=== PATIENT | male | born 1975 | race Caucasian/White ===

== ENCOUNTER 2017-05-16 19:27 | Emergency (ER) | payer MEDICARE, MEDICAID, SELFPAY ==
[2017-05-16 19:27] VITALS: BP 142/65; PULSE 72; RESP 17; TEMP 36.2; O2SAT 98; BMI 22.1
--- NOTE | 2017-05-16 19:32 | ED.RN ---
CALLED FOR EKG.
[2017-05-16 19:45] VITALS: BP 130/77; PULSE 67; RESP 16; O2SAT 99
--- NOTE | 2017-05-16 19:54 | EKG12_ITS ---
Test Reason : CP Blood Pressure : / mmHG Vent. Rate : 068 BPM Atrial Rate : 068 BPM P-R Int : 168 ms QRS Dur : 088 ms QT Int : 390 ms P-R-T Axes : 053 -27 042 degrees QTc Int : 414 ms Normal sinus rhythm Normal ECG Confirmed by DAWIT MCCOLLUM, LAURITA ([id number]), managing editor LILIAN JAY ([id number]) on 05/19/2017 3:35:11 PM Referred By: BLAKE Confirmed By:LAURITA PASTOR MD
--- NOTE | 2017-05-16 19:54 | CT_ITS ---
STUDY: CTA CHEST REASON FOR EXAM: Male, 41 years old. Chest pain and dyspnea. History of aortic dissection. RADIATION DOSAGE (If Supplied By Facility): CTDIvol = ( ) mGy, DLP = ( ) mGycm TECHNIQUE: The examination was performed with the intravenous administration of 75 ml of Isovue 370 contrast material. Post-processing of the angiographic images was performed, with multiplanar reformation and 3D reconstruction. Individualized dose optimization techniques were used for this CT. COMPARISON: Prior chest CTA of March 20, 2017 FINDINGS: Normal enhancement of the main pulmonary artery and right and left pulmonary arteries. Normal enhancement of the bilateral peripheral pulmonary arteries. There is no demonstrated pulmonary embolism. Normal thoracic aorta and visualized great vessels. Stable chronic type a aortic dissection extending into the left subclavian artery, innominate artery, and left common carotid artery. Stable dilatation of the proximal thoracic aorta above the prosthetic aortic valve and stable general dilatation of the thoracic aorta. Left ventricular hypertrophy. Negative for coronary calcifications. Negative for substantial pericardial effusion. Normal mediastinum. Normal hilar regions. Normal visualized trachea and bronchi. Minimal posterior bibasilar atelectatic changes. Negative for major consolidation, new infiltrates or pleural effusion. Normal chest wall structures. Status post prior midline sternotomy. No acute bone findings or changes. CT/CTA Chest W/WO Contrast IMPRESSION: Stable chronic type a aortic dissection extending into the innominate artery, left common carotid artery left subclavian artery without evidence of further extension. The dissection extends in the included upper abdomen to the level of the superior mesenteric artery and celiac artery without dissection extending into those arteries. Stable dilatation of the thoracic aorta. Negative for pulmonary embolus. Left ventricular hypertrophy. Minimal posterior bibasilar atelectatic changes without other acute pulmonary findings. Negative for pleural effusion. Electronically Signed: Asha Clarke MD at 21:05 EST , Service support ,
[2017-05-16 19:57] VITALS: O2SAT 99
--- NOTE | 2017-05-16 19:58 | ED.VISSUMM ---
- ER Visit Summary Date of Service: 05/16/17 Chief Complaint: [] Chest pain History of Present Illness: The patient is a 41 M [] complaining of pleuritic chest pain with deep inspiration. He localizes the pain to his left lbhqsa-leuzdq-tusboyc chest wall. He denies any PE risk factors. He does have a significant history of thoracic ascending aortic dissection that was repaired surgically. Physical Examination: [] Afebrile, vital signs stable. Cardiovascular exam is regular rate and rhythm. Lungs are clear to auscultation. Abdomen is soft and nontender. Test Results: [] CTA of the chest: Negative for acute pathology. Labs: CBC, BMP within normal limits. Troponin negative. EKG: Normal sinus rhythm, rate of 68 without ischemic changes. Emergency Department Course and Treatment: [] Patient evaluated for possibility of pulmonary embolus and this was found to be negative. Labs and diagnostic studies all normal. Patient was encouraged to follow-up with his primary care physician. Treatment Plan: [] Discharge and follow-up with PCP. Disposition: [] Discharge, stable. Impression: [] Chest wall pain, unknown etiology This note was generated with [employer] dictation software. It may contain incorrect words, spelling, and punctuation that were not noted in review of the chart prior to signing ED Disposition - Plan for ED Patient: Chief Complaint: Chest Pain Referrals: Nguyễn Stark Chi, MD [Primary Care Provider] -
[2017-05-16] MEDS: Aspirin 81 MG TAB.CHEW 324 MG PO (20:00)
--- NOTE | 2017-05-16 20:01 | ED.DCSUM_ITS ---
- ER Visit Summary Date of Service: 05/16/17 Chief Complaint: [] Chest pain History of Present Illness: The patient is a 41 M [] complaining of pleuritic chest pain with deep inspiration. He localizes the pain to his left infero- mary lou-lateral chest wall. He denies any PE risk factors. He does have a significant history of thoracic ascending aortic dissection that was repaired surgically. Physical Examination: [] Afebrile, vital signs stable. Cardiovascular exam is regular rate and rhythm. Lungs are clear to auscultation. Abdomen is soft and nontender. Test Results: [] CTA of the chest: Negative for acute pathology. Labs: CBC, BMP within normal limits. Troponin negative. EKG: Normal sinus rhythm, rate of 68 without ischemic changes. Emergency Department Course and Treatment: [] Patient evaluated for possibility of pulmonary embolus and this was found to be negative. Labs and diagnostic studies all normal. Patient was encouraged to follow-up with his primary care physician. Treatment Plan: [] Discharge and follow-up with PCP. Disposition: [] Discharge, stable. Impression: [] Chest wall pain, unknown etiology This note was generated with [employer] dictation software. It may contain incorrect words, spelling, and punctuation that were not noted in review of the chart prior to signing ED Disposition - Plan for ED Patient: Chief Complaint: Chest Pain Referrals: Nguyễn Stark Chi, MD [Primary Care Provider] -
[2017-05-16 20:28] LABS: Absolute Lymphocyte Count 1.74 X10^3/ul (0.83-4.51); Absolute Neutrophil Count 4.3 X10^3/uL (2.0-7.7); Basophil# 0.01 X10^3/uL; Basophil% 0.2 % (0-1); Eosinophil# 0.05 X10^3/uL; Eosinophils% 0.8 % (0-5); Hematocrit 43.8 % (40-54); Hemoglobin 14.8 g/dl (13.0-16.5); Lymphocyte # 1.74 X10^3/ul (4.0); Lymphocyte % 26.2 % (19-41); Mean Corp Hgb Conc 33.8 g/gl (32-36); Mean Corpuscular Hgb 29.5 pg (27.0-32.0); Mean Corpuscular Volume 87.4 fL (80-94); Mean Platelet Vol. 10.4 fl (6.2-12.0); Monocyte# 0.54 X10^3/uL; Monocyte% 8.1 % (0-10); Neutrophil # 4.28 X10^3/uL (2.7-7.7); Neutrophil % 64.4 % (47-70); Platelet Count 205 K/mm3 (150-450); RBC Distribution Width CV 12.8 % (11.6-14.6); RBC Distribution Width SD 40.9 fl (35.1-43.9); Red Blood Count 5.01 M/mm3 (4.6-6.2); White Blood Count 6.6 K/mm3 (4.4-11.0)
[2017-05-16 20:29] LABS: POSITIVE COUNT NO; POSITIVE DIFFERENTIAL NO; POSITIVE MORPHOLOGY NO
[2017-05-16 20:51] LABS: Anion Gap 7 (5-15); BUN 20 mg/dL (7-18); BUN/Creat Ratio 17.7 RATIO (10-20); Calcium,Total 8.8 mg/dL (8.5-10.1); Chloride 107 mmol/L (98-107); Creatinine, Serum 1.13 mg/dL (0.70-1.30); EST Glomerular Filtration Rate 75 mL/min (>60); Est Glom Filt Rate - Afr Amer 91 mL/min (>60); Estimated Creatinine Clearance 82.15 ml/min; Glucose 94 mg/dL (74-106); Potassium 4.1 mmol/L (3.5-5.1); Sodium Level 140 mmol/L (136-145)
--- NOTE | 2017-05-16 21:09 | ED.DEP ---
ED Disposition - Plan for ED Patient: Disposition: Home or Assisted Living Chief Complaint: Chest Pain Instructions: ED Chest Wall Pain Jane Harris Referrals: Nguyễn Stark Chi, MD [Primary Care Provider] -
[2017-05-16 21:10] VITALS: BP 114/79; PULSE 68; RESP 16; O2SAT 98
[2017-05-16 21:13] VITALS: BP 114/79; PULSE 67; RESP 16; O2SAT 96
== END 2017-05-16 21:20 | disposition home or self-care (01) ==
PROVIDERS: Emergency Provider Emergency Medicine; Family Provider Family Medicine Geriatric Medicine; PCP Family Medicine Geriatric Medicine
DX: R07.89 Other chest pain (principal); I71.2 Thoracic aortic aneurysm, without rupture; Z79.82 Long term (current) use of aspirin; Z79.01 Long term (current) use of anticoagulants; Z79.899 Other long term (current) drug therapy
CPT/HCPCS: 71275; 80048; 84484; 85025; 93005; 99285; Q9967; A4216

== ENCOUNTER → 2017-07-17 10:22 | Outpatient (CLI) | payer MEDICARE, MEDICAID, SELFPAY ==
--- NOTE | 2017-07-17 10:23 | CDU_ITS ---
Reason For Study: dissection of carotid artery Rt. Velocities/BP Lt. Velocities/BP Prox CCA 115/15.8 cm/sec. Prox CCA 114/17.0 cm/sec. Mid CCA 116/19.9 cm/sec. Mid CCA 128/21.1 cm/sec. Dist CCA 111/20.5 cm/sec. Dist CCA 84.4/15.8 cm/sec. Prox ICA 88.5/16.4 cm/sec. Prox ICA 67.4/18.2 cm/sec. Mid ICA 82.1/24.0 cm/sec. Mid ICA 68.6/21.7 cm/sec. Dist ICA 78.0/25.2 cm/sec. Dist ICA 73.9/24.6 cm/sec. Rt. ICA/CCA = .8. Lt. ICA/CCA = .6. Prox ECA 121/19.3 cm/sec. Prox ECA 101/17.6 cm/sec. Rt. Vert. 66.3/13.5 cm/sec. Lt. Vert. 52.8/15.8 cm/sec. Right Extracranial There is intimal thickening but no significant atherosclerotic plaque noted in the right common carotid artery. There is intimal thickening but no significant atherosclerotic plaque noted in the right internal carotid artery. There is intimal thickening but no significant atherosclerotic plaque noted in the right external carotid artery. Antegrade flow is noted in the right vertebral artery. Left Extracranial There is intimal thickening but no significant atherosclerotic plaque noted in the left common carotid artery. There is intimal thickening but no significant atherosclerotic plaque noted in the left internal carotid artery. There is intimal thickening but no significant atherosclerotic plaque noted in the left external carotid artery. Antegrade flow is noted in the left vertebral artery. Procedure Carotid Duplex [id number]. The exam was diagnostic. Exam performed in department. Interpretation Summary No significant atherosclerotic plaque or stenosis noted in the internal carotid arteries bilaterally. Flow within the vertebral arteries is antegrade bilaterally. Ordering Physician: Kwesi Coy Referring Physician: Nguyễn Stark Chi Performed By: Claude Griffin, RVT
== END ==
PROVIDERS: Family Provider Family Medicine Geriatric Medicine; PCP Family Medicine Geriatric Medicine; Visit Provider Psychiatry & Neurology Neurology
DX: I77.71 Dissection of carotid artery (principal)
CPT/HCPCS: 93880

== ENCOUNTER 2017-07-30 17:07 | Emergency (ER) | payer MEDICARE, MEDICAID, SELFPAY ==
[2017-07-30 17:08] VITALS: BP 142/78; PULSE 75; RESP 16; TEMP 36.8; O2SAT 99; BMI 25.1
--- NOTE | 2017-07-30 17:12 | EKG12_ITS ---
Test Reason : CP Blood Pressure : / mmHG Vent. Rate : 066 BPM Atrial Rate : 066 BPM P-R Int : 178 ms QRS Dur : 084 ms QT Int : 398 ms P-R-T Axes : 050 -38 038 degrees QTc Int : 417 ms Normal sinus rhythm Left axis deviation Inferior infarct , age undetermined , cannot be excluded Abnormal ECG Confirmed by ENZO MCCOLLUM, HAILEY ([id number]), managing editor LILIAN JAY ([id number]) on 08/05/2017 3:09:24 PM Referred By: YANIQUE Confirmed By:HAILEY GIRALDO MD
--- NOTE | 2017-07-30 17:20 | RAD_ITS ---
STUDY: X-RAY CHEST REASON FOR EXAM: Male, 41 years old. Chest pain. History of aortic dissection. TECHNIQUE: Single AP portable view of the chest. COMPARISON: April 04, 2017. FINDINGS: The lungs are clear and expanded. There is no demonstrated pleural abnormality. Sternal cerclage wires are present from a prior sternotomy. Normal mediastinum and antony. Normal visualized pulmonary arteries. Normal visualized aortic arch and descending thoracic aorta. Normal visualized thoracic spine. Normal visualized ribs, clavicles, and shoulders. There is no demonstrated abnormality of the visualized soft tissue structures of the upper abdomen. RAD/Chest 1 View (Portable) IMPRESSION: Degenerative changes, as described above. No demonstrated acute cardiopulmonary process. Stable appearance. Electronically Signed: Tu Wilkerson MD at 18:02 EDT , Service support ,
--- NOTE | 2017-07-30 17:27 | CT_ITS ---
STUDY: CTA NECK WITH CONTRAST REASON FOR EXAM: Male, 41 years old. Pain. History of dissection. RADIATION DOSAGE (If Supplied By Facility): CTDIvol = ( 13.64 ) mGy, DLP = ( 974.30 ) mGycm TECHNIQUE: CT angiography with multi-detector data acquisition was performed from the aortic arch to the skull base following intravenous administration of 100 ml of Isovue 370 contrast. MIP images were reconstructed from the axial data set. Post-processing of the angiographic images was performed, with multiplanar reformation and 3D reconstruction. Individualized dose optimization techniques were used for this CT. COMPARISON: CTA chest dated 06/05/2017. CTA neck dated 03/31/2014. FINDINGS: AORTIC ARCH: There is a stable type a aortic dissection which originates in the descending aorta. Normal origins of the brachiocephalic, left common carotid, and left subclavian arteries. RIGHT CAROTID ARTERIES: Normal right common carotid artery (CCA). Normal right common carotid bulb. Normal origin of the right internal carotid (ICA) artery without a hemodynamically significant stenosis. Normal visualized cervical portion of the right internal carotid artery. Normal origin of the right external carotid artery (ECA). LEFT CAROTID ARTERIES: Stable dissection extending into the left common carotid artery. The dissection ends just prior to the bifurcation of the left internal and external carotid arteries. Normal origin of the left internal carotid (ICA) artery without a hemodynamically significant stenosis. Normal visualized cervical portion of the left internal carotid artery. Normal origin of the left external carotid artery (ECA). VERTEBRAL ARTERIES: A normal right vertebral artery. There is a stable dissection of the left subclavian artery which extends into the proximal left vertebral artery. CT/CTA Neck W/WO Contrast IMPRESSION: Normal right internal carotid artery. Stable dissection in the left common carotid artery which terminates just prior to the bifurcation of the left internal and external carotid arteries. Stable dissection in the proximal left vertebral artery. Please see the CTA Chest for additional details. Electronically Signed: Haile Hurley, at 18:53 EDT Tel , Service support ,
--- NOTE | 2017-07-30 17:27 | CT_ITS ---
STUDY: CTA CHEST REASON FOR EXAM: Male, 41 years old. Chest pain. History of dissection. RADIATION DOSAGE (If Supplied By Facility): CTDIvol = ( 13.64 ) mGy, DLP = ( 974.30 ) mGycm TECHNIQUE: The examination was performed with the intravenous administration of 100 ml of Isovue 370 contrast material. Post-processing of the angiographic images was performed, with multiplanar reformation and 3D reconstruction. Individualized dose optimization techniques were used for this CT. COMPARISON: 05/16/2017. FINDINGS: There is a stable type a aortic dissection which originates in the distal ascending aorta and extends through the aortic arch and descending thoracic aorta and into the visualized upper abdominal aorta. The dissection extends into the proximal brachiocephalic artery, but does not extend into the right subclavian artery or common carotid artery. The dissection extends into the the left common carotid artery and left subclavian artery. The dissection extends from the left subclavian artery into the proximal portion of the left vertebral artery. These findings are stable when compared with the prior exam. There are no filling defects within the pulmonary arteries to suggest pulmonary embolus. The heart and pericardium are within normal limits. The patient is status post sternotomy with stable postsurgical changes in the aortic root with stable dilatation of the aortic root. The heart and pericardium are within normal limits. There is no thoracic lymphadenopathy. There are no pulmonary infiltrates or pleural effusions. There is no pneumothorax. The visualized osseous structures are intact. CT/CTA Chest W/WO Contrast IMPRESSION: Stable type A aortic dissection as described above. The dissection is again noted to extend into the visualized upper abdominal aorta. However the dissection continues below the [id number] of this study. Therefore, the abdominal extent of the dissection is not evaluated on this exam. (The dissection continued through the entire abdominal aorta on the CT dated 04/18/2017). No evidence of pulmonary embolus. Clear lungs. Status post sternotomy with stable postsurgical changes in the aortic root with stable dilatation of the aortic root. Electronically Signed: Haile Hurley, at 19:01 EDT Tel , Service support ,
--- NOTE | 2017-07-30 17:37 | ED.DCSUM_ITS ---
- ER Visit Summary Date of Service: 07/30/17 Chief Complaint: Chest pain, neck pain History of Present Illness: The patient is a 41 M with history of aortic dissection that was surgically repaired in 2013 presents to the emergency department chest pain into his neck. Patient states that at that time, he had dissected into both carotid arteries. He states that he had been recovering without issue. Today, he began to have some substernal heaviness in his mid chest that went into his right neck. He describes some pain in his right neck worse when he moves. He denies any fevers or chills. He denies any trauma. He denies any recent coughing or sneezing. He denies any other systemic symptoms. He states that the pain is different than when he and his prior dissection. He did recently have carotid Dopplers this month which were unremarkable. He states he has been compliant with all his medications. Physical Examination: Vital signs reviewed General: Well-nourished, well-developed Head: Normocephalic, atraumatic Eyes: Pupils equal and reactive, extraocular muscles intact Neck, supple, no lymphadenopathy Heart: Regular rate and rhythm Respiratory: No distress, clear bilaterally Abdomen: Soft, nontender, nondistended, no peritoneal signs Back: Nontender Extremities: Nontender, no edema, no cords Skin: Normal color no rash Neuro: Alert and oriented, no focal or lateralizing deficits Test Results: [] Emergency Department Course and Treatment: The patient was having pain up into his neck. He does have a history of known dissection. He has a normal neurologic examination. He has had no trauma. However, given his history I did repeat CTA of the chest and neck. The CT is unchanged. He does show stable dissection. Cardiac enzymes are unremarkable. The patient has remained pain-free. He was mostly just concerned that his dissection may be worsening. At this time, I do not feel that any further workup is necessary. The patient will be discharged. Treatment Plan: [] Disposition: Discharge Impression: Chest pain This note was generated with [employer] dictation software. It may contain incorrect words, spelling, and punctuation that were not noted in review of the chart prior to signing ED Disposition - Plan for ED Patient: Chief Complaint: Chest Pain Instructions: ED Chest Pain NonCardiac Referrals: Nguyễn Stark Chi, MD [Primary Care Provider] -
[2017-07-30 17:40] VITALS: O2SAT 96
[2017-07-30 17:54] LABS: Absolute Lymphocyte Count 1.26 X10^3/ul (0.83-4.51); Absolute Neutrophil Count 4.2 X10^3/uL (2.0-7.7); Basophil# 0.02 X10^3/uL; Basophil% 0.3 % (0-1); Eosinophil# 0.05 X10^3/uL; Eosinophils% 0.9 % (0-5); Hematocrit 44.7 % (40-54); Lymphocyte # 1.26 X10^3/ul (4.0); Lymphocyte % 21.7 % (19-41); Mean Corp Hgb Conc 33.6 g/gl (32-36); Mean Corpuscular Hgb 29.5 pg (27.0-32.0); Mean Corpuscular Volume 87.8 fL (80-94); Mean Platelet Vol. 10.4 fl (6.2-12.0); Monocyte# 0.31 X10^3/uL; Monocyte% 5.3 % (0-10); Neutrophil # 4.15 X10^3/uL (2.7-7.7); Neutrophil % 71.6 % (47-70); Platelet Count 201 K/mm3 (150-450); RBC Distribution Width CV 12.3 % (11.6-14.6); RBC Distribution Width SD 39.7 fl (35.1-43.9); Red Blood Count 5.09 M/mm3 (4.6-6.2); White Blood Count 5.8 K/mm3 (4.4-11.0)
[2017-07-30 17:57] LABS: POSITIVE COUNT NO; POSITIVE DIFFERENTIAL NO; POSITIVE MORPHOLOGY NO
[2017-07-30 18:05] LABS: Anion Gap 7 (5-15); BUN 15 mg/dL (7-18); BUN/Creat Ratio 13.9 RATIO (10-20); Calcium,Total 8.6 mg/dL (8.5-10.1); Chloride 108 mmol/L (98-107); Creatinine, Serum 1.08 mg/dL (0.70-1.30); EST Glomerular Filtration Rate 79 mL/min (>60); Est Glom Filt Rate - Afr Amer 96 mL/min (>60); Glucose 113 mg/dL (74-106); Sodium Level 141 mmol/L (136-145)
[2017-07-30 18:53] VITALS: BP 124/73; PULSE 64; RESP 16; O2SAT 98
[2017-07-30 19:35] VITALS: BP 129/77; PULSE 67; RESP 16; O2SAT 97
== END 2017-07-30 19:36 | disposition home or self-care (01) ==
LOC: ED 18:28
PROVIDERS: Emergency Provider Emergency Medicine; Family Provider Family Medicine Geriatric Medicine; PCP Family Medicine Geriatric Medicine
DX: R07.9 Chest pain, unspecified (principal); I10 Essential (primary) hypertension; E78.00 Pure hypercholesterolemia, unspecified; Z79.82 Long term (current) use of aspirin; Z79.01 Long term (current) use of anticoagulants; Z79.899 Other long term (current) drug therapy; Z86.73 Personal history of transient ischemic attack (TIA), and cerebral infarction without residual deficits
CPT/HCPCS: 70498; 71045; 71275; 80048; 84484; 85025; 93005; 99285; Q9967; A4216

== ENCOUNTER → 2017-09-08 10:25 | Outpatient (CLI) | payer MEDICARE, MEDICAID, SELFPAY ==
--- NOTE | 2017-09-08 10:39 | RAD_ITS ---
STUDY: X-RAY - CERVICAL SPINE REASON FOR EXAM: Male, 41 years old. Neck pain and headache TECHNIQUE: 8 view(s) of the cervical spine were obtained. COMPARISON: None FINDINGS: Normal anterior atlantoaxial articulation. Normal odontoid process. Normal cervical lordosis. Normal vertebral bodies and endplates. Normal disc space heights. Normal visualized intervertebral neuroforamina. No evidence of instability on the flexion or extension views The soft tissue structures are unremarkable. There is no demonstrated fracture of the cervical spine. RAD/Cerv Spine Obl/Flex/Ext Comp IMPRESSION: Normal x-ray examination of the visualized cervical spine. Electronically Signed: Cornelio Thorpe MD at 11:38 EDT , Service support ,
--- NOTE | 2017-09-08 10:40 | RAD_ITS ---
STUDY: X-RAY - THORACIC SPINE REASON FOR EXAM: Male, 41 years old. Mid back pain TECHNIQUE: 4 view(s) of the thoracic spine were obtained. COMPARISON: None. FINDINGS: Normal kyphosis of the thoracic spine. There is no substantial scoliosis. Normal thoracic vertebrae and endplates. Normal disc space heights. The soft tissue structures are unremarkable. RAD/Thoracic Spine 3 Views IMPRESSION: Normal x-ray examination of the thoracic spine. Electronically Signed: Cornelio Thorpe MD at 11:39 EDT , Service support ,
== END ==
PROVIDERS: Family Provider Family Medicine Geriatric Medicine; PCP Family Medicine Geriatric Medicine; Visit Provider Psychiatry & Neurology Neurology
DX: M54.2 Cervicalgia (principal); M54.6 Pain in thoracic spine
CPT/HCPCS: 72052; 72072

== ENCOUNTER → 2017-11-06 13:09 | Outpatient (CLI) | payer MEDICARE, MEDICAID, SELFPAY ==
[2017-11-06 17:30] LABS: Absolute Lymphocyte Count 1.45 X10^3/ul (0.83-4.51); Absolute Neutrophil Count 2.8 X10^3/uL (2.0-7.7); Basophil# 0.01 X10^3/uL; Basophil% 0.2 % (0-1); Eosinophil# 0.07 X10^3/uL; Eosinophils% 1.4 % (0-5); Hematocrit 45.4 % (40-54); Hemoglobin 15.8 g/dl (13.0-16.5); Lymphocyte # 1.45 X10^3/ul (4.0); Lymphocyte % 29.7 % (19-41); Mean Corp Hgb Conc 34.8 g/gl (32-36); Mean Corpuscular Hgb 29.8 pg (27.0-32.0); Mean Corpuscular Volume 85.7 fL (80-94); Mean Platelet Vol. 11.2 fl (6.2-12.0); Monocyte# 0.53 X10^3/uL; Monocyte% 10.9 % (0-10); Neutrophil % 57.4 % (47-70); Platelet Count 224 K/mm3 (150-450); RBC Distribution Width CV 12.5 % (11.6-14.6); RBC Distribution Width SD 38.9 fl (35.1-43.9); White Blood Count 4.9 K/mm3 (4.4-11.0)
[2017-11-06 17:33] LABS: POSITIVE COUNT NO; POSITIVE DIFFERENTIAL NO; POSITIVE MORPHOLOGY NO
[2017-11-06 17:57] LABS: ALB/GLOB Ratio 1.2 RATIO (0.9-2.4); AST(SGOT) 23 U/L (15-37); Alanine Aminotransfer ALT/SGPT 33 U/L (16-61); Albumin, Serum 3.9 g/dL (3.2-5.0); Alkaline Phosphatase 76 U/L (45-117); Anion Gap 6 (5-15); BUN 16 mg/dL (7-18); BUN/Creat Ratio 13.4 RATIO (10-20); Calcium,Total 8.8 mg/dL (8.5-10.1); Chloride 108 mmol/L (98-107); Creatinine, Serum 1.19 mg/dL (0.70-1.30); EST Glomerular Filtration Rate 71 mL/min (>60); Est Glom Filt Rate - Afr Amer 86 mL/min (>60); Globulin 3.3 g/dL (2.2-4.2); Glucose 77 mg/dL (74-106); Potassium 4.7 mmol/L (3.5-5.1); Protein, Total 7.2 g/dL (6.4-8.2); Sodium Level 141 mmol/L (136-145); Thyroid Stim Hormone (TSH) 1.64 uIU/mL (0.358-3.74)
== END ==
PROVIDERS: Family Provider Family Medicine Geriatric Medicine; PCP Family Medicine Geriatric Medicine; Visit Provider Family Medicine Geriatric Medicine
DX: R53.83 Other fatigue (principal); F52.8 Other sexual dysfunction not due to a substance or known physiological condition
CPT/HCPCS: 36415; 80053; 84403; 84443; 85025

== ENCOUNTER 2018-01-02 09:16 | Emergency (ER) | payer MEDICARE, MEDICAID, SELFPAY ==
[2018-01-02 09:17] VITALS: BP 171/81; PULSE 69; RESP 16; O2SAT 99; BMI 26.6
[2018-01-02 09:21] VITALS: TEMP 36.8
--- NOTE | 2018-01-02 09:29 | EKG12_ITS ---
Test Reason : CP Blood Pressure : / mmHG Vent. Rate : 070 BPM Atrial Rate : 070 BPM P-R Int : 190 ms QRS Dur : 088 ms QT Int : 390 ms P-R-T Axes : 024 -34 011 degrees QTc Int : 421 ms Normal sinus rhythm Left axis deviation Abnormal ECG Confirmed by DAWIT MCCOLLUM, LAURITA ([id number]), online content editor LILIAN JAY ([id number]) on 01/07/2018 8:39:16 AM Referred By: Nguyễn Stark Confirmed By:LAURITA PASTOR MD
--- NOTE | 2018-01-02 09:30 | CT_ITS ---
STUDY: CTA NECK WITH CONTRAST REASON FOR EXAM: Male, 42 years old. Neck pain and chest pain. History of prior aortic dissection and repair. RADIATION DOSAGE (If Supplied By Facility): CTDIvol = ( 11.25 ) mGy, DLP = ( 806.44 ) mGycm TECHNIQUE: CT angiography with multi-detector data acquisition was performed from the aortic arch to the skull base following intravenous administration of 100 ml of Isovue 370 contrast. MIP images were reconstructed from the axial data set. Post-processing of the angiographic images was performed, with multiplanar reformation and 3D reconstruction. Individualized dose optimization techniques were used for this CT. COMPARISON: Comparison is made with prior study dated July 30, 2017. 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 Both the true and false lumina are opacified. There is evidence of postoperative changes at the level of the aortic root. The superior mesenteric artery and celiac artery arise from the anterior lateral aspect of the true lumen. The dissection extends into the proximal portion of the left subclavian artery as well as the proximal portion of the left common carotid artery. RIGHT CAROTID ARTERIES: Normal right common carotid artery (CCA). Normal right common carotid bulb. Normal origin of the right internal carotid (ICA) artery without a hemodynamically significant stenosis. Normal visualized cervical portion of the right internal carotid artery. Normal origin of the right external carotid artery (ECA). LEFT CAROTID ARTERIES: Normal left common carotid artery (CCA). Normal left common carotid bulb. Normal origin of the left internal carotid (ICA) artery without a hemodynamically significant stenosis. Normal visualized cervical portion of the left internal carotid artery. Normal origin of the left external carotid artery (ECA). VERTEBRAL ARTERIES: Normal bilateral vertebral arteries. 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 The dissection extends into the origin of the left subclavian artery and left common carotid artery. Both the true and false lumina are patent. Electronically Signed: Simon Loera MD at 11:22 EDT Tel [phone], Service support , STUDY: CTA CHEST REASON FOR EXAM: Male, 42 years old. History of the type a Balwinder type A aortic dissection and prior repair. Chest pain. RADIATION DOSAGE (If Supplied By Facility): CTDIvol = ( 11.25 ) mGy, DLP = ( 806.44 ) mGycm TECHNIQUE: The examination was performed with the intravenous administration of 100 ml of Isovue 370 contrast material. Post-processing of the angiographic images was performed, with multiplanar reformation and 3D reconstruction. Individualized dose optimization techniques were used for this CT. COMPARISON: Comparison is made with prior examination dated July 30, 2017. FINDINGS: Normal enhancement of the main pulmonary artery and right and left pulmonary arteries. Normal enhancement of the bilateral peripheral pulmonary arteries. There is no demonstrated pulmonary embolism. There is evidence of aortic dissection involving the descending aorta, aortic arch and descending thoracic aorta. Both lumina are patent. There is evidence of prior surgical repair involving the descending thoracic aorta. Once again, the dissection extends into the proximal portion of the right brachiocephalic artery as well as the left subclavian and left common carotid arteries. Normal heart and pericardium. Normal mediastinum. Normal hilar regions. Normal visualized trachea and bronchi. The lungs are well expanded. Normal pulmonary parenchyma. Normal pleura. Normal chest wall structures. Normal osseous structures. Is evidence of a dissection. Both true and false lumens are patent. The visceral vessels arise from the anterior aspect. The right renal artery arises from the false lumen and the left renal artery from the true lumen. CT/CTA Chest W/WO Contrast IMPRESSION: Stable examination. Electronically Signed: Simon Loera MD at 11:29 EDT Tel [phone], Service support ,
--- NOTE | 2018-01-02 09:34 | RAD_ITS ---
STUDY: X-RAY CHEST REASON FOR EXAM: Male, 42 years old. Chest pain. TECHNIQUE: Single AP portable view of the chest. COMPARISON: Comparison is made with prior examination dated July 30, 2017. FINDINGS: EKG electrodes are seen. The lungs are clear and expanded. There is no demonstrated pleural abnormality. Sternal cerclage wires are present from a prior sternotomy. Normal mediastinum and antony. Normal visualized pulmonary arteries. Normal visualized aortic arch and descending thoracic aorta. Normal visualized thoracic spine. Normal visualized ribs, clavicles, and shoulders. There is no demonstrated abnormality of the visualized soft tissue structures of the upper abdomen. RAD/Chest 1 View (Portable) IMPRESSION: No acute abnormality is seen. Electronically Signed: Simon Loera MD at 11:18 EDT Tel [phone], Service support ,
--- NOTE | 2018-01-02 09:36 | ED.DCSUM_ITS ---
- ER Visit Summary Date of Service: 01/02/18 Chief Complaint: Neck and chest pain History of Present Illness: The patient is a 42 M history of 4 years ago having aortic dissection. He also had a stroke at that time that left him with left hand weakness. They did an aortic sleeve repair and an aortic valve repair. He also has known bilateral carotid dissections. He states the last several days he has had gradual onset of neck pain and then developing chest pain. No nausea. No diaphoresis. No significant shortness of breath. He had a prior evaluation for this July of this year which was negative. No new findings at that time. He denies any history of coronary disease. He denies any recent exertional tones. Physical Examination: Middle-aged male. No acute distress. Initial blood pressure is elevated 171/81. Pulse ox 9 9% on room air no signs of hypoxia. He is in no distress. H EENT exam unremarkable. Neck nontender. Lungs clear to auscultation bilaterally. Heart regular rhythm rate about 70. He does have a 3/6 systolic ejection murmur. Consistent with his prosthetic aortic valve. Abdomen soft and nontender. No peritoneal signs. He is moving all 4 extremities. He does have significant weakness and loss of dexterity with his left hand secondary to his prior stroke. Neurologically is awake and alert. Test Results: CBC normal. BMP normal. Troponin normal. EKG sinus rhythm rate of 70 with no acute abnormality. Plain chest x-ray portable one view showed no acute abnormality. Prior sternotomy. CTA of the neck showed no acute abnormality and no change in his prior dissections. CTA of the chest again showed no acute abnormality. These radiographic studies were all read both by myself and the radiologist. Emergency Department Course and Treatment: Patient will undergo a cardiac workup with both a CTA of his neck and chest. Treated with IV fluids due to the contrast load. Treatment Plan: Repeat exam doing well at 1130. I went over all test results with the patient. He is comfortable being discharged home. Follow-up with his primary care physician. Disposition: Discharge Impression: Neck and chest pain of uncertain etiology History of prior aortic dissection with now a aortic sleeve and prosthetic aortic valve History of bilateral carotid dissections This note was generated with [employer] software. It may contain incorrect words, spelling, and punctuation that were not noted in review of the chart prior to signing ED Disposition - Plan for ED Patient: Chief Complaint: Chest Pain Referrals: Nguyễn Stark Chi, MD [Primary Care Provider] -
[2018-01-02 09:39] LABS: Absolute Lymphocyte Count 1.24 X10^3/ul (0.83-4.51); Absolute Neutrophil Count 3.5 X10^3/uL (2.0-7.7); Basophil# 0.02 X10^3/uL; Basophil% 0.4 % (0-1); Eosinophil# 0.05 X10^3/uL; Eosinophils% 0.9 % (0-5); Hematocrit 45.9 % (40-54); Hemoglobin 15.8 g/dl (13.0-16.5); Lymphocyte # 1.24 X10^3/ul (4.0); Lymphocyte % 23.4 % (19-41); Mean Corp Hgb Conc 34.4 g/gl (32-36); Mean Corpuscular Hgb 29.4 pg (27.0-32.0); Mean Corpuscular Volume 85.5 fL (80-94); Mean Platelet Vol. 10.1 fl (6.2-12.0); Monocyte# 0.44 X10^3/uL; Monocyte% 8.3 % (0-10); Neutrophil # 3.53 X10^3/uL (2.7-7.7); Neutrophil % 66.6 % (47-70); Platelet Count 208 K/mm3 (150-450); RBC Distribution Width CV 12.5 % (11.6-14.6); RBC Distribution Width SD 38.8 fl (35.1-43.9); Red Blood Count 5.37 M/mm3 (4.6-6.2); White Blood Count 5.3 K/mm3 (4.4-11.0)
[2018-01-02 09:40] LABS: POSITIVE COUNT NO; POSITIVE DIFFERENTIAL NO; POSITIVE MORPHOLOGY NO
[2018-01-02 09:51] VITALS: O2SAT 97
[2018-01-02 10:01] LABS: Anion Gap 9 (5-15); BUN 14 mg/dL (7-18); BUN/Creat Ratio 11.4 RATIO (10-20); Chloride 105 mmol/L (98-107); Creatinine, Serum 1.23 mg/dL (0.70-1.30); EST Glomerular Filtration Rate 68 mL/min (>60); Est Glom Filt Rate - Afr Amer 83 mL/min (>60); Estimated Creatinine Clearance 74.92 ml/min; Glucose 91 mg/dL (74-106); Potassium 4.1 mmol/L (3.5-5.1); Sodium Level 141 mmol/L (136-145)
[2018-01-02 10:20] VITALS: BP 120/72; PULSE 65; RESP 16; O2SAT 98
--- NOTE | 2018-01-02 11:42 | ED.DEP ---
ED Disposition - Plan for ED Patient: Disposition: Home or Assisted Living Chief Complaint: Chest Pain Instructions: ED Chest Pain Atypical Unkn Cause Referrals: Nguyễn Stark Chi, MD [Primary Care Provider] - 3-5 Days if not improving
[2018-01-02 11:55] VITALS: BP 126/82; PULSE 75; RESP 12; O2SAT 98
== END 2018-01-02 12:00 | disposition home or self-care (01) ==
PROVIDERS: Emergency Provider Emergency Medicine; Family Provider Family Medicine Geriatric Medicine; PCP Family Medicine Geriatric Medicine
DX: M54.2 Cervicalgia (principal); R07.9 Chest pain, unspecified; I69.334 Monoplegia of upper limb following cerebral infarction affecting left non-dominant side; I77.71 Dissection of carotid artery; Z95.2 Presence of prosthetic heart valve; Z79.01 Long term (current) use of anticoagulants; Z79.82 Long term (current) use of aspirin; Z79.899 Other long term (current) drug therapy
CPT/HCPCS: 70498; 71045; 71275; 80048; 84484; 85025; 93005; 99285; Q9967; A4216

== ENCOUNTER → 2018-04-09 15:53 | Outpatient (CLI) | payer MEDICARE, MEDICAID, SELFPAY ==
[2018-04-09 15:53] VITALS: BMI 22.1
== END ==
PROVIDERS: Family Provider Family Medicine Geriatric Medicine; PCP Family Medicine Geriatric Medicine; Referring Provider Family Medicine Geriatric Medicine; Visit Provider Family Medicine Geriatric Medicine
DX: R09.89 Other specified symptoms and signs involving the circulatory and respiratory systems (principal)
CPT/HCPCS: 87633

== ENCOUNTER 2018-04-24 10:30 | Outpatient (RCR) | payer MEDICARE, MEDICAID, SELFPAY ==
--- NOTE | 2017-12-09 13:21 | HP.OTEVAL_ITS ---
Patient's Visit Information BECK WANG Jr. is a 42 year old M, referred to Occupational Therapy by Nguyễn Stark, with a diagnosis of left hemiparesis. Date of Evaluation: 12/09/17 Occupational Therapist: Emperatriz Marie, ARIEL/Tila, CHT - Subjective Subjective: Pt returns for OT following a CVA with left UE weakness and decrease in functional ROM - pt states his left UE feels tight most to the time. This limits the ability to use her left UE for BADLS and IADLS. PT would like to decrease the tight feeling and increase use of his left hand with ADLS and IADLS.Pt has complex medical hx with dx of Anorgasmia, Bicuspid aortic valve, Proximal aortic dissection, seizure disorder, somnolence, along with GERD. - Pain left UE/hand 3 Pain Intensity Range: 3, 5 - ROM Shoulder: Right WNL left WFL Elbow: Right left WNL Forearm: right WNL left limited to N Wrist: right WNL left minimal ROM Comments: pt demo with limited functional ROM of left digits/wrist and foream. - Strength Line Helper: right 100# left 25# - Sensation Sensation Comments: tingling throughout left UE/hand - Movement Muscle Tone: left UE mod tone forearm/wrist hand Movement Comments: with movement pts left digits flex once fingers get tight pt has to stop and use is right hand to straighten his left digits/wrist out. - In-Hand Manipulation Finger to Palm Translation: Normal - Right, Severe - Left, Unable - Left Palm to Finger Translation: Normal - Right, Unable - Left Shift: Normal - Right, Unable - Left Rotation: Normal - Right, Unable - Left - DASH-Disabilities of Arm, Shoulder& Hand DASH Sum: 101 - Goals Goal:: pt will demo the ability to use left hand to grasp/release different size objects to use left UE as assisstive hand with BADLs and IADLS by D/C Goal:: pt will demo the ability to manipulate fasteners to increase pts ind. with BADLs and IADLs. Goal:: pt will demo the ability to use left UE for meal prep tasks, cleaning and laundry tasks at a ANTOLIN level by D/C Goal:: Pt will demo the ability to use left UE as assistive hand with functional task for greater than 30 min without needing to stop task and stretch left UE due to increase tone. - Rehabilitation General Assessment: pt demo with increase tone of left UE limiting pts ind. with BADLS and IADLs. Pt would benefit from skilled OT services to increase pts functional use of left UE/hand for BADLs and IADLS. Therapy will see pt 1x week for 12 weeks to challenged the above deficits. Pt agreeable to POC. Rehabilitation Potential: Good - Anticipated Interventions Anticipated Interventions: A/AAROM/PROM, Strengthening, Triggerpoint Release, Modalities, Orthoses, Fine Motor Coord/Bishnu, Neuro Reeducation, ADL Training, Education re assistive Equipment - Visit Plan Frequency: 1x/Week Duration: 3 Months TEXT: Thank you for the opportunity to evaluate your patient. For Medicare and Medicare HMO plans, please review the plan of care and approve it. It will need to be FAXED BACK to us at [phone] for Medicare purposes. Please let me know if there are questions or concerns regarding this plan of care. Physician Signature: Date:
== END 2018-04-24 17:00 | disposition home or self-care (01) ==
LOC: OT 10:30
PROVIDERS: Family Provider Family Medicine Geriatric Medicine; PCP Family Medicine Geriatric Medicine; Visit Provider Family Medicine Geriatric Medicine
DX: G81.94 Hemiplegia, unspecified affecting left nondominant side (principal)
CPT/HCPCS: 97110; 97112; 97140; 97166; 97530

== ENCOUNTER → 2018-05-11 14:06 | Outpatient (CLI) | payer MEDICARE, MEDICAID, SELFPAY ==
[2018-04-09 15:53] VITALS: BMI 22.1
[2018-05-11 16:41] LABS: Absolute Lymphocyte Count 1.33 X10^3/ul (0.83-4.51); Basophil# 0.01 X10^3/uL; Basophil% 0.1 % (0-1); Eosinophil# 0.06 X10^3/uL; Eosinophils% 0.8 % (0-5); Hematocrit 47.1 % (40-54); Hemoglobin 15.4 g/dl (13.0-16.5); Lymphocyte # 1.33 X10^3/ul (4.0); Lymphocyte % 18.8 % (19-41); Mean Corp Hgb Conc 32.7 g/gl (32-36); Mean Corpuscular Hgb 28.8 pg (27.0-32.0); Mean Corpuscular Volume 88.2 fL (80-94); Mean Platelet Vol. 10.8 fl (6.2-12.0); Monocyte# 0.66 X10^3/uL; Monocyte% 9.3 % (0-10); Neutrophil # 4.96 X10^3/uL (2.7-7.7); Neutrophil % 70.3 % (47-70); Platelet Count 223 K/mm3 (150-450); RBC Distribution Width SD 41.3 fl (35.1-43.9); Red Blood Count 5.34 M/mm3 (4.6-6.2); White Blood Count 7.1 K/mm3 (4.4-11.0)
[2018-05-11 16:51] LABS: POSITIVE COUNT NO; POSITIVE DIFFERENTIAL NO; POSITIVE MORPHOLOGY NO
[2018-05-11 17:02] LABS: ALB/GLOB Ratio 1.1 RATIO (0.9-2.4); AST(SGOT) 17 U/L (15-37); Alanine Aminotransfer ALT/SGPT 34 U/L (16-61); Albumin, Serum 3.7 g/dL (3.2-5.0); Alkaline Phosphatase 96 U/L (45-117); Anion Gap 10 (5-15); BUN 16 mg/dL (7-18); BUN/Creat Ratio 13.8 RATIO (10-20); Chloride 108 mmol/L (98-107); Creatinine, Serum 1.16 mg/dL (0.70-1.30); EST Glomerular Filtration Rate 73 mL/min (>60); Est Glom Filt Rate - Afr Amer 88 mL/min (>60); Globulin 3.5 g/dL (2.2-4.2); Glucose 78 mg/dL (74-106); Potassium 4.1 mmol/L (3.5-5.1); Protein, Total 7.2 g/dL (6.4-8.2); Sodium Level 145 mmol/L (136-145); Thyroid Stim Hormone (TSH) 2.09 uIU/mL (0.358-3.74)
== END ==
PROVIDERS: Family Provider Family Medicine Geriatric Medicine; PCP Family Medicine Geriatric Medicine; Visit Provider Family Medicine Geriatric Medicine
DX: F52.8 Other sexual dysfunction not due to a substance or known physiological condition (principal); R53.83 Other fatigue
CPT/HCPCS: 36415; 80053; 84403; 84443; 85025

== ENCOUNTER → 2018-06-25 13:54 | Outpatient (CLI) | payer MEDICARE, SELFPAY ==
[2018-04-09 15:53] VITALS: BMI 22.1
[2018-06-25 17:18] LABS: Absolute Lymphocyte Count 1.01 X10^3/ul (0.83-4.51); Absolute Neutrophil Count 6.9 X10^3/uL (2.0-7.7); Basophil# 0.02 X10^3/uL; Basophil% 0.2 % (0-1); Eosinophil# 0.12 X10^3/uL; Eosinophils% 1.3 % (0-5); Hemoglobin 11.5 g/dl (13.0-16.5); Lymphocyte # 1.01 X10^3/ul (4.0); Mean Corp Hgb Conc 31.1 g/gl (32-36); Mean Corpuscular Hgb 27.4 pg (27.0-32.0); Mean Corpuscular Volume 88.3 fL (80-94); Mean Platelet Vol. 9.3 fl (6.2-12.0); Monocyte# 1.06 X10^3/uL; Monocyte% 11.6 % (0-10); Neutrophil # 6.88 X10^3/uL (2.7-7.7); Neutrophil % 75.2 % (47-70); Platelet Count 427 K/mm3 (150-450); RBC Distribution Width CV 13.6 % (11.6-14.6); RBC Distribution Width SD 43.6 fl (35.1-43.9); Red Blood Count 4.19 M/mm3 (4.6-6.2); White Blood Count 9.2 K/mm3 (4.4-11.0)
[2018-06-25 17:19] LABS: POSITIVE COUNT NO; POSITIVE DIFFERENTIAL NO; POSITIVE MORPHOLOGY NO
[2018-06-25 17:24] LABS: ALB/GLOB Ratio 0.6 RATIO (0.9-2.4); AST(SGOT) 30 U/L (15-37); Alanine Aminotransfer ALT/SGPT 51 U/L (16-61); Albumin, Serum 2.9 g/dL (3.2-5.0); Alkaline Phosphatase 121 U/L (45-117); Anion Gap 8 (5-15); BUN 16 mg/dL (7-18); BUN/Creat Ratio 14.5 RATIO (10-20); Calcium,Total 9.1 mg/dL (8.5-10.1); Chloride 105 mmol/L (98-107); EST Glomerular Filtration Rate 77 mL/min (>60); Est Glom Filt Rate - Afr Amer 94 mL/min (>60); Globulin 4.8 g/dL (2.2-4.2); Glucose 74 mg/dL (74-106); Protein, Total 7.7 g/dL (6.4-8.2); Sodium Level 139 mmol/L (136-145)
== END ==
PROVIDERS: Family Provider Family Medicine Geriatric Medicine; PCP Family Medicine Geriatric Medicine; Visit Provider Family Medicine Geriatric Medicine
DX: D64.9 Anemia, unspecified (principal); E87.6 Hypokalemia
CPT/HCPCS: 36415; 80053; 85025

== ENCOUNTER → 2018-11-09 09:44 | Outpatient (CLI) | payer MEDICARE, SELFPAY ==
[2018-10-14 12:12] VITALS: BMI 27.6
== END ==
LOC: POLAB3 09:44 → LAB.FUTURE 10:50
PROVIDERS: Family Provider Family Medicine Geriatric Medicine; PCP Family Medicine Geriatric Medicine; Visit Provider Family Medicine Geriatric Medicine
DX: F52.8 Other sexual dysfunction not due to a substance or known physiological condition (principal); R53.83 Other fatigue

== ENCOUNTER → 2018-12-15 09:20 | Outpatient (CLI) | payer MEDICARE, SELFPAY ==
[2018-10-14 12:12] VITALS: BMI 27.6
[2018-12-25 12:18] LABS: Absolute Lymphocyte Count 0.98 X10^3/uL (0.83-4.51); Absolute Neutrophil Count 3.2 X10^3/uL (2.0-7.7); Basophil# 0.03 X10^3/uL; Basophil% 0.6 % (0-1); Eosinophil# 0.07 X10^3/uL; Eosinophils% 1.5 % (0-5); Hematocrit 42.5 % (40-54); Hemoglobin 13.1 g/dL (13.0-16.5); Lymphocyte # 0.98 X10^3/ul (4.0); Lymphocyte % 20.8 % (19-41); Mean Corp Hgb Conc 30.8 g/dL (32-36); Mean Corpuscular Hgb 25.7 pg (27.0-32.0); Mean Corpuscular Volume 83.5 fL (80-94); Mean Platelet Vol. 11.1 fl (6.2-12.0); Monocyte# 0.37 X10^3/uL; Monocyte% 7.8 % (0-10); NRBC Flagged by Analyzer 0 % (0-5); Neutrophil # 3.23 X10^3/uL (2.7-7.7); Neutrophil % 68.5 % (47-70); Platelet Count 225 K/mm3 (150-450); RBC Distribution Width CV 14.9 % (11.6-14.6); RBC Distribution Width SD 45.2 fl (35.1-43.9); Red Blood Count 5.09 M/mm3 (4.6-6.2); White Blood Count 4.7 K/mm3 (4.4-11.0)
[2018-12-25 14:59] LABS: AST(SGOT) 22 U/L (15-37); Alanine Aminotransfer ALT/SGPT 29 U/L (16-61); Albumin, Serum 3.5 g/dL (3.2-5.0); Alkaline Phosphatase 101 U/L (45-117); Anion Gap 8 (5-15); BUN 15 mg/dL (7-18); BUN/Creat Ratio 13.4 RATIO (10-20); Calcium,Total 8.6 mg/dL (8.5-10.1); Chloride 112 mmol/L (98-107); Creatinine, Serum 1.12 mg/dL (0.70-1.30); EST Glomerular Filtration Rate 76 mL/min (>60); Est Glom Filt Rate - Afr Amer 92 mL/min (>60); Globulin 3.4 g/dL (2.2-4.2); Glucose 94 mg/dL (74-106); Protein, Total 6.9 g/dL (6.4-8.2); Sodium Level 144 mmol/L (136-145); Thyroid Stim Hormone (TSH) 1.78 uIU/mL (0.358-3.74)
== END ==
LOC: POLAB3 09:21 → LAB.FUTURE 16:43 → POLAB3 16:44 → LAB.FUTURE 16:46 → POLAB3 12-25 10:51
PROVIDERS: Family Provider Family Medicine Geriatric Medicine; PCP Family Medicine Geriatric Medicine; Visit Provider Family Medicine Geriatric Medicine
DX: F52.8 Other sexual dysfunction not due to a substance or known physiological condition (principal); R53.83 Other fatigue
CPT/HCPCS: 36415; 80053; 84403; 84443; 85025

== ENCOUNTER 2019-01-04 12:00 | Outpatient (RCR) | payer MEDICARE, SELFPAY ==
[2018-07-09 11:35] VITALS: BMI 26.4
--- NOTE | 2019-03-19 12:18 | HP.OT.NRP ---
HP - Discharge Summary - Patient Information BECK WANG JrDavid was seen in my office for initial evaluation on . The following Plan of Care was established for this patient: Plan: cont with UE PRE as able- and FES to work on LF digit ext- This patient was last seen in our office 01/04/19. Pertinent comments regarding their Occupational therapy will appear below: pt has not scheduled further apts. due to time lapse in care pt D/C from OT At this point I will be discontinuing this patient from occupational therapy. I would be happy to see this patient again in the future if found appropriate by the physician. Thank you! Emperatriz Marie, OTR/L, CHT
== END 2019-01-04 19:00 | disposition home or self-care (01) ==
LOC: OT 12:00
PROVIDERS: Family Provider Family Medicine Geriatric Medicine; PCP Family Medicine Geriatric Medicine; Referring Provider Family Medicine Geriatric Medicine; Visit Provider Family Medicine Geriatric Medicine
DX: G81.94 Hemiplegia, unspecified affecting left nondominant side (principal)
CPT/HCPCS: 97110; 97112; 97140; 97530

== ENCOUNTER → 2019-05-12 10:09 | Outpatient (CLI) | payer MEDICARE, SELFPAY ==
[2018-10-14 12:12] VITALS: BMI 27.6
[2019-05-12 12:31] LABS: Absolute Neutrophil Count 4.1 X10^3/uL (2.0-7.7); Basophil# 0.02 X10^3/uL; Basophil% 0.3 % (0-1); Eosinophil# 0.14 X10^3/uL; Eosinophils% 2.1 % (0-5); Hematocrit 45.1 % (40-54); Hemoglobin 14.4 g/dL (13.0-16.5); Mean Corp Hgb Conc 31.9 g/dL (32-36); Mean Corpuscular Volume 84.5 fL (80-94); Mean Platelet Vol. 11.2 fl (6.2-12.0); Monocyte# 0.52 X10^3/uL; Monocyte% 7.9 % (0-10); NRBC Flagged by Analyzer 0 % (0-5); Neutrophil # 4.14 X10^3/uL (2.7-7.7); Neutrophil % 63.2 % (47-70); Platelet Count 247 K/mm3 (150-450); RBC Distribution Width CV 14.5 % (11.6-14.6); RBC Distribution Width SD 44.4 fl (35.1-43.9); Red Blood Count 5.34 M/mm3 (4.6-6.2); White Blood Count 6.6 K/mm3 (4.4-11.0)
[2019-05-12 12:44] LABS: ALB/GLOB Ratio 1.1 RATIO (0.9-2.4); AST(SGOT) 17 U/L (15-37); Alanine Aminotransfer ALT/SGPT 24 U/L (16-61); Albumin, Serum 3.5 g/dL (3.2-5.0); Alkaline Phosphatase 85 U/L (45-117); Anion Gap 2 (5-15); BUN 10 mg/dL (7-18); BUN/Creat Ratio 9.1 RATIO (10-20); Calcium,Total 8.7 mg/dL (8.5-10.1); Chloride 112 mmol/L (98-107); EST Glomerular Filtration Rate 77 mL/min (>60); Est Glom Filt Rate - Afr Amer 93 mL/min (>60); Globulin 3.1 g/dL (2.2-4.2); Glucose 92 mg/dL (74-106); Potassium 4.3 mmol/L (3.5-5.1); Protein, Total 6.6 g/dL (6.4-8.2); Sodium Level 143 mmol/L (136-145); Thyroid Stim Hormone (TSH) 1.29 uIU/mL (0.358-3.74)
== END ==
PROVIDERS: PCP Family Medicine Geriatric Medicine; Visit Provider Family Medicine Geriatric Medicine
DX: F52.8 Other sexual dysfunction not due to a substance or known physiological condition (principal); R53.83 Other fatigue
CPT/HCPCS: 36415; 80053; 84403; 84443; 85025

== ENCOUNTER → 2019-11-10 12:47 | Outpatient (CLI) | payer MEDICARE, SELFPAY ==
[2018-10-14 12:12] VITALS: BMI 27.6
[2019-11-10 13:38] LABS: Absolute Lymphocyte Count 1.22 X10^3/uL (0.83-4.51); Absolute Neutrophil Count 4.3 X10^3/uL (2.0-7.7); Basophil# 0.02 X10^3/uL; Basophil% 0.3 % (0-1); Eosinophil# 0.12 X10^3/uL; Eosinophils% 1.9 % (0-5); Hematocrit 45.4 % (40-54); Lymphocyte # 1.22 X10^3/ul (4.0); Lymphocyte % 19.5 % (19-41); Mean Corpuscular Hgb 29.1 pg (27.0-32.0); Mean Corpuscular Volume 88.2 fL (80-94); Mean Platelet Vol. 11.5 fl (6.2-12.0); Monocyte# 0.56 X10^3/uL; Monocyte% 8.9 % (0-10); NRBC Flagged by Analyzer 0 % (0-5); Neutrophil # 4.31 X10^3/uL (2.7-7.7); Neutrophil % 68.9 % (47-70); Platelet Count 246 K/mm3 (150-450); RBC Distribution Width CV 12.7 % (11.6-14.6); RBC Distribution Width SD 41.1 fl (35.1-43.9); Red Blood Count 5.15 M/mm3 (4.6-6.2); White Blood Count 6.3 K/mm3 (4.4-11.0)
[2019-11-10 13:44] LABS: ALB/GLOB Ratio 1.2 RATIO (0.9-2.4); AST(SGOT) 20 U/L (15-37); Alanine Aminotransfer ALT/SGPT 23 U/L (16-61); Albumin, Serum 3.8 g/dL (3.2-5.0); Alkaline Phosphatase 74 U/L (45-117); Anion Gap 2 (5-15); BUN 13 mg/dL (7-18); BUN/Creat Ratio 12.1 RATIO (10-20); Calcium,Total 8.9 mg/dL (8.5-10.1); Chloride 108 mmol/L (98-107); Creatinine, Serum 1.07 mg/dL (0.70-1.30); EST Glomerular Filtration Rate 79 mL/min (>60); Est Glom Filt Rate - Afr Amer 96 mL/min (>60); Globulin 3.1 g/dL (2.2-4.2); Glucose 81 mg/dL (74-106); Potassium 4.7 mmol/L (3.5-5.1); Protein, Total 6.9 g/dL (6.4-8.2); Sodium Level 138 mmol/L (136-145)
== END ==
PROVIDERS: PCP Family Medicine Geriatric Medicine; Visit Provider Family Medicine Geriatric Medicine
DX: F52.8 Other sexual dysfunction not due to a substance or known physiological condition (principal); R53.83 Other fatigue
CPT/HCPCS: 36415; 80053; 84403; 84443; 85025

== ENCOUNTER → 2020-02-03 17:22 | Outpatient (CLI) | payer MEDICARE, MEDICAID, SELFPAY ==
[2018-10-14 12:12] VITALS: BMI 27.6
== END ==
PROVIDERS: PCP Family Medicine Geriatric Medicine; Referring Provider Family Medicine Geriatric Medicine; Visit Provider Family Medicine Geriatric Medicine
DX: R06.89 Other abnormalities of breathing (principal)
CPT/HCPCS: 87633; 87635; C9803; U0003

== ENCOUNTER 2020-02-05 20:24 | Emergency (ER) | payer MEDICARE, MEDICAID, SELFPAY ==
[2018-10-14 12:12] VITALS: BMI 27.6
[2020-02-05 20:25] VITALS: BP 159/79; PULSE 60; RESP 12; TEMP 36.3; O2SAT 100; BMI 25.4
--- NOTE | 2020-02-05 20:36 | EKG12_ITS ---
Test Reason : SOB Blood Pressure : / mmHG Vent. Rate : 050 BPM Atrial Rate : 050 BPM P-R Int : 162 ms QRS Dur : 096 ms QT Int : 430 ms P-R-T Axes : 025 -40 035 degrees QTc Int : 392 ms Sinus bradycardia Left axis deviation Abnormal ECG Confirmed by DAWIT MCCOLLUM, LAURITA ([id number]), editorial cartoonist NABEEL STALEY ([id number]) on 02/08/2020 10:25:48 AM Referred By: KRISTA Confirmed By:LAURITA PASTOR MD
--- NOTE | 2020-02-05 20:39 | ED.VISSUMM ---
- ER Visit Summary Date of Service: 02/05/20 Chief Complaint: Palpitations History of Present Illness: The patient is a 44 M presenting with palpitations and not feeling right. Patient states his symptoms started a few days ago. He has had chills, subjective fever. He states he has intermittent palpitations. He checked his heart rate and it has not been fast but his blood pressure has been running high with a systolic in the 160s. He denies shortness of breath. He has had a mild cough. He has nausea and diarrhea. He complains of mild headache. He was tested for Covid 2 days ago and the results are pending. Denies dizziness or syncope. Physical Examination: Vitals are stable. Patient is afebrile. Alert no acute distress. HEENT exam is unremarkable. Neck is supple. Lungs are clear and equal bilaterally. Heart is regular rate and rhythm, systolic murmur Abdomen is soft nontender nondistended. Extremities are unremarkable. Skin is warm and dry. No focal neurologic deficit. Remainder of exam is unremarkable. Emergency Department Course and Treatment: EKG is sinus bradycardia rate of 50 with no acute ischemic changes. CBC, chemistries unremarkable. Troponin is negative. CTA chest shows new endovascular stent in the aortic arch and descending thoracic aorta. Stable dissecting thoracic aneurysm. On reevaluation, patient is resting comfortably. His Covid test did come back negative. His main concern was heart racing that occurred earlier today. His heart rate has been in the 50s and 60s in the ED. He states they want his heart rate in the 50s or lower due to his medical history. He has had no elevated heart rate while in the emergency department. Will obtain delta troponin. If this is negative patient will be discharged to follow-up with his primary care physician. He is in agreement with this plan. Disposition: Pending Impression: Palpitations This note was generated with [facility] dictation software. It may contain incorrect words, spelling, and punctuation that were not noted in review of the chart prior to signing ED Disposition - Plan for ED Patient: Referrals: Nguyễn Stark Chi, MD [Primary Care Provider] -
[2020-02-05 20:50] VITALS: BP 159/79; PULSE 60; RESP 12; TEMP 36.3; O2SAT 100
[2020-02-05] MEDS: Ondansetron 4 MG/2 ML Vial IV (20:50)
[2020-02-05 21:05] LABS: Absolute Lymphocyte Count 1.15 X10^3/uL (0.83-4.51); Absolute Neutrophil Count 4.2 X10^3/uL (2.0-7.7); Basophil# 0.03 X10^3/uL; Basophil% 0.5 % (0-1); Eosinophil# 0.07 X10^3/uL; Eosinophils% 1.2 % (0-5); Hematocrit 42.7 % (40-54); Hemoglobin 14.2 g/dL (13.0-16.5); Lymphocyte # 1.15 X10^3/ul (4.0); Mean Corp Hgb Conc 33.3 g/dL (32-36); Mean Corpuscular Hgb 29.1 pg (27.0-32.0); Mean Corpuscular Volume 87.5 fL (80-94); Mean Platelet Vol. 10.7 fl (6.2-12.0); Monocyte# 0.35 X10^3/uL; Monocyte% 6.1 % (0-10); NRBC Flagged by Analyzer 0 % (0-5); Neutrophil # 4.15 X10^3/uL (2.7-7.7); Platelet Count 228 K/mm3 (150-450); RBC Distribution Width CV 12.6 % (11.6-14.6); RBC Distribution Width SD 40.2 fl (35.1-43.9); Red Blood Count 4.88 M/mm3 (4.6-6.2); White Blood Count 5.8 K/mm3 (4.4-11.0)
[2020-02-05 21:33] LABS: Anion Gap 5 (5-15); BUN 13 mg/dL (7-18); Calcium,Total 8.7 mg/dL (8.5-10.1); Chloride 113 mmol/L (98-107); EST Glomerular Filtration Rate 86 mL/min (>60); Est Glom Filt Rate - Afr Amer 104 mL/min (>60); Estimated Creatinine Clearance 84.18 ml/min; Glucose 115 mg/dL (74-106); Potassium 3.9 mmol/L (3.5-5.1); Sodium Level 143 mmol/L (136-145)
--- NOTE | 2020-02-05 21:46 | CT_ITS ---
STUDY: CTA CHEST REASON FOR EXAM: Male, 44 years old. SOB/HEART RACING. Hx of thoracoabdominal aortic dissection repair and carotid stent placement 2013. RADIATION DOSAGE (If Supplied By Facility): CTDIvol = ( 9.26 ) mGy, DLP = ( 342.24 ) mGycm TECHNIQUE: The examination was performed with the intravenous administration of IV 75mL Isovue-370. Post-processing of the angiographic images was performed, with multiplanar reformation and 3D reconstruction. Individualized dose optimization techniques were used for this CT. COMPARISON: CTA chest 01/02/2018 FINDINGS: Prosthetic aortic heart valve. Sternotomy wires. Normal enhancement of the main pulmonary artery and right and left pulmonary arteries. Normal enhancement of the bilateral peripheral pulmonary arteries. There is no demonstrated pulmonary embolism. Normal thoracic aorta and visualized great vessels. New Endovascular stent extends from the aortic arch into the descending thoracic aorta true lumen. There is a dissecting thoracic aneurysm extending from the arch to the abdominal aorta and into the left common and left subclavian arteries. Stents are noted within the left carotid and subclavian arteries and appear patent. The thoracic aneurysm measures up to 38 x 42 mm. Normal heart and pericardium. No pericardial effusion or mediastinal hematoma. Normal mediastinum. Normal hilar regions. Normal visualized trachea and bronchi. The lungs are well expanded. Normal pulmonary parenchyma. Normal pleura. Sternotomy wires noted. Normal osseous structures. Normal visualized upper abdomen. CT/CTA Chest W/WO Contrast IMPRESSION: New endovascular stent in the aortic arch and descending thoracic aorta. Stable dissecting thoracic aneurysm as above. Electronically Signed: Kevin Way MD at 22:53 EDT , Service support ,
[2020-02-05 22:33] VITALS: BP 131/65; PULSE 49; RESP 16; TEMP 36.6; O2SAT 97
--- NOTE | 2020-02-06 00:19 | ED.DEP ---
ED Disposition - Plan for ED Patient: Instructions: ED Palpitations Referrals: Nguyễn Stark Chi, MD [Primary Care Provider] -
[2020-02-06 00:51] VITALS: BP 133/62; PULSE 50; RESP 19; O2SAT 97
== END 2020-02-06 00:52 | disposition home or self-care (01) ==
LOC: ED 21:01
PROVIDERS: Emergency Provider Emergency Medicine; PCP Family Medicine Geriatric Medicine
DX: R00.2 Palpitations (principal); K21.9 Gastro-esophageal reflux disease without esophagitis; E78.00 Pure hypercholesterolemia, unspecified; Z79.82 Long term (current) use of aspirin
CPT/HCPCS: 71275; 80048; 84484; 85025; 93005; 96374; 99282; Q9967; A4216; J2405

== ENCOUNTER → 2020-02-08 16:49 | Outpatient (CLI) | payer MEDICARE, MEDICAID, SELFPAY ==
[2020-02-05 20:25] VITALS: BMI 25.4
--- NOTE | 2020-02-08 17:00 | RAD_ITS ---
HISTORY: DIARRHEA X 1 WEEK ADDITIONAL HISTORY: None. COMPARISON: None EXAMINATION/TECHNIQUE: XR Abdomen W/ Decub and/or Erect Views Number of images including paperwork: 3 FINDINGS: FREE AIR: None detected. BOWEL GAS PATTERN: Nonobstructive. Small to moderate amount of colonic stool. CALCIFICATIONS: No definite urinary tract calculi. ORGANS: No evidence of organomegaly. SOFT TISSUES: Unremarkable. BONES: No acute skeletal findings. LOWER CHEST: Unremarkable visible portions. DEVICES: Sternal wires, valvular prosthesis and aortic stent grafts partially visible RAD/Abd Inc Decub and/or Erect IMPRESSION: No acute abdominal abnormality is radiographically apparent. at 2332 Reported and signed by: Rita Wade MD Electronically Signed: Rita Wade MD at 23:32 EDT Tel , Service support ,
== END ==
PROVIDERS: PCP Family Medicine Geriatric Medicine; Referring Provider Family Medicine Geriatric Medicine; Visit Provider Family Medicine Geriatric Medicine
DX: R19.7 Diarrhea, unspecified (principal)
CPT/HCPCS: 74019; 82274; 83630; 87177; 87209; 87493; 87506

== ENCOUNTER → 2020-05-16 13:08 | Outpatient (CLI) | payer MEDICARE, MEDICAID, SELFPAY ==
[2020-05-16 15:19] LABS: Absolute Lymphocyte Count 1.24 X10^3/uL (0.83-4.51); Absolute Neutrophil Count 3.8 X10^3/uL (2.0-7.7); Basophil# 0.02 X10^3/uL; Basophil% 0.4 % (0-1); Eosinophil# 0.05 X10^3/uL; Eosinophils% 0.9 % (0-5); Hematocrit 46.6 % (40-54); Hemoglobin 15.7 g/dL (13.0-16.5); Lymphocyte # 1.24 X10^3/ul (4.0); Lymphocyte % 22.4 % (19-41); Mean Corp Hgb Conc 33.7 g/dL (32-36); Mean Corpuscular Hgb 29.5 pg (27.0-32.0); Mean Corpuscular Volume 87.6 fL (80-94); Mean Platelet Vol. 11.2 fl (6.2-12.0); Monocyte% 7.2 % (0-10); NRBC Flagged by Analyzer 0 % (0-5); Neutrophil # 3.81 X10^3/uL (2.7-7.7); Neutrophil % 68.7 % (47-70); Platelet Count 239 K/mm3 (150-450); RBC Distribution Width CV 12.1 % (11.6-14.6); RBC Distribution Width SD 38.8 fl (35.1-43.9); Red Blood Count 5.32 M/mm3 (4.6-6.2); White Blood Count 5.5 K/mm3 (4.4-11.0)
[2020-05-16 15:42] LABS: ALB/GLOB Ratio 1.3 RATIO (0.9-2.4); AST(SGOT) 13 U/L (15-37); Alanine Aminotransfer ALT/SGPT 18 U/L (16-61); Albumin, Serum 3.9 g/dL (3.2-5.0); Alkaline Phosphatase 81 U/L (45-117); Anion Gap 7 (5-15); BUN 12 mg/dL (7-18); BUN/Creat Ratio 11.3 RATIO (10-20); Chloride 107 mmol/L (98-107); Creatinine, Serum 1.06 mg/dL (0.70-1.30); EST Glomerular Filtration Rate 80 mL/min (>60); Est Glom Filt Rate - Afr Amer 97 mL/min (>60); Glucose 97 mg/dL (74-106); Potassium 4.3 mmol/L (3.5-5.1); Protein, Total 6.9 g/dL (6.4-8.2); Sodium Level 141 mmol/L (136-145)
== END ==
PROVIDERS: PCP Family Medicine Geriatric Medicine; Visit Provider Family Medicine Geriatric Medicine
DX: F52.8 Other sexual dysfunction not due to a substance or known physiological condition (principal); I10 Essential (primary) hypertension
CPT/HCPCS: 36415; 80053; 84403; 84443; 85025

== ENCOUNTER → 2020-05-24 16:08 | Outpatient (CLI) | payer MEDICARE, MEDICAID, SELFPAY | PROVIDERS: PCP Family Medicine Geriatric Medicine; Referring Provider Family Medicine Geriatric Medicine; Visit Provider Family Medicine Geriatric Medicine | DX: R68.83 Chills (without fever) (principal) | CPT/HCPCS: 87635; C9803; U0005; U0003 ==

== ENCOUNTER → 2020-05-29 13:52 | Outpatient (CLI) | payer MEDICARE, MEDICAID, SELFPAY ==
--- NOTE | 2020-05-29 13:56 | CT_ITS ---
STUDY: CT ABDOMEN AND PELVIS WITH CONTRAST REASON FOR EXAM: Male, 44 years old. ABD PAIN, HX AAA RADIATION DOSAGE (If Supplied By Facility): CTDIvol = ( 7.5 ) mGy, DLP = ( 433.87 ) mGycm TECHNIQUE: Transaxial images were obtained from the dome of the diaphragm to the symphysis pubis with oral contrast. IV 100mL Isovue-370 was administered. Sagittal and coronal images were reconstructed. Individualized dose optimization techniques were used for this CT. COMPARISON: 05/16/2017 FINDINGS: The visualized lung bases are unremarkable. Previous CABG There is fatty infiltration of the liver with scattered stable simple hepatic cysts. No suspicious enhancing lesion. Normal gallbladder and extrahepatic biliary system. Normal spleen. Normal pancreas. Normal bilateral adrenal glands. Normal right kidney. Normal left kidney. Normal visualized stomach. Normal small intestine. Retained stool noted in the colon with scattered colonic diverticulosis. There is submucosal thickening in the sigmoid colon without significant pericolonic inflammatory stranding this can be seen with diverticulitis but also underlying mass lesion needs to be excluded. No perforation or abscess. There is non-visualization of the appendix. Stable aortic dissection noted in the lower thoracic aorta. The dissection extends through the entirety of the abdominal aorta and into the right common iliac artery Normal inferior vena cava. Normal retroperitoneum. Normal urinary bladder. Normal abdominal wall. Normal osseous structures. CT/Abdomen/Pelvis WITH Contrast IMPRESSION: Retained stool noted in the majority of the colon with scattered colonic diverticulosis also noted. There is some mucosal thickening in the mid sigmoid colon. There is no significant pericolonic inflammatory stranding, evidence of perforation or abscess but this thickening is suggestive of acute diverticulitis. An underlying mass lesion should be excluded as there is some caliber change in the lumen of the sigmoid. No aneurysmal dilatation of the aorta but there is dissection extending from the visualized thoracic aorta through the abdominal aorta and into the right common iliac artery. There is no evidence of leak Fatty liver with stable scattered simple cysts, no specific follow-up needed No free peritoneal fluid, air, or suspicious adenopathy Electronically Signed: Cornelio Thorpe MD at 17:04 EST , Service support ,
[2020-05-29 17:17] LABS: Absolute Lymphocyte Count 1.37 X10^3/uL (0.83-4.51); Absolute Neutrophil Count 4.6 X10^3/uL (2.0-7.7); Basophil# 0.02 X10^3/uL; Basophil% 0.3 % (0-1); Eosinophil# 0.02 X10^3/uL; Eosinophils% 0.3 % (0-5); Hematocrit 44.2 % (40-54); Hemoglobin 15.1 g/dL (13.0-16.5); Lymphocyte # 1.37 X10^3/ul (4.0); Lymphocyte % 21.2 % (19-41); Mean Corp Hgb Conc 34.2 g/dL (32-36); Mean Corpuscular Hgb 29.5 pg (27.0-32.0); Mean Corpuscular Volume 86.3 fL (80-94); Monocyte% 6.2 % (0-10); NRBC Flagged by Analyzer 0 % (0-5); Neutrophil # 4.64 X10^3/uL (2.7-7.7); Neutrophil % 71.7 % (47-70); Platelet Count 220 K/mm3 (150-450); RBC Distribution Width CV 11.7 % (11.6-14.6); RBC Distribution Width SD 37.1 fl (35.1-43.9); Red Blood Count 5.12 M/mm3 (4.6-6.2); White Blood Count 6.5 K/mm3 (4.4-11.0)
[2020-05-29 17:54] LABS: ALB/GLOB Ratio 1.3 RATIO (0.9-2.4); AST(SGOT) 13 U/L (15-37); Alanine Aminotransfer ALT/SGPT 15 U/L (16-61); Albumin, Serum 3.8 g/dL (3.2-5.0); Alkaline Phosphatase 75 U/L (45-117); Anion Gap 6 (5-15); BUN 10 mg/dL (7-18); BUN/Creat Ratio 10.7 RATIO (10-20); Calcium,Total 8.4 mg/dL (8.5-10.1); Chloride 106 mmol/L (98-107); Creatinine, Serum 0.94 mg/dL (0.70-1.30); EST Glomerular Filtration Rate 93 mL/min (>60); Est Glom Filt Rate - Afr Amer 112 mL/min (>60); Globulin 2.9 g/dL (2.2-4.2); Glucose 76 mg/dL (74-106); Potassium 3.5 mmol/L (3.5-5.1); Protein, Total 6.7 g/dL (6.4-8.2); Sodium Level 138 mmol/L (136-145)
== END ==
PROVIDERS: PCP Family Medicine Geriatric Medicine; Visit Provider Family Medicine Geriatric Medicine
DX: R19.7 Diarrhea, unspecified (principal); R10.9 Unspecified abdominal pain
CPT/HCPCS: 36415; 74177; 80053; 82274; 83630; 85025; 87177; 87209; 87506; Q9967

== ENCOUNTER → 2020-06-07 08:50 | Outpatient (CLI) | payer MEDICARE, MEDICAID, SELFPAY ==
[2020-06-02 14:24] VITALS: BMI 22.6
--- NOTE | 2020-06-07 08:55 | US_ITS ---
STUDY: ABDOMINAL ULTRASOUND - RIGHT UPPER QUADRANT REASON FOR VISIT: Male, 44 years old STEATOSIS OF LIVER TECHNIQUE: Ultrasound evaluation of the right upper quadrant was performed with real-time and static lou-scale imaging. TECHNICAL QUALITY: Adequate. COMPARISON: Comparison is made with prior CT scan of the abdomen dated 05/29/2020. FINDINGS: Liver: The liver measures 13.1 cm. There is mild increased echogenicity consistent with mild degree of fatty infiltration. The bile ducts are within normal limits. There is hepatic color flow. The direction of portal flow is hepatopetal. There is no demonstrated mass lesion. Gallbladder: Normal distended gallbladder. The gallbladder wall measures 4.0 mm. There is a negative sonographic Pelayo''s sign. There is no pericholecystic fluid. There are no gallstones. Common Bile Duct (C.B.D.): The common bile duct measures 2.0 mm. Pancreas: Normal size of the head, body and tail of the pancreas. There is normal echogenicity of the pancreas. There is no demonstrated pancreatic mass or cyst. Right Kidney: Normal size of the right kidney. The right kidney measures 9.4 cm x 4.8 cm x 4.5 cm. Normal renal cortex. The right cortex measures 1.5 cm. There is no demonstrated renal mass or cyst. There is no right hydronephrosis. IMPRESSION: Mild degree of fatty infiltration of the liver. Electronically Signed: Simon Loera MD at 11:00 EST , Service support , STUDY: ABDOMINAL ULTRASOUND - ELASTOGRAPHY REASON FOR VISIT: Male, 44 years old. Fatty infiltration of the liver. TECHNIQUE: Liver stiffness measurements were obtained on a [employer] 85 ultrasound machine using a CA 1-7 probe following the SRU guidelines. 3 measurements were obtained using a 2-D-SWE method. The IQR/M was 11% suggesting a quality data set. TECHNICAL QUALITY: Adequate. COMPARISON: Comparison is made with prior ultrasound of the abdomen done earlier today. FINDINGS: Liver: Is evidence of fatty infiltration of the liver. Median liver stiffness measured 5.4 kPa. US/Abdomen Limited IMPRESSION: Liver stiffness measures 5.4 kPa compatible with F1 Metavir score. Electronically Signed: Simon Loera MD at 12:13 EST , Service support ,
--- NOTE | 2020-06-07 08:55 | US_ITS ---
STUDY: ABDOMINAL ULTRASOUND - RIGHT UPPER QUADRANT REASON FOR VISIT: Male, 44 years old STEATOSIS OF LIVER TECHNIQUE: Ultrasound evaluation of the right upper quadrant was performed with real-time and static lou-scale imaging. TECHNICAL QUALITY: Adequate. COMPARISON: Comparison is made with prior CT scan of the abdomen dated 05/29/2020. FINDINGS: Liver: The liver measures 13.1 cm. There is mild increased echogenicity consistent with mild degree of fatty infiltration. The bile ducts are within normal limits. There is hepatic color flow. The direction of portal flow is hepatopetal. There is no demonstrated mass lesion. Gallbladder: Normal distended gallbladder. The gallbladder wall measures 4.0 mm. There is a negative sonographic Pelayo''s sign. There is no pericholecystic fluid. There are no gallstones. Common Bile Duct (C.B.D.): The common bile duct measures 2.0 mm. Pancreas: Normal size of the head, body and tail of the pancreas. There is normal echogenicity of the pancreas. There is no demonstrated pancreatic mass or cyst. Right Kidney: Normal size of the right kidney. The right kidney measures 9.4 cm x 4.8 cm x 4.5 cm. Normal renal cortex. The right cortex measures 1.5 cm. There is no demonstrated renal mass or cyst. There is no right hydronephrosis. IMPRESSION: Mild degree of fatty infiltration of the liver. Electronically Signed: Simon Loera MD at 11:00 EST , Service support , STUDY: ABDOMINAL ULTRASOUND - ELASTOGRAPHY REASON FOR VISIT: Male, 44 years old. Fatty infiltration of the liver. TECHNIQUE: Liver stiffness measurements were obtained on a [employer] 85 ultrasound machine using a CA 1-7 probe following the SRU guidelines. 3 measurements were obtained using a 2-D-SWE method. The IQR/M was 11% suggesting a quality data set. TECHNICAL QUALITY: Adequate. COMPARISON: Comparison is made with prior ultrasound of the abdomen done earlier today. FINDINGS: Liver: Is evidence of fatty infiltration of the liver. Median liver stiffness measured 5.4 kPa. US/Elastography Parenchyma/Organ IMPRESSION: Liver stiffness measures 5.4 kPa compatible with F1 Metavir score. Electronically Signed: Simon Loera MD at 12:13 EST , Service support ,
== END ==
PROVIDERS: PCP Family Medicine Geriatric Medicine; Referring Provider Family Medicine Geriatric Medicine; Visit Provider Family Medicine Geriatric Medicine
DX: K76.0 Fatty (change of) liver, not elsewhere classified (principal)
CPT/HCPCS: 76705; 76981

== ENCOUNTER 2020-06-07 15:16 | Emergency (ER) | payer MEDICARE, MEDICAID, SELFPAY ==
[2020-06-02 14:24] VITALS: BMI 22.6
[2020-06-07 15:16] VITALS: BP 143/73; PULSE 63; RESP 18; TEMP 36.4; O2SAT 98; BMI 22.6
--- NOTE | 2020-06-07 15:35 | EKG12_ITS ---
Test Reason : CP Blood Pressure : / mmHG Vent. Rate : 058 BPM Atrial Rate : 058 BPM P-R Int : 146 ms QRS Dur : 084 ms QT Int : 394 ms P-R-T Axes : 037 096 003 degrees QTc Int : 386 ms Sinus bradycardia Rightward axis Borderline ECG Confirmed by DANNI MCCOLLUM, GRETA ([id number]), industrial editor NABEEL STALEY ([id number]) on 06/12/2020 9:38:16 AM Referred By: CAMILLE Confirmed By:MERVAT RAZO MD
--- NOTE | 2020-06-07 15:40 | RAD_ITS ---
STUDY: X-RAY CHEST REASON FOR EXAM: Male, 44 years old. Chest pain TECHNIQUE: Single AP portable view of the chest. COMPARISON: Comparison is made with prior study dated 01/02/2018. FINDINGS: Surgical clips are seen in the right axillary region. The lungs are clear and expanded. There is no demonstrated pleural abnormality. Sternal cerclage wires are present from a prior sternotomy. The patient is status post aortic valve replacement. Aortic stenting is seen in the region of the aortic arch. Normal mediastinum and antony. Normal visualized pulmonary arteries. Normal visualized aortic arch and descending thoracic aorta. Normal visualized thoracic spine. Normal visualized ribs, clavicles, and shoulders. There is no demonstrated abnormality of the visualized soft tissue structures of the upper abdomen. RAD/Chest 1 View (Portable) IMPRESSION: No acute abnormality is seen. Electronically Signed: iSmon Loera MD at 15:55 EST , Service support ,
--- NOTE | 2020-06-07 16:19 | ED.DCSUM_ITS ---
History of Present Illness Chief Complaint: Chest Pain Informant: Patient Narrative: 44-year-old male presenting with with a sensation of itching in the left side of his chest. Patient states that he had aortic dissection in 2014 which originally was repaired however he had to have a revision in 2018 at [facility] and he also had a bovine ordered valve repair. Patient states that his dissection was due to an abnormal valve. Patient states that after his surgical repair he did have a stroke as well as a seizure disorder which has resolved. He is not on any seizure medications anymore. Patient also states that he had atrial fibrillation for short time after his surgical repair however this is resolved and he is not on any oral anticoagulation except for aspirin and Plavix chronically. Patient states today he felt lightheaded while on a ladder. Patient does not have history of GA. Past Medical History - Allergies and Home Meds Allergies/Adverse Reactions: Allergies oxycodone [From Percocet] Allergy (Verified 06/07/20 15:18) Shortness of breath atorvastatin Adverse Reaction (Severe, Verified 06/07/20 15:18) Dizziness citalopram [From Celexa] Adverse Reaction (Verified 06/07/20 15:18) erectile dysfunction Primary Care Physician: Nguyễn Stark Chi, MD [Primary Care Provider] - Prior records reviewed: Yes Past Medical History: - - Hypertension, hyperlipidemia, seizures resolved, aortic dissection Surgical History: - - Aortic dissection repair, aortic dissection revision with bovine valve replacement Smoking Status: Former smoker Alcohol: None Drugs: None Review of Systems General: Denies: Chills, Fever, Sweats Eyes: Denies: Visual changes - bilaterally, Diplopia ENT: Denies: Rhinorrhea, Sore throat Cardiovascular: Reports: Chest pain, Heart racing Respiratory: Denies: Dyspnea, Cough Gastrointestinal: Denies: Abdominal pain, Nausea, Vomiting Genitourinary: Denies: Dysuria, Hematuria Musculoskeletal: Denies: Myalgias, Arthralgias Skin: Denies: Rash, Abscess Neurological: Reports: - - Lightheadedness. Denies: Headache, Parasthesia Psych: Denies: Depression, Anxiety Endocrine: Denies: Polyuria, Polydipsia Physical Exam Vital Signs/Narrative: Vital Signs Temp Pulse Resp BP Pulse Ox 06/07/20 15:16 97.5 F L 63 18 143/73 H 98 Inital Vital Signs reviewed: Yes General: Well nourished, No Acute Distress Head: Normocephalic, Atraumatic Eyes: Perrl, EOMI ENT: Moist mucous membranes, No rhinorrhea Cardiovascular: Regular rate, Regular rhythm Respiratory: No distress, CTA bilaterally Abdomen: Soft, Nontender Extremities: Nontender, No edema Skin: Normal color, No rash. Negative for: Cyanosis, Diaphoresis Neurological: Alert, Oriented x3, Cranial nerves II-XII grossly intact Psychological: Normal affect, Normal Mood Diagnostic/Tx/Re-eval Clinical Impression(s) from Imaging Studies Chest X-Ray 06/07/20 15:40 IMPRESSION: No acute abnormality is seen. Electronically Signed: Simon Loera MD at 15:55 EST , Service support , Abdomen CTA 06/07/20 16:28 IMPRESSION: 1. Stable abdominal aortic dissection which appears unchanged from the earlier study of 05/29/2020. 2. Question sigmoid diverticulitis. 3. No other interval change. Electronically Signed: Zeeshan Oneal DO at 17:49 EST Tel [phone], Service support , Chest CTA 06/07/20 16:28 IMPRESSION: 1. Stable abdominal aortic dissection which appears unchanged from the earlier study of 05/29/2020. 2. Question sigmoid diverticulitis. 3. No other interval change. Electronically Signed: Zeeshan Oneal DO at 17:49 EST Tel [phone], Service support , Laboratory Data 06/07/20 06/07/20 16:00 16:00 WBC 7.2 RBC 5.43 Hgb 15.9 Hct 47.5 MCV 87.5 MCH 29.3 MCHC 33.5 RDW Std Deviation 38.5 RDW Coeff of Cheri 12.0 Plt Count 267 MPV 10.8 Immature Gran % (Auto) 0.300 Neut % (Auto) 75.9 H Lymph % (Auto) 16.9 L Mccurtain % (Auto) 5.9 Eos % (Auto) 0.6 Baso % (Auto) 0.4 Absolute Neuts (auto) 5.5 Absolute Lymphs (auto) 1.21 Nucleated RBC % 0 Sodium 141 Potassium 4.0 Chloride 108 H Carbon Dioxide 28.0 Anion Gap 5 BUN 14 Creatinine 0.99 Estim Creat Clear Calc 84.64 Est GFR (MDRD) Af Amer 105 Est GFR (MDRD) Non-Af 86 BUN/Creatinine Ratio 14.1 Glucose 97 Calcium 9.1 Troponin I < 0.015 - EKG Initial EKG Interpretation: No Acute Injury Pattern, Sinus Bradycardia - Medical Decision Making 44-year-old male presenting for discomfort in his chest which he describes as itching. Patient had EKG which showed a sinus bradycardia at 58 bpm without sig ns of ischemic changes. Patient was concerned about his aortic graft so I did perform CTA chest abdomen pelvis which was negative for acute findings. Patient lab work is normal. Negative troponin. Given that his chest pain does not sound cardiac as he describes it as itching and he has a negative CTA I believe he is safe to be discharged home without further testing. Impression: 1. Atypical chest ED Disposition - Plan for ED Patient: Disposition: Home or Assisted Living Instructions: ED Chest Pain, Uncertain Cause Referrals: Nguyễn Stark Chi, MD [Primary Care Provider] -
[2020-06-07 16:27] LABS: Absolute Lymphocyte Count 1.21 X10^3/uL (0.83-4.51); Absolute Neutrophil Count 5.5 X10^3/uL (2.0-7.7); Basophil# 0.03 X10^3/uL; Basophil% 0.4 % (0-1); Eosinophil# 0.04 X10^3/uL; Eosinophils% 0.6 % (0-5); Hematocrit 47.5 % (40-54); Hemoglobin 15.9 g/dL (13.0-16.5); Lymphocyte # 1.21 X10^3/ul (4.0); Lymphocyte % 16.9 % (19-41); Mean Corp Hgb Conc 33.5 g/dL (32-36); Mean Corpuscular Hgb 29.3 pg (27.0-32.0); Mean Corpuscular Volume 87.5 fL (80-94); Mean Platelet Vol. 10.8 fl (6.2-12.0); Monocyte# 0.42 X10^3/uL; Monocyte% 5.9 % (0-10); NRBC Flagged by Analyzer 0 % (0-5); Neutrophil # 5.45 X10^3/uL (2.7-7.7); Neutrophil % 75.9 % (47-70); Platelet Count 267 K/mm3 (150-450); RBC Distribution Width SD 38.5 fl (35.1-43.9); Red Blood Count 5.43 M/mm3 (4.6-6.2); White Blood Count 7.2 K/mm3 (4.4-11.0)
--- NOTE | 2020-06-07 16:28 | CT_ITS ---
STUDY: CTA CHEST REASON FOR EXAM: Male, 44 years old. Chest pain. History of dissection. RADIATION DOSAGE (If Supplied By Facility): CTDIvol = ( 8.98 ) mGy, DLP = ( 405.20 ) mGycm TECHNIQUE: The examination was performed with the intravenous administration of IV 100mL Isovue-370. Post-processing of the angiographic images was performed, with multiplanar reformation and 3D reconstruction. Individualized dose optimization techniques were used for this CT. COMPARISON: CTA of the chest, 02/05/2020. FINDINGS: Normal enhancement of the main pulmonary artery and right and left pulmonary arteries. Normal enhancement of the bilateral peripheral pulmonary arteries. There is no demonstrated pulmonary embolism. There is a stent within the thoracic aortic arch unchanged from previous study. Posteriorly this extends into the true lumen. There is evidence of stents at the origins of the left common carotid head and left subclavian arteries. These lie within the true lumen. The false lumen appears to extend upward into the visualized portions of the common carotid artery and outward into the proximal left subclavian artery. This appears unchanged. The smaller true lumen lies anterior to the left of center. There is partial thrombosis of the false lumen unchanged from the previous examination. Again seen is mild distention of the descending thoracic aorta which measures 3.7 cm in diameter. This appears essentially unchanged from prior exam. Normal heart and pericardium. There is aortic valve replacement. Normal mediastinum. Question small calcification in the region of the azygos vein. Normal hilar regions. Normal visualized trachea and bronchi. The lungs are well expanded. Normal pulmonary parenchyma. Normal pleura. Normal chest wall structures. There is evidence of median sternotomy. Normal osseous structures. The aortic dissection extends into the abdominal aorta. Mild fatty infiltration of liver. IMPRESSION: Stable findings when compared to a CTA of the chest dated 02/05/2020. Electronically Signed: Zeeshan Oneal DO at 17:44 EST Tel [phone], Service support , STUDY: CTA OF THE ABDOMINAL AORTA REASON FOR EXAM: Male, 44 years old. History of aortic dissection. Chest pain. TECHNIQUE: Axial CT angiography multi-detector data acquisition was obtained from the diaphragm to the ischial tuberosities following intravenous administration of . Axial images and MIP images were reconstructed from the axial data set. Post-processing of the angiographic images was performed, with multiplanar reformation and 3D reconstruction. Individualized dose optimization techniques were used for this CT. TECHNICAL QUALITY: Good COMPARISON: CTA of the chest, 06/07/2020. CT of the abdomen and pelvis, 05/29/2020. Descriptors of Narrowing: None (0%) Mild (< 50%) Moderate (50-70%) Severe (70-90%) Subtotal/Total Occlusion (90-100%) Non-Evaluable (technically non-diagnostic FINDINGS: Abdominal aorta: There is an abdominal aortic dissection extending downward from the thoracic aorta. The true lumen lies anteriorly and to the left of center. Avulsed larger false lumen lies to the right and posterior. In the inferior aorta true lumen lies to the left of center with the false lumen to the right. Celiac and superior mesenteric arteries: No demonstrated narrowing. Both arise from the true lumen. Inferior mesenteric artery: No demonstrated narrowing. Arises from the true lumen. Right renal artery(arteries): No demonstrated narrowing. Arises from the false lumen. Left renal artery(arteries): No demonstrated narrowing. Arises from the true lumen. Right common iliac artery: Dissection extends into the mid right common iliac artery. Distal artery is supplied by the true lumen. Right external iliac artery: No demonstrated narrowing. Right internal iliac artery: No demonstrated narrowing. Left common iliac artery: No demonstrated narrowing. Left external iliac artery: No demonstrated narrowing. Left internal iliac artery: No demonstrated narrowing. There is is mild wall thickening and diverticular changes of the distal descending and sigmoid colon. Question mild diverticulitis. There is no other major anatomic change in findings when compared to the 05/29/[address]/CTA Abdomen W/WO Contrast IMPRESSION: 1. Stable abdominal aortic dissection which appears unchanged from the earlier study of 05/29/2020. 2. Question sigmoid diverticulitis. 3. No other interval change. Electronically Signed: Zeeshan Oneal DO at 17:49 EST Tel [phone], Service support ,
[2020-06-07 16:39] LABS: Anion Gap 5 (5-15); BUN 14 mg/dL (7-18); BUN/Creat Ratio 14.1 RATIO (10-20); Calcium,Total 9.1 mg/dL (8.5-10.1); Chloride 108 mmol/L (98-107); Creatinine, Serum 0.99 mg/dL (0.70-1.30); EST Glomerular Filtration Rate 86 mL/min (>60); Est Glom Filt Rate - Afr Amer 105 mL/min (>60); Estimated Creatinine Clearance 84.64 ml/min; Glucose 97 mg/dL (74-106); Sodium Level 141 mmol/L (136-145)
[2020-06-07 17:29] VITALS: BP 135/69; PULSE 54; RESP 17; O2SAT 100
[2020-06-07 19:29] VITALS: BP 126/68; PULSE 53; RESP 19; O2SAT 99
[2020-06-07 20:31] VITALS: BP 121/78; PULSE 59; RESP 16; O2SAT 98
== END 2020-06-07 20:31 | disposition home or self-care (01) ==
PROVIDERS: Emergency Provider Student in an Organized Health Care Education/Training Program; PCP Family Medicine Geriatric Medicine
DX: R07.9 Chest pain, unspecified (principal); K76.0 Fatty (change of) liver, not elsewhere classified; Z95.2 Presence of prosthetic heart valve; Z87.891 Personal history of nicotine dependence; Z86.73 Personal history of transient ischemic attack (TIA), and cerebral infarction without residual deficits; Z79.02 Long term (current) use of antithrombotics/antiplatelets
CPT/HCPCS: 71045; 71275; 74175; 76705; 76981; 80048; 84484; 85025; 93005; 99284; Q9967; A4216

== ENCOUNTER 2020-06-21 08:22 | Day surgery (SDC) | payer MEDICARE, MEDICAID, SELFPAY ==
[2020-06-02 14:24] VITALS: BMI 22.6
[2020-06-21 08:43] VITALS: BP 155/83; PULSE 60; RESP 16; TEMP 36.6; O2SAT 100; BMI 24.1
[2020-06-21] MEDS: Lactated Ringers 1,000 ML 100 ML IV (08:48)
--- NOTE | 2020-06-21 08:58 | HP.PCM_ITS ---
History and Physical Date of Admission: 06/21/20 Date of Service: 06/02/20 MR#: [id number] Acct: [id number] Name: BECK WANG Rep #: [id number] : 1975 Provider: Dr. Jeanine Randle MD Age/Sex: 44/M Location: [facility] Status: Signed Intake Vital Signs 06/02/20 Height 5 ft 6 in 06/02/20 Weight: 140 lb 06/02/20 BMI 22.6 06/02/20 BP 157/80 H 06/02/20 Blood Pressure Location Rt brachial 06/02/20 Position Sitting 06/02/20 Respiration 16 06/02/20 Pulse 54 L 06/02/20 Pulse Source Monitor 06/02/20 Temp 97.7 F L 06/02/20 Temp Source Temporal 06/02/20 Pulse Oximetry (%) 100 06/02/20 Oxygen Delivery Method room air Intake Visit Reasons: CSCOPE Chief Complaint: follow-up visit Is patient in pain?: No Allergies oxycodone [From Percocet] Allergy (Verified 06/02/20 14:25) Shortness of breath atorvastatin Adverse Reaction (Severe, Verified 06/02/20 14:25) Dizziness citalopram [From Celexa] Adverse Reaction (Verified 06/02/20 14:25) erectile dysfunction Medications Aspirin [Aspirin, Baby] 81 mg PO DAILY 12/30/15 [History Confirmed 06/02/20] Clopidogrel Bisulfate [Plavix] 75 mg PO DAILY 10/26/16 [History Confirmed 06/02/20] Multivitamin with Iron [Multivitamins with Iron] 1 ea PO DAILY 01/02/18 [History Confirmed 06/02/20] simvastatin 20 mg tablet 20 mg PO QPM #30 tab 05/22/18 [Rx Confirmed 06/02/20] Metoprolol Succinate [Toprol Xl] 12.5 mg PO BID 02/05/20 [History Confirmed 06/02/20] Omeprazole 20 mg PO DAILY 02/05/20 [History Confirmed 06/02/20] [facility] Medical History (Updated 06/02/20 @ 14:21 by Li Jones) Constipation (Acute) Diarrhea (Acute) Nausea & vomiting (Acute) Abdominal pain (Acute) Heart murmur (Acute) Afib (Acute) Thoracoabdominal aortic dissection (Resolved) History of carotid artery dissection (Resolved) Bicuspid aortic valve (Chronic) CVA (cerebral vascular accident) (Chronic) Hyperlipidemia (Chronic) Surgical History (Updated 06/02/20 @ 14:21 by Li Jones) History of bilateral carotid endarterectomy (Acute) History of vasectomy (Resolved) History of appendectomy (Resolved) Hx of myringotomy (Resolved) History of aortic valve replacement (Resolved 06/04/18) History of thoracic aortic aneurysm repair (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 Dinorah Randle MD) Smoking Status: Former smoker alcohol intake: never substance use type: does not use caffeine: No what type of physical activity do you participate in: walking frequency: daily duration: < 15 minutes/day seatbelt use: always do you feel safe at home: Yes HPI HPI HPI: BECK WANG, is a 44 M who presents to the office today for HPI HPI Surgical H&P: Yes HPI: BECK WANG, is a 44 M who presents to the office today for abnormal CT scan of the abdomen as well as abdominal pain/diarrhea. Patient states a [facility] PCP Dr. Stark on 05/[address] abdomen pelvis as well as stool studies. Patient states he was having lower abdominal pain for about a week and a half and also had diarrhea for the last 5 to 10 days. Patient states he had a CT abdomen pelvis done which did question if there could be some mid sigmoid mucosal thickening however no signs of inflammation were seen. And patient did also take magnesium citrate when he got home. Patient states his abdominal pain was improved as well as his diarrhea after the magnesium citrate was completed. Patient states he is currently having bowel movements daily and was also prior to that. Currently they are softer not diarrhea and no blood. Patient states that his maternal grandfather did have colon polyps unsure if there is any cancer he at age 86. Patient denies ever having a colonoscopy. Patient does have significant vascular past medical history with an ascending aortic dissection repair in 2014 and then get in 2018?2018 patient had an aortic valve and aortic root repair. Patient also had stents placed in his carotids due to the dissection. ROS General General: No weight change or fatigue Gastro Gastrointestinal: Yes abdominal pain, Yes nausea or vomiting, Yes diarrhea, Yes constipation, No blood in stool, No acid reflux, No hemorrhoids, No ulcers, No gallbladder problem, No black,tarry stools Exam Const General: cooperative, comfortable, no acute distress Resp Effort & Inspection: normal respiratory effort Cardio Rate: regular rate GI Inspection: non-distended Palpation: soft, no guarding, nontender Neuro Cranial Nerves: CN's II-XI intact bilaterally Extrem General: no clubbing, cyanosis or edema Psych Affect: normal affect Assessment & Plan Problems 1. Abnormal CT of the abdomen R93.5 2. Bilateral lower abdominal pain R10.31; R10.[address] abdomen pelvis with the patient along with the report question some possible mid sigmoid mucosal thickening however no obvious signs of inflammation were seen. Discussed with patient that it is difficult to tell up to mucosa well when it is decompressed. We will have a better look during the colonoscopy. Due to patient's significant vascular history we will keep patient on aspirin and Plavix. I have discussed the above with the patient. I have offered the patient colonoscopy for evaluation. I have explained the risks/benefits of the procedure and described the procedure. I have discussed the risks with the patient, including but not limited to: infection, bleeding, perforation of the GI tract requiring emergency surgery, inability to complete the procedure, injury to any internal organs, complications of anesthesia, etc. - the patient understands and agrees to proceed. I have answered all the patient's questions to the patient's satisfaction and the patient has no further questions. The patient has been given instructions for the colon cleansing preparation. 1 day of clears, MiraLAX Dulcolax split prep. Dinorah Randle M.D. Pager: [phone] [facility] [address] [place] [address], [address] [place] [address] Office: [phone] Orders Orders: Colonoscopy Today Plan Detail Follow Up We will schedule colonoscopy Coding Level of Care Code Off vis,new,level [address] of the abdomen R93.5 Bilateral lower abdominal pain R10.31; R10.32 COVID (Procedure Consent) Procedure Criteria Procedure Criteria: Yes Elective The surgeon/proceduralist and patient have discussed in detail the risk of exposure to and/or potential harm posed by the COVID-19 virus with having a surgery/procedure at this time versus the risk of? delaying the surgery/procedure. It is not possible to know either the risk of delaying the surgery or procedure or chance of getting an infection with perfect accuracy, but a joint decision was made between the patient and the surgeon/proceduralist ?to proceed at this time with the scheduled surgery/procedure as indicated on the consent form. 06/02/20 2700 <Electronically signed by Dinorah Torres am, MD> Date _ Dinorah Randle MD
[2020-06-21 09:35] VITALS: BP 113/57; BP 155/83; PULSE 64; RESP 16; TEMP 36.4; O2SAT 100
--- NOTE | 2020-06-21 09:35 | OP.COLON_ITS ---
Patient Name: Chad Fraga Procedure Date: 06/21/2020 8:57 AM Date of : 1975 Age: 44 Procedure: Colonoscopy Indications: Abnormal CT of the GI tract Providers: Dinorah Randle MD Referring MD: Nguyễn Stark MD Medicines: Monitored Anesthesia Care Patient Profile: This is a 44 year old male. Last Colonoscopy: none. The patient's first colonoscopy is today. Complications: No immediate complications. Procedure: Pre-Anesthesia Assessment: - Prior to the procedure, a History and Physical was performed, and patient medications and allergies were reviewed. The patient's tolerance of previous anesthesia was also reviewed. The risks and benefits of the procedure and the sedation options and risks were discussed with the patient. All questions were answered, and informed consent was obtained. Anticoagulants: The patient has taken aspirin. It was decided not to withhold this medication prior to the procedure. ASA Grade Assessment: Per anesthesia. After reviewing the risks and benefits, the patient was deemed in satisfactory condition to undergo the procedure. - Prior to the procedure, a History and Physical was performed, and patient medications and allergies were reviewed. The patient's tolerance of previous anesthesia was also reviewed. The risks and benefits of the procedure and the sedation options and risks were discussed with the patient. All questions were answered, and informed consent was obtained. Prior Anticoagulants: The patient has taken Plavix (clopidogrel), last dose was 1 day prior to procedure. ASA Grade Assessment: Per anesthesia. After reviewing the risks and benefits, the patient was deemed in satisfactory condition to undergo the procedure. After I obtained informed consent, the scope was passed under direct vision. Throughout the procedure, the patient's blood pressure, pulse, and oxygen saturations were monitored continuously. The pediatric colonoscope was introduced through the anus and advanced to the cecum, identified by the appendiceal orifice, ileocecal valve and palpation. The colonoscopy was performed without difficulty. The patient tolerated the procedure well. The quality of the bowel preparation was good. Scope In: 9:13:31 AM Scope Withdrawal Time 0 hours 10 minutes 26 seconds Scope Out: 9:29:39 AM Total Procedure Duration Time 0 hours 16 minutes 8 seconds Findings: Hemorrhoids were found on perianal exam. Multiple small-mouthed diverticula were found in the sigmoid colon and descending colon. Non-bleeding internal hemorrhoids were found. The hemorrhoids were Grade I (internal hemorrhoids that do not prolapse). Impression: - Hemorrhoids found on perianal exam. - Diverticulosis in the sigmoid colon and in the descending colon. - Non-bleeding internal hemorrhoids. - No specimens collected. Recommendation: - Repeat colonoscopy in 10 years for screening purposes. - Continue present medications. - Continue aspirin and Plavix (clopidogrel) at prior doses. Procedure Code(s): --- Professional --- 35012, Colonoscopy, flexible; diagnostic, including collection of specimen(s) by brushing or washing, when performed (separate procedure) Diagnosis Code(s): --- Professional --- K64.0, First degree hemorrhoids K57.30, Diverticulosis of large intestine without perforation or abscess without bleeding R93.3, Abnormal findings on diagnostic imaging of other parts of digestive tract CPT copyright 2017 [employer]. All rights reserved. The codes documented in this report are preliminary and upon health and safety specialist review may be revised to meet current compliance requirements. MD Dinorah Hahn MD 06/21/2020 9:35:07 AM This report has been signed electronically. Number of Addenda: 0 Note Initiated On: 06/21/2020 8:57 AM
--- NOTE | 2020-06-21 09:35 | OP.CCLET_ITS ---
06/21/2020 Nguyễn Stark MD [address] [place] [address] Re : Colonoscopy procedure for Chad Fraga Dear Dr. Stark This procedure was performed on Sunday, June 21, 2020. My impressions and recommendations are as follows: Impressions : - Hemorrhoids found on perianal exam. - Diverticulosis in the sigmoid colon and in the descending colon. - Non-bleeding internal hemorrhoids. - No specimens collected. Recommendations : - Repeat colonoscopy in 10 years for screening purposes. - Continue present medications. - Continue aspirin and Plavix (clopidogrel) at prior doses. My findings are described in the full procedure note, which is enclosed. If I can be of further assistance, please feel free to contact me at Doctor phone number(s): , Work: . Sincerely, MD Dinorah Hahn MD 06/21/2020 9:35:07 AM This report has been signed electronically.
[2020-06-21 09:40] VITALS: BP 155/83; BP 93/54; PULSE 62; RESP 18; O2SAT 99
[2020-06-21 09:45] VITALS: BP 104/58; BP 155/83; PULSE 61; RESP 18; TEMP 36.5; O2SAT 99
[2020-06-21 10:09] VITALS: BP 155/83
== END 2020-06-21 10:24 | disposition home or self-care (01) ==
LOC: EN 08:23 → AC 08:23
PROVIDERS: PCP Family Medicine Geriatric Medicine; Referring Provider Family Medicine Geriatric Medicine; Visit Provider Surgery
PROC: 0DJD8ZZ Inspection of Lower Intestinal Tract, Via Natural or Artificial Opening Endoscopic (ICD-10-PCS; CPT 45378; principal; 2020-06-21 09:25)
DX: R94.8 Abnormal results of function studies of other organs and systems (principal); Z20.828 Contact with and (suspected) exposure to other viral communicable diseases; K64.0 First degree hemorrhoids; K57.30 Diverticulosis of large intestine without perforation or abscess without bleeding; R93.3 Abnormal findings on diagnostic imaging of other parts of digestive tract; K21.9 Gastro-esophageal reflux disease without esophagitis; Z79.02 Long term (current) use of antithrombotics/antiplatelets; Z79.82 Long term (current) use of aspirin; Z79.899 Other long term (current) drug therapy; I48.91 Unspecified atrial fibrillation; E78.5 Hyperlipidemia, unspecified; Z86.73 Personal history of transient ischemic attack (TIA), and cerebral infarction without residual deficits; Z87.891 Personal history of nicotine dependence
CPT/HCPCS: 45378; 87426; C9803; J7120; J2405

== ENCOUNTER 2020-06-26 20:16 | Emergency (ER) | payer MEDICARE, MEDICAID, SELFPAY ==
[2020-06-26 20:17] VITALS: BP 159/83; PULSE 57; RESP 18; TEMP 36.1; O2SAT 99; BMI 23.3
--- NOTE | 2020-06-26 20:23 | EKG12_ITS ---
Test Reason : DYSRHYTHMIA Blood Pressure : / mmHG Vent. Rate : 050 BPM Atrial Rate : 050 BPM P-R Int : 166 ms QRS Dur : 094 ms QT Int : 424 ms P-R-T Axes : 032 -34 038 degrees QTc Int : 386 ms Sinus bradycardia Left axis deviation Abnormal ECG Confirmed by DAWIT MCCOLLUM, LAURITA ([id number]), slot editor NABEEL STALEY ([id number]) on 06/28/2020 10:16:10 AM Referred By: KRYSTAL Confirmed By:LAURITA PASTOR MD
--- NOTE | 2020-06-26 20:23 | CT_ITS ---
STUDY: CT BRAIN WITHOUT CONTRAST REASON FOR EXAM: Male, 44 years old. Confusion RADIATION DOSAGE (If Supplied By Facility): CTDIvol = ( 44.99 ) mGy, DLP = ( 779.24 ) mGycm TECHNIQUE: Transaxial CT imaging of the brain was performed without administration of intravenous contrast material. Individualized dose optimization techniques were used for this CT. COMPARISON: 03/31/2014 and MRI of the head dated 04/04/2017 FINDINGS: Normal soft tissue structures. Normal calvarium. There is stable asymmetry of the left anterior horn of the left lateral ventricle , with the left appearing larger than the right, with left to right midline shift of 5.4 that appears more pronounced. Normal white matter tracts of the cerebral hemispheres. There is a low-attenuation focus within the right basal ganglia consistent with an old inferior infarct. Normal brainstem. Normal cerebellum. There is no intracranial hemorrhage. There are no findings of an acute ischemic infarction. Normal visualized paranasal sinuses. CT/Brain/Head without Contrast IMPRESSION: Stable asymmetric anterior horn of the left lateral ventricle associated with a more pronounced left to right midline shift of of uncertain etiology; consider an MRI with contrast for further evaluation. Old right basal ganglia lacunar infarct. N.B. : The above information has been verbally conveyed by Lizzie Shearer MD to Dr. Min Bingham MD, on 06/26/2020 21:50:41 (ET). Electronically Signed: Lizzie Shearer MD at 21:53 EDT Tel , Service support ,
--- NOTE | 2020-06-26 20:25 | ED.VIS.GEN ---
History of Present Illness Chief Complaint: Alt LOC Informant: Patient Onset: Today Context: Gradual Onset Timing: Intermittent Current Severity: Moderate Maximum Severity: Moderate Narrative: The patient is a 44-year-old male with medical history significant for prior aortic dissection with repair, resultant stroke from the dissection with mild left hand weakness residual, who presents to the emergency department with dissociative symptoms. The patient states that for the past 24 hours, he had symptoms where he is just felt confused. He states he feels like he is shaky and almost panicked. He states that he is not had chest pain. He denies visual change. He denies any increasing weakness. He states that he talked to his radiation / chemistry technician who said that he might be having hypoglycemic events. The patient has no history of diabetes. He denies shortness of breath. He recently had a CTA about 3 weeks ago of his chest that showed no significant change of his repair dissection. He states he was just concerned given his history and wanted to be evaluated. Prior similar symptoms: No Recent Illness/Hospitalization: No Past Medical History - Allergies and Home Meds Allergies/Adverse Reactions: Allergies oxycodone [From Percocet] Allergy (Verified 06/26/20 20:18) Shortness of breath atorvastatin Adverse Reaction (Severe, Verified 06/26/20 20:18) Dizziness citalopram [From Celexa] Adverse Reaction (Verified 06/26/20 20:18) erectile dysfunction Primary Care Physician: Nguyễn Stark Chi, MD [Primary Care Provider] - Prior records reviewed: Yes Past Medical History: - - Hypertension, aortic dissection Surgical History: - - Aortic dissection repair, aortic dissection revision with bovine valve replacement Smoking Status: Former smoker Review of Systems General: Denies: Chills, Fever, Sweats Eyes: Denies: Visual changes - bilaterally, Diplopia ENT: Denies: Rhinorrhea, Sore throat Cardiovascular: Denies: Chest pain, Palpitations Respiratory: Denies: Dyspnea, Cough, Dyspnea on exertion Gastrointestinal: Denies: Abdominal pain, Nausea, Vomiting, Diarrhea, Melena, Hematochezia Genitourinary: Denies: Dysuria, Hematuria, Frequency Musculoskeletal: Denies: Back pain, Extremity Pain Skin: Denies: Rash, Wounds Neurological: Denies: Headache, Weakness, Numbness Physical Exam Vital Signs/Narrative: Vital Signs Temp Pulse Resp BP Pulse Ox 06/26/20 20:17 97 F L 57 L 18 159/83 H 99 Inital Vital Signs reviewed: Yes General: Well nourished, Well developed, No Acute Distress Head: Normocephalic, Atraumatic Eyes: Perrl, EOMI ENT: Moist mucous membranes, No rhinorrhea Neck: Supple, Nontender Cardiovascular: Regular rate, Regular rhythm, No murmurs Respiratory: No distress, CTA bilaterally, Chest nontender Abdomen: Soft, Nontender, Nondistended, Normal bowel sounds Back: Nontender, Normal Inspection Extremities: Nontender, No edema Skin: Normal color, No rash Neurological: Alert, Oriented x3, Cranial nerves II-XII grossly intact, Normal Sensation, - - Contracture of the left hand chronic, otherwise no focal deficit noted. Psychological: Normal affect, Normal Mood Diagnostic/Tx/Re-eval Abnormal Lab Results 06/26/20 06/26/20 06/26/20 20:27 20:31 20:31 WBC 6.8 RBC 5.06 Hgb 14.8 Hct 44.4 MCV 87.7 MCH 29.2 MCHC 33.3 RDW Std Deviation 38.5 RDW Coeff of Cheri 11.9 Plt Count 218 MPV 10.7 Immature Gran % (Auto) 0.300 Neut % (Auto) 69.6 Lymph % (Auto) 21.6 [place]berry % (Auto) 6.9 Eos % (Auto) 1.2 Baso % (Auto) 0.4 Absolute Neuts (auto) 4.8 Absolute Lymphs (auto) 1.47 Nucleated RBC % 0 Sodium 141 Potassium 3.7 Chloride 109 H Carbon Dioxide 27.0 Anion Gap 5 BUN 19 H Creatinine 1.06 Estim Creat Clear Calc 79.42 Est GFR (MDRD) Af Amer 97 Est GFR (MDRD) Non-Af 80 BUN/Creatinine Ratio 17.9 Glucose 99 Calcium 8.7 Total Bilirubin 0.50 AST 18 ALT 22 Alkaline Phosphatase 86 Total Protein 6.8 Albumin 3.9 Globulin 2.9 Albumin/Globulin Ratio 1.3 POC Glucose 99 - Rhythm Strip Rhythm Strip: Sinus Rhythm Rate: 80 Ectopy: None - EKG Initial EKG Interpretation: Sinus Rhythm, No Acute Injury Pattern Prior: Unchanged - Medical Decision Making The patient presents with intermittent lightheadedness and transient confusion. He does have some contracture of the left hand which is chronic. There is no new focal deficit. He ambulates with a steady gait. He has no nystagmus or abnormalities of vision. Metabolic work-up was pursued. EKG was obtained. Was sinus rhythm without acute ischemia. Screening labs obtained were unremarkable. Patient underwent noncontrast CT of the head. I did have a long conversation with this result with the radiologist. There is asymmetry of the lateral horn of the left ventricle and questionable shift. There is no evidence of hydrocephalus. The radiologist was able to review an MRI from 2017. This looks very similar. She did question a slow-growing mass, but given the stability over the past 4 years, my suspicion for a dangerous process is very low. Again, the patient's neurologic exam is reassuring. I do feel that he can safely follow-up for an outpatient MRI especially given the stability over the past 4 years. The patient is comfortable with this plan of care and will be discharged home. Impression 1. Transient confusion-resolved ED Disposition - Plan for ED Patient: Instructions: ED Confusion Referrals: Nguyễn Stark Chi, MD [Primary Care Provider] - Additional Instructions: As we spoke, I do think that the next best test would be an MRI of your brain, thyroid studies, and likely Holter monitor.
[2020-06-26 20:36] LABS: Bedside Glucose 99 mg/dL (70-110)
[2020-06-26 20:39] LABS: Absolute Lymphocyte Count 1.47 X10^3/uL (0.83-4.51); Absolute Neutrophil Count 4.8 X10^3/uL (2.0-7.7); Basophil# 0.03 X10^3/uL; Basophil% 0.4 % (0-1); Eosinophil# 0.08 X10^3/uL; Eosinophils% 1.2 % (0-5); Hematocrit 44.4 % (40-54); Hemoglobin 14.8 g/dL (13.0-16.5); Lymphocyte # 1.47 X10^3/ul (4.0); Lymphocyte % 21.6 % (19-41); Mean Corp Hgb Conc 33.3 g/dL (32-36); Mean Corpuscular Hgb 29.2 pg (27.0-32.0); Mean Corpuscular Volume 87.7 fL (80-94); Mean Platelet Vol. 10.7 fl (6.2-12.0); Monocyte# 0.47 X10^3/uL; Monocyte% 6.9 % (0-10); NRBC Flagged by Analyzer 0 % (0-5); Neutrophil # 4.75 X10^3/uL (2.7-7.7); Neutrophil % 69.6 % (47-70); Platelet Count 218 K/mm3 (150-450); RBC Distribution Width CV 11.9 % (11.6-14.6); RBC Distribution Width SD 38.5 fl (35.1-43.9); Red Blood Count 5.06 M/mm3 (4.6-6.2); White Blood Count 6.8 K/mm3 (4.4-11.0)
[2020-06-26 20:57] LABS: ALB/GLOB Ratio 1.3 RATIO (0.9-2.4); AST(SGOT) 18 U/L (15-37); Alanine Aminotransfer ALT/SGPT 22 U/L (16-61); Albumin, Serum 3.9 g/dL (3.2-5.0); Alkaline Phosphatase 86 U/L (45-117); Anion Gap 5 (5-15); BUN 19 mg/dL (7-18); BUN/Creat Ratio 17.9 RATIO (10-20); Calcium,Total 8.7 mg/dL (8.5-10.1); Chloride 109 mmol/L (98-107); Creatinine, Serum 1.06 mg/dL (0.70-1.30); EST Glomerular Filtration Rate 80 mL/min (>60); Est Glom Filt Rate - Afr Amer 97 mL/min (>60); Estimated Creatinine Clearance 79.42 ml/min; Globulin 2.9 g/dL (2.2-4.2); Glucose 99 mg/dL (74-106); Potassium 3.7 mmol/L (3.5-5.1); Protein, Total 6.8 g/dL (6.4-8.2); Sodium Level 141 mmol/L (136-145)
[2020-06-26 22:05] VITALS: BP 139/75; PULSE 68; RESP 15; O2SAT 98
== END 2020-06-26 22:06 | disposition home or self-care (01) ==
LOC: ED 21:16
PROVIDERS: Emergency Provider Emergency Medicine; PCP Family Medicine Geriatric Medicine
DX: R41.0 Disorientation, unspecified (principal); I10 Essential (primary) hypertension; Z95.2 Presence of prosthetic heart valve; Z86.73 Personal history of transient ischemic attack (TIA), and cerebral infarction without residual deficits; Z87.891 Personal history of nicotine dependence; Z79.899 Other long term (current) drug therapy; Z79.82 Long term (current) use of aspirin
CPT/HCPCS: 70450; 80053; 82962; 85025; 93005; 99285; J7030; J7040; A4216

== ENCOUNTER → 2020-06-27 15:32 | Outpatient (CLI) | payer MEDICARE, MEDICAID, SELFPAY ==
[2020-06-26 20:17] VITALS: BMI 23.3
[2020-06-27 17:27] LABS: T3 Uptake 36 % (33-40); T4 Free Direct 0.96 ng/dL (0.76-1.46); Thyroid Stim Hormone (TSH) 3.01 uIU/mL (0.358-3.74)
[2020-06-27 17:46] LABS: T7 / Free Thyroxin Index 0.3 (1.4-4.5)
== END ==
PROVIDERS: PCP Family Medicine Geriatric Medicine; Visit Provider Family Medicine Geriatric Medicine
DX: F41.0 Panic disorder [episodic paroxysmal anxiety] (principal)
CPT/HCPCS: 36415; 84439; 84443; 84479

== ENCOUNTER → 2020-06-28 12:21 | Outpatient (CLI) | payer MEDICARE, MEDICAID, SELFPAY ==
[2020-06-26 20:17] VITALS: BMI 23.3
--- NOTE | 2020-06-28 | MRI_ITS ---
STUDY: MRI BRAIN WITHOUT CONTRAST REASON FOR EXAM: Male, 44 years old. ENCEPHALOPATHY TECHNIQUE: Standardized multiplanar fat and water weighted pulse sequences were obtained. COMPARISON: CT 06/26/2020, MRI 04/02/2017 FINDINGS: Normal size of the ventricles and extra-axial spaces for the patient''s age. Normal white matter tracts of the supratentorial brain. There is no evidence for recent intracranial ischemia or other cause of cytotoxic edema on diffusion weighted imaging (DWI). Normal T2* images of the brain without demonstrated susceptibility artifact. There is no demonstrated hemosiderin stain. No change in the chronic lacunar infarct of the right basal ganglia. Normal thalami. There is no extra-axial fluid accumulation. Normal flow voids within the major intracranial circulation suggesting patency by spin echo criteria. Normal sella turcica, pituitary gland, infundibular stalk, optic chiasm and hypothalamus. Normal tectal plate and pineal gland. Normal midbrain, brea and medulla. Normal cerebellum. Normal basal cisterns. Normal bilateral temporal bones. Normal bilateral internal auditory canals. No demonstrated orbital abnormality, within the constraints of a routine brain study. Normal visualized paranasal sinuses. Normal calvarium and skull base. Normal visualized soft tissue structures. Normal visualized upper cervical spine. MRI/Brain without Contrast IMPRESSION: No change from 04/02/2017 Electronically Signed: Marco Antonio Quiros MD at 16:01 EDT Tel , Service support ,
== END ==
PROVIDERS: PCP Family Medicine Geriatric Medicine; Referring Provider Family Medicine Geriatric Medicine; Visit Provider Family Medicine Geriatric Medicine
DX: G93.40 Encephalopathy, unspecified (principal)
CPT/HCPCS: 70551

== ENCOUNTER → 2020-07-06 16:35 | Outpatient (CLI) | payer MEDICARE, MEDICAID, SELFPAY ==
[2020-06-26 20:17] VITALS: BMI 23.3
--- NOTE | 2020-07-06 16:40 | RAD_ITS ---
INDICATION: NECK PAIN EXAMINATION/TECHNIQUE: X-RAY - XR Spine Cervical 2 or 3 Views COMPARISON: None. FINDINGS: VERTEBRAE: Preserved vertebral body height. No fracture. No spondylolisthesis. Preservation of the normal cervical lordosis. No significant facet arthropathy. DISCS: Disc spaces are maintained. NECK SOFT TISSUES: No prevertebral soft tissue widening. LUNG APICES: Clear. Partially visualized aortic stent. RAD/Cerv Spine 2 or 3 Views IMPRESSION: Normal cervical spine. Electronically Signed: Bert Daly MD at 17:36 EDT Tel , Service support ,
== END ==
PROVIDERS: PCP Family Medicine Geriatric Medicine; Referring Provider Family Medicine Geriatric Medicine; Visit Provider Family Medicine Geriatric Medicine
DX: M54.2 Cervicalgia (principal)
CPT/HCPCS: 72040

== ENCOUNTER → 2020-11-14 09:13 | Outpatient (CLI) | payer MEDICARE, MEDICAID, SELFPAY ==
[2020-11-14 14:32] LABS: Absolute Lymphocyte Count 1.33 X10^3/uL (0.83-4.51); Absolute Neutrophil Count 3.7 X10^3/uL (2.0-7.7); Basophil# 0.03 X10^3/uL; Basophil% 0.5 % (0-1); Eosinophil# 0.08 X10^3/uL; Eosinophils% 1.4 % (0-5); Hematocrit 46.1 % (40-54); Hemoglobin 15.4 g/dL (13.0-16.5); Lymphocyte # 1.33 X10^3/ul (0.83-4.51); Lymphocyte % 23.5 % (19-41); Mean Corp Hgb Conc 33.4 g/dL (32-36); Mean Corpuscular Hgb 28.8 pg (27.0-32.0); Mean Corpuscular Volume 86.3 fL (80-94); Mean Platelet Vol. 10.8 fl (6.2-12.0); Monocyte# 0.49 X10^3/uL; Monocyte% 8.7 % (0-10); NRBC Flagged by Analyzer 0 % (0-5); Neutrophil # 3.69 X10^3/uL (2.7-7.7); Neutrophil % 65.2 % (47-70); Platelet Count 240 K/mm3 (150-450); RBC Distribution Width CV 11.9 % (11.6-14.6); RBC Distribution Width SD 37.3 fl (35.1-43.9); Red Blood Count 5.34 M/mm3 (4.6-6.2); White Blood Count 5.7 K/mm3 (4.4-11.0)
[2020-11-14 14:58] LABS: ALB/GLOB Ratio 1.2 RATIO (0.9-2.4); AST(SGOT) 25 U/L (15-37); Alanine Aminotransfer ALT/SGPT 42 U/L (16-61); Albumin, Serum 3.7 g/dL (3.2-5.0); Alkaline Phosphatase 100 U/L (45-117); Anion Gap 5 (5-15); BUN 12 mg/dL (7-18); BUN/Creat Ratio 11.3 RATIO (10-20); Calcium,Total 8.9 mg/dL (8.5-10.1); Chloride 107 mmol/L (98-107); Creatinine, Serum 1.06 mg/dL (0.70-1.30); EST Glomerular Filtration Rate 80 mL/min (>60); Est Glom Filt Rate - Afr Amer 97 mL/min (>60); Globulin 3.2 g/dL (2.2-4.2); Glucose 87 mg/dL (74-106); Potassium 4.4 mmol/L (3.5-5.1); Protein, Total 6.9 g/dL (6.4-8.2); Sodium Level 140 mmol/L (136-145); Thyroid Stim Hormone (TSH) 2.46 uIU/mL (0.358-3.74)
== END ==
PROVIDERS: PCP Family Medicine Geriatric Medicine; Visit Provider Family Medicine Geriatric Medicine
DX: F52.8 Other sexual dysfunction not due to a substance or known physiological condition (principal); I10 Essential (primary) hypertension
CPT/HCPCS: 36415; 80053; 84403; 84443; 85025

== ENCOUNTER 2021-05-24 11:18 | Outpatient (CLI) | payer MEDICARE, MEDICAID, SELFPAY ==
[2021-05-24 12:24] LABS: Absolute Lymphocyte Count 1.51 X10^3/uL (0.83-4.51); Absolute Neutrophil Count 3.3 X10^3/uL (2.0-7.7); Basophil# 0.03 X10^3/uL; Basophil% 0.6 % (0-1); Eosinophil# 0.06 X10^3/uL; Eosinophils% 1.1 % (0-5); Hematocrit 46.1 % (40-54); Lymphocyte # 1.51 X10^3/ul (0.83-4.51); Lymphocyte % 28.1 % (19-41); Mean Corp Hgb Conc 34.7 g/dL (32-36); Mean Corpuscular Hgb 29.3 pg (27.0-32.0); Mean Corpuscular Volume 84.3 fL (80-94); Monocyte# 0.45 X10^3/uL; Monocyte% 8.4 % (0-10); NRBC Flagged by Analyzer 0 % (0-5); Neutrophil # 3.31 X10^3/uL (2.7-7.7); Neutrophil % 61.4 % (47-70); Platelet Count 247 K/mm3 (150-450); RBC Distribution Width CV 12.4 % (11.6-14.6); RBC Distribution Width SD 37.9 fl (35.1-43.9); Red Blood Count 5.47 M/mm3 (4.6-6.2); White Blood Count 5.4 K/mm3 (4.4-11.0)
[2021-05-24 13:02] LABS: ALB/GLOB Ratio 1.2 RATIO (0.9-2.4); AST(SGOT) 21 U/L (15-37); Alanine Aminotransfer ALT/SGPT 27 U/L (16-61); Alkaline Phosphatase 79 U/L (45-117); Anion Gap 3 (5-15); BUN 12 mg/dL (7-18); BUN/Creat Ratio 11.1 RATIO (10-20); Calcium,Total 8.9 mg/dL (8.5-10.1); Chloride 110 mmol/L (98-107); Creatinine, Serum 1.08 mg/dL (0.70-1.30); EST Glomerular Filtration Rate 78 mL/min (>60); Est Glom Filt Rate - Afr Amer 94 mL/min (>60); Globulin 3.3 g/dL (2.2-4.2); Glucose 91 mg/dL (74-106); Potassium 4.2 mmol/L (3.5-5.1); Protein, Total 7.3 g/dL (6.4-8.2); Sodium Level 141 mmol/L (136-145); Thyroid Stim Hormone (TSH) 1.57 uIU/mL (0.358-3.74)
== END 2021-05-24 23:59 | disposition home or self-care (01) ==
LOC: POLAB3 11:20
PROVIDERS: PCP Family Medicine Geriatric Medicine; Visit Provider Family Medicine Geriatric Medicine
DX: F52.8 Other sexual dysfunction not due to a substance or known physiological condition (principal); I10 Essential (primary) hypertension
CPT/HCPCS: 36415; 80053; 84403; 84443; 85025

== ENCOUNTER → 2021-11-29 | Outpatient (CLI) | payer MEDICARE, MEDICAID, SELFPAY ==
[2021-11-29 12:38] LABS: Absolute Lymphocyte Count 1.39 X10^3/uL (0.83-4.51); Absolute Neutrophil Count 3.5 X10^3/uL (2.0-7.7); Basophil# 0.03 X10^3/uL; Basophil% 0.5 % (0-1); Eosinophils% 1.8 % (0-5); Hematocrit 45.4 % (40-54); Hemoglobin 15.4 g/dL (13.0-16.5); Lymphocyte # 1.39 X10^3/ul (0.83-4.51); Lymphocyte % 25.4 % (19-41); Mean Corp Hgb Conc 33.9 g/dL (32-36); Mean Corpuscular Hgb 29.1 pg (27.0-32.0); Mean Corpuscular Volume 85.7 fL (80-94); Monocyte# 0.44 X10^3/uL; NRBC Flagged by Analyzer 0 % (0-5); Neutrophil % 63.9 % (47-70); Platelet Count 234 K/mm3 (150-450); RBC Distribution Width CV 11.9 % (11.6-14.6); RBC Distribution Width SD 37.5 fl (35.1-43.9); White Blood Count 5.5 K/mm3 (4.4-11.0)
[2021-11-29 13:06] LABS: Albumin, Serum 3.7 g/dL (3.2-5.0); BUN 18 mg/dL (7-18); BUN/Creat Ratio 16.2 RATIO (10-20); Creatinine, Serum 1.11 mg/dL (0.70-1.30); EST Glomerular Filtration Rate 75 mL/min (>60); Est Glom Filt Rate - Afr Amer 91 mL/min (>60); Glucose 104 mg/dL (74-106); Protein, Total 6.9 g/dL (6.4-8.2)
[2021-11-29 13:07] LABS: ALB/GLOB Ratio 1.2 RATIO (0.9-2.4); AST(SGOT) 20 U/L (15-37); Alanine Aminotransfer ALT/SGPT 27 U/L (16-61); Alkaline Phosphatase 101 U/L (45-117); Anion Gap 4 (5-15); Calcium,Total 9.1 mg/dL (8.5-10.1); Chloride 110 mmol/L (98-107); Globulin 3.2 g/dL (2.2-4.2); Potassium 4.5 mmol/L (3.5-5.1); Sodium Level 142 mmol/L (136-145); Thyroid Stim Hormone (TSH) 2.17 uIU/mL (0.358-3.74)
== END | disposition home or self-care (01) ==
LOC: POLAB3 10:15
PROVIDERS: PCP Family Medicine Geriatric Medicine; Visit Provider Family Medicine Geriatric Medicine
DX: I10 Essential (primary) hypertension (principal)
CPT/HCPCS: 36415; 80053; 84443; 85025

== ENCOUNTER 2021-12-05 10:00 | Outpatient (RCR) | payer MEDICARE, MEDICAID, SELFPAY ==
--- NOTE | 2021-06-05 10:41 | HP.OTEVAL_ITS ---
Patient's Visit Information BECK WANG is a 45 year old M, referred to Occupational Therapy by Dr. Nguyễn Stark MD, with a diagnosis of CVA/ left UE weakness/dystonia tightness after stroke. Date of Evaluation: 06/04/21 Occupational Therapist: Emperatriz Marie, ARIEL/Tila, CHT - Subjective This 45 year old male was seen for OT eval with dx of CVA with left UE weakness and left wrist/forearm tightness- pt has PMH of proximal aortic dissection, s/p removal aortic root, s/p removal porcine valve- s/p bovine aortic valve replacement. pt also had bicuspid aortic valve, bovine aortic valve replacement s/p elephant trunk . pt has atrial fibrillation. results from having heart sx pt suffered left hemiplegia following stroke. pt also recent dx of dysautonomia. pt reports frustration due to limited left wrist/hand function and weakness- pt states any daily tasks that uses bilateral hand he is extremely limited or can not due- pt also has concerns of overusing right UE with daily tasks and would like to gain as much function of his left UE to use it to perform such activities as folding laundry, meal prep or manipulate soap and wash cloth for bating- pt motivated - ADLs Dressing: Overhead shirt, Button shirt, Pants, Shoes Fasteners: Tie shoes, Buttons, Zippers, Belt Comments: uable Eating: Cut food, Butter bread Bathing: Handle washcloth & soap, Squeeze shampoo bottle Toileting: Manage clothing Grooming: Shave, Trim shi, Trim nails, Squeeze toothpaste on, Kemp teeth Kitchen: Chop with knife, Peel fruits & vegetables, Open jars, Open bottle caps, Ziplock bags, Take dish out of oven, Load/unload parachute supervisor, Place dish in microwave Household: Sweep/mop, Laundry Yard: [place], Use shovel, Use pruners, Use trowel Miscellaneous: Open medication bottle, Handle money (change), Hold change, Carry shopping bag, Shuffle cards, Use power tools, Use computer keyboard, Function in drive through window - ROM Shoulder: right shoulder WNL left shoulder flexion slow but gest 145* flexion Elbow: right WNL left -10/120 Forearm: right WNL left N ( very limited with movement of supination /pronation Wrist: right WNL left 35/40 ROM Comments: pt demo with dystonia of finger/wrist of left hand limiting pts fluid digit flexion/ext along with limited wrist ROM and forearm supination/ pronation - Strength Teletypewriter Operator: right 100# left 15# this is decrease since last seen in 2019 Lateral Pinch: right 18# left Unable Tripod Pinch: right 18# left unable - Sensation Sensation Comments: states tingling sensation forearm down left. right WNL - DASH-Disabilities of Arm, Shoulder& Hand DASH Sum: 118 - Goals Goal:: pt will demo a increase in left jackhammer operator strength by 30# to increase pts ind. with performing ADLs by dc. pt will demo the ability to pinch lateral and tripod at 8# to increase pts ind. with ADls and IADLs. by d/c Goal:: pt will demo left forearm supination/pronation to 65* or greater to receive and distribute change IND. by d.c Goal:: pt will report pain in left UE no greater than 2/10 by d/.c Goal:: pt will demo the ability to grasp and release medium, small and large objects to simulate meal prep tasks at IND level by d.c. pt will demo grasp release of box to simulate lift of laundry basket with 10# IND by dc. pt will demo increase in FMS indicated by use of computer keyboard typing 2 sentences with no more than 3 mistakes by d.c Goal:: pt will demo the understanding of using modalities to decrease dystonia movement patterns with functional use of left UE with bilateral ADLs by d.c - Rehabilitation General Assessment: Pt is well know to this therapist as he has been treated by me in the past- today he is demo with increase tone of FCR of wrist and FDS/FDP of digits FPL all demo mod-max tone- its noted that at rest fingers just curl up on their own and become painful- pt weakness and limited control over tone/dystonia pt is limited with any bilateral hand tasks for ADLS, IE brushing teeth, meal prep, gardening - dressing and bathing- pt demo need for skilled OT services for 24 visits to increase pts ind with ADLs and IADLS. Rehabilitation Potential: Good - Anticipated Interventions A/AAROM/PROM, Strengthening, Triggerpoint Release, Joint Protection/Energy Conservation, Ergonomic Education, Fine Motor Coord/Bishnu, Neuro Reeducation, Caregiver Training, Home Program - Visit Plan Frequency: Monthly Duration: 12 Months TEXT: Thank you for the opportunity to evaluate your patient. For Medicare and Medicare HMO plans, please review the plan of care and approve it. It will need to be FAXED BACK to us at [phone] for Medicare purposes. Please let me know if there are questions or concerns regarding this plan of care. Physician Signature: Date:
--- NOTE | 2021-08-15 12:47 | OTREVAL_ITS ---
Dr. Nguyễn Stark MD, It has been my pleasure to treat BECK WANG over the last 7 visits for CVA/ left UE weakness/dystonia tightness after stroke. Please see the progress note below for an update on the occupational therapy plan of care! Subjective: Pt arrives to OT with report of a decrease in muscle tightness- pt reports his night brace and finger braces are working great Objective/Function: pt has made gins with his FMS and decrease in muscle tone- Pt feels he continues to struggle with weakness and limited speed with is left finger grasp/release for typing or manipulating fasteners-. pt demo with whole body compensation with attempts to supinate left forearm to receive and object. pt is making progress and would benefit from continued OT services 1x a month for 6 months Plan Frequency: Monthly Duration: 6 Months Plan: work on FMS- for 30 min and trigger point release with end range stretching -strengthening extensors Goals - Goals Patient Goals: Improve Fine Motor Skills, Use Hand/Wrist/Arm Normally Again, Be More Independent in ADLS, Resume Former Household Responsibilities (Cooking,Cleaning,Yard, etc.) Goal:: pt will demo a increase in left steam brush operator strength by 30# to increase pts ind. with performing ADLs by dc progressing . pt will demo the ability to pinch lateral and tripod at 8# to increase pts ind. with ADls and IADLs. by d/c Goal:: pt will demo left forearm supination/pronation to 65* or greater to receive and distribute change IND. by d.c Goal:: pt will report pain in left UE no greater than 2/10 by d/.c Goal:: pt will demo the ability to grasp and release medium, small and large objects to simulate meal prep tasks at IND level by d.c. pt will demo grasp release of box to simulate lift of laundry basket with 10# IND by dc. pt will demo increase in FMS indicated by use of computer keyboard typing 2 sentences with no more than 3 mistakes by d.c Goal:: pt will demo the understanding of using modalities to decrease dystonia movement patterns with functional use of left UE with bilateral ADLs by d.c Anticipated Interventions Anticipated Interventions: A/AAROM/PROM, Strengthening, Triggerpoint Release, Joint Protection/Energy Conservation, Ergonomic Education, Fine Motor Coord/Bishnu, Neuro Reeducation, Caregiver Training, Home Program Please do not hesitate to contact me at [phone] by phone or if you have questions or concerns regarding this new plan of care! Sincerely, Emperatriz Marie OTR/L, CHT
--- NOTE | 2021-12-05 11:02 | HP.OTREVAL ---
Dr. Nguyễn Stark MD, It has been my pleasure to treat BECK WANG over the last 8 visits for CVA/ left UE weakness/dystonia tightness after stroke. Please see the progress note below for an update on the occupational therapy plan of care! Subjective: pt arrives continues to report tightness of left forearm- noted increase wrist ext- and finger tenositis- pt states he continues to use mostly right hand due to left healthcare interpreter and pinch weakness- Objective/Function: pt was seen 12 visits due to clinic available scheduling-. pt demo with a decrease in tone of left pronator indicated by in crease supination-. pt demo with wrist ext but limited digit ext or thumb opposition- noted lumbrical wasting limiting pts ability to widen hand for grasp on larger objects- pt demo good grasp with adaptive thumb posturing with med. and small objects- pt is demo wit flexor tone and limited left thumb opposition- pt is making gains in OT and would benefit from continued OT services 1x week for next 8 weeks to continue to progress pts functional grasp and finger motion for typing- tying shoes with both hands and decrease tone to limit flexor contractor. Plan Frequency: Every Other Week Duration: 6 Months Visits [place] P[place]: [place] [id number],[place] [id number],[place] [id number], [place] [id number] Plan: continue per POC Goals - Goals Patient Goals: Improve Fine Motor Skills, Use Hand/Wrist/Arm Normally Again, Be More Independent in ADLS, Resume Former Household Responsibilities (Cooking,Cleaning,Yard, etc.) Goal:: pt will demo a increase in left healthcare interpreter strength by 30# to increase pts ind. with performing ADLs by dc progressing pt at 20# healthcare interpreter strength . pt will demo the ability to pinch lateral and tripod at 8# to increase pts ind. with ADls and IADLs. by d/c progressing Goal:: pt will demo left forearm supination/pronation to 65* or greater to receive and distribute change IND. by d.c pt demo left forearm supination at 25* Goal:: pt will report pain in left UE no greater than 2/10 by d/.c Goal:: pt will demo the ability to grasp and release medium, small and large objects to simulate meal prep tasks at IND level by d.c. pt will demo grasp release of box to simulate lift of laundry basket with 10# IND by dc. pt will demo increase in FMS indicated by use of computer keyboard typing 2 sentences with no more than 3 mistakes by bishnuc Goal:: pt will demo the understanding of using modalities to decrease dystonia movement patterns with functional use of left UE with bilateral ADLs by skip Anticipated Interventions Anticipated Interventions: A/AAROM/PROM, Strengthening, Triggerpoint Release, Joint Protection/Energy Conservation, Ergonomic Education, Fine Motor Coord/Bishnu, Neuro Reeducation, Caregiver Training, Home Program Please do not hesitate to contact me at [phone] by phone or if you have questions or concerns regarding this new plan of care! Sincerely, Emperatriz Marie OTR/L, CHT
== END 2021-12-05 19:00 | disposition home or self-care (01) ==
LOC: OT 10:00
PROVIDERS: PCP Family Medicine Geriatric Medicine; Referring Provider Family Medicine Geriatric Medicine; Visit Provider Family Medicine Geriatric Medicine
DX: Z86.73 Personal history of transient ischemic attack (TIA), and cerebral infarction without residual deficits (principal)
CPT/HCPCS: 97110; 97140; 97166; 97530; 97760

== ENCOUNTER 2021-12-15 21:23 | Emergency (ER) | payer MEDICARE, MEDICAID, SELFPAY ==
[2021-12-15 21:23] VITALS: BP 147/67; PULSE 56; PULSE 57; RESP 14; RESP 20; TEMP 36.8; O2SAT 98; BMI 30.2
--- NOTE | 2021-12-15 21:55 | EKG12_ITS ---
Test Reason : CP Blood Pressure : / mmHG Vent. Rate : 056 BPM Atrial Rate : 056 BPM P-R Int : 178 ms QRS Dur : 096 ms QT Int : 408 ms P-R-T Axes : 024 -39 056 degrees QTc Int : 393 ms Sinus bradycardia Left axis deviation Abnormal ECG Confirmed by DANNI MCCOLLUM, GRETA ([id number]), business editor NABEEL STALEY ([id number]) on 12/18/2021 9:09:45 AM Referred By: YANETH Confirmed By:MERVAT RAZO MD
--- NOTE | 2021-12-15 21:58 | EDS_ITS ---
HPI History of Present Illness Chief Complaint: Chest Pain Informant: patient Onset/Context/Timing Onset: Today Timing: Intermittent Current Severity: Mild Maximum Severity: Mild Narrative Narrative: Patient presents secondary to left-sided chest pain. He has a history of aortic dissection with repair and a redo in 2018. Patient states that since that time he will get occasional pain horizontally across his left lower breast. Usually it lasts about 10 minutes and resolves. Patient has now had pain for the last 6 hours that intermittently throbs in this area. He states the pain is never lasted this long. He has mild shortness of breath. He states the last 2 days he is just not felt well and had a stomach bug. He took a home COVID test yesterday that was negative. [facility] Medical History Abdominal pain Afib Back problem Bicuspid aortic valve Constipation CVA (cerebral vascular accident) Diarrhea Dysautonomia-like disorder GERD (gastroesophageal reflux disease) Hearing problem Heart murmur History of carotid artery dissection Hyperlipidemia Nausea & vomiting Pneumonia Seizure Thoracoabdominal aortic dissection Home Medications aspirin 81 mg chewable tablet 81 mg PO DAILY 12/30/15 [History Last Taken Unknown] clopidogrel 75 mg tablet 75 mg PO DAILY 10/26/16 [History Last Taken Unknown] multivitamin with iron 1 ea PO DAILY 01/02/18 [History Last Taken Unknown] simvastatin 20 mg tablet 20 mg PO QPM #30 tabs 05/22/18 [Rx Last Taken Unknown] metoprolol succinate 25 mg tablet,extended release 24 hr 12.5 mg PO BID 02/05/20 [History Last Taken Unknown] omeprazole 20 mg capsule,delayed release 20 mg PO DAILY 02/05/20 [History Last Taken Unknown] Allergy/AdvReac Type Severity Reaction Status Date / Time oxycodone [From Percocet] Allergy Shortness Verified 12/15/21 21:23 of breath atorvastatin AdvReac Severe Dizziness Verified 12/15/21 21:23 citalopram [From Celexa] AdvReac erectile Verified 12/15/21 21:23 dysfunction Family History Father CVA (cerebral vascular accident) Heart disease Hypertension Myocardial infarction Grandfather CAD (coronary artery disease) Mother CVA (cerebral vascular accident) Hypertension Heart disease IPF (idiopathic pulmonary fibrosis) Other Cervical cancer Colon cancer Diabetes Ovarian cancer Surgical History History of aortic valve replacement (06/04/18) History of appendectomy History of bilateral carotid endarterectomy History of thoracic aortic aneurysm repair (05/2018) History of vasectomy Hx of myringotomy Social History Smoking Status: Former smoker alcohol intake: never substance use type: does not use caffeine: No what type of physical activity do you participate in: walking frequency: daily duration: < 15 minutes/day seatbelt use: always do you feel safe at home: Yes ROS ROS ED Constitutional Constitutional ED: Denies chills or fever(s) Eyes Eyes: Denies change in vision or discharge from eye(s) ENT ENT ED: Denies discharge from eye(s), rhinorrhea or sore throat Cardiovascular Cardiovascular: Reports chest pain; Denies palpitations Respiratory/Chest Respiratory/Chest: Reports dyspnea; Denies cough Gastrointestinal Gastrointestinal: Reports nausea; Denies abdominal pain, diarrhea or vomiting Genitourinary Genitourinary ED: Denies difficulty urinating or dysuria Musculoskeletal Musculoskeletal: Reports back pain; Denies extremity pain Integumentary Denies Abrasions or rash Neurologic Neurologic: Denies headache(s) or weakness Allergic/Immunologic Allergic/Immunologic ED: Denies lip swelling or urticaria EXAM Physical Exam Const Vital Signs: 12/15/21 21:23 12/15/21 21:23 12/15/21 21:28 Temperature 98.3 F Temperature Source Temporal Pulse Rate 56 L 57 L Respiratory Rate 14 20 H Respiratory Effort Normal Blood Pressure 147/67 H 147/67 H Blood Pressure Mean 93 93 Pulse Ox 98 98 Oxygen Delivery Method Room Air Room Air 12/15/21 22:23 Temperature Temperature Source Pulse Rate 52 L Respiratory Rate 20 H Respiratory Effort Blood Pressure 154/71 H Blood Pressure Mean 98 Pulse Ox 98 Oxygen Delivery Method Room Air Positive well nourished and well developed General Appearance ED: well developed HEENT Reports normocephalic and head/scalp atraumatic Eyes PERRL and EOMs intact bilaterally Neck supple Chest Wall inspection of chest normal and palpation of chest normal Resp normal respiratory effort and clear to auscultation bilaterally Cardio regular rate and regular rhythm GI normal to inspection, nondistended, normoactive bowel sounds Palpation: soft Back/Spine no CVA tenderness Extremity normal to inspection Neuro oriented x3 Neuro Narrative: Mild left-sided weakness from prior stroke. Sensorium / Orientation: alert Psych mental status grossly normal Skin no rashes or lesions noted MDM MDM MDM Narrative Medical decision making narrative: Patient placed on monitoring and evaluation advisor. EKG and lab work obtained. Patient sent for CTA of the chest, abdomen, pelvis given his history of dissection with repair. Lab Data Attestation: I reviewed the patient's lab results. Labs: Laboratory Results - last 24 hr 12/15/21 12/15/21 22:03 22:03 WBC 7.4 RBC 4.85 Hgb 14.7 Hct 41.2 MCV 84.9 MCH 30.3 MCHC 35.7 RDW Std Deviation 36.7 RDW Coeff of Cheri 11.9 Plt Count 225 MPV 10.3 Immature Gran % (Auto) 0.300 Neut % (Auto) 72.2 H Lymph % (Auto) 19.6 [place] % (Auto) 6.4 Eos % (Auto) 1.1 Baso % (Auto) 0.4 Absolute Neuts (auto) 5.3 Absolute Lymphs (auto) 1.45 Nucleated RBC % 0 Sodium 142 Potassium 4.1 Chloride 111 H Carbon Dioxide 26.0 Anion Gap 5 BUN 19 H Creatinine 1.11 Estim Creat Clear Calc 74.24 Est GFR (MDRD) Af Amer 91 Est GFR (MDRD) Non-Af 75 BUN/Creatinine Ratio 17.1 Glucose 93 Calcium 8.9 Troponin I High Sens 6 Radiography Diagnostic Testing: Clinical Impression(s) from Imaging Studies Chest/Abdomen/Pelvis CTA 12/15/21 22:50 IMPRESSION: As compared to the exam from 05/22/2020, no significant interval change. Stable descending thoracic and abdominal aortic dissection with stable appearance of thoracic aortic stent graft as well as patent stent within the left common carotid artery and left subclavian artery. Lungs are clear. No evidence of pulmonary embolism. No acute findings in the abdomen or pelvis. Electronically Signed: Fawad Espinoza DO at 23:28 EDT Reading Location ID and State: [facility] / MD Tel , Service support , EKG Initial EKG: Attestation: I personally reviewed and interpreted this EKG as follows: Interpretation: Sinus Bradycardia (Sinus bradycardia 56 bpm. No acute ischemia.) Treatment and Re-Evaluation Narrative: On repeat evaluation patient resting comfortably. COVID test is negative. Lab work is unremarkable including a normal troponin. This was drawn with 6 hours of pain. CTA of the chest, abdomen, pelvis reveals no acute findings. Aortic dissection repair site appears stable. No evidence of PE. Patient is comfortable with this reassurance. He does state that he was working in the yard yesterday and may have just pulled a muscle. He will continue to monitor his symptoms. Return instructions provided. Discharge Plan Triage Chief Complaint: Chest Pain ED Provider: Nella Nolan Dx/Rx/DC Orders Clinical Impression: Chest pain Instructions: ED Chest Pain, Noncardiac Prescriptions: No Action aspirin 81 MG tablet,chewable 81 mg PO DAILY clopidogrel 75 MG tablet 75 mg PO DAILY multivitamin with iron 1 EACH tablet 1 ea PO DAILY omeprazole 20 MG capsule,delayed release(DR/EC) 20 mg PO DAILY metoprolol succinate 25 MG tablet extended release 24 hr 12.5 mg PO BID Rx Instructions: 25 mg PO 0.5 tablet at bedtime simvastatin 20 mg tablet 20 mg PO QPM Qty: 30 11RF Primary Care Provider: Nguyễn Stark Chi Referrals: Nguyễn Stark Chi, MD [Primary Care Provider] - 1-2 Weeks Disposition Disposition: Home, Self Care
[2021-12-15 22:09] LABS: Absolute Lymphocyte Count 1.45 X10^3/uL (0.83-4.51); Absolute Neutrophil Count 5.3 X10^3/uL (2.0-7.7); Basophil# 0.03 X10^3/uL; Basophil% 0.4 % (0-1); Eosinophil# 0.08 X10^3/uL; Eosinophils% 1.1 % (0-5); Hematocrit 41.2 % (40-54); Hemoglobin 14.7 g/dL (13.0-16.5); Lymphocyte # 1.45 X10^3/ul (0.83-4.51); Lymphocyte % 19.6 % (19-41); Mean Corp Hgb Conc 35.7 g/dL (32-36); Mean Corpuscular Hgb 30.3 pg (27.0-32.0); Mean Corpuscular Volume 84.9 fL (80-94); Mean Platelet Vol. 10.3 fl (6.2-12.0); Monocyte# 0.47 X10^3/uL; Monocyte% 6.4 % (0-10); NRBC Flagged by Analyzer 0 % (0-5); Neutrophil # 5.33 X10^3/uL (2.7-7.7); Neutrophil % 72.2 % (47-70); Platelet Count 225 K/mm3 (150-450); RBC Distribution Width CV 11.9 % (11.6-14.6); RBC Distribution Width SD 36.7 fl (35.1-43.9); Red Blood Count 4.85 M/mm3 (4.6-6.2); White Blood Count 7.4 K/mm3 (4.4-11.0)
[2021-12-15 22:23] VITALS: BP 154/71; PULSE 52; RESP 20; O2SAT 98
[2021-12-15 22:25] LABS: Anion Gap 5 (5-15); BUN 19 mg/dL (7-18); BUN/Creat Ratio 17.1 RATIO (10-20); Calcium,Total 8.9 mg/dL (8.5-10.1); Chloride 111 mmol/L (98-107); Creatinine, Serum 1.11 mg/dL (0.70-1.30); EST Glomerular Filtration Rate 75 mL/min (>60); Est Glom Filt Rate - Afr Amer 91 mL/min (>60); Estimated Creatinine Clearance 74.24 ml/min; Glucose 93 mg/dL (74-106); Potassium 4.1 mmol/L (3.5-5.1); Sodium Level 142 mmol/L (136-145); Troponin-I HS (w/2H Reflex) 6 pg/mL (3.0-78.0)
--- NOTE | 2021-12-15 22:50 | CT_ITS ---
INDICATION: chest/back pain -- H/O aneurysm repair EXAMINATION: CTA CHEST, ABDOMEN AND PELVIS WITH CONTRAST - TECHNIQUE: A CTA of the chest, abdomen, and pelvis is obtained with sagittal and coronal reconstructed MIP views. Three-dimensional surface rendered sequence of the thoracic and abdominal aorta was obtained. A radiation dose optimization technique was used for this scan. 100 mL of Isovue-370. Oral contrast: None. COMPARISON: 06/07/2020 FINDINGS: CT CHEST: THORACIC AORTA: Stable appearance of thoracic aortic dissection beginning in the aortic arch with dissection flap extending into the left common carotid artery and left subclavian artery with intact and patent stent graft. Stable thoracic aortic stent graft. ABDOMINAL AORTA: Stable dissection extending into the abdominal aorta and right common iliac artery. Overall, no significant change from prior. Major vessel takeoffs from the abdominal aorta are patent. LUNGS: The lungs are well-expanded without acute or chronic changes. No effusions or pneumothorax. MEDIASTINUM: The thyroid gland is normal. No mediastinal or hilar adenopathy. No evidence of pulmonary embolism. HEART: Heart is normal size. No pericardial effusion. Stable artificial aortic valve CT ABDOMEN AND PELVIS: LIVER: Stable small liver cyst, otherwise unremarkable liver. GALLBLADDER: The CBD is normal. Normal gallbladder. SPLEEN: Normal. PANCREAS: No masses or inflammation. ADRENAL GLANDS: Normal. KIDNEYS AND URETERS: The kidneys both enhance appropriately. There are normal size and shape. No hydronephrosis or nephrolithiasis. No renal masses or cysts. STOMACH: Normal. SMALL BOWEL: No abnormal distention of the small bowel. MESENTERY: No mesenteric inflammation. No ascites. COLON: Severe diverticulosis without acute diverticulitis. The colon otherwise is normal. There is a large fatty ileocecal valve. APPENDIX: Nonvisualized IVC: Normal. RETROPERITONEUM: No retroperitoneal lymphadenopathy. PELVIC STRUCTURES: Normal bladder. SOFT TISSUES ABDOMEN: The anterior abdominal wall is normal. SOFT TISSUE CHEST: The extrathoracic soft tissues are normal. BONES: No fractures or significant degenerative disease. CT/CTA Chst, Abd, Pel W and/or WO IMPRESSION: As compared to the exam from 05/22/2020, no significant interval change. Stable descending thoracic and abdominal aortic dissection with stable appearance of thoracic aortic stent graft as well as patent stent within the left common carotid artery and left subclavian artery. Lungs are clear. No evidence of pulmonary embolism. No acute findings in the abdomen or pelvis. Electronically Signed: Fawad Espinoza DO at 23:28 EDT ,
[2021-12-15] MEDS: 0.9% Normal Saline 1,000 ML 150 ML IV (23:00)
[2021-12-15 23:43] VITALS: BP 154/71; PULSE 56; RESP 20; O2SAT 97
[2021-12-16 00:06] LABS: Reflex Troponin-HS? (from REC) Y
== END 2021-12-15 23:44 | disposition home or self-care (01) ==
PROVIDERS: Emergency Provider Emergency Medicine; PCP Family Medicine Geriatric Medicine; Visit Provider Emergency Medicine
DX: R07.9 Chest pain, unspecified (principal); Z86.73 Personal history of transient ischemic attack (TIA), and cerebral infarction without residual deficits; Z87.891 Personal history of nicotine dependence
CPT/HCPCS: 71275; 74174; 80048; 84484; 85025; 87811; 93005; 99283; J7030; Q9967; A4216

== ENCOUNTER 2022-02-17 19:40 | Emergency (ER) | payer MEDICARE, MEDICAID, SELFPAY ==
[2022-02-17 19:41] VITALS: PULSE 55; RESP 16; TEMP 36.4; O2SAT 97; BMI 29.7
[2022-02-17 19:48] VITALS: BP 185/64; PULSE 53; RESP 14; O2SAT 100
--- NOTE | 2022-02-17 19:48 | EKG12_ITS ---
Test Reason : CP Blood Pressure : / mmHG Vent. Rate : 055 BPM Atrial Rate : 055 BPM P-R Int : 156 ms QRS Dur : 090 ms QT Int : 410 ms P-R-T Axes : 029 -45 044 degrees QTc Int : 392 ms Sinus bradycardia Left axis deviation Abnormal ECG Confirmed by DAWIT MCCOLLUM, LAURITA ([id number]), scientific publications editor NABEEL STALEY ([id number]) on 02/20/2022 11:34:28 AM Referred By: TED Confirmed By:LAURITA PASTOR MD
[2022-02-17 19:54] LABS: Absolute Lymphocyte Count 1.85 X10^3/uL (0.83-4.51); Absolute Neutrophil Count 4.9 X10^3/uL (2.0-7.7); Basophil# 0.02 X10^3/uL; Basophil% 0.3 % (0-1); Eosinophil# 0.08 X10^3/uL; Eosinophils% 1.1 % (0-5); Hematocrit 43.4 % (40-54); Lymphocyte # 1.85 X10^3/ul (0.83-4.51); Lymphocyte % 25.2 % (19-41); Mean Corp Hgb Conc 34.6 g/dL (32-36); Mean Corpuscular Hgb 29.4 pg (27.0-32.0); Mean Corpuscular Volume 84.9 fL (80-94); Mean Platelet Vol. 10.1 fl (6.2-12.0); Monocyte# 0.43 X10^3/uL; Monocyte% 5.9 % (0-10); NRBC Flagged by Analyzer 0 % (0-5); Neutrophil # 4.94 X10^3/uL (2.7-7.7); Neutrophil % 67.1 % (47-70); Platelet Count 265 K/mm3 (150-450); RBC Distribution Width CV 11.9 % (11.6-14.6); RBC Distribution Width SD 36.8 fl (35.1-43.9); Red Blood Count 5.11 M/mm3 (4.6-6.2); White Blood Count 7.4 K/mm3 (4.4-11.0)
--- NOTE | 2022-02-17 20:01 | EDS_ITS ---
HPI History of Present Illness Chief Complaint: Chest Pain Detail of Chief Complaint: )Left anterior sharp chest pain lasting for 1.75 hours. Informant: patient Onset/Context/Timing Onset: Hours Activity at onset: sudden and rest Timing: Continuous Quality: Positive for Sharp Location: Left Chest Current Severity: Mild Maximum Severity: Severe Worsened By: Nothing Relieved By: Nothing Associated Symptoms: Negative for Nausea, Vomiting, Diaphoresis, Dyspnea, Cough, Fever, Lightheadedness, Acid Reflux or Palpitations Narrative Narrative: Patient is a 46-year-old male with history of Balwinder type a aortic dissection. He states when he experienced pain from his aortic dissection was a ripping tearing pain and radiated to his back. He states has had the similar pain with numerous CAT scans with no determine etiology. Patient does have history of hypertension. He does have history of aortic valve replacement. There is no complaint of fever, chills night sweats. There is no complaint of upper respiratory symptoms. There is no GI symptoms he denies leg pain, swelling or discoloration. Prior Similar Symptoms: Yes (No determine etiology) Recent Illness/Hospitalization: No CVD Risk Factors: Positive for Hypertension and Hypercholesterolemia; Negative for Diabetes or Family History 1' </=55 PE Risk Factors: Negative for Recent Travel/Surgery, Recent Immobilization, Prior DVT or PE, Cancer or OCP + Smoking + >/=35 TAD Risk Factors: Negative for Marfan's Syndrome, Hypertension or Family History [facility] Medical History (Updated 02/17/22 @ 21:[address] Vinnie Tapia MD) Abdominal aortic aneurysm dissection Abdominal pain Afib Back problem Bicuspid aortic valve Constipation CVA (cerebral vascular accident) Diarrhea Dysautonomia-like disorder GERD (gastroesophageal reflux disease) Hearing problem Heart murmur History of carotid artery dissection Hyperlipidemia Nausea & vomiting Pneumonia Seizure Thoracoabdominal aortic dissection Home Medications aspirin 81 mg chewable tablet 81 mg PO DAILY 12/30/15 [History Last Taken Unknown] clopidogrel 75 mg tablet 75 mg PO DAILY 10/26/16 [History Last Taken Unknown] multivitamin with iron 1 ea PO DAILY 01/02/18 [History Last Taken Unknown] simvastatin 20 mg tablet 20 mg PO QPM #30 tabs 05/22/18 [Rx Last Taken Unknown] metoprolol succinate 25 mg tablet,extended release 24 hr 12.5 mg PO BID 02/05/20 [History Last Taken Unknown] omeprazole 20 mg capsule,delayed release 20 mg PO DAILY 02/05/20 [History Last Taken Unknown] Allergy/AdvReac Type Severity Reaction Status Date / Time oxycodone [From Percocet] Allergy Shortness Verified 02/17/22 19:41 of breath atorvastatin AdvReac Severe Dizziness Verified 02/17/22 19:41 citalopram [From Celexa] AdvReac erectile Verified 02/17/22 19:41 dysfunction Family History Father CVA (cerebral vascular accident) Heart disease Hypertension Myocardial infarction Grandfather CAD (coronary artery disease) Mother CVA (cerebral vascular accident) Hypertension Heart disease IPF (idiopathic pulmonary fibrosis) Other Cervical cancer Colon cancer Diabetes Ovarian cancer Surgical History History of aortic valve replacement (06/04/18) History of appendectomy History of bilateral carotid endarterectomy History of thoracic aortic aneurysm repair (05/2018) History of vasectomy Hx of myringotomy Social History Smoking Status: Former smoker alcohol intake: never substance use type: does not use caffeine: No what type of physical activity do you participate in: walking frequency: daily duration: < 15 minutes/day seatbelt use: always do you feel safe at home: Yes ROS ROS ED Constitutional Constitutional ED: Denies chills, fever(s), subjective, sweats or weight loss Eyes Eyes: Reports none ENT ENT ED: Denies ear pain, rhinorrhea or sore throat Cardiovascular Cardiovascular: Reports as per HPI Respiratory/Chest Respiratory/Chest: Denies cough, dyspnea or dyspnea on exertion Gastrointestinal Gastrointestinal: Denies abdominal pain, constipation, diarrhea, melena, nausea or vomiting Genitourinary Genitourinary ED: Denies dysuria, hematuria or urinary frequency Musculoskeletal Musculoskeletal: Denies arthralgias, back pain, myalgias or neck pain Integumentary Denies abscess, Abrasions or rash Neurologic Neurologic: Denies headache(s), paresthesias or weakness Endocrine Endocrinology: Denies cold intolerance or heat intolerance Hematologic/Lymphatic Hematologic/Lymphatic: Denies easy bleeding or easy bruising EXAM Physical Exam Const Vital Signs: 02/17/22 19:41 02/17/22 19:45 02/17/22 19:48 Temperature 97.6 F L Temperature Source Temporal Pulse Rate 55 L 53 L Respiratory Rate 16 14 Respiratory Effort Short of Breath Blood Pressure 185/64 H Blood Pressure Mean 104 Pulse Ox 97 100 Oxygen Delivery Method Room Air Room Air 02/17/22 20:45 Temperature Temperature Source Pulse Rate 54 L Respiratory Rate 15 Respiratory Effort Blood Pressure 146/82 H Blood Pressure Mean 103 Pulse Ox 97 Oxygen Delivery Method Room Air Positive well nourished; Negative for obese, cachectic, contractures or unkempt General Appearance ED: NAD; Negative for unkempt, cachectic, contractures or pallor Nutritional Appearance: Negative for cachectic or obese HEENT Reports TM's clear and moist mucous membranes normocephalic and atraumatic Tympanic Membrane ED: Yes TM's clear Eyes PERRL and EOMs intact bilaterally General Eye ED: Negative for pale conjunctiva or scleral icterus Neck no lymphadenopathy, supple and no JVD Chest Wall inspection of chest normal and palpation of chest normal Resp normal respiratory effort and clear to auscultation bilaterally Cardio regular rhythm, S1 normal heart sound, S2 normal heart sound and no murmurs Rate: bradycardia GI normal to inspection, nondistended, normoactive bowel sounds, soft to palpation, non-tender, non-distended and no masses; Negative for hepatosplenomegaly Back/Spine no CVA tenderness and no thoracic nor lumbar tenderness Extremity normal to inspection General Extremety ED: Negative for edema or pulses abnormal General Extremity: Negative for edema or pulses abnormal Neuro oriented x3, CN's II-XII intact bilaterally, no sensory deficits noted and gait normal Sensorium / Orientation: awake and alert Psych mental status grossly normal Appearance: Negative for unkempt Skin no rashes or lesions noted and no wounds General Skin Exam: Negative for jaundice or pallor MDM MDM MDM Narrative Medical decision making narrative: With atypical left-sided chest pain. History and physical not suggestive of cardiac, pulmonary or aortic dissection. Since patient does have risk factors for coronary disease will obtain EKG troponin and appropriate blood work. Lab Data Attestation: I reviewed the patient's lab results. Lab results narrative: CBC is unremarkable. Basic metabolic panels marked for slight elevation of creatinine 1.35. Troponin is 4 which is less than 7. Patient be discharged to home. Labs: Laboratory Results - last 24 hr 02/17/22 02/17/22 19:45 19:45 WBC 7.4 RBC 5.11 Hgb 15.0 Hct 43.4 MCV 84.9 MCH 29.4 MCHC 34.6 RDW Std Deviation 36.8 RDW Coeff of Cheri 11.9 Plt Count 265 MPV 10.1 Immature Gran % (Auto) 0.400 Neut % (Auto) 67.1 Lymph % (Auto) 25.2 [place] % (Auto) 5.9 Eos % (Auto) 1.1 Baso % (Auto) 0.3 Absolute Neuts (auto) 4.9 Absolute Lymphs (auto) 1.85 Nucleated RBC % 0 Sodium 142 Potassium 3.8 Chloride 106 Carbon Dioxide 27.0 Anion Gap 9 BUN 18 Creatinine 1.35 H Estim Creat Clear Calc 61.04 Est GFR (MDRD) Af Amer 73 Est GFR (MDRD) Non-Af 60 BUN/Creatinine Ratio 13.3 Glucose 100 Calcium 9.0 Troponin I High Sens 4 EKG Initial EKG: Attestation: I personally reviewed and interpreted this EKG as follows: Interpretation: Sinus Bradycardia (Ventricular rate is 55. There is a left axis. MA interval is 156 ms. Cures duration 90 ms. QT duration 410 ms. The morphology of the QRS complex is unchanged from prior dated December 15, 2021.) and Atrial Fibrillation Discharge Plan Triage Chief Complaint: Chest Pain ED Provider: Vinnie Tapia Dx/Rx/DC Orders Clinical Impression: Acute left-sided thoracic back pain, Hyperlipidemia, History of dissection of thoracic aorta, History of cerebrovascular accident Instructions: ED Chest Pain, Noncardiac Prescriptions: No Action aspirin 81 MG tablet,chewable 81 mg PO DAILY clopidogrel 75 MG tablet 75 mg PO DAILY multivitamin with iron 1 EACH tablet 1 ea PO DAILY omeprazole 20 MG capsule,delayed release(DR/EC) 20 mg PO DAILY metoprolol succinate 25 MG tablet extended release 24 hr 12.5 mg PO BID Rx Instructions: 25 mg PO 0.5 tablet at bedtime simvastatin 20 mg tablet 20 mg PO QPM Qty: 30 11RF Primary Care Provider: Nguyễn Stark Chi Referrals: Nguyễn Stark Chi, MD [Primary Care Provider] - As Needed Disposition Disposition: Home, Self Care
[2022-02-17 20:12] LABS: Anion Gap 9 (5-15); BUN 18 mg/dL (7-18); BUN/Creat Ratio 13.3 RATIO (10-20); Chloride 106 mmol/L (98-107); Creatinine, Serum 1.35 mg/dL (0.70-1.30); EST Glomerular Filtration Rate 60 mL/min (>60); Est Glom Filt Rate - Afr Amer 73 mL/min (>60); Estimated Creatinine Clearance 61.04 ml/min; Glucose 100 mg/dL (74-106); Potassium 3.8 mmol/L (3.5-5.1); Sodium Level 142 mmol/L (136-145); Troponin-I HS 4 pg/mL (3.0-78.0)
[2022-02-17 20:45] VITALS: BP 146/82; PULSE 54; RESP 15; O2SAT 97
[2022-02-17 21:41] VITALS: BP 147/74; PULSE 56; RESP 15; O2SAT 96; O2SAT 98
== END 2022-02-17 21:42 | disposition home or self-care (01) ==
PROVIDERS: Emergency Provider Emergency Medicine; PCP Family Medicine Geriatric Medicine; Visit Provider Emergency Medicine
DX: M54.6 Pain in thoracic spine (principal); I48.91 Unspecified atrial fibrillation; E78.5 Hyperlipidemia, unspecified; I10 Essential (primary) hypertension; K21.9 Gastro-esophageal reflux disease without esophagitis; Z87.891 Personal history of nicotine dependence; Z86.73 Personal history of transient ischemic attack (TIA), and cerebral infarction without residual deficits; Z79.82 Long term (current) use of aspirin; Z79.899 Other long term (current) drug therapy
CPT/HCPCS: 80048; 84484; 85025; 93005; 99283; A4216

== ENCOUNTER → 2022-02-19 | Outpatient (CLI) | payer MEDICARE, MEDICAID, SELFPAY ==
[2022-02-19 18:09] LABS: Absolute Lymphocyte Count 1.47 X10^3/uL (0.83-4.51); Absolute Neutrophil Count 5.6 X10^3/uL (2.0-7.7); Basophil# 0.03 X10^3/uL; Basophil% 0.4 % (0-1); Eosinophil# 0.05 X10^3/uL; Eosinophils% 0.7 % (0-5); Hematocrit 45.2 % (40-54); Hemoglobin 15.6 g/dL (13.0-16.5); Lymphocyte # 1.47 X10^3/ul (0.83-4.51); Lymphocyte % 19.1 % (19-41); Mean Corp Hgb Conc 34.5 g/dL (32-36); Mean Platelet Vol. 10.2 fl (6.2-12.0); Monocyte# 0.45 X10^3/uL; Monocyte% 5.9 % (0-10); NRBC Flagged by Analyzer 0 % (0-5); Neutrophil # 5.64 X10^3/uL (2.7-7.7); Neutrophil % 73.2 % (47-70); Platelet Count 266 K/mm3 (150-450); RBC Distribution Width CV 12.2 % (11.6-14.6); Red Blood Count 5.38 M/mm3 (4.6-6.2); White Blood Count 7.7 K/mm3 (4.4-11.0)
[2022-02-19 18:45] LABS: ALB/GLOB Ratio 1.3 RATIO (0.9-2.4); AST(SGOT) 16 U/L (15-37); Alanine Aminotransfer ALT/SGPT 26 U/L (16-61); Albumin, Serum 3.9 g/dL (3.2-5.0); Alkaline Phosphatase 100 U/L (45-117); Amylase 71 U/L (25-115); Anion Gap 7 (5-15); BUN 16 mg/dL (7-18); Calcium,Total 9.1 mg/dL (8.5-10.1); Chloride 108 mmol/L (98-107); Creatinine, Serum 1.07 mg/dL (0.70-1.30); EST Glomerular Filtration Rate 79 mL/min (>60); Est Glom Filt Rate - Afr Amer 95 mL/min (>60); Globulin 3.1 g/dL (2.2-4.2); Glucose 83 mg/dL (74-106); Lipase 96 U/L (73-393); Potassium 3.7 mmol/L (3.5-5.1); Sodium Level 141 mmol/L (136-145)
== END | disposition home or self-care (01) ==
LOC: LAB 17:52
PROVIDERS: PCP Family Medicine Geriatric Medicine; Referring Provider Family Medicine Geriatric Medicine; Visit Provider Family Medicine Geriatric Medicine
DX: R10.9 Unspecified abdominal pain (principal)
CPT/HCPCS: 36415; 80053; 82150; 83690; 85025

== ENCOUNTER → 2022-02-20 | Outpatient (CLI) | payer MEDICARE, MEDICAID, SELFPAY ==
--- NOTE | 2022-02-20 10:28 | CT_ITS ---
STUDY: CT ABDOMEN AND PELVIS WITH CONTRAST REASON FOR EXAM: Male, 46 years old. ABD PAIN. History of a thoracic aortic aneurysm and carotid dissection. RADIATION DOSAGE (If Supplied By Facility): CTDIvol = ( 14.95 ) mGy, DLP = ( 851.13 ) mGycm TECHNIQUE: Transaxial images were obtained from the dome of the diaphragm to the symphysis pubis with oral contrast. Oral and amp; IV Gastrografin and amp; 100mL Isovue-300 was administered. Sagittal and coronal images were reconstructed. Individualized dose optimization techniques were used for this CT. COMPARISON: Comparison is made with prior study dated 05/29/2020. FINDINGS: The visualized lung bases are unremarkable. The visualized portions of the heart are within normal limits. There is decreased attenuation of the liver consistent with steatosis. Scattered small hepatic cysts. These are unchanged. Normal gallbladder and extrahepatic biliary system. Normal spleen. Normal pancreas. Normal bilateral adrenal glands. Normal right kidney. Normal left kidney. Normal visualized stomach. Normal small intestine. There is evidence of a thickening of the sigmoid bowel with evidence of a diverticulosis. No radiographic evidence of diverticulitis is present at this time. The patient is status post appendectomy. There is evidence of intimal dissection of the visualized distal portion of the thoracic aorta extending into the abdominal aorta and into the right common iliac artery. Normal inferior vena cava. Normal retroperitoneum. Normal urinary bladder. The prostate measures 4.9 cm x 3.9 cm. Small left inguinal hernia containing fat. Normal osseous structures. CT/Abdomen/Pelvis WITH Contrast IMPRESSION: Stable appearance of the abdominal aortic dissection extending from the visualized portion of the distal thoracic aorta down to right common iliac artery. Fatty infiltration of the liver. Stable hepatic cysts. Stable thickening of the sigmoid colon although no inflammatory changes are seen within the sigmoid colon at this time. This has improved as compared with prior study. Small left Containing fat. Electronically Signed: Simon Loera MD at 13:26 EST ,
== END | disposition home or self-care (01) ==
LOC: CT 10:26
PROVIDERS: PCP Family Medicine Geriatric Medicine; Referring Provider Family Medicine Geriatric Medicine; Visit Provider Family Medicine Geriatric Medicine
DX: R68.83 Chills (without fever) (principal); R10.9 Unspecified abdominal pain
CPT/HCPCS: 74177; 87635; 87804; 87807; C9803; Q9967; U0003; U0005

== ENCOUNTER 2022-02-26 14:30 | Emergency (ER) | payer MEDICARE, MEDICAID, SELFPAY ==
[2022-02-26] VITALS (7 sets, daily range): BP systolic 120–145; BP diastolic 68–89; PULSE 48–74; RESP 15–20; TEMP 36.4; O2SAT 96–100; BMI 28.2
--- NOTE | 2022-02-26 15:43 | EKG12_ITS ---
Test Reason : CP Blood Pressure : / mmHG Vent. Rate : 063 BPM Atrial Rate : 063 BPM P-R Int : 146 ms QRS Dur : 086 ms QT Int : 394 ms P-R-T Axes : 026 -28 034 degrees QTc Int : 403 ms Normal sinus rhythm Normal ECG Confirmed by DAWIT MCCOLLUM, LAURITA ([id number]), industrial editor AMNADA ROBLES ([id number]) on 02/27/2022 2:41:14 PM Referred By: GOPI/OLIVA Confirmed By:LAURITA PASTOR MD
--- NOTE | 2022-02-26 15:44 | EDS_ITS ---
HPI History of Present Illness Chief Complaint: Chest Pain [facility] Medical History Abdominal aortic aneurysm dissection Abdominal pain Afib Back problem Bicuspid aortic valve Constipation CVA (cerebral vascular accident) Diarrhea Dysautonomia-like disorder GERD (gastroesophageal reflux disease) Hearing problem Heart murmur History of carotid artery dissection Hyperlipidemia Nausea & vomiting Pneumonia Seizure Thoracoabdominal aortic dissection Home Medications aspirin 81 mg chewable tablet 81 mg PO DAILY 12/30/15 [History Last Taken Unknown] clopidogrel 75 mg tablet 75 mg PO DAILY 10/26/16 [History Last Taken Unknown] multivitamin with iron 1 ea PO DAILY 01/02/18 [History Last Taken Unknown] simvastatin 20 mg tablet 20 mg PO QPM #30 tabs 05/22/18 [Rx Last Taken Unknown] metoprolol succinate 25 mg tablet,extended release 24 hr 12.5 mg PO BID 02/05/20 [History Last Taken Unknown] omeprazole 20 mg capsule,delayed release 20 mg PO DAILY 02/05/20 [History Last Taken Unknown] Allergy/AdvReac Type Severity Reaction Status Date / Time oxycodone [From Percocet] Allergy Shortness Verified 02/26/22 14:32 of breath atorvastatin AdvReac Severe Dizziness Verified 02/26/22 14:32 citalopram [From Celexa] AdvReac erectile Verified 02/26/22 14:32 dysfunction Family History Father CVA (cerebral vascular accident) Heart disease Hypertension Myocardial infarction Grandfather CAD (coronary artery disease) Mother CVA (cerebral vascular accident) Hypertension Heart disease IPF (idiopathic pulmonary fibrosis) Other Cervical cancer Colon cancer Diabetes Ovarian cancer Surgical History History of aortic valve replacement (06/04/18) History of appendectomy History of bilateral carotid endarterectomy History of thoracic aortic aneurysm repair (05/2018) History of vasectomy Hx of myringotomy Social History Smoking Status: Former smoker alcohol intake: never substance use type: does not use caffeine: No what type of physical activity do you participate in: walking frequency: daily duration: < 15 minutes/day seatbelt use: always do you feel safe at home: Yes ROS ROS ED ROS Narrative Constitutional: No fever, no chills. HEENT: No sore throat. No neck pain. No loss of vision. No rhinorrhea. Cardiovascular: Positive midsternal chest pain. No palpitations. No pedal edema. Respiratory: No cough, no shortness of breath. Abdominal: No abdominal pain. No nausea. No vomiting. Genitourinary: No dysuria. No hematuria. Musculoskeletal: No myalgias. No arthralgias. Neurologic: No headaches. No dizziness. No lightheadedness. Skin: No rash. No change in color. Psychiatric: No depression. No anxiety. EXAM Physical Exam Narrative Exam Narrative: Afebrile. Vital signs noted. HEENT: Normocephalic. Atraumatic. PERRL, EOMI. Neck soft and supple. No point tenderness or step off. Cardiovascular: Regular rate and rhythm. Positive aortic valve sound, rubs, or gallops appreciated. Respiratory: No tachypnea. Lungs clear to auscultation bilaterally. Gastrointestinal: Abdomen soft, nontender, with normoactive bowel sounds. No rebound or guarding. Neurological: Awake. Alert. Nonfocal, nonlateralizing. Skin: No rash. Normal color. No pallor. Musculoskeletal: No pedal edema. Full range of motion extremities. Const Vital Signs: 02/26/22 14:32 02/26/22 15:41 02/26/22 15:41 Temperature 97.5 F L Temperature Source Temporal Pulse Rate 61 51 L Respiratory Rate 15 15 Respiratory Effort Normal Non-Labored Blood Pressure 145/75 H Blood Pressure Mean 98 Pulse Ox 100 98 Oxygen Delivery Method Room Air Room Air 02/26/22 15:43 02/26/22 16:06 02/26/22 17:20 Temperature Temperature Source Pulse Rate 48 L Respiratory Rate 16 20 H Respiratory Effort Blood Pressure 145/89 H 120/73 Blood Pressure Mean 107 88 Pulse Ox 98 96 Oxygen Delivery Method Room Air Room Air 02/26/22 18:16 Temperature Temperature Source Pulse Rate 51 L Respiratory Rate 17 Respiratory Effort Blood Pressure 142/73 H Blood Pressure Mean 96 Pulse Ox 99 Oxygen Delivery Method Room Air MDM MDM MDM Narrative Medical decision making narrative: Comprehensive work-up was pursued. EKG demonstrates normal sinus rhythm at 63 bpm without ectopy or acute ST changes. No STEMI. Hattori work is grossly unremarkable with a normal CBC, BMP shows chloride of 108 otherwise unremarkable. Initial high-sensitivity troponin normal at 7, repeat is normal at 6. Lipase slightly elevated at 330 but still within normal limits. Chest x- ray reviewed by myself shows no acute process, no widened mediastinum. At this point in time I am and low concern for aortic dissection. I feel he can be discharged safely home with continued work-up by his primary care provider. Return instructions were reviewed. Disposition is discharged home in stable condition. Lab Data Attestation: I reviewed the patient's lab results. Labs: Laboratory Results - last 24 hr 02/26/22 02/26/22 02/26/22 15:50 15:50 18:08 WBC 6.2 RBC 5.35 Hgb 15.4 Hct 45.4 MCV 84.9 MCH 28.8 MCHC 33.9 RDW Std Deviation 37.1 RDW Coeff of Cheri 12.0 Plt Count 238 MPV 10.7 Immature Gran % (Auto) 0.600 Neut % (Auto) 75.0 H Lymph % (Auto) 16.6 L [place] % (Auto) 6.7 Eos % (Auto) 0.5 Baso % (Auto) 0.6 Absolute Neuts (auto) 4.6 Absolute Lymphs (auto) 1.02 Nucleated RBC % 0 Sodium 142 Potassium 4.2 Chloride 108 H Carbon Dioxide 28.0 Anion Gap 6 BUN 13 Creatinine 0.97 Estim Creat Clear Calc 84.96 Est GFR (MDRD) Af Amer 107 Est GFR (MDRD) Non-Af 88 BUN/Creatinine Ratio 13.4 Glucose 88 Calcium 9.2 Troponin I High Sens 7 6 Lipase 330 Radiography Diagnostic Testing: Clinical Impression(s) from Imaging Studies Chest X-Ray 02/26/22 15:50 IMPRESSION: No acute disease Electronically Signed: Kevin Way MD at 16:11 EST Reading Location ID and State: [facility] / [place] , Service support , Treatment and Re-Evaluation Narrative: 46-year-old male past medical history of previous aortic dissection that was replaced twice presents with chest pain that he had today in the middle. Is been constant. Of note, he was seen in the emergency department a week ago Friday where he had a full work-up of his aortic dissection. Additionally, he states has been following up with Dr. Stark regarding the pain and he had a CAT scan of his abdomen done on Friday. While he always has pain with his history of aortic dissection, he states that the pain in the middle of his chest was new. He denies any nausea or vomiting. No diaphoresis, no exacerbating or alleviating factors. Discharge Plan Triage Chief Complaint: Chest Pain ED Provider: Kevin Telles Dx/Rx/DC Orders Clinical Impression: Chest pain, History of aortic dissection Instructions: ED Chest Pain, Uncertain Cause Prescriptions: No Action aspirin 81 MG tablet,chewable 81 mg PO DAILY clopidogrel 75 MG tablet 75 mg PO DAILY multivitamin with iron 1 EACH tablet 1 ea PO DAILY omeprazole 20 MG capsule,delayed release(DR/EC) 20 mg PO DAILY metoprolol succinate 25 MG tablet extended release 24 hr 12.5 mg PO BID Rx Instructions: 25 mg PO 0.5 tablet at bedtime simvastatin 20 mg tablet 20 mg PO QPM Qty: 30 11RF Primary Care Provider: Nguyễn Stark Chi Referrals: Nguyễn Stark Chi, MD [Primary Care Provider] - 1-2 Days if not improving Disposition Disposition: Home, Self Care
--- NOTE | 2022-02-26 15:50 | RAD_ITS ---
STUDY: X-RAY CHEST REASON FOR EXAM: Male, 46 years old. chest pain TECHNIQUE: Single frontal view of the chest. COMPARISON: CTA chest December 15, 2021 and chest x-ray June 07, 2020 FINDINGS: Sternotomy wires and prosthetic heart valve again noted. Endovascular stent noted in the aortic arch. Surgical clips right axilla. The lungs are clear and expanded. There is no demonstrated pleural abnormality. Normal size heart. Normal mediastinum and antony. Normal visualized pulmonary arteries. Normal visualized aortic arch and descending thoracic aorta. Normal visualized thoracic spine. Normal visualized ribs, clavicles, and shoulders. There is no demonstrated abnormality of the visualized soft tissue structures of the upper abdomen. RAD/Chest 1 View (Portable) IMPRESSION: No acute disease Electronically Signed: Kevin Way MD at 16:11 EST ,
[2022-02-26 16:12] LABS: Absolute Lymphocyte Count 1.02 X10^3/uL (0.83-4.51); Absolute Neutrophil Count 4.6 X10^3/uL (2.0-7.7); Basophil# 0.04 X10^3/uL; Basophil% 0.6 % (0-1); Eosinophil# 0.03 X10^3/uL; Eosinophils% 0.5 % (0-5); Hematocrit 45.4 % (40-54); Hemoglobin 15.4 g/dL (13.0-16.5); Lymphocyte # 1.02 X10^3/ul (0.83-4.51); Lymphocyte % 16.6 % (19-41); Mean Corp Hgb Conc 33.9 g/dL (32-36); Mean Corpuscular Hgb 28.8 pg (27.0-32.0); Mean Corpuscular Volume 84.9 fL (80-94); Mean Platelet Vol. 10.7 fl (6.2-12.0); Monocyte# 0.41 X10^3/uL; Monocyte% 6.7 % (0-10); NRBC Flagged by Analyzer 0 % (0-5); Neutrophil # 4.62 X10^3/uL (2.7-7.7); Platelet Count 238 K/mm3 (150-450); RBC Distribution Width SD 37.1 fl (35.1-43.9); Red Blood Count 5.35 M/mm3 (4.6-6.2); White Blood Count 6.2 K/mm3 (4.4-11.0)
[2022-02-26 16:33] LABS: Anion Gap 6 (5-15); BUN 13 mg/dL (7-18); BUN/Creat Ratio 13.4 RATIO (10-20); Calcium,Total 9.2 mg/dL (8.5-10.1); Chloride 108 mmol/L (98-107); Creatinine, Serum 0.97 mg/dL (0.70-1.30); EST Glomerular Filtration Rate 88 mL/min (>60); Est Glom Filt Rate - Afr Amer 107 mL/min (>60); Estimated Creatinine Clearance 84.96 ml/min; Glucose 88 mg/dL (74-106); Lipase 330 U/L (73-393); Potassium 4.2 mmol/L (3.5-5.1); Sodium Level 142 mmol/L (136-145); Troponin-I HS (w/2H Reflex) 7 pg/mL (3.0-78.0)
[2022-02-26 18:04] LABS: Reflex Troponin-HS? (from REC) Y
[2022-02-26 18:39] LABS: Troponin-I HS 6 pg/mL (3.0-78.0)
== END 2022-02-26 18:52 | disposition home or self-care (01) ==
PROVIDERS: Emergency Provider Emergency Medicine; PCP Family Medicine Geriatric Medicine; Visit Provider Emergency Medicine
DX: R07.9 Chest pain, unspecified (principal); E78.5 Hyperlipidemia, unspecified; K21.9 Gastro-esophageal reflux disease without esophagitis; Z86.73 Personal history of transient ischemic attack (TIA), and cerebral infarction without residual deficits; Z79.82 Long term (current) use of aspirin; Z79.899 Other long term (current) drug therapy; Z87.891 Personal history of nicotine dependence
CPT/HCPCS: 36415; 71045; 80048; 83690; 84484; 85025; 93005; 99284; A4216

== ENCOUNTER 2022-03-24 19:56 | Emergency (ER) | payer MEDICARE, MEDICAID, SELFPAY ==
[2022-03-24 19:57] VITALS: BP 164/77; PULSE 59; RESP 16; TEMP 36.8; O2SAT 100; BMI 29.0
[2022-03-24 20:12] VITALS: BMI 29.0
--- NOTE | 2022-03-24 20:12 | CT_ITS ---
STUDY: CT BRAIN WITHOUT CONTRAST REASON FOR EXAM: Male, 46 years old. Bilateral facial numbness RADIATION DOSAGE (If Supplied By Facility): CTDIvol = ( 44.99 ) mGy, DLP = ( 796.11 ) mGycm TECHNIQUE: Transaxial CT imaging of the brain was performed without administration of intravenous contrast material. Individualized dose optimization techniques were used for this CT. COMPARISON: 06/26/2020 FINDINGS: Normal soft tissue structures. Normal calvarium. Normal size ventricles and extra-axial spaces for the patient''s age. Normal white matter tracts of the cerebral hemispheres. Small chronic lacunar infarct of the right basal ganglia. Normal brainstem. Normal cerebellum. There is no intracranial hemorrhage. There are no findings of an acute ischemic infarction. Normal visualized paranasal sinuses. CT/Brain/Head without Contrast IMPRESSION: No change from 06/26/2020. Electronically Signed: Marco Antonio Quiros MD at 20:52 EST ,
[2022-03-24 20:34] LABS: Anion Gap 5 (5-15); BUN 15 mg/dL (7-18); BUN/Creat Ratio 14.3 RATIO (10-20); Calcium,Total 9.1 mg/dL (8.5-10.1); Chloride 109 mmol/L (98-107); Creatinine, Serum 1.05 mg/dL (0.70-1.30); EST Glomerular Filtration Rate 80 mL/min (>60); Est Glom Filt Rate - Afr Amer 97 mL/min (>60); Estimated Creatinine Clearance 78.48 ml/min; Glucose 109 mg/dL (74-106); Potassium 4.2 mmol/L (3.5-5.1); Sodium Level 142 mmol/L (136-145)
[2022-03-24 22:33] VITALS: PULSE 52; RESP 19
--- NOTE | 2022-03-24 22:33 | EX.ED.DYSGE1 ---
HPI History of Present Illness Chief Complaint: Neuro S/Sx Detail of Chief Complaint: Numbness buccal surface upper and lower lips and division between the secon Informant: patient Onset/Context/Timing Onset: Today and Hours (Since early this morning) Context: Sudden Onset Timing: Continuous Quality: Numbness Location: Buccal side of upper and lower lip and face bilaterally at the division of Current Severity: Mild Maximum Severity: Mild Worsened by: Nothing Relieved by: Nothing Associated Symptoms Associated Symptoms: No other symptoms Narrative Narrative: Is a 46-year-old male with a significant past medical history which includes stroke, aortic dissection, right and left carotid artery surgery, who presents with upper and lower lip numbness on the buccal surface and where the second and third division of the trigeminal nerve demarcate he complains of numbness. This has been constant. Nothing makes it better or worse. He has no trouble speech or swallowing. He denies any new neurologic symptoms. He has residual deficit of the left upper extremity with contractures. Yesterday he complained of neck pain and felt his head was going to pop off and had severe headache. He reports mild photophobia. He denies double vision, blurred vision loss of vision. [place] decreased hearing in his ears. He denies chest pain, shortness of breath. He denies nausea or vomiting. He denies problems with coordination or balance. He denies problems with speech or swallowing. There is no family history of subarachnoid hemorrhage. Prior similar symptoms: No Recent Illness/Hospitalization: No [facility] Medical History Abdominal aortic aneurysm dissection Abdominal pain Afib Back problem Bicuspid aortic valve Constipation CVA (cerebral vascular accident) Diarrhea Dysautonomia-like disorder GERD (gastroesophageal reflux disease) Hearing problem Heart murmur History of carotid artery dissection Hyperlipidemia Nausea & vomiting Pneumonia Seizure Thoracoabdominal aortic dissection Home Medications aspirin 81 mg chewable tablet 81 mg PO DAILY 12/30/15 [History Last Taken Unknown] clopidogrel 75 mg tablet 75 mg PO DAILY 10/26/16 [History Last Taken Unknown] simvastatin 20 mg tablet 20 mg PO QPM #30 tabs 05/22/18 [Rx Last Taken Unknown] metoprolol succinate 25 mg tablet,extended release 24 hr 12.5 mg PO BID 02/05/20 [History Last Taken Unknown] omeprazole 20 mg capsule,delayed release 20 mg PO DAILY 02/05/20 [History Last Taken Unknown] Allergy/AdvReac Type Severity Reaction Status Date / Time oxycodone [From Percocet] Allergy Shortness Verified 03/24/22 19:59 of breath atorvastatin AdvReac Severe Dizziness Verified 03/24/22 19:59 citalopram [From Celexa] AdvReac erectile Verified 03/24/22 19:59 dysfunction Family History Father CVA (cerebral vascular accident) Heart disease Hypertension Myocardial infarction Grandfather CAD (coronary artery disease) Mother CVA (cerebral vascular accident) Hypertension Heart disease IPF (idiopathic pulmonary fibrosis) Other Cervical cancer Colon cancer Diabetes Ovarian cancer Surgical History History of aortic valve replacement (06/04/18) History of appendectomy History of bilateral carotid endarterectomy History of thoracic aortic aneurysm repair (05/2018) History of vasectomy Hx of myringotomy Social History (Updated 03/24/22 @ 22:[address] Vinnie Tapia MD) household members: none Smoking Status: Former smoker alcohol intake: never substance use type: does not use caffeine: No what type of physical activity do you participate in: walking frequency: daily duration: < 15 minutes/day seatbelt use: always do you feel safe at home: Yes ROS ROS ED Constitutional Constitutional ED: Denies chills, fever(s), subjective, sweats or weight loss Eyes Eyes: Denies blurry vision, change in vision or diplopia ENT ENT ED: Denies ear pain, rhinorrhea or sore throat Cardiovascular Cardiovascular: Denies chest pain, orthopnea, palpitations, paroxysmal nocturnal dyspnea or racing heartbeat Respiratory/Chest Respiratory/Chest: Denies cough, dyspnea, dyspnea on exertion, orthopnea, paroxysmal nocturnal dyspnea or sputum Gastrointestinal Gastrointestinal: Denies abdominal pain, nausea or vomiting Genitourinary Genitourinary ED: Denies dysuria, hematuria or urinary frequency Musculoskeletal Musculoskeletal: Reports neck pain; Denies arthralgias, back pain or myalgias Integumentary Denies Abrasions or rash Neurologic Neurologic: Reports headache(s) and paresthesias; Denies weakness Psychiatric Psychiatric: Denies anxiety or depression Hematologic/Lymphatic Hematologic/Lymphatic: Reports systems reviewed and no addt'l complaints, except as documented Allergic/Immunologic Allergic/Immunologic ED: Denies mouth swelling or tongue swelling EXAM Physical Exam Const Vital Signs: 03/24/22 19:57 03/24/22 22:33 Temperature 98.3 F Temperature Source Temporal Pulse Rate 59 L 52 L Respiratory Rate 16 19 H Blood Pressure 164/77 H Blood Pressure Mean 106 Pulse Ox 100 Oxygen Delivery Method Room Air Positive well nourished and well developed General Appearance ED: well developed and NAD; Negative for pallor HEENT Reports moist mucous membranes HEENT Narrative: There is no evidence of angioedema. Uvula midline. No deviation tongue or protrusion. No erythema or exudate the posterior pharynx. No evidence of dental pathology. Ears appear normal. TMs are normal. Nares patent. Negative's [place] sign. Eyes PERRL and EOMs intact bilaterally Eyes Narrative: There is no nystagmus. There is no APD. There is no visual field cut. General Eye ED: Negative for pale conjunctiva or scleral icterus Neck no lymphadenopathy, supple and no JVD Neck Narrative: There is no tenderness of the right or left carotid artery. There is no bruits noted Chest Wall inspection of chest normal and palpation of chest normal Resp normal respiratory effort and clear to auscultation bilaterally Cardio regular rate, regular rhythm, S1 normal heart sound, S2 normal heart sound and no murmurs GI normal to inspection, nondistended, normoactive bowel sounds, non-tender, non-distended and no masses; Negative for hepatosplenomegaly Extremity Extremity Narrative: Contracture and motor deficit and sensory deficit left upper extremity due to prior stroke. Neuro oriented x3, CN's II-XII intact bilaterally and No no sensory deficits noted Sensorium / Orientation: alert Motor Exam: Negative for strength 5/5 throughout Psych mental status grossly normal Skin no rashes or lesions noted, no wounds and skin turgor normal General Skin Exam: Negative for jaundice or pallor MDM MDM MDM Narrative Medical decision making narrative: Patient with unusual presentation. CT of the head was obtained in light of his significant past medical history and concern for subarachnoid hemorrhage since he complained of significant headache. Basic metabolic panel was obtained to assess for hyponatremia or hypokalemia which may explain his unusual paresthesia. Lab Data Attestation: I reviewed the patient's lab results. Lab results narrative: On room workable Labs: Laboratory Results - last 24 hr 03/24/22 20:16 Sodium 142 Potassium 4.2 Chloride 109 H Carbon Dioxide 28.0 Anion Gap 5 BUN 15 Creatinine 1.05 Estim Creat Clear Calc 78.48 Est GFR (MDRD) Af Amer 97 Est GFR (MDRD) Non-Af 80 BUN/Creatinine Ratio 14.3 Glucose 109 H Calcium 9.1 Radiography Diagnostic Testing: Clinical Impression(s) from Imaging Studies Brain CT 03/24/22 20:12 IMPRESSION: No change from 06/26/2020. Electronically Signed: Marco Antonio Quiros MD at 20:52 EST , The CT the CT of the head was reviewed by me and interpreted by radiologist as negative. Discharge Plan Triage Chief Complaint: Neuro S/Sx ED Provider: Vinnie Tapia Dx/Rx/DC Orders Clinical Impression: Facial paresthesia Instructions: ED Paraesthesias Prescriptions: No Action aspirin 81 MG tablet,chewable 81 mg PO DAILY clopidogrel 75 MG tablet 75 mg PO DAILY omeprazole 20 MG capsule,delayed release(DR/EC) 20 mg PO DAILY metoprolol succinate 25 MG tablet extended release 24 hr 12.5 mg PO BID Rx Instructions: 25 mg PO 0.5 tablet at bedtime simvastatin 20 mg tablet 20 mg PO QPM Qty: 30 11RF Primary Care Provider: Nguyễn Stark Chi Referrals: Nguyễn Stark Chi, MD [Primary Care Provider] - 1-2 Days if not improving Disposition Disposition: Home, Self Care Discharge Date/Time: 03/24/22 22:48
== END 2022-03-24 22:48 | disposition home or self-care (01) ==
PROVIDERS: Emergency Provider Emergency Medicine; PCP Family Medicine Geriatric Medicine; Visit Provider Emergency Medicine
DX: R20.2 Paresthesia of skin (principal); E78.5 Hyperlipidemia, unspecified; Z87.891 Personal history of nicotine dependence; H91.90 Unspecified hearing loss, unspecified ear; R51.9 Headache, unspecified; Z86.73 Personal history of transient ischemic attack (TIA), and cerebral infarction without residual deficits
CPT/HCPCS: 70450; 80048; 99282; A4216

== ENCOUNTER → 2022-04-03 | Outpatient (CLI) | payer MEDICARE, MEDICAID, SELFPAY ==
--- NOTE | 2022-04-03 12:58 | CDU_ITS ---
Reason For Study: Facial numbness Rt. Velocities/BP Lt. Velocities/BP Prox CCA 135.7/11.5 cm/sec. Prox CCA 187.4/13.7 cm/sec. Mid CCA 115.6/15.2 cm/sec. Mid CCA 161.5/18.9 cm/sec. Dist CCA 99.8/15.1 cm/sec. Dist CCA 112.2/13.7 cm/sec. Prox ICA 75.3/11.4 cm/sec. Prox ICA 53.4/13.8 cm/sec. Mid ICA 92.5/20 cm/sec. Mid ICA 73.2/22.6 cm/sec. Dist ICA 81.4/18.8 cm/sec. Dist ICA 42.4/14.9 cm/sec. Rt. ICA/CCA = 0.80. Lt. ICA/CCA = 0.45. Prox ECA 137.5/7.9 cm/sec. Prox ECA 81.5/6.6 cm/sec. Rt. Vert. 77.7/12.6 cm/sec. Lt. Vert. 52.9/13.6 cm/sec. Right Extracranial There is intimal thickening but no significant atherosclerotic plaque noted in the right common carotid artery. There is intimal thickening but no significant atherosclerotic plaque noted in the right internal carotid artery. There is intimal thickening but no significant atherosclerotic plaque noted in the right external carotid artery. Antegrade flow is noted in the right vertebral artery. Left Extracranial There is intimal thickening but no significant atherosclerotic plaque noted in the left common carotid artery. Chronic dissection noted in the left CCA with bidirectional flow. There is intimal thickening but no significant atherosclerotic plaque noted in the left internal carotid artery. There is intimal thickening but no significant atherosclerotic plaque noted in the left external carotid artery. Abnormal waveform morphology noted in the left vertebral artery. Procedure Carotid Duplex 66052. This is a Carotid Duplex examination using B-mode, color flow and specral Doppler. Exam performed in department. VL/Carotid Duplex Ultrasound Interpretation Summary Intimal thickening of the proximal right internal carotid artery with less than 50% stenosis Less than 50% stenosis right external carotid artery Dissection is noted in the left common carotid artery with bidirectional flow. The carotid dissection does not appear to enter the left internal carotid arter y with intimal thickening and less than 50% stenosis Less than 50% stenosis left external carotid artery Patent and antegrade vertebral arteries bilaterally The dissection findings are new from a previous carotid duplex examination of A pril 2017 Ordering Physician: Nguyễn Stark Chi Referring Physician: Nguyễn Stark Chi Performed By: Tena Haas RVT
== END | disposition home or self-care (01) ==
LOC: CVS 12:56
PROVIDERS: PCP Family Medicine Geriatric Medicine; Visit Provider Family Medicine Geriatric Medicine
DX: I65.29 Occlusion and stenosis of unspecified carotid artery (principal); R20.0 Anesthesia of skin
CPT/HCPCS: 93880

== ENCOUNTER → 2022-04-22 | Outpatient (CLI) | payer MEDICARE, MEDICAID, SELFPAY ==
--- NOTE | 2022-04-22 13:14 | MRI_ITS ---
EXAM: MR HEAD WITHOUT INTRAVENOUS CONTRAST CLINICAL INDICATION: Facial numbness. TECHNIQUE: Multiplanar and multisequence MR images of the brain were obtained without intravenous contrast. This report was created using Intrinsity report generation technology. COMPARISON: CT head without contrast 03/24/2022. MRI brain without contrast 06/28/2020. FINDINGS: BRAIN AND EXTRA-AXIAL SPACES: No diffusion restriction to suspect acute or subacute ischemic infarct. Dilatation of the right anterior lateral ventricle is unchanged. No intrinsic focal signal abnormalities throughout the brain parenchyma. Prominent perivascular spaces in the putamen, right more than left are unchanged. Normal ventricles and cisterns. No intra- or extra-axial hemorrhage. No intracranial mass or mass effect. Posterior fossa structures are unremarkable. SELLA: Unremarkable. Normal sella turcica, pituitary gland, infundibular stalk, optic chiasm and hypothalamus. AUDITORY SYSTEM: Unremarkable. The internal auditory canals are patent. BONES/JOINTS: Unremarkable. No discrete lytic or blastic abnormalities. SINUSES: Unremarkable as visualized. Clear. MASTOID AIR CELLS: Unremarkable as visualized. Clear. ORBITS: Unremarkable as visualized. Both globes, extraocular muscles, optic nerves and retrobulbar fat appear unremarkable. VASCULATURE: Unremarkable as visualized. Normal flow voids in the major intracranial circulation. MRI/Brain without Contrast IMPRESSION: 1. No acute findings in the head/brain. 2. Disproportionate dilatation in the right anterior lateral ventricle when compared to the left. This may be developmental or from remote injury. 3. No significant change or new findings when compared to 06/28/2020. Electronically Signed: Kevin Tovar MD at 15:57 EST ,
== END | disposition home or self-care (01) ==
LOC: MRI 13:11
PROVIDERS: PCP Family Medicine Geriatric Medicine; Referring Provider Family Medicine Geriatric Medicine; Visit Provider Family Medicine Geriatric Medicine
DX: R20.0 Anesthesia of skin (principal)
CPT/HCPCS: 70551

== ENCOUNTER → 2022-05-30 | Outpatient (CLI) | payer MEDICARE, MEDICAID, SELFPAY ==
[2022-05-30 12:31] LABS: Absolute Lymphocyte Count 1.26 X10^3/uL (0.83-4.51); Absolute Neutrophil Count 3.6 X10^3/uL (2.0-7.7); Basophil# 0.03 X10^3/uL; Basophil% 0.6 % (0-1); Eosinophils% 1.9 % (0-5); Hemoglobin 15.5 g/dL (13.0-16.5); Lymphocyte # 1.26 X10^3/ul (0.83-4.51); Lymphocyte % 23.7 % (19-41); Mean Corp Hgb Conc 34.4 g/dL (32-36); Mean Corpuscular Hgb 29.8 pg (27.0-32.0); Mean Corpuscular Volume 86.4 fL (80-94); Mean Platelet Vol. 11.1 fl (6.2-12.0); Monocyte# 0.31 X10^3/uL; Monocyte% 5.8 % (0-10); NRBC Flagged by Analyzer 0 % (0-5); Neutrophil # 3.59 X10^3/uL (2.7-7.7); Neutrophil % 67.6 % (47-70); Platelet Count 216 K/mm3 (150-450); RBC Distribution Width CV 12.2 % (11.6-14.6); RBC Distribution Width SD 38.5 fl (35.1-43.9); Red Blood Count 5.21 M/mm3 (4.6-6.2); White Blood Count 5.3 K/mm3 (4.4-11.0)
[2022-05-30 13:00] LABS: ALB/GLOB Ratio 1.1 RATIO (0.9-2.4); AST(SGOT) 24 U/L (15-37); Alanine Aminotransfer ALT/SGPT 46 U/L (16-61); Albumin, Serum 3.5 g/dL (3.2-5.0); Alkaline Phosphatase 120 U/L (45-117); Anion Gap 7 (5-15); BUN 16 mg/dL (7-18); BUN/Creat Ratio 14.5 RATIO (10-20); Calcium,Total 8.6 mg/dL (8.5-10.1); Chloride 107 mmol/L (98-107); EST Glomerular Filtration Rate 76 mL/min (>60); Est Glom Filt Rate - Afr Amer 92 mL/min (>60); Globulin 3.2 g/dL (2.2-4.2); Glucose 131 mg/dL (74-106); Potassium 3.8 mmol/L (3.5-5.1); Protein, Total 6.7 g/dL (6.4-8.2); Sodium Level 141 mmol/L (136-145); Thyroid Stim Hormone (TSH) 2.53 uIU/mL (0.358-3.74)
== END | disposition home or self-care (01) ==
LOC: POLAB3 10:15
PROVIDERS: PCP Family Medicine Geriatric Medicine; Visit Provider Family Medicine Geriatric Medicine
DX: F52.8 Other sexual dysfunction not due to a substance or known physiological condition (principal); I10 Essential (primary) hypertension
CPT/HCPCS: 36415; 80053; 84403; 84443; 85025

== ENCOUNTER → 2022-05-31 | Outpatient (CLI) | payer MEDICARE, MEDICAID, SELFPAY ==
[2022-05-31] MEDS: Zolpidem Tartrate 5 MG Tablet PO (22:15)
== END | disposition home or self-care (01) ==
LOC: SL 20:18
PROVIDERS: PCP Family Medicine Geriatric Medicine; Visit Provider Nurse Practitioner Acute Care
DX: G47.10 Hypersomnia, unspecified (principal)
CPT/HCPCS: 95810

== ENCOUNTER 2022-06-17 12:30 | Outpatient (RCR) | payer MEDICARE, MEDICAID, SELFPAY ==
--- NOTE | 2022-05-08 15:37 | HP.OTEVAL_ITS ---
Patient's Visit Information BECK WANG is a 46 year old M, referred to Occupational Therapy by Dr. Nguyễn Stark MD, with a diagnosis of CVA, Hemiplegia left UE. Date of Evaluation: 05/08/22 Occupational Therapist: Emperatriz Marie, OTR/L, CHT - Subjective This 46 year old male was seen for OT eval with dx of CVA and left UE hem iplegia- pt states he has had multiple medical complications over the past fall and winter months. pt has constant headache and neck pain - a number of test have been ran but inconclusive will see his insurance administrator [id number]. Pt well Know to this OTR/Tila,CHT he arrives with increase concerns of left UE muscle tightness that has affected his ability to dress/meal prep or perform daily tasks as he was able to do prior to 5 weeks ago. Pt wants to decrease tone /muscle tightness to return using his left UE with ADLs. - ADLs Dressing: Button shirt, Pants Fasteners: Tie shoes, Buttons, Zippers Eating: Cut food Bathing: Handle washcloth & soap, Squeeze shampoo bottle Grooming: Trim shi, Trim nails, [place] teeth Kitchen: Chop with knife, Peel fruits & vegetables, Open jars, Open bottle caps, Take dish out of oven, Place dish in microwave Household: Sweep/mop, Laundry Yard: [place], Use shovel, Use pruners Miscellaneous: Open medication bottle, Handle money (change), Hold change, Take things out of wallet, Use computer keyboard, Function in drive through window - ROM Elbow: right WFL left -10/135 Forearm: right WFL left supination unable Wrist: right WFL left is positioned in flexor tone of 35* ROM Comments: pt demo with min digit ext due to increase tone of flexors - Sensation Sensation Comments: forearm down diminished light touch - Movement Muscle Tone: left UE elbow Min Tone left forearm and wrist max tone - Quick DASH-Disab of Arm,Shoulder& Hand Quick DASH Score: [phone] - Goals Goal:: pt will demo increase in left forearm fluid supination/pronation to perform ADLs at a ANTOLIN level by d/c. pt will demo increase in left wrist fluid motion of flexion/extension to perform grasp/release of med. and small objects by d/c. pt will demo the ability to open close digits to grab knife and cut simulated objects ANTOLIN by d/c Goal:: pt will demo a decrease in flexor mechanisms tone to min tone to increase functional motion to initiate bilateral hand tasks by d/c - Rehabilitation General Assessment: The 46 year old male was seen for initial eval increased concerns of left UE tightness/tone. Due this change in his functional left UE movement pt has had increased help with ADLs. pt states tightness in his left forearm feels like a constant muscle cramp. Now pt is struggling for open close grasp for objects. pt would benefit from skilled OT services 1-2x week for 12 weeks to assist in returning flexion/extension fluid movement to use left UE with ADLs and IADLs. Pt demo understanding and agrees to POC. Rehabilitation Potential: Good - Anticipated Interventions A/AAROM/PROM, Triggerpoint Release, Modalities, Neuro Reeducation, Education re assistive Equipment, Education re Diagnosis, Home Program - Visit Plan Frequency: 1-2x /Week Duration: 3 Months TEXT: Thank you for the opportunity to evaluate your patient. For Medicare and Medicare HMO plans, please review the plan of care and approve it. It will need to be FAXED BACK to us at [phone] for Medicare purposes. Please let me know if there are questions or concerns regarding this plan of care. Physician Signature: Date:
--- NOTE | 2022-10-29 07:59 | HP.OT.NRP ---
Patient Information Patient Information: CHAD WANG was seen in my office for initial evaluation on 05/08/22. The following Plan of Care was established for this patient: POC Established Initial Frequency: 1-2x /Week Initial Duration: 3 Months Anticipated Interventions Anticipated Interventions: A/AAROM/PROM, Triggerpoint Release, Modalities, Neuro Reeducation, Education re assistive Equipment, Education re Diagnosis and Home Program Last Seen Last Seen: This patient was last seen in our office 06/17/22. Pertinent comments regarding their Occupational therapy will appear below: Chad was seen in OT with dx of left hemiparesis. Pt was undergoing open heart sx again and at this time has been unable to schedule further apts. Pt is d/c at this time due to medical procedure. At this point I will be discontinuing this patient from occupational therapy. I would be happy to see this patient again in the future if found appropriate by the physician. Thank you! Emperatriz Marie, OTR/L, CHT
== END 2022-06-17 19:00 | disposition home or self-care (01) ==
LOC: OT 12:30
PROVIDERS: PCP Family Medicine Geriatric Medicine; Referring Provider Family Medicine Geriatric Medicine; Visit Provider Family Medicine Geriatric Medicine
DX: G81.94 Hemiplegia, unspecified affecting left nondominant side (principal)
CPT/HCPCS: 97110; 97140; 97166

== ENCOUNTER → 2022-11-27 | Outpatient (CLI) | payer MEDICARE, MEDICAID, SELFPAY ==
[2022-11-27 14:33] LABS: Absolute Lymphocyte Count 1.06 X10^3/uL (0.83-4.51); Absolute Neutrophil Count 3.6 X10^3/uL (2.0-7.7); Basophil# 0.02 X10^3/uL; Basophil% 0.4 % (0-1); Eosinophil# 0.05 X10^3/uL; Hematocrit 45.8 % (40-54); Hemoglobin 14.9 g/dL (13.0-16.5); Lymphocyte # 1.06 X10^3/ul (0.83-4.51); Lymphocyte % 20.9 % (19-41); Mean Corp Hgb Conc 32.5 g/dL (32-36); Mean Corpuscular Hgb 27.1 pg (27.0-32.0); Mean Corpuscular Volume 83.4 fL (80-94); Mean Platelet Vol. 10.9 fl (6.2-12.0); Monocyte# 0.35 X10^3/uL; Monocyte% 6.9 % (0-10); NRBC Flagged by Analyzer 0 % (0-5); Neutrophil # 3.57 X10^3/uL (2.7-7.7); Neutrophil % 70.4 % (47-70); Platelet Count 224 K/mm3 (150-450); RBC Distribution Width SD 38.9 fl (35.1-43.9); Red Blood Count 5.49 M/mm3 (4.6-6.2); White Blood Count 5.1 K/mm3 (4.4-11.0)
[2022-11-27 15:06] LABS: ALB/GLOB Ratio 1.1 RATIO (0.9-2.4); AST(SGOT) 19 U/L (15-37); Alanine Aminotransfer ALT/SGPT 26 U/L (16-61); Albumin, Serum 3.5 g/dL (3.2-5.0); Alkaline Phosphatase 103 U/L (45-117); Anion Gap 5 (5-15); BUN 11 mg/dL (7-18); BUN/Creat Ratio 10.4 RATIO (10-20); Calcium,Total 8.5 mg/dL (8.5-10.1); Chloride 110 mmol/L (98-107); Cholesterol 119 mg/dL (200); Creatinine, Serum 1.06 mg/dL (0.70-1.30); EST Glomerular Filtration Rate 79 mL/min (>60); Est Glom Filt Rate - Afr Amer 96 mL/min (>60); Globulin 3.2 g/dL (2.2-4.2); Glucose 89 mg/dL (74-106); High Density Lipoprotein 39 mg/dL; Protein, Total 6.7 g/dL (6.4-8.2); Sodium Level 142 mmol/L (136-145); Thyroid Stim Hormone (TSH) 1.31 uIU/mL (0.358-3.74); Triglycerides 99 mg/dL; Very Low Density Lipoprotein 20 mg/dL (5-40)
== END | disposition home or self-care (01) ==
LOC: POLAB3 10:44
PROVIDERS: PCP Family Medicine Geriatric Medicine; Visit Provider Family Medicine Geriatric Medicine
DX: I10 Essential (primary) hypertension (principal)
CPT/HCPCS: 36415; 80053; 80061; 84443; 85025

== ENCOUNTER → 2023-04-23 | Outpatient (CLI) | payer MEDICARE, MEDICAID, SELFPAY | END | disposition home or self-care (01) | LOC: POLAB3 09:50 | PROVIDERS: PCP Family Medicine Geriatric Medicine; Visit Provider Family Medicine Geriatric Medicine | DX: R53.81 Other malaise (principal) | CPT/HCPCS: 36415; 87040 ==

== ENCOUNTER → 2023-04-25 | Outpatient (CLI) | payer MEDICARE, MEDICAID, SELFPAY | END | disposition home or self-care (01) | PROVIDERS: PCP Family Medicine Geriatric Medicine; Referring Provider Family Medicine Geriatric Medicine; Visit Provider Family Medicine Geriatric Medicine | DX: R68.83 Chills (without fever) (principal) | CPT/HCPCS: 87631 ==

== ENCOUNTER → 2023-06-03 | Outpatient (CLI) | payer MEDICARE, MEDICAID, SELFPAY ==
[2023-06-03 14:17] LABS: Absolute Lymphocyte Count 1.18 X10^3/uL (0.83-4.51); Absolute Neutrophil Count 4.2 X10^3/uL (2.0-7.7); Basophil# 0.03 X10^3/uL; Basophil% 0.5 % (0-1); Eosinophil# 0.04 X10^3/uL; Eosinophils% 0.7 % (0-5); Hematocrit 45.2 % (40-54); Hemoglobin 15.2 g/dL (13.0-16.5); Lymphocyte # 1.18 X10^3/ul (0.83-4.51); Lymphocyte % 19.9 % (19-41); Mean Corp Hgb Conc 33.6 g/dL (32-36); Mean Corpuscular Hgb 28.2 pg (27.0-32.0); Mean Corpuscular Volume 83.9 fL (80-94); Mean Platelet Vol. 10.7 fl (6.2-12.0); Monocyte# 0.48 X10^3/uL; Monocyte% 8.1 % (0-10); NRBC Flagged by Analyzer 0 % (0-5); Neutrophil # 4.18 X10^3/uL (2.7-7.7); Neutrophil % 70.5 % (47-70); Platelet Count 226 K/mm3 (150-450); RBC Distribution Width CV 12.5 % (11.6-14.6); Red Blood Count 5.39 M/mm3 (4.6-6.2); White Blood Count 5.9 K/mm3 (4.4-11.0)
[2023-06-03 15:44] LABS: ALB/GLOB Ratio 1.3 RATIO (0.9-2.4); AST(SGOT) 21 U/L (15-37); Alanine Aminotransfer ALT/SGPT 39 U/L (16-61); Albumin, Serum 3.8 g/dL (3.2-5.0); Alkaline Phosphatase 101 U/L (45-117); Anion Gap 4 (5-15); BUN 17 mg/dL (7-18); Calcium,Total 8.7 mg/dL (8.5-10.1); Chloride 110 mmol/L (98-107); Cholesterol 122 mg/dL (200); Creatinine, Serum 1.06 mg/dL (0.70-1.30); EST Glomerular Filtration Rate 79 mL/min (>60); Est Glom Filt Rate - Afr Amer 96 mL/min (>60); Globulin 2.9 g/dL (2.2-4.2); Glucose 93 mg/dL (74-106); High Density Lipoprotein 37 mg/dL; Potassium 4.1 mmol/L (3.5-5.1); Protein, Total 6.7 g/dL (6.4-8.2); Sodium Level 141 mmol/L (136-145); Thyroid Stim Hormone (TSH) 2.73 uIU/mL (0.358-3.74); Triglycerides 168 mg/dL; Very Low Density Lipoprotein 34 mg/dL (5-40)
== END | disposition home or self-care (01) ==
LOC: POLAB3 13:28
PROVIDERS: PCP Family Medicine Geriatric Medicine; Visit Provider Family Medicine Geriatric Medicine
DX: I10 Essential (primary) hypertension (principal); E78.5 Hyperlipidemia, unspecified
CPT/HCPCS: 36415; 80053; 80061; 84443; 85025

== ENCOUNTER → 2023-12-04 | Outpatient (CLI) | payer MEDICARE, MEDICAID, SELFPAY ==
[2023-12-04 09:51] LABS: Basophil# 0.04 X10^3/uL; Basophil% 0.7 % (0-1); Eosinophil# 0.07 X10^3/uL; Eosinophils% 1.2 % (0-5); Hemoglobin 15.2 g/dL (13.0-16.5); Lymphocyte % 20.8 % (19-41); Mean Corpuscular Hgb 28.3 pg (27.0-32.0); Mean Corpuscular Volume 85.5 fL (80-94); Mean Platelet Vol. 10.8 fl (6.2-12.0); Monocyte# 0.44 X10^3/uL; Monocyte% 7.6 % (0-10); NRBC Flagged by Analyzer 0 % (0-5); Neutrophil # 4.01 X10^3/uL (2.7-7.7); Neutrophil % 69.5 % (47-70); Platelet Count 211 K/mm3 (150-450); RBC Distribution Width CV 12.5 % (11.6-14.6); RBC Distribution Width SD 38.5 fl (35.1-43.9); Red Blood Count 5.38 M/mm3 (4.6-6.2); White Blood Count 5.8 K/mm3 (4.4-11.0)
--- NOTE | 2023-12-04 10:40 | RAD_ITS ---
STUDY: X-RAY - LEFT KNEE REASON FOR EXAM: Male, 48 years old. PAIN TECHNIQUE: 2 views of the left knee. COMPARISON: None. FINDINGS: Normal visualized distal femur. Normal visualized proximal tibia and fibula. Normal proximal tibiofibular articulation. There is no demonstrated fracture. Normal medial femorotibial compartment. Normal lateral femorotibial compartment. Normal patellofemoral articulation. There is a tiny joint effusion. The soft tissue structures are unremarkable. RAD/Knee 1 or 2 Views IMPRESSION: Tiny left knee joint effusion. No demonstrated fracture. Electronically Signed: Yonas Fraga MD at 11:27 EDT ,
[2023-12-04 11:37] LABS: ALB/GLOB Ratio 1.2 RATIO (0.9-2.4); AST(SGOT) 22 U/L (15-37); Alanine Aminotransfer ALT/SGPT 24 U/L (16-61); Albumin, Serum 3.8 g/dL (3.2-5.0); Alkaline Phosphatase 108 U/L (45-117); Anion Gap 6 (5-15); BUN 12 mg/dL (7-18); BUN/Creat Ratio 11.3 RATIO (10-20); Calcium,Total 9.2 mg/dL (8.5-10.1); Chloride 110 mmol/L (98-107); Cholesterol 121 mg/dL (200); Creatinine, Serum 1.06 mg/dL (0.70-1.30); EST Glomerular Filtration Rate 79 mL/min (>60); Est Glom Filt Rate - Afr Amer 95 mL/min (>60); Globulin 3.1 g/dL (2.2-4.2); Glucose 88 mg/dL (74-106); High Density Lipoprotein 40 mg/dL; Potassium 4.4 mmol/L (3.5-5.1); Protein, Total 6.9 g/dL (6.4-8.2); Sodium Level 141 mmol/L (136-145); Triglycerides 90 mg/dL; Very Low Density Lipoprotein 18 mg/dL (5-40)
== END | disposition home or self-care (01) ==
PROVIDERS: PCP Family Medicine Geriatric Medicine; Referring Provider Family Medicine Geriatric Medicine; Visit Provider Family Medicine Geriatric Medicine
DX: I10 Essential (primary) hypertension (principal); E78.5 Hyperlipidemia, unspecified; M25.562 Pain in left knee
CPT/HCPCS: 36415; 73560; 80053; 80061; 84443; 85025

== ENCOUNTER 2024-03-06 22:51 | Emergency (ER) | payer MEDICARE, MEDICAID, SELFPAY ==
[2024-03-06 22:52] VITALS: BP 191/75; PULSE 65; RESP 18; TEMP 37; O2SAT 98; BMI 28.1
[2024-03-06 23:02] VITALS: O2SAT 100
[2024-03-06 23:15] VITALS: BP 156/64; PULSE 59; RESP 19; O2SAT 98
--- NOTE | 2024-03-06 23:16 | EKG12_ITS ---
Test Reason : CP Blood Pressure : */* mmHG Vent. Rate : 56 BPM Atrial Rate : 56 BPM P-R Int : 174 ms QRS Dur : 100 ms QT Int : 416 ms P-R-T Axes : 29 -42 57 degrees QTcB Int : 401 ms Sinus bradycardia Left axis deviation Abnormal ECG Confirmed by Min Fournier ([id number]), editor in chief newspaper NABEEL STALEY ([id number]) on 03/09/2024 10:27:00 AM Referred By: DR JEAN Confirmed By: Min Fournier
--- NOTE | 2024-03-06 23:22 | RAD_ITS ---
EXAM: XR CHEST, 2 VIEWS CLINICAL INDICATION: Dyspnea and pleuritic pain TECHNIQUE: Frontal and lateral views of the chest. COMPARISON: 02/26/2022. FINDINGS: LUNGS AND PLEURAL SPACES: Unremarkable. No consolidation or edema. No pneumothorax. No effusion. HEART: See below. MEDIASTINUM: Central airways and mediastinal contour are unremarkable. BONES/JOINTS: Sternal wires. No acute fracture. SOFT TISSUES: Unremarkable. VASCULATURE: Compared with the previous examination there has been extension of the stent graft that now involves the entire descending thoracic aorta and visualized upper abdominal aorta. Status post aortic valvuloplasty. RAD/Chest PA and Lateral IMPRESSION: 1. Compared with the previous examination there has been extension of the stent graft that now involves the entire descending thoracic aorta and visualized upper abdominal aorta. 2. Status post aortic valvuloplasty. 3. No acute cardiopulmonary abnormality. Electronically Signed: Min Segundo MD at 0:11 EST ,
[2024-03-06 23:26] LABS: Absolute Lymphocyte Count 1.76 X10^3/uL (0.83-4.51); Absolute Neutrophil Count 5.2 X10^3/uL (2.0-7.7); Basophil# 0.03 X10^3/uL; Basophil% 0.4 % (0-1); Eosinophil# 0.07 X10^3/uL; Eosinophils% 0.9 % (0-5); Hematocrit 47.1 % (40-54); Hemoglobin 15.9 g/dL (13.0-16.5); Lymphocyte # 1.76 X10^3/ul (0.83-4.51); Lymphocyte % 23.1 % (19-41); Mean Corp Hgb Conc 33.8 g/dL (32-36); Mean Corpuscular Volume 85.9 fL (80-94); Mean Platelet Vol. 10.8 fl (6.2-12.0); Monocyte# 0.54 X10^3/uL; Monocyte% 7.1 % (0-10); NRBC Flagged by Analyzer 0 % (0-5); Neutrophil % 68.2 % (47-70); Platelet Count 238 K/mm3 (150-450); RBC Distribution Width CV 12.2 % (11.6-14.6); RBC Distribution Width SD 38.3 fl (35.1-43.9); Red Blood Count 5.48 M/mm3 (4.6-6.2); White Blood Count 7.6 K/mm3 (4.4-11.0)
[2024-03-06 23:30] VITALS: BP 133/60; PULSE 57; RESP 19; O2SAT 97
--- NOTE | 2024-03-06 23:38 | EX.ED.DYSGE1 ---
HPI History of Present Illness Chief Complaint: Chest Pain Detail of Chief Complaint: Patient does not have chest pain. He has pain lateral aspect of his abdome Informant: patient Onset/Context/Timing Onset: Today (Hours prior to presentation.) Context: Sudden Onset Timing: Intermittent (Hurts when he breathes) Quality: Pain lateral upper abdomen on the right described as pain as if someone ki Location: Right lateral abdomen Current Severity: 0/10 Maximum Severity: Moderate Worsened by: Breathing Relieved by: Not applicable Associated Symptoms Associated Symptoms: No other symptoms Narrative Narrative: Patient is a 48-year-old male. He presents with upper lateral right-sided abdominal pain that hurts worse when he breathes. He denies history of VTE. He denies leg pain, swelling discoloration. He is on aspirin as well as Plavix. 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 He did have a stroke as well. He is not on an anticoagulant. He presents because of pain right side. He denies food intolerance. He denies nausea, vomiting or diarrhea. He does have a slight cough. He has not smoked since 2013. His cough is nonproductive. He denies back or flank pain. He denies history of renal or ureterolithiasis. He denies dysuria, frequency, urgency or hematuria. There is no history of direct or indirect trauma. 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 Seizure GERD (gastroesophageal reflux disease) Pneumonia Hearing problem Back problem Constipation Diarrhea Nausea & vomiting Abdominal pain Heart murmur Afib History of carotid artery dissection CVA (cerebral vascular accident) Thoracoabdominal aortic dissection Hyperlipidemia Bicuspid aortic valve Home Medications ?Medication ?Instructions ?Recorded ?Last Taken ?Type aspirin 81 mg chewable tablet 81 mg PO DAILY 12/30/15 Unknown History clopidogrel 75 mg tablet 75 mg PO DAILY 10/26/16 Unknown History simvastatin 20 mg tablet 20 mg PO QPM #30 tabs 05/22/18 Unknown Rx metoprolol succinate 25 mg 12.5 mg PO BID 02/05/20 Unknown History tablet,extended release 24 hr omeprazole 20 mg capsule,delayed 20 mg PO DAILY 02/05/20 Unknown History release citalopram 10 mg tablet (Celexa) 10 mg PO DAILY 05/10/22 Unknown History Allergy/AdvReac Type Severity Reaction Status Date / Time oxycodone (From Percocet) Allergy Shortness Verified 03/06/24 22:52 of breath atorvastatin AdvReac Severe Dizziness Verified 03/06/24 22:52 citalopram (From Celexa) AdvReac erectile Verified 03/06/24 22:52 dysfunction Family History Father CVA (cerebral vascular accident) Heart disease Hypertension Myocardial infarction Grandfather CAD (coronary artery disease) Mother CVA (cerebral vascular accident) Hypertension Heart disease IPF (idiopathic pulmonary fibrosis) Other Cervical cancer Colon cancer Diabetes Ovarian cancer Surgical History History of bilateral carotid endarterectomy History of thoracic aortic aneurysm repair (05/2018) Hx of myringotomy History of appendectomy History of vasectomy History of aortic valve replacement (06/04/18) Social History household members: none Smoking Status: Former smoker alcohol intake: never substance use type: does not use caffeine: No what type of physical activity do you participate in: walking frequency: daily duration: < 15 minutes/day seatbelt use: always do you feel safe at home: Yes ROS ROS ED Constitutional Constitutional ED: Denies chills, fever(s), subjective or sweats Eyes Eyes: Denies blurry vision or change in vision ENT ENT ED: Denies ear pain, rhinorrhea or sore throat Cardiovascular Cardiovascular: Denies chest pain, orthopnea, palpitations, paroxysmal nocturnal dyspnea or racing heartbeat Respiratory/Chest Respiratory/Chest: Reports cough, dyspnea and other Details: Patient states his dyspnea started 2 days ago and was intermittent. An episode yesterday that lasted a couple hours. He stated when the pain started he had some shortness of breath. ; Denies dyspnea on exertion, orthopnea, paroxysmal nocturnal dyspnea or sputum Gastrointestinal Gastrointestinal: Reports abdominal pain; Denies constipation, diarrhea, melena, nausea or vomiting Genitourinary Genitourinary ED: Reports other Details: And detailed HPI narrative ; Denies dysuria, hematuria or urinary frequency Musculoskeletal Musculoskeletal: Denies arthralgias, back pain or myalgias Integumentary Denies rash Hematologic/Lymphatic Hematologic/Lymphatic: Reports as per HPI EXAM Physical Exam Const Vital Signs: 03/06/24 22:52 03/06/24 23:02 03/06/24 23:15 Temperature 98.6 F Temperature Source Oral Pulse Rate 65 Respiratory Rate 18 Blood Pressure 191/75 H 156/64 H Blood Pressure Mean 113 91 Pulse Ox 98 100 Oxygen Delivery Method Room Air 03/06/24 23:15 03/06/24 23:30 03/06/24 23:45 Temperature Temperature Source Pulse Rate 59 L 57 L 54 L Respiratory Rate 19 H 19 H 16 Blood Pressure 156/64 H 133/60 H 112/83 H Blood Pressure Mean 91 79 94 Pulse Ox 98 97 98 Oxygen Delivery Method 03/07/24 00:00 03/07/24 00:15 Temperature Temperature Source Pulse Rate 55 L 52 L Respiratory Rate 18 24 H Blood Pressure 122/60 H 126/65 H Blood Pressure Mean 81 83 Pulse Ox 99 99 Oxygen Delivery Method Room Air Positive well nourished and well developed General Appearance ED: well developed; Negative for pallor HEENT Reports moist mucous membranes HEENT Narrative: Head is atraumatic and normocephalic. Ears normal. Nares patent. Eyes PERRL and EOMs intact bilaterally General Eye ED: Negative for pale conjunctiva or scleral icterus Neck no lymphadenopathy, supple and no JVD Neck Narrative: Trachea is midline. There is no stridor. There is no carotid bruits noted Chest Wall inspection of chest normal and palpation of chest normal Resp normal respiratory effort and clear to auscultation bilaterally Cardio regular rate, regular rhythm, S1 normal heart sound, S2 normal heart sound and no murmurs GI normal to inspection, nondistended, normoactive bowel sounds, non-distended and no masses; Negative for hepatosplenomegaly Palpation: soft and tender other (Anterior to posterior axillary line right upper lateral abdomen. There are no dermatologic lesions noted.) Back/Spine no CVA tenderness Extremity normal to inspection Extremity Narrative: There is no asymmetry, swelling, discoloration, leg vein distention, palpable cords or tenderness along the distribution of the deep venous system. Neuro oriented x3 and CN's II-XII intact bilaterally Sensorium / Orientation: alert Psych mental status grossly normal Skin no rashes or lesions noted, no wounds and skin turgor normal General Skin Exam: Negative for jaundice or pallor MDM MDM MDM Narrative Medical decision making narrative: Patient does not have chest pain. His pain is upper lateral right abdomen. Patient's blood pressure is elevated 191/75. Will monitor. Patient does not have intolerance to be spicy foods and has a negative [place]o sign. Because he has a cough and the pain is pleuritic will obtain chest x-ray looking for pneumothorax and pneumonia. CBC was obtained assess white count differential and H&H. Electrolyte panel in the event that he may need advanced imaging with contrast. Patient is PERC negative. Patient is Wells score is less than 3. Lab Data Attestation: I reviewed the patient's lab results. Lab results narrative: CBC is normal. Basic metabolic panel is unremarkable. Labs: Laboratory Results - last 24 hr 03/06/24 22:59 WBC 7.6 RBC 5.48 Hgb 15.9 Hct 47.1 MCV 85.9 MCH 29.0 MCHC 33.8 RDW Std Deviation 38.3 RDW Coeff of Cheri 12.2 Plt Count 238 MPV 10.8 Immature Gran % (Auto) 0.300 Neut % (Auto) 68.2 Lymph % (Auto) 23.1 Early % (Auto) 7.1 Eos % (Auto) 0.9 Baso % (Auto) 0.4 Absolute Neuts (auto) 5.2 Absolute Lymphs (auto) 1.76 Nucleated RBC % 0 Sodium 142 Potassium 4.0 Chloride 110 H Carbon Dioxide 27.0 Anion Gap 5 BUN 14 Creatinine 1.08 Estim Creat Clear Calc 81.96 Est GFR (MDRD) Af Amer 93 Est GFR (MDRD) Non-Af 77 BUN/Creatinine Ratio 13.0 Glucose 98 Calcium 9.1 Radiography Chest X-Ray - ED: 2 View, Read by ED Physician, Unchanged, Heart, Lungs, Mediastinum, Bony Structures, No Acute Disease and Chronic Changes (Patient is noted to have stent in his aorta and his left carotid artery. He has history of aortic dissection and carotid dissection. Also has evidence of presumed surgery aortic valve.) Diagnostic Testing: Clinical Impression(s) from Imaging Studies Chest X-Ray 03/06/24 23:22 IMPRESSION: 1. Compared with the previous examination there has been extension of the stent graft that now involves the entire descending thoracic aorta and visualized upper abdominal aorta. 2. Status post aortic valvuloplasty. 3. No acute cardiopulmonary abnormality. Electronically Signed: Min Segundo MD at 0:11 EST , EKG Initial EKG: Attestation: I personally reviewed and interpreted this EKG as follows: Interpretation: Sinus Bradycardia (Sinus bradycardia with a rate of 56. [place] to the left. [place] interval is 174 ms. Cures duration 100 ms. QT duration 416 ms. There are no ischemic changes noted.) Treatment and Re-Evaluation :: Patient was informed of his results. Patient was informed the cause of his pain is uncertain. Since he is on aspirin and Plavix NSAIDs are relative contraindication. Patient was informed that the cause of his pain is unknown. Discharge Plan Triage Chief Complaint: Chest Pain ED Provider: Vinnie Tapia Dx/Rx/DC Orders Clinical Impression: Acute upper abdominal pain, CVA (cerebral vascular accident), Pleuritic pain, Hx of repair of dissecting thoracic aortic aneurysm, Balwinder type A, History of dissection of internal carotid artery, Sinus bradycardia seen on personnel monitor Instructions: ED Pain, Acute, Uncertain Cause Prescriptions: No Action citalopram [Celexa] 10 mg tablet 10 mg PO DAILY aspirin 81 MG tablet,chewable 81 mg PO DAILY clopidogrel 75 MG tablet 75 mg PO DAILY omeprazole 20 MG capsule,delayed release(DR/EC) 20 mg PO DAILY metoprolol succinate 25 MG tablet extended release 24 hr 12.5 mg PO BID Rx Instructions: 25 mg PO 0.5 tablet at bedtime simvastatin 20 mg tablet 20 mg PO QPM Qty: 30 11RF Primary Care Provider: Nguyễn Stark Chi Referrals: Nguyễn Stark Chi, MD [Primary Care Provider] - 3-5 Days if not improving Print Language: [place] Disposition Disposition: Home, Self Care
[2024-03-06 23:45] VITALS: BP 112/83; PULSE 54; RESP 16; O2SAT 98
[2024-03-06 23:45] LABS: Anion Gap 5 (5-15); BUN 14 mg/dL (7-18); Calcium,Total 9.1 mg/dL (8.5-10.1); Chloride 110 mmol/L (98-107); Creatinine, Serum 1.08 mg/dL (0.70-1.30); EST Glomerular Filtration Rate 77 mL/min (>60); Est Glom Filt Rate - Afr Amer 93 mL/min (>60); Estimated Creatinine Clearance 81.96 ml/min; Glucose 98 mg/dL (74-106); Sodium Level 142 mmol/L (136-145)
[2024-03-07] VITALS: BP 122/60; PULSE 55; RESP 18; O2SAT 99
[2024-03-07 00:15] VITALS: BP 126/65; PULSE 52; RESP 24; O2SAT 99
[2024-03-07 00:38] VITALS: BP 125/77; PULSE 55; RESP 16; TEMP 36.6; O2SAT 99
== END 2024-03-07 00:40 | disposition home or self-care (01) ==
PROVIDERS: Emergency Provider Emergency Medicine; PCP Family Medicine Geriatric Medicine; Visit Provider Emergency Medicine
DX: R10.10 Upper abdominal pain, unspecified (principal); I63.9 Cerebral infarction, unspecified; Z79.82 Long term (current) use of aspirin; Z87.891 Personal history of nicotine dependence; Z79.899 Other long term (current) drug therapy
CPT/HCPCS: 71046; 80048; 85025; 93005; 99284; A4216

== ENCOUNTER → 2024-03-08 | Outpatient (CLI) | payer MEDICARE, MEDICAID, SELFPAY ==
--- NOTE | 2024-03-08 16:42 | CT_ITS ---
STUDY: CT ABDOMEN AND PELVIS WITH CONTRAST REASON FOR EXAM: Male, 48 years old. ABDOMINAL PAIN RADIATION DOSAGE (If Supplied By Facility): CTDIvol = ( 12.52 ) mGy, DLP = ( 793.81 ) mGycm TECHNIQUE: Transaxial images were obtained from the dome of the diaphragm to the symphysis pubis without oral contrast. Oral and amp; IV Gastrografin and amp; 100mL Isovue-370 was administered. Sagittal and coronal images were reconstructed. Individualized dose optimization techniques were used for this CT. COMPARISON: February 20, 2022 FINDINGS: The visualized lung bases are unremarkable. The visualized portions of the heart are within normal limits. Descending aortic graft is noted. Nonspecific fatty infiltrated liver. There are scattered tiny hypoattenuated densities which are too small to characterize but most likely cysts. Bile ducts are not dilated. Normal gallbladder and extrahepatic biliary system. Normal spleen. Normal pancreas. Normal bilateral adrenal glands. Normal right kidney. Normal left kidney. Normal visualized stomach. Normal small intestine. Diverticular disease of the distal descending and sigmoid colon without evidence for acute diverticulitis. No evidence for acute appendicitis Known chronic aortic dissection is noted extending to the level of the right common iliac status post grafting. Normal inferior vena cava. Normal retroperitoneum. Normal urinary bladder. Small bilateral fat-containing inguinal hernias are observed Normal osseous structures. CT/Abdomen/Pelvis WITH Contrast IMPRESSION: Diverticular changes of the distal descending and proximal sigmoid colon without evidence for acute diverticulitis No evidence for small bowel obstruction or other acute abnormality. Known aortic dissection extending to the right common iliac status post grafting However no prior studies are available for comparison at this time. Recommend correlation with prior studies to assess for interval changes of the status of the dissection Electronically Signed: Davion Paulson MD at 20:27 EST ,
[2024-03-08 17:11] LABS: Color, Urine Yellow (Yellow); Glucose, Dipstick Normal (Normal); Ketone-Dipstick Negative (Negative); Leukocyte Esterase-Dipstick Negative /ul (Negative); Nitrite-Dipstick Negative (Negative); Occult Blood-Urine Negative /ul (Negative); Protein-Dipstick 15 mg/dl (Negative); Urine Bilirubin Dipstick Negative (Negative); Urine Clarity Clear (Clear); Urine Urobilinogen Normal (Normal)
== END | disposition home or self-care (01) ==
PROVIDERS: PCP Family Medicine Geriatric Medicine; Referring Provider Family Medicine Geriatric Medicine; Visit Provider Family Medicine Geriatric Medicine
DX: R10.9 Unspecified abdominal pain (principal)
CPT/HCPCS: 74177; 81002; Q9967

== ENCOUNTER → 2024-06-07 | Outpatient (CLI) | payer MEDICARE, MEDICAID, SELFPAY ==
[2024-06-07 13:23] LABS: Absolute Lymphocyte Count 1.92 X10^3/uL (0.83-4.51); Absolute Neutrophil Count 4.7 X10^3/uL (2.0-7.7); Basophil# 0.04 X10^3/uL; Basophil% 0.5 % (0-1); Eosinophil# 0.11 X10^3/uL; Eosinophils% 1.5 % (0-5); Hematocrit 46.8 % (40-54); Hemoglobin 15.5 g/dL (13.0-16.5); Lymphocyte # 1.92 X10^3/ul (0.83-4.51); Lymphocyte % 25.7 % (19-41); Mean Corp Hgb Conc 33.1 g/dL (32-36); Mean Corpuscular Hgb 28.4 pg (27.0-32.0); Mean Corpuscular Volume 85.9 fL (80-94); Mean Platelet Vol. 10.8 fl (6.2-12.0); Monocyte# 0.64 X10^3/uL; Monocyte% 8.6 % (0-10); NRBC Flagged by Analyzer 0 % (0-5); Neutrophil # 4.72 X10^3/uL (2.7-7.7); Platelet Count 209 K/mm3 (150-450); RBC Distribution Width CV 12.9 % (11.6-14.6); RBC Distribution Width SD 39.6 fl (35.1-43.9); Red Blood Count 5.45 M/mm3 (4.6-6.2); White Blood Count 7.5 K/mm3 (4.4-11.0)
[2024-06-07 20:21] LABS: ALB/GLOB Ratio 1.3 RATIO (0.9-2.4); AST(SGOT) 26 U/L (15-37); Alanine Aminotransfer ALT/SGPT 40 U/L (16-61); Albumin, Serum 3.9 g/dL (3.2-5.0); Alkaline Phosphatase 108 U/L (45-117); Anion Gap 6 (5-15); BUN 14 mg/dL (7-18); BUN/Creat Ratio 12.7 RATIO (10-20); Calcium,Total 8.9 mg/dL (8.5-10.1); Chloride 109 mmol/L (98-107); Cholesterol 123 mg/dL (200); EST Glomerular Filtration Rate 75 mL/min (>60); Est Glom Filt Rate - Afr Amer 91 mL/min (>60); Globulin 3.1 g/dL (2.2-4.2); Glucose 76 mg/dL (74-106); High Density Lipoprotein 41 mg/dL; Potassium 4.1 mmol/L (3.5-5.1); Sodium Level 140 mmol/L (136-145); Triglycerides 170 mg/dL; Very Low Density Lipoprotein 34 mg/dL (5-40)
== END | disposition home or self-care (01) ==
LOC: POLAB3 13:00
PROVIDERS: PCP Family Medicine Geriatric Medicine; Visit Provider Family Medicine Geriatric Medicine
DX: I10 Essential (primary) hypertension (principal); E78.5 Hyperlipidemia, unspecified
CPT/HCPCS: 36415; 80053; 80061; 84443; 85025

== ENCOUNTER 2024-08-30 05:33 | Day surgery (SDC) | payer MEDICARE, MEDICAID, SELFPAY ==
--- NOTE | 2024-08-26 11:14 | PAT.ANESEVAL ---
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 When Was Last Pacemaker Check QUESTION #4 FULL TEXT: You/Your Family Experience fever (hyperthermia) with Anesthesia Last Oral Intake Last Oral intake: Last Oral Intake NPO since Meds taken in AM with sips of water? 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 - radio reporter: PONV - radio reporter Female No 08/26/24 08:47 HX of Motion Sickness No 08/26/24 08:47 HX of N/V After Surgery No 08/26/24 08:47 Non-Smoker Yes 08/26/24 08:47 Duration of Surgery greater No 08/26/24 08:47 than 60 minutes Number of Risk Factors 1 08/26/24 08:47 PONV Score Low Risk 08/26/24 08:47 Height & Weight Height & Weight: Anesthesia: Height & Weight Height 5 ft 6.14 in 03/06/24 22:52 Respiratory Assessment Respiratory Assessment - radio reporter: Respiratory Tract Infection Hx - radio reporter Hx Respiratory Tract Infection No 08/26/24 08:47 STOP Sleep Apnea STOP Sleep Apnea - radio reporter: STOP Sleep Apnea - radio reporter Hx Hypertension Yes 08/26/24 08:47 Hx Sleep Apnea No 08/26/24 08:47 CPAP BIPAP Do you snore loudly (louder No 08/26/24 08:47 than talking or can be heard Do you often feel tired/ No 08/26/24 08:47 fatigued/ sleepy during daytime? Has anyone observed you stop No 08/26/24 08:47 breathing during sleep? STOP Results Negative 08/26/24 08:47 QUESTION #5 FULL TEXT : Do you snore loudly (louder than talking or can be heard through closed doors)? 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 Specify any problems Hx of Preganancy in last 3 N/A 08/26/24 08:47 Months Nurse Filling Out Transfusion [facility] 08/26/24 08:47 & Questions: Date: 08/26/24 08/26/24 08:47 Time: 08:59 08/26/24 08:47 Patient unable to answer at this time (ie. confused, unrespo /Reproduction History /Reproductive History - radio reporter: /Reproductive Hx- radio reporter Hx Now Gestational Age (in weeks): EDC: Hx Hx Para Hx Section SAB PFSH Medical History Wears glasses Depression Marijuana use Fatty liver Cirrhosis High cholesterol Migraine headache Diverticulosis Heartburn Gastric reflux Former smoker History of echocardiogram Cardiology follow-up encounter Abdominal aortic aneurysm dissection Dysautonomia-like disorder Seizure GERD (gastroesophageal reflux disease) Pneumonia Hearing problem Back problem Constipation Diarrhea Nausea & vomiting Abdominal pain Heart murmur Afib History of carotid artery dissection CVA (cerebral vascular accident) Thoracoabdominal aortic dissection Hyperlipidemia Bicuspid aortic valve Home Medications ?Medication ?Instructions ?Recorded ?Last Taken ?Type aspirin 81 mg chewable tablet 81 mg PO DAILY 12/30/15 Unknown History clopidogrel 75 mg tablet 75 mg PO DAILY 10/26/16 Unknown History metoprolol succinate 25 mg 12.5 mg PO BID 02/05/20 Unknown History tablet,extended release 24 hr atorvastatin 40 mg tablet 40 mg PO QDAY 07/30/24 Unknown History famotidine 40 mg tablet 40 mg PO QHS #30 tabs 08/03/24 Unknown Rx pantoprazole 40 mg tablet,delayed 40 mg PO BID #60 tabs 08/03/24 Unknown Rx release Allergy/AdvReac Type Severity Reaction Status Date / Time oxycodone (From Percocet) Allergy Shortness Verified 08/26/24 08:40 of breath citalopram (From Celexa) AdvReac erectile Verified 08/26/24 08:40 dysfunction Family History Father CVA (cerebral vascular accident) Heart disease Hypertension Myocardial infarction Grandfather CAD (coronary artery disease) Mother CVA (cerebral vascular accident) Hypertension Heart disease IPF (idiopathic pulmonary fibrosis) Other Cervical cancer Colon cancer Diabetes Ovarian cancer Surgical History History of bilateral carotid endarterectomy History of thoracic aortic aneurysm repair (05/2018) Hx of myringotomy History of appendectomy History of vasectomy History of aortic valve replacement (06/04/18) Social History household members: none Smoking Status: Former smoker alcohol intake: never substance use type: does not use caffeine: No what type of physical activity do you participate in: walking frequency: daily duration: < 15 minutes/day seatbelt use: always do you feel safe at home: Yes Prior Cardiac Testing/Procedures Prior Cardiac Testing/Procedures: Echocardiogram (Reviewed from 2018 ) Addt'l Information Additional Findings: EKG NSR. Patient with >4 Mets Recommendation Anesthesia Recommendation Anesthesia recommendation: OPTIMIZED for anesthesia
[2024-08-30] VITALS (8 sets, daily range): BP systolic 98–148; BP diastolic 60–104; PULSE 44–60; RESP 16–28; TEMP 36.2–36.4; O2SAT 93–98; BMI 29.4
[2024-08-30] MEDS: Lactated Ringers 1,000 ML 15 ML IV (06:16)
--- NOTE | 2024-08-30 06:30 | EGD_PTH ---
PATIENT: BECK WANG LOC: EN U#:[id number] AGE/SX: 48/M ROOM: RE08/30/[address]: Dr. Jose Luis Dao DO : 1975 BED: DIS: 08/30/2024 SPEC #: [id number] RECD: 08/30/24 11:21 STATUS: LC SOFI #: [id number] JOSÉ LUIS: 08/30/24 06:[address]: Jose Luis Dao DEPT: SURGICAL PATHOLOGY RECD BY: Jorge L Watson ENTERED: 08/30/24 13:55 SP TYPE: EGD BIOPSY TERENCE DR: Dr. Nguyễn Stark MD Tissues: A - Esophagus, NOS B - Esophagus, NOS Procedures: Surgery Specimen Level IV HEADER OPERATION: EGD - PH probe PRE-OP DIAGNOSIS: Dysphagia TISSUE SUBMITTED: A- Distal esophagus biopsy, B- Random esophagus biopsy MICROSCOPIC DIAGNOSIS A. Esophagus, distal, biopsy: Squamous mucosa with reactive changes. Columnar mucosa negative for goblet cell metaplasia. Negative for dysplasia. B. Esophagus, random, biopsy: Squamous mucosa negative for eosinophils. MICROSCOPIC DESCRIPTION Slides are reviewed. GROSS DESCRIPTION A. Received in formalin in a container labeled with the patient's name, date of , and distal esophagus biopsy are 2 yin-pink fragments of mucosal tissue each measuring 0.5 x 0.3 x 0.2 cm. Submitted in toto in A1. B. Received in formalin in a container labeled with the patient's name, date of , and random esophagus biopsy are 2 yin-pink, wispy fragments of mucosal tissue measuring 0.5 x 0.4 x 0.1 cm and 0.7 x 0.4 x 0.1 cm. Submitted in toto in B1. [facility] 08-30-2024 CPT:52601h3
--- NOTE | 2024-08-30 07:02 | PCM.HP.STD ---
HPI - General General Date of Admission: 08/30/24 Date of Service: 08/30/24 Chief Complaint: dysphagia HPI Narrative BECK WANG, is a 48 M who presents regarding globus sensation behind his cricoid cartilage and epigastric heartburn. He states eating food, especially drinking milk, helps the epigastric pain briefly and then 10 to 15 minutes later it's very painful again. He reports that manual external manipulation of his upper throat will some times alleviate the globus sensation, but not always. He has a significant vascular history of multiple aortic dissections and a stroke being managed by [facility]. His PCP has stopped his omeprazole, given him 30 days trial of vonoprazan of which he's been on for a week now but has not noticed a change in symptoms, improvement or worsening. He has been given simethicone which he states has made the most difference in his abdominal pain. has already ordered and MBSS, esophagram, and a consult to ENT. He notes that BBQ and tomatoes worsen epigastric pain. He reports a familial history of diverticula and colon cancer. [facility] Medical History Wears glasses Depression Marijuana use Fatty liver Cirrhosis High cholesterol Migraine headache Diverticulosis Heartburn Gastric reflux Former smoker History of echocardiogram Cardiology follow-up encounter Abdominal aortic aneurysm dissection Dysautonomia-like disorder Seizure GERD (gastroesophageal reflux disease) Pneumonia Hearing problem Back problem Constipation Diarrhea Nausea & vomiting Abdominal pain Heart murmur Afib History of carotid artery dissection CVA (cerebral vascular accident) Thoracoabdominal aortic dissection Hyperlipidemia Bicuspid aortic valve Home Medications ?Medication ?Instructions ?Recorded ?Last Taken ?Type aspirin 81 mg chewable tablet 81 mg PO DAILY 12/30/15 08/27/24 History clopidogrel 75 mg tablet 75 mg PO DAILY 10/26/16 08/27/24 History metoprolol succinate 25 mg 12.5 mg PO BID 02/05/20 08/30/24 History tablet,extended release 24 hr atorvastatin 40 mg tablet 40 mg PO QDAY 07/30/24 08/29/24 History famotidine 40 mg tablet 40 mg PO QHS #30 tabs 08/03/24 08/27/24 Rx pantoprazole 40 mg tablet,delayed 40 mg PO BID #60 tabs 08/03/24 08/27/24 Rx release Allergy/AdvReac Type Severity Reaction Status Date / Time oxycodone (From Percocet) Allergy Shortness Verified 08/26/24 08:40 of breath citalopram (From Celexa) AdvReac erectile Verified 08/26/24 08:40 dysfunction Family History Father CVA (cerebral vascular accident) Heart disease Hypertension Myocardial infarction Grandfather CAD (coronary artery disease) Mother CVA (cerebral vascular accident) Hypertension Heart disease IPF (idiopathic pulmonary fibrosis) Other Cervical cancer Colon cancer Diabetes Ovarian cancer Surgical History History of bilateral carotid endarterectomy History of thoracic aortic aneurysm repair (05/2018) Hx of myringotomy History of appendectomy History of vasectomy History of aortic valve replacement (06/04/18) Social History household members: none Smoking Status: Former smoker alcohol intake: never substance use type: does not use caffeine: No what type of physical activity do you participate in: walking frequency: daily duration: < 15 minutes/day seatbelt use: always do you feel safe at home: Yes ROS Constitutional Constitutional: Denies fatigue, fever(s), poor appetite, weight gain or weight loss Gastrointestinal Gastrointestinal: Denies belching, bloating, change in bowel habits, change in stool character, chewing difficulty, coffee ground emesis, constipation, cramping, diarrhea, dyspepsia, dysphagia, early satiety, excessive flatus, fecal incontinence, heartburn, hematemesis, hematochezia, hemorrhoids, loose stools, melena, nausea, odynophagia, rectal bleeding, tenesmus, vomiting or weight changes Vital Signs Vital Signs Vital Signs: 08/30/24 06:06 08/30/24 06:06 Temperature 97.6 F L Temperature Source Temporal Pulse Rate 44 L Respiratory Rate 18 Respiratory Pattern Normal Blood Pressure 148/63 H Blood Pressure Mean 91 Blood Pressure Source Monitor Blood Pressure Position Semi-Fowlers Blood Pressure Location Left Arm Pulse Ox 98 Oxygen Delivery Method Room Air Weight Weight: 182 lb 15.739 oz Body Mass Index (BMI) 29.4 Physical Exam Const alert, oriented x3, no apparent distress and healthy appearing General Appearance: cooperative GI normal to inspection, nondistended, normoactive bowel sounds, soft to palpation, non-tender and non-distended Percussion: normal to percussion Rectal Exam: deferred Assessment & Plan Assessment/Plan (1) Nausea & vomiting: (2) Dysphagia: PLAN: Assessment and Plan Assessment and Plan (1) Dysphagia: Medications: New pantoprazole 30min before breakfast and dinner 40 mg PO BID 60 tabs 2RF famotidine 40 mg PO QHS 30 tabs 2RF Discontinued omeprazole Discontinued Reason: Order Changed 20 mg PO DAILY Plan BECK WANG, is a 48 M who presents to the office today for establishment with [facility] regarding globus sensation behind his cricoid cartilage and epigastric heartburn. Discussed care plan with him. await for results of MBSS and esophagram consider esophageal manometry schedule EGD pantoprazole 40mg PO twice daily 30min before breakfast and dinner famotidine 40mg PO QHS office FU for results
--- NOTE | 2024-08-30 07:11 | PCM.PRE.AN2 ---
ASA Classification* ASA Classification ASA Classification: 2 Assessment & Plan Anesthesia* Anesthesia Assessment Anesthesia Assessment: Discussed sedation and/or anesthesia options, risks, benefits, and alternatives with patient/parents/legal guardian/POA. Questions invited. The patient/parents/legal guardian/POA seems to understand and agrees to proceed with anesthesia plan. Reviewed the physical assessment, medical history, allergy history and patient home medications list prior to surgery/procedure/anesthetic and documented any changes. Performed airway and anesthesia risk assessments. Anesthesia Type Anesthesia Type: MAC Anesthesia Focused Assessment* Temperature: 97.6 F Pulse Rate: 44 Blood Pressure: 148/63 Respiratory Rate: 18 Pulse Ox: 98 Airway Assessment Mouth opens: >3 cm Mallampati Score: II Focused Labs Anesthesia Preop lab: CBC WBC 7.5 K/mm3 (4.4-11.0) 06/07/24 13:00 06/07/24 RBC 5.45 M/mm3 (4.6-6.2) 06/07/24 13:00 06/07/24 Hgb 15.5 g/dL (13.0-16.5) 06/07/24 13:00 06/07/24 Hct 46.8 % (40-54) 06/07/24 13:00 06/07/24 Plt Count 209 K/mm3 (150-450) 06/07/24 13:00 06/07/24 CHEMISTRY Potassium 4.1 mmol/L (3.5-5.1) 06/07/24 13:00 06/07/24 Sodium 140 mmol/L (136-145) 06/07/24 13:06/07/24 BUN 14 mg/dL (7-18) 06/07/24 13:00 06/07/24 Creatinine 1.10 mg/dL (0.70-1.30) 06/07/24 13:00 06/07/24 Glucose 76 mg/dL (74-106) 06/07/24 13:00 06/07/24 POC Glucose 99 mg/dL (70-110) 06/26/20 20:27 06/26/20 TSH 3.710 uIU/mL (0.358-3.740) 06/07/24 13:00 06/07/24 COAG PT 13.9 SECONDS (11.7-14.9) 03/31/14 23:10 03/31/14 Pre-Assessment Diagnosis/Proposed Procedure Planned Operative Procedure(s): EGD WITH PH PROBE Anesthesia History 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 When Was Last Pacemaker Check QUESTION #4 FULL TEXT: You/Your Family Experience fever (hyperthermia) with Anesthesia Last Oral Intake Last Oral intake: Last Oral Intake NPO since 00:00 08/30/24 06:06 Meds taken in AM with sips of water? 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 manager Female No 08/26/24 08:47 HX of Motion Sickness No 08/26/24 08:47 HX of N/V After Surgery No 08/26/24 08:47 Non-Smoker Yes 08/26/24 08:47 Duration of Surgery greater No 08/26/24 08:47 than 60 minutes Number of Risk Factors 1 08/26/24 08:47 PONV Score Low Risk 08/26/24 08:47 Height & Weight Height & Weight: Anesthesia: Height & Weight Height 5 ft 6.14 in 08/30/24 06:06 Weight: 83 kg 08/30/24 06:06 Body Mass Index (BMI) 29.4 08/30/24 06:06 Respiratory Assessment Respiratory Assessment - real estate portfolio manager: Respiratory Tract Infection Hx - real estate portfolio manager Hx Respiratory Tract Infection No 08/26/24 08:47 STOP Sleep Apnea STOP Sleep Apnea - real estate portfolio manager: STOP Sleep Apnea - real estate portfolio manager Hx Hypertension Yes 08/26/24 08:47 Hx Sleep Apnea No 08/26/24 08:47 CPAP BIPAP Do you snore loudly (louder No 08/26/24 08:47 than talking or can be heard Do you often feel tired/ No 08/26/24 08:47 fatigued/ sleepy during daytime? Has anyone observed you stop No 08/26/24 08:47 breathing during sleep? STOP Results Negative 08/26/24 08:47 QUESTION #5 FULL TEXT : Do you snore loudly (louder than talking or can be heard through closed doors)? 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 Specify any problems Hx of Preganancy in last 3 N/A 08/26/24 08:47 Months Nurse Filling Out Transfusion [facility] 08/26/24 08:47 & Questions: Date: 08/26/24 08/26/24 08:47 Time: 08:59 08/26/24 08:47 Patient unable to answer at this time (ie. 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: /Reproductive Hx- real estate portfolio manager Hx Now Gestational Age (in weeks): EDC: Hx Hx Para Hx Section SAB Active Medications Active Medications: Current Medications Generic Name Dose Route Start Last Admin Trade Name Freq PRN Reason Stop Dose Admin Lactated Ringer's 1,000 mls @ 15 mls/hr 08/30/24 06:15 08/30/24 06:16 IV 15 mls/hr .Q48H [place] Administration PFSH Medical History Wears glasses Depression Marijuana use Fatty liver Cirrhosis High cholesterol Migraine headache Diverticulosis Heartburn Gastric reflux Former smoker History of echocardiogram Cardiology follow-up encounter Abdominal aortic aneurysm dissection Dysautonomia-like disorder Seizure GERD (gastroesophageal reflux disease) Pneumonia Hearing problem Back problem Constipation Diarrhea Nausea & vomiting Abdominal pain Heart murmur Afib History of carotid artery dissection CVA (cerebral vascular accident) Thoracoabdominal aortic dissection Hyperlipidemia Bicuspid aortic valve Home Medications ?Medication ?Instructions ?Recorded ?Last Taken ?Type aspirin 81 mg chewable tablet 81 mg PO DAILY 12/30/15 08/27/24 History clopidogrel 75 mg tablet 75 mg PO DAILY 10/26/16 08/27/24 History metoprolol succinate 25 mg 12.5 mg PO BID 02/05/20 08/30/24 History tablet,extended release 24 hr atorvastatin 40 mg tablet 40 mg PO QDAY 07/30/24 08/29/24 History famotidine 40 mg tablet 40 mg PO QHS #30 tabs 08/03/24 08/27/24 Rx pantoprazole 40 mg tablet,delayed 40 mg PO BID #60 tabs 08/03/24 08/27/24 Rx release Allergy/AdvReac Type Severity Reaction Status Date / Time oxycodone (From Percocet) Allergy Shortness Verified 08/26/24 08:40 of breath citalopram (From Celexa) AdvReac erectile Verified 08/26/24 08:40 dysfunction Family History Father CVA (cerebral vascular accident) Heart disease Hypertension Myocardial infarction Grandfather CAD (coronary artery disease) Mother CVA (cerebral vascular accident) Hypertension Heart disease IPF (idiopathic pulmonary fibrosis) Other Cervical cancer Colon cancer Diabetes Ovarian cancer Surgical History History of bilateral carotid endarterectomy History of thoracic aortic aneurysm repair (05/2018) Hx of myringotomy History of appendectomy History of vasectomy History of aortic valve replacement (06/04/18) Social History household members: none Smoking Status: Former smoker alcohol intake: never substance use type: does not use caffeine: No what type of physical activity do you participate in: walking frequency: daily duration: < 15 minutes/day seatbelt use: always do you feel safe at home: Yes Review of Systems (Anesthesia) ROS Narrative System reviewed and no additional complaints, except as documented.
--- NOTE | 2024-08-30 07:35 | OP.EGD_ITS ---
Patient Name: Chad Fraga Procedure Date: 08/30/2024 6:22 AM Date of : 1975 Age: 48 Procedure: Upper GI endoscopy Indications: Epigastric abdominal pain, Functional Dyspepsia, Indigestion, Suspected esophageal reflux Providers: Jose Luis Dao DO Referring MD: Nguyễn Stark MD Medicines: Monitored Anesthesia Care Patient Profile: This is a 48 year old male. Refer to note in patient chart for documentation of history and physical. Patient has symptoms of chronic cough, chronic dysphagia, dysphagia with both liquids and solids, chronic nausea and chronic vomiting. Complications: No immediate complications. Procedure: Pre-Anesthesia Assessment: - Prior to the procedure, a History and Physical was performed, and patient medications and allergies were reviewed. The patient is competent. The risks and benefits of the procedure and the sedation options and risks were discussed with the patient. All questions were answered and informed consent was obtained. Patient identification and proposed procedure were verified by the physician in the pre-procedure area. Mental Status Examination: alert and oriented. Airway Examination: normal oropharyngeal airway and neck mobility. Respiratory Examination: clear to auscultation. CV Examination: normal. Prophylactic Antibiotics: The patient does not require prophylactic antibiotics. Prior Anticoagulants: The patient has taken no anticoagulant or antiplatelet agents except for NSAID medication. ASA Grade Assessment: II - A patient with mild systemic disease. After reviewing the risks and benefits, the patient was deemed in satisfactory condition to undergo the procedure. The anesthesia plan was to use monitored anesthesia care (MAC). Immediately prior to administration of medications, the patient was re-assessed for adequacy to receive sedatives. The heart rate, respiratory rate, oxygen saturations, blood pressure, adequacy of pulmonary ventilation, and response to care were monitored throughout the procedure. The physical status of the patient was re-assessed after the procedure. After obtaining informed consent, the endoscope was passed under direct vision. Throughout the procedure, the patient's blood pressure, pulse, and oxygen saturations were monitored continuously. The Endoscope was introduced through the mouth, and advanced to the second part of duodenum. The upper GI endoscopy was accomplished without difficulty. The patient tolerated the procedure well. Scope In: 7:19:17 AM Scope Out: 7:28:18 AM Total Procedure Duration Time 0 hours 9 minutes 1 second Findings: No gross lesions were noted in the entire esophagus. Biopsies were obtained from the proximal and distal esophagus with cold forceps for histology of suspected eosinophilic esophagitis. The Z-line was irregular and was found 36 cm from the incisors. Biopsies were taken with a cold forceps for histology. Verification of patient identification for the specimen was done. Estimated blood loss was minimal. The SEBASTIAN capsule with delivery system was introduced through the mouth and advanced into the esophagus, such that the SEBASTIAN pH capsule was positioned 36 cm from the incisors, which was 6 cm proximal to the GE junction. Suction was applied to the well of the SEBASTIAN pH capsule to suck in the adjacent mucosa of the esophagus using the external vacuum pump set at a minimum vacuum pressure of 550 mmHg for 30 seconds. The SEBASTIAN pH capsule was then deployed by depressing the plunger on top of the handle to advance the locking pin into the mucosa, thereby attaching the capsule to the esophagus. The plunger was then rotated a quarter turn clockwise to release the capsule from the delivery system. The delivery system was then withdrawn. Endoscopy was utilized for probe placement and diagnostic evaluation. No gross lesions were noted in the entire examined stomach. The cardia and gastric fundus were normal on retroflexion. No gross lesions were noted in the entire examined duodenum. Impression: - No gross lesions in the entire esophagus. - Z-line irregular, 36 cm from the incisors. Biopsied. - No gross lesions in the entire stomach. - No gross lesions in the entire examined duodenum. - Biopsies were taken with a cold forceps for evaluation of eosinophilic esophagitis. - The SEBASTIAN pH capsule was positioned 36 cm from the incisors, which was 6 cm proximal to the GE junction. Recommendation: - Discharge patient to home. - Resume previous diet. - Continue present medications. - Await pathology results. Procedure Code(s): --- Professional --- 35400, Esophagogastroduodenoscopy, flexible, transoral; with biopsy, single or multiple CPT copyright 2021 [employer]. All rights reserved. The codes documented in this report are preliminary and upon surveying crew rodman review may be revised to meet current compliance requirements. Jose Luis Dao DO 08/30/2024 7:33:53 AM This report has been signed electronically. Number of Addenda: 0 Note Initiated On: 08/30/2024 6:22 AM
--- NOTE | 2024-08-30 07:35 | OP.CCLET_ITS ---
08/30/2024 Nguyễn Stark MD [address] [place] [address] Re : Upper GI endoscopy procedure for Chad Flakito Dear Dr. Stark This procedure was performed on Friday, August 30, 2024. My impressions and recommendations are as follows: Impressions : - No gross lesions in the entire esophagus. - Z-line irregular, 36 cm from the incisors. Biopsied. - No gross lesions in the entire stomach. - No gross lesions in the entire examined duodenum. - Biopsies were taken with a cold forceps for evaluation of eosinophilic esophagitis. - The SEBASTIAN pH capsule was positioned 36 cm from the incisors, which was 6 cm proximal to the GE junction. Recommendations : - Discharge patient to home. - Resume previous diet. - Continue present medications. - Await pathology results. My findings are described in the full procedure note, which is enclosed. If I can be of further assistance, please feel free to contact me at . Sincerely, Jose Luis Dao, 08/30/2024 7:33:53 AM This report has been signed electronically.
--- NOTE | 2024-08-30 07:42 | PCM.POST.ANE ---
Anesthesia: Postop Eval I Current Vital Signs Temperature: 97.1 F Pulse Rate: 58 Blood Pressure: 120/104 Respiratory Rate: 16 Pulse Ox: 93 Oxygen Delivery Method: Nasal Cannula Oxygen Flow Rate (L/min): 3 Assessment Airway patent: Yes Spontaneous unlabored respirations: Yes Mental status: Awake nausea: No Vomiting: No Anesthesia Complication: No Fluid Hydration Crystalloid volume administer (ml): 300 Total IV fluid infused: 300 Progress Note Anesthesia document: Postop Eval 1 completed: Yes
--- NOTE | 2024-08-30 08:04 | POSTOPAN2_ITS ---
Anesthesia Postop Eval I Sum Postop Eval Completion status Anesthesia document: Postop Eval 1 completed: Yes Anesthesia Postop Eval I Summary Anesthesia Postop Eval I Summary: Anesthesia Postop Eval I: Assessment Summary Airway patent Yes 08/30/24 07:43 GLASS BLOWING INSTRUCTOR.[email or web address] Spontaneous unlabored Yes 08/30/24 07:43 GLASS BLOWING INSTRUCTOR.SOBR respirations Mental status Awake 08/30/24 07:43 GLASS BLOWING INSTRUCTOR.SOBR nausea No 08/30/24 07:43 GLASS BLOWING INSTRUCTOR.SOBR Vomiting No 08/30/24 07:43 GLASS BLOWING INSTRUCTOR.SOBR Anesthesia Postop Eval I: Fluid Summary Crystalloid volume administer 300 08/30/24 07:43 GLASS BLOWING INSTRUCTOR.SOBR (ml) Colloids volume administered ( ml) Blood Product volume administered (ml) Total IV fluid infused 300 08/30/24 07:43 GLASS BLOWING INSTRUCTOR.SOBR Anesthesia Postop Eval I: Summary Notes Anesthesia Complication No 08/30/24 07:43 GLASS BLOWING INSTRUCTOR.SOBR Anesthesia Complication Comment: Post-operative progress note Anesthesia: Postop Eval II Evaluation Mental status: Awake Pain Level: 0 nausea: No Vomiting: No
--- NOTE | 2024-08-30 08:04 | PCM.POSTANE2 ---
Anesthesia Postop Eval I Sum Postop Eval Completion status Anesthesia document: Postop Eval 1 completed: Yes Anesthesia Postop Eval I Summary Anesthesia Postop Eval I Summary: Anesthesia Postop Eval I: Assessment Summary Airway patent Yes 08/30/24 07:43 ELEMENTARY INSTRUCTIONAL COACH.SOBR Spontaneous unlabored Yes 08/30/24 07:43 ELEMENTARY INSTRUCTIONAL COACH.SOBR respirations Mental status Awake 08/30/24 07:43 ELEMENTARY INSTRUCTIONAL COACH.SOBR nausea No 08/30/24 07:43 ELEMENTARY INSTRUCTIONAL COACH.SOBR Vomiting No 08/30/24 07:43 ELEMENTARY INSTRUCTIONAL COACH.SOBR Anesthesia Postop Eval I: Fluid Summary Crystalloid volume administer 300 08/30/24 07:43 ELEMENTARY INSTRUCTIONAL COACH.SOBR (ml) Colloids volume administered ( ml) Blood Product volume administered (ml) Total IV fluid infused 300 08/30/24 07:43 ELEMENTARY INSTRUCTIONAL COACH.SOBR Anesthesia Postop Eval I: Summary Notes Anesthesia Complication No 08/30/24 07:43 ELEMENTARY INSTRUCTIONAL COACH.SOBR Anesthesia Complication Comment: Post-operative progress note Anesthesia: Postop Eval II Evaluation Mental status: Awake Pain Level: 0 nausea: No Vomiting: No
== END 2024-08-30 08:27 | disposition home or self-care (01) ==
LOC: EN 05:33 → AC 05:34
PROVIDERS: PCP Family Medicine Geriatric Medicine; Referring Provider Family Medicine Geriatric Medicine; Visit Provider Internal Medicine Gastroenterology
PROC: (CPT 43235; principal; 2024-08-30 06:25)
DX: R13.10 Dysphagia, unspecified (principal); K21.9 Gastro-esophageal reflux disease without esophagitis; E78.00 Pure hypercholesterolemia, unspecified; Z79.02 Long term (current) use of antithrombotics/antiplatelets; Z79.899 Other long term (current) drug therapy; Z79.82 Long term (current) use of aspirin; Z87.891 Personal history of nicotine dependence
CPT/HCPCS: 43239; 88305

== ENCOUNTER → 2024-09-07 | Outpatient (CLI) | payer MEDICARE, MEDICAID, SELFPAY ==
--- NOTE | 2024-09-07 14:20 | SP.MBSS_ITS ---
Modified Barium Swallow Patient Information Study Date: 09/07/24 Study Time: 13:00 Direct Billable Minutes: 77 Total Minutes procedure & reportin Diagnosis: Dysphagia R13.10 Referring Physician: Nguyễn Stark Chi Reason for Referral: Assess swallow function, assess risk for aspiration, and determine recommendations for least restrictive diet textures and compensatory strategies to improve safety of swallow. Medical History: PMH: Abdominal aortic aneurysm dissection, Dysautonomia-like disorder, Seizure, GERD, PNA,?Hearing problem, Constipation, Diarrhea, Nausea & vomiting, Abdominal pain, Heart murmur, Afib, History of carotid artery dissection, CVA, Thoracoabdominal aortic dissection, HLD, Bicuspid aortic valve. Surgical Hx: History of bilateral carotid endarterectomy, History of thoracic aortic aneurysm repair (05/2018), Hx of myringotomy, History of appendectomy, History of aortic valve replacement (06/04/18). The patient has been following w/ GI for management of globus sensation behind his cricoid cartilage and epigastric heartburn. His PCP referred MBSS, esophagram, and ENT consult. Per patient report, ENT work up negative for any abnormal findings. He denies difficulty swallowing food/drink, but reports very bad indigestion after eating/drinking and globus sensation at all times. He has some pain swallowing after EGD, but patient was told this should go away in ~2 weeks. Hx of PNA, but this occurred 20 years ago. Hx of CVA ~10 years ago, but pt denied speech or swallowing difficulty after his CVA. EGD 08/30/2024: ?Impression: - No gross lesions in the entire esophagus. - Z-line irregular, 36cm from the incisors. Biopsied. - No gross lesions in the entire stomach. - No gross lesions in the entire examined duodenum. - Biopsies were taken with a cold forceps for evaluation of eosinophilic esophagitis. - The SEBASTIAN pH capsule was positioned 36 cm from the incisors, which was 6 cm proximal to the GE junction.? Current Diet Ordered: Regular textures / Thin liquids Dentition: Natural Teeth and Missing Teeth Mental Status: WNL Respiratory Status: Oxygenating on Room Air Penetration-Aspiration Scale Penetration-Aspiration Scale: OBJECTIVE ASSESSMENT OF SWALLOW FUNCTION (QUANTITATIVE ? PER TRIAL): PENETRATION / ASPIRATION SCALE (WHITE): 1 = does not enter airway 2 = enters airway/above vocal folds/ejected 3 = enters airway/above vocal folds/not ejected 4 = enters airway/contacts vocal folds/ejected 5 = enters airway/contacts vocal folds/not ejected 6 = enters airway/below vocal folds/ejected 7 = enters airway/below vocal folds/not ejected despite effort 8 = enters airway/below vocal folds/no effort VIDEOFLOROSCOPIC SCALE SCORE (WHITE): Grade I = aspiration of material that has penetrated into the laryngeal vestibule, intact cough reflex Grade II = aspiration < 10 % of the bolus, intact cough reflex Grade III = aspiration of < 10 % of the bolus, reduced cough reflex or aspiration of > 10 % of the bolus, intact cough reflex Grade IV = aspiration of > 10 % of the bolus, reduced cough reflex Penetration-Aspiration Scale Score Thin Liquid via teaspoon: Result: 1= does not enter airway Thin Liquid via teaspoon Trial 2: Result: 1= does not enter airway Thin Liquid via large single sip: cup: Result: 1= does not enter airway Thin Liquid via sequential sips: cup: Result: 2= enter airway/above vocal folds/ejected [place] Thick Liquid via large single sip: cup: Result: 1= does not enter airway Pudding via teaspoon: Result: 1= does not enter airway Comment: Esophageal screen - Retention throughout the middle and lower esophagus. Thin Liquid via single sip: straw: Result: 1= does not enter airway Comment: Esophageal screen - Liquid wash somewhat cleared retention of barium pudding in the esophagus; however, continued retention in the middle esophagus. 1/2 Cookie: Result: 1= does not enter airway Comment: Esophageal screen - Retention in the middle esophagus. Oral Phase Labial Seal: No Labial Escape Tongue Control During Bolus Hold: Cohesive bolus between tongue to palatal seal Bolus Preparation/Mastication: Timely and efficient chewing and mashing Bolus Transport/Lingual Motion: Brisk tongue motion Oral Residue: Trace residue lining oral structures Pharyngeal Phase Initiation of Pharyngeal Swallow: Bolus head in valleculae Soft Palate Elevation: Trace column of contrast/air between soft palate and pharyngeal wall Laryngeal Elevation: Comp. Superior move thyroid cart w/comp. apprx arytenoid cart-epig pet Anterior Hyoid Excursion: Partial anterior movement Epiglottic Movement: Complete inversion Laryngeal Vestibule Closure at Height of Swallow: Incomplete; narrow column of air/contrast in laryngeal vestibule (trace laryngeal penetration of sequential thin w/ complete ejection) Pharyngeal Stripping Wave: Present - complete Pharyngoesophageal Segment Opening: Parital distension and partial duration; parital obstruction of flow Tongue Base Retraction: Trace column of contrast between tongue base & post. pharyngeal wall Pharyngeal Residue: Trace residue within or on pharyngeal structures Esophageal Phase Esophageal Clearance: Esophageal retention w/ retrograde flow through pharyngoesophageal seg Diagnosis/Impression Diagnosis: Esophageal dysphagia R13.14; Oropharyngeal swallow function grossly WNL Impression: Oropharyngeal swallow function is grossly WNL. The esophageal phase is marked by... -Trace retention of sequential sips of thin liquids in the UES w/ minimal retrograde flow to the pyriform sinuses. -Retention of pudding in the middle and lower esophagus, which somewhat cleared w/ liquid wash. -Retention of cookie in the middle esophagus. Other findings: Carotid stent, aortic stent, aortic valve replacement, wired sternum, and Sebastian pH capsule from recent EGD all observed during the study. Findings consistent w/ cardiac and esophageal hx in PMH above. Recommendations Diet: Regular Textures and Thin Liquids Compensatory Strategies: Small Bites, Small Sips, Slow Rate, Alternate bites/solids and sips/liquids and Sitting upright (During and 30-60min after meals) Recommend Repeat Modified Barium Swallow: No Need for Skilled Speech Therapy Services: No Recommended Referrals: GI Consult (Follow w/ GI to manage esophageal dysphagia. Pt is ok for participation in barium esophagram.) Education Completed: 1. Described result of evaluation. and 2. Pt understands evaluation & agrees with goals and treatment plan. Status Active ST Patient: Active Contact Information [facility] Speech Therapy:: Karina Dodd M.A. CCC-GRINDING MACHINE OPERATOR? Speech-Language Pathologist?? [facility] [address] [place] [address]? [email or web address]?? [phone]
== END | disposition home or self-care (01) ==
LOC: RAD 12:53
PROVIDERS: PCP Family Medicine Geriatric Medicine; Referring Provider Family Medicine Geriatric Medicine; Visit Provider Family Medicine Geriatric Medicine
DX: R13.10 Dysphagia, unspecified (principal)
CPT/HCPCS: 74230; 92611

== ENCOUNTER → 2024-09-23 | Outpatient (CLI) | payer MEDICARE, MEDICAID, SELFPAY ==
--- NOTE | 2024-09-23 10:15 | RAD_ITS ---
PROCEDURE: ESOPHAGUS DUAL CONTRAST 09/23/2024 REASON FOR EXAM: DYSPHAGIA TECHNIQUE: The patient ingested barium. Multiple images were obtained. Fluoroscopy: 33 seconds. 4.5 mGy. COMPARISON: None FINDINGS: The esophagus is unremarkable. No evidence of obstruction. No evidence of gastroesophageal reflux. The patient ingested a 12 mm tablet the barium without any difficulty. There is evidence of prior aortic stenting. RAD/Esophagus Dual Contrast IMPRESSION: Unremarkable dual contrast esophagram. Reading Location: [facility]--1
== END | disposition home or self-care (01) ==
PROVIDERS: PCP Family Medicine Geriatric Medicine; Referring Provider Family Medicine Geriatric Medicine; Visit Provider Family Medicine Geriatric Medicine
DX: R13.10 Dysphagia, unspecified (principal)
CPT/HCPCS: 74221

== ENCOUNTER → 2024-12-01 | Outpatient (CLI) | payer MEDICARE, MEDICAID, SELFPAY ==
[2024-12-01 13:44] LABS: Hematocrit 45.0 % (40-54); Hemoglobin 15.5 g/dL (13.0-16.5); Immature Granulocytes Count 0.020 X10^3/uL (0.0-0.0); Mean Corp Hgb Conc 34.4 g/dL (32-36); Mean Corpuscular Volume 84.6 fL (80-94); Mean Platelet Vol. 10.6 fl (6.2-12.0); NRBC Flagged by Analyzer 0 % (0-5); Platelet Count 222 K/mm3 (150-450); RBC Distribution Width CV 12.3 % (11.6-14.6); RBC Distribution Width SD 37.1 fl (35.1-43.9); Red Blood Count 5.32 M/mm3 (4.6-6.2); White Blood Count 6.3 K/mm3 (4.4-11.0)
[2024-12-01 14:32] LABS: AST(SGOT) 29 U/L (<=37); Alanine Aminotransfer ALT/SGPT 28 U/L (<=46); Albumin, Serum 4.3 g/dL (3.5-5.0); Alkaline Phosphatase 108 U/L (40-129); Anion Gap 11 (5-15); BUN 13 mg/dL (4-19); BUN/Creat Ratio 11.0 RATIO (10-20); Calcium,Total 9.4 mg/dL (7.6-11.0); Carbon Dioxide 25.1 mmol/L (21.0-32.0); Chloride 106 mmol/L (98-108); Cholesterol 117 mg/dL (<=200); Globulin 2.4 g/dL (2.2-4.2); Glucose 92 mg/dL (70-99); Low Density Lipoprotein Calc. 55 mg/dL; Potassium 4.4 mmol/L (3.3-5.1); Triglycerides 115 mg/dL; Very Low Density Lipoprotein 23 mg/dL (5-40); cholesterol:hdl ratio screen 2.98
--- OUTSIDE RECORDS SUMMARY | 2024-12-01 19:40 | XMS RPT_ITS | CCD ---
Author Organization [facility] Care Team Providers Care Arboriculturist Name Role Phone PROVIDER, UNKNOWN Unavailable Unavailable Bishop Wilkins Unavailable Unavailable BULMARO RIOS Unavailable Unavailable TORRI DOWNS Unavailable Unavailabl e COURSON, TORRI HART Unavailable Unavailabl e TOYAONTORRI Unavailable Unavailabl e BAVISJAZMIN Unavailable Unavailable LAHORRADHEERAJ Unavailable Unavailable TORRI DOWNS Unavailable Unavailabl e BAVJAZMIN ACE Referring Unavailable LINCOLN, NGUYỄN-CHI Primary Care Unavailable DAVION DOWNS Admitting Unavailable DAVION DOWNS Attending Unavailable LINCOLN, NGUYỄN-CHI Primary Care Unavailable LAHORRADHEERAJ Attending Unavailable DAVION DOWNS Referring Unavailable LINCOLN, NGUYỄN-CHI Primary Care Unavailable DAVION DOWNS Attending Unavailable JAZMIN ORTIZ Referring Unavailable LINCOLN, NGUYỄN-CHI Primary Care Unavailable Lincoln, Nguyễn Chi Primary Care Provider [phone] Thierno Dominik S Unavailable Jazmin Ortiz MD Unavailable Braden PLATFORM ENGINEER, Magaly Unavailable Unavailable Dr. Nguyễn Stark Chi Primary Care Provider Dr. Ernesto Mendoza Attending Provider Nguyễn Stark Chi Primary Care Provider Thierno, [place] S Unavailable Jazmin Ortiz MD Unavailable Braden PLATFORM ENGINEER, Magaly Unavailable Unavailable Harjit Thorpe MD Unavailable Dr. Nguyễn Stark Chi Referring Provider María RENEWALS REPRESENTATIVE, RENEWALS REPRESENTATIVE-C Karoline Attending Provider Ovidio Pa MDril S Unavailable Braden PLATFORM ENGINEER, Magaly Unavailable Unavailable Maurilio MCCOLLUM, Harjit E Unavailable [phone] LINCOLN, NGUYỄN CHI Primary Care Unavailable SHARON PEARL Attending Unavailable Lincoln, Nguyễn Chi Primary Care Provider Anneliese MCCOLLUM, Jazmin Hernandez Unavailable Sharon PLATFORM ENGINEER, Magaly N Unavailable Unavaila ble Jazmin Ortiz MD Unavailable LINCOLN, NGUYỄN CHI Primary Care Unavailable ROSELLI, HARJIT E Referring Unavailable LINCOLN, NGUYỄN CHI Primary Care Unavailable ROSELLI, HARJIT E Referring Unavailable KEELY EUBANKS Attending Unavailable Lincoln MCCOLLUM, Dr. Nguyễn Gutierres Primary Care Provider [phone] Lincoln MCCOLLUM, Dr. Nguyễn Gutierres Attending Provider Lincoln MCCOLLUM, Dr. Nguyễn Gutierres Referring Provider Chris DIA-CBrittney Attending Provider Dr. Jose Luis Dao DO Attending Provider Dr. Jose Luis Dao DO Other Provider Lincoln, Nguyễn Chi Referring Unavailable Jose Luis Dao Attending Unavailable Jose Luis Dao Consulting Unavailable Lincoln, Nguyễn Chi Primary Care Unavailable Lincoln, Nguyễn Chi Primary Care Unavailable Jean Vinnie Attending Unavailable Lincoln, Nguyễn Chi Primary Care Unavailable Lincoln, Nguyễn Chi Referring Unavailable Lincoln, Nguyễn Chi Attending Unavailable Lincoln, Nguyễn Chi Referring Unavailable Lincoln, Nguyễn Chi Attending Unavailable Lincoln, Nguyễn Chi Primary Care Unavailable Lincoln, Nguyễn Chi Referring Unavailable Lincoln, Nguyễn Chi Attending Unavailable Lincoln, Nguyễn Chi Primary Care Unavailable Lincoln, Nguyễn Chi Referring Unavailable Lincoln, Nguyễn Chi Attending Unavailable Lincoln, Nguyễn Chi Primary Care Unavailable Lincoln, Nguyễn Chi Referring Unavailable Jose Luis Dao Attending Unavailable Lincoln, Nguyễn Chi Primary Care Unavailable Lincoln, Nguyễn Chi Attending Unavailable Lincoln, Nguyễn Chi Primary Care Unavailable Lincoln, Nguyễn Chi Primary Care Unavailable Brittney Perez Attending Unavailable Lincoln, Nguyễn Chi Referring Unavailable Lincoln, Nguyễn Chi Referring Unavailable Lincoln, Nguyễn Chi Primary Care Unavailable Brittney Perez Attending Unavailable Allergies Allergy Classification Reported Allergen(s) Allergy Type Date of Onset Reaction(s) Facility (20 sources) acetaminophen / oxyCODONE; Translations: [OXYCODONE-ACETAM INOPHEN] Drug Allergy 7 Shortness of Breath [facility] Other [place] [facility] (20 sources) atorvastatin Drug Allergy 8 Other: See Comments [facility] (20 sources) Citalopram; Translations: [CITALOPRAM] Drug Allergy 7 Other: See Comments [facility] (20 sources) oxyCODONE Drug Allergy 7 Shortness of Breath [facility] (20 sources) Acetaminophen Drug Allergy 7 Shortness of Breath [facility] (1 source) atorvastatin Drug Allergy 5 [facility] (1 source) Citalopram Drug Allergy 5 [facility] (1 source) oxyCODONE Drug Allergy 5 [facility] Medications Current Medications Medication Drug Class(es) Dates Sig (Normalized) Sig (Original) amoxicillin 500 mg oral tablet (20 sources) Penicillin-class Antibacterial Start: 06-16-2015 Amoxicillin 500 mg tablet Take 500 mg by mouth as needed. Before dental procedures 06/16/2015 Active Comment on above: Take 500 mg by mouth as needed. Before dental procedures aspirin 81 mg chewable tablet (20 sources) Platelet Aggregation Inhibitor, Nonsteroidal Anti-inflammatory Drug Start: 12-30-2015 take 1 tablet by mouth once daily Aspirin 81 MG tablet,chewable Active 81 mg PO DAILY December 30, 2015 12:00am Comment on above: Take 81 mg by mouth once daily. atorvastatin 40 mg oral tablet (20 sources) HMG-CoA Reductase Inhibitor Start: 03-08-2022 take 1 tablet by mouth once daily Atorvastatin 40 mg tablet Active 40 mg PO daily July 30, 2024 12:00am Start: 10-26-2016 End: 05-07-2017 take 1 tablet by mouth once daily Atorvastatin 10 MG tablet Discontinued 10 mg PO DAILY October 26, 2016 12:00am May 07, 2017 1:05pm Comment on above: Take 40 mg by mouth once daily. chlorhexidine gluconate 1.2 mg/ml mouthwash (2 sources) Start: 06-28-19 End: 07-06-19 Chlorhexidine Gluconate (PERIDEX) 0.12 % solution Use 15 mL as instructed twice daily. Rinse mouth with three (3) teaspoonsful (15mL) for 30 seconds. 473 mL 2 06/27/2022 07/05/2022 Discontinued Comment on above: Use 15 mL as instruc kiah twice daily. Rinse mouth with three (3) teaspoonsful (15mL) for 30 seconds. clopidogrel 75 mg oral tablet (20 sources) P2Y12 Platelet Inhibitor Start: 10-27-19 take 1 tablet by mouth once daily Clopidogrel 75 MG tablet Active 75 mg PO DAILY October 26, 2016 12:00am Comment on above: Take 75 mg by mouth once daily. docusate sodium 50 mg / sennosides, retirement 8.6 mg oral tablet (1 source) Start: 07-06-19 End: 07-20-19 take 1 tablet by mouth twice daily senna-docusate (SENNA-S) 8.6-50 mg per tablet Take 1 tablet by mouth twice daily for 14 days. 28 tablet 0 07/05/2022 07/19/2022 Active Comment on above: Take 1 tablet by [facility] twice daily for 14 days. famotidine 40 mg oral tablet (20 sources) Histamine-2 Receptor Antagonist Start: 08-04-19 End: 10-05-19 take 1 tablet by mouth at bedtime Famotidine 40 mg tablet Active 40 mg PO AT BEDTIME 90 October 04, 2024 2:13pm Start: 10-26-2016 End: 07-15-2017 take 1 tablet by mouth once daily Famotidine 40 MG tablet Discontinued 40 mg PO DAILY October 26, 2016 12:00am July 15, 2017 3:31pm metoprolol tartrate 25 mg oral tablet (20 sources) beta-Adrenergic Angela Start: 05-27-2022 End: 05-14-2024 metoprolol tartrate, short acting, (LOPRESSOR) 25 mg tablet TAKE ONE-HALF (ONE-HALF) OF A TABLET BY MOUTH TWICE DAILY 90 tablet 3 05/14/2024 Active Start: 05-17-2021 take 0.5 tablet by m outh twice daily metoprolol tartrate, short acting, (LOPRESSOR) 25 mg tablet Take 0.5 tablets by mouth twice daily. 60 tablet 5 05/17/2021 Active Start: 02-05-2020 take 0.5 tablet by m outh twice daily at bedtime Metoprolol Succinate 25 MG tablet extended release 24 hr Active 12.5 mg PO TWICE A DAY February 05, 2020 8:56pm 25 mg PO 0.5 tablet at bedtime Start: 05-19-2017 End: 02-05-2020 take 0.5 tablet by mouth every twenty-four hours at bedtime Metoprolol Succinate 25 mg tablet extended release 24 hr Discontinued 25 mg PO .COMPLEX 45 March 03, 2018 2:09pm February 05, 2020 8:56pm 25 mg PO 0.5 tablet at bedtime Start: 10-26-2016 End: 05-19-2017 take 1 tablet by mouth once daily Metoprolol Succinate 25 MG tablet extended release 24 hr Discontinued 25 mg PO DAILY October 26, 2016 12:00am May 19, 2017 2:15pm Comment on above: Take 0.5 tablets by mouth twice daily. TAKE 1/2 (ONE-HALF) OF A TABLET TWICE DAILY TAKE ONE-HALF (ONE-H NURSING HOME) OF A TABLET BY MOUTH TWICE DAILY Multivitamin capsule (20 sources) take 1 capsule by mouth once daily Multivitamin capsule Take 1 capsule by mouth once daily. Active take 1 capsule by mouth once yunior ly Multivitamin capsule Take 1 capsule by mouth once daily. 0 Suspended take 1 capsule by mouth once yunior ly Multivitamin capsule Take 1 capsule by mouth once daily. 0 Active Comment on above: Take 1 capsule by [facility] once daily. Multivitamin With Iron (5 sources) Start: 01-02-2018 Multivitamin With Iron Active 1 EACH PO DAILY January 01, 2018 11:00pm Start: 01-02-2018 Multivitamin W ith Iron Active 1 EACH PO DAILY January 02, 2018 12:00am mupirocin 0.02 mg/mg topical ointment (4 sources) RNA Synthetase Inhibitor Antibacterial Start: 06-26-2022 End: 07-05-2022 mupirocin (BACTROBAN) 2 % ointment Apply a small amount in each nostril using a cotton swab twice the day before surgery and once the morning of surgery. 22 g 0 06/26/2022 07/05/2022 Discontinued Comment on above: Apply a small amount in each nostril using a cotton swab twice the day before surgery and once the morning of surgery. pantoprazole 40 mg delayed release oral tablet (5 sources) Proton Pump Inhibitor Start: 10-04-2024 take 1 tablet by mouth once daily in the morning Pantoprazole 40 mg tablet,delayed release (DR/EC) Active 40 mg PO EVERY MORNING 90 October 04, 2024 2:11pm 30min before breakfast and dinner Start: 08-03-2024 End: 10-04-2024 take 1 tablet by mouth twice daily 30 minutes before breakfast Pantoprazole 40 mg tablet,delayed release (DR/EC) Discontinued 40 mg PO TWICE A DAY 60 August 03, 2024 12:00am October 04, 2024 2:13pm 30min before breakfast and dinner perflutren lipid microsphere s 1.3 mL in NaCl (PF) 0.9% 10 mL injection (DEFINITY) (20 sources) Start: 07-05-2022 End: 10-04-2023 perflutren lipid microsphere s 1.3 mL in NaCl (PF) 0.9% 10 mL injection (DEFINITY) Start: 02-07-2022 End: 06-30-2022 perflutren lipid microsphere s 1.3 mL in NaCl (PF) 0.9% 10 mL injection (DEFINITY) Start: 02-07-2022 End: 05-09-2023 perflutren lipid microsphere s 1.3 mL in NaCl (PF) 0.9% 10 mL injection (DEFINITY) Start: 02-08-2021 End: 05-10-2022 perflutren lipid microsphere s 1.3 mL in NaCl (PF) 0.9% 10 mL injection (DEFINITY) simethicone 80 mg chewable tablet (1 source) Start: 07-28-2024 take 1 tablet by mouth every six hours as needed simethicone, chewable (MYLICON) 80 mg chewable tablet Take 80 mg by mouth every 6 hours as needed. 07/28/2024 Active 125 ml sodium chloride 9 mg/ml prefilled syringe (20 sources) Start: 02-08-2021 End: 10-04-2023 sodium chloride 0.9 % (flush) 10 mL (BD POSIFLUSH) vonoprazan (VOQUEZNA) 20 mg tablet (1 source) take 1 tablet by mouth once daily vonoprazan (VOQUEZNA) 20 mg tablet Take 20 mg by mouth once daily. Active Completed/Discontinued Medications Medication Drug Class(es) Dates Sig (Normalized) Sig (Original) ALPRAZolam 0.25 mg oral tablet (20 sources) Benzodiazepine Start: 02-19-2018 End: 07-09-2018 take 1 tablet by mouth twice daily Alprazolam (Xanax) 0.25 mg tablet Discontinued 0.25 mg PO TWICE A DAY February 19, 2018 1:00am July 09, 2018 11:32am Start: 03-20-2017 End: 07-15-2017 take 1 tablet by mouth once daily as needed for anxiety Alprazolam 0.25 MG tablet Discontinued 0.25 mg PO DAILY NEEDED as needed for Anxiety March 20, 2017 1:00am July 15, 2017 3:31pm citalopram 10 mg oral tablet (20 sources) Serotonin Reuptake Inhibitor Start: 05-10-2022 End: 07-30-2024 take 1 tablet by mouth once daily Citalopram (Celexa) 10 mg tablet Discontinued 10 mg PO DAILY May 10, 2022 1:00am July 30, 2024 2:06pm Comment on above: Take 10 mg by mouth once daily. fluticasone propionate 0.05 mg/actuat metered dose nasal spray (17 sources) Corticosteroid Start: 02-19-2018 End: 07-09-2018 Fluticasone Propionate (Flonase Allergy Relief) 50 mcg/actuation spray,suspension Discontinued 1 NMA INTRANASAL DAILY February 19, 2018 1:00am July 09, 2018 11:32am Start: 02-19-2018 End: 07-09-2018 Fluticasone Propionate (Flon ase Allergy Relief) 50 mcg/actuation spray,suspension Discontinued 1 SPRAY INTRANASAL DAILY February 19, 2018 12:00am July 09, 2018 10:32am iv contrast (will be provided with radiology test) (10 sources) Start: 08-19-2024 inject 1 dose intravenously once iv contrast (will be provided with radiology test) Indications: Dissection of thoracoabdominal aorta (HCC) , S/P AVR (aortic valve replacement) , S/P ascending aortic replacement , H/O aortic root repair , H/O aortic arch replacement , S/P insertion of endovascular thoracic aortic stent graft , Encounter for other preprocedural examination CTA CHEST (NONGATED) ABD/PEL WO/W IVCON - No IV access, insert saline lock prior to the sedation, infusion, injection for imaging exam. Discontinue saline lock post exam. If Pt. has a central line or IVAD, may access for administration according to line specific nursing protocol. Once exam is complete flush line and de-access according to line specific nursing protocol in the CT contrast administration guidelines link. 1 each 08/19/2024 Active Start: 07-04-2022 End: 07-05-2022 inject 1 dose intravenously once iv contrast (will be provided with radiology test) CTA CHEST (NONGATED) ABD/PEL WO/W IVCON - No IV access, insert saline lock prior to the sedation, infusion, injection for imaging exam. Discontinue saline lock post exam. If Pt. has a central line or IVAD, may access for administration according to line specific nursing protocol. Once exam is complete flush line and de-access according to line specific nursing protocol in the CT contrast administration guidelines link. 1 Each 0 07/04/2022 07/05/2022 Active Start: 06-25-2022 End: 06-26-2022 inject 1 dose intravenously once iv contrast (will be provided with radiology test) CTA Head/Neck WO/W No IV access, insert saline lock prior to the sedation, infusion, injection for imaging exam. Discontinue saline lock post exam. If Pt. has a central line or IVAD, may access for administration according to line specific nursing protocol. Once exam is complete flush line and de-access according to line specific nursing protocol in the CT contrast administration guidelines link. 1 Each 0 06/25/2022 06/26/2022 Start: 06-25-2022 End: 06-26-2022 inject 1 dose intravenously once iv contrast (will be provided with radiology test) CTA Head/Neck WO/W No IV access, insert saline lock prior to the sedation, infusion, injection for imaging exam. Discontinue saline lock post exam. If Pt. has a central line or IVAD, may access for administration according to line specific nursing protocol. Once exam is complete flush line and de-access according to line specific nursing protocol in the CT contrast administration guidelines link. 1 Each 0 06/25/2022 06/26/2022 Active Start: 02-07-2022 End: 02-08-2022 inject 1 dose intravenously once iv contrast (will be provided with radiology test) CTA Chest. No IV access, insert saline lock prior to the sedation, infusion, injection for imaging exam. Discontinue saline lock post exam. If Pt. has a central line or IVAD, may access for administration according to line specific nursing protocol. Once exam is complete flush line and de-access according to line specific nursing protocol in the CT contrast administration guidelines link. 1 Each 0 02/07/2022 02/08/2022 Active Comment on above: CTA Chest. No IV acc ess, insert saline lock prior to the sedation, infusion, injection for imaging exam. Discontinue saline lock post exam. If Pt. has a central line or IVAD, may access for administration according to line specific nursing protocol. Once exam is complete flush line and de-access according to line specific nursing protocol in the CT contrast administration guidelines link. CTA Head/Neck WO/W N o IV access, insert saline lock prior to the sedation, infusion, injection for imaging exam. Discontinue saline lock post exam. If Pt. has a central line or IVAD, may access for administration according to line specific nursing protocol. Once exam is complete flush line and de-access according to line specific nursing protocol in the CT contrast administration guidelines link. CTA CHEST (NONGATED) ABD/PEL WO/W IVCON - No IV access, insert saline lock prior to the sedation, infusion, injection for imaging exam. Discontinue saline lock post exam. If Pt. has a central line or IVAD, may access for administration according to line specific nursing protocol. Once exam is complete flush line and de-access according to line specific nursing protocol in the CT contrast administration guidelines link. levETIRAcetam 500 mg oral tablet (17 sources) Start: 10-26-2016 End: 05-07-2017 Levetiracetam 500 MG tablet Discontinued 250 mg PO DAILY October 26, 2016 12:00am May 07, 2017 1:07pm Start: 10-26-2016 End: 05-07-2017 take 250 mg by mouth once daily Levetiracetam Discontinued 250 MG PO DAILY October 25, 2016 11:00pm May 07, 2017 12:07pm omeprazole 20 mg delayed release oral capsule (20 sources) Proton Pump Inhibitor Start: 02-05-2020 End: 08-03-2024 take 1 capsule by mouth once daily Omeprazole 20 MG capsule,delayed release(DR/EC) Discontinued 20 mg PO DAILY February 05, 2020 12:00am August 03, 2024 4:01pm Comment on above: Take 1 capsule by [facility] once daily. rosuvastatin calcium 5 mg oral tablet (17 sources) HMG-CoA Reductase Inhibitor Start: 05-07-2017 End: 06-03-2017 take 1 tablet by mouth once daily Rosuvastatin (Crestor) 5 mg tablet Discontinued 5 mg PO daily May 07, 2017 1:00am June 03, 2017 3:03pm simvastatin 20 mg oral tablet (20 sources) HMG-CoA Reductase Inhibitor Start: 06-03-2017 End: 08-26-2024 take 1 tablet by mouth once daily in the evening Simvastatin 20 mg tablet Discontinued 20 mg PO EVERY EVENING May 22, 2018 4:40pm August 26, 2024 8:42am Comment on above: Take 20 mg by mouth daily at bedtime. 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, unspecified site] Onset: 03-21-2017 06-11-2018 Chronic Comment on above: redo median sternoto my with aortic root replacement with reimplantation of the coronary arteries and aortic valve replacement with a 27 mm bioprosthetic valve and a 30 mm Valsalva graft a sending and total arch replacement with a 28 mm Dacron graft and direct placement of a 28 mm x 10 cm related thoracic stent graft with unstable fenestration and stent grafting of the left subclavian artery with a 13 mm x 2.5 cm covered stent, stent graft in the left common carotid artery with a 10 mm x 2.5 cm covered stent, dissection of the left common carotid artery and dissection of the left subclavian artery. There was also repair of the dissected left subclavian and left common carotid arteries. Cardiac and circulatory congenital anomalies (17 sources) Bicuspid aortic valve; Translations: [Congenital insufficiency of aortic valve] 05-07-2017 Chronic Cardiac dysrhythmias (19 sources) Bradycardia, unspecified; Translations: [Atrial fibrillation] Onset: 03-21-2017 06-07-2020 Chronic Cardiac dysrhythmias (6 sources) Palpitations; Translations: [ECG: sinus bradycardia] Onset: 03-21-2017 03-15-2024 Episodic Conditions associated with dizziness or vertigo (1 source) Dizziness and giddiness; Translations: [Dizziness and giddiness] Onset: 12-18-2017 Episodic Coronary atherosclerosis and other heart disease (2 sources) Ischemic chest pain; Translations: [Chronic ischemic heart disease, unspecified] Chronic Disorders of lipid metabolism (19 sources) Hyperlipidemia, unspecified; Translations: [Hyperlipidemia] Onset: 03-21-2017 02-17-2022 Chronic Disorders of teeth and jaw (1 source) Dental caries on pit and fissure surface penetrating into dentin; Translations: [Dental caries on pit and fissure surface penetrating into dentin] Episodic Essential hypertension (3 sources) Essential (primary) hypertension; Translations: [Essential (primary) hypertension] Onset: 03-21-2017 Chronic Heart valve disorders (20 sources) Nonrheumatic mitral (valve) insufficiency; Translations: [Nonrheumatic pulmonary valve insufficiency] Onset: 03-21-2017 10-13-2018 Chronic Comment on above: AVR with 29mm Medtro richard tissue valve and replacement of ascending aorta with 26 mm tube graft 03/12/2014; redo median sternotomy with aortic root replacement with reimplantation of the coronary arteries and aortic valve replacement with a 27 mm bioprosthetic 06/04/2018 Heart valve disorders (17 sources) Heart murmur; Translations: [Cardiac murmur, unspecified] 06-07-2020 Episodic Nausea and vomiting (20 sources) Nausea and vomiting; Translations: [Nausea with vomiting, unspecified] Onset: 09-08-2024 06-07-2020 Episodic Other circulatory disease (5 sources) Disorder of artery; Translations: [Disorder of arteries and arterioles, unspecified] Chronic Other circulatory disease (1 source) History of replacement of ascending aorta; Translations: [Presence of other vascular implants and grafts] 08-18-2024 Chronic Other circulatory disease (1 source) History of aortic arch replacement; Translations: [Presence of other vascular implants and grafts] 08-18-2024 Chronic Other circulatory disease (1 source) History of great vessel repair; Translations: [Presence of other vascular implants and grafts] 08-18-2024 Chronic Other circulatory disease (3 sources) Presence of other vascular implants and grafts; Translations: [S/P ascending aortic replacement] Onset: 08-18-2024 Chronic Other circulatory disease (1 source) Personal history of other diseases of the circulatory system; Translations: [Personal history of other diseases of the circulatory system] Onset: 12-18-2017 Episodic Other circulatory disease (17 sources) History of dissection of carotid artery; Translations: [Personal history of other diseases of the circulatory system] 10-13-2018 Episodic Other circulatory disease (20 sources) History of cerebrovascular accident; Translations: [Personal history of transient ischemic attack (TIA), and cerebral infarction without residual deficits] Onset: 06-10-2018 06-11-2018 Episodic Other circulatory disease (20 sources) H/O: cardiovascular disease; Translations: [Personal history of other diseases of the circulatory system] 03-06-2022 Episodic Other circulatory disease (1 source) Low blood pressure; Translations: [Hypotension, unspecified] Onset: 07-02-2022 07-02-2022 Episodic Other circulatory disease (4 sources) History of dissection of internal carotid artery; Translations: [Personal history of other diseases of the circulatory system] 03-15-2024 Episodic Other gastrointestinal disorders (17 sources) Diarrhea; Translations: [Diarrhea, unspecified] 06-07-2020 Episodic Other gastrointestinal disorders (17 sources) Constipation; Translations: [Constipation, unspecified] 06-07-2020 Episodic Other gastrointestinal disorders (12 sources) Dysphagia; Translations: [Dysphagia, unspecified] 08-30-2024 Episodic Other gastrointestinal disorders (2 sources) Dysphagia, unspecified; Translations: [Dysphagia, unspecified] Onset: 09-08-2024 Episodic Other lower respiratory disease (4 sources) Pleuritic pain; Translations: [Pleurodynia] 03-15-2024 Episodic Other nervous system disorders (17 sources) Inherited autonomic nervous system disorder; Translations: [Other disorders of autonomic nervous system] 05-11-2021 Chronic Other nervous system disorders (12 sources) Facial paresthesia; Translations: [Paresthesia of skin] 04-01-2022 Episodic Other nutritional; endocrine; and metabolic disorders (20 sources) Obese class I; Translations: [Obesity, unspecified] Onset: 04-23-2021 04-23-2021 Chronic Residual codes; unclassified (2 sources) Daytime hypersomnia; Translations: [Hypersomnia, unspecified] 05-10-2022 Chronic Residual codes; unclassified (2 sources) Hypersomnia, unspecified; Translations: [Hypersomnia, unspecified] 05-10-2022 Chronic Residual codes; unclassified (20 sources) History of repair of thoracic aortic aneurysm; Translations: [Other specified postprocedural states] Onset: 05-15-2018 10-13-2018 Episodic Comment on above: redo median sternoto my with aortic root replacement with reimplantation of the coronary arteries and aortic valve replacement with a 27 mm bioprosthetic valve and a 30 mm Valsalva graft a sending and total arch replacement with a 28 mm Dacron graft and direct placement of a 28 mm x 10 cm related thoracic stent graft with unstable fenestration and stent grafting of the left subclavian artery with a 13 mm x 2.5 cm covered stent, stent graft in the left common carotid artery with a 10 mm x 2.5 cm covered stent, dissection of the left common carotid artery and dissection of the left subclavian artery. There was also repair of the dissected left subclavian and left common carotid arteries. Residual codes; unclassified (1 source) History of repair of aortic root; Translations: [Other specified postprocedural states] 08-18-2024 Episodic Residual codes; unclassified (1 source) Other specified postprocedural states; Translations: [H/O aortic root repair] Onset: 08-18-2024 Episodic Spondylosis; intervertebral disc disorders; other back problems (15 sources) Acute thoracic back pain; Translations: [Pain in thoracic spine] 02-25-2022 Episodic Sprains and strains (1 source) Strain of muscle and tendon of unspecified wall of thorax, initial encounter; Translations: [Thoracic myofascial strain, initial encounter] Onset: 04-20-2023 Episodic Syncope (20 sources) Syncope and collapse; Translations: [Syncope and collapse] Onset: 07-22-2017 12-18-2017 Episodic Unclassified (20 sources) Transition of care; Translations: [Transition of care performed with sharing of clinical summary] Onset: 06-10-2018 04-10-2021 Unclassified (1 source) Abdominal aortic aneurysm (AAA), unspecified part, unspecified whether ruptured; Translations: [Abdominal aortic aneurysm (AAA), unspecified part, unspecified whether ruptured] Onset: 08-18-2024 Past or Other Problems Problem Classification Problem Date Documented Date Episodic/Chronic Abdominal pain (20 sources) Abdominal pain; Translations: [Unspecified abdominal pain] Onset: 04-04-2024 06-07-2020 Episodic Administrative/social admission (20 sources) Discharge status; Translations: [Encounter for administrative examinations, unspecified] Onset: 06-02-2018 06-11-2018 Episodic Allergic reactions (2 sources) Allergy status to other drugs, medicaments and biological substances status; Translations: [Allergy status to oth drug/meds/biol subst status] Onset: 03-21-2017 Episodic Complications of surgical procedures or medical care (20 sources) Postoperative hypertension; Translations: [Postprocedural hypertension] Onset: 06-04-2018 Resolved: 06-08-2018 06-11-2018 Episodic Contraceptive and procreative management (20 sources) Patient encounter status; Translations: [Encounter for sterilization] Onset: 01-16-2009 01-16-2009 Episodic Diabetes mellitus without complication (6 sources) Metabolic stress hyperglycemia; Translations: [Hyperglycemia, unspecified] Onset: 06-04-2018 Resolved: 06-10-2018 06-10-2018 Episodic Epilepsy; convulsions (2 sources) Unspecified convulsions; Translations: [Unspecified convulsions] Onset: 03-21-2017 Episodic Fluid and electrolyte disorders (20 sources) Hypervolemia; Translations: [Fluid overload, unspecified] Onset: 06-07-2018 Resolved: 07-04-2022 06-11-2018 Episodic Nonspecific chest pain (20 sources) Chest pain, unspecified; Translations: [Chest pain] Onset: 03-21-2017 12-23-2021 Episodic Other circulatory disease (2 sources) Personal history of transient ischemic attack (TIA), and cerebral infarction without residual deficits; Translations: [Prsnl hx of TIA (TIA), and cereb infrc w/o resid deficits] Onset: 03-21-2017 Episodic Other lower respiratory disease (6 sources) Hypoxia; Translations: [Hypoxemia] Onset: 06-04-2018 Resolved: 06-10-2018 06-10-2018 Episodic Other nervous system disorders (15 sources) Postoperative pain ; Translations: [Other acute postprocedural pain] Onset: 06-04-2018 06-11-2018 Episodic Other nervous system disorders (16 sources) Acute postoperative pain; Translations: [Other acute postprocedural pain] Onset: 06-04-2018 07-02-2022 Episodic Pleurisy; pneumothorax; pulmonary collapse (15 sources) Atelectasis; Translations: [Atelectasis] Onset: 07-03-2022 07-04-2022 Episodic Residual codes; unclassified (20 sources) History of repair of dissecting thoracic aortic aneurysm; Translations: [Other specified postprocedural states] Onset: 01-01-2018 01-01-2018 Episodic Residual codes; unclassified (3 sources) Transition of care; Translations: [Other specified health status] Onset: 06-10-2018 04-10-2021 Episodic Screening or history of mental health and substance abuse (2 sources) Personal history of nicotine dependence; Translations: [Personal history of nicotine dependence] Onset: 03-21-2017 Episodic Systemic lupus erythematosus and connective tissue disorders (6 sources) Takayasu's disease; 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]] Onset: 06-03-2018 Resolved: 06-04-2018 06-04-2018 Chronic Unclassified (2 sources) Acquired absence of other organs; Translations: [Acquired absence of other organs] Onset: 03-21-2017 Episodic Unclassified (3 sources) History of replacement of ascending aorta 08-19-2024 Unclassified (3 sources) History of repair of aortic root 08-19-2024 Unclassified (3 sources) History of aortic arch replacement 08-19-2024 Unclassified (3 sources) History of great vessel repair 08-19-2024 Unclassified (3 sources) Patient encounter status 08-19-2024 Results Test Name Value Interpretation Reference Range Facility Gastroenterology Visit Repor ton 10-04-2024 Gastroenterology Visit Report [facility] Gastroenterology [address] [place] [address] OFFICE VISIT Date of Service: 10/04/24 MR#: [id number] Acct: [id number] Name: BECK FRAGA Rep #: [id number] : 1975 Provider: HOWARD dinh Age/Sex: 49/M [place] [facility] [place]: S[place] Intake Vital Signs 03/06/24 22:52 08/30/24 06:06 Height 5 ft 6.14 in 5 ft 6.14 in Intake Visit Reasons: 2 M FU Chief Complaint: Dysphagia Allergies oxycodone (From Percocet) Allergy (Verified 10/04/24 13:51) Shortness of breath citalopram (From Celexa) Adverse Reaction (Verified 10/04/24 13:51) erectile dysfunction Medications ???Medication ???Instructions ???Recorded ???Confirmed ???Type aspirin 81 mg chewable tablet 81 mg PO DAILY 12/30/15 10/04/24 H istory clopidogrel 75 mg tablet 75 mg PO DAILY 10/26/16 10/04/24 H istory metoprolol succinate 25 mg 12.5 mg PO BID 02/05/20 10/04/24 H istory tablet,extended release 24 hr atorvastatin 40 mg tablet 40 mg PO QDAY 07/30/24 10/04/24 Hi story famotidine 40 mg tablet 40 mg PO QHS #90 tabs 10/04/24 Rx pantoprazole 40 mg tablet,delayed 40 mg PO QAM #90 tabs 10/04/24 Rx release PFSH Medical History (Updated 10/04/24 @ 18:14 by HOWARD Palafox) Wears glasses Depression Marijuana use Fatty liver Cirrhosis High cholesterol Migraine headache Diverticulosis Heartburn Gastric reflux Former smoker History of echocardiogram Cardiology follow-up encounter Abdominal aortic aneurysm dissection Dysautonomia-like disorder Seizure GERD (gastroesophageal reflux disease) Pneumonia Hearing problem Back problem Constipation Diarrhea Nausea vomiting Abdominal pain Heart murmur Afib History of carotid artery dissection CVA (cerebral vascular accident) Thoracoabdominal aortic dissection Hyperlipidemia Bicuspid aortic valve Surgical History History of bilateral carotid endarterectomy History of thoracic aortic aneurysm repair (05/2018) Hx of myringotomy History of appendectomy History of vasectomy History of aortic valve replacement (06/04/18) Family History Father CVA (cerebral vascular accident) Heart disease Hypertension Myocardial infarction Grandfather CAD (coronary artery disease) Mother CVA (cerebral vascular accident) Hypertension Heart disease IPF (idiopathic pulmonary fibrosis) Other Cervical cancer Colon cancer Diabetes Ovarian cancer Social History household members: none Smoking Status: Former smoker alcohol intake: never substance use type: does not use caffeine: No what type of physical activity do you participate in: walking frequency: daily duration: < 15 minutes/day seatbelt use: always do you feel safe at home: Yes HPI HPI Chief Complaint: Dysphagia Details: BECK FRAGA, is a 49 M who presents to the office today for FU. 08.04.24 OV established with [facility] regarding globus sensation behind his cricoid cartilage and epigastric heartburn. 08.30.24 EGD/SEBASTIAN - No gross lesions in the entire esophagus. - Z-line irregular, 36 cm from the incisors. Biopsied. sophagus, distal, biopsy:Squamous mucosa with reactive changes. Columnar mucosa negative for goblet cell metaplasia. Negative for dysplasia. Negative for eosinophils. - No gross lesions in the entire stomach. - No gross lesions in the entire examined duodenum. - Biopsies were taken with a cold forceps for evaluation of eosinophilic esophagitis. - The SEBASTIAN pH capsule was positioned 36 cm from the incisors, which was 6 cm proximal to the GE junction. Reflux Monitoring Summary: Demeester score 7.1 09.07.24 MBSS Diet: Regular Textures and Thin Liquids Compensatory Strategies: Small Bites, Small Sips, Slow Rate, Alternate bites/solids and sips/liquids and Sitting upright (During and 30- 60min after meals) Recommend Repeat Modified Barium Swallow: No Need for Skilled Speech Therapy Services: No Recommended Referrals: GI Consult (Follow w/ GI to manage esophageal dysphagia. Pt is ok for participation in barium esophagram.) 09.23.24 Barium swallow - Unremarkable dual contrast esophagram. 10.04.24 OV He reports that his meds are working great! He denies globus sensation and all difficulties with swallowing have stopped. He denies any additional concerns after results from all testing was reviewed with him. He reports that since his stroke, he has a difficult time remembering. He admits to frequently forgetting the second dose of pantoprazole. ROS Const Constitutional: No fatigue, fever(s) or weight change ENT ENT: No difficulty swallowing Gastro GI: Positive for abdominal pain, diarrhea an (more content not included)... Normal [facility] Esophagus Dual Contraston Esophagus Dual Contrast [facility] Imaging Services [address] [place], [place] [address] Esophagus Dual Contrast MR#: [id number] Acct: [id number] Name: BECK FRAGA Rep #: [id number] : 1975 M 49 From: Simon murphy MD PCP: Dr. Nguyễn Stark MD Status: REG CLI Study: Esophagus Dual Contrast Date of Exam: 09/23/24 Exam# [id number] Ordering Dr: Nguyễn Stark MD PROCEDURE: ESOPHAGUS DUAL CONTRAST 09/23/2024 REASON FOR EXAM: DYSPHAGIA TECHNIQUE: The patient ingested barium. Multiple images were obtained. Fluoroscopy: 33 seconds. 4.5 mGy. COMPARISON: None FINDINGS: The esophagus is unremarkable. No evidence of obstruction. No evidence of gastroesophageal reflux. The patient ingested a 12 mm tablet the barium without any difficulty. There is evidence of prior aortic stenting. RAD/Esophagus Dual Contrast IMPRESSION: Unremarkable dual contrast esophagram. Reading Location: [place] [address] CC: Dr. Nguyễn Stark MD Conduit Reamer Operator: Signed Normal [facility] Modified Barium Swallow Stud n 09-07-2024 Modified Barium Swallow Study [facility] Speech Pathology [address] [place] [address] Modified Barium Swallow Study MR#: [id number] Acct: [id number] Name: BECK FRAGA Rep #: [id number] : 1975 48 From: Kraina Dodd M.A. [facility] Modified Barium Swallow Patient Information Study Date: 09/07/24 Study Time: 13:00 Direct Billable Minutes: 77 Total Minutes procedure reportin Diagnosis: Dysphagia R13.10 Referring Physician: Nguyễn Stark Chi Reason for Referral: Assess swallow function, assess risk for aspiration, and determine recommendations for least restrictive diet textures and compensatory strategies to improve safety of swallow. Medical History: PMH: Abdominal aortic aneurysm dissection, Dysautonomia-like disorder, Seizure, GERD, PNA,???Hearing problem, Constipation, Diarrhea, Nausea vomiting, Abdominal pain, Heart murmur, Afib, History of carotid artery dissection, CVA, Thoracoabdominal aortic dissection, HLD, Bicuspid aortic valve. Surgical Hx: History of bilateral carotid endarterectomy, History of thoracic aortic aneurysm repair (05/2018), Hx of myringotomy, History of appendectomy, History of aortic valve replacement (06/04/18). The patient has been following w/ GI for management of globus sensation behind his cricoid cartilage and epigastric heartburn. His PCP referred MBSS, esophagram, and ENT consult. Per patient report, ENT work up negative for any abnormal findings. He denies difficulty swallowing food/drink, but reports very bad indigestion after eating/drinking and globus sensation at all times. He has some pain swallowing after EGD, but patient was told this should go away in 2 weeks. Hx of PNA, but this occurred 20 years ago. Hx of CVA 10 years ago, but pt denied speech or swallowing difficulty after his CVA. EGD 08/30/2024: ???Impression: - No gross lesions in the entire esophagus. - Z-line irregular, 36cm from the incisors. Biopsied. - No gross lesions in the entire stomach. - No gross lesions in the entire examined duodenum. - Biopsies were taken with a cold forceps for evaluation of eosinophilic esophagitis. - The SEBASTIAN pH capsule was positioned 36 cm from the incisors, which was 6 cm proximal to the GE junction.??? Current Diet Ordered: Regular textures / Thin liquids Dentition: Natural Teeth and Missing Teeth Mental Status: WNL Respiratory Status: Oxygenating on Room Air Penetration-Aspiration Scale Penetration-Aspiration Scale: OBJECTIVE ASSESSMENT OF SWALLOW FUNCTION (QUANTITATIVE ??? PER TRIAL): PENETRATION / ASPIRATION SCALE (WHITE): 1 = does not enter airway 2 = enters airway/above vocal folds/ejected 3 = enters airway/above vocal folds/not ejected 4 = enters airway/contacts vocal folds/ejected 5 = enters airway/contacts vocal folds/not ejected 6 = enters airway/below vocal folds/ejected 7 = enters airway/below vocal folds/not ejected despite effort 8 = enters airway/below vocal folds/no effort VIDEOFLOROSCOPIC SCALE SCORE (WHITE): Grade I = aspiration of material that has penetrated into the laryngeal vestibule, intact cough reflex Grade II = aspiration < 10 % of the bolus, intact cough reflex Grade III = aspiration of < 10 % of the bolus, reduced cough reflex or aspiration of > 10 % of the bolus, intact cough reflex Grade IV = aspiration of > 10 % of the bolus, reduced cough reflex Penetration-Aspiration Scale Score Thin Liquid via teaspoon: Result: 1= does not enter airway Thin Liquid via teaspoon Trial 2: Result: 1= does not enter airway Thin Liquid via large single sip: cup: Result: 1= does not enter airway Thin Liquid via sequential sips: cup: Result: 2= enter airway/above vocal folds/ejected [place] Thick Liquid via large single sip: cup: Result: 1= does not enter airway Pudding via teaspoon: Result: 1= does not enter airway Comment: Esophageal screen - Retention throughout the middle and lower esophagus. Thin Liquid via single sip: straw: Result: 1= does not enter airway Comment: Esophageal screen - Liquid wash somewhat cleared retention of barium pudding in the esophagus; however, continued retention in the middle esophagus. 1/2 Cookie: Result: 1= does not enter airway Comment: Esophageal screen - Retention in the middle esophagus. Oral Phase Labial Seal: No Labial Escape Tongue Control During Bolus Hold: Cohesive bolus between tongue to palatal seal Bolus Preparation/Mastication: Timely and efficient chewing and mashing Bolus Transport/Lingual Motion: Brisk tongue motion Oral Residue: Trace residue lining oral structures Pharyngeal Phase Initiation of Pharyngeal Swallow: Bolus head in valleculae Soft Palate Elevation: Trace column of contrast/air between soft palate and pharyngeal wall Laryngeal Elevation: Comp. Superior move thyroid cart w/comp. apprx arytenoid cart-epig pet Anterior Hyoid Excursion: Partial anterior movement Epiglottic Movement: Complete inversion (more content not included)... Normal [facility] EGD Reporton 08-30-2024 EGD Report [facility] Medical Records Department [address] [place] [address] EGD Report MR#: [id number] Acct: [id number] Name: BECK FRAGA Rep #: [id number] : 1975 48 From: Jose Luis Friend PCP: Dr. Nguyễn Stark MD Status:[facility] Patient Name: Beck Fraga Procedure Date: 08/30/2024 6:22 AM Date of : 1975 Age: 48 Procedure: Upper GI endoscopy Indications: Epigastric abdominal pain, Functional Dyspepsia, Indigestion, Suspected esophageal reflux Providers: Jose Luis Dao DO Referring MD: Nguyễn Stark MD Medicines: Monitored Anesthesia Care Patient Profile: This is a 48 year old male. Refer to note in patient chart for documentation of history and physical. Patient has symptoms of chronic cough, chronic dysphagia, dysphagia with both liquids and solids, chronic nausea and chronic vomiting. Complications: No immediate complications. Procedure: Pre-Anesthesia Assessment: - Prior to the procedure, a History and Physical was performed, and patient medications and allergies were reviewed. The patient is competent. The risks and benefits of the procedure and the sedation options and risks were discussed with the patient. All questions were answered and informed consent was obtained. Patient identification and proposed procedure were verified by the physician in the pre-procedure area. Mental Status Examination: alert and oriented. Airway Examination: normal oropharyngeal airway and neck mobility. Respiratory Examination: clear to auscultation. CV Examination: normal. Prophylactic Antibiotics: The patient does not require prophylactic antibiotics. Prior Anticoagulants: The patient has taken no anticoagulant or antiplatelet agents except for NSAID medication. ASA Grade Assessment: II - A patient with mild systemic disease. After reviewing the risks and benefits, the patient was deemed in satisfactory condition to undergo the procedure. The anesthesia plan was to use monitored anesthesia care (MAC). Immediately prior to administration of medications, the patient was re-assessed for adequacy to receive sedatives. The heart rate, respiratory rate, oxygen saturations, blood pressure, adequacy of pulmonary ventilation, and response to care were monitored throughout the procedure. The physical status of the patient was re-assessed after the procedure. After obtaining informed consent, the endoscope was passed under direct vision. Throughout the procedure, the patient's blood pressure, pulse, and oxygen saturations were monitored continuously. The Endoscope was introduced through the mouth, and advanced to the second part of duodenum. The upper GI endoscopy was accomplished without difficulty. The patient tolerated the procedure well. Scope In: 7:19:17 AM Scope Out: 7:28:18 AM Total Procedure Duration Time 0 hours 9 minutes 1 second Findings: No gross lesions were noted in the entire esophagus. Biopsies were obtained from the proximal and distal esophagus with cold forceps for histology of suspected eosinophilic esophagitis. The Z-line was irregular and was found 36 cm from the incisors. Biopsies were taken with a cold forceps for histology. Verification of patient identification for the specimen was done. Estimated blood loss was minimal. The [employer] capsule with delivery system was introduced through the mouth and advanced into the esophagus, such that the SEBASTIAN pH capsule was positioned 36 cm from the incisors, which was 6 cm proximal to the GE junction. Suction was applied to the well of the SEBASTIAN pH capsule to suck in the adjacent mucosa of the esophagus using the external vacuum pump set at a minimum vacuum pressure of 550 mmHg for 30 seconds. The SEBASTIAN pH capsule was then deployed by depressing the plunger on top of the handle to advance the locking pin into the mucosa, thereby attaching the capsule to the esophagus. The plunger was then rotated a quarter turn clockwise to release the capsule from the delivery system. The delivery system was then withdrawn. Endoscopy was utilized for probe placement and diagnostic evaluation. No gross lesions were noted in the entire examined stomach. The cardia and gastric fundus were normal on retroflexion. No gross lesions were noted in the entire examined duodenum. Impression: - No gross lesions in the entire esophagus. - Z-line irregular, 36 cm from the incisors. Biopsied. - No gross lesions in the entire stomach. - No gross lesions in the entire examined duodenum. - Biopsies were taken with a cold forceps for evaluation of eosinophilic esophagitis. - The SEBASTIAN pH capsule was positioned 36 cm from the incisors, which was 6 cm proximal to the GE junction. Recommendation: - Discharge patient to home. - Resume previous diet. - Continue present medications. - Await pathology result (more content not included)... Normal [facility] MR/POSTOP.[facility] 08-30-2024 MR/POSTOP.[facility] Medical Records Department [address] [place] [address] Anesthesia Postop Eval I 08/30/24 0742 MR#: [id number] Acct: [id number] Name: BECK FRAGA Rep #: [id number] : 1975 48 From: Kaiden Hall CRNA PCP: Dr. Nguyễn Stark MD Status:REG SDC Y Race: C Location: [place] [address] Anesthesia: Postop Eval I Current Vital Signs Temperature: 97.1 F Pulse Rate: 58 Blood Pressure: 120/104 Respiratory Rate: 16 Pulse Ox: 93 Oxygen Delivery Method: Nasal Cannula Oxygen Flow Rate (L/min): 3 Assessment Airway patent: Yes Spontaneous unlabored respirations: Yes Mental status: Awake nausea: No Vomiting: No Anesthesia Complication: No Fluid Hydration Crystalloid volume administer (ml): 300 Total IV fluid infused: 300 Progress Note Anesthesia document: Postop Eval 1 completed: Yes 08/30/24742 Date Kaiden Hall DIRECTOR OF FRONT OFFICE Cosigner Signature: Date CC: Signed Normal [facility] MR/[id number] 08-30-2024 MR/POSTOPAN2 [facility] Medical Records Department [address] [place] [address] Anesthesia Postop Eval II 08/30/24 0804 MR#: [id number] Acct: [id number] Name: BECK FRAGA Rep #: [id number] : 1975 48 From: Brando Hilario MD PCP: Dr. Nguyễn Stark MD Status:REG [facility] Y Race: C Location: [place] [address] Anesthesia Postop Eval I Sum Postop Eval Completion status Anesthesia document: Postop Eval 1 completed: Yes Anesthesia Postop Eval I Summary Anesthesia Postop Eval I Summary: Anesthesia Postop Eval I: Assessment Summary Airway patent Yes 08/30/24 07:43 DIRECTOR OF FRONT OFFICE.SOBR Spontaneous unlabored Yes 08/30/24 07:43 DIRECTOR OF FRONT OFFICE.SOBR respirations Mental status Awake 08/30/24 07:43 DIRECTOR OF FRONT OFFICE.SOBR nausea No 08/30/24 07:43 DIRECTOR OF FRONT OFFICE.SOBR Vomiting No 08/30/24 07:43 DIRECTOR OF FRONT OFFICE.SOBR Anesthesia Postop Eval I: Fluid Summary Crystalloid volume administer 300 08/30/24 07:43 DIRECTOR OF FRONT OFFICE.SOBR (ml) Colloids volume administered ( ml) Blood Product volume administered (ml) Total IV fluid infused 300 08/30/24 07:43 DIRECTOR OF FRONT OFFICE.SOBR Anesthesia Postop Eval I: Summary Notes Anesthesia Complication No 08/30/24 07:43 DIRECTOR OF FRONT OFFICE.SOBR Anesthesia Complication Comment: Post-operative progress note Anesthesia: Postop Eval II Evaluation Mental status: Awake Pain Level: 0 nausea: No Vomiting: No 08/30/24 0804 Date Brando Damon Signature: Date CC: Signed Normal [facility] Surgery Specimen Level [place] 08-30-2024 Surgery Specimen Level IV Patient Age/Sex Location Account Attending Physician BECK FRAGA/M EN [id number] Jose Luis Dao DO Specimen: [id number] Received: 08/30/24 Status: LC Cochran Num: [id number] Spec Type: EGD BIOPSY Subm Dr: DO FRANKIE Childs OPERATION: EGD - PH probe PRE-OP DIAGNOSIS: Dysphagia TISSUE SUBMITTED: A- Distal esophagus biopsy, B- Random esophagus biopsy MICROSCOPIC DIAGNOSIS A. Esophagus, distal, biopsy: Squamous mucosa with reactive changes. Columnar mucosa negative for goblet cell metaplasia. Negative for dysplasia. B. Esophagus, random, biopsy: Squamous mucosa negative for eosinophils. MICROSCOPIC DESCRIPTION Slides are reviewed. GROSS DESCRIPTION A. Received in formalin in a container labeled with the patient's name, date of , and distal esophagus biopsy are 2 yin-pink fragments of mucosal tissue each measuring 0.5 x 0.3 x 0.2 cm. Submitted in toto in A1. B. Received in formalin in a container labeled with the patient's name, date of , and random esophagus biopsy are 2 yin-pink, wispy fragments of mucosal tissue measuring 0.5 x 0.4 x 0.1 cm and 0.7 x 0.4 x 0.1 cm. Submitted in toto in B1. [facility] 08-30-2024 CPT:37630n1 Patient Age/Sex Location Account Attending Physician BECK FRAGA 48/M EN [id number] Jose Luis Dao DO Signed (signature on file) Dr. Shaniqua Weston MD 09/07/24 1706 Normal [facility] Comment on above: Performed By: #### P SUIV ####[facility] [id number] [place], [address] MR/PATTejal 08-26-2024 MR/PAT.[facility] Medical Records Department [address] [place] [address] PAT - Anesthesia 08/26/24 1114 MR#: [id number] Acct: [id number] Name: BECK FRAGA Rep #: [id number] : 1975 48 From: Rodney Jackson MD PCP: Dr. 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 When Was Last Pacemaker Check QUESTION #4 FULL TEXT: You/Your Family Experience fever (hyperthermia) with Anesthesia Last Oral Intake Last Oral intake: Last Oral Intake NPO since Meds taken in AM with sips of water? 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 - marketing operations specialist: PONV - marketing operations specialist Female No 08/26/24 08:47 HX of Motion Sickness No 08/26/24 08:47 HX of N/V After Surgery No 08/26/24 08:47 Non-Smoker Yes 08/26/24 08:47 Duration of Surgery greater No 08/26/24 08:47 than 60 minutes Number of Risk Factors 1 08/26/24 08:47 PONV Score Low Risk 08/26/24 08:47 Height Weight Height Weight: Anesthesia: Height Weight Height 5 ft 6.14 in 03/06/24 22:52 Respiratory Assessment Respiratory Assessment - marketing operations specialist: Respiratory Tract Infection Hx - marketing operations specialist Hx Respiratory Tract Infection No 08/26/24 08:47 STOP Sleep Apnea STOP Sleep Apnea - marketing operations specialist: STOP Sleep Apnea - marketing operations specialist Hx Hypertension Yes 08/26/24 08:47 Hx Sleep Apnea No 08/26/24 08:47 CPAP BIPAP Do you snore loudly (louder No 08/26/24 08:47 than talking or can be heard Do you often feel tired/ No 08/26/24 08:47 fatigued/ sleepy during daytime? Has anyone observed you stop No 08/26/24 08:47 breathing during sleep? STOP Results Negative 08/26/24 08:47 QUESTION #5 FULL TEXT : Do you snore loudly (louder than talking or can be heard through closed doors)? 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 Specify any problems Hx of Preganancy in last 3 N/A 08/26/24 08:47 Months Nurse Filling Out Transfusion [facility] 08/26/24 08:47 Questions: Date: 08/26/24 08/26/24 08:47 Time: 08:59 08/26/24 08:47 Patient unable to answer at this time (ie. confused, unrespo /Reproduction History /Reproductive History - marketing operations specialist: /Reproductive Hx- marketing operations specialist Hx Now Gestational Age (in weeks): EDC: Hx Hx Para Hx Section SAB PFSH Medical History Wears glasses Depression Marijuana use Fatty liver Cirrhosis High cholesterol Migraine headache Diverticulosis Heartburn Gastric reflux Former smoker History of echocardiogram Cardiology follow-up encounter Abdominal aortic aneurysm dissection Dysautonomia-like disorder Seizure GERD (gastroesophageal reflux disease) Pneumonia Hearing problem Back problem Constipation Diarrhea Nausea vomiting Abdominal pain Heart murmur Afib History of carotid artery dissection CVA (cerebral vascular accident) Thoracoabdominal aortic dissection Hyperlipidemia Bicuspid aortic valve Home Medications ???Medication ???Instructions ???Recorded ???Last Taken ???Type aspirin 81 mg chewable tablet 81 mg PO DAILY 12/30/15 Unknown Hi story clopidogrel 75 mg tablet 75 mg PO DAILY 10/26/16 Unknown Hi story metoprolol succinate (more content not included)... [facility] (TOMN ) BECK FRAGA ([id number]) 1975 M Date Time Provider Department 08/18/24 1:30 PM KEELY EUBANKS [facility] During your visit today, we recorded the following information about you: Temperature Pulse Respiration Blood pressure 97.3 degrees 51/minute 14/minute 146/51 Weight Height 82.1 kg 1.676 m Keely Eubanks APRN.[facility] 08/19/2024 4:24 PM Signed FOLLOW-UP Aortic Aneurysm, Aortic Dissection, and Aortic Repair Patient Type: Established REFERRED BY: Harjit Thorpe M.D. PCP: Nguyễn Stark MD [address] [address] Other Physician: Harjit Thorpe [address] [facility] [address] Patient Mr. Fraga returns, now 12 months following the last assessment of his thoracoabdominal Aortic Dissection and Aortic Repair. The patient is asymptomatic. Pertinent Surgical History: 07/01/2022 -- Dr Thorpe TEVAR from zone 3 to 5 (32mm x 209mm RELAY PRO) + Cook Zenith NIRAV from zone 5 to 9 (36mm x 180mm) + LSCA stent (VBX 11x39) + LCCA stents (ABSOLUTE 4x40 + VBX 8x59) + Balloon fracture fenestration + False lumen embolization and endoleak repair with 2 aortic Amplatzer plugs at zone 1 ( 12 and 20 mm). 06/04/2018 -- Dr Thorpe Redo median sternotomy, right axillary artery cannulation with a 10 mm Dacron graft, aortic root replacement with reimplantation of the coronary arteries and aortic valve with a 27-mm Inspiris bioprosthetic valve and 30 mm Valsalva graft, ascending and total arch replacement with a 28 mm Dacron graft and direct placement of a 28 mm x 10 cm Relay thoracic stent graft with on-table fenestration and stent grafting of the left subclavian artery with a 13 mm x 2.5 cm Viabahn covered stent, stent graft in the left common carotid artery with a 10 mm x 2.5 cm covered stent, dissection of the left common carotid artery and dissection of the left subclavian artery, repair of dissected left subclavian and left common carotid arteries, hypothermic circulatory arrest with selective antegrade brain perfusion. 2013 -- OSH Aortic valve replacement (bioprosthetic) AND ascending aortic dissection repair (supracoronary graft). Done at [facility] in [place]. Genetic Consult, 09/20/22 - Beck Fraga declined to proceed with a new panel now; would like to reconsider again in the future. The CT scan was reviewed and reveals a maximum aortic diameter of 36 mm in the area just distal to TEVAR with false lumen perfusion. Dissection terminates in right common iliac. Overall, stable findings when compares to CTA in August 2023. The Echocardiogram from 09/20/22 reveals normal ventricular function and well functioning valves, including AVR (30/12). Last ECHO Result Conclusion ECHO Collected: 09/20/2022 10:36 AM (Final result) Impression: CONCLUSIONS: - Exam indication: AVR - The left ventricle is normal in size. Left ventricular systolic function is normal. EF = 66 ? 5% (2D 4-ch.) - The right ventricle is normal in size. Right ventricular systolic function is normal. - Inspiris prosthetic aortic valve (size #27). There is trace (trace - 1+) aortic valve regurgitation. The peak gradient is 18 mmHg, the mean gradient is 9 mmHg and the dimensionless valve index is 0.43. Prior peak/mean gradients 19/9mmHg. - Mild MR and HI. - Exam was compared with the prior echocardiographic exam performed on 05/13/2022, similar findings. * * * Final * * * Last CT Result Conclusion CTA CHEST (NONGATED) WO/W IVCON Exam End: 08/18/2024 12:56 PM (Final result) Impression: IMPRESSION: Stable exam since 08/20/2023. 1. Type A aortic dissection status post extensive repair with aortic valve replacement, ascending aortic graft, frozen elephant trunk and endovascular stenting of the thoracoabdominal aorta to the aortic bifurcation. No evidence of endoleak. -Patent stents in the left carotid and left without arteries. Conduit Reamer Operator: CHARLIE Transcribe Date/Time: Aug 18 2024 1:28P Dictated by : NAYAN DUGAN MD This examination was interpreted and the report reviewed and electronically signed by: NAYAN DUGAN MD on Aug 18 2024 2:02PM EST Impression: The patient is doing well, after the last visit. (I71.03) Dissection of thoracoabdominal aorta (HCC) (primary encounter diagnosis) Comment: (Z95.2) S/P AVR (aortic valve replacement) (Z95.828) S/P ascending aortic replacement (Z98.890) H/O aortic root repair (Z95.828) H/O aortic arch replacement (Z95.828) S/P insertion of endovascular thoracic aortic stent graft Plan: Follow Up CTA and echo Plan: He will return to see me in 12 months, coordinate with cardiology if not done in the interim. The following studies will be necessary: - CT C/A/P with and without contrast, post stent - Echocardiogram Keely Narayanan (more content not included)... Normal [facility] CTA ABD/PELV WO/W IVCONon CTA ABD/PELV WO/W IVCON * * *Final Repor t* * * DATE OF EXAM: Aug 18 2024 12:56PM JQC 0467 - CTA ABD/PELV WO/W IVCON / PROCEDURE REASON: Abdominal aortic aneurysm (AAA), unspecified part, unspecified whether ruptured * * * * Physician Interpretation * * * * CTA Aorta chest , abdomen, and pelvis Direct Image Comparison: HISTORY: 48 years old Male with h/o repaired type-A dissection --?2014, S/P?aortic valve?replacement?(bioprost hetic) and?ascending aortic dissection repair (supracoronary graft). ? --?progressively enlarging aortic root aneurysm followed by:? - 06/04/2018: Redo median sternotomy, aortic root replacement with reimplantation of the coronary ?arteries and aortic valve with a 27-mm Inspiris bioprosthetic valve and 30 mm ?Valsalva graft, ascending and total arch replacement with a 28 mm Dacron graft and ?direct placement of a 28 mm x 10 cm Relay thoracic stent graft, on-table ?fenestration and stent grafting of the left subclavian artery with a 13 mm x 2.5 cm ?Viabahn covered stent, stent graft in the left common carotid artery with a 10 mm x ?2.5 cm covered stent, dissection of the left common carotid artery and dissection of ?the left subclavian artery, repair of dissected left subclavian and left common ?carotid arteries. - 07/01/2022: TEVAR from zone 3 to 5 (32mm x 209mm RELAY PRO) + Cook Zenith NIRAV from zone 5 to 9 (36mm x 180mm) + LSCA stent (VBX 11x39) + LCCA stents (ABSOLUTE 4x40 + VBX ?8x59) + False lumen embolization and endoleak repair with 2 aortic Amplatzer plugs ?at zone 3 ( 12 and 20 mm). -Evaluation for interval change. There is request to define thoracic and aortic anatomy TECHNIQUE: SCANNER: Multi-detector scanner PROTOCOL: 3-phase, non-gated spiral imaging with thin slice reconstruction was performed prior and following (arterial and venous phase) intravenous administration of contrast material Scan Range: thoracic inlet through the ischial tuberosities CT Dose-Length Product (DLP): 479 mGy*cm CT Dose Reduction Employed: Automated exposure control(AEC) and iterative recon CONTRAST: IV administration of 80 ml Omnipaque 350 Scan acquisition: uncomplicated Macro Version: [id number]_3 For optimization of anatomic evaluation, advanced 3-D off-line postprocessing was performed on a dedicated workstation by the interpreting physician. STUDY LIMITATIONS: None. RESULT: LINES, TUBES AND DEVICES: None CHEST: Chest wall anatomy: The patient is status post median sternotomy. Lungs: Few tiny pulmonary nodules are nonspecific. For example, there is a 2 mm left upper lobe nodule at image 87. No consolidation. No pleural effusion. No pleural thickening. Mediastinum: The imaged thyroid gland is normal. Few subcentimeter to borderline enlarged mediastinal and hilar lymph nodes are likely reactive. Esophagus is nondistended. Pericardium: Unremarkable. Central pulmonary artery: Normal dimensions, assessment is limited due to lack of contrast enhancement CARDIAC CHAMBERS: assessment is limited in the systolic phase reconstructions Left ventricle: normal size. Right ventricle: normal size Left atrium: normal size. KALIE: normal Right atrium: normal size Central and pulmonary venous return: normal. Coronary Sinus: normal size MITRAL and TRICUSPID VALVE: Assessment is limited in the current study Mitral valve leaflets are mildly thickened, No annular calcification PULMONIC VALVE: Assessment is limited in the current study. No leaflet calcification CORONARY ANATOMY: Normal origin of the coronary arteries No definitive evidence of calcified atherosclerotic changes of the coronary arteries. However, the current study is not optimized for coronary assessment. AORTIC VALVE: AVR with bioprosthetic valve. No leaflet calcification. AORTA: Size: Normal size thoracic and abdominal aorta. 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 Intervention: Extensive hybrid (surgical and endovascular) repair. Status post plug devices in the aortic arch. Complications: No residual endoleak. Extent: right common iliac artery STJ: surgical anastomosis. Wall Changes: Arch Branch Vessels: - Innominate Artery: no dissection. - Right Subclavian Artery: no dissection. - proximal Right Carotid Artery: no dissection. - proximal Left Carotid Artery: Patent stent - Left Subclavian Artery: dissection extending into the proximal segment. Patent stent - proximal Vertebral Arteries: dissection involving the ostium of the left. Visceral Branch Vessels: - Celiac Artery: no dissection. - SMA: no dissection. - Right Renal Artery: no dissection. Originates from false lumen. - Left Renal Artery: no dissection. - ANNE: no dissection. Iliac Arteries: dissection involving the ostium of the right KAILEE. AORTIC DIMENSIONS: AORTIC ROOT: 3.7 cm measured cfppa-[id number]-lhwik mid DESCENDING THORACIC AORTA: 4.2 cm stable JUXTARENAL ABDOMINAL AORTA (level of SMA): 2.6 cm mid I (more content not included)... Normal [facility] CTA Abdominal vessels and Pe lvis vessels WO and W contrast Gisele 08-18-2024 * * *Final Report* * * DATE OF EXAM: Aug 18 2024 12:56PM JQC 0467 - CTA ABD/PELV WO/W IVCON / PROCEDURE REASON: Abdominal aortic aneurysm (AAA), unspecified part, unspecified whether ruptured * * * * Physician Interpretation * * * * CTA Aorta chest , abdomen, and pelvis Direct Image Comparison: HISTORY: 48 years old Male with h/o repaired type-A dissection --?2014, S/P?aortic valve?replacement?(bioprost hetic) &?ascending aortic dissection repair (supracoronary graft). ? --?progressively enlarging aortic root aneurysm followed by:? - 06/04/2018: Redo median sternotomy, aortic root replacement with reimplantation of the coronary ?arteries and aortic valve with a 27-mm Inspiris bioprosthetic valve and 30 mm ?Valsalva graft, ascending and total arch replacement with a 28 mm Dacron graft and ?direct placement of a 28 mm x 10 cm Relay thoracic stent graft, on-table ?fenestration and stent grafting of the left subclavian artery with a 13 mm x 2.5 cm ?Viabahn covered stent, stent graft in the left common carotid artery with a 10 mm x ?2.5 cm covered stent, dissection of the left common carotid artery and dissection of ?the left subclavian artery, repair of dissected left subclavian and left common ?carotid arteries. - 07/01/2022: TEVAR from zone 3 to 5 (32mm x 209mm RELAY PRO) + Cook Zenith NIRAV from zone 5 to 9 (36mm x 180mm) + LSCA stent (VBX 11x39) + LCCA stents (ABSOLUTE 4x40 + VBX ?8x59) + False lumen embolization and endoleak repair with 2 aortic Amplatzer plugs ?at zone 3 ( 12 and 20 mm). -Evaluation for interval change. There is request to define thoracic and aortic anatomy TECHNIQUE: SCANNER: Multi-detector scanner PROTOCOL: 3-phase, non-gated spiral imaging with thin slice reconstruction was performed prior and following (arterial and venous phase) intravenous administration of contrast material Scan Range: thoracic inlet through the ischial tuberosities CT Dose-Length Product (DLP): 479 mGy*cm CT Dose Reduction Employed: Automated exposure control(AEC) and iterative recon CONTRAST: IV administration of 80 ml Omnipaque 350 Scan acquisition: uncomplicated Macro Version: [id number] For optimization of anatomic evaluation, advanced 3-D off-line postprocessing was performed on a dedicated workstation by the interpreting physician. STUDY LIMITATIONS: None. RESULT: LINES, TUBES AND DEVICES: None CHEST: Chest wall anatomy: The patient is status post median sternotomy. Lungs: Few tiny pulmonary nodules are nonspecific. For example, there is a 2 mm left upper lobe nodule at image 87. No consolidation. No pleural effusion. No pleural thickening. Mediastinum: The imaged thyroid gland is normal. Few subcentimeter to borderline enlarged mediastinal and hilar lymph nodes are likely reactive. Esophagus is nondistended. Pericardium: Unremarkable. Central pulmonary artery: Normal dimensions, assessment is limited due to lack of contrast enhancement CARDIAC CHAMBERS: assessment is limited in the systolic phase reconstructions Left ventricle: normal size. Right ventricle: normal size Left atrium: normal size. KALIE: normal Right atrium: normal size Central and pulmonary venous return: normal. Coronary Sinus: normal size MITRAL and TRICUSPID VALVE: Assessment is limited in the current study Mitral valve leaflets are mildly thickened, No annular calcification PULMONIC VALVE: Assessment is limited in the current study. No leaflet calcification CORONARY ANATOMY: Normal origin of the coronary arteries No definitive evidence of calcified atherosclerotic changes of the coronary arteries. However, the current study is not optimized for coronary assessment. AORTIC VALVE: AVR with bioprosthetic valve. No leaflet calcification. AORTA: Size: Normal size thoracic and abdominal aorta. 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 Intervention: Extensive hybrid (surgical and endovascular) repair. Status post plug devices in the aortic arch. Complications: No residual endoleak. Extent: right common iliac artery STJ: surgical anastomosis. Wall Changes: Arch Branch Vessels: - Innominate Artery: no dissection. - Right Subclavian Artery: no dissection. - proximal Right Carotid Artery: no dissection. - proximal Left Carotid Artery: Patent stent - Left Subclavian Artery: dissection extending into the proximal segment. Patent stent - proximal Vertebral Arteries: dissection involving the ostium of the left. Visceral Branch Vessels: - Celiac Artery: no dissection. - SMA: no dissection. - Right Renal Artery: no dissection. Originates from false lumen. - Left Renal Artery: no dissection. - ANNE: no dissection. Iliac Arteries: dissection involving the ostium of the right KAILEE. AORTIC DIMENSIONS: AORTIC ROOT: 3.7 cm measured [id number]-[id number] mid DESCENDING THORACIC AORTA: 4.2 cm stable JUXTARENAL ABDOM (more content not included)... DIVISION OF RADIOLOGY Provider, [facility] - 08/18/2024 * * *Final Report* * * DATE OF EXAM: Aug 18 2024 12:56PM JQC 0467 - CTA ABD/PELV WO/W IVCON / PROCEDURE REASON: Abdominal aortic aneurysm (AAA), unspecified part, unspecified whether ruptured * * * * Physician Interpretation * * * * CTA Aorta chest , abdomen, and pelvis Direct Image Comparison: HISTORY: 48 years old Male with h/o repaired type-A dissection --?2013, S/P?aortic valve?replacement?(bioprost hetic) &?ascending aortic dissection repair (supracoronary graft). ? --?progressively enlarging aortic root aneurysm followed by:? - 06/04/2018: Redo median sternotomy, aortic root replacement with reimplantation of the coronary ?arteries and aortic valve with a 27-mm Inspiris bioprosthetic valve and 30 mm ?Valsalva graft, ascending and total arch replacement with a 28 mm Dacron graft and ?direct placement of a 28 mm x 10 cm Relay thoracic stent graft, on-table ?fenestration and stent grafting of the left subclavian artery with a 13 mm x 2.5 cm ?Viabahn covered stent, stent graft in the left common carotid artery with a 10 mm x ?2.5 cm covered stent, dissection of the left common carotid artery and dissection of ?the left subclavian artery, repair of dissected left subclavian and left common ?carotid arteries. - 07/01/2022: TEVAR from zone 3 to 5 (32mm x 209mm RELAY PRO) + Cook Zenith NIRAV from zone 5 to 9 (36mm x 180mm) + LSCA stent (VBX 11x39) + LCCA stents (ABSOLUTE 4x40 + VBX ?8x59) + False lumen embolization and endoleak repair with 2 aortic Amplatzer plugs ?at zone 3 ( 12 and 20 mm). -Evaluation for interval change. There is request to define thoracic and aortic anatomy TECHNIQUE: SCANNER: Multi-detector scanner PROTOCOL: 3-phase, non-gated spiral imaging with thin slice reconstruction was performed prior and following (arterial and venous phase) intravenous administration of contrast material Scan Range: thoracic inlet through the ischial tuberosities CT Dose-Length Product (DLP): 479 mGy*cm CT Dose Reduction Employed: Automated exposure control(AEC) and iterative recon CONTRAST: IV administration of 80 ml Omnipaque 350 Scan acquisition: uncomplicated Macro Version: [id number]_[id number] For optimization of anatomic evaluation, advanced 3-D off-line postprocessing was performed on a dedicated workstation by the interpreting physician. STUDY LIMITATIONS: None. RESULT: LINES, TUBES AND DEVICES: None CHEST: Chest wall anatomy: The patient is status post median sternotomy. Lungs: Few tiny pulmonary nodules are nonspecific. For example, there is a 2 mm left upper lobe nodule at image 87. No consolidation. No pleural effusion. No pleural thickening. Mediastinum: The imaged thyroid gland is normal. Few subcentimeter to borderline enlarged mediastinal and hilar lymph nodes are likely reactive. Esophagus is nondistended. Pericardium: Unremarkable. Central pulmonary artery: Normal dimensions, assessment is limited due to lack of contrast enhancement CARDIAC CHAMBERS: assessment is limited in the systolic phase reconstructions Left ventricle: normal size. Right ventricle: normal size Left atrium: normal size. KALIE: normal Right atrium: normal size Central and pulmonary venous return: normal. Coronary Sinus: normal size MITRAL and TRICUSPID VALVE: Assessment is limited in the current study Mitral valve leaflets are mildly thickened, No annular calcification PULMONIC VALVE: Assessment is limited in the current study. No leaflet calcification CORONARY ANATOMY: Normal origin of the coronary arteries No definitive evidence of calcified atherosclerotic changes of the coronary arteries. However, the current study is not optimized for coronary assessment. AORTIC VALVE: AVR with bioprosthetic valve. No leaflet calcification. AORTA: Size: Normal size thoracic and abdominal aorta. 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 Intervention: Extensive hybrid (surgical and endovascular) repair. Status post plug devices in the aortic arch. Complications: No residual endoleak. Extent: right common iliac artery STJ: surgical anastomosis. Wall Changes: Arch Branch Vessels: - Innominate Artery: no dissection. - Right Subclavian Artery: no dissection. - proximal Right Carotid Artery: no dissection. - proximal Left Carotid Artery: Patent stent - Left Subclavian Artery: dissection extending into the proximal segment. Patent stent - proximal Vertebral Arteries: dissection involving the ostium of the left. Visceral Branch Vessels: - Celiac Artery: no dissection. - SMA: no dissection. - Right Renal Artery: no dissection. Originates from false lumen. - Left Renal Artery: no dissection. - ANNE: no dissection. Iliac Arteries: dissection involving the ostium of the right KAILEE. AORTIC DIMENSIONS: AORTIC ROOT: 3.7 cm measured si (more content not included)... 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 ? --?progressively enlarging aortic root aneurysm followed by:? - 06/04/2018: Redo median sternotomy, aortic root replacement with reimplantation of the coronary ?arteries and aortic valve with a 27-mm Inspiris bioprosthetic valve and 30 mm ?Valsalva graft, ascending and total arch replacement with a 28 mm Dacron graft and ?direct placement of a 28 mm x 10 cm Relay thoracic stent graft, on-table ?fenestration and stent grafting of the left subclavian artery with a 13 mm x 2.5 cm ?Viabahn covered stent, stent graft in the left common carotid artery with a 10 mm x ?2.5 cm covered stent, dissection of the left common carotid artery and dissection of ?the left subclavian artery, repair of dissected left subclavian and left common ?carotid arteries. - 07/01/2022: TEVAR from zone 3 to 5 (32mm x 209mm RELAY PRO) + Cook Zenith NIRAV from zone 5 to 9 (36mm x 180mm) + LSCA stent (VBX 11x39) + LCCA stents (ABSOLUTE 4x40 + VBX ?8x59) + False lumen embolization and endoleak repair with 2 aortic Amplatzer plugs ?at zone 3 ( 12 and 20 mm). -Evaluation for interval change. There is request to define thoracic and aortic anatomy TECHNIQUE: SCANNER: Multi-detector scanner PROTOCOL: 3-phase, non-gated spiral imaging with thin slice reconstruction was performed prior and following (arterial and venous phase) intravenous administration of contrast material Scan Range: thoracic inlet through the ischial tuberosities CT Dose-Length Product (DLP): 479 mGy*cm CT Dose Reduction Employed: Automated exposure control(AEC) and iterative recon CONTRAST: IV administration of 80 ml Omnipaque 350 Scan acquisition: uncomplicated Macro Version: [id number] For optimization of anatomic evaluation, advanced 3-D off-line postprocessing was performed on a dedicated workstation by the interpreting physician. STUDY LIMITATIONS: None. RESULT: LINES, TUBES AND DEVICES: None CHEST: Chest wall anatomy: The patient is status post median sternotomy. Lungs: Few tiny pulmonary nodules are nonspecific. For example, there is a 2 mm left upper lobe nodule at image 87. No consolidation. No pleural effusion. No pleural thickening. Mediastinum: The imaged thyroid gland is normal. Few subcentimeter to borderline enlarged mediastinal and hilar lymph nodes are likely reactive. Esophagus is nondistended. Pericardium: Unremarkable. Central pulmonary artery: Normal dimensions, assessment is limited due to lack of contrast enhancement CARDIAC CHAMBERS: assessment is limited in the systolic phase reconstructions Left ventricle: normal size. Right ventricle: normal size Left atrium: normal size. KALIE: normal Right atrium: normal size Central and pulmonary venous return: normal. Coronary Sinus: normal size MITRAL and TRICUSPID VALVE: Assessment is limited in the current study Mitral valve leaflets are mildly thickened, No annular calcification PULMONIC VALVE: Assessment is limited in the current study. No leaflet calcification CORONARY ANATOMY: Normal origin of the coronary arteries No definitive evidence of calcified atherosclerotic changes of the coronary arteries. However, the current study is not optimized for coronary assessment. AORTIC VALVE: AVR with bioprosthetic valve. No leaflet calcification. AORTA: Size: Normal size thoracic and abdominal aorta. 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 Intervention: Extensive hybrid (surgical and endovascular) repair. Status post plug devices in the aortic arch. Complications: No residual endoleak. Extent: right common iliac artery STJ: surgical anastomosis. Wall Changes: Arch Branch Vessels: - Innominate Artery: no dissection. - Right Subclavian Artery: no dissection. - proximal Right Carotid Artery: no dissection. - proximal Left Carotid Artery: Patent stent - Left Subclavian Artery: dissection extending into the proximal segment. Patent stent - proximal Vertebral Arteries: dissection involving the ostium of the left. Visceral Branch Vessels: - Celiac Artery: no dissection. - SMA: no dissection. - Right Renal Artery: no dissection. Originates from false lumen. - Left Renal Artery: no dissection. - ANNE: no dissection. Iliac Arteries: dissection involving the ostium of the right KAILEE. AORTIC DIMENSIONS: AORTIC ROOT: 3.7 cm measured [id number] mid DESCENDING THORACIC AORTA: 4.2 cm stable JUXTARENAL ABDOMINAL AORTA (level of SMA): 2.6 cm (more content not included)... 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 ? --?progressively enlarging aortic root aneurysm followed by:? - 06/04/2018: Redo median sternotomy, aortic root replacement with reimplantation of the coronary ?arteries and aortic valve with a 27-mm Inspiris bioprosthetic valve and 30 mm ?Valsalva graft, ascending and total arch replacement with a 28 mm Dacron graft and ?direct placement of a 28 mm x 10 cm Relay thoracic stent graft, on-table ?fenestration and stent grafting of the left subclavian artery with a 13 mm x 2.5 cm ?Viabahn covered stent, stent graft in the left common carotid artery with a 10 mm x ?2.5 cm covered stent, dissection of the left common carotid artery and dissection of ?the left subclavian artery, repair of dissected left subclavian and left common ?carotid arteries. - 07/01/2022: TEVAR from zone 3 to 5 (32mm x 209mm RELAY PRO) + Cook Zenith NIRAV from zone 5 to 9 (36mm x 180mm) + LSCA stent (VBX 11x39) + LCCA stents (ABSOLUTE 4x40 + VBX ?8x59) + False lumen embolization and endoleak repair with 2 aortic Amplatzer plugs ?at zone 3 ( 12 and 20 mm). -Evaluation for interval change. There is request to define thoracic and aortic anatomy TECHNIQUE: SCANNER: Multi-detector scanner PROTOCOL: 3-phase, non-gated spiral imaging with thin slice reconstruction was performed prior and following (arterial and venous phase) intravenous administration of contrast material Scan Range: thoracic inlet through the ischial tuberosities CT Dose-Length Product (DLP): 479 mGy*cm CT Dose Reduction Employed: Automated exposure control(AEC) and iterative recon CONTRAST: IV administration of 80 ml Omnipaque 350 Scan acquisition: uncomplicated Macro Version: [id number]_[id number] For optimization of anatomic evaluation, advanced 3-D off-line postprocessing was performed on a dedicated workstation by the interpreting physician. STUDY LIMITATIONS: None. RESULT: LINES, TUBES AND DEVICES: None CHEST: Chest wall anatomy: The patient is status post median sternotomy. Lungs: Few tiny pulmonary nodules are nonspecific. For example, there is a 2 mm left upper lobe nodule at image 87. No consolidation. No pleural effusion. No pleural thickening. Mediastinum: The imaged thyroid gland is normal. Few subcentimeter to borderline enlarged mediastinal and hilar lymph nodes are likely reactive. Esophagus is nondistended. Pericardium: Unremarkable. Central pulmonary artery: Normal dimensions, assessment is limited due to lack of contrast enhancement CARDIAC CHAMBERS: assessment is limited in the systolic phase reconstructions Left ventricle: normal size. Right ventricle: normal size Left atrium: normal size. KALIE: normal Right atrium: normal size Central and pulmonary venous return: normal. Coronary Sinus: normal size MITRAL and TRICUSPID VALVE: Assessment is limited in the current study Mitral valve leaflets are mildly thickened, No annular calcification PULMONIC VALVE: Assessment is limited in the current study. No leaflet calcification CORONARY ANATOMY: Normal origin of the coronary arteries No definitive evidence of calcified atherosclerotic changes of the coronary arteries. However, the current study is not optimized for coronary assessment. AORTIC VALVE: AVR with bioprosthetic valve. No leaflet calcification. AORTA: Size: Normal size thoracic and abdominal aorta. 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 Intervention: Extensive hybrid (surgical and endovascular) repair. Status post plug devices in the aortic arch. Complications: No residual endoleak. Extent: right common iliac artery STJ: surgical anastomosis. Wall Changes: Arch Branch Vessels: - Innominate Artery: no dissection. - Right Subclavian Artery: no dissection. - proximal Right Carotid Artery: no dissection. - proximal Left Carotid Artery: Patent stent - Left Subclavian Artery: dissection extending into the proximal segment. Patent stent - proximal Vertebral Arteries: dissection involving the ostium of the left. Visceral Branch Vessels: - Celiac Artery: no dissection. - SMA: no dissection. - Right Renal Artery: no dissection. Originates from false lumen. - Left Renal Artery: no dissection. - ANNE: no dissection. Iliac Arteries: dissection involving the ostium of the right KAILEE. AORTIC DIMENSIONS: AORTIC ROOT: 3.7 cm measured [id number] mid DESCENDING THORACIC AORTA: 4.2 cm stable JUXTAREN (more content not included)... 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 ? --?progressively enlarging aortic root aneurysm followed by:? - 06/04/2018: Redo median sternotomy, aortic root replacement with reimplantation of the coronary ?arteries and aortic valve with a 27-mm Inspiris bioprosthetic valve and 30 mm ?Valsalva graft, ascending and total arch replacement with a 28 mm Dacron graft and ?direct placement of a 28 mm x 10 cm Relay thoracic stent graft, on-table ?fenestration and stent grafting of the left subclavian artery with a 13 mm x 2.5 cm ?Viabahn covered stent, stent graft in the left common carotid artery with a 10 mm x ?2.5 cm covered stent, dissection of the left common carotid artery and dissection of ?the left subclavian artery, repair of dissected left subclavian and left common ?carotid arteries. - 07/01/2022: TEVAR from zone 3 to 5 (32mm x 209mm RELAY PRO) + Cook Zenith NIRAV from zone 5 to 9 (36mm x 180mm) + LSCA stent (VBX 11x39) + LCCA stents (ABSOLUTE 4x40 + VBX ?8x59) + False lumen embolization and endoleak repair with 2 aortic Amplatzer plugs ?at zone 3 ( 12 and 20 mm). -Evaluation for interval change. There is request to define thoracic and aortic anatomy TECHNIQUE: SCANNER: Multi-detector scanner PROTOCOL: 3-phase, non-gated spiral imaging with thin slice reconstruction was performed prior and following (arterial and venous phase) intravenous administration of contrast material Scan Range: thoracic inlet through the ischial tuberosities CT Dose-Length Product (DLP): 479 mGy*cm CT Dose Reduction Employed: Automated exposure control(AEC) and iterative recon CONTRAST: IV administration of 80 ml Omnipaque 350 Scan acquisition: uncomplicated Macro Version: [id number]_[id number] For optimization of anatomic evaluation, advanced 3-D off-line postprocessing was performed on a dedicated workstation by the interpreting physician. STUDY LIMITATIONS: None. RESULT: LINES, TUBES AND DEVICES: None CHEST: Chest wall anatomy: The patient is status post median sternotomy. Lungs: Few tiny pulmonary nodules are nonspecific. For example, there is a 2 mm left upper lobe nodule at image 87. No consolidation. No pleural effusion. No pleural thickening. Mediastinum: The imaged thyroid gland is normal. Few subcentimeter to borderline enlarged mediastinal and hilar lymph nodes are likely reactive. Esophagus is nondistended. Pericardium: Unremarkable. Central pulmonary artery: Normal dimensions, assessment is limited due to lack of contrast enhancement CARDIAC CHAMBERS: assessment is limited in the systolic phase reconstructions Left ventricle: normal size. Right ventricle: normal size Left atrium: normal size. KALIE: normal Right atrium: normal size Central and pulmonary venous return: normal. Coronary Sinus: normal size MITRAL and TRICUSPID VALVE: Assessment is limited in the current study Mitral valve leaflets are mildly thickened, No annular calcification PULMONIC VALVE: Assessment is limited in the current study. No leaflet calcification CORONARY ANATOMY: Normal origin of the coronary arteries No definitive evidence of calcified atherosclerotic changes of the coronary arteries. However, the current study is not optimized for coronary assessment. AORTIC VALVE: AVR with bioprosthetic valve. No leaflet calcification. AORTA: Size: Normal size thoracic and abdominal aorta. 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 Intervention: Extensive hybrid (surgical and endovascular) repair. Status post plug devices in the aortic arch. Complications: No residual endoleak. Extent: right common iliac artery STJ: surgical anastomosis. Wall Changes: Arch Branch Vessels: - Innominate Artery: no dissection. - Right Subclavian Artery: no dissection. - proximal Right Carotid Artery: no dissection. - proximal Left Carotid Artery: Patent stent - Left Subclavian Artery: dissection extending into the proximal segment. Patent stent - proximal Vertebral Arteries: dissection involving the ostium of the left. Visceral Branch Vessels: - Celiac Artery: no dissection. - SMA: no dissection. - Right Renal Artery: no dissection. Originates from false lumen. - Left Renal Artery: no dissection. - ANNE: no dissection. Iliac Arteries: dissection involving the ostium of the right KAILEE. AORTIC DIMENSIONS: AORTIC ROOT: 3.7 cm davion (more content not included)... [facility] No Panel Informationon 08-18 IMPRESSION: Stable e xam since 08/20/2023. 1. Type A aortic dissection status post extensive repair with aortic valve replacement, ascending aortic graft, frozen elephant trunk and endovascular stenting of the thoracoabdominal aorta to the aortic bifurcation. No evidence of endoleak. -Patent stents in the left carotid and left without arteries. Conduit Reamer Operator: CHARLIE Transcribe Date/Time: Aug 18 2024 1:28P Dictated by : NAYAN DUGAN MD This examination was interpreted and the report reviewed and electronically signed by: NAYAN DUGAN MD on Aug 18 2024 2:02PM [facility] DIVISION OF RADIOLOGY Radiology Study observation (narrative) [facility] No Panel InformationOrdered By: [facility] Provider on 08-18-2024 [facility] Gastroenterology Visit Repor ton 08-03-2024 Gastroenterology Visit Report [facility] Gastroenterology [address] [place] [address] OFFICE VISIT Date of Service: 08/03/24 MR#: [id number] Acct: [id number] Name: BECK FRAGA Jessica Rep #: [id number] : 1975 Provider: HOWARD dinh Age/Sex: 48/M Location: [facility] Status: Signed Intake Vital Signs 03/06/24 22:52 Height 5 ft 6.14 in Intake Visit Reasons: Dysphagia Chief Complaint: Dysphagia Accompanied by: Self Allergies oxycodone (From Percocet) Allergy (Verified 08/03/24 15:07) Shortness of breath atorvastatin Adverse Reaction (Severe, Verified 08/03/24 15:07) Dizziness citalopram (From Celexa) Adverse Reaction (Verified 08/03/24 15:07) erectile dysfunction Medications ???Medication ???Instructions ???Recorded ???Confirmed ???Type aspirin 81 mg chewable tablet 81 mg PO DAILY 12/30/15 07/30/24 H istory clopidogrel 75 mg tablet 75 mg PO DAILY 10/26/16 07/30/24 H istory simvastatin 20 mg tablet 20 mg PO QPM #30 tabs 05/22/18 Rx metoprolol succinate 25 mg 12.5 mg PO BID 02/05/20 07/30/24 H istory tablet,extended release 24 hr atorvastatin 40 mg tablet 40 mg PO QDAY 07/30/24 07/30/24 Hi story famotidine 40 mg tablet 40 mg PO QHS #30 tabs 08/03/24 Rx pantoprazole 40 mg tablet,delayed 40 mg PO BID #60 tabs 08/03/24 Rx release PFSH Medical History Abdominal aortic aneurysm dissection Dysautonomia-like disorder Seizure GERD (gastroesophageal reflux disease) Pneumonia Hearing problem Back problem Constipation Diarrhea Nausea vomiting Abdominal pain Heart murmur Afib History of carotid artery dissection CVA (cerebral vascular accident) Thoracoabdominal aortic dissection Hyperlipidemia Bicuspid aortic valve Surgical History History of bilateral carotid endarterectomy History of thoracic aortic aneurysm repair (05/2018) Hx of myringotomy History of appendectomy History of vasectomy History of aortic valve replacement (06/04/18) Family History Father CVA (cerebral vascular accident) Heart disease Hypertension Myocardial infarction Grandfather CAD (coronary artery disease) Mother CVA (cerebral vascular accident) Hypertension Heart disease IPF (idiopathic pulmonary fibrosis) Other Cervical cancer Colon cancer Diabetes Ovarian cancer Social History household members: none Smoking Status: Former smoker alcohol intake: never substance use type: does not use caffeine: No what type of physical activity do you participate in: walking frequency: daily duration: < 15 minutes/day seatbelt use: always do you feel safe at home: Yes HPI HPI Chief Complaint: Dysphagia Details: BECK FRAGA, is a 48 M who presents to the office today for establishment with I regarding globus sensation behind his cricoid cartilage and epigastric heartburn. He states eating food, especially drinking milk, helps the epigastric pain briefly and then 10 to 15 minutes later it's very painful again. He reports that manual external manipulation of his upper throat will some times alleviate the globus sensation, but not always. He has a significant vascular history of multiple aortic dissections and a stroke being managed by [facility]. His PCP has stopped his omeprazole, given him 30 days trial of vonoprazan of which he's been on for a week now but has not noticed a change in symptoms, improvement or worsening. He has been given simethicone which he states has made the most difference in his abdominal pain. has already ordered and MBSS, esophagram, and a consult to ENT. He notes that BBQ and tomatoes worsen epigastric pain. He reports a familial history of diverticula and colon cancer. ROS Const Constitutional: No chills, fatigue, fever(s), decreased energy or weight change Eyes Eyes: No blurry vision or change in vision ENT ENT: Positive for difficulty swallowing; No abnormal hearing Resp Respiratory: No cough Cardio Cardiology: No chest pain at rest, chest pain with exertion or leg pain with exertion Gastro GI: Positive for abdominal pain, bloating, heartburn and difficulty swallowing; No belching, change in bowel habits, change in stool character, coffee ground emesis, constipation, cramping, diarrhea, feeling full early, excessive flatus, incontinent of stools, Vomiting blood/hematemesis, Blood in stool, loose stools, Black,tarry stools, nausea/dyspepsia, pain with swallowing, vomiting or other Genitourinary Male: No difficulty urinating Musc Musculoskeletal: No leg pain with exertion Skin Skin: No yellowing of the eye or itchy eyes Zhou (more content not included)... Normal [facility] Absolute lymphocyte countOrd ered By: Nguyễn Stark on 06-07-2024 Lymphocytes Auto (Unsp spec) [#/Vol] 1.92 10*3/uL 0.83-4.51 [facility] Absolute neutrophil countOrd ered By: Nguyễn Stark on 06-07-2024 Neutrophils (Bld) [#/Vol] 4.7 10*3/uL 2.0-7.7 [facility] Albumin to globulin ratioOrd ered By: Nguyễn Stark on 06-07-2024 Albumin/Globulin [Mass ratio] 1.3 {ratio} Normal 0.9-2.4 [facility] Comment on above: Performed By: #### L 500.4050, L501.9520, L500.4100, L100.0100 ####[facility] [address] [place], [address] Automated blood erythrocyte countOrdered By: Nguyễn Lincoln on 06-07-2024 RBC (Bld) [#/Vol] 5.45 10*6/uL Normal 4.6-6.2 [facility] Comment on above: Performed By: #### L 500.4050, L501.9520, L500.4100, L100.0100 ####[facility] [address] [place], [address] Automated blood hematocrit ( percentage)Ordered By: Nguyễn Lincoln on 06-07-2024 Hematocrit (Bld) [Volume fraction] 46.8 % Normal 40-54 [facility] Comment on above: Performed By: #### L 500.4050, L501.9520, L500.4100, L100.0100 ####[facility] [address] [place], [address] Automated lymphocyte count a s percentage of total leukocytesOrdered By: Nguyễn Lincoln on 06-07-2024 Lymphocytes/100 WBC Auto (Unsp spec) 25.7 % 19-41 [facility] Basophil percentageOrdered B y: Nguyễn Stark on 06-07-2024 Basophils/100 WBC (Bld) 0.5 % Normal 0-1 [facility] Comment on above: Performed By: #### L 500.4050, L501.9520, L500.4100, L100.0100 ####[facility] [address] [place], [address] Bilirubin, totalOrdered By: Nguyễn Stark on 06-07-2024 Bilirubin [Mass/Vol] 0.70 mg/dL Normal 0.20-1.00 [facility] Comment on above: For patients on eltr ombopag therapy, use of Dimension [place] TBIL is not recommended. Result Comment: For patients on eltrombopag therapy, use of Dimension [place] TBIL is not recommended. Performed By: #### L 500.4050, L501.9520, L500.4100, L100.0100 ####[facility] [address] [place], [address] Blood urea nitrogen (BUN)/cr eatinine ratioOrdered By: Nguyễn Stark on 06-07-2024 Urea nitrogen/Creatinine [Mass ratio] 12.7 mg/mg - [facility] CBC W/Diff, Automatedon 05-16 Absolute Lymph 1.92 X10 3/uL Normal 0.83-4.51 [facility] Comment on above: Performed By: #### L 500.4050, L501.9520, L500.4100, L100.0100 ####[facility] [address] [place], [address] Absolute Neut 4.7 X10 3/uL Normal 2.0-7.7 [facility] Comment on above: Performed By: #### L 500.4050, L501.9520, L500.4100, L100.0100 ####[facility] [address] [place], [address] IG% 0.700 Normal 0.0-0.9 [facility] Comment on above: Result Comment: IG% - Immature Granulocytes (promyelocytes, myelocytes and metamyelocytes) > 1% indicates that a LEFT SHIFT is Present. Performed By: #### L 500.4050, L501.9520, L500.4100, L100.0100 ####[facility] [address] [place], [address] Lymphocytes/100 WBC (Bld) 25.7 % Normal 19-41 [facility] Comment on above: Performed By: #### L 500.4050, L501.9520, L500.4100, L100.0100 ####[facility] [address] [place], [address] Nucleated RBC (Bld) [#/Vol] 0 10*3/uL Normal 0-5 [facility] Comment on above: Performed By: #### L 500.4050, L501.9520, L500.4100, L100.0100 ####[facility] [address] [place], [address] RDW SD 39.6 fl Normal 35.1-43.9 [facility] Comment on above: Performed By: #### L 500.4050, L501.9520, L500.4100, L100.0100 ####[facility] [address] [place], [address] Carbon dioxide measurementOr dered By: Nguyễn Stark on 06-07-2024 CO2 [Moles/Vol] 26.0 mmol/L Normal 21.0-32.0 [facility] Comment on above: Performed By: #### L 500.4050, L501.9520, L500.4100, L100.0100 ####[facility] [address] [place], [address] Chloride measurementOrdered By: Nguyễn Stark on 06-07-2024 Chloride [Moles/Vol] 109 mmol/L High 98-107 [facility] Comment on above: Performed By: #### L 500.4050, L501.9520, L500.4100, L100.0100 ####[facility] [address] [place], [address] Comprehensive Metabolic Prof ilon 06-07-2024 ALK P 108 U/L Normal 45-117 [facility] Comment on above: Performed By: #### L 500.4050, L501.9520, L500.4100, L100.0100 ####[facility] [address] [place], [address] BUN/CRE 12.7 RATIO Normal 10-20 [facility] Comment on above: Performed By: #### L 500.4050, L501.9520, L500.4100, L100.0100 ####[facility] [address] [place], [address] CA,Total 8.9 mg/dL Normal 8.5-10.1 [facility] Comment on above: Performed By: #### L 500.4050, L501.9520, L500.4100, L100.0100 ####[facility] [address] [place], [address] EST GFR - AA 91 mL/min Normal >60 [facility] Comment on above: Result Comment: Afri can Montserratian GFR Calc Performed By: #### L 500.4050, L501.9520, L500.4100, L100.0100 ####[facility] [address] [place], [address] GAP 6 Normal 5-15 [facility] Comment on above: Performed By: #### L 500.4050, L501.9520, L500.4100, L100.0100 ####[facility] [address] [place], [address] T PROT 7.0 g/dL Normal 6.4-8.2 [facility] Comment on above: Performed By: #### L 500.4050, L501.9520, L500.4100, L100.0100 ####[facility] [address] [place], [address] Comprehensive Metabolic Prof ilOrdered By: Nguyễn Stark on 06-07-2024 AST [Catalytic activity/Vol] 26 U/L Normal 15-37 [facility] Comment on above: Performed By: #### L 500.4050, L501.9520, L500.4100, L100.0100 ####[facility] [address] [place], [address] Eosinophil percentageOrdered By: Nguyễn Stark on 06-07-2024 Eosinophils/100 WBC (Bld) 1.5 % Normal 0-5 [facility] Comment on above: Performed By: #### L 500.4050, L501.9520, L500.4100, L100.0100 ####[facility] [address] [place], [address] Erythrocyte distribution wid th ratioOrdered By: Nguyễn Stark on 06-07-2024 Erythrocyte distribution width (RBC) [Ratio] 12.9 % Normal 11.6-14.6 [facility] Comment on above: Performed By: #### L 500.4050, L501.9520, L500.4100, L100.0100 ####[facility] [address] [place], [address] Erythrocyte distribution wid th standard deviationOrdered By: Nguyễn Stark on 06-07-2024 Erythrocyte distribution width (RBC) [Ratio] 39.6 fl 35.1-43.9 [facility] Glomerular filtration rate ( GFR) estimationOrdered By: Nguyễn Stark on 06-07-2024 GFR/1.73 sq M.predicted among non-blacks MDRD (S/P/Bld) [Vol rate/Area] 75 mL/min/{1.73_m2} Normal >60 [facility] Comment on above: Non- GFR Calc Result Comment: Non- GFR Calc Performed By: #### L 500.4050, L501.9520, L500.4100, L100.0100 ####[facility] [address] [place], [address] Glucose measurementOrdered B y: Nguyễn Stark on 06-07-2024 Glucose [Mass/Vol] 76 mg/dL Normal 74-106 [facility] Comment on above: Performed By: #### L 500.4050, L501.9520, L500.4100, L100.0100 ####[facility] [address] [place], [address] Hemoglobin measurementOrdere d By: Nguyễn Stark on 06-07-2024 Hemoglobin (Bld) [Mass/Vol] 15.5 g/dL Normal 13.0-16.5 [facility] Comment on above: Performed By: #### L 500.4050, L501.9520, L500.4100, L100.0100 ####[facility] [address] [place], [address] High density lipoprotein (HD L) measurementOrdered By: Nguyễn Stark on 06-07-2024 Cholesterol in HDL [Mass/Vol] 41 mg/dL Normal [facility] Comment on above: The drugs N-Acetylcy steine and Metamizole may falsely depress this assay. Reference Range HDL <40 mg/dL Low HDL Cholesterol HDL >or= 60 mg/dL High HDL Cholesterol Result Comment: The drugs N-Acetylcysteine and Metamizole may falsely depress this assay. Reference Range HDL <40 mg/dL Low HDL Cholesterol HDL >or= 60 mg/dL High HDL Cholesterol Performed By: #### L 500.4050, L501.9520, L500.4100, L100.0100 ####[facility] [address] [place], [address] Immature granulocytes/100 WB C Auto (Bld)Ordered By: Nguyễn Stark on 06-07-2024 Immature granulocytes/100 WBC (Bld) 0.700 % 0.0-0.9 [facility] Comment on above: IG% - Immature Granu locytes (promyelocytes, myelocytes and metamyelocytes) > 1% indicates that a LEFT SHIFT is Present. Lipid Profileon 06-07-2024 Cholesterol in VLDL [Mass/Vol] 34 mg/dL Normal 5-40 [facility] Comment on above: Performed By: #### L 500.4050, L501.9520, L500.4100, L100.0100 ####[facility] [address] [place], [address] Low density lipoprotein (LDL ) cholesterol measurementOrdered By: Nguyễn Stark on 06-07-2024 Cholesterol in LDL [Mass/Vol] 48 mg/dL Normal 0-130 [facility] Comment on above: Performed By: #### L 500.4050, L501.9520, L500.4100, L100.0100 ####[facility] [address] [place], [address] MCV (mean corpuscular volume ) determinationOrdered By: Nguyễn Stark on 06-07-2024 MCV (RBC) [Entitic vol] 85.9 fL Normal 80-94 [facility] Comment on above: Performed By: #### L 500.4050, L501.9520, L500.4100, L100.0100 ####[facility] [address] [place], [address] Mean corpuscular hemoglobin (MCH) determinationOrdered By: Nguyễn Stark on 06-07-2024 MCH (RBC) [Entitic mass] 28.4 pg Normal 27.0-32.0 [facility] Comment on above: Performed By: #### L 500.4050, L501.9520, L500.4100, L100.0100 ####[facility] [address] [place], [address] Mean corpuscular hemoglobin concentration (MCHC) determinationOrdered By: Nguyễn Stark on 06-07-2024 MCHC (RBC) [Mass/Vol] 33.1 g/dL Normal 32-36 [facility] Comment on above: Performed By: #### L 500.4050, L501.9520, L500.4100, L100.0100 ####[facility] [address] [place], [address] Mean platelet volume determi nationOrdered By: Nguyễn Stark on 06-07-2024 Platelet mean volume (Bld) [Entitic vol] 10.8 fL Normal 6.2-12.0 [facility] Comment on above: Performed By: #### L 500.4050, L501.9520, L500.4100, L100.0100 ####[facility] [address] [place], [address] Monocyte percentageOrdered B y: Nguyễn Stark on 06-07-2024 Monocytes/100 WBC (Bld) 8.6 % Normal 0-10 [facility] Comment on above: Performed By: #### L 500.4050, L501.9520, L500.4100, L100.0100 ####[facility] [address] [place], [address] Neutrophil percentageOrdered By: Nguyễn Stark on 06-07-2024 Neutrophils/100 WBC (Bld) 63.0 % Normal 47-70 [facility] Comment on above: Performed By: #### L 500.4050, L501.9520, L500.4100, L100.0100 ####[facility] [address] [place], [address] Nucleated red blood cell per centageOrdered By: Nguyễn Stark on 06-07-2024 Nucleated RBC/100 WBC (Bld) [Ratio] 0 % 0-5 [facility] Platelet countOrdered By: Marcio Stark on 06-07-2024 Platelets (Bld) [#/Vol] 209 10*3/uL Normal 150-450 [facility] Comment on above: Performed By: #### L 500.4050, L501.9520, L500.4100, L100.0100 ####[facility] [address] [place], [address] Potassium measurementOrdered By: Nguyễn Stark on 06-07-2024 Potassium [Moles/Vol] 4.1 mmol/L Normal 3.5-5.1 [facility] Comment on above: Performed By: #### L 500.4050, L501.9520, L500.4100, L100.0100 ####[facility] [address] [place], [address] Serum anion gap measurementO rdered By: Nguyễn Stark on 06-07-2024 Anion gap [Moles/Vol] 6 mmol/L 5-15 [facility] Serum globulin measurementOr dered By: Nguyễn Stark on 06-07-2024 Globulin (S) [Mass/Vol] 3.1 g/dL Normal 2.2-4.2 [facility] Comment on above: Performed By: #### L 500.4050, L501.9520, L500.4100, L100.0100 ####[facility] [address] [place], [address] Serum or plasma alanine jung otransferase (ALT) measurementOrdered By: Nguyễn Stark on 06-07-2024 ALT [Catalytic activity/Vol] 40 U/L Normal 16-61 [facility] Comment on above: Performed By: #### L 500.4050, L501.9520, L500.4100, L100.0100 ####[facility] [address] [place], [address] Serum or plasma albumin sathish urement (mass/volume)Ordered By: Nguyễn Stark on 06-07-2024 Albumin [Mass/Vol] 3.9 g/dL Normal 3.2-5.0 [facility] Comment on above: Performed By: #### L 500.4050, L501.9520, L500.4100, L100.0100 ####[facility] [address] [place], [address] Serum or plasma alkaline kaden sphatase measurementOrdered By: Nguyễn Stark on 06-07-2024 ALP [Catalytic activity/Vol] 108 U/L 45-117 [facility] Serum or plasma calcium sathish urement (mass/volume)Ordered By: Nguyễn Stark on 06-07-2024 Calcium [Mass/Vol] 8.9 mg/dL 8.5-10.1 [facility] Serum or plasma cholesterol measurement (mass/volume)Ordered By: Nguyễn Stark on 06-07-2024 Cholesterol [Mass/Vol] 123 mg/dL Normal 200 [facility] Comment on above: <200 mg/dL Desirable 200-240 mg/dL Borderline >240 mg/dL High Risk Result Comment: <200 mg/dL Desirable 200-240 mg/dL Borderline >240 mg/dL High Risk Performed By: #### L 500.4050, L501.9520, L500.4100, L100.0100 ####[facility] [address] [place], [address] Serum or plasma creatinine m easurement (mass/volume)Ordered By: Nguyễn Stark on 06-07-2024 Creatinine [Mass/Vol] 1.10 mg/dL Normal 0.70-1.30 [facility] Comment on above: The validity of the calculated GFR & GFRAA in patients over 70 years has not been determined. Clinical correlation is essential. Result Comment: The validity of the calculated GFR GFRAA in patients over 70 years has not been determined. Clinical correlation is essential. Performed By: #### L 500.4050, L501.9520, L500.4100, L100.0100 ####[facility] [address] [place], [address] Serum or plasma thyroid stim ulating hormone (TSH) measurement (units/volume)Ordered By: Nguyễn Stark on 06-07-2024 TSH Qn 3.710 uIU/mL 0.358-3.74 0 [facility] Serum or plasma urea nitroge n measurement (mass/volume)Ordered By: Nguyễn Stark on 06-07-2024 Urea nitrogen [Mass/Vol] 14 mg/dL Normal 7-18 [facility] Comment on above: Performed By: #### L 500.4050, L501.9520, L500.4100, L100.0100 ####[facility] [address] [place], [address] Sodium levelOrdered By: Nguyễn Stark on 06-07-2024 Sodium [Moles/Vol] 140 mmol/L Normal 136-145 [facility] Comment on above: Performed By: #### L 500.4050, L501.9520, L500.4100, L100.0100 ####[facility] [address] [place], [place], [address] Thyroid Stim Hormone (TSH)on 06-07-2024 TSH 3.710 uIU/mL Normal 0.358-3.74 0 [facility] Comment on above: Performed By: #### L 500.4050, L501.9520, L500.4100, L100.0100 ####[facility] [address] [place], [place], [address] Total proteinOrdered By: Nguyễn Stark on 06-07-2024 Protein [Mass/Vol] 7.0 g/dL 6.4-8.2 [facility] Triglycerides measurementOrd ered By: Nguyễn Stark on 06-07-2024 Triglyceride [Mass/Vol] 170 mg/dL Normal [facility] Comment on above: The drugs N-Acetylcy steine and Metamizole may falsely depress this assay.Serum Triglycerides Reference Interval Normal <150 mg/dL Borderline high 150 - 199 mg/dL High 200 - 499 mg/dL Very High > or = 500 mg/dL Result Comment: The drugs N-Acetylcysteine and Metamizole may falsely depress this assay. Serum Triglycerides Reference Interval Normal <150 mg/dL Borderline high 150 - 199 mg/dL High 200 - 499 mg/dL Very High > or = 500 mg/dL Performed By: #### L 500.4050, L501.9520, L500.4100, L100.0100 ####[facility] [address] [place], [address] Very low density lipoprotein (VLDL) cholesterol measurementOrdered By: Nguyễn Stark on 06-07-2024 Very low density lipoprotein (VLDL) cholesterol measurement 34 mg/dL 5-40 [facility] White blood cell (WBC) count Ordered By: Nguyễn Stark on 06-07-2024 WBC (Bld) [#/Vol] 7.5 10*3/uL Normal 4.4-11.0 [facility] Comment on above: Performed By: #### L 500.4050, L501.9520, L500.4100, L100.0100 ####[facility] [address] [place], [address] Abdomen/Pelvis WITH Contrast on 03-08-2024 Abdomen/Pelvis WITH Contrast [facility] Imaging Services [address] [place] [address] Abdomen/Pelvis WITH Contrast MR#: [id number] Acct: [id number] Name: BECK FRAGA Rep #: [id number] : 1975 M 48 From: Davion Paulson MD PCP: Dr. Nguyễn Stark MD Status: REG CLI Study: Abdomen/Pelvis WITH Contrast Date of Exam: Exam# [id number] Ordering Dr: Nguyễn Stark MD 0:[id number] STUDY: CT ABDOMEN AND PELVIS WITH CONTRAST REASON FOR EXAM: Male, 48 years old. ABDOMINAL PAIN RADIATION DOSAGE (If Supplied By Facility): CTDIvol = ( 12.52 ) mGy, DLP = ( 793.81 ) mGycm TECHNIQUE: Transaxial images were obtained from the dome of the diaphragm to the symphysis pubis without oral contrast. Oral and amp; IV Gastrografin and amp; 100mL Isovue-370 was administered. Sagittal and coronal images were reconstructed. Individualized dose optimization techniques were used for this CT. COMPARISON: February 20, 2022 FINDINGS: The visualized lung bases are unremarkable. The visualized portions of the heart are within normal limits. Descending aortic graft is noted. Nonspecific fatty infiltrated liver. There are scattered tiny hypoattenuated densities which are too small to characterize but most likely cysts. Bile ducts are not dilated. Normal gallbladder and extrahepatic biliary system. Normal spleen. Normal pancreas. Normal bilateral adrenal glands. Normal right kidney. Normal left kidney. Normal visualized stomach. Normal small intestine. Diverticular disease of the distal descending and sigmoid colon without evidence for acute diverticulitis. No evidence for acute appendicitis Known chronic aortic dissection is noted extending to the level of the right common iliac status post grafting. Normal inferior vena cava. Normal retroperitoneum. Normal urinary bladder. Small bilateral fat-containing inguinal hernias are observed Normal osseous structures. CT/Abdomen/Pelvis WITH Contrast IMPRESSION: Diverticular changes of the distal descending and proximal sigmoid colon without evidence for acute diverticulitis No evidence for small bowel obstruction or other acute abnormality. Known aortic dissection extending to the right common iliac status post grafting However no prior studies are available for comparison at this time. Recommend correlation with prior studies to assess for interval changes of the status of the dissection Electronically Signed: Davion Paulson MD at 20:27 EST Reading Location ID and State: [address] [place] [address] Tel , Service support , CC: Dr. Nguyễn Stark MD Conduit Reamer Operator: Signed Normal [facility] Urinalysis, Routine (Dipstic k)on 03-08-2024 BILIRUBIN URINE Negative Normal Negative [facility] Comment on above: Order Comment: NON A UTO MICRSCPYCLEAN CATCH Performed By: #### L 400.2010 ####[facility] [address] [place], [place], [id number] Clarity (U) Clear Normal Clear [facility] Comment on above: Order Comment: NON A UTO MICRSCPYCLEAN CATCH Performed By: #### L 400.2010 ####[facility] [address] [place], [place], [id number] Color (U) Yellow Normal Yellow [facility] Comment on above: Order Comment: NON A UTO MICRSCPYCLEAN CATCH Performed By: #### L 400.2010 ####[facility] [address] [place], [address] GLUCOSE, UR Normal Normal Normal [facility] Comment on above: Order Comment: NON A UTO MICRSCPYCLEAN CATCH Performed By: #### L 400.2010 ####[facility] [address] [place], [address] KETONE UR Negative Normal Negative [facility] Comment on above: Order Comment: NON A UTO MICRSCPYCLEAN CATCH Performed By: #### L 400.2010 ####[facility] [address] [place], [address] LEUK ESTERASE Negative Normal Negative [facility] Comment on above: Order Comment: NON A UTO MICRSCPYCLEAN CATCH Performed By: #### L 400.2010 ####[facility] [address] [place], [address] Nitrite Ql (U) Negative Normal Negative [facility] Comment on above: Order Comment: NON A UTO MICRSCPYCLEAN CATCH Performed By: #### L 400.2010 ####[facility] [address] [place], [address] OCCULT BLOOD-UR Negative Normal Negative [facility] Comment on above: Order Comment: NON A UTO MICRSCPYCLEAN CATCH Performed By: #### L 400.2010 ####[facility] [address] [place], [address] pH UR 6.0 Normal 5.0 - 8.0 [facility] Comment on above: Order Comment: NON A UTO MICRSCPYCLEAN CATCH Performed By: #### L 400.2010 ####[facility] [address] [place], [address] PROT DIPSTX 15 mg/dl Abnormal Negative [facility] Comment on above: Order Comment: NON A UTO MICRSCPYCLEAN CATCH Performed By: #### L 400.2010 ####[facility] [address] [place], [place], [address] SP.GR. DIPSTX 1.020 Normal 1.002-1.03 0 [facility] Comment on above: Order Comment: NON A UTO MICRSCPYCLEAN CATCH Performed By: #### L 400.2010 ####[facility] [address] [place], [place], [id number] UROBILI Normal Normal Normal [facility] Comment on above: Order Comment: NON A UTO MICRSCPYCLEAN CATCH Performed By: #### L 400.2010 ####[facility] [address] [place], [place], [id number] 12 Lead EKGon 03-06-2024 12 Lead EKG [facility] Cardiovascular Services [address] [place] [address] 12 Lead EKG 03/06/24 2259 MR#: [id number] Acct: [id number] Name: BECK FRAGA Rep #: [id number] : 1975 48 From: Min Fournier MD Attending Dr: Status: DEP ER Ordering Dr: Vinnie Jean MD Date: 03/06/24 Location: ED Sex: M C Admitted: Test Reason : CP Blood Pressure : */* mmHG Vent. Rate : 56 BPM Atrial Rate : 56 BPM P-R Int : 174 ms QRS Dur : 100 ms QT Int : 416 ms P-R-T Axes : 29 -42 57 degrees QTcB Int : 401 ms Sinus bradycardia Left axis deviation Abnormal ECG Confirmed by Min Fournier ([id number]), design editor NABEEL STALEY ([id number]) on 03/09/2024 10:27:00 AM Referred By: DR JEAN Confirmed By: Min Fournier 03/09/24 1027 Date Min Fournier MD CC: Dr. Nguyễn Stark MD; Dr. Vinnie Jean MD Signed Normal [facility] Basic Metabolic Profile (BMP )on 03-06-2024 BUN/CRE 13.0 RATIO Normal - [facility] Comment on above: Performed By: #### L 100.0100, L500.2500 ####[facility] [address] [place], [address] CA,Total 9.1 mg/dL Normal 8.5-10.1 [facility] Comment on above: Performed By: #### L 100.0100, L500.2500 ####[facility] [address] [place], [address] Chloride [Moles/Vol] 110 mmol/L High 98-107 [facility] Comment on above: Performed By: #### L 100.0100, L500.2500 ####[facility] [address] [place], [address] CO2 [Moles/Vol] 27.0 mmol/L Normal 21.0-32.0 [facility] Comment on above: Performed By: #### L 100.0100, L500.2500 ####[facility] [address] [place], [address] Creatinine [Mass/Vol] 1.08 mg/dL Normal 0.70-1.30 [facility] Comment on above: Result Comment: The validity of the calculated GFR GFRAA in patients over 70 years has not been determined. Clinical correlation is essential. Performed By: #### L 100.0100, L500.2500 ####[facility] [address] [place], [address] ECRCL 81.96 ml/min Normal [facility] Comment on above: Performed By: #### L 100.0100, L500.2500 ####[facility] [address] [place], [address] EST GFR - AA 93 mL/min Normal >60 [facility] Comment on above: Result Comment: Afri can Montserratian GFR Calc Performed By: #### L 100.0100, L500.2500 ####[facility] [address] [place], [address] GAP 5 Normal 5-15 [facility] Comment on above: Performed By: #### L 100.0100, L500.2500 ####[facility] [address] [place], [address] GFR/1.73 sq M.predicted among non-blacks MDRD (S/P/Bld) [Vol rate/Area] 77 mL/min/{1.73_m2} Normal >60 [facility] Comment on above: Result Comment: Non- GFR Calc Performed By: #### L 100.0100, L500.2500 ####[facility] [address] [place], [address] Glucose [Mass/Vol] 98 mg/dL Normal 74-106 [facility] Comment on above: Performed By: #### L 100.0100, L500.2500 ####[facility] [address] [place], [address] Potassium [Moles/Vol] 4.0 mmol/L Normal 3.5-5.1 [facility] Comment on above: Performed By: #### L 100.0100, L500.2500 ####[facility] [address] [place], [address] Sodium [Moles/Vol] 142 mmol/L Normal 136-145 [facility] Comment on above: Performed By: #### L 100.0100, L500.2500 ####[facility] [address] [place], [address] Urea nitrogen [Mass/Vol] 14 mg/dL Normal 7-18 [facility] Comment on above: Performed By: #### L 100.0100, L500.2500 ####[facility] [address] [place], [address] CBC W/Diff, Automatedon 11-2 Absolute Lymph 1.76 X10 3/uL Normal 0.83-4.51 [facility] Comment on above: Performed By: #### L 100.0100, L500.2500 ####[facility] [address] [place], [address] Absolute Neut 5.2 X10 3/uL Normal 2.0-7.7 [facility] Comment on above: Performed By: #### L 100.0100, L500.2500 ####[facility] [address] [place], [address] Basophils/100 WBC (Bld) 0.4 % Normal 0-1 [facility] Comment on above: Performed By: #### L 100.0100, L500.2500 ####[facility] [address] [place], [address] Eosinophils/100 WBC (Bld) 0.9 % Normal 0-5 [facility] Comment on above: Performed By: #### L 100.0100, L500.2500 ####[facility] [address] [place], [address] Erythrocyte distribution width (RBC) [Ratio] 12.2 % Normal 11.6-14.6 [facility] Comment on above: Performed By: #### L 100.0100, L500.2500 ####[facility] [address] [place], [address] Hematocrit (Bld) [Volume fraction] 47.1 % Normal 40-54 [facility] Comment on above: Performed By: #### L 100.0100, L500.2500 ####[facility] [address] [place], [address] Hemoglobin (Bld) [Mass/Vol] 15.9 g/dL Normal 13.0-16.5 [facility] Comment on above: Performed By: #### L 100.0100, L500.2500 ####[facility] [address] [place], [address] IG% 0.300 Normal 0.0-0.9 [facility] Comment on above: Result Comment: IG% - Immature Granulocytes (promyelocytes, myelocytes and metamyelocytes) > 1% indicates that a LEFT SHIFT is Present. Performed By: #### L 100.0100, L500.2500 ####[facility] [address] [place], [address] Lymphocytes/100 WBC (Bld) 23.1 % Normal 19-41 [facility] Comment on above: Performed By: #### L 100.0100, L500.2500 ####[facility] [address] [place], [address] MCH (RBC) [Entitic mass] 29.0 pg Normal 27.0-32.0 [facility] Comment on above: Performed By: #### L 100.0100, L500.2500 ####[facility] [address] [place], [address] MCHC (RBC) [Mass/Vol] 33.8 g/dL Normal 32-36 [facility] Comment on above: Performed By: #### L 100.0100, L500.2500 ####[facility] [address] [place], [address] MCV (RBC) [Entitic vol] 85.9 fL Normal 80-94 [facility] Comment on above: Performed By: #### L 100.0100, L500.2500 ####[facility] [address] [place], [address] Monocytes/100 WBC (Bld) 7.1 % Normal 0-10 [facility] Comment on above: Performed By: #### L 100.0100, L500.2500 ####[facility] [address] [place], [address] Neutrophils/100 WBC (Bld) 68.2 % Normal 47-70 [facility] Comment on above: Performed By: #### L 100.0100, L500.2500 ####[facility] [address] [place], [address] Nucleated RBC (Bld) [#/Vol] 0 10*3/uL Normal 0-5 [facility] Comment on above: Performed By: #### L 100.0100, L500.2500 ####[facility] [address] [place], [address] Platelet mean volume (Bld) [Entitic vol] 10.8 fL Normal 6.2-12.0 [facility] Comment on above: Performed By: #### L 100.0100, L500.2500 ####[facility] [address] [place], [address] Platelets (Bld) [#/Vol] 238 10*3/uL Normal 150-450 [facility] Comment on above: Performed By: #### L 100.0100, L500.2500 ####[facility] [address] [place], [address] RBC (Bld) [#/Vol] 5.48 10*6/uL Normal 4.6-6.2 [facility] Comment on above: Performed By: #### L 100.0100, L500.2500 ####[facility] [address] [place], [address] RDW SD 38.3 fl Normal 35.1-43.9 [facility] Comment on above: Performed By: #### L 100.0100, L500.2500 ####[facility] [address] [place], [address] WBC (Bld) [#/Vol] 7.6 10*3/uL Normal 4.4-11.0 [facility] Comment on above: Performed By: #### L 100.0100, L500.2500 ####[facility] [address] [place], [address] Chest PA and Lateralon 03-06 Chest PA and Lateral [facility] Imaging Services [address] [place] [address] Chest PA and Lateral MR#: [id number] Acct: [id number] Name: BECK FRAGA Rep #: [id number] : 1975 M 48 From: Min Quiros PCP: Dr. Nguyễn Stark MD Status: REG ER Study: Chest PA and Lateral Date of Exam: 03/06/24 Exam# [id number] Ordering Dr: Vinnie Jean MD [id number] EXAM: XR CHEST, 2 VIEWS CLINICAL INDICATION: Dyspnea and pleuritic pain TECHNIQUE: Frontal and lateral views of the chest. COMPARISON: 02/26/2022. FINDINGS: LUNGS AND PLEURAL SPACES: Unremarkable. No consolidation or edema. No pneumothorax. No effusion. HEART: See below. MEDIASTINUM: Central airways and mediastinal contour are unremarkable. BONES/JOINTS: Sternal wires. No acute fracture. SOFT TISSUES: Unremarkable. VASCULATURE: Compared with the previous examination there has been extension of the stent graft that now involves the entire descending thoracic aorta and visualized upper abdominal aorta. Status post aortic valvuloplasty. RAD/Chest PA and Lateral IMPRESSION: 1. Compared with the previous examination there has been extension of the stent graft that now involves the entire descending thoracic aorta and visualized upper abdominal aorta. 2. Status post aortic valvuloplasty. 3. No acute cardiopulmonary abnormality. Electronically Signed: Min Segundo MD at 0:11 EST , CC: Dr. Nguyễn Stark MD; Dr. Vinnie Jean MD Conduit Reamer Operator: Signed Normal [facility] Emergency Department Summary on 03-06-2024 Emergency Department Summary [facility] Medical Records Department [address] [place] [address] Emergency Department Summary 03/06/24 MR#: [id number] Acct: [id number] Name: BECK FRAGA Rep #: [id number] : 1975 48 From: Vinnie Jean MD PCP: Dr. Nguyễn Stark MD Status:REG ER Location: ED HPI History of Present Illness Chief Complaint: Chest Pain Detail of Chief Complaint: Patient does not have chest pain. He has pain lateral aspect of his abdome Informant: patient Onset/Context/Timing Onset: Today (Hours prior to presentation.) Context: Sudden Onset Timing: Intermittent (Hurts when he breathes) Quality: Pain lateral upper abdomen on the right described as pain as if someone kic Location: Right lateral abdomen Current Severity: 0/10 Maximum Severity: Moderate Worsened by: Breathing Relieved by: Not applicable Associated Symptoms Associated Symptoms: No other symptoms Narrative Narrative: Patient is a 48-year-old male. He presents with upper lateral right-sided abdominal pain that hurts worse when he breathes. He denies history of VTE. He denies leg pain, swelling discoloration. He is on aspirin as well as Plavix. 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 He did have a stroke as well. He is not on an anticoagulant. He presents because of pain right side. He denies food intolerance. He denies nausea, vomiting or diarrhea. He does have a slight cough. He has not smoked since 2013. His cough is nonproductive. He denies back or flank pain. He denies history of renal or ureterolithiasis. He denies dysuria, frequency, urgency or hematuria. There is no history of direct or indirect trauma. 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 Seizure GERD (gastroesophageal reflux disease) Pneumonia Hearing problem Back problem Constipation Diarrhea Nausea vomiting Abdominal pain Heart murmur Afib History of carotid artery dissection CVA (cerebral vascular accident) Thoracoabdominal aortic dissection Hyperlipidemia Bicuspid aortic valve Home Medications ???Medication ???Instructions ???Recorded ???Last Taken ???Type aspirin 81 mg chewable tablet 81 mg PO DAILY 12/30/15 Unknown History clopidogrel 75 mg tablet 75 mg PO DAILY 10/26/16 Unknown History simvastatin 20 mg tablet 20 mg PO QPM #30 tabs 05/22/18 Unknown Rx metoprolol succinate 25 mg 12.5 mg PO BID 02/05/20 Unknown History tablet,extended release 24 hr omeprazole 20 mg capsule,delayed 20 mg PO DAILY 02/05/20 Unknown History release citalopram 10 mg tablet (Celexa) 10 mg PO DAILY 05/10/22 Unknown History Allergy/AdvReac Type Severity Reaction Status Date / Time oxycodone (From Percocet) Allergy Shortness Verified 03/06/24 22:52 of breath atorvastatin AdvReac Severe Dizziness Verified 03/06/24 22:52 citalopram (From Celexa) AdvReac erectile Verified 03/06/24 22:52 dysfunction Family History Father CVA (cerebral vascular accident) Heart disease Hypertension Myocardial infarction Grandfather CAD (coronary artery disease) Mother CVA (cerebral vascular accident) Hypertension Heart disease IPF (idiopathic pulmonary fibrosis) Other Cervical cancer Colon cancer Diabetes Ovarian cancer Surgical History History of bilateral carotid endarterectomy History of thoracic aortic aneurysm repair (05/2018) Hx of myringotomy History of appendectomy History of vasectomy History of aortic valve replacement (06/04/18) Social History household members: none Smoking Status: Former smoker alcohol intake: never substance use type: does not use caffeine: No what type of physical activity do you participate in: walking frequency: daily duration: < 15 minutes/day seatbelt use: always do you feel safe at home: Yes ROS ROS ED Constitutional Constitutional ED: Denies chills, fever(s), subjective or sweats Eyes Eyes: Denies blurry vision or change in vision ENT ENT ED: Denies ear pain, rhinorrhea or sore throat Cardiovascular Cardiovascular: Denies chest pain, orthopnea, palpitations, paroxysmal nocturnal dyspnea or racing heartbeat Respiratory/Chest Respiratory/Chest: Reports cough, dyspnea and other Details: Patient states his dyspnea started 2 days ago and was intermittent. An episode yesterday that lasted a couple hours. He stated when the pain started he had some shortness of breath. ; Denies dyspnea on exertion, orthopnea, paroxysmal nocturnal dyspnea or sputum Gastrointestinal Gastrointestinal: Reports abdominal pa (more content not included)... Normal [facility] CBC W/Diff, Automatedon 11-13 Absolute Lymph 1.20 X10 3/uL Normal 0.83-4.51 [facility] Comment on above: Performed By: #### L 100.0100, L500.4100, L500.4050, L501.9520 #### [facility] [address] [place], [address] Absolute Neut 4.0 X10 3/uL Normal 2.0-7.7 [facility] Comment on above: Performed By: #### L 100.0100, L500.4100, L500.4050, L501.9520 #### [facility] [address] [place], [address] Basophils/100 WBC (Bld) 0.7 % Normal 0-1 [facility] Comment on above: Performed By: #### L 100.0100, L500.4100, L500.4050, L501.9520 #### [facility] [address] [place], [address] Eosinophils/100 WBC (Bld) 1.2 % Normal 0-5 [facility] Comment on above: Performed By: #### L 100.0100, L500.4100, L500.4050, L501.9520 #### [facility] [address] [place], [address] Erythrocyte distribution width (RBC) [Ratio] 12.5 % Normal 11.6-14.6 [facility] Comment on above: Performed By: #### L 100.0100, L500.4100, L500.4050, L501.9520 #### [facility] [address] [place], [address] Hematocrit (Bld) [Volume fraction] 46.0 % Normal 40-54 [facility] Comment on above: Performed By: #### L 100.0100, L500.4100, L500.4050, L501.9520 #### [facility] [address] [place], [address] Hemoglobin (Bld) [Mass/Vol] 15.2 g/dL Normal 13.0-16.5 [facility] Comment on above: Performed By: #### L 100.0100, L500.4100, L500.4050, L501.9520 #### [facility] [address] [place], [address] IG% 0.200 Normal 0.0-0.9 [facility] Comment on above: Result Comment: IG% - Immature Granulocytes (promyelocytes, myelocytes and metamyelocytes) > 1% indicates that a LEFT SHIFT is Present. Performed By: #### L 100.0100, L500.4100, L500.4050, L501.9520 #### [facility] [address] [place], [address] Lymphocytes/100 WBC (Bld) 20.8 % Normal 19-41 [facility] Comment on above: Performed By: #### L 100.0100, L500.4100, L500.4050, L501.9520 #### [facility] [address] [place], [address] MCH (RBC) [Entitic mass] 28.3 pg Normal 27.0-32.0 [facility] Comment on above: Performed By: #### L 100.0100, L500.4100, L500.4050, L501.9520 #### [facility] [address] [place], [address] MCHC (RBC) [Mass/Vol] 33.0 g/dL Normal 32-36 [facility] Comment on above: Performed By: #### L 100.0100, L500.4100, L500.4050, L501.9520 #### [facility] [address] [place], [address] MCV (RBC) [Entitic vol] 85.5 fL Normal 80-94 [facility] Comment on above: Performed By: #### L 100.0100, L500.4100, L500.4050, L501.9520 #### [facility] [address] [place], [address] Monocytes/100 WBC (Bld) 7.6 % Normal 0-10 [facility] Comment on above: Performed By: #### L 100.0100, L500.4100, L500.4050, L501.9520 #### [facility] [address] [place], [address] Neutrophils/100 WBC (Bld) 69.5 % Normal 47-70 [facility] Comment on above: Performed By: #### L 100.0100, L500.4100, L500.4050, L501.9520 #### [facility] [address] [place], [address] Nucleated RBC (Bld) [#/Vol] 0 10*3/uL Normal 0-5 [facility] Comment on above: Performed By: #### L 100.0100, L500.4100, L500.4050, L501.9520 #### [facility] [address] [place], [address] Platelet mean volume (Bld) [Entitic vol] 10.8 fL Normal 6.2-12.0 [facility] Comment on above: Performed By: #### L 100.0100, L500.4100, L500.4050, L501.9520 #### [facility] [address] [place], [address] Platelets (Bld) [#/Vol] 211 10*3/uL Normal 150-450 [facility] Comment on above: Performed By: #### L 100.0100, L500.4100, L500.4050, L501.9520 #### [facility] [address] [place], [address] RBC (Bld) [#/Vol] 5.38 10*6/uL Normal 4.6-6.2 [facility] Comment on above: Performed By: #### L 100.0100, L500.4100, L500.4050, L501.9520 #### [facility] [address] [place], [address] RDW SD 38.5 fl Normal 35.1-43.9 [facility] Comment on above: Performed By: #### L 100.0100, L500.4100, L500.4050, L501.9520 #### [facility] [address] [place], [address] WBC (Bld) [#/Vol] 5.8 10*3/uL Normal 4.4-11.0 [facility] Comment on above: Performed By: #### L 100.0100, L500.4100, L500.4050, L501.9520 #### [facility] [address] [place], [address] Comprehensive Metabolic [facility] 12-04-2023 Albumin [Mass/Vol] 3.8 g/dL Normal 3.2-5.0 [facility] Comment on above: Performed By: #### L 100.0100, L500.4100, L500.4050, L501.9520 #### [facility] [address] [place], [address] Albumin/Globulin [Mass ratio] 1.2 {ratio} Normal 0.9-2.4 [facility] Comment on above: Performed By: #### L 100.0100, L500.4100, L500.4050, L501.9520 #### [facility] [address] [place], [address] ALK P 108 U/L Normal 45-117 [facility] Comment on above: Performed By: #### L 100.0100, L500.4100, L500.4050, L501.9520 #### [facility] [address] [place], [address] ALT [Catalytic activity/Vol] 24 U/L Normal 16-61 [facility] Comment on above: Performed By: #### L 100.0100, L500.4100, L500.4050, L501.9520 #### [facility] [address] [place], [address] AST [Catalytic activity/Vol] 22 U/L Normal 15-37 [facility] Comment on above: Performed By: #### L 100.0100, L500.4100, L500.4050, L501.9520 #### [facility] [address] [place], [address] Bilirubin [Mass/Vol] 0.90 mg/dL Normal 0.20-1.00 [facility] Comment on above: Result Comment: For patients on eltrombopag therapy, use of Dimension [place] TBIL is not recommended. Performed By: #### L 100.0100, L500.4100, L500.4050, L501.9520 #### [facility] [address] [place], [address] BUN/CRE 11.3 RATIO Normal 10-20 [facility] Comment on above: Performed By: #### L 100.0100, L500.4100, L500.4050, L501.9520 #### [facility] [address] [place], [address] CA,Total 9.2 mg/dL Normal 8.5-10.1 [facility] Comment on above: Performed By: #### L 100.0100, L500.4100, L500.4050, L501.9520 #### [facility] [address] [place], [address] Chloride [Moles/Vol] 110 mmol/L High 98-107 [facility] Comment on above: Performed By: #### L 100.0100, L500.4100, L500.4050, L501.9520 #### [facility] [address] [place], [address] CO2 [Moles/Vol] 25.0 mmol/L Normal 21.0-32.0 [facility] Comment on above: Performed By: #### L 100.0100, L500.4100, L500.4050, L501.9520 #### [facility] [address] [place], [address] Creatinine [Mass/Vol] 1.06 mg/dL Normal 0.70-1.30 [facility] Comment on above: Result Comment: The validity of the calculated GFR GFRAA in patients over 70 years has not been determined. Clinical correlation is essential. Performed By: #### L 100.0100, L500.4100, L500.4050, L501.9520 #### [facility] [address] [place], [address] EST GFR - AA 95 mL/min Normal >60 [facility] Comment on above: Result Comment: Afri can Mont[place]ian GFR Calc Performed By: #### L 100.0100, L500.4100, L500.4050, L501.9520 #### [facility] [address] [place], [address] GAP 6 Normal 5-15 [facility] Comment on above: Performed By: #### L 100.0100, L500.4100, L500.4050, L501.9520 #### [facility] [address] [place], [address] GFR/1.73 sq M.predicted among non-blacks MDRD (S/P/Bld) [Vol rate/Area] 79 mL/min/{1.73_m2} Normal >60 [facility] Comment on above: Result Comment: Non- GFR Calc Performed By: #### L 100.0100, L500.4100, L500.4050, L501.9520 #### [facility] [address] [place], [address] Globulin (S) [Mass/Vol] 3.1 g/dL Normal 2.2-4.2 [facility] Comment on above: Performed By: #### L 100.0100, L500.4100, L500.4050, L501.9520 #### [facility] [address] [place], [address] Glucose [Mass/Vol] 88 mg/dL Normal 74-106 [facility] Comment on above: Performed By: #### L 100.0100, L500.4100, L500.4050, L501.9520 #### [facility] [address] [place], [address] Potassium [Moles/Vol] 4.4 mmol/L Normal 3.5-5.1 [facility] Comment on above: Performed By: #### L 100.0100, L500.4100, L500.4050, L501.9520 #### [facility] [address] [place], [address] Sodium [Moles/Vol] 141 mmol/L Normal 136-145 [facility] Comment on above: Performed By: #### L 100.0100, L500.4100, L500.4050, L501.9520 #### [facility] [address] [place], [address] T PROT 6.9 g/dL Normal 6.4-8.2 [facility] Comment on above: Performed By: #### L 100.0100, L500.4100, L500.4050, L501.9520 #### [facility] [address] [place], [address] Urea nitrogen [Mass/Vol] 12 mg/dL Normal 7-18 [facility] Comment on above: Performed By: #### L 100.0100, L500.4100, L500.4050, L501.9520 #### [facility] [address] [place], [address] Knee 1 or 2 Viewson 12-04-19 Knee 1 or 2 Views [facility] Imaging Services [address] [place] [address] Knee 1 or 2 Views MR#: [id number] Acct: [id number] Name: BECK FRAGA Rep #: [id number] : 1975 M 48 From: Linda Fraga MD PCP: Dr. Nguyễn Stark MD Status: REG CLI Study: Knee 1 or 2 Views Date of Exam: 12/04/23 Exam# [id number] Ordering Dr: Nguyễn Stark MD [id number] STUDY: X-RAY - LEFT KNEE REASON FOR EXAM: Male, 48 years old. PAIN TECHNIQUE: 2 views of the left knee. COMPARISON: None. FINDINGS: Normal visualized distal femur. Normal visualized proximal tibia and fibula. Normal proximal tibiofibular articulation. There is no demonstrated fracture. Normal medial femorotibial compartment. Normal lateral femorotibial compartment. Normal patellofemoral articulation. There is a tiny joint effusion. The soft tissue structures are unremarkable. RAD/Knee 1 or 2 Views IMPRESSION: Tiny left knee joint effusion. No demonstrated fracture. Electronically Signed: Linda Fraga MD at 11:27 EDT , CC: Dr. Nguyễn Stark MD Conduit Reamer Operator: Signed Normal [facility] Lipid Profileon 12-04-2023 Cholesterol [Mass/Vol] 121 mg/dL Normal 200 [facility] Comment on above: Result Comment: <200 mg/dL Desirable 200-240 mg/dL Borderline >240 mg/dL High Risk Performed By: #### L 100.0100, L500.4100, L500.4050, L501.9520 #### [facility] [address] [place], [address] Cholesterol in HDL [Mass/Vol] 40 mg/dL Normal [facility] Comment on above: Result Comment: The drugs N-Acetylcysteine and Metamizole may falsely depress this assay. Reference Range HDL <40 mg/dL Low HDL Cholesterol HDL >or= 60 mg/dL High HDL Cholesterol Performed By: #### L 100.0100, L500.4100, L500.4050, L501.9520 #### [facility] [address] [place], [address] Cholesterol in LDL [Mass/Vol] 63 mg/dL Normal 0-130 [facility] Comment on above: Performed By: #### L 100.0100, L500.4100, L500.4050, L501.9520 #### [facility] [address] [place], [address] Cholesterol in VLDL [Mass/Vol] 18 mg/dL Normal 5-40 [facility] Comment on above: Performed By: #### L 100.0100, L500.4100, L500.4050, L501.9520 #### [facility] [address] [place], [address] Triglyceride [Mass/Vol] 90 mg/dL Normal [facility] Comment on above: Result Comment: The drugs N-Acetylcysteine and Metamizole may falsely depress this assay. Serum Triglycerides Reference Interval Normal <150 mg/dL Borderline high 150 - 199 mg/dL High 200 - 499 mg/dL Very High > or = 500 mg/dL Performed By: #### L 100.0100, L500.4100, L500.4050, L501.9520 #### [facility] [address] [place], [place], [id number] Thyroid Stim Hormone (TSH)on 12-04-2023 TSH 2.880 uIU/mL Normal 0.358-3.74 0 [facility] Comment on above: Performed By: #### L 100.0100, L500.4100, L500.4050, L501.9520 ####[facility] [id number] [place], [place], [address] [facility] Telephone ([facility]) BECK FRAGA ([id number]) 1975 M Date Time Provider Department 09/25/23 HARJIT THORPE [facility] During your visit today, we recorded the following information about you: Miguel Dela Cruz RN 09/25/2023 9:[address] Thorpe met with Beck Fraga 08/20/2023 and is recommending follow up visit in a year with Keely Eubanks APRN, ACNS and CTA (chest abdomen and pelvis. Orders placed and verified recall letter created. Miguel Dela Cruz RN Allergies As of Date: 09/25/2023 Noted Allergy Reaction CITALOPRAM 04/23/2016 14 - Other: See Comments PERCOCET (OXYCODONE-ACETAMINOPHEN) 12 - Shortness of Breath Date Reviewed: 08/20/2023 Reviewed by: Loretta Collins MA - Fully Assessed Reason for Visit: Follow Up [171] Primary Visit Diagnosis:Dissection of thoracoabdominal aorta (HCC) [I71.03] Other Visit Diagnoses:Disorder of artery or arteriole (HCC) [I77.9] Abdominal aortic aneurysm (AAA), unspecified part, unspecified whether ruptured (HCC) [I71.40] Order(s):CTA CHEST (NONGATED) WO/W IVCON [[id number]] Order #: [id number] FUTURE CTA ABD/PEL WO/W IVCON [[id number]] Order #: [id number] FUTURE Prescriptions as of 09/25/2023 - omeprazole (PRILOSEC) 20 mg capsule take 1 capsule by mouth once daily. - metoprolol tartrate, short acting, (LOPRESSOR) 25 mg tablet TAKE ONE-HALF (ONE-HALF) OF A TABLET BY MOUTH TWICE DAILY - atorvastatin (LIPITOR) 40 mg tablet Take 40 mg by mouth once daily. - citalopram hydrobromide (CELEXA) 10 mg tablet Take 10 mg by mouth once daily. - Amoxicillin 500 mg tablet Take 500 mg by mouth as needed. Before dental procedures - Multivitamin capsule Take 1 capsule by mouth once daily. - clopidogrel (PLAVIX) 75 mg tablet Take 75 mg by mouth once daily. - aspirin 81 mg chewable tablet Take 81 mg by mouth once daily. 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 06/04/2018 Chronic thoracic aortic dissection (HCC) [I71.0*06/04/2018 Hypoxia [R09.02] 06/04/2018 06/10/2018 Postoperative hypertension [I97.3] 06/04/2018 06/05/2018 Stress hyperglycemia [R73.9] 06/04/2018 06/10/2018 Pain, postoperative, acute [G89.18] 06/04/2018 Postoperative hypovolemia [E89.89, E86.1] 06/04/2018 06/05/2018 Postoperative hypotension [I95.81] 06/05/2018 06/08/2018 Fluid overload [E87.70] 06/07/2018 Postoperative hypertension [I97.3] 06/08/2018 Postoperative atrial fibrillation (HCC) [I97.89*06/09/2018 Transition of care performed with sharing of cl*06/10/2018 History of CVA (cerebrovascular accident) [Z86.*06/10/2018 Obesity, Class I, BMI 30-34.9 [E66.9] 04/23/2021 Aortic dissection (HCC) [I71.00] 07/02/2022 Hypovolemia [E86.1] 07/02/2022 07/04/2022 Spinal headache [G97.1] 07/02/2022 Atelectasis [J98.11] 07/03/2022 Encounter for support and coordination of trans*07/04/2022 Encounter Status:Closed by MIGUEL DELA CRUZ on 09/25/23 Normal [facility] CTA Abdominal vessels and Pe lvis vessels WO and W contrast Gisele 08-20-2023 * * *Final Report* * * DATE OF EXAM: Aug 20 2023 1:01PM JQC 0467 - CTA ABD/PELV WO/W IVCON / PROCEDURE REASON: multiple diagnoses * * * * Physician Interpretation * * * * CTA Aorta chest, abdomen and pelvis Direct Image Comparison: 09/20/2022 HISTORY: 47 years old Male with h/o repaired type-A dissection --?2014, S/P?aortic valve?replacement?(bioprost hetic) &?ascending aortic dissection repair (supracoronary graft). ? --?progressively enlarging aortic root aneurysm followed by:? - 06/04/2018: Redo median sternotomy, aortic root replacement with reimplantation of the coronary ?arteries and aortic valve with a 27-mm Inspiris bioprosthetic valve and 30 mm ?Valsalva graft, ascending and total arch replacement with a 28 mm Dacron graft and ?direct placement of a 28 mm x 10 cm Relay thoracic stent graft, on-table ?fenestration and stent grafting of the left subclavian artery with a 13 mm x 2.5 cm ?Viabahn covered stent, stent graft in the left common carotid artery with a 10 mm x ?2.5 cm covered stent, dissection of the left common carotid artery and dissection of ?the left subclavian artery, repair of dissected left subclavian and left common ?carotid arteries. - 07/01/2022: TEVAR from zone 3 to 5 (32mm x 209mm RELAY PRO) + Cook Zenith NIRAV from zone 5 to 9 (36mm x 180mm) + LSCA stent (VBX 11x39) + LCCA stents (ABSOLUTE 4x40 + VBX ?8x59) + False lumen embolization and endoleak repair with 2 aortic Amplatzer plugs ?at zone 3 ( 12 and 20 mm). Evaluation for interval change. There is request to define thoracic and aortic anatomy TECHNIQUE: SCANNER: Multi-detector scanner PROTOCOL: 3-phase, non-gated spiral imaging with thin slice reconstruction was performed prior and following (arterial and venous phase) intravenous administration of contrast material Scan Range: thoracic inlet through the ischial tuberosities CT Dose-Length Product (DLP): 572 mGy*cm CT Dose Reduction Employed: Automated exposure control(AEC) and iterative recon CONTRAST: IV administration of 80 ml Omnipaque 350 Scan acquisition: uncomplicated Macro Version: [id number]:CCTW_3 For optimization of anatomic evaluation, advanced 3-D off-line postprocessing was performed on a dedicated workstation by the interpreting physician. STUDY LIMITATIONS: None. RESULT: LINES, TUBES and DEVICES: None CHEST: Chest wall anatomy: evidence of median sternotomy with sternal wires in place. LUNGS: unremarkable. MEDIASTINUM: unremarkable. PERICARDIUM: unremarkable CENTRAL PULMONARY ARTERY: normal dimensions. Assessment is limited due to limited contrast enhancement. CARDIAC CHAMBERS: LEFT VENTRICLE: normal size. RIGHT VENTRICLE: normal size Left atrium: normal size. KALIE: normal Right atrium: normal size CENTRAL VENOUS and PULMONARY VENOUS RETURN: normal. Coronary Sinus: normal size MITRAL and TRICUSPID VALVE: assessment is limited in the current study - no leaflet calcification. No annular calcification PULMONIC VALVE: assessment is limited in the current study. No leaflet calcification CORONARY ANATOMY: normal origin of the coronary arteries. No definitive evidence of calcified atherosclerotic changes of the coronary arteries. However, the current study is not optimized for coronary assessment. AORTIC VALVE: AVR with bioprosthetic valve. No leaflet calcification. AORTA: Size: Normal size thoracic and abdominal aorta. 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 Intervention: Extensive hybrid (surgical and endovascular) repair. Status post plug devices in the aortic arch. Complications: No residual endoleak. Extent: right common iliac artery STJ: surgical anastomosis. Wall Changes: Arch Branch Vessels: - Innominate Artery: no dissection. - Right Subclavian Artery: no dissection. - proximal Right Carotid Artery: no dissection. - proximal Left Carotid Artery: Patent stent - Left Subclavian Artery: dissection extending into the proximal segment. Patent stent - proximal Vertebral Arteries: dissection involving the ostium of the left. Visceral Branch Vessels: - Celiac Artery: no dissection. - SMA: no dissection. - Right Renal Artery: no dissection. Originates from false lumen. - Left Renal Artery: no dissection. - ANNE: no dissection. Iliac Arteries: dissection involving the ostium of the right KAILEE. AORTIC DIMENSIONS: AORTIC ROOT: 3.7 cm measured [id number] mid DESCENDING THORACIC AORTA: 4.2 cm JUXTARENAL ABDOMINAL AORTA (level of SMA): 2.6 cm mid INFRARENAL ABDOMINAL AORTA: 2.8 cm ABDOMEN Gallbladder: unremarkable Liver: small cystic lesions, unchanged Spleen: unremarkable Adrenal glands: unremarkable Pancreas: unremarkable Kidneys: unremarkable Bowel: colonic diverticuli PELVIS: scattered phleboliths Bladder: unremarkable. BONES: Unremarkable Gyroscopic Engineering Technician (topogram) images: No additional findings. DIVISION OF RADIOLOGY Provider, [facility] - 08/20/2023 * * *Final Report* * * DATE OF EXAM: Aug 20 2023 1:01PM JQC 0467 - CTA ABD/PELV WO/W IVCON / PROCEDURE REASON: multiple diagnoses * * * * Physician Interpretation * * * * CTA Aorta chest, abdomen and pelvis Direct Image Comparison: 09/20/2022 HISTORY: 47 years old Male with h/o repaired type-A dissection --?2014, S/P?aortic valve?replacement?(bioprost hetic) &?ascending aortic dissection repair (supracoronary graft). ? --?progressively enlarging aortic root aneurysm followed by:? - 06/04/2018: Redo median sternotomy, aortic root replacement with reimplantation of the coronary ?arteries and aortic valve with a 27-mm Inspiris bioprosthetic valve and 30 mm ?Valsalva graft, ascending and total arch replacement with a 28 mm Dacron graft and ?direct placement of a 28 mm x 10 cm Relay thoracic stent graft, on-table ?fenestration and stent grafting of the left subclavian artery with a 13 mm x 2.5 cm ?Viabahn covered stent, stent graft in the left common carotid artery with a 10 mm x ?2.5 cm covered stent, dissection of the left common carotid artery and dissection of ?the left subclavian artery, repair of dissected left subclavian and left common ?carotid arteries. - 07/01/2022: TEVAR from zone 3 to 5 (32mm x 209mm RELAY PRO) + Cook Zenith NIRAV from zone 5 to 9 (36mm x 180mm) + LSCA stent (VBX 11x39) + LCCA stents (ABSOLUTE 4x40 + VBX ?8x59) + False lumen embolization and endoleak repair with 2 aortic Amplatzer plugs ?at zone 3 ( 12 and 20 mm). Evaluation for interval change. There is request to define thoracic and aortic anatomy TECHNIQUE: SCANNER: Multi-detector scanner PROTOCOL: 3-phase, non-gated spiral imaging with thin slice reconstruction was performed prior and following (arterial and venous phase) intravenous administration of contrast material Scan Range: thoracic inlet through the ischial tuberosities CT Dose-Length Product (DLP): 572 mGy*cm CT Dose Reduction Employed: Automated exposure control(AEC) and iterative recon CONTRAST: IV administration of 80 ml Omnipaque 350 Scan acquisition: uncomplicated Macro Version: [id number]:CCTW_[id number] For optimization of anatomic evaluation, advanced 3-D off-line postprocessing was performed on a dedicated workstation by the interpreting physician. STUDY LIMITATIONS: None. RESULT: LINES, TUBES and DEVICES: None CHEST: Chest wall anatomy: evidence of median sternotomy with sternal wires in place. LUNGS: unremarkable. MEDIASTINUM: unremarkable. PERICARDIUM: unremarkable CENTRAL PULMONARY ARTERY: normal dimensions. Assessment is limited due to limited contrast enhancement. CARDIAC CHAMBERS: LEFT VENTRICLE: normal size. RIGHT VENTRICLE: normal size Left atrium: normal size. KALIE: normal Right atrium: normal size CENTRAL VENOUS and PULMONARY VENOUS RETURN: normal. Coronary Sinus: normal size MITRAL and TRICUSPID VALVE: assessment is limited in the current study - no leaflet calcification. No annular calcification PULMONIC VALVE: assessment is limited in the current study. No leaflet calcification CORONARY ANATOMY: normal origin of the coronary arteries. No definitive evidence of calcified atherosclerotic changes of the coronary arteries. However, the current study is not optimized for coronary assessment. AORTIC VALVE: AVR with bioprosthetic valve. No leaflet calcification. AORTA: Size: Normal size thoracic and abdominal aorta. 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 Intervention: Extensive hybrid (surgical and endovascular) repair. Status post plug devices in the aortic arch. Complications: No residual endoleak. Extent: right common iliac artery STJ: surgical anastomosis. Wall Changes: Arch Branch Vessels: - Innominate Artery: no dissection. - Right Subclavian Artery: no dissection. - proximal Right Carotid Artery: no dissection. - proximal Left Carotid Artery: Patent stent - Left Subclavian Artery: dissection extending into the proximal segment. Patent stent - proximal Vertebral Arteries: dissection involving the ostium of the left. Visceral Branch Vessels: - Celiac Artery: no dissection. - SMA: no dissection. - Right Renal Artery: no dissection. Originates from false lumen. - Left Renal Artery: no dissection. - ANNE: no dissection. Iliac Arteries: dissection involving the ostium of the right KAILEE. AORTIC DIMENSIONS: AORTIC ROOT: 3.7 cm measured tyjni-zb-yehyb mid DESCENDING THORACIC AORTA: 4.2 cm JUXTARENAL ABDOMINAL AORTA (level of SMA): 2.6 cm mid INFRARENAL ABDOMINAL AORTA: 2.8 cm ABDOMEN Gallbladder: unremarkable Liver: small cystic lesions, unchanged Spleen: unremarkable Adrenal glands: unremarkable Pancreas: unremarkable Kidneys: unremarkable Bowel: colonic diverticuli PELVIS: scattered phleboliths Bladder: unremarkable. BONE (more content not included)... 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 ? --?progressively enlarging aortic root aneurysm followed by:? - 06/04/2018: Redo median sternotomy, aortic root replacement with reimplantation of the coronary ?arteries and aortic valve with a 27-mm Inspiris bioprosthetic valve and 30 mm ?Valsalva graft, ascending and total arch replacement with a 28 mm Dacron graft and ?direct placement of a 28 mm x 10 cm Relay thoracic stent graft, on-table ?fenestration and stent grafting of the left subclavian artery with a 13 mm x 2.5 cm ?Viabahn covered stent, stent graft in the left common carotid artery with a 10 mm x ?2.5 cm covered stent, dissection of the left common carotid artery and dissection of ?the left subclavian artery, repair of dissected left subclavian and left common ?carotid arteries. - 07/01/2022: TEVAR from zone 3 to 5 (32mm x 209mm RELAY PRO) + Cook Zenith NIRAV from zone 5 to 9 (36mm x 180mm) + LSCA stent (VBX 11x39) + LCCA stents (ABSOLUTE 4x40 + VBX ?8x59) + False lumen embolization and endoleak repair with 2 aortic Amplatzer plugs ?at zone 3 ( 12 and 20 mm). Evaluation for interval change. There is request to define thoracic and aortic anatomy TECHNIQUE: SCANNER: Multi-detector scanner PROTOCOL: 3-phase, non-gated spiral imaging with thin slice reconstruction was performed prior and following (arterial and venous phase) intravenous administration of contrast material Scan Range: thoracic inlet through the ischial tuberosities CT Dose-Length Product (DLP): 572 mGy*cm CT Dose Reduction Employed: Automated exposure control(AEC) and iterative recon CONTRAST: IV administration of 80 ml Omnipaque 350 Scan acquisition: uncomplicated Macro Version: [id number]:CCTW_[id number] For optimization of anatomic evaluation, advanced 3-D off-line postprocessing was performed on a dedicated workstation by the interpreting physician. STUDY LIMITATIONS: None. RESULT: LINES, TUBES and DEVICES: None CHEST: Chest wall anatomy: evidence of median sternotomy with sternal wires in place. LUNGS: unremarkable. MEDIASTINUM: unremarkable. PERICARDIUM: unremarkable CENTRAL PULMONARY ARTERY: normal dimensions. Assessment is limited due to limited contrast enhancement. CARDIAC CHAMBERS: LEFT VENTRICLE: normal size. RIGHT VENTRICLE: normal size Left atrium: normal size. KALIE: normal Right atrium: normal size CENTRAL VENOUS and PULMONARY VENOUS RETURN: normal. Coronary Sinus: normal size MITRAL and TRICUSPID VALVE: assessment is limited in the current study - no leaflet calcification. No annular calcification PULMONIC VALVE: assessment is limited in the current study. No leaflet calcification CORONARY ANATOMY: normal origin of the coronary arteries. No definitive evidence of calcified atherosclerotic changes of the coronary arteries. However, the current study is not optimized for coronary assessment. AORTIC VALVE: AVR with bioprosthetic valve. No leaflet calcification. AORTA: Size: Normal size thoracic and abdominal aorta. 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 Intervention: Extensive hybrid (surgical and endovascular) repair. Status post plug devices in the aortic arch. Complications: No residual endoleak. Extent: right common iliac artery STJ: surgical anastomosis. Wall Changes: Arch Branch Vessels: - Innominate Artery: no dissection. - Right Subclavian Artery: no dissection. - proximal Right Carotid Artery: no dissection. - proximal Left Carotid Artery: Patent stent - Left Subclavian Artery: dissection extending into the proximal segment. Patent stent - proximal Vertebral Arteries: dissection involving the ostium of the left. Visceral Branch Vessels: - Celiac Artery: no dissection. - SMA: no dissection. - Right Renal Artery: no dissection. Originates from false lumen. - Left Renal Artery: no dissection. - ANNE: no dissection. Iliac Arteries: dissection involving the ostium of the right KAILEE. AORTIC DIMENSIONS: AORTIC ROOT: 3.7 cm measured [id number]-lc-jibjw mid DESCENDING THORACIC AORTA: 4.2 cm JUXTARENAL ABDOMINAL AORTA (level of SMA): 2.6 cm mid INFRARENAL ABDOMINAL AORTA: 2.8 cm ABDOMEN Gallbladder: unremarkable Liver: small cystic lesions, unchanged Spleen: unremarkable Adrenal glands: unremarkable Pancreas: unremarkable Kidneys: unremarkable Bowel: colonic diverticuli PELVIS: scattered phleboliths Bladder: unremarkable. BONES: Unremarkable Gyroscopic Engineering Technician (topogram) images: No add (more content not included)... 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 ? --?progressively enlarging aortic root aneurysm followed by:? - 06/04/2018: Redo median sternotomy, aortic root replacement with reimplantation of the coronary ?arteries and aortic valve with a 27-mm Inspiris bioprosthetic valve and 30 mm ?Valsalva graft, ascending and total arch replacement with a 28 mm Dacron graft and ?direct placement of a 28 mm x 10 cm Relay thoracic stent graft, on-table ?fenestration and stent grafting of the left subclavian artery with a 13 mm x 2.5 cm ?Viabahn covered stent, stent graft in the left common carotid artery with a 10 mm x ?2.5 cm covered stent, dissection of the left common carotid artery and dissection of ?the left subclavian artery, repair of dissected left subclavian and left common ?carotid arteries. - 07/01/2022: TEVAR from zone 3 to 5 (32mm x 209mm RELAY PRO) + Cook Zenith NIRAV from zone 5 to 9 (36mm x 180mm) + LSCA stent (VBX 11x39) + LCCA stents (ABSOLUTE 4x40 + VBX ?8x59) + False lumen embolization and endoleak repair with 2 aortic Amplatzer plugs ?at zone 3 ( 12 and 20 mm). Evaluation for interval change. There is request to define thoracic and aortic anatomy TECHNIQUE: SCANNER: Multi-detector scanner PROTOCOL: 3-phase, non-gated spiral imaging with thin slice reconstruction was performed prior and following (arterial and venous phase) intravenous administration of contrast material Scan Range: thoracic inlet through the ischial tuberosities CT Dose-Length Product (DLP): 572 mGy*cm CT Dose Reduction Employed: Automated exposure control(AEC) and iterative recon CONTRAST: IV administration of 80 ml Omnipaque 350 Scan acquisition: uncomplicated Macro Version: [id number]:CCTW_[id number] For optimization of anatomic evaluation, advanced 3-D off-line postprocessing was performed on a dedicated workstation by the interpreting physician. STUDY LIMITATIONS: None. RESULT: LINES, TUBES and DEVICES: None CHEST: Chest wall anatomy: evidence of median sternotomy with sternal wires in place. LUNGS: unremarkable. MEDIASTINUM: unremarkable. PERICARDIUM: unremarkable CENTRAL PULMONARY ARTERY: normal dimensions. Assessment is limited due to limited contrast enhancement. CARDIAC CHAMBERS: LEFT VENTRICLE: normal size. RIGHT VENTRICLE: normal size Left atrium: normal size. KALIE: normal Right atrium: normal size CENTRAL VENOUS and PULMONARY VENOUS RETURN: normal. Coronary Sinus: normal size MITRAL and TRICUSPID VALVE: assessment is limited in the current study - no leaflet calcification. No annular calcification PULMONIC VALVE: assessment is limited in the current study. No leaflet calcification CORONARY ANATOMY: normal origin of the coronary arteries. No definitive evidence of calcified atherosclerotic changes of the coronary arteries. However, the current study is not optimized for coronary assessment. AORTIC VALVE: AVR with bioprosthetic valve. No leaflet calcification. AORTA: Size: Normal size thoracic and abdominal aorta. 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 Intervention: Extensive hybrid (surgical and endovascular) repair. Status post plug devices in the aortic arch. Complications: No residual endoleak. Extent: right common iliac artery STJ: surgical anastomosis. Wall Changes: Arch Branch Vessels: - Innominate Artery: no dissection. - Right Subclavian Artery: no dissection. - proximal Right Carotid Artery: no dissection. - proximal Left Carotid Artery: Patent stent - Left Subclavian Artery: dissection extending into the proximal segment. Patent stent - proximal Vertebral Arteries: dissection involving the ostium of the left. Visceral Branch Vessels: - Celiac Artery: no dissection. - SMA: no dissection. - Right Renal Artery: no dissection. Originates from false lumen. - Left Renal Artery: no dissection. - ANNE: no dissection. Iliac Arteries: dissection involving the ostium of the right KAILEE. AORTIC DIMENSIONS: AORTIC ROOT: 3.7 cm measured qiesm-pn-oumvw mid DESCENDING THORACIC AORTA: 4.2 cm JUXTARENAL ABDOMINAL AORTA (level of SMA): 2.6 cm mid INFRARENAL ABDOMINAL AORTA: 2.8 cm ABDOMEN Gallbladder: unremarkable Liver: small cystic lesions, unchanged Spleen: unremarkable Adrenal glands: unremarkable Pancreas: unremarkable Kidneys: unremarkable Bowel: colonic diverticuli PELVIS: scattered phleboliths Blad (more content not included)... [facility] No Panel Informationon 08-19 IMPRESSION: Type A aortic dissection status post extensive repair with aortic valve replacement, ascending aortic graft, frozen elephant trunk and endovascular stenting of the thoracoabdominal aorta to the aortic bifurcation. Patent stents in the left carotid and left without arteries. Status post plug closure of arch endoleak without residual flow. Residual dissection in the thoracoabdominal aorta ending in the right common iliac artery. Conduit Reamer Operator: PSCB Transcribe Date/Time: Aug 20 2023 1:10P Dictated by : NILS ENGLE MD This examination was interpreted and the report reviewed and electronically signed by: NILS ENGLE MD on Aug 20 2023 2:15PM [facility] DIVISION OF RADIOLOGY Radiology Study observation (narrative) [facility] No Panel InformationOrdered By: [facility] Provider on 08-20-2023 [facility] Absolute lymphocyte countOrd ered By: Nguyễn Stark on 06-03-2023 Lymphocytes Auto (Unsp spec) [#/Vol] 1.18 10*3/uL 0.83-4.51 [facility] Automated lymphocyte count a s percentage of total leukocytesOrdered By: Nguyễn Stark on 06-03-2023 Lymphocytes/100 WBC Auto (Unsp spec) 19.9 % 19-41 [facility] Basophil percentageOrdered B y: Nguyễn Stark on 06-03-2023 Basophils/100 WBC (Bld) 0.5 % 0-1 [facility] Bilirubin [Mass/Vol] 0.70 mg/dL 0.20-1.00 [facility] Comment on above: For patients on eltr ombopag therapy, use of Dimension [place] TBIL is not recommended. Chloride [Moles/Vol] 110 mmol/L 98-107 [facility] Cholesterol [Mass/Vol] 122 mg/dL <200 [facility] Comment on above: <200 mg/dL Desirable 200-240 mg/dL Borderline >240 mg/dL High Risk Eosinophils/100 WBC (Bld) 0.7 % 0-5 [facility] Glucose [Mass/Vol] 93 mg/dL 74-106 [facility] Hemoglobin (Bld) [Mass/Vol] 15.2 g/dL 13.0-16.5 [facility] Monocytes/100 WBC (Bld) 8.1 % 0-10 [facility] Neutrophils (Bld) [#/Vol] 4.2 10*3/uL 2.0-7.7 [facility] Neutrophils/100 WBC (Bld) 70.5 % 47-70 [facility] Potassium [Moles/Vol] 4.1 mmol/L 3.5-5.1 [facility] Protein [Mass/Vol] 6.7 g/dL 6.4-8.2 [facility] Sodium [Moles/Vol] 141 mmol/L 136-145 [facility] Triglyceride [Mass/Vol] 168 mg/dL <199 [facility] Comment on above: The drugs N-Acetylcy steine and Metamizole may falsely depress this assay.Serum Triglycerides Reference Interval Normal <150 mg/dL Borderline high 150 - 199 mg/dL High 200 - 499 mg/dL Very High > or = 500 mg/dL WBC (Bld) [#/Vol] 5.9 10*3/uL 4.4-11.0 [facility] Determination of erythrocyte mean corpuscular volume (MCV)Ordered By: Nguyễn Stark on 06-03-2023 MCV (RBC) [Entitic vol] 83.9 fL 80-94 [facility] Erythrocyte distribution wid th ratioOrdered By: Nguyễn Stark on 06-03-2023 Erythrocyte distribution width (RBC) [Ratio] 12.5 % 11.6-14.6 [facility] Erythrocyte distribution wid th standard deviationOrdered By: Nguyễn Stark on 06-03-2023 Erythrocyte distribution width (RBC) [Entitic vol] 38.0 fL 35.1-43.9 [facility] Hematocrit Auto (Bld) [Volum e fraction]Ordered By: Nguyễn Stark on 06-03-2023 Hematocrit (Bld) [Volume fraction] 45.2 % 40-54 [facility] Immature granulocytes/100 WB C Auto (Bld)Ordered By: Nguyễn Stark on 02-20-2024 Immature granulocytes/100 WBC (Bld) 0.300 % 0.0-0.9 [facility] Comment on above: IG% - Immature Granu locytes (promyelocytes, myelocytes and metamyelocytes) > 1% indicates that a LEFT SHIFT is Present. Laboratory - Chemistry and C hemistry - challengeOrdered By: Nguyễn Stark on 06-03-2023 Albumin/Globulin [Mass ratio] 1.3 {ratio} 0.9-2.4 [facility] ALP [Catalytic activity/Vol] 101 U/L 45-117 [facility] ALT [Catalytic activity/Vol] 39 U/L 16-61 [facility] Cholesterol in HDL [Mass/Vol] 37 mg/dL >40 [facility] Comment on above: The drugs N-Acetylcy steine and Metamizole may falsely depress this assay. Reference Range HDL <40 mg/dL Low HDL Cholesterol HDL >or= 60 mg/dL High HDL Cholesterol Cholesterol in LDL [Mass/Vol] 51 mg/dL 0-130 [facility] CO2 [Moles/Vol] 27.0 mmol/L 21.0-32.0 [facility] Globulin (S) [Mass/Vol] 2.9 g/dL 2.2-4.2 [facility] Urea nitrogen/Creatinine [Mass ratio] 16.0 mg/mg 10-20 [facility] Laboratory - Hematology and Cell countsOrdered By: Nguyễn Stark on 06-03-2023 MCH (RBC) [Entitic mass] 28.2 pg 27.0-32.0 [facility] MCHC (RBC) [Mass/Vol] 33.6 g/dL 32-36 [facility] Nucleated RBC/100 WBC (Bld) [Ratio] 0 % 0-5 [facility] Platelet mean volume (Bld) [Entitic vol] 10.7 fL 6.2-12.0 [facility] Platelets (Bld) [#/Vol] 226 10*3/uL 150-450 [facility] No Panel InformationOrdered By: Nguyễn Stark on 06-03-2023 Estimated GFR (MDRD) Amer 96 mL/min >60 [facility] Comment on above: GFR Calc Estimated GFR (MDRD) Non-Af Amer 79 mL/min >60 [facility] Comment on above: Non- GFR Calc VLDL Cholesterol 34 mg/dL 5-40 [facility] RBC Auto (Bld) [#/Vol]Ordere d By: Nguyễn Stark on 06-03-2023 RBC (Bld) [#/Vol] 5.39 10*6/uL 4.6-6.2 [facility] Serum or plasma calcium sathish urement (mass/volume)Ordered By: Nguyễn Stark on 06-03-2023 Calcium [Mass/Vol] 8.7 mg/dL 8.5-10.1 [facility] Serum or plasma creatinine m easurement (mass/volume)Ordered By: Nguyễn Stark on 06-03-2023 Creatinine [Mass/Vol] 1.06 mg/dL 0.70-1.30 [facility] Comment on above: The validity of the calculated GFR & GFRAA in patients over 70 years has not been determined. Clinical correlation is essential. Serum or plasma thyroid stim ulating hormone (TSH) measurement (units/volume)Ordered By: Nguyễn Stark on 06-03-2023 TSH Qn 2.73 uIU/mL 0.358-3.74 [facility] Serum or plasma urea nitroge n measurement (mass/volume)Ordered By: Nguyễn Stark on 06-03-2023 Urea nitrogen [Mass/Vol] 17 mg/dL 7-18 [facility] Thin prep Papanicolaou smear with manual screeningOrdered By: Nguyễn Stark on 06-03-2023 Thin prep Papanicolaou smear with manual screening 3.8 g/dL 3.2-5.0 [facility] Thin prep Papanicolaou smear with manual screening 21 U/L 15-37 [facility] Thin prep Papanicolaou smear with manual screening 4 5-15 [facility] Laboratory - Microbiology an d Antimicrobial susceptibilityOrdered By: Nguyễn Stark on 04-25-2023 SARS-CoV-2 (COVID-19) RNA ENRRIQUE+probe Ql (Unsp spec) [facility] Laboratory - Microbiology an d Antimicrobial susceptibilityOrdered By: Nguyễn Stark on 04-23-2023 Bacteria identified Cx Nom (Bld) No growth in 5 days. [facility] Basic metabolic 2000 panelon 04-20-2023 Anion gap [Moles/Vol] 6 mmol/L Normal 5-[address] [facility] Comment on above: Order Comment: Speci men Type: BLOOD SPECIMEN Ordering Facility: [facility] Address: [address] [place] [address] Performed By: #### 2 4321-2 #### [facility] CLIA [id number] [address] [place] [address] [place] Calcium [Mass/Vol] 10.0 mg/dL Normal 8.5-10.5 [facility] Comment on above: Order Comment: Speci men Type: BLOOD SPECIMEN Ordering Facility: [facility] Address: [address] [place] [address] Performed By: #### 2 4321-2 #### [facility] CLIA [id number] [address] [place] [address] [place] Chloride [Moles/Vol] 107 mmol/L Normal 98-107 [facility] Comment on above: Order Comment: Speci men Type: BLOOD SPECIMEN Ordering Facility: [facility] Address: [address] [place] [address] Performed By: #### 2 4321-2 #### [facility] CLIA [id number] [address] [place] [address] [place] CO2 [Moles/Vol] 28 mmol/L Normal 21-32 [facility] Comment on above: Order Comment: Speci men Type: BLOOD SPECIMEN Ordering Facility: [facility] Address: [address] [place] [address] Performed By: #### 2 4321-2 #### [facility] CLIA [id number] [address] [place] [address] [place] Creatinine [Mass/Vol] 1.15 mg/dL Normal 0.50-1.[address] [facility] Comment on above: Order Comment: Speci men Type: BLOOD SPECIMEN Ordering Facility: [facility] Address: [address] [place] [address] Result Comment: Kassie ents receiving either N-Acetylcysteine (NAC) or Metamizole prior to venipuncture, may have falsely depressed results. Performed By: #### 2 4321-2 #### [facility] CLIA [id number] [address] [place] [address] [place] Creatinine and Glomerular filtration rate.predicted panel (S/P/Bld) 79 mL/min/1.73m??? Normal >=60 [facility] Comment on above: Order Comment: Arnav perez Type: BLOOD SPECIMEN Ordering Facility: [facility] Address: [address] [place] [address] Result Comment: Tonia mated Glomerular Filtration Rate (eGFR) is calculated using the 2020 CKD-EPI creatinine equation. This equation utilizes serum creatinine, sex, and age as parameters. The creatinine assay has traceable calibration to isotope dilution-mass spectrometry. Refer to KDIGO guidelines for clinical interpretation. In patients with unstable renal function, e.g. those with acute kidney injury, the eGFR may not accurately reflect actual GFR. Performed By: #### 2 4321-2 #### [facility] CLIA [id number] [address] [place] [address] [place] Glucose [Mass/Vol] 97 mg/dL Normal 70-100 [facility] Comment on above: Order Comment: Arnav perez Type: BLOOD SPECIMEN Ordering Facility: [facility] Address: [address] [place] [address] Result Comment: The [place] [employer] (ADA) provides guidance for cutoff values for fasting glucose and random glucose. The ADA defines fasting as no caloric intake for at least 8 hours. Fasting plasma glucose results between 100 to 125 mg/dL indicate increased risk for diabetes (prediabetes). Fasting plasma glucose results greater than or equal to 126 mg/dL meet the criteria for diagnosis of diabetes. In the absence of unequivocal hyperglycemia, results should be confirmed by repeat testing. In a patient with classic symptoms of hyperglycemia or hyperglycemic crisis, random plasma glucose results greater than or equal to 200 mg/dL meet the criteria for diagnosis of diabetes. Reference: Standards of Medical Care in Diabetes 2016, [place] [employer]. Diabetes Care. 2016.39(Suppl 1). Results may be falsely elevated after the administration of Sulfapyridine. Results may be falsely depressed after the administration of Sulfasalazine. Performed By: #### 2 4321-2 #### [facility] CLIA [id number] [address] [place] [address] [place] Potassium [Moles/Vol] 4.7 mmol/L Normal 3.5-5.[address] [facility] Comment on above: Order Comment: Speci men Type: BLOOD SPECIMEN Ordering Facility: [facility] Address: [address] [place] [address] Performed By: #### 2 4321-2 #### [facility] CLIA [id number] [address] [place] [address] [place] Sodium [Moles/Vol] 141 mmol/L Normal 136-145 [facility] Comment on above: Order Comment: Speci men Type: BLOOD SPECIMEN Ordering Facility: [facility] Address: [address] [place] [address] Performed By: #### 2 4321-2 #### [facility] CLIA [id number] [address] [place] [address] [place] Urea nitrogen [Mass/Vol] 18 mg/dL Normal 7-26 [facility] Comment on above: Order Comment: Speci men Type: BLOOD SPECIMEN Ordering Facility: [facility] Address: [address] [place] [address] Performed By: #### 2 4321-2 #### [facility] CLIA [id number] [address] [place] [address] [place] CBC W Auto Differential pane l (Bld)on 04-20-2023 Basophils (Bld) [#/Vol] 0.03 10*3/uL Normal <0.11 [facility] Comment on above: Order Comment: Speci men Type: BLOOD SPECIMEN Ordering Facility: [facility] Address: [address] [place] [address] Performed By: #### 5 7021-8 #### [facility] CLIA [id number] [address] [place] [address] [place] Basophils/100 WBC (Bld) 0.4 % Normal [facility] Comment on above: Order Comment: Speci men Type: BLOOD SPECIMEN Ordering Facility: [facility] Address: [address] [place] [address] Performed By: #### 5 7021-8 #### [facility] CLIA [id number] [address] [place] [address] [place] Differential cell count method Nom (Bld) Auto Normal [facility] Comment on above: Order Comment: Speci men Type: BLOOD SPECIMEN Ordering Facility: [facility] Address: [address] [place] [address] Performed By: #### 5 7021-8 #### [facility] CLIA [id number] [address] [place] [address] [place] Eosinophils (Bld) [#/Vol] 0.05 10*3/uL Normal <0.46 [facility] Comment on above: Order Comment: Speci men Type: BLOOD SPECIMEN Ordering Facility: [facility] Address: [address] [place] [address] Performed By: #### 5 7021-8 #### [facility] CLIA [id number] [address] [place] [address] [place] Eosinophils/100 WBC (Bld) 0.7 % Normal [facility] Comment on above: Order Comment: Speci men Type: BLOOD SPECIMEN Ordering Facility: [facility] Address: [address] [place] [address] Performed By: #### 5 7021-8 #### [facility] CLIA [id number] [address] [place] [address] [place] Erythrocyte distribution width (RBC) [Ratio] 12.2 % Normal 11.5-15.0 [facility] Comment on above: Order Comment: Speci men Type: BLOOD SPECIMEN Ordering Facility: [facility] Address: [address] [place] [address] Performed By: #### 5 7021-8 #### [facility] CLIA [id number] [address] [place] [address] [place] Hematocrit (Bld) [Volume fraction] 47.7 % Normal 39.0-51.0 [facility] Comment on above: Order Comment: Speci men Type: BLOOD SPECIMEN Ordering Facility: [facility] Address: [address] [place] [address] Performed By: #### 5 7021-8 #### [facility] CLIA [id number] [address] [place] [address] [place] Hemoglobin (Bld) [Mass/Vol] 16.5 g/dL Normal 13.0-17.0 [facility] Comment on above: Order Comment: Speci men Type: BLOOD SPECIMEN Ordering Facility: [facility] Address: [address] [facility] [place] [address] Performed By: #### 5 7021-8 #### [facility] CLIA [id number] [address] [place] [address] [place] Immature granulocytes (Bld) [#/Vol] 10*3/uL Normal <0.10 [facility] Comment on above: Order Comment: Speci men Type: BLOOD SPECIMEN Ordering Facility: [facility] Address: [address] [facility] [address] Performed By: #### 5 7021-8 #### [facility] CLIA [id number] [address] [place] [address] [place] Immature granulocytes/100 WBC (Bld) 0.1 % Normal [facility] Comment on above: Order Comment: Speci men Type: BLOOD SPECIMEN Ordering Facility: [facility] Address: [address] [place] [address] Performed By: #### 5 7021-8 #### [facility] CLIA [id number] [address] [place] [address] [place] Lymphocytes (Bld) [#/Vol] 1.40 10*3/uL Normal 1.00-4.00 [facility] Comment on above: Order Comment: Speci men Type: BLOOD SPECIMEN Ordering Facility: [facility] Address: [address] [facility] [address] Performed By: #### 5 7021-8 #### [facility] CLIA [id number] [address] [place], [place] [id number] [place] Lymphocytes/100 WBC (Bld) 20.3 % Normal [facility] Comment on above: Order Comment: Speci men Type: BLOOD SPECIMEN Ordering Facility: [facility] Address: [address] [place] [address] Performed By: #### 5 7021-8 #### [facility] CLIA [id number] [address] [place] [address] [place] MCH (RBC) [Entitic mass] 28.7 pg Normal 26.0-34.0 [facility] Comment on above: Order Comment: Speci men Type: BLOOD SPECIMEN Ordering Facility: [facility] Address: [address] [place] [address] Performed By: #### 5 7021-8 #### [facility] CLIA [id number] [address] [place] [address] [place] MCHC (RBC) [Mass/Vol] 34.6 g/dL Normal 30.5-36.[address] [facility] Comment on above: Order Comment: Speci men Type: BLOOD SPECIMEN Ordering Facility: [facility] Address: [address] [place] [address] Performed By: #### 5 7021-8 #### [facility] CLIA [id number] [address] [place] [address] [place] MCV (RBC) [Entitic vol] 83.0 fL Normal 80.0-100.0 [facility] Comment on above: Order Comment: Speci men Type: BLOOD SPECIMEN Ordering Facility: [facility] Address: [address] [place] [address] Performed By: #### 5 7021-8 #### [facility] CLIA [id number] [address] [place] [address] [place] Monocytes (Bld) [#/Vol] 0.48 10*3/uL Normal <0.87 [facility] Comment on above: Order Comment: Speci men Type: BLOOD SPECIMEN Ordering Facility: [facility] Address: [address] [place] [address] Performed By: #### 5 7021-8 #### [facility] CLIA [id number] [address] [place] [address] [place] Monocytes/100 WBC (Bld) 6.9 % Normal [facility] Comment on above: Order Comment: Speci men Type: BLOOD SPECIMEN Ordering Facility: [facility] Address: [address] [place] [address] Performed By: #### 5 7021-8 #### [facility] CLIA [id number] [address] [place] [address] [place] Neutrophils (Bld) [#/Vol] 4.94 10*3/uL Normal 1.45-7.50 [facility] Comment on above: Order Comment: Speci men Type: BLOOD SPECIMEN Ordering Facility: [facility] Address: [address] [place] [address] Performed By: #### 5 7021-8 #### [facility] CLIA [id number] [address] [place] [address] [place] Neutrophils/100 WBC (Bld) 71.6 % Normal [facility] Comment on above: Order Comment: Speci men Type: BLOOD SPECIMEN Ordering Facility: [facility] Address: [address] [place] [address] Performed By: #### 5 7021-8 #### [facility] CLIA [id number] [address] [place] [address] [place] Nucleated RBC (Bld) [#/Vol] 10*3/uL Normal <0.01 [facility] Comment on above: Order Comment: Speci men Type: BLOOD SPECIMEN Ordering Facility: [facility] Address: [address] [place] [address] Performed By: #### 5 7021-8 #### [facility] CLIA [id number] [address] [place] [address] [place] Nucleated RBC/100 WBC (Bld) [Ratio] 0.0 /[address] [facility] Comment on above: Order Comment: Speci men Type: BLOOD SPECIMEN Ordering Facility: [facility] Address: [address] [place] [address] Performed By: #### 5 7021-8 #### [facility] CLIA [id number] [address] [place], [place] [id number] [place] Platelet mean volume (Bld) [Entitic vol] 10.7 fL Normal 9.0-12.7 [facility] Comment on above: Order Comment: Speci men Type: BLOOD SPECIMEN Ordering Facility: [facility] Address: [address] [place] [address] Performed By: #### 5 7021-8 #### [facility] CLIA [id number] [address] [place] [address] [place] Platelets (Bld) [#/Vol] 283 10*3/uL Normal 150-400 [facility] Comment on above: Order Comment: Speci men Type: BLOOD SPECIMEN Ordering Facility: [facility] Address: [address] [place] [address] Performed By: #### 5 7021-8 #### [facility] CLIA [id number] [address] [place] [address] [place] RBC (Bld) [#/Vol] 5.75 10*6/uL Normal 4.20-6.00 [facility] Comment on above: Order Comment: Speci men Type: BLOOD SPECIMEN Ordering Facility: [facility] Address: [address] [place] [address] Performed By: #### 5 7021-8 #### [facility] CLIA [id number] [address] [place], [place] [id number] [place] WBC (Bld) [#/Vol] 6.91 10*3/uL Normal 3.70-11.00 [facility] Comment on above: Order Comment: Speci men Type: BLOOD SPECIMEN Ordering Facility: [facility] Address: [address] [place] [address] Performed By: #### 5 7021-8 #### [facility] CLIA [id number] [address] [place], [place] [id number] [place] CTA ABD/PEL W IVCONon 2023 CTA ABD/PEL W IVCON * * *Final Report* * * DATE OF EXAM: Apr 20 2023 5:22PM [facility] 0311 - CTA ABD/PEL W IVCON / PROCEDURE REASON: Aortic dissection suspected * * * * Physician Interpretation * * * * EXAMINATION: CTA CHEST WITHOUT AND WITH CONTRAST, WITH 3-D RECONSTRUCTIONS CTA ABDOMEN AND PELVIS WITH CONTRAST, WITH 3-D RECONSTRUCTIONS HISTORY: HX OF DISSECTION X3 REPAIRS, UPPER BACK PAIN INCREASING IN INTENSITY HX OF DISSECTION X3 REPAIRS, UPPER BACK PAIN INCREASING IN INTENSITY TECHNIQUE: Spiral CT acquisition of the chest prior to, then through the chest, abdomen and pelvis following bolus infusion of IV iodinated contrast. 3D image post-processing was performed at the request of the referring physician, on the CT scanner workstation under physician supervision. Contrast: IV: 100 mL of Omnipaque 350 CT Radiation dose: Integrated Dose-length product (DLP) for this visit = 1202.49 mGy*cm. CT Dose Reduction Employed: Automated exposure control(AEC) and iterative recon COMPARISON: 09/20/2022. RESULT: Vasculature: Aortic valve replacement. A patent within the left innominate artery is present. 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 A stent within the left common carotid artery is present and unremarkable. A stent graft within the distal ascending thoracic aorta is seen extending to the distal descending thoracic aorta. A second stent is seen extending down to the aortic bifurcation. This has not significantly changed since previous exam. A dissection extends into the proximal to mid right common iliac artery, unchanged. The celiac artery, superior mesenteric artery, renal arteries, and inferior mesenteric artery are patent. The left common iliac artery is normal. The external iliac arteries and common femoral arteries are within normal limits. There is no evidence of an endoleak. Chest: Lines, Tubes, and Devices: N/A Lungs and Pleura: Central airways are patent. No suspicious pulmonary nodules. No consolidations. No pleural effusions. No pneumothorax. Cardiomediastinal structures: Within normal limits. Neck base: Within normal limits. Thoracic lymph nodes: No lymphadenopathy. Bones and Soft tissues: No acute fracture or destructive osseous lesion. Abdomen and pelvis: Liver: No mass. Normal morphology. Biliary: No bile duct dilation. Spleen: No mass. No splenomegaly. Pancreas: No mass or duct dilation. Adrenals: No mass. Kidneys: Normal appearance. Bladder is unremarkable. GI tract: No dilation or wall thickening. Diverticular disease without diverticulitis. Lymph nodes: No abdominal or pelvic lymphadenopathy. Mesentery/Peritoneum: No free air or fluid collection. Retroperitoneum: No mass or hematoma. Pelvis: No masses identified. Bones/Soft Tissues: No acute fracture or destructive osseous lesion. IMPRESSION: Chest: STABLE STENT THROUGHOUT MOST OF THE THORACIC AORTA WITHOUT EVIDENCE OF ACUTE INTRATHORACIC PATHOLOGY. Abdomen and pelvis: STABLE STENT WITHIN THE ABDOMINAL AORTA WITHOUT EVIDENCE OF ACUTE INTRA-ABDOMINAL OR INTRAPELVIC PATHOLOGY. Conduit Reamer Operator: PSCB Transcribe Date/Time: Apr 20 2023 6:38P Dictated by : GERSON DURAN MD This examination was interpreted and the report reviewed and electronically signed by: GERSON DURAN MD on Apr 20 2023 6:56PM EST [id number] [facility] CTA CHEST (GATED) WO/W IVCON on 04-20-2023 CTA CHEST (GATED) WO/W IVCON * * *Final Report* * * DATE OF EXAM: Apr 20 2023 5:22PM [facility] 0126 - CTA CHEST (GATED) WO/W IVCON / PROCEDURE REASON: Aortic dissection suspected * * * * Physician Interpretation * * * * EXAMINATION: CTA CHEST WITHOUT AND WITH CONTRAST, WITH 3-D RECONSTRUCTIONS CTA ABDOMEN AND PELVIS WITH CONTRAST, WITH 3-D RECONSTRUCTIONS HISTORY: HX OF DISSECTION X3 REPAIRS, UPPER BACK PAIN INCREASING IN INTENSITY HX OF DISSECTION X3 REPAIRS, UPPER BACK PAIN INCREASING IN INTENSITY TECHNIQUE: Spiral CT acquisition of the chest prior to, then through the chest, abdomen and pelvis following bolus infusion of IV iodinated contrast. 3D image post-processing was performed at the request of the referring physician, on the CT scanner workstation under physician supervision. Contrast: IV: 100 mL of Omnipaque 350 CT Radiation dose: Integrated Dose-length product (DLP) for this visit = 1202.49 mGy*cm. CT Dose Reduction Employed: Automated exposure control(AEC) and iterative recon COMPARISON: 09/20/2022. RESULT: Vasculature: Aortic valve replacement. A patent within the left innominate artery is present. 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 A stent within the left common carotid artery is present and unremarkable. A stent graft within the distal ascending thoracic aorta is seen extending to the distal descending thoracic aorta. A second stent is seen extending down to the aortic bifurcation. This has not significantly changed since previous exam. A dissection extends into the proximal to mid right common iliac artery, unchanged. The celiac artery, superior mesenteric artery, renal arteries, and inferior mesenteric artery are patent. The left common iliac artery is normal. The external iliac arteries and common femoral arteries are within normal limits. There is no evidence of an endoleak. Chest: Lines, Tubes, and Devices: N/A Lungs and Pleura: Central airways are patent. No suspicious pulmonary nodules. No consolidations. No pleural effusions. No pneumothorax. Cardiomediastinal structures: Within normal limits. Neck base: Within normal limits. Thoracic lymph nodes: No lymphadenopathy. Bones and Soft tissues: No acute fracture or destructive osseous lesion. Abdomen and pelvis: Liver: No mass. Normal morphology. Biliary: No bile duct dilation. Spleen: No mass. No splenomegaly. Pancreas: No mass or duct dilation. Adrenals: No mass. Kidneys: Normal appearance. Bladder is unremarkable. GI tract: No dilation or wall thickening. Diverticular disease without diverticulitis. Lymph nodes: No abdominal or pelvic lymphadenopathy. Mesentery/Peritoneum: No free air or fluid collection. Retroperitoneum: No mass or hematoma. Pelvis: No masses identified. Bones/Soft Tissues: No acute fracture or destructive osseous lesion. IMPRESSION: Chest: STABLE STENT THROUGHOUT MOST OF THE THORACIC AORTA WITHOUT EVIDENCE OF ACUTE INTRATHORACIC PATHOLOGY. Abdomen and pelvis: STABLE STENT WITHIN THE ABDOMINAL AORTA WITHOUT EVIDENCE OF ACUTE INTRA-ABDOMINAL OR INTRAPELVIC PATHOLOGY. Conduit Reamer Operator: CHARLIE Transcribe Date/Time: Apr 20 2023 6:38P Dictated by : GERSON DURAN MD This examination was interpreted and the report reviewed and electronically signed by: GERSON DURAN MD on Apr 20 2023 6:56PM EST [id number] [facility] ED NOTEon 04-20-2023 ED NOTE HNO ID: [id number] Author: KARTHIK LOPEZ RN Service: ? Author Type: Registered Nurse Type: ED Notes Filed: 04/20/2023 15:47 Note Text: Pt sitting in bed alert and oriented with ABCs intact. Pt reports upper back pain since yesterday and pressure in neck. Respirations unlabored and skin warm and dry., [facility] ED NOTE HNO ID: [id number] Author: LISA ORTEGA RN Service: ? Author Type: Registered Nurse Type: ED Notes Filed: 04/20/2023 15:34 Note Text: Bed: 12-ED Expected date: Expected time: Means of arrival: Comments: [facility] ED NOTE HNO ID: [id number] Author: KATARZYNA CHASE RN Service: ? Author Type: Registered Nurse Type: ED Notes Filed: 04/20/2023 15:30 Note Text: Patient has a hx of multiple aortic dissections w/ emergent surgical repairs. Last surgery was june of last year. Patient states his current back pain feels similar to previous dissections. No thinners, BP checked on both arms w/ minimal difference between. [facility] ED PROV NOTEon 04-20-2023 ED PROV NOTE HNO ID: [id number] Author: SHARON PEARL MD Service: ? Author Type: Physician Type: ED Provider Notes Filed: 04/20/2023 19:07 Note Text: ED Provider Note Patient Name: Beck Fraga : 1975 SERVICE DATE: 04/20/23 History Patient presents with: Back Pain: Upper back pain started when pt woke up today. Progressively worsening. PM Hx aortic dissection w/ surgical repairs, states this feel similar. This is a 39-year-old male who comes in for evaluation of some discomfort in the upper back area. Just a little bit to the left of the spine. He states he started to notice it today essentially getting out of bed. No injury. He does have a history of aortic dissection that was repaired in 2013 and then a second surgery last year. He states some of the's are similar to that. He states he has a little bit of achiness in the posterior aspect of the left shoulder and left upper arm. He has not really noticed any specific exacerbating or alleviating factors. Although it was quite tender to palpation when I palpated on the area today. He states that he is felt like his carotid arteries or throbbing for the last couple of days intermittently. He denies any weakness or incoordination of his arms or legs. Denies fevers chills or cough. PAST MEDICAL HISTORY Diagnosis Date Aortic dissection (HCC) 2013 s/p 2013 AVR / ascending aortic dissection repair. 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 Aortic dissection (HCC) 2013 s/p 2013 AVR / ascending aortic dissection repair. 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 Bicuspid aortic valve 2013 s/p 2013 AVR / ascending aortic dissection repair. 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 CAD (coronary artery disease) 2013 Carotid artery dissection (HCC) 2013 Dizziness Former tobacco use quit smoking AND chewing GERD (gastroesophageal reflux disease) History of spinal cord injury Migraine Pleuritis Postoperative atrial fibrillation (HCC) 05/2018 postop 05/2018 atrial fibrillation (tx amio). Seizures ([facility]) 2013 Stroke ([facility]) 2013 9 days post op 2013 after aorta surgery. residual left hand weakness. Vasovagal syncope PAST SURGICAL HISTORY Procedure Laterality Date APPENDECTOMY age 11 HEART SURGERY HX 06/04/2018 REDO Aortic valve replace (27mm Inspiris bioprosthetic valve), aortic root replacement (30mm Valsalva graft), ascending / total arch replacement (28 mm Dacron graft) and stent grafting of left subclavian artery / left common carotid artery, dissection of left common carotid artery / left subclavian artery, and repair of dissected left subclavian and left common carotid arteries [facility], Dr Thorpe HEART SURGERY HX 2013 Aortic valve replacement (bioprosthetic) AND ascending aortic dissection repair (supracoronary graft). Done at [facility] in [place]. MYRINGOTOMY ASPIRAND/EUSTACHIAN TUBE NFLTJ ANES age 4 Myringotomy/tubes TILT TABLE TEST 07/22/2017 VASECTOMY UNI/BI SPX W/POSTOP SEMEN EXAMS 02/10/09 FAMILY HISTORY Problem Relation Age of Onset Stroke Mother Hyperlipidemia Mother Stroke Father Heart disease Father Hypertension Father Hyperlipidemia Father Social History Tobacco Use Smoking status: Former Packs/day: 1.00 Years: 20.00 Additional pack years: 0.00 Total pack years: 20.00 Types: Cigarettes Quit date: 03/11/2014 Years since quittin.1 Smokeless tobacco: Former Types: Chew Substance and Sexual Activity Alcohol use: No Drug use: No Sexual activity: Not on file ALLERGIES Allergen Reactions Citalopram Other: See Comments Percocet [Oxycodone* Shortness of Breath Review of Systems Physical Exam Vitals [04/20/23 1522] BP Pulse Temp Temp src Resp SpO2 Weight Height 159/76 (!) 54 36.4 ?C (97.6 ?F) Oral 16 98 % 90.7 kg (200 lb) 1.702 m (5' 7) Physical Exam Vitals reviewed. Constitutional: Comments: Alert, no distress, vitals appear stable without significant hypertension. Eyes: Pupils: Pupils are equal, round, and reactive to light. Cardiovascular: Rate and Rhythm: Normal rate. Pulmonary: Effort: Pulmonary effort is normal. Abdominal: Palpations: Abdomen is soft. Tenderness: There is no abdominal tenderness. Comments: No pulsatile abdominal mass Musculoskeletal: Cervical back: Normal range of motion. Comments: He does have some discomfort to palpation just to the left of the upper thoracic spine. There is no visible abnormalities noted. That is tender to palpation though. Mid thoracic and lumbar spine were nontender. No calf or thigh tenderness no ankle edema. No clinical feat (more content not included)... Normal [facility] EKGon 04-20-2023 Electrocardiogram Ventricular Rate : 5 2 BPM Atrial Rate : 52 BPM P-R Interval : 180 ms QRS Duration : 104 ms Q-T Interval : 428 ms QTC Calculation(Bazett) : 398 ms Calculated P [place] : 54 degrees Calculated R [place] : -42 degrees Calculated T [place] : 63 degrees Sinus bradycardia Left axis deviation Abnormal ECG No previous ECGs available Confirmed by BLAKE SCOTT MD ([id number]) on 04/21/2023 8:26:12 AM NAME : BECK FRAGA PID : [id number] : 1975 Gender : Male Race : ORD : Procedure Date : Apr 20 2023 15:34:27 Edit Date : Apr 21 2023 08:26:17 Diagnosis: Sinus bradycardia Left axis deviation Abnormal ECG No previous ECGs available Confirmed by BLAKE SCOTT MD ([id number]) on 04/21/2023 8:26:12 AM Test Reason : STAT Location : 0 : ED 12 Overread By : BLAKE SCOTT MD Edited By : BLAKE SCOTT MD Referred By : , Acquired by : Hussein GRIMES [facility] HIGH SENSITIVITY TROPONIN Io n 04-20-2023 Tropinin I.cardiac panel High sensitivity method 3.6 pg/mL Normal 0.0-54.0 [facility] Comment on above: Order Comment: Arnav perez Type: BLOOD SPECIMEN Ordering Facility: [facility] Address: [place] [address] Result Comment: This assay uses different antibodies than our current assay, and assays, even by the same morgue technician may recognize different regions of the antibody and cannot be used interchangeably. Expect results of this assay to run higher than the previous assay. Performed By: #### H STROP #### [facility] CLIA [id number] [address] [place] [address] OF [facility] PT panel Coag (PPP)on 2023 INR Coag (PPP) [Relative time] 1.0 {INR} Normal 0.9-1.3 [facility] Comment on above: Order Comment: Arnav perez Type: BLOOD SPECIMEN Ordering Facility: [facility] Address: [address] [place] [address] Result Comment: Manasa min K Antagonist (VKA) Therapeutic Range: INR 2 to 3 (Target INR of 2.5) Note: For patients treated with VKA drugs, such as warfarin, the [employer] 2012 Guideline recommends a therapeutic INR range of 2 to 3 (target INR of 2.5). This recommendation includes high-risk patients with antiphospholipid syndrome with previous arterial or venous thromboembolism, current-generation mechanical or bioprosthetic aortic heart valve replacement. Note: Patients with mechanical aortic valve replacement and additional risk factors for thromboembolic events (atrial fibrillation, previous thromboembolism, LV dysfunction, hypercoagulable conditions) or an older generation mechanical AVR (i.e., ball in-Cage) or any mechanical MVR should have a INR therapeutic range of 2.5 to 3.5 (target INR of 3). Pete GH, et al. Chest 2012, 141:7S-47S Erika RA, et al. [facility] 2017, 70: 252-289 Performed By: #### 3 4528-0, 26262-3 #### [facility] CLIA [id number] [address] [place] [address] STATES OF [facility] PT Coag (PPP) [Time] 10.9 s Normal 9.7-13.0 [facility] Comment on above: Order Comment: Speci men Type: BLOOD SPECIMEN Ordering Facility: [facility] Address: [address] [place] [address] Performed By: #### 3 4528-0, 28532-8 #### [facility] CLIA [id number] [address] [place] [address] STATES [facility] aPTT PPPon 04-20-2023 aPTT Coag (PPP) [Time] 28.7 s Normal 23.0-32.4 [facility] Comment on above: Order Comment: Speci men Type: BLOOD SPECIMEN Ordering Facility: [facility] Address: [address] [place] [address] Performed By: #### 3 4528-0, 07151-6 #### [facility] CLIA [id number] [address] [place] [address] STATES [facility] Absolute lymphocyte countOrd ered By: Nguyễn Stark on 11-27-2022 Lymphocytes Auto (Unsp spec) [#/Vol] 1.06 10*3/uL 0.83-4.51 [facility] Basophil percentageOrdered B y: Nguyễn Stark on 11-27-2022 Basophils/100 WBC (Bld) 0.4 % 0-1 [facility] Bilirubin [Mass/Vol] 0.50 mg/dL 0.20-1.00 [facility] Comment on above: For patients on eltr ombopag therapy, use of Dimension [place] TBIL is not recommended. Chloride [Moles/Vol] 110 mmol/L 98-107 [facility] Cholesterol [Mass/Vol] 119 mg/dL <200 [facility] Comment on above: <200 mg/dL Desirable 200-240 mg/dL Borderline >240 mg/dL High Risk Eosinophils/100 WBC (Bld) 1.0 % 0-5 [facility] Glucose [Mass/Vol] 89 mg/dL 74-106 [facility] Neutrophils (Bld) [#/Vol] 3.6 10*3/uL 2.0-7.7 [facility] Neutrophils/100 WBC (Bld) 70.4 % 47-70 [facility] Potassium [Moles/Vol] 4.0 mmol/L 3.5-5.1 [facility] Protein [Mass/Vol] 6.7 g/dL 6.4-8.2 [facility] Sodium [Moles/Vol] 142 mmol/L 136-145 [facility] Triglyceride [Mass/Vol] 99 mg/dL <199 [facility] Comment on above: The drugs N-Acetylcy steine and Metamizole may falsely depress this assay.Serum Triglycerides Reference Interval Normal <150 mg/dL Borderline high 150 - 199 mg/dL High 200 - 499 mg/dL Very High > or = 500 mg/dL WBC (Bld) [#/Vol] 5.1 10*3/uL 4.4-11.0 [facility] Blood erythrocytes count (nu mber/volume)Ordered By: Nguyễn Stark on 11-27-2022 RBC (Bld) [#/Vol] 5.49 10*6/uL 4.6-6.2 [facility] Blood hemoglobin measurement (mass/volume)Ordered By: Nguyễn Stark on 11-27-2022 Hemoglobin (Bld) [Mass/Vol] 14.9 g/dL 13.0-16.5 [facility] Blood lymphocytes/100 leukoc ytesOrdered By: Nguyễn Stark on 11-27-2022 Lymphocytes/100 WBC (Bld) 20.9 % 19-41 [facility] Blood monocytes/100 leukocyt esOrdered By: Nguyễn Stark on 11-27-2022 Monocytes/100 WBC (Bld) 6.9 % 0-10 [facility] Blood platelet mean volumeOr dered By: Nguyễn Stark on 11-27-2022 Platelet mean volume (Bld) [Entitic vol] 10.9 fL 6.2-12.0 [facility] Determination of erythrocyte mean corpuscular volume (MCV)Ordered By: Nguyễn Stark on 11-27-2022 MCV (RBC) [Entitic vol] 83.4 fL 80-94 [facility] Hematocrit Auto (Bld) [Volum e fraction]Ordered By: Nguyễn Stark on 11-27-2022 Hematocrit (Bld) [Volume fraction] 45.8 % 40-54 [facility] Laboratory - Chemistry and C hemistry - challengeOrdered By: Nguyễn Stark on 11-27-2022 ALP [Catalytic activity/Vol] 103 U/L 45-117 [facility] ALT [Catalytic activity/Vol] 26 U/L 16-61 [facility] CO2 [Moles/Vol] 27.0 mmol/L 21.0-32.0 [facility] Globulin (S) [Mass/Vol] 3.2 g/dL 2.2-4.2 [facility] Urea nitrogen/Creatinine [Mass ratio] 10.4 mg/mg 10-20 [facility] Laboratory - Hematology and Cell countsOrdered By: Nguyễn Stark on 11-27-2022 Erythrocyte distribution width (RBC) [Entitic vol] 38.9 fL 35.1-43.9 [facility] Erythrocyte distribution width (RBC) [Ratio] 13.0 % 11.6-14.6 [facility] Immature granulocytes/100 WBC (Bld) 0.400 % 0.0-0.9 [facility] Comment on above: IG% - Immature Granu locytes (promyelocytes, myelocytes and metamyelocytes) > 1% indicates that a LEFT SHIFT is Present. MCH (RBC) [Entitic mass] 27.1 pg 27.0-32.0 [facility] Nucleated RBC/100 WBC (Bld) [Ratio] 0 % 0-5 [facility] MCHC Auto (RBC) [Mass/Vol]Or dered By: Nguyễn Stark on 11-27-2022 MCHC (RBC) [Mass/Vol] 32.5 g/dL 32-36 [facility] No Panel InformationOrdered By: Nguyễn Stark on 11-27-2022 Estimated GFR (MDRD) Amer 96 mL/min >60 [facility] Comment on above: GFR Calc Estimated GFR (MDRD) Non-Af Amer 79 mL/min >60 [facility] Comment on above: Non- GFR Calc Thyroid Stimulating Hormone (TSH) 1.31 uIU/mL 0.358-3.74 [facility] Platelets bldOrdered By: Nguyễn Stark on 11-27-2022 Platelets (Bld) [#/Vol] 224 10*3/uL 150-450 [facility] Serum or plasma albumin sathish urement (mass/volume)Ordered By: Nguyễn Stark on 11-27-2022 Albumin [Mass/Vol] 3.5 g/dL 3.2-5.0 [facility] Serum or plasma albumin/glob ulin mass ratioOrdered By: Nguyễn Stark 11-27-2022 Albumin/Globulin [Mass ratio] 1.1 {ratio} 0.9-2.4 [facility] Serum or plasma calcium sathish urement (mass/volume)Ordered By: Nguyễn Stark 11-27-2022 Calcium [Mass/Vol] 8.5 mg/dL 8.5-10.1 [facility] Serum or plasma cholesterol in HDL measurement (mass/volume)Ordered By: Nguyễn Stark 11-27-2022 Cholesterol in HDL [Mass/Vol] 39 mg/dL >40 [facility] Comment on above: The drugs N-Acetylcy steine and Metamizole may falsely depress this assay. Reference Range HDL <40 mg/dL Low HDL Cholesterol HDL >or= 60 mg/dL High HDL Cholesterol Serum or plasma cholesterol in VLDL measurement (mass/volume)Ordered By: Nguyễn Stark 11-27-2022 Cholesterol in VLDL [Mass/Vol] 20 mg/dL 5-40 [facility] Serum or plasma creatinine m easurement (mass/volume)Ordered By: Nguyễn Stark 11-27-2022 Creatinine [Mass/Vol] 1.06 mg/dL 0.70-1.30 [facility] Comment on above: The validity of the calculated GFR & GFRAA in patients over 70 years has not been determined. Clinical correlation is essential. Serum or plasma low density lipoprotein (LDL) cholesterol measurement (mass/volume)Ordered By: Nguyễn Stark 11-27-2022 Cholesterol in LDL [Mass/Vol] 60 mg/dL 0-130 [facility] Serum or plasma urea nitroge n measurement (mass/volume)Ordered By: Nguyễn Stark 11-27-2022 Urea nitrogen [Mass/Vol] 11 mg/dL 7-18 [facility] Thin prep Papanicolaou smear with manual screeningOrdered By: Nguyễn Stark on 11-27-2022 Thin prep Papanicolaou smear with manual screening 19 U/L 15-37 [facility] Thin prep Papanicolaou smear with manual screening 5 5-15 [facility] No Panel Informationon 09-20 [facility] - Microbiology an d Antimicrobial susceptibilityon 06-26-2022 S. aureus and MRSA panel ENRRIQUE+probe (Nose) Negative Negative [facility] No Panel Informationon 06-26 [facility] NM CARDIAC PERF STRESS/PHARM on 06-25-2022 [facility] Absolute lymphocyte countOrd ered By: Dr. Stark on 05-30-2022 Lymphocytes Auto (Unsp spec) [#/Vol] 1.26 10*3/uL 0.83-4.51 [facility] Basophil percentageOrdered B y: Dr. Stark on 05-30-2022 Basophils/100 WBC (Bld) 0.6 % 0-1 [facility] Bilirubin [Mass/Vol] 0.40 mg/dL 0.20-1.00 [facility] Comment on above: For patients on eltr ombopag therapy, use of Dimension [place] TBIL is not recommended. Chloride [Moles/Vol] 107 mmol/L 98-107 [facility] Eosinophils/100 WBC (Bld) 1.9 % 0-5 [facility] Glucose [Mass/Vol] 131 mg/dL 74-106 [facility] Comment on above: Fasting Glucose resu lt greater than or equal to 126 mg/dL suggests DIABETES MELLITUS per A.D.A. criteria. Neutrophils (Bld) [#/Vol] 3.6 10*3/uL 2.0-7.7 [facility] Neutrophils/100 WBC (Bld) 67.6 % 47-70 [facility] Potassium [Moles/Vol] 3.8 mmol/L 3.5-5.1 [facility] Protein [Mass/Vol] 6.7 g/dL 6.4-8.2 [facility] Sodium [Moles/Vol] 141 mmol/L 136-145 [facility] Testosterone [Mass/Vol] 328.38 ng/dL [facility] Comment on above: CENTRAL 90% REFERENC E RANGES MALE AGE <50 197.44 - 669.58 ng/dL MALE AGE > or = 50 187.72 - 684.19 ng/dL FEMALE AGE <50 8.38 - 35.01 ng/dL FEMALE AGE > or = 50 <7.00 - 35.92 ng/dL Effective as of 11/07/20 WBC (Bld) [#/Vol] 5.3 10*3/uL 4.4-11.0 [facility] Blood erythrocytes count (nu mber/volume)Ordered By: Dr. Stark on 05-30-2022 RBC (Bld) [#/Vol] 5.21 10*6/uL 4.6-6.2 [facility] Blood hemoglobin measurement (mass/volume)Ordered By: Dr. Stark on 05-30-2022 Hemoglobin (Bld) [Mass/Vol] 15.5 g/dL 13.0-16.5 [facility] Blood lymphocytes/100 leukoc ytesOrdered By: Dr. Stark on 05-30-2022 Lymphocytes/100 WBC (Bld) 23.7 % 19-41 [facility] Blood monocytes/100 leukocyt esOrdered By: Dr. Stark on 05-30-2022 Monocytes/100 WBC (Bld) 5.8 % 0-10 [facility] Blood platelet mean volumeOr dered By: Dr. Stark on 05-30-2022 Platelet mean volume (Bld) [Entitic vol] 11.1 fL 6.2-12.0 [facility] Determination of erythrocyte mean corpuscular volume (MCV)Ordered By: Dr. Stark on 05-30-2022 MCV (RBC) [Entitic vol] 86.4 fL 80-94 [facility] Hematocrit Auto (Bld) [Volum e fraction]Ordered By: Dr. Stark on 05-30-2022 Hematocrit (Bld) [Volume fraction] 45.0 % 40-54 [facility] Laboratory - Chemistry and C hemistry - challengeOrdered By: Dr. Stark on 05-30-2022 ALP [Catalytic activity/Vol] 120 U/L 45-117 [facility] ALT [Catalytic activity/Vol] 46 U/L 16-61 [facility] CO2 [Moles/Vol] 27.0 mmol/L 21.0-32.0 [facility] Globulin (S) [Mass/Vol] 3.2 g/dL 2.2-4.2 [facility] Urea nitrogen/Creatinine [Mass ratio] 14.5 mg/mg 10-20 [facility] Laboratory - Hematology and Cell countsOrdered By: Dr. Stark on 05-30-2022 Erythrocyte distribution width (RBC) [Entitic vol] 38.5 fL 35.1-43.9 [facility] Erythrocyte distribution width (RBC) [Ratio] 12.2 % 11.6-14.6 [facility] Immature granulocytes/100 WBC (Bld) 0.400 % 0.0-0.9 [facility] Comment on above: IG% - Immature Granu locytes (promyelocytes, myelocytes and metamyelocytes) > 1% indicates that a LEFT SHIFT is Present. MCH (RBC) [Entitic mass] 29.8 pg 27.0-32.0 [facility] Nucleated RBC/100 WBC (Bld) [Ratio] 0 % 0-5 [facility] MCHC Auto (RBC) [Mass/Vol]Or dered By: Dr. Stark on 05-30-2022 MCHC (RBC) [Mass/Vol] 34.4 g/dL 32-36 [facility] No Panel InformationOrdered By: Dr. Stark on 05-30-2022 Estimated GFR (MDRD) Amer 92 mL/min >60 [facility] Comment on above: GFR Calc Estimated GFR (MDRD) Non-Af Amer 76 mL/min >60 [facility] Comment on above: Non- GFR Calc Thyroid Stimulating Hormone (TSH) 2.53 uIU/mL 0.358-3.74 [facility] Platelets bldOrdered By: Dr. Stark on 05-30-2022 Platelets (Bld) [#/Vol] 216 10*3/uL 150-450 [facility] Serum or plasma albumin sathish urement (mass/volume)Ordered By: Dr. Stark on 05-30-2022 Albumin [Mass/Vol] 3.5 g/dL 3.2-5.0 [facility] Serum or plasma albumin/glob ulin mass ratioOrdered By: Dr. Stark on 05-30-2022 Albumin/Globulin [Mass ratio] 1.1 {ratio} 0.9-2.4 [facility] Serum or plasma calcium sathish urement (mass/volume)Ordered By: Dr. Stark on 05-30-2022 Calcium [Mass/Vol] 8.6 mg/dL 8.5-10.1 [facility] Serum or plasma creatinine m easurement (mass/volume)Ordered By: Dr. Stark on 05-30-2022 Creatinine [Mass/Vol] 1.10 mg/dL 0.70-1.30 [facility] Comment on above: The validity of the calculated GFR & GFRAA in patients over 70 years has not been determined. Clinical correlation is essential. Serum or plasma urea nitroge n measurement (mass/volume)Ordered By: Dr. Stark on 05-30-2022 Urea nitrogen [Mass/Vol] 16 mg/dL 7-18 [facility] Thin prep Papanicolaou smear with manual screeningOrdered By: Dr. Stark on 05-30-2022 Thin prep Papanicolaou smear with manual screening 24 U/L 15-37 [facility] Thin prep Papanicolaou smear with manual screening 7 5-15 [facility] CTA CHEST (GATED) W IVCONon 05-13-2022 [facility] Basophil percentageOrdered B y: Dr. Jean on 03-24-2022 Chloride [Moles/Vol] 109 mmol/L 98-107 [facility] Glucose [Mass/Vol] 109 mg/dL 74-106 [facility] Comment on above: Fasting Glucose resu lt from 100 to 125 mg/dL suggests IMPAIRED HOMEOSTASIS per A.D.A. criteria. Potassium [Moles/Vol] 4.2 mmol/L 3.5-5.1 [facility] Sodium [Moles/Vol] 142 mmol/L 136-145 [facility] Laboratory - Chemistry and C hemistry - challengeOrdered By: Dr. Jean on 03-24-2022 CO2 [Moles/Vol] 28.0 mmol/L 21.0-32.0 [facility] Urea nitrogen/Creatinine [Mass ratio] 14.3 mg/mg 10-20 [facility] No Panel InformationOrdered By: Dr. Jean on 03-24-2022 Estimated Creatinine Clearance Calc 78.48 ml/min [facility] Estimated GFR (MDRD) Amer 97 mL/min >60 [facility] Comment on above: GFR Calc Estimated GFR (MDRD) Non-Af Amer 80 mL/min >60 [facility] Comment on above: Non- GFR Calc Serum or plasma calcium sathish urement (mass/volume)Ordered By: Dr. Jean on 03-24-2022 Calcium [Mass/Vol] 9.1 mg/dL 8.5-10.1 [facility] Serum or plasma creatinine m easurement (mass/volume)Ordered By: Dr. Jean on 03-24-2022 Creatinine [Mass/Vol] 1.05 mg/dL 0.70-1.30 [facility] Comment on above: The validity of the calculated GFR & GFRAA in patients over 70 years has not been determined. Clinical correlation is essential. Serum or plasma urea nitroge n measurement (mass/volume)Ordered By: Dr. Jean on 03-24-2022 Urea nitrogen [Mass/Vol] 15 mg/dL 7-18 [facility] Thin prep Papanicolaou smear with manual screeningOrdered By: Dr. Jean on 03-24-2022 Thin prep Papanicolaou smear with manual screening 5 5-15 [facility] Absolute lymphocyte countOrd ered By: Dr. Telles on 02-26-2022 Lymphocytes Auto (Unsp spec) [#/Vol] 1.02 10*3/uL 0.83-4.51 [facility] Basophil percentageOrdered B y: Dr. Telles on 02-26-2022 Basophils/100 WBC (Bld) 0.6 % 0-1 [facility] Chloride [Moles/Vol] 108 mmol/L 98-107 [facility] Eosinophils/100 WBC (Bld) 0.5 % 0-5 [facility] Glucose [Mass/Vol] 88 mg/dL 74-106 [facility] Neutrophils (Bld) [#/Vol] 4.6 10*3/uL 2.0-7.7 [facility] Neutrophils/100 WBC (Bld) 75.0 % 47-70 [facility] Potassium [Moles/Vol] 4.2 mmol/L 3.5-5.1 [facility] Sodium [Moles/Vol] 142 mmol/L 136-145 [facility] WBC (Bld) [#/Vol] 6.2 10*3/uL 4.4-11.0 [facility] Blood erythrocytes count (nu mber/volume)Ordered By: Dr. Telles on 02-26-2022 RBC (Bld) [#/Vol] 5.35 10*6/uL 4.6-6.2 [facility] Blood hemoglobin measurement (mass/volume)Ordered By: Dr. Telles on 02-26-2022 Hemoglobin (Bld) [Mass/Vol] 15.4 g/dL 13.0-16.5 [facility] Blood lymphocytes/100 leukoc ytesOrdered By: Dr. Telles on 02-26-2022 Lymphocytes/100 WBC (Bld) 16.6 % 19-41 [facility] Blood monocytes/100 leukocyt esOrdered By: Dr. Telles on 02-26-2022 Monocytes/100 WBC (Bld) 6.7 % 0-10 [facility] Blood platelet mean volumeOr dered By: Dr. Telles on 02-26-2022 Platelet mean volume (Bld) [Entitic vol] 10.7 fL 6.2-12.0 [facility] Determination of erythrocyte mean corpuscular volume (MCV)Ordered By: Dr. Telles on 02-26-2022 MCV (RBC) [Entitic vol] 84.9 fL 80-94 [facility] Hematocrit Auto (Bld) [Volum e fraction]Ordered By: Dr. Telles on 02-26-2022 Hematocrit (Bld) [Volume fraction] 45.4 % 40-54 [facility] Laboratory - Chemistry and C hemistry - challengeOrdered By: Dr. Telles on 02-26-2022 CO2 [Moles/Vol] 28.0 mmol/L 21.0-32.0 [facility] Lipase [Catalytic activity/Vol] 330 U/L 73-393 [facility] Urea nitrogen/Creatinine [Mass ratio] 13.4 mg/mg 10-20 [facility] Laboratory - Hematology and Cell countsOrdered By: Dr. Telles on 02-26-2022 Erythrocyte distribution width (RBC) [Entitic vol] 37.1 fL 35.1-43.9 [facility] Erythrocyte distribution width (RBC) [Ratio] 12.0 % 11.6-14.6 [facility] Immature granulocytes/100 WBC (Bld) 0.600 % 0.0-0.9 [facility] Comment on above: IG% - Immature Granu locytes (promyelocytes, myelocytes and metamyelocytes) > 1% indicates that a LEFT SHIFT is Present. MCH (RBC) [Entitic mass] 28.8 pg 27.0-32.0 [facility] Nucleated RBC/100 WBC (Bld) [Ratio] 0 % 0-5 [facility] MCHC Auto (RBC) [Mass/Vol]Or dered By: Dr. Telles on 02-26-2022 MCHC (RBC) [Mass/Vol] 33.9 g/dL 32-36 [facility] No Panel InformationOrdered By: Dr. Telles on 02-26-2022 Troponin I High Sensitivity 6 pg/mL 3.0-78.0 [facility] Comment on above: Please Note: New Ibeth t Units and Gender Specific Reference Ranges. For more information see Policy Stat Procedure [place] High Sensitivity Troponin (TNIH) and attachments. Estimated Creatinine Clearance Calc 84.96 ml/min [facility] Estimated GFR (MDRD) Amer 107 mL/min >60 [facility] Comment on above: GFR Calc Estimated GFR (MDRD) Non-Af Amer 88 mL/min >60 [facility] Comment on above: Non- GFR Calc Platelets bldOrdered By: Dr. Telles on 02-26-2022 Platelets (Bld) [#/Vol] 238 10*3/uL 150-450 [facility] Serum or plasma calcium sathish urement (mass/volume)Ordered By: Dr. Telles on 02-26-2022 Calcium [Mass/Vol] 9.2 mg/dL 8.5-10.1 [facility] Serum or plasma creatinine m easurement (mass/volume)Ordered By: Dr. Telles on 02-26-2022 Creatinine [Mass/Vol] 0.97 mg/dL 0.70-1.30 [facility] Comment on above: The validity of the calculated GFR & GFRAA in patients over 70 years has not been determined. Clinical correlation is essential. Serum or plasma urea nitroge n measurement (mass/volume)Ordered By: Dr. Telles on 02-26-2022 Urea nitrogen [Mass/Vol] 13 mg/dL 7-18 [facility] Thin prep Papanicolaou smear with manual screeningOrdered By: Dr. Telles on 02-26-2022 Thin prep Papanicolaou smear with manual screening 6 5-15 [facility] Laboratory - Microbiology an d Antimicrobial susceptibilityOrdered By: Dr. Stark on 02-20-2022 SARS-CoV-2 (COVID-19) RNA ENRRIQUE+probe Ql (Unsp spec) Not detected Not Detect [facility] Comment on above: Normal Reference Ran ge: Not DetectedMethod:(RT-PCR) real-time reverse transcriptase PCRLuminex myaNUMBER Instrument*The Food and Drug Administration (FDA) has issued an Emergency Use Authorization (EAU) for the myaNUMBER SARS-CoV-2 Assay for the rapid detection of the virus that causes COVID-19. This test has been validated, but the FDAs independent review of this validation is pending.*Negative results do not preclude infection and should not be used as the sole basis for treatment or patient management. Optimum specimen types and timing for peak viral levels during infections caused by SARS-CoV-2 have not been determined. Collection of multiple specimens from the same patient may be necessary to detect the virus. The possibility of a false negative result should be considered if the patient has clinical presentation or has had recent exposure. No Panel InformationOrdered By: Dr. Stark on 02-20-2022 Influenza Types A,B Direct FA (JUAN JOSE) [facility] RSV Ag EIAOrdered By: Dr. Giulia valencia on 02-20-2022 RSV Ag Immune stain Ql (Tiss) [facility] Absolute lymphocyte countOrd ered By: Dr. Stark on 02-19-2022 Lymphocytes Auto (Unsp spec) [#/Vol] 1.47 10*3/uL 0.83-4.51 [facility] Basophil percentageOrdered B y: Dr. Stark on 02-19-2022 Amylase [Catalytic activity/Vol] 71 U/L 25-115 [facility] Basophils/100 WBC (Bld) 0.4 % 0-1 [facility] Bilirubin [Mass/Vol] 0.70 mg/dL 0.20-1.00 [facility] Comment on above: For patients on eltr ombopag therapy, use of Dimension [place] TBIL is not recommended. Chloride [Moles/Vol] 108 mmol/L 98-107 [facility] Eosinophils/100 WBC (Bld) 0.7 % 0-5 [facility] Glucose [Mass/Vol] 83 mg/dL 74-106 [facility] Neutrophils (Bld) [#/Vol] 5.6 10*3/uL 2.0-7.7 [facility] Neutrophils/100 WBC (Bld) 73.2 % 47-70 [facility] Potassium [Moles/Vol] 3.7 mmol/L 3.5-5.1 [facility] Protein [Mass/Vol] 7.0 g/dL 6.4-8.2 [facility] Sodium [Moles/Vol] 141 mmol/L 136-145 [facility] WBC (Bld) [#/Vol] 7.7 10*3/uL 4.4-11.0 [facility] Blood erythrocytes count (nu mber/volume)Ordered By: Dr. Stark on 02-19-2022 RBC (Bld) [#/Vol] 5.38 10*6/uL 4.6-6.2 [facility] Blood hemoglobin measurement (mass/volume)Ordered By: Dr. Stark on 02-19-2022 Hemoglobin (Bld) [Mass/Vol] 15.6 g/dL 13.0-16.5 [facility] Blood lymphocytes/100 leukoc ytesOrdered By: Dr. Stark on 02-19-2022 Lymphocytes/100 WBC (Bld) 19.1 % 19-41 [facility] Blood monocytes/100 leukocyt esOrdered By: Dr. Stark on 02-19-2022 Monocytes/100 WBC (Bld) 5.9 % 0-10 [facility] Blood platelet mean volumeOr dered By: Dr. Stark on 02-19-2022 Platelet mean volume (Bld) [Entitic vol] 10.2 fL 6.2-12.0 [facility] Determination of erythrocyte mean corpuscular volume (MCV)Ordered By: Dr. Stark on 02-19-2022 MCV (RBC) [Entitic vol] 84.0 fL 80-94 [facility] Hematocrit Auto (Bld) [Volum e fraction]Ordered By: Dr. Stark on 02-19-2022 Hematocrit (Bld) [Volume fraction] 45.2 % 40-54 [facility] Laboratory - Chemistry and C hemistry - challengeOrdered By: Dr. Stark on 02-19-2022 ALP [Catalytic activity/Vol] 100 U/L 45-117 [facility] ALT [Catalytic activity/Vol] 26 U/L 16-61 [facility] CO2 [Moles/Vol] 26.0 mmol/L 21.0-32.0 [facility] Globulin (S) [Mass/Vol] 3.1 g/dL 2.2-4.2 [facility] Lipase [Catalytic activity/Vol] 96 U/L 73-393 [facility] Urea nitrogen/Creatinine [Mass ratio] 15.0 mg/mg 10-20 [facility] Laboratory - Hematology and Cell countsOrdered By: Dr. Stark on 02-19-2022 Erythrocyte distribution width (RBC) [Entitic vol] 37.0 fL 35.1-43.9 [facility] Erythrocyte distribution width (RBC) [Ratio] 12.2 % 11.6-14.6 [facility] Immature granulocytes/100 WBC (Bld) 0.700 % 0.0-0.9 [facility] Comment on above: IG% - Immature Granu locytes (promyelocytes, myelocytes and metamyelocytes) > 1% indicates that a LEFT SHIFT is Present. MCH (RBC) [Entitic mass] 29.0 pg 27.0-32.0 [facility] Nucleated RBC/100 WBC (Bld) [Ratio] 0 % 0-5 [facility] MCHC Auto (RBC) [Mass/Vol]Or dered By: Dr. Stark on 02-19-2022 MCHC (RBC) [Mass/Vol] 34.5 g/dL 32-36 [facility] No Panel InformationOrdered By: Dr. Stark on 02-19-2022 Estimated GFR (MDRD) Amer 95 mL/min >60 [facility] Comment on above: GFR Calc Estimated GFR (MDRD) Non-Af Amer 79 mL/min >60 [facility] Comment on above: Non- GFR Calc Platelets bldOrdered By: Dr. Stark on 02-19-2022 Platelets (Bld) [#/Vol] 266 10*3/uL 150-450 [facility] Serum or plasma albumin sathish urement (mass/volume)Ordered By: Dr. Stark on 02-19-2022 Albumin [Mass/Vol] 3.9 g/dL 3.2-5.0 [facility] Serum or plasma albumin/glob ulin mass ratioOrdered By: Dr. Stark on 02-19-2022 Albumin/Globulin [Mass ratio] 1.3 {ratio} 0.9-2.4 [facility] Serum or plasma calcium sathish urement (mass/volume)Ordered By: Dr. Stark on 02-19-2022 Calcium [Mass/Vol] 9.1 mg/dL 8.5-10.1 [facility] Serum or plasma creatinine m easurement (mass/volume)Ordered By: Dr. Stark on 02-19-2022 Creatinine [Mass/Vol] 1.07 mg/dL 0.70-1.30 [facility] Comment on above: The validity of the calculated GFR & GFRAA in patients over 70 years has not been determined. Clinical correlation is essential. Serum or plasma urea nitroge n measurement (mass/volume)Ordered By: Dr. Stark on 02-19-2022 Urea nitrogen [Mass/Vol] 16 mg/dL 7-18 [facility] Thin prep Papanicolaou smear with manual screeningOrdered By: Dr. Stark on 02-19-2022 Thin prep Papanicolaou smear with manual screening 16 U/L 15-37 [facility] Thin prep Papanicolaou smear with manual screening 7 5-15 [facility] Absolute lymphocyte countOrd ered By: Dr. Jean on 02-17-2022 Lymphocytes Auto (Unsp spec) [#/Vol] 1.85 10*3/uL 0.83-4.51 [facility] Basophil percentageOrdered B y: Dr. Jean on 02-17-2022 Basophils/100 WBC (Bld) 0.3 % 0-1 [facility] Chloride [Moles/Vol] 106 mmol/L 98-107 [facility] Eosinophils/100 WBC (Bld) 1.1 % 0-5 [facility] Glucose [Mass/Vol] 100 mg/dL 74-106 [facility] Comment on above: Fasting Glucose resu lt from 100 to 125 mg/dL suggests IMPAIRED HOMEOSTASIS per A.D.A. criteria. Neutrophils (Bld) [#/Vol] 4.9 10*3/uL 2.0-7.7 [facility] Neutrophils/100 WBC (Bld) 67.1 % 47-70 [facility] Potassium [Moles/Vol] 3.8 mmol/L 3.5-5.1 [facility] Sodium [Moles/Vol] 142 mmol/L 136-145 [facility] WBC (Bld) [#/Vol] 7.4 10*3/uL 4.4-11.0 [facility] Blood erythrocytes count (nu mber/volume)Ordered By: Dr. Jean on 02-17-2022 RBC (Bld) [#/Vol] 5.11 10*6/uL 4.6-6.2 [facility] Blood hemoglobin measurement (mass/volume)Ordered By: Dr. Jean on 02-17-2022 Hemoglobin (Bld) [Mass/Vol] 15.0 g/dL 13.0-16.5 [facility] Blood lymphocytes/100 leukoc ytesOrdered By: Dr. Jean on 02-17-2022 Lymphocytes/100 WBC (Bld) 25.2 % 19-41 [facility] Blood monocytes/100 leukocyt esOrdered By: Dr. Jean on 02-17-2022 Monocytes/100 WBC (Bld) 5.9 % 0-10 [facility] Blood platelet mean volumeOr dered By: Dr. Jean on 02-17-2022 Platelet mean volume (Bld) [Entitic vol] 10.1 fL 6.2-12.0 [facility] Determination of erythrocyte mean corpuscular volume (MCV)Ordered By: Dr. Jean on 02-17-2022 MCV (RBC) [Entitic vol] 84.9 fL 80-94 [facility] Hematocrit Auto (Bld) [Volum e fraction]Ordered By: Dr. Jean on 02-17-2022 Hematocrit (Bld) [Volume fraction] 43.4 % 40-54 [facility] Laboratory - Chemistry and C hemistry - challengeOrdered By: Dr. Jean on 02-17-2022 CO2 [Moles/Vol] 27.0 mmol/L 21.0-32.0 [facility] Urea nitrogen/Creatinine [Mass ratio] 13.3 mg/mg 10-20 [facility] Laboratory - Hematology and Cell countsOrdered By: Dr. Jean on 02-17-2022 Erythrocyte distribution width (RBC) [Entitic vol] 36.8 fL 35.1-43.9 [facility] Erythrocyte distribution width (RBC) [Ratio] 11.9 % 11.6-14.6 [facility] Immature granulocytes/100 WBC (Bld) 0.400 % 0.0-0.9 [facility] Comment on above: IG% - Immature Granu locytes (promyelocytes, myelocytes and metamyelocytes) > 1% indicates that a LEFT SHIFT is Present. MCH (RBC) [Entitic mass] 29.4 pg 27.0-32.0 [facility] Nucleated RBC/100 WBC (Bld) [Ratio] 0 % 0-5 [facility] MCHC Auto (RBC) [Mass/Vol]Or dered By: Dr. Jean on 02-17-2022 MCHC (RBC) [Mass/Vol] 34.6 g/dL 32-36 [facility] No Panel InformationOrdered By: Dr. Jean on 02-17-2022 Estimated Creatinine Clearance Calc 61.04 ml/min [facility] Estimated GFR (MDRD) Amer 73 mL/min >60 [facility] Comment on above: GFR Calc Estimated GFR (MDRD) Non-Af Amer 60 mL/min >60 [facility] Comment on above: Non- GFR Calc Troponin I High Sensitivity 4 pg/mL 3.0-78.0 [facility] Comment on above: Please Note: New Ibeth t Units and Gender Specific Reference Ranges. For more information see Policy Stat Procedure [place] High Sensitivity Troponin (TNIH) and attachments. Platelets bldOrdered By: Dr. Jean on 02-17-2022 Platelets (Bld) [#/Vol] 265 10*3/uL 150-450 [facility] Serum or plasma calcium sathish urement (mass/volume)Ordered By: Dr. Jean on 02-17-2022 Calcium [Mass/Vol] 9.0 mg/dL 8.5-10.1 [facility] Serum or plasma creatinine m easurement (mass/volume)Ordered By: Dr. Jean on 02-17-2022 Creatinine [Mass/Vol] 1.35 mg/dL 0.70-1.30 [facility] Comment on above: The validity of the calculated GFR & GFRAA in patients over 70 years has not been determined. Clinical correlation is essential. Serum or plasma urea nitroge n measurement (mass/volume)Ordered By: Dr. Jaen on 02-17-2022 Urea nitrogen [Mass/Vol] 18 mg/dL 7-18 [facility] Thin prep Papanicolaou smear with manual screeningOrdered By: Dr. Jean on 02-17-2022 Thin prep Papanicolaou smear with manual screening 9 5-15 [facility] Absolute lymphocyte counton 12-15-2021 Lymphocytes Auto (Unsp spec) [#/Vol] 1.45 10*3/uL 0.83-4.51 [facility] Work Phone: Basophil percentageon 2021 Basophils/100 WBC (Bld) 0.4 % 0-1 [facility] Work Phone: Chloride [Moles/Vol] 111 mmol/L 98-107 [facility] Work Phone: Eosinophils/100 WBC (Bld) 1.1 % 0-5 [facility] Work Phone: Glucose [Mass/Vol] 93 mg/dL 74-106 [facility] Work Phone: Neutrophils (Bld) [#/Vol] 5.3 10*3/uL 2.0-7.7 [facility] Work Phone: Neutrophils/100 WBC (Bld) 72.2 % 47-70 [facility] Work Phone: Potassium [Moles/Vol] 4.1 mmol/L 3.5-5.1 [facility] Work Phone: Sodium [Moles/Vol] 142 mmol/L 136-145 [facility] Work Phone: WBC (Bld) [#/Vol] 7.4 10*3/uL 4.4-11.0 [facility] Work Phone: Blood erythrocytes count (nu mber/volume)on 12-15-2021 RBC (Bld) [#/Vol] 4.85 10*6/uL 4.6-6.2 [facility] Work Phone: [phone] Blood hemoglobin measurement (mass/volume)on 12-15-2021 Hemoglobin (Bld) [Mass/Vol] 14.7 g/dL 13.0-16.5 [facility] Work Phone: Blood lymphocytes/100 leukoc yteson 12-15-2021 Lymphocytes/100 WBC (Bld) 19.6 % 19-41 [facility] Work Phone: Blood monocytes/100 leukocyt eson 12-15-2021 Monocytes/100 WBC (Bld) 6.4 % 0-10 [facility] Work Phone: Blood platelet mean volumeon 12-15-2021 Platelet mean volume (Bld) [Entitic vol] 10.3 fL 6.2-12.0 [facility] Work Phone: [phone] Determination of erythrocyte mean corpuscular volume (MCV)on 12-15-2021 MCV (RBC) [Entitic vol] 84.9 fL 80-94 [facility] Work Phone: Hematocrit Auto (Bld) [Volum e fraction]on 12-15-2021 Hematocrit (Bld) [Volume fraction] 41.2 % 40-54 [facility] Work Phone: [phone] Laboratory - Chemistry and C hemistry - challengeon 12-15-2021 CO2 [Moles/Vol] 26.0 mmol/L 21.0-32.0 [facility] Work Phone: [phone] Urea nitrogen/Creatinine [Mass ratio] 17.1 mg/mg 10-20 [facility] Work Phone: Laboratory - Hematology and Cell countson 12-15-2021 Erythrocyte distribution width (RBC) [Entitic vol] 36.7 fL 35.1-43.9 [facility] Work Phone: Erythrocyte distribution width (RBC) [Ratio] 11.9 % 11.6-14.6 [facility] Work Phone: Immature granulocytes/100 WBC (Bld) 0.300 % 0.0-0.9 [facility] Work Phone: Comment on above: IG% - Immature Granu locytes (promyelocytes, myelocytes and metamyelocytes) > 1% indicates that a LEFT SHIFT is Present. MCH (RBC) [Entitic mass] 30.3 pg 27.0-32.0 [facility] Work Phone: Nucleated RBC/100 WBC (Bld) [Ratio] 0 % 0-5 [facility] Work Phone: MCHC Auto (RBC) [Mass/Vol]on 12-15-2021 MCHC (RBC) [Mass/Vol] 35.7 g/dL 32-36 [facility] Work Phone: No Panel Informationon 12-15 Estimated Creatinine Clearance Calc 74.24 ml/min [facility] Work Phone: Estimated GFR (MDRD) Amer 91 mL/min >60 [facility] Work Phone: Comment on above: GFR Calc Estimated GFR (MDRD) Non-Af Amer 75 mL/min >60 [facility] Work Phone: Comment on above: Non- GFR Calc Troponin I High Sensitivity 6 pg/mL 3.0-78.0 [facility] Work Phone: Comment on above: Please Note: New Ibeth t Units and Gender Specific Reference Ranges. For more information see Policy Stat Procedure [place] High Sensitivity Troponin (TNIH) and attachments. Platelets bldon 12-15-2021 Platelets (Bld) [#/Vol] 225 10*3/uL 150-450 [facility] Work Phone: Serum or plasma calcium sathish urement (mass/volume)on 12-15-2021 Calcium [Mass/Vol] 8.9 mg/dL 8.5-10.1 [facility] Work Phone: Serum or plasma creatinine m easurement (mass/volume)on 12-15-2021 Creatinine [Mass/Vol] 1.11 mg/dL 0.70-1.30 [facility] Work Phone: Comment on above: The validity of the calculated GFR & GFRAA in patients over 70 years has not been determined. Clinical correlation is essential. Serum or plasma urea nitroge n measurement (mass/volume)on 12-15-2021 Urea nitrogen [Mass/Vol] 19 mg/dL 7-18 [facility] Work Phone: Thin prep Papanicolaou smear with manual screeningon 12-15-2021 Thin prep Papanicolaou smear with manual screening 5 5-15 [facility] Work Phone: Absolute lymphocyte counton 11-29-2021 Lymphocytes Auto (Unsp spec) [#/Vol] 1.39 10*3/uL 0.83-4.51 [facility] Work Phone: Basophil percentageon 2021 Basophils/100 WBC (Bld) 0.5 % 0-1 [facility] Work Phone: Bilirubin [Mass/Vol] 0.70 mg/dL 0.20-1.00 [facility] Work Phone: Comment on above: For patients on eltr ombopag therapy, use of Dimension [place] TBIL is not recommended. Chloride [Moles/Vol] 110 mmol/L 98-107 [facility] Work Phone: Eosinophils/100 WBC (Bld) 1.8 % 0-5 [facility] Work Phone: Glucose [Mass/Vol] 104 mg/dL 74-106 [facility] Work Phone: Comment on above: Fasting Glucose resu lt from 100 to 125 mg/dL suggests IMPAIRED HOMEOSTASIS per A.D.A. criteria. Neutrophils (Bld) [#/Vol] 3.5 10*3/uL 2.0-7.7 [facility] Work Phone: Neutrophils/100 WBC (Bld) 63.9 % 47-70 [facility] Work Phone: Potassium [Moles/Vol] 4.5 mmol/L 3.5-5.1 [facility] Work Phone: Protein [Mass/Vol] 6.9 g/dL 6.4-8.2 [facility] Work Phone: Sodium [Moles/Vol] 142 mmol/L 136-145 [facility] Work Phone: WBC (Bld) [#/Vol] 5.5 10*3/uL 4.4-11.0 [facility] Work Phone: Blood erythrocytes count (nu mber/volume)on 11-29-2021 RBC (Bld) [#/Vol] 5.30 10*6/uL 4.6-6.2 [facility] Work Phone: Blood hemoglobin measurement (mass/volume)on 11-29-2021 Hemoglobin (Bld) [Mass/Vol] 15.4 g/dL 13.0-16.5 [facility] Work Phone: Blood lymphocytes/100 leukoc yteson 11-29-2021 Lymphocytes/100 WBC (Bld) 25.4 % 19-41 [facility] Work Phone: Blood monocytes/100 leukocyt eson 11-29-2021 Monocytes/100 WBC (Bld) 8.0 % 0-10 [facility] Work Phone: Blood platelet mean volumeon 11-29-2021 Platelet mean volume (Bld) [Entitic vol] 11.0 fL 6.2-12.0 [facility] Work Phone: [phone] Determination of erythrocyte mean corpuscular volume (MCV)on 11-29-2021 MCV (RBC) [Entitic vol] 85.7 fL 80-94 [facility] Work Phone: Hematocrit Auto (Bld) [Volum e fraction]on 11-29-2021 Hematocrit (Bld) [Volume fraction] 45.4 % 40-54 [facility] Work Phone: [phone] Laboratory - Chemistry and C hemistry - challengeon 11-29-2021 ALP [Catalytic activity/Vol] 101 U/L 45-117 [facility] Work Phone: ALT [Catalytic activity/Vol] 27 U/L 16-61 [facility] Work Phone: CO2 [Moles/Vol] 28.0 mmol/L 21.0-32.0 [facility] Work Phone: Globulin (S) [Mass/Vol] 3.2 g/dL 2.2-4.2 [facility] Work Phone: [phone] Urea nitrogen/Creatinine [Mass ratio] 16.2 mg/mg 10-20 [facility] Work Phone: Laboratory - Hematology and Cell countson 11-29-2021 Erythrocyte distribution width (RBC) [Entitic vol] 37.5 fL 35.1-43.9 [facility] Work Phone: Erythrocyte distribution width (RBC) [Ratio] 11.9 % 11.6-14.6 [facility] Work Phone: [phone] Immature granulocytes/100 WBC (Bld) 0.400 % 0.0-0.9 [facility] Work Phone: [phone] Comment on above: IG% - Immature Granu locytes (promyelocytes, myelocytes and metamyelocytes) > 1% indicates that a LEFT SHIFT is Present. MCH (RBC) [Entitic mass] 29.1 pg 27.0-32.0 [facility] Work Phone: [phone] Nucleated RBC/100 WBC (Bld) [Ratio] 0 % 0-5 [facility] Work Phone: MCHC Auto (RBC) [Mass/Vol]on 11-29-2021 MCHC (RBC) [Mass/Vol] 33.9 g/dL 32-36 [facility] Work Phone: No Panel Informationon 11-29 Estimated GFR (MDRD) Amer 91 mL/min >60 [facility] Work Phone: Comment on above: GFR Calc Estimated GFR (MDRD) Non-Af Amer 75 mL/min >60 [facility] Work Phone: Comment on above: Non- GFR Calc Thyroid Stimulating Hormone (TSH) 2.17 uIU/mL 0.358-3.74 [facility] Work Phone: Platelets bldon 11-29-2021 Platelets (Bld) [#/Vol] 234 10*3/uL 150-450 [facility] Work Phone: Serum or plasma albumin sathish urement (mass/volume)on 11-29-2021 Albumin [Mass/Vol] 3.7 g/dL 3.2-5.0 [facility] Work Phone: Serum or plasma albumin/glob ulin mass ratioon 11-29-2021 Albumin/Globulin [Mass ratio] 1.2 {ratio} 0.9-2.4 [facility] Work Phone: Serum or plasma calcium sathish urement (mass/volume)on 11-29-2021 Calcium [Mass/Vol] 9.1 mg/dL 8.5-10.1 [facility] Work Phone: Serum or plasma creatinine m easurement (mass/volume)on 11-29-2021 Creatinine [Mass/Vol] 1.11 mg/dL 0.70-1.30 [facility] Work Phone: Comment on above: The validity of the calculated GFR & GFRAA in patients over 70 years has not been determined. Clinical correlation is essential. Serum or plasma urea nitroge n measurement (mass/volume)on 11-29-2021 Urea nitrogen [Mass/Vol] 18 mg/dL -18 [facility] Work Phone: Thin prep Papanicolaou smear with manual screeningon 11-29-2021 Thin prep Papanicolaou smear with manual screening 20 U/L 15-37 [facility] Work Phone: Thin prep Papanicolaou smear with manual screening 4 5-15 [facility] Work Phone: CTA C/A/P (NONGATED) WO/W IV CONon 05-30-2021 CTA C/A/P (NONGATED) WO/W IVCON * * *Final Report* * * DATE OF EXAM: May 30 2021 1:43PM [facility] 0132 - CTA C/A/P (NONGATED) WO/W IVCON / PROCEDURE REASON: multiple diagnoses * * * * Physician Interpretation * * * * Examination: CTA chest, CTA abdomen and pelvis dated 05/30/2021 1:43 PM. Comparison: None History: 45 years old Male with history of dissection and Redo median sternotomy in 2019, right axillary artery cannulation, aortic root replacement with reimplantation of the coronary ?arteries and aortic valve with a 27-mm Inspiris bioprosthetic valve and 30 mm ?Valsalva graft, ascending and total arch replacement with a 28 mm Dacron graft and ?direct placement of a 28 mm x 10 cm Relay thoracic stent graft with fenestration and stent grafting of the left subclavian artery with covered stent, stent graft in the left common carotid artery with a 10 mm x ?2.5 cm covered stent, dissection of the left common carotid artery and dissection of ?the left subclavian artery, repair of dissected left subclavian and left common ?carotid arteries. Here for follow-up Technique: Multi-detector CT technology was employed (Siemens Definition scanner ). Spiral imaging was performed prior to, and following the IV administration of contrast material. In addition, delayed imaging was performed. A low-osmolar contrast agent was used (120 cc of Omnipaque 350). CT Dose-Length Product (DLP): [address] Dose Reduction Employed: Automated exposure control (AEC) For optimization of anatomic evaluation, multiplanar reconstruction, maximum intensity projections, and advanced 3-D off-line postprocessing were performed on a dedicated stand-alone workstation by the interpreting physician. RESULT: Potential study limitations: None. CHEST: The chest wall is remarkable for remote median sternotomy. There is no significant adenopathy noted in the axillae, mediastinum, and antony. The pericardium and pulmonary arteries appear normal. Lung windows reveal no acute abnormalities. There is no abnormal pulmonary parenchymal mass, infiltrate, or pleural effusion. The cardiac chambers demonstrate normal atrioventricular and ventriculoarterial concordance, and systemic and pulmonary venous return. The cardiac chamber sizes are normal. The coronary arteries have been reimplanted. There are no distinct coronary calcifications identified, though this study was not optimized for coronary artery evaluation. VASCULAR WITH ADVANCED 3-D OFF-LINE POSTPROCESSING: Status post aortic valve placement with a bioprosthetic valve as part of a bio Bentall. Status post ascending aorta and arch repair and frozen elephant trunk procedure. Patent stents in the left common carotid artery with proximal crimping and proximal left subclavian artery. There is a dissection is seen distally to the carotid and subclavian stents. A frozen elephant trunk with stent is within the true lumen and ends in the proximal descending thoracic aorta. Residual dissection flap is seen in the descending thoracic aorta extending into the right common iliac artery. Concert Manager dimensions of the thoracic aorta are as follows: 4.0 cm at the proximal descending thoracic aorta 3.0 cm at the diaphragmatic hiatus The abdominal aorta measures: 2.9 cm at the supramesenteric segment 2.4 cm at the renal segment 2.3 cm at the mid infrarenal segment 2.7 cm at the aortic bifurcation The celiac axis, SMA, and ANNE are patent. There are single renal arteries bilaterally, both of which appear patent. The pelvic arteries are tortuous, but otherwise normal in caliber and contour. ABDOMEN: Small liver cysts. The gallbladder, spleen, and pancreas appear normal. The adrenal glands appear normal. Both kidneys are normal in size, shape, and density. There is no abnormal mass or hydronephrosis. PELVIS: There is no significant retroperitoneal adenopathy. No free fluid or free air within the abdomen or pelvis. The bowel appears unremarkable on this non-GI contrast examination except for diverticulosis. The urinary bladder appears normal. There are scattered phleboliths within the deep pelvis. IMPRESSION: 1. Aortic dissection status post bio Bentall and frozen elephant trunk procedure. No surgical complications.. 2. Patent stents in the left common carotid artery and left subclavian artery. There is crimping at the ostium of the left carotid stent. Residual dissection flap is seen distal to the carotid and subclavian stents. 3. Residual dissection in the thoracoabdominal aorta. No evidence of organ malperfusion. Conduit Reamer Operator: CHARLIE Transcribe Date/Time: May 30 2021 2:26P Dictated by : NILS ENGLE MD This examination was interpreted and the report reviewed and electronically signed by: NILS ENGLE MD on May 30 2021 2:52PM EST [id number] [facility] 01-07-2018 CNOV Office Visit (AGVASACC) ---------BECK FRAGA ([id number]) 1975 MDate Time Provider Department01/07/18 10:30 AM DHEREAJ VACA During your visit today, we recorded the following information about you: Pulse Respiration Blood pressure Weight 68/minute 16/minute 118/70 83 kg Height 1.727 Lila Kebede APRN.CNP, APRN.CNP 01/07/2018 11:58 AM SignedWe have reviewed your films and reports, we suspect that you might need surgeryagain in the future to address the aortic root anneurysm, with question ofpossible re-replace on your tissue valve that was placed previously.We will request your OP note from [facility] will refer [facility] for furtherevaluation/consultat ion.Please contact us if you have any concerns/questions.[phone] Vaca MD 01/07/2018 12:12 PM SignedPaking Fraga is a 42-year-old man referred for evaluation of his thoracicaorta following repair of a type A dissection in 2013 which involved aorticvalve replacement with a bioprosthesis and resection replacement of theascending aorta. He's recently been evaluated for some dizziness by Dr. Bailey the electro- service; no pathologies were identified but he is referred tous for further evaluation.He had his acute type A dissection 2013. The aortic valve was replaced with abioprosthesis. By CT appears that the ascending aorta was repaired but the rootwas left intact. 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 He is known to have chronicdissection of the arch, carotid arteries, descending thoracic and abdominalaorta. [facility] shows stable chronic dissection involving the innominateartery, left common carotid artery, left subclavian artery, and descendingthoracic and abdominal aorta with stable dilatation. Of interest, the reportdoes not mention the size or configuration of the aortic root.His most [facility] doesshow a normal functioning bioprosthesis aortic position normal left ventricularfunction.REVIEW OF SYSTEMS:GENERAL:Fever - NoChills - NoNight sweats - NoChanges in weight - NoNEUROLOGICAL:Headaches - NoSeizures - NoPassing out - NoHistory of stroke or mini-stroke - NoHead injury or trauma - NoNumbness, tingling or sensation of pins and needles - NoHEAD, EYES, EARS, NOSE, AND THROAT:Changes in hearing - NoChanges in vision - NoNose bleeds - NoCARDIOVASCULAR:Chest pain or pressure - NoPalpitations - NoValvular heart disease - YesHigh blood pressure - NoIrregular heart rate - NoHeart attack - NoHeart failure - NoHigh Cholesterol - NoHistory of rheumatic fever - NoHistory of Scarlet fever - NoHistory of atrial fibrillation - NoRESPIRATORY:Cough - NoWheezing - NoShortness of breath - NoShortness of breath with exertion - NoCoughing up blood - NoAsthma - NoBronchitis - NoBlood clot in your lung - NoGASTROINTESTINAL:Abdomina l discomfort - NoNausea - NoVomiting - NoDiarrhea - NoConstipation - NoDifficulty swallowing - NoPain with swallowing - NoStomach pain after eating - NoPassing blood with bowel movement - NoBlack tarry stool - NoHistory of stomach ulcers - NoAcid reflux or heartburn - NoGENITOURINARY: GENITOURINARY:EXTREMITY:Wesley ma (swelling) - NoIntermittent claudication (pain with walking) - NoMUSCULOSKELETAL:Joint pain - NoJoint swelling - NoBack pain - NoMuscle pain or ache - NoSkin:Rash - NoLesions - NoSores - NoUlcers - NoTenderness - NoSkin cancer - NoHEMATOLOGY:Bleeding disorder - NoEasy bruising - NoAnemia - NoCancer - NoBlood transfusions - NoBlood clots - NoENDOCRINE:Diabetes - NoThyroid disorder - NoPSYCHOLOGICAL:Depression - NoAnxiety - NoOTHER:Status post type A dissection repair; status post aVR with prosthesis; rightCVA with left repair since.PAST MEDICAL HISTORYDiagnosis Date- Aortic aneurysm (HCC)- Aortic dissection (HCC)- Carotid artery dissection (HCC)- Dizziness- GERD (gastroesophageal reflux disease)- History of spinal cord injury- Migraine- Pleuritis- Seizures (HCC)- [facility])- Vasovagal syncopePAST SURGICAL HISTORYProcedure Laterality Date- APPENDECTOMY age 11- CAROTID ULTRASOUND DUPLEX 07/17/2017- ECHOCARDIOGRAM 08/03/2014- HEART VALVE REPLACEMENT 02/2014 Aortic valve / by Dr. Mae at [facility]- INCISION EARDRUM,ASPIR,GEN ANESTH age 4 Myringotomy/tubes- TILT TABLE TEST 07/22/2017- VASECTOMY 02/10/09Current Outpatient Prescriptions on File Prior to Visit:Melatonin 5 mg cap Take 1 capsule by mouth as needed.clopidogrel (PLAVIX) 75 mg tablet Take 75 mg by mouth once daily.metoprolol succinate ER (TOPROL XL) 25 mg 24 hr tablet Take 25 mg by mouth oncedaily.aspirin 81 mg chewable tablet Take 81 mg by mouth once daily.pantoprazole DR (PROTONIX) 20 mg tablet Take 20 mg by mouth once daily.atorvastatin (LIPITOR) 10 mg tabletNo current facility-administered medications on file prior to visit.I have reviewed CT of Chest and Recent echo report..On my review of the CT of the chest performed in 2014, and the current CT Ican see evidence of the previous resection replacement of the proximal to midascending aorta. A bioprosthesis is in position. There is however a significantaneurysmal dilatation of the sinuses. I think that has enlarged over time. [id number] measured approximately 4.8 cm; on the current CT I believe the maximumdimension is 5.4 m.On examination, he appears well and is breathing comfortably. Vitals signs areBP 118/70 Pulse 68 Resp 16 Ht 5' 8 (1.727 m) Wt 183 lb (83 kg) SpO2 97% BMI 27.83 kg/m? . There is no JVD. No cervical or supraclavicularadenopathy is palpated. The chest is symmetrical without deformity. Breathsounds are clear bilaterally. There is well-healed midline sternotomy incision.The cardiac rhythm is regular. A soft systolic murmur is heard across theprecordium. The carotid, subclavian, and radial pulses are 2+ and equalbilaterally. The abdomen is soft and non-tender. There are no abdominal masses.There is no hepatojugular reflux. There is no pretibial edema. There is noclubbing or cyanosis.In summary,name is a 42-year-old man who is status post acute type A dissectioninto is 13 requiring repair which involved aortic valve replacement with abioprosthesis resection and replacement of the ascending aorta. He has aresidual aneurysm disease in the root. He has residual chronic dissectioninvolving the arch, carotid arteries, and descending aorta. I believe that theroot aneurysm may be enlarging over time. It is over 5 cm in size. I informedhim that this will ultimately need to be replaced. I would think thatconsideration will be made to surgery involving root replacement with amechanical valve conduit with attention paid to the chronic dissection in thedescending aorta as well. That being the case, I'm [facility], Dr. Thorpe. He wishes to pursue this consult. Melanie try to obtain the operative note from the [employer] system in the meantime.Dheeraj Vaca, SERGEYefdarrell Provider: TORRI DOWNS [[id number]]Allergies As of Date: 01/07/2018 Noted Allergy ReactionPERCOCET (OXYCODONE-ACETAMINOPHEN) 12 - Shortness of BreathDate Reviewed: 01/07/2018Reviewed by: Sabina Browning LPN - Fully AssessedReason for Visit: New Patient Evaluation [154] Cmt: Rfd by Dr. 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 ALPRAZOLAM 0.25 MG TABLET Take 0.25 mg by mouth as need* MULTIVITAMIN CAPSULE Take 1 capsule by mouth once * MELATONIN 5 MG CAPSULE Take 1 capsule by mouth as ne* CLOPIDOGREL 75 MG TABLET Take 75 mg by mouth once brenda* METOPROLOL SUCCINATE ER 25 MG* Take 25 mg by mouth once brenda* ASPIRIN 81 MG CHEWABLE TABLET Take 81 mg by mouth once brenda* PANTOPRAZOLE 20 MG TABLET,DEL* Take 20 mg by mouth once brenda* ATORVASTATIN 10 MG TABLETProblem List As Of Date 01/07/2018 Noted Resolved Sterilization [Z30.2] INVALID FOR* Vasovagal syncope [R55] H/O repair of dissecting thoracic aneurysm [Z98*INVALID FOR* Other instructions from your clinician: We have reviewed your films and reports, we suspect that you might need surgery again in the future to address the aortic root anneurysm, with question of possible re-replace on your tissue valve that was placed previously. We will request your OP note from [facility] We will refer you to Dr[facility] Thor[facility] in [facility] for further evaluation/consultation. Please contact us if you have any concerns/questions. [phone] of Service: NEW PATIENT VISIT LEVEL 4 [[id number]]Letter TextEncounter Number: [id number] Status:Closed by DHEERAJ VACA MD on 01/07/18 [facility] HISTORY PHYSICALon HISTORY PHYSICAL HNO ID: [id number] thor: Dheeraj Kat: (none)Author Type: PhysicianType: HANDPFiled: 01/07/2018 12:12 PMNote Text:Beck Fraga is a 42-year-old man referred for evaluation of his thoracicaorta following repair of a type A dissection in 2013 which involvedaortic valve replacement with a bioprosthesis and resection replacement ofthe ascending aorta. He's recently been evaluated for some dizziness byDr. Sampsonon of the electro- service; no pathologies were identified but heis referred to us for further evaluation.He had his acute type A dissection 2013. The aortic valve was replacedwith a bioprosthesis. By CT appears that the ascending aorta was repairedbut the root was left intact. His postoperative course was notable for adelayed CVA resulting in left upper extremity paresis. He is known to havechronic dissection of the arch, carotid arteries, descending thoracic andabdominal aorta. His most recent CT of the chest [facility] at [facility] on May 16, 2017 shows stable chronic dissection involving theinnominate artery, left common carotid artery, left subclavian artery, anddescending thoracic and abdominal aorta with stable dilatation. Ofinterest, the report does not mention the size or configuration of theaortic root.His most recent echocardiogram performed this year at [facility] show a normal functioning bioprosthesis aortic position normal leftventricular function.REVIEW OF SYSTEMS:GENERAL:Fever - NoChills - NoNight sweats - NoChanges in weight - NoNEUROLOGICAL:Headaches - NoSeizures - NoPassing out - NoHistory of stroke or mini-stroke - NoHead injury or trauma - NoNumbness, tingling or sensation of pins and needles - NoHEAD, EYES, EARS, NOSE, AND THROAT:Changes in hearing - NoChanges in vision - NoNose bleeds - NoCARDIOVASCULAR:Chest pain or pressure - NoPalpitations - NoValvular heart disease - YesHigh blood pressure - NoIrregular heart rate - NoHeart attack - NoHeart failure - NoHigh Cholesterol - NoHistory of rheumatic fever - NoHistory of Scarlet fever - NoHistory of atrial fibrillation - NoRESPIRATORY:Cough - NoWheezing - NoShortness of breath - NoShortness of breath with exertion - NoCoughing up blood - NoAsthma - NoBronchitis - NoBlood clot in your lung - NoGASTROINTESTINAL:Abdomina l discomfort - NoNausea - NoVomiting - NoDiarrhea - NoConstipation - NoDifficulty swallowing - NoPain with swallowing - NoStomach pain after eating - NoPassing blood with bowel movement - NoBlack tarry stool - NoHistory of stomach ulcers - NoAcid reflux or heartburn - NoGENITOURINARY: GENITOURINARY:EXTREMITY:Wesley ma (swelling) - NoIntermittent claudication (pain with walking) - NoMUSCULOSKELETAL:Joint pain - NoJoint swelling - NoBack pain - NoMuscle pain or ache - NoSkin:Rash - NoLesions - NoSores - NoUlcers - NoTenderness - NoSkin cancer - NoHEMATOLOGY:Bleeding disorder - NoEasy bruising - NoAnemia - NoCancer - NoBlood transfusions - NoBlood clots - NoENDOCRINE:Diabetes - NoThyroid disorder - NoPSYCHOLOGICAL:Depression - NoAnxiety - NoOTHER:Status post type A dissection repair; status post aVR with prosthesis;right CVA with left repair since.PAST MEDICAL HISTORYDiagnosis Date- Aortic aneurysm (HCC)- Aortic dissection (HCC)- Carotid artery dissection (HCC)- Dizziness- GERD (gastroesophageal reflux disease)- History of spinal cord injury- Migraine- Pleuritis- Seizures (HCC)- Stroke (HCC)- Vasovagal syncopePAST SURGICAL HISTORYProcedure Laterality Date- APPENDECTOMY age 11- CAROTID ULTRASOUND DUPLEX 07/17/2017- ECHOCARDIOGRAM 08/03/2014- HEART VALVE REPLACEMENT 02/2014 Aortic valve / by Dr. Mae at [facility]- INCISION EARDRUM,ASPIR,GEN ANESTH age 4 Myringotomy/tubes- TILT TABLE TEST 07/22/2017- VASECTOMY 02/10/09Current Outpatient Prescriptions on File Prior to Visit:Melatonin 5 mg cap Take 1 capsule by mouth as needed.clopidogrel (PLAVIX) 75 mg tablet Take 75 mg by mouth once daily.metoprolol succinate ER (TOPROL XL) 25 mg 24 hr tablet Take 25 mg by mouthonce daily.aspirin 81 mg chewable tablet Take 81 mg by mouth once daily.pantoprazole DR (PROTONIX) 20 mg tablet Take 20 mg by mouth once daily.atorvastatin (LIPITOR) 10 mg tabletNo current facility-administered medications on file prior to visit.I have reviewed CT of Chest and Recent echo report..On my review of the CT of the chest performed in 2014, and the current CTI can see evidence of the previous resection replacement of the proximalto mid ascending aorta. A bioprosthesis is in position. There is however asignificant aneurysmal dilatation of the sinuses. I think that hasenlarged over time. In 2014 measured approximately 4.8 cm; on the currentCT I believe the maximum dimension is 5.4 m.On examination, he appears well and is breathing comfortably. Vitalssigns are BP 118/70 Pulse 68 Resp 16 Ht 5' 8 (1.727 m) Wt 183lb (83 kg) SpO2 97% BMI 27.83 kg/m? . There is no JVD. No cervicalor supraclavicular adenopathy is palpated. The chest is symmetricalwithout deformity. Breath sounds are clear bilaterally. There iswell-healed midline sternotomy incision. The cardiac rhythm is regular. Asoft systolic murmur is heard across the precordium. The carotid,subclavian, and radial pulses are 2+ and equal bilaterally. The abdomen issoft and non-tender. There are no abdominal masses. There is nohepatojugular reflux. There is no pretibial edema. There is no clubbingor cyanosis.In summary,name is a 42-year-old man who is status post acute type Adissection into is 14 requiring repair which involved aortic valvereplacement with a bioprosthesis resection and replacement of theascending aorta. He has a residual aneurysm disease in the root. He hasresidual chronic dissection involving the arch, carotid arteries, anddescending aorta. I believe that the root aneurysm may be enlarging overtime. It is over 5 cm in size. I informed him that this will ultimatelyneed to be replaced. I would think that consideration will be made tosurgery involving root replacement with a mechanical valve conduit withattention paid to the chronic dissection in the descending aorta as well.That being the case, I'm recommending referral to the aortic center [facility], Dr. Thorpe. He wishes to pursue this consult. We will try toobtain the operative note from the [employer] system in the meantime.Dheeraj Vaca MD [facility] CNOVon 12-18-2017 CNOV Office Visit (AGCARDPHRA) BECK FRAGA ([id number]) 1975 MDate Time Provider Department12/18/17 11:00 AM TORRI DOWNS During your visit today, we recorded the following information about you: Pulse Respiration Blood pressure Weight 70/minute 16/minute 140/80 81.6 kg Height 1.727 Abby Nichols CMA 12/18/2017 10:51 AM SignedPatient denies any cardiac complaints today.Jaida Vidal DO 12/18/2017 12:12 PM SignedPRIMARY CARE PHYSICIAN:Nguyễn Stark MD[address] [address]Rzysp: [phone]: [phone] PHYSICIAN:Jazmin Ortiz MD ([facility])[address] [place] [id number] COMPLAINT:dizzinessHISTORY OF PRESENT ILLNESS:Mr. Fraga is a 42 year old male who presents today for evaluation of vasovagalsymptoms. Beck had been life flighted from [facility] to [facility] [id number] with a dissection of his thoracic aorta, he underwent emergency surgery byDr. Benitez and had a bioprosthetic AVR and repiar of his asscending aortafor a type A dissection. He states he was told that his was due to a bicuspidvalve and he had genetic testing for familial aortopathies and no familyhistory of similar. He also has a chronic dissection (in Dr. Benitez'snote from April 2017 it reports right side[facility] car[facility], left subclavian and left vertebralartery). Beck had a stroke in 2013 associated with the dissection withinvolvement of his right basal ganglia and right anterolateral frontal lobe.He had been having positionally related dizziness, if he stands suddenly orbends over and stands, or with prolonged standing. He reports these symptomshave improved and denies having had recurrences in the last couple of months,he states largely due to avoiding these position changes. He denies a historyof syncope. He had seen Dr. Benitez in response to these symptoms ofdizziness in April, he had had a repeat CT of his chest and was told it wasstable and he had had an echo 03-21-2017 and his LVEF was 60% and peak AVgradient 36 mmHg and mean 18mmHg. He was referred to neurology and has beenseen by Dr. Ortiz. He had a tilt test in August which did not provoke syncope andhis HR and BP response were normal, though he did develop symptoms of dizzinesswith prolonged standing suggesting orthostatic intolerence but not reflected bychanges in his vital signs .He denies chest pain, shortness of breath, palpitations. He did report pain inis his right supraclavicular area which initially I was concerned could be fromthe carotid dissection as had been listed as on the right, but after reviewingthe CT report this seems less likely.PAST CARDIAC HISTORY:aortic dissection, bicuspid AV with AV replacement and Ao repairPAST MEDICAL HISTORYDiagnosis Date- Aortic aneurysm (HCC)- Dizziness- GERD (gastroesophageal reflux disease)- History of spinal cord injury- Migraine- Pleuritis- Seizures (HCC)- Stroke (HCC)- Vasovagal syncopePAST SURGICAL HISTORYProcedure Laterality Date- APPENDECTOMY age 11- CAROTID ULTRASOUND DUPLEX 07/17/2017- ECHOCARDIOGRAM 08/03/2014- HEART VALVE REPLACEMENT Aortic valve- INCISION EARDRUM,ASPIR,GEN ANESTH age 4 Myringotomy/tubes- TILT TABLE TEST 07/22/2017- VASECTOMY 02/10/09SOCIAL HISTORYSocial HistorySubstance Use Topics- Smoking status: Former Smoker Quit date: 03/11/2014- Smokeless tobacco: Never Used Comment: chew- Alcohol use NoNo family history on file.ALLERGIES:ALLERGIESAll ergen Reactions- Percocet [Oxycodone* Shortness of BreathMEDICATIONS:Melatonin 5 mg cap Take 1 capsule by mouth as needed.pantoprazole DR (PROTONIX) 20 mg tablet Take 20 mg by mouth once daily.atorvastatin (LIPITOR) 10 mg tabletclopidogrel (PLAVIX) 75 mg tabletmetoprolol succinate ER (TOPROL XL) 25 mg 24 hr tabletaspirin 81 mg chewable tablet Take 81 mg by mouth once daily.REVIEW OF SYSTEMS:GENERAL: Negative for: Weight loss or gain, Fever or Chills, Weakness and Sleepdifficulties.HEENT: Negative for: Headache, Impaired Vision, Glasses, Hearing Impairment,Ringing in Ears, Nosebleeds, Poor dental care, Bleeding Gums, DenturesNECK: Negative for: Swelling, Pain, StiffnessRESPIRATORY: Negative for: Cough, Blood in Sputum, Shortness of breath,Wheezing, ApneaGASTROINTESTINAL: Negative for: Trouble swallowing, Heartburn, Change in bowelhabits, Blood in stool, Dark black stoolsMUSCULOSKELETAL: Negative for: Muscle or joint pain, Stiffness , Joint swellingNEUROLOGIC/PSYCHIAT DEMARCO: Negative for: Weakness, Paralysis, Numbness, Tingling,Tremor, Nervousness, Depressed mood, Memory lossSKIN: Negative for: Rashes, ItchingHEMATOLOGICAL/LYMPHA TIC: Negative for: Easy bruising , Easy bleedingENDOCRINE: Negative for: Heat or cold intolerance, Excessive sweating, Frequenturination, Frequent thirstPHYSICAL EXAMINATION:BP 140/80 Pulse 70 Resp 16 Ht 5' 8 (1.73m) Wt 180 lb (81.6kg) NcF318% BMI 27.38 kg/(m2).General: Well appearing, in no acute distress.Skin: No clubbing, no cyanosis.Eyes: Extra ocular movements intactOropharynx: Teeth in good repair.Neck: No jugular venous distention, no carotid bruits, carotids have a normalupstroke, no palpable thyromegaly. No bruit or thrill over carotidsLungs: Clear to auscultation bilaterally, no wheezing or rhonchi.Heart: Regular rhythm, PMI not displaced, S1, S2 normal, no S3, He does have anS4 and a murmur II/ RUSBAbdomen: Soft, nontender, bowel sounds normal, no palpable organomegaly, nobruits.Extremities: No peripheral edema . Grade 2/4 distal pulses bilaterally.Neuro: Oriented to person, place and time, alert, cooperative, gait coordinated.CARDIOVASCULAR MEDICINE TESTING:Electrocardiogram: NSR 66 bpm poor R wave progressionI have personally reviewed the Electrocardiogram.IMPRESSIO N:1. Dizziness - ICD9: 780.4, ICD10: R42 (primary diagnosis)2. Aortic valve prosthesis present - ICD9: V43.3, ICD10: Z95.23. Dissection of thoracic aorta (HCC) - ICD9: 441.01, ICD10: I71.014. History of carotid artery dissection - ICD9: V12.59, ICD10: Z86.79PLAN AND RECOMMENDATIONS:I discussed with Flakito, base on his history of symptoms and his symptoms duringhis tilt test, I do suspect he has orthostatic intolerence. This was notreflected in changes in his BP response and I did not see clear evidence ofvasovagal response and he denies a history of syncope. I do believe thesesymptoms are related to either his prior stroke (basal ganglia) and/or hisdissection, possible resulting in cerebral hypoperfusion or deoxygenation withprolonged standing or abrupt posture change, but I do not have a quick or easytreatment. It seems he has self treated with avoid positions/posture changesthat provoke symptoms and I encourage him to continue. We discussed lowintensity (nonisometric) exercises/activities that he can do that may help. Heneeds to avoid straining or lifting weights as previously instructed. We alsodiscussed taking in additional water on days that he is more symptomatic butavoiding increased sodium due to need to avoid HTN. I asked him to call if hissymptoms recur or if syncope occurs and I will see on an as needed basis.He has a lot of questions and concerns about his dissection and prior repair.He indicated that he attempted to make a follow up with Dr. Eli Jacob and was told he no longer practiced there and was not given his contactinformation. I am mycharting Dr. Vaca, our CT surgeon to enquire abouteither local follow up or referral to [facility] [place] as it seems importantthat Beck is followed longitudinally for both his known dissection as wellas follow up of his prior repair, by a specialist in this area.Referring Provider: JAZMIN ORTIZ [[id number]]Allergies As of Date: 12/18/2017 Noted Allergy ReactionPERCOCET (OXYCODONE-ACETAMINOPHEN) 12 - Shortness of BreathDate Reviewed: 12/18/2017Reviewed by: Mary Nichols - Fully AssessedReason for Visit: New Patient [172]Primary Visit Diagnosis:Dizziness [R42] Other Visit Diagnoses:Aortic valve prosthesis present [Z95.2] Dissection of thoracic aorta (HCC) [I71.01] History of carotid artery dissection [Z86.79]Order(s):EKG WITH INTERPRETATION [40383AGT] Order #: [id number]: 1Prescriptions as of 12/18/2017 Sig: MELATONIN 5 MG CAPSULE Take 1 capsule by mouth as ne* PANTOPRAZOLE 20 MG TABLET,DEL* Take 20 mg by mouth once brenda* ATORVASTATIN 10 MG TABLET CLOPIDOGREL 75 MG TABLET METOPROLOL SUCCINATE ER 25 MG* ASPIRIN 81 MG CHEWABLE TABLET Take 81 mg by mouth once brenda*Problem List As Of Date 12/18/2017 Noted Resolved Sterilization [Z30.2] INVALID FOR* Vasovagal syncope [R55]Visit Notes:>> Mary Simone Yvette Dec 18, 2017 10:50 AM Status: SignedPatient denies any cardiac complaints today.Mary Nichols CMALevel of Service: OFFICE CONSULT LEVEL IV [[id number]]Disposition: Return if symptoms worsen or fail to improve.Follow-up and Disposition History RecordedLetter TextEncounter Number: [id number] Status:Closed by TORRI DOWNS on 12/18/17 Normal [facility] PROGRESSon 12-18-2017 Protein mass conc HNO ID: [id number] thor: Torri Championervice: (none)Author Type: PhysicianType: Progress NotesFiled: 12/18/2017 12:12 PMNote Text:PRIMARY CARE PHYSICIAN:Nguyễn Stark MD[address] [facility] [address] [address]Rlrut: [phone]: [phone] PHYSICIAN:Jazmin Ortiz MD ([facility])[address] [facility] [id number] COMPLAINT:dizzinessHISTORY OF PRESENT ILLNESS:Mr. Fraga is a 42 year old male who presents today for evaluation ofvasovagal symptoms. Beck had been life flighted from [facility] in 2013 with a dissection of his thoracic aorta, he underwentemergency surgery by Dr. Benitez and had a bioprosthetic AVR andrepiar of his asscending aorta for a type A dissection. He states he wastold that his was due to a bicuspid valve and he had genetic testing forfamilial aortopathies and no family history of similar. He also has achronic dissection (in Dr. Benitez's note from April 2017 it reportsright side, but the CT scan report form March 2017 reports left commoncarotic, left subclavian and left vertebral artery). Beck had a strokein 2013 associated with the dissection with involvement of his right basalganglia and right anterolateral frontal lobe. He had been havingpositionally related dizziness, if he stands suddenly or bends over andstands, or with prolonged standing. He reports these symptoms haveimproved and denies having had recurrences in the last couple of months,he states largely due to avoiding these position changes. He denies ahistory of syncope. He had seen Dr. Benitez in response to thesesymptoms of dizziness in April, he had had a repeat CT of his chest andwas told it was stable and he had had an echo 03-21-2017 and his LVEF was60% and peak AV gradient 36 mmHg and mean 18mmHg. He was referred toneurology and has been seen by Dr. Ortiz. He had a tilt test in August whichdid not provoke syncope and his HR and BP response were normal, though hedid develop symptoms of dizziness with prolonged standing suggestingorthostatic intolerence but not reflected by changes in his vital signs .He denies chest pain, shortness of breath, palpitations. He did reportpain in is his right supraclavicular area which initially I was concernedcould be from the carotid dissection as had been listed as on the right,but after reviewing the CT report this seems less likely.PAST CARDIAC HISTORY:aortic dissection, bicuspid AV with AV replacement and Ao repairPAST MEDICAL HISTORYDiagnosis Date- Aortic aneurysm (HCC)- Dizziness- GERD (gastroesophageal reflux disease)- History of spinal cord injury- Migraine- Pleuritis- Seizures (HCC)- Stroke (HCC)- Vasovagal syncopePAST SURGICAL HISTORYProcedure Laterality Date- APPENDECTOMY age 11- CAROTID ULTRASOUND DUPLEX 07/17/2017- ECHOCARDIOGRAM 08/03/2014- HEART VALVE REPLACEMENT Aortic valve- INCISION EARDRUM,ASPIR,GEN ANESTH age 4 Myringotomy/tubes- TILT TABLE TEST 07/22/2017- VASECTOMY 02/10/09SOCIAL HISTORYSocial HistorySubstance Use Topics- Smoking status: Former Smoker Quit date: 03/11/2014- Smokeless tobacco: Never Used Comment: chew- Alcohol use NoNo family history on file.ALLERGIES:ALLERGIESAll ergen Reactions- Percocet [Oxycodone* Shortness of BreathMEDICATIONS:Melatonin 5 mg cap Take 1 capsule by mouth as needed.pantoprazole DR (PROTONIX) 20 mg tablet Take 20 mg by mouth once daily.atorvastatin (LIPITOR) 10 mg tabletclopidogrel (PLAVIX) 75 mg tabletmetoprolol succinate ER (TOPROL XL) 25 mg 24 hr tabletaspirin 81 mg chewable tablet Take 81 mg by mouth once daily.REVIEW OF SYSTEMS:GENERAL: Negative for: Weight loss or gain, Fever or Chills, Weakness andSleep difficulties.HEENT: Negative for: Headache, Impaired Vision, Glasses, HearingImpairment, Ringing in Ears, Nosebleeds, Poor dental care, Bleeding Gums,DenturesNECK: Negative for: Swelling, Pain, StiffnessRESPIRATORY: Negative for: Cough, Blood in Sputum, Shortness of breath,Wheezing, ApneaGASTROINTESTINAL: Negative for: Trouble swallowing, Heartburn, Change inbowel habits, Blood in stool, Dark black stoolsMUSCULOSKELETAL: Negative for: Muscle or joint pain, Stiffness , JointswellingNEUROLOGIC/PSY CHIATRIC: Negative for: Weakness, Paralysis, Numbness,Tingling, Tremor, Nervousness, Depressed mood, Memory lossSKIN: Negative for: Rashes, ItchingHEMATOLOGICAL/LYMPHA TIC: Negative for: Easy bruising , Easy bleedingENDOCRINE: Negative for: Heat or cold intolerance, Excessive sweating,Frequent urination, Frequent thirstPHYSICAL EXAMINATION:BP 140/80 Pulse 70 Resp 16 Ht 5' 8 (1.73m) Wt 180 lb (81.6kg) SpO2 98% BMI 27.38 kg/(m2).General: Well appearing, in no acute distress.Skin: No clubbing, no cyanosis.Eyes: Extra ocular movements intactOropharynx: Teeth in good repair.Neck: No jugular venous distention, no carotid bruits, carotids have anormal upstroke, no palpable thyromegaly. No bruit or thrill overcarotidsLungs: Clear to auscultation bilaterally, no wheezing or rhonchi.Heart: Regular rhythm, PMI not displaced, S1, S2 normal, no S3, He doeshave an S4 and a murmur II/ RUSBAbdomen: Soft, nontender, bowel sounds normal, no palpable organomegaly,no bruits.Extremities: No peripheral edema . Grade 2/4 distal pulses bilaterally.Neuro: Oriented to person, place and time, alert, cooperative, gaitcoordinated.CARDIOVASCU LAR MEDICINE TESTING:Electrocardiogram: NSR 66 bpm poor R wave progressionI have personally reviewed the Electrocardiogram.IMPRESSIO N:1. Dizziness - ICD9: 780.4, ICD10: R42 (primary diagnosis)2. Aortic valve prosthesis present - ICD9: V43.3, ICD10: Z95.23. Dissection of thoracic aorta (HCC) - ICD9: 441.01, ICD10: I71.014. History of carotid artery dissection - ICD9: V12.59, ICD10: Z86.79PLAN AND RECOMMENDATIONS:I discussed with Flakito, base on his history of symptoms and his symptomsduring his tilt test, I do suspect he has orthostatic intolerence. Thiswas not reflected in changes in his BP response and I did not see clearevidence of vasovagal response and he denies a history of syncope. I dobelieve these symptoms are related to either his prior stroke (basalganglia) and/or his dissection, possible resulting in cerebralhypoperfusion or deoxygenation with prolonged standing or abrupt posturechange, but I do not have a quick or easy treatment. It seems he has selftreated with avoid positions/posture changes that provoke symptoms and Iencourage him to continue. We discussed low intensity (nonisometric)exercises/act ivities that he can do that may help. He needs to avoidstraining or lifting weights as previously instructed. We also discussedtaking in additional water on days that he is more symptomatic butavoiding increased sodium due to need to avoid HTN. I asked him to callif his symptoms recur or if syncope occurs and I will see on an as neededbasis.He has a lot of questions and concerns about his dissection and priorrepair. He indicated that he attempted to make a follow up with at [facility] and was told he no longer practiced there and was notgiven his contact information. I am mycharting Dr. Vaca, our CTsurgeon to enquire about either local follow up or referral to [facility] as it seems important that Beck is followed longitudinally forboth his known dissection as well as follow up of his prior repair, by aspecialist in this area. [facility] NURSING PROGon 07-22-2017 Protein mass conc HNO ID: [id number] thor: Mely (Rn) Tom, RNService: NursingAuthor Type: Registered NurseType: Nursing Progress NoteFiled: 07/22/2017 8:36 AMNote Text: Nursing Progress NotePatient Name: Beck FragaMRN: [id number] Location: [facility] __[id number] - Patient arrived to [place] [address] accompanied by father. Patient orientedto room and procedure explained. Patient verbalizes understanding.This note was completed by: Mely Santos RN [facility] HOSPon 07-07-2017 Body weight Measured Patient:Beck Fraga EMRN: Height:5' 8(1.727 m)Weight:163 lb 12.8 oz (74.299 kg)Outpatient Medications as of 07/22/17:Melatonin [address] (PROTONIX) 20 mg tabletatorvastatin (LIPITOR) 10 mg tabletclopidogrel (PLAVIX) 75 mg tabletmetoprolol succinate ER (TOPROL XL) 25 mg 24 hr tabletaspirin 81 mg chewable tabletAdmission/Clinic Administered Medications as of 07/22/17:NaCl 0.9% iv infusionProblem List:Sterilization [Z30.2]Allergies:Percocet [Oxycodone-Acetaminophen]Da te Verified: 07/22/17Lab ValuesNo results within the last 30 days for the following basenames: K,HCTNo progress notes entered within the past 30 days [facility] CT Head or Brain w/o Contras ton 03-22-2017 CT Head or Brain w/o Contrast Patient Name: BECK FRAGA Jr CT Exam Date/Time 03/22/2017 13:42:[address] Head or Brain w/o Contrast Ordering Physician DO SHANKS LEAH ROSE Accession Number [id number] CPT4 Codes 95928 () Reason For Exam per protocol with cta Report Clinical: 41-year-old male patient on [address] scan of the brain without contrast, prior to contrast enhanced CTA, 1:33 PM, 03/22/2017. Pdoj-am-clfm comparison is made with the previous examination of 04/04/2014. There was effaced appearance of the frontal horn of the right lateral ventricle on the previous study, diminished density affecting the head of the caudate nucleus and basal ganglia lateral to it, indicating acute ischemic infarction at that time. On the present study infarction is seen is an area of diminished density in the right basal ganglia, and the tissue loss has resulted in larger size of the anterior portion of the right lateral ventricle. Also observed is an area of diminished density in the right anterolateral high frontal brain on the previous study, another region of infarction, and which appears to have resolved and not identified on the present study. There is otherwise no significant interval change. Mild degree of diminished density affecting the periventricular white matter implies an element of mild degree of microangiopathic ischemic process. There is no intracranial hemorrhage. No abnormal extra-axial subdural collection. Images with windows wide for bone show no skull fracture. No active disease of the paranasal sinuses is seen. IMPRESSION: 1. Comparison with the previous study of 04/02/2014 shows that there was acute infarction of the time in the right basal ganglia and right anterolateral high frontal brain. 2. Focal area of diminished density in the right basal ganglia seen at this time conform to the remote infarction. Slightly larger size of the anterior portion of the right lateral ventricle conforms to tissue loss from the remote infarction. 3. Negative for an acute lesion evident on the present CT, negative for mass lesion or mass effect and negative for intracranial hemorrhage. Report Dictated on Final Dictated: 03/22/2017 2:46 pm Dictating Physician: MD DUARTE SHARDUL Signed Date and Time: 03/22/2017 2:50 pm Signed by: MD DUARTE SHARDUL Transcribed Date and Time: 03/22/2017 2:46 Normal [facility] CTA Head/Neck w/ + w/o contr amado 03-22-2017 CTA Head/Neck w/ + w/o contrast Patient Name: BECK FRAGA Jr CT Exam Date/Time 03/22/2017 13:42:58 EST Exam CTA Head/Neck w/ + w/o contrast Ordering Physician DO SHANKS LEAH ROSE Accession Number [id number] CPT4 Codes Q9967 (), 25143 (), 12167 () Reason For Exam history of carotid artery dissection Report Clinical: 41-year-old male patient on 5 E. complaining of chest pain. 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 CTA of the head and neck, following 75 mL of Isovue-370, 03/22/2017. 0.5 mm axial scans and 1 mm sagittal coronal reformatted images and volume rendered 3-D images concurrently obtained are viewed. Comparison is made with remote CTA of the head and neck done on 04/01/2014. There is history of [employer] A aortic dissection, and surgical repair with graft placement in the ascending aorta. Dissection cephalic to the graft conduit in the ascending aorta and arch with involvement of the vessels arising from the arch. On these axial images of the present study the dissection flap is seen in the aortic arch, and it is observed to course cephalic into the innominate artery for a short distance, into the left common carotid artery and into the left subclavian artery, with dissection flap seen in the proximal portion of left vertebral artery and in the visualized proximal part of the left subclavian artery. The left common carotid dissection flap can be identified on the sagittal coronal reformatted images, and the dissection flap extends to about 1 cm proximal to the bifurcation the distal left common carotid artery. The dissection flap extending into the innominate artery and the right side now is very slightly the lumen at the origin of the nominated, and the flap extends distally for dissection is about 1.7 cm. The left vertebral flap extends for a length of about 11 mm in to the proximal part of the left vertebral artery. Higher up, the vertebral arteries are unremarkable, there is a larger caliber of the left vertebral artery. No focal stenosis in either vertebral artery distally is seen, and their confluence to form the basilar is observed and unremarkable. The carotid bifurcation on both sides is unremarkable, there is no extension of the dissection flap on the left into the internal carotid artery. No ICA stenosis seen on either side, by NASCET criteria 0 % stenosis. Intracranial anatomy shows no obvious abnormal normality. The basilar ends in the mangle tender which show no stenosis. No sizable P-comm is seen on either side. The ICAs in their petrous and cavernous portions are unremarkable. Normal branching of the ICAs into the ARTURO and MCA vessels is seen. No M1 stenosis is seen. Sylvian group of vessels unremarkable. A1 and A2 vessels are unremarkable. On the source images the arterial distribution on both sides is similar no compromise is seen. Cortical veins and venous sinuses are visualized and unremarkable. Comparison with the previous study of 04/01/2013 shows no further progression of the dissection flaps, and stable status is maintained. The dissection flap extending into the left subclavian and proximal left vertebral arteries is seen on the previous study, and also in the proximal part of the innominate. The common carotid flap on the left side is also without interval change. IMPRESSION: 1. 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 Dissection cephalic to the graft continuing into the innominate, left common carotid, left subclavian and left vertebral arteries, and along the aortic arch. 2. Stable appearance of the dissection is noted when compared with the previous study of 04/01/2014. 3. No compromise of intracranial vasculature is seen. Report Dictated on Final Dictated: 03/22/2017 2:20 pm Dictating Physician: MD DUARTE SHARDUL Signed Date and Time: 03/22/2017 2:45 pm Signed by: MD DUARTE SHARDUL Transcribed Date and Time: 03/22/2017 2:20 Normal [facility] Comp Metabolic Panelon 03-22 Alkaline phosphatase (ALP) 68 U/L Normal 45-117 [facility] Comment on above: Performed By: #### H EMDF, PT, CMP3, MG3, BNP3, TROPN ####[address] [address] Bilirubin (total) 0.9 mg/dL Normal 0.2-1.0 [facility] Comment on above: Performed By: #### H EMDF, PT, CMP3, MG3, BNP3, TROPN ####[address] [address] Protein 6.6 g/dL Normal 6.4-8.2 [facility] Comment on above: Performed By: #### H EMDF, PT, CMP3, MG3, BNP3, TROPN ####[address] [address] Aspartate aminotransferase (AST) 8 U/L Low 15- [facility] Comment on above: Performed By: #### H EMDF, PT, CMP3, MG3, BNP3, TROPN ####[address] [address] Alanine aminotransferase (ALT) 16 U/L Normal - [facility] Comment on above: Performed By: #### H EMDF, PT, CMP3, MG3, BNP3, TROPN ####[address] [address] Anion gap 8 mmol/L Normal [facility] Comment on above: Performed By: #### H EMDF, PT, CMP3, MG3, BNP3, TROPN ####[address] [address] Creatinine 1.09 mg/dL Normal 0.55-1.40 [facility] Comment on above: Performed By: #### H EMDF, PT, CMP3, MG3, BNP3, TROPN ####[address] [address] eGFR (black) mL/min/{1.73_m2} Normal >60 [facility] Comment on above: Performed By: #### H EMDF, PT, CMP3, MG3, BNP3, TROPN ####[address] [address] eGFR (non-black) mL/min/{1.73_m2} Normal >60 [facility] Comment on above: Result Comment: Sour ce- MDRD equation with creatinine calibration to IDMS(NKDEP)eGFR not recommended for drug dose adjustment Performed By: #### H EMDF, PT, CMP3, MG3, BNP3, TROPN ####[address] [place] [address] Albumin 3.7 g/dL Normal 3.4-5.0 [facility] Comment on above: Performed By: #### H EMDF, PT, CMP3, MG3, BNP3, TROPN ####[address] [place] [address] Calcium 8.5 mg/dL Normal 8.2-10.1 [facility] Comment on above: Performed By: #### H EMDF, PT, CMP3, MG3, BNP3, TROPN ####[address] [place] [address] Glucose mass conc 97 mg/dL Normal 70-100 [facility] Comment on above: Performed By: #### H EMDF, PT, CMP3, MG3, BNP3, TROPN ####[address] [place] [address] Urea nitrogen 17 mg/dL Normal 7-25 [facility] Comment on above: Performed By: #### H EMDF, PT, CMP3, MG3, BNP3, TROPN ####[address] [place] [address] CO2 26 mmol/L Normal 21-32 [facility] Comment on above: Performed By: #### H EMDF, PT, CMP3, MG3, BNP3, TROPN ####[address] [address] Chloride 110 mmol/L High 98-109 [facility] Comment on above: Performed By: #### H EMDF, PT, CMP3, MG3, BNP3, TROPN ####[address] [place] [address] Potassium molar conc 3.7 mmol/L Normal 3.5-5.1 [facility] Comment on above: Performed By: #### H EMDF, PT, CMP3, MG3, BNP3, TROPN ####[place] [address] Sodium 144 mmol/L Normal 135-145 [facility] Comment on above: Performed By: #### H EMDF, PT, CMP3, MG3, BNP3, TROPN ####[place] [address] Hemogramon 03-22-2017 Erythrocyte distribution width Auto Ratio (RBC) 13.3 % Normal 11.5-14.5 [facility] Comment on above: Performed By: #### H EMDF, PT, CMP3, MG3, BNP3, TROPN ####[place] [address] Erythrocytes (RBC) 5.18 10*6/uL Normal 4.40-5.90 [facility] Comment on above: Performed By: #### H EMDF, PT, CMP3, MG3, BNP3, TROPN ####[place] [address] Hematocrit (HCT) 45.6 % Normal 40.0-52.0 [facility] Comment on above: Performed By: #### H EMDF, PT, CMP3, MG3, BNP3, TROPN ####[place] [address] Hemoglobin mass conc (Bld) 15.4 g/dL Normal 13.0-18.0 [facility] Comment on above: Performed By: #### H EMDF, PT, CMP3, MG3, BNP3, TROPN ####[place] [address] MCH 29.7 pg Normal 26.0-34.0 [facility] Comment on above: Performed By: #### H EMDF, PT, CMP3, MG3, BNP3, TROPN ####[place] [address] MCHC mass conc (RBC) 33.7 % Normal 32.0-36.0 [facility] Comment on above: Performed By: #### H EMDF, PT, CMP3, MG3, BNP3, TROPN ####[address] [address] MCV 88.1 fL Normal 80.0-98.0 [facility] Comment on above: Performed By: #### H EMDF, PT, CMP3, MG3, BNP3, TROPN ####[place] [address] Platelet mean volume (PMV) 9.5 fL Normal 7.4-10.4 [facility] Comment on above: Performed By: #### H EMDF, PT, CMP3, MG3, BNP3, TROPN ####[place] [address] Platelets 205 10*3/uL Normal 140-440 [facility] Comment on above: Performed By: #### H EMDF, PT, CMP3, MG3, BNP3, TROPN ####[place] [address] WBC (Leukocytes) 6.4 10*3/uL Normal 3.6-10.7 [facility] Comment on above: Performed By: #### H EMDF, PT, CMP3, MG3, BNP3, TROPN ####[place] [address] Magnesiumon 03-22-2017 Magnesium 2.3 mg/dL Normal 1.8-2.4 [facility] Comment on above: Performed By: #### H EMDF, PT, CMP3, MG3, BNP3, TROPN ####[place] [address] CR Chest PA/LATon 03-21-2017 CR Chest PA/LAT Patient Name: BECK FRAGA Jr Diagnostic Radiology Exam Date/Time 03/20/2017 23:26:18 EST Exam CR Chest PA/LAT Ordering Physician MD GABRIEL, BULMARO Garces Accession Number [id number] CPT4 Codes 43566 () Reason For Exam cp Report CHEST X-RAY TWO VIEWS CLINICAL INDICATION: cp TECHNIQUE: Frontal and lateral views of the chest. COMPARISON: 03/18/2014 FINDINGS: Status post sternotomy. Mild cardiac enlargement. No vascular congestion, pleural effusion, or pneumothorax. Lungs are clear. IMPRESSION: 1. No acute finding. Report Dictated on Final Dictated: 03/20/2017 11:32 pm Dictating Physician: MD ORTIZ JOHN R Signed Date and Time: 03/20/2017 11:33 pm Signed by: MD ORTIZ JOHN R Transcribed Date and Time: 03/20/2017 11:32 Normal [facility] Comp Metabolic Panelon 03-21 Alkaline phosphatase (ALP) 65 U/L Normal 45-117 [facility] Comment on above: Performed By: #### H EMDF, PT, CMP3, MG3, BNP3, TROPN ####[address] [address] Protein 6.6 g/dL Normal 6.4-8.2 [facility] Comment on above: Performed By: #### H EMDF, PT, CMP3, MG3, BNP3, TROPN ####[address] [address] Bilirubin (total) 1.0 mg/dL Normal 0.2-1.0 [facility] Comment on above: Performed By: #### H EMDF, PT, CMP3, MG3, BNP3, TROPN ####[address] [address] Alanine aminotransferase (ALT) 17 U/L Normal 12-78 [facility] Comment on above: Performed By: #### H EMDF, PT, CMP3, MG3, BNP3, TROPN ####[address] [address] Aspartate aminotransferase (AST) 11 U/L Low 15-37 [facility] Comment on above: Performed By: #### H EMDF, PT, CMP3, MG3, BNP3, TROPN ####[address] [address] Creatinine 1.03 mg/dL Normal 0.55-1.40 [facility] Comment on above: Performed By: #### H EMDF, PT, CMP3, MG3, BNP3, TROPN ####[place] [address] eGFR (black) mL/min/{1.73_m2} Normal >60 [facility] Comment on above: Performed By: #### H EMDF, PT, CMP3, MG3, BNP3, TROPN ####[place] [address] eGFR (non-black) mL/min/{1.73_m2} Normal >60 [facility] Comment on above: Result Comment: Sour ce- MDRD equation with creatinine calibration to IDMS(NKDEP)eGFR not recommended for drug dose adjustment Performed By: #### H EMDF, PT, CMP3, MG3, BNP3, TROPN ####[place] [address] Anion gap 11 mmol/L Normal [facility] Comment on above: Performed By: #### H EMDF, PT, CMP3, MG3, BNP3, TROPN ####[place] [address] Albumin 4.0 g/dL Normal 3.4-5.0 [facility] Comment on above: Performed By: #### H EMDF, PT, CMP3, MG3, BNP3, TROPN ####[place] [address] Calcium 8.5 mg/dL Normal 8.2-10.1 [facility] Comment on above: Performed By: #### H EMDF, PT, CMP3, MG3, BNP3, TROPN ####[place] [address] CO2 24 mmol/L Normal 21-32 [facility] Comment on above: Performed By: #### H EMDF, PT, CMP3, MG3, BNP3, TROPN ####[place] [address] Glucose mass conc 84 mg/dL Normal 70-100 [facility] Comment on above: Performed By: #### H EMDF, PT, CMP3, MG3, BNP3, TROPN ####[address] [address] Urea nitrogen 16 mg/dL Normal 7-25 [facility] Comment on above: Performed By: #### H EMDF, PT, CMP3, MG3, BNP3, TROPN ####[address] [address] Chloride 109 mmol/L Normal 98-109 [facility] Comment on above: Performed By: #### H EMDF, PT, CMP3, MG3, BNP3, TROPN ####[address] [address] Potassium molar conc 3.5 mmol/L Normal 3.5-5.1 [facility] Comment on above: Performed By: #### H EMDF, PT, CMP3, MG3, BNP3, TROPN ####[address] [address] Sodium 144 mmol/L Normal 135-145 [facility] Comment on above: Performed By: #### H EMDF, PT, CMP3, MG3, BNP3, TROPN ####[address] [address] Echo Complete w/wo Contrasto n 03-21-2017 Echo Complete w/wo Contrast Patient Name: BECK FRAGA Jr Ultrasound Exam Date/Time 03/21/2017 15:24:51 EST Exam Echo Complete w/wo Contrast Ordering Physician MD DAVIAN, TEJASVI Accession Number [id number] Reason For Exam chest pain, ACS rule out Report TRANSTHORACIC ECHOCARDIOGRAM PATIENT: Beck Fraga STUDY DATE: 03/21/2017 : 1975 AGE: 41 HT/WT: 149.9 cm (59 61.7 kg (135.7 in) lb) GENDER: M BP: 120 / 80 LOCATION: [facility] PATIENT Inpatient [facility] STATUS: *ORDERING PHYSICIAN: * Evon Goncalves *READING PHYSICIAN: * Linda Guadalupe MD *ADVERTISING ASSISTANT MANAGER: * Sindhu Pineda --- INDICATIONS: Chest Pain, History of Aortic Dissection repair with patch and porcine bioprosthesis 2013. --- CONCLUSIONS SUMMARY: 1. Left ventricle: The cavity size is normal. Wall thickness is normal. Systolic function is normal by the biplane method of disks. The estimated ejection fraction is 60%. There are no regional wall motion abnormalities. Left ventricular diastolic function parameters are normal. 2. Right ventricle: The cavity size is normal. Wall thickness is normal. Systolic function is normal. 3. Left atrium: The atrium is normal in size. 4. Mitral valve: Prolapse, posterior leaflet. Mild, late systolicprolapse, involving the posterior leaflet. There is mild, 1+ regurgitation. 5. Aortic valve: A bioprosthesis is present. The cusps separate normally. The valve is probably funtioning normally despite the mildly elevated velocities. Normal thickness leaflets. Peak velocity (S): 3 m/sec. Mean gradient (S): 18 mm Hg. Peak gradient (S): 36 mm Hg. Dimensionless index: 0.31. Valve area (VTI): 1 cm2. 6. Aorta: The aorta is dilated, particularly at the root and measures 5.2 cm in diameter RECOMMENDATIONS: By history the patient had an aortic dissection and repair of the aorta with replacement of the aortic valve. 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 Suggest reviewing previous imaging. We have none available here. --- STUDY DATA: Complete transthoracic echocardiogram. Procedure: Image quality was adequate. M-mode, complete 2D, complete spectral Doppler, and color flow Doppler images were acquired and archived for permanent storage and are available for subsequent review. Study status: Routine. Patient status: Inpatient. --- FINDINGS LEFT VENTRICLE: The cavity size is normal. Wall thickness is normal. Systolic function is normal by the biplane method of disks. The estimated ejection fraction is 60%. There are no regional wall motion abnormalities. Left ventricular diastolic function parameters are normal. RIGHT VENTRICLE: The cavity size is normal. Wall thickness is normal. Systolic function is normal. Right ventricular systolic pressure is within the normal range. VENTRICULAR SEPTUM: There is no evidence of a ventricular septal defect. LEFT ATRIUM: The atrium is normal in size. RIGHT ATRIUM: The atrium is normal in size. ATRIAL SEPTUM: Color Doppler shows no evidence of shunt. MITRAL VALVE: Normal-sized annulus. Prolapse, posterior leaflet. Mild, late systolicprolapse, involving the posterior leaflet. Doppler: There is mild, 1+ regurgitation. AORTIC VALVE: A bioprosthesis is present. The cusps separate normally. The valve is probably funtioning normally despite the mildly elevated velocities. Normal thickness leaflets. Doppler: There is no regurgitation. Dimensionless index: 0.31. Valve area (VTI): 1 cm2. Indexed valve area (VTI): 0.6 cm2/m2. Mean gradient (S): 18 mm Hg. Peak gradient (S): 36 mm Hg. Peak velocity (S): 3 m/sec. TRICUSPID VALVE: Structurally normal valve. Doppler: There is trivial, less than 1+ regurgitation. PULMONIC VALVE: Structurally normal valve. Doppler: There is moderate, 2+ regurgitation. AORTA: The aorta is dilated, particularly at the root and measures 5.2 cm in diameter PULMONARY ARTERY: Systolic pressure is within the normal range, estimated to be 20 mm Hg. Main pulmonary artery: Normal. PERICARDIUM: There is no pericardial effusion. SYSTEMIC VEINS: Well visualized. Inferior vena cava: The vessel is normal. The IVC collapses by greater than 50% with inspiration. --- Measurements Left ventricle Value Reference LV ID, ED 5.1 cm 4.2 - 5.9 LV ID, ES 3.6 cm --------- LV PW thickness, ED 0.8 cm 0.6 - 1.0 LV end-diastolic volume, 1-p A4C 116 ml 67 - 155 LV end-systolic volume, 1-p A4C 46 ml 22 - 58 LV end-diastolic volume, 2-p 100 ml 67 - 155 LV end-systolic volume, 2-p 40 ml 22 - 58 LV ejection fraction, 2-p 60 % >=55 Ventricular septum Value Reference IVS thickness, ED (H) 1.1 cm 0.6 - 1.0 LVOT Value Reference LVOT ID, A-P 2.1 cm --------- LVOT mean velocity, S 0.6 m/sec --------- LVOT VTI, S 18.5 cm --------- LVOT peak gradient, S 2 mm Hg --------- Stroke volume (SV), LVOT DP 64 ml --------- Stroke index (SV/bsa), LVOT DP 39 ml/m2 --------- Aortic valve Value Reference Aortic valve peak velocity, S 3 m/sec --------- Aortic valve mean velocity, S 1.9 m/sec --------- Aortic valve VTI, S 60.6 cm --------- Aortic mean gradient, S 18 mm Hg --------- Aortic peak gradient, S 36 mm Hg --------- DI 0.31 --------- Aortic valve area, VTI 1 cm2 --------- Aortic valve area/bsa, VTI 0.6 cm2/m2 --------- Aorta Value Reference Aortic root ID (H) 5.2 cm <3.9 Aortic root ID, ED (sinus) (H) 5.2 cm <3.9 Aortic root ID, STJ, ED 5.2 cm --------- Ascending aorta ID, A-P 5.3 cm --------- Left atrium Value Reference LA volume/bsa, ES, 2-p 25 ml/m2 --------- Pulmonary arteries Value Reference PA pressure, S, DP 21 mm Hg --------- Tricuspid valve Value Reference Tricuspid regurg peak velocity 2.1 m/sec --------- Tricuspid peak RV-RA gradient 18 mm Hg --------- Right atrium Value Reference RA area, ES, A4C 12 cm2 10 - 18 Systemic veins Value Reference Estimated RAP 3 mm Hg --------- Right ventricle Value Reference RV ID, minor axis, ED, A4C base 2.8 cm 2.4 - 4.2 RV ID, minor axis, ED, A4C mid 2.7 cm 2.0 - 3.5 TAPSE 2.0 cm --------- RV pressure, S, DP 21 mm Hg --------- RV s', lateral, S 0.12 m/sec --------- Pulmonic valve Value Reference Pulmonic regurg gradient, ED 4 mm Hg --------- Legend: (L) and (H) gianni values outside specified reference range. Electronically signed by Linda Guadalupe MD 03/21/2017 16:12 Final Dictated: 03/21/2017 4:13 pm Dictating Physician: LINDA GUADALUPE Signed Date and Time: 03/21/2017 4:12 pm Signed by: LINDA GUADALUPE Normal [facility] Glucose,Bedsideon 03-21-2017 Glucose mass conc 89 mg/dL Normal 70-100 [facility] Comment on above: Result Comment: Test performed by glucose meter. Results may be 10%-15% lowerthan serum/plasma values. (CLIA ID [id number]) Performed By: #### H EMDF, PT, CMP3, MG3, BNP3, TROPN ####[address] [place] [address] Hemogram w/ Autodiffon 03-21 Abs Baso Cnt 0.0 10*3/uL Normal 0.0-0.2 [facility] Comment on above: Performed By: #### H EMDF, PT, CMP3, MG3, BNP3, TROPN ####[address] [place] [address] Basophils/100 WBC Auto (Bld) 0.4 % Normal [facility] Comment on above: Performed By: #### H EMDF, PT, CMP3, MG3, BNP3, TROPN ####[address] [address] Eosinophils 0.0 10*3/uL Normal 0.0-0.5 [facility] Comment on above: Performed By: #### H EMDF, PT, CMP3, MG3, BNP3, TROPN ####[address] [place] [address] Eosinophils/100 leukocytes 0.0 % Normal [facility] Comment on above: Performed By: #### H EMDF, PT, CMP3, MG3, BNP3, TROPN ####[address] [place] [address] Erythrocyte distribution width Auto Ratio (RBC) 13.0 % Normal 11.5-14.5 [facility] Comment on above: Performed By: #### H EMDF, PT, CMP3, MG3, BNP3, TROPN ####[address] [address] Erythrocytes (RBC) 4.91 10*6/uL Normal 4.40-5.90 [facility] Comment on above: Performed By: #### H EMDF, PT, CMP3, MG3, BNP3, TROPN ####[address] [address] Granulocytes/100 WBC (Bld) 68.5 % Normal [facility] Comment on above: Performed By: #### H EMDF, PT, CMP3, MG3, BNP3, TROPN ####[place] [address] Hematocrit (HCT) 43.3 % Normal 40.0-52.0 [facility] Comment on above: Performed By: #### H EMDF, PT, CMP3, MG3, BNP3, TROPN ####[place] [address] Hemoglobin mass conc (Bld) 14.5 g/dL Normal 13.0-18.0 [facility] Comment on above: Performed By: #### H EMDF, PT, CMP3, MG3, BNP3, TROPN ####[place] [address] Lymphocytes 1.5 10*3/uL Normal 1.0-4.3 [facility] Comment on above: Performed By: #### H EMDF, PT, CMP3, MG3, BNP3, TROPN ####[address] [address] Lymphocytes/100 leukocytes 23.2 % Normal [facility] Comment on above: Performed By: #### H EMDF, PT, CMP3, MG3, BNP3, TROPN ####[address] [address] MCH 29.6 pg Normal 26.0-34.0 [facility] Comment on above: Performed By: #### H EMDF, PT, CMP3, MG3, BNP3, TROPN ####[address] [address] MCHC mass conc (RBC) 33.6 % Normal 32.0-36.0 [facility] Comment on above: Performed By: #### H EMDF, PT, CMP3, MG3, BNP3, TROPN ####[address] [address] MCV 88.2 fL Normal 80.0-98.0 [facility] Comment on above: Performed By: #### H EMDF, PT, CMP3, MG3, BNP3, TROPN ####[address] [address] Monocytes 0.5 10*3/uL Normal 0.0-0.8 [facility] Comment on above: Performed By: #### H EMDF, PT, CMP3, MG3, BNP3, TROPN ####[address] [address] Monocytes/100 leukocytes 7.9 % Normal [facility] Comment on above: Performed By: #### H EMDF, PT, CMP3, MG3, BNP3, TROPN ####[place] [address] Neutrophils 4.6 10*3/uL Normal 1.8-7.0 [facility] Comment on above: Performed By: #### H EMDF, PT, CMP3, MG3, BNP3, TROPN ####[address] [address] Platelet mean volume (PMV) 9.4 fL Normal 7.4-10.4 [facility] Comment on above: Performed By: #### H EMDF, PT, CMP3, MG3, BNP3, TROPN ####[address] [address] Platelets 181 10*3/uL Normal 140-440 [facility] Comment on above: Performed By: #### H EMDF, PT, CMP3, MG3, BNP3, TROPN ####[address] [address] WBC (Leukocytes) 6.7 10*3/uL Normal 3.6-10.7 [facility] Comment on above: Performed By: #### H EMDF, PT, CMP3, MG3, BNP3, TROPN ####[address] [place] [address] Magnesiumon 03-21-2017 Magnesium 2.0 mg/dL Normal 1.8-2.4 [facility] Comment on above: Performed By: #### T ROPN, MG3 ####[address] [address] [place] [address] Magnesium 2.1 mg/dL Normal 1.8-2.4 [facility] Comment on above: Performed By: #### H EMDF, PT, CMP3, MG3, BNP3, TROPN ####[address] [place] [address] NT pro BNPon 03-21-2017 BNP 444 pg/mL High 0-125 [facility] Comment on above: Performed By: #### H EMDF, PT, CMP3, MG3, BNP3, TROPN ####[address] [address] Prothrombin Timeon 7 INR Coag RelTime (PPP) 1.2 {INR} High 0.9-1.1 [facility] Comment on above: Result Comment: Brendan mmended Anticoagulant Therapy:SEE BELOW----- INR of 2.0 - 3.0 :- Prophylaxis of Venous Thrombosis (high-risk surgery)- Treatment of Venous Thrombosis- Treatment of Pulmonary Embolism (Includes tissue heartvalves, Acute Myocardial Infarction to prevent systemicembolism, Valvular Heart Disease, and Atrial Fibrillation)----- INR of 2.5 - 3.5 :- Mechanical Prosthetic Valves (high risk)- If oral anticoagulant therapy is used to preventMyocardial Infarction Performed By: #### H EMDF, PT, CMP3, MG3, BNP3, TROPN ####[address] [address] [place] [address] Prothrombin time (PT) Coag time (PPP) 11.9 s Normal 9.0-12.0 [facility] Comment on above: Result Comment: . Performed By: #### H EMDF, PT, CMP3, MG3, BNP3, TROPN ####[address] [address] TS GELon 03-21-2017 TS GEL PATIENT: FLAKITO Lopez LOC: [id number]# : [id number] : 1975 SEX: M AGE: [id number] BY: GABRIEL Maurer ORDERED : 03/20/2017 23:02 COLLECTED: 03/21/2017 01:02ORDER : [id number] RECEIVED : 03/21/2017 01:20 --TEST NAME RESULT UNITS RANGES ABN FL STABO Group B FRh, Gel POS FAntibody Screen Gel NEG F Normal [facility] Comment on above: Performed By: #### T SGL ####[place] [address] Troponin Ion 03-21-2017 Troponin I.cardiac mass conc ng/mL Normal 0.000-0.04 5 [facility] Comment on above: Result Comment: 0.04 6 - 0.400 = Indeterminate> 0.400 = Consider Myocardial Injury Performed By: #### T ROPN, MG3 ####[place] [address] Troponin I.cardiac mass conc ng/mL Normal 0.000-0.04 5 [facility] Comment on above: Result Comment: 0.04 6 - 0.400 = Indeterminate> 0.400 = Consider Myocardial Injury Performed By: #### H EMDF, PT, CMP3, MG3, BNP3, TROPN ####[place] [address] COVID-19 virus antigen assay SARS-CoV-2 (COVID-19) Ag IA.rapid Ql (Resp) [facility] Work Phone: No Panel Information Influenza Types A,B Direct FA (JUAN JOSE) [facility] Work Phone: RSV Ag EIA RSV Ag Immune stain Ql (Tiss) [facility] Work Phone: Vital Signs Date Time Vital Sign Value Performing Clinician Faci lity 08-30-2024 07:54-0400 Body temperature 97.4 [degF] Dr. Nguyễn Stark MD Work Phone: [facility] 08-30-2024 07:54-0400 Diastolic blood pressure 72 mm[Hg] Dr. Nguyễn Stark MD Work Phone: [facility] 08-30-2024 07:54-0400 Heart rate 56 /min Dr. Nguyễn Stark MD Work Phone: [facility] 08-30-2024 07:54-0400 Respiratory rate 18 /min Dr. Nguyễn Stark MD Work Phone: [facility] 08-30-2024 07:54-0400 SaO2% (BldA) [Mass fraction] 98 % Dr. Nguyễn Stark MD Work Phone: [facility] 08-30-2024 07:54-0400 Systolic blood pressure 117 mm[Hg] Dr. Nguyễn Stark MD Work Phone: [facility] 08-30-2024 07:50-0400 Inhaled oxygen flow rate 2 L/min Dr. Nguyễn Stark MD Work Phone: [facility] 08-30-2024 06:06-0400 Body height [address] Nguyễn Stark MD Work Phone: [facility] 08-30-2024 06:06-0400 Body mass index (BMI) [Ratio] 29.4 kg/m2 Dr. Nguyễn Stark MD Work Phone: [facility] 08-30-2024 06:06-0400 Body weight [address] Nguyễn Stark MD Work Phone: [facility] 08-18-2024 13:21-0400 Body height 167.6 cm Keely Eubanks CHAIN BUILDER.AIR BAG STRIPPER Work Phone: [facility] 08-18-2024 13:21-0400 Body mass index (BMI) [Ratio] 29.21 kg/m2 Keely Eubanks CHAIN BUILDER.AIR BAG STRIPPER Work Phone: [facility] 08-18-2024 13:21-0400 Body temperature 97.3 [degF] Keely Eubanks CHAIN BUILDER.AIR BAG STRIPPER Work Phone: [facility] 08-18-2024 13:21-0400 Body weight 82.1 kg Keely Eubanks CHAIN BUILDER.AIR BAG STRIPPER Work Phone: [facility] 08-18-2024 13:21-0400 Diastolic blood pressure 51 mm[Hg] Keely Eubanks CHAIN BUILDER.AIR BAG STRIPPER Work Phone: [facility] 08-18-2024 13:21-0400 Heart rate 51 /min Keely Eubanks CHAIN BUILDER.AIR BAG STRIPPER Work Phone: [facility] 08-18-2024 13:21-0400 Respiratory rate 14 /min Keely Eubanks CHAIN BUILDER.AIR BAG STRIPPER Work Phone: [facility] 08-18-2024 13:21-0400 SaO2% (BldA) [Mass fraction] 99 % Keely Eubanks CHAIN BUILDER.AIR BAG STRIPPER Work Phone: [facility] 08-18-2024 13:21-0400 Systolic blood pressure 146 mm[Hg] Keely Eubanks CHAIN BUILDER.AIR BAG STRIPPER Work Phone: [facility] 08-20-2023 13:20-0400 Body height 167.6 cm Harjit Thorpe MD Work Phone: [facility] 08-20-2023 13:20-0400 Body mass index (BMI) [Ratio] 28.7 kg/m2 Harjit Thorpe MD Work Phone: [facility] 08-20-2023 13:20-0400 Body temperature 98.8 [degF] Harjit Thorpe MD Work Phone: [facility] 08-20-2023 13:20-0400 Body weight 80.65 kg Harjit Thorpe MD Work Phone: [facility] 08-20-2023 13:20-0400 Diastolic blood pressure 80 mm[Hg] Harjit Thorpe MD Work Phone: [facility] 08-20-2023 13:20-0400 Heart rate 58 /min Harjit Thorpe MD Work Phone: [facility] 08-20-2023 13:20-0400 SaO2% (BldA) [Mass fraction] 98 % Harjit Thorpe MD Work Phone: [facility] 08-20-2023 13:20-0400 Systolic blood pressure 164 mm[Hg] Harjit Thorpe MD Work Phone: [facility] 06-27-2022 14:41-0400 Diastolic blood pressure 59 mm[Hg] Donnie Jiang DMD Work Phone: [facility] 06-27-2022 14:41-0400 Heart rate 60 /min Donnie Jiang DMD Work Phone: [facility] 06-27-2022 14:41-0400 SaO2% (BldA) [Mass fraction] 98 % Donnie Jiang DMD Work Phone: [facility] 06-27-2022 14:41-0400 Systolic blood pressure 144 mm[Hg] Donnie Jiang DMD Work Phone: [facility] 06-26-2022 12:38-0400 Body height 167.6 cm Harjit Thorpe MD Work Phone: [facility] 06-26-2022 12:38-0400 Body temperature 98.4 [degF] Harjit Thorpe MD Work Phone: [facility] 06-26-2022 12:38-0400 Body weight 87.09 kg Harjit Thorpe MD Work Phone: [facility] 06-26-2022 12:38-0400 Diastolic blood pressure 84 mm[Hg] Harjit Thorpe MD Work Phone: [facility] 06-26-2022 12:38-0400 Heart rate 69 /min Harjit Thorpe MD Work Phone: [facility] 06-26-2022 12:38-0400 SaO2% (BldA) [Mass fraction] 99 % Harjit Thorpe MD Work Phone: [facility] 06-26-2022 12:38-0400 Systolic blood pressure 147 mm[Hg] Harjit Thorpe MD Work Phone: [facility] 06-26-2022 10:00-0400 Diastolic blood pressure 73 mm[Hg] Xavier Pollard MD Work Phone: [facility] 06-26-2022 10:00-0400 Heart rate 58 /min Xavier Pollard MD Work Phone: [facility] 06-26-2022 10:00-0400 Systolic blood pressure 146 mm[Hg] Xavier Pollard MD Work Phone: [facility] 06-26-2022 09:57-0400 Body height 167.6 cm Xavier Pollard MD Work Phone: [facility] 06-26-2022 09:57-0400 Body weight 87.09 kg Xavier Pollard MD Work Phone: [facility] 06-26-2022 09:57-0400 Respiratory rate 17 /min Xavier Pollard MD Work Phone: [facility] 06-26-2022 09:57-0400 SaO2% (BldA) [Mass fraction] 98 % Xavier Pollard MD Work Phone: [facility] 05-13-2022 11:40-0500 Body height 167.6 cm Benton Schwarz MD Work Phone: [facility] 05-13-2022 11:40-0500 Body weight 84.37 kg Benton Schwarz MD Work Phone: [facility] 05-13-2022 11:40-0500 Diastolic blood pressure 69 mm[Hg] Benton Schwarz MD Work Phone: [facility] 05-13-2022 11:40-0500 Heart rate 54 /min Benton Schwarz MD Work Phone: [facility] 05-13-2022 11:40-0500 SaO2% (BldA) [Mass fraction] 98 % Benton Schwarz MD Work Phone: [facility] 05-13-2022 11:40-0500 Systolic blood pressure 141 mm[Hg] Benton Schwarz MD Work Phone: [facility] 05-10-2022 08:58-0500 Body height 167.[address] Nguyễn Stark Work Phone: [facility] 05-10-2022 08:58-0500 Body mass index (BMI) [Ratio] 30.2 kg/m2 Dr. Nguyễn Stark Work Phone: [facility] 05-10-2022 08:58-0500 Body temperature 97.3 [degF] Dr. Nguyễn Stark Work Phone: [facility] 05-10-2022 08:58-0500 Body weight 84.[address] Nguyễn Stark Work Phone: [facility] 05-10-2022 08:58-0500 Diastolic blood pressure 81 mm[Hg] Dr. Nguyễn Stark Work Phone: [facility] 05-10-2022 08:58-0500 Heart rate 59 /min Dr. gNuyễn Stark Work Phone: [facility] 05-10-2022 08:58-0500 Respiratory rate 18 /min Dr. Nguyễn Stark Work Phone: [facility] 05-10-2022 08:58-0500 SaO2% (BldA) [Mass fraction] 97 % Dr. Nguyễn Stark Work Phone: [facility] 05-10-2022 08:58-0500 Systolic blood pressure 154 mm[Hg] Dr. Nguyễn Stark Work Phone: [facility] 03-24-2022 22:33-0500 Heart rate 52 /min [facility] 03-24-2022 22:33-0500 Respiratory rate 19 /min [facility] 03-24-2022 20:12-0500 Body height 167.64 cm [facility] Work Phone: 03-24-2022 20:12-0500 Body mass index (BMI) [Ratio] 29 kg/m2 [facility] 03-24-2022 20:12-0500 Body weight 81.6 kg [facility] 03-24-2022 19:57-0500 Body temperature 98.3 [degF] [facility] 03-24-2022 19:57-0500 Diastolic blood pressure 77 mm[Hg] [facility] 03-24-2022 19:57-0500 SaO2% (BldA) [Mass fraction] 100 % [facility] 03-24-2022 19:57-0500 Systolic blood pressure 164 mm[Hg] [facility] 02-26-2022 18:52-0500 Diastolic blood pressure 68 mm[Hg] [facility] 02-26-2022 18:52-0500 Heart rate 74 /min [facility] 02-26-2022 18:52-0500 Respiratory rate 16 /min [facility] 02-26-2022 18:52-0500 SaO2% (BldA) [Mass fraction] 99 % [facility] 02-26-2022 18:52-0500 Systolic blood pressure 137 mm[Hg] [facility] 02-26-2022 14:32-0500 Body height 167.64 cm [facility] Work Phone: 02-26-2022 14:32-0500 Body mass index (BMI) [Ratio] 28.2 kg/m2 [facility] 02-26-2022 14:32-0500 Body temperature 97.5 [degF] [facility] 02-26-2022 14:32-0500 Body weight 79.37 kg [facility] 02-17-2022 21:41-0500 Diastolic blood pressure 74 mm[Hg] [facility] 02-17-2022 21:41-0500 Heart rate 56 /min [facility] 02-17-2022 21:41-0500 Respiratory rate 15 /min [facility] 02-17-2022 21:41-0500 SaO2% (BldA) [Mass fraction] 98 % [facility] 02-17-2022 21:41-0500 Systolic blood pressure 147 mm[Hg] [facility] 02-17-2022 19:41-0500 Body height 167.64 cm [facility] Work Phone: 02-17-2022 19:41-0500 Body mass index (BMI) [Ratio] 29.7 kg/m2 [facility] 02-17-2022 19:41-0500 Body temperature 97.6 [degF] [facility] 02-17-2022 19:41-0500 Body weight 83.4 kg [facility] 12-15-2021 23:43-0400 Diastolic blood pressure 71 mm[Hg] [facility] Work Phone: 12-15-2021 23:43-0400 Heart rate 56 /min [facility] Work Phone: 12-15-2021 23:43-0400 Respiratory rate 20 /min [facility] Work Phone: 12-15-2021 23:43-0400 SaO2% (BldA) [Mass fraction] 97 % [facility] Work Phone: 12-15-2021 23:43-0400 Systolic blood pressure 154 mm[Hg] [facility] Work Phone: 12-15-2021 21:23-0400 Body height 167.64 cm [facility] Work Phone: 12-15-2021 21:23-0400 Body mass index (BMI) [Ratio] 30.2 kg/m2 [facility] Work Phone: 12-15-2021 21:23-0400 Body temperature 98.3 [degF] [facility] Work Phone: 12-15-2021 21:23-0400 Body weight 84.9 kg [facility] Work Phone: Encounters Encounter Date Encounter Type Care Provider Facility Start: 10-04-2024 End: 10-04-2024 Patient encounter procedure Brittney LAWRENCE -[facility] Work Phone: Start: 10-04-2024 End: 10-04-[address] Nguyễn Stark MD Work Phone: [facility] Work Phone: Start: 09-23-2024 End: 09-23-[address] Nguyễn Stark MD Work Phone: [facility] Work Phone: Start: 09-23-2024 End: 09-23-[address] Nguyễn Stark MD -Radiology [facility] Work Phone: Start: 09-23-2024 End: 09-23-2024 ambulatory Nguyễn Stark Facility:[facility] Start: 09-07-2024 End: 09-07-[address] Nguyễn Stark MD Work Phone: [facility] Work Phone: Start: 09-07-2024 End: 09-07-[address] Nguyễn Stark MD -Radiology [facility] Work Phone: Start: 09-07-2024 End: 09-07-2024 ambulatory Nguyễn Stark Facility:[facility] Start: 08-30-2024 ambulatory Nguyễn Stark Facility:[facility] Start: 08-30-2024 Non-patient / Non-visit Jose Luis Cooper nd DO -[facility] Start: 08-30-2024 End: 08-30-2024 Admission to same day surgery center Jose Luis Dao DO -Endoscopy Work Phone: Start: 08-30-2024 End: 08-30-[address] 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; Encounter for other preprocedural examination Start: 08-18-2024 End: 08-18-2024 Patient encounter status Keely Eubanks APRN.AIR BAG STRIPPER Work Phone: [facility] Start: 08-18-2024 End: 08-18-2024 ambulatory [facility] Facility:[facility] Start: 08-18-2024 End: 08-18-2024 Subsequent hospital visit by physician Terrell Maurer (I-Stat) Work Phone: Radiology Comment on above: Abdominal aortic ane urysm (AAA), unspecified part, unspecified whether ruptured [I71.40] Start: 08-03-2024 End: 08-03-2024 Patient encounter procedure Britntey LAWRENCE -[facility] Work Phone: Start: 08-03-2024 End: 08-03-2024 ambulatory [facility] Facility:[facility] Start: 06-07-2024 End: 06-07-[address] Nguyễn Stark MD -Laboratory Phy Office 3rd Flr Start: 06-07-2024 End: 06-07-2024 ambulatory [facility] Facility:[facility] Start: 05-14-2024 End: 05-14-2024 Refill Sabina Oconnor APRN.[employer] Work Phone: Cardiology Comment on above: Refill Request Start: 03-08-2024 End: 03-08-2024 ambulatory [facility] Start: 03-06-2024 End: 03-07-2024 Emergency department patient visit [facility] Facility:[facility] Start: 12-04-2023 End: 12-04-2023 ambulatory [facility] Facility:[facility] Start: 09-25-2023 Telephone encounter Harjit mast MD Work Phone: Cardiothoracic Comment on above: Follow Up Start: 08-20-2023 End: 08-20-2023 Patient encounter procedure Harjit Thorpe MD Work Phone: Cardiothoracic Comment on above: 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) Start: 08-20-2023 End: 08-20-2023 Subsequent hospital visit by physician Terrell Maruer (I-Stat) Work Phone: Radiology Comment on above: 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] Start: 07-24-2023 ambulatory Leticia Rouse RN [facility] Start: 06-03-2023 End: 06-03-2023 ambulatory [facility] Work Phone: Start: 06-03-2023 End: 06-03-2023 Patient encounter procedure [facility]-Laboratory, Phy Office 3rd Flr Start: 05-23-2023 Refill Sabina Oconnor APRN.[employer] Work Phone: Cardiology Comment on above: Refill Request Start: 04-25-2023 End: 04-25-2023 ambulatory [facility] Work Phone: Start: 04-25-2023 End: 04-25-2023 Patient encounter procedure [facility]-Pulmonary Services/Neurology Work Phone: Start: 04-23-2023 End: 04-23-2023 ambulatory [facility] Work Phone: Start: 04-23-2023 End: 04-23-2023 Patient encounter procedure [facility]-Laboratory, Phy Office 3rd Flr Start: 04-20-2023 End: 04-20-2023 Emergency department patient visit NGUYỄN STARK Facility:[id number] Start: 01-07-2023 ambulatory Lisa MILLERMckay [facility] Start: 11-27-2022 End: 11-27-2022 ambulatory [facility] Work Phone: Start: 11-27-2022 End: 11-27-2022 Patient encounter procedure [facility]-Laboratory, Phy Office 3rd Flr Start: 10-11-2022 ambulatory Priyanka Oneil Research Coordinator [facility] Start: 09-20-2022 End: 09-20-2022 Patient encounter procedure Karoline Gabriella [facility] Work Phone: [facility] Comment on above: Dissection of ascend ing aorta (HCC) (Primary Dx) Start: 09-20-2022 End: 09-20-2022 Subsequent hospital visit by physician Ct [address] Q[address] (I-Stat) Radiology Comment on above: Dissection of aorta, unspecified portion of aorta (HCC) [I71.00] Start: 08-05-2022 ambulatory Leticia Rouse RN [facility] Start: 07-09-2022 Telephone encounter Stephanie NGUYEN Comment on above: Follow Up Phone Call (RC f/u 1st attempt/) Start: 07-05-2022 Orders Only Benton Schwarz MD Work Phone: Cardiology Comment on above: Dissection of ascend ing aorta (HCC) (Primary Dx) Start: 07-01-2022 Patient encounter status Harjit Thorpe MD Work Phone: [facility] Work Phone: Start: 06-27-2022 End: 06-27-2022 Patient encounter procedure Donnie Jiang DMD Work Phone: Dentistry Comment on above: Dental caries on pit and fissure surface penetrating into dentin (Primary Dx) Start: 06-26-2022 End: 06-26-2022 Admission to same day surgery center Anesthesia Clearance Work Phone: Cardiothoracic Start: 06-26-2022 End: 06-26-2022 Preprocedural examination done [facility] Work Phone: Cardiothoracic Start: 06-26-2022 ambulatory Priyanka Oneil Research Coordinator [facility] Start: 06-26-2022 End: 06-26-2022 Patient encounter procedure Anesthesia Clearance Work Phone: Cardiothoracic Comment on above: Encounter for preope rative anesthesiology assessment for cardiac surgery (Primary Dx) Pre-op exam (Primary Dx) 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) Encounter for screen ing for cardiovascular disorders; Disorder of artery or arteriole (HCC); Encounter for other preprocedural examination; Dissection of thoracoabdominal aorta (HCC); Dissection of carotid artery (HCC); Pre-op testing Start: 06-26-2022 End: 06-26-2022 Patient encounter status Harjit Thorpe MD Work Phone: [facility] Start: 06-26-2022 End: 06-26-2022 Subsequent hospital visit by physician Harjit Thorpe MD Work Phone: Radiology Comment on above: 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] Start: 06-25-2022 End: 06-25-2022 Admission to same day surgery center Sayda Browning DMD Work Phone: Dentistry Start: 06-25-2022 End: 06-25-2022 Patient encounter procedure Sayda Browning DMD Work Phone: Dentistry Comment on above: Encounter for preope rative anesthesiology assessment for cardiac surgery (Primary Dx) Start: 06-25-2022 End: 06-25-2022 Patient encounter status Card Injection Molecular Imagi ng Start: 06-25-2022 End: 06-25-2022 Subsequent hospital visit by physician Card Injection Molecular Imaging Comment on above: Encounter for screen ing for cardiovascular disorders [Z13.6] Start: 06-10-[address] 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 Nguyễn renner Work Phone: [facility]-Occupational Therapy Start: 05-31-2022 End: 05-31-[address] Nguyễn Stark Work Phone: [facility] Work Phone: Start: 05-31-2022 End: 05-31-[address] Nguyễn Stark Work Phone: [facility]-Sleep Lab Start: 05-30-2022 End: 05-30-[address] Nguyễn Stark Work Phone: [facility] Work Phone: Start: 05-30-2022 End: 05-30-[address] Nguyễn Stark Work Phone: [facility]-Laboratory, Phy Office 3rd Flr Start: 05-14-2022 Telephone encounter Harjit mast MD Work Phone: Cardiothoracic Comment on above: Referral Information (Consult with Dr. 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 Nguyễn Stark Work Phone: [facility]-Pulmonary Medicine [facility] Start: 04-22-2022 End: 04-22-[address] Nguyễn Stark Work Phone: [facility] Start: 04-03-2022 Non-patient / Non-visit Dr. Marcio Stark Work Phone: [facility] Start: 04-03-2022 End: 04-03-[address] Nguyễn Stark Work Phone: [facility] Work Phone: Start: 04-03-2022 End: 04-03-[address] Nguyễn Stark Work Phone: [facility]-Cardiovascular Services Start: 03-24-2022 End: 03-24-2022 Emergency department patient visit [facility]-Emergency Department Start: 02-26-2022 End: 02-26-2022 Emergency department patient visit [facility]-Emergency Department Start: 02-21-2022 Telephone encounter Benton perry MD Work Phone: Cardiology Comment on above: Received Outside [facility] Records Start: 02-20-2022 End: 02-20-2022 Patient encounter procedure [facility] Start: 02-19-2022 End: 02-19-2022 ambulatory [facility] Work Phone: Start: 02-19-2022 End: 02-19-2022 Patient encounter procedure [facility]-Laboratory Start: 02-17-2022 End: 02-17-2022 Emergency department patient visit [facility]-Emergency Department Start: 02-07-2022 Orders Only Benton Schwarz MD Work Phone: Cardiology Comment on above: Chest pain due to my ocardial ischemia, unspecified ischemic chest pain type (Primary Dx) Start: 12-15-2021 End: 12-15-2021 Emergency department patient visit [facility]-Emergency Department Start: 12-05-2021 End: 12-05-2021 Discharged Recurring [facility]-Occupational Therapy Start: 12-05-2021 Registered Recurring [facility]-Occupational Therapy Start: 11-29-2021 End: 11-29-2021 ambulatory [facility] Work Phone: Start: 11-29-2021 End: 11-29-2021 Patient encounter procedure [facility]-Laboratory, Phy Office 3rd Flr Start: 11-28-2021 Registered Recurring [facility]-Occupational Therapy Start: 06-03-2018 Admission to [facility] Benton Schwarz MD Work Phone: [facility] Work Phone: Start: 06-02-2018 Patient encounter status Jil Schwarz MD Work Phone: [facility] Start: 01-07-2018 End: 01-07-2018 Patient encounter DHEERAJ VACA [facility] Start: 12-18-2017 End: 12-18-2017 Patient encounter TORRI DOWNS [facility] Start: 07-22-2017 End: 07-22-2017 Evaluation and management of inpatient DAVION DOWNS Facility:[facility] Start: 07-22-2017 End: 07-22-2017 Patient encounter TORRI DOWNS [facility] Start: 07-21-2017 Patient encounter procedure JAZMIN ORTIZ Facility:[facility] Start: 03-21-2017 Ambulatory UNKNOWN PROVIDER [facility] Procedures Date Procedure Procedure Detail Performing Clinician Start: 09-23-2024 X-ray of esophagus with double contrast Dr. Nguyễn Stark MD Work Phone: Start: 09-07-[address] Nguyễn Stark MD Work Phone: Start: 08-30-[address] Nguyễn Stark MD Work Phone: Start: 08-18-2024 Ct angio abd&plvis cntrst mtrl w/wo cntrst elle Thorpe MD Work Phone: Start: 08-18-2024 Ct angiography chest w/contrast/noncontrast Harjit Thorpe MD Work Phone: Start: 06-07-2024 Measurement of renal function Dr. Nguyễn valencia MD Work Phone: Comment on above: GFR Calc Start: 08-20-2023 Ct angio abd&plvis cntrst mtrl w/wo morgan Thorpe MD Work Phone: Start: 08-20-2023 Ct angiography chest w/contrast/noncontrast Harjit Thorpe MD Work Phone: Start: 04-25-2023 SARS-CoV-2, Influenza & RSV (PCR) Start: 04-23-2023 Bacteria identified in Blood by Culture Start: 09-20-2022 Ct angio abd&plvis cntrst mtrl w/wo cntrst img Neema Finch CHAIN BUILDER.[employer] Work Phone: Start: 09-20-2022 Ct angiography chest w/contrast/noncontrast Neema Finch CH[employer] BUILDER.[employer] Work Phone: Start: 09-20-2022 Lipid 1996 panel - Serum or Plasma Lisa Goddard Start: 06-27-2022 19 EXTRACTION, ERUPTED TOOTH REQUIRING REMOVAL OF BONE AND/OR SECTIONING OF TOOTH, AND INCLUDING ELEVATION OF MUCOPERIOSTE [place] DMD Work Phone: Start: 06-26-2022 Iadna s aureus amplified probe tq Harjit Thorpe MD Work Phone: Start: 06-26-2022 Ct angio abd&plvis cntrst mtrl w/wo cntrst im Keely Eubanks CHAIN BUILDER.AIR BAG STRIPPER Work Phone: Start: 06-26-2022 Ct angiography chest w/contrast/noncontrast Keely Eubanks APRN.AIR BAG STRIPPER Work Phone: Start: 06-26-2022 Ct angiography head w/contrast/noncontrast Xavier Pollard MD Work Phone: Start: 06-26-2022 Ct angiography neck w/contrast/noncontrast Xavier Pollard MD Work Phone: Start: 06-25-2022 Myocardial spect multiple studies Keely Eubanks CHAIN BUILDER.AIR BAG STRIPPER Work Phone: Start: 05-13-2022 Ct angiography chest w/contrast/noncontrast Benton Schwarz MD Work Phone: Start: 04-22-2022 MRI of brain without contrast Dr. Nguyễn valencia Work Phone: Start: 03-24-2022 CT of head without contrast Start: 02-26-2022 Plain chest X-ray Start: 02-20-2022 Computed tomography of abdomen and pelvis with contrast Start: 12-15-2021 CT of thorax, abdomen and pelvis with contrast Start: 06-21-2020 Colonoscopy Benton Schwarz MD Work Phone: H/O: surgery Hx of myringotomy H/O: vasectomy History of vasectomy History of appendectomy History of appendectomy History of carotid endarterectom y History of bilateral carotid endarterectomy Influenza Types A,B Direct FA (JUAN JOSE) Influenza Types A,B Direct FA (JUAN JOSE) Dr. Nguyễn Stark Work Phone: Respiratory syncytia l virus antigen assay Respiratory syncytia l virus antigen assay Dr. Nguyễn Stark Work Phone: Viral antigen assay Plan of Treatment Date Care Activity Detail Author Start: 09-21-2027 Lipid 1996 panel - Serum or Plasma Lipid Screening [facility] Start: 09-21-2027 Lipid panel Lipid Screening [facility] Start: 09-21-2027 LIPID SCREEN LIPID SCREEN [facility] Start: 04-20-2026 Diabetes Screening Diabetes Screening [facility] Start: 09-20-2025 DIABETES SCREEN DIABETES SCREEN [facility] Start: 09-20-2025 Diabetes Screening Diabetes Screening [facility] Start: 07-05-2025 DIABETES SCREEN DIABETES SCREEN [facility] Start: 07-02-2025 DIABETES SCREEN DIABETES SCREEN [facility] Start: 06-25-2025 DIABETES SCREEN DIABETES SCREEN [facility] Start: 09-07-2024 Videoswallow [facility] Start: 08-30-2024 Egd transoral biopsy single/multiple EGD BIOPSY SINGLE/MULTIPLE [facility] Start: 08-30-2024 Patient discharge [facility] Start: 08-17-2024 End: 08-17-2024 Patient encounter procedure Radiology Comment on above: Abdominal aortic aneurysm (AAA), unspeci fied part, unspecified whether ruptured (HCC) [I71.40] 12 month follow up Start: 12-14-2023 Covid-19 Vaccine ( season) Covid-19 Vaccine () [facility] Start: 12-14-2023 Influenza vaccination [facility] Start: 06-19-2023 LIPID SCREEN LIPID SCREEN [facility] Start: 04-14-2023 Behavioral Health Screening Behavioral Health Screening [facility] Start: 04-14-2023 Depression Assessment Depression Assessment [facility] Start: 12-13-2022 Covid-19 Vaccine () Covid-19 Vaccine () [facility] Start: 12-13-2022 Influenza vaccination Influenza Vaccine (#1) [facility] Start: 09-12-2022 End: 11-12-2022 CBC panel - Blood by Automated count CBC Lab Routine Dissection of ascending aorta (HCC) Expected: 09/12/2022, Expires: 11/12/2022 [facility] Work Phone: Comment on above: Expected: 09/12/2022, Expires: 3 Start: 09-12-2022 End: 11-12-2022 Comprehensive metabolic 2000 panel - Serum or Plasma COMP METABOLIC PANEL Lab Routine Dissection of ascending aorta (HCC) Expected: 09/12/2022, Expires: 11/12/2022 [facility] Work Phone: Comment on above: Expected: 09/12/2022, Expires: 3 Start: 09-12-2022 End: 11-12-2022 Lipid 1996 panel - Serum or Plasma LIPID PANEL BASIC Lab Routine Dissection of ascending aorta (HCC) Expected: 09/12/2022, Expires: 11/12/2022 [facility] Work Phone: Comment on above: Expected: 09/12/2022, Expires: 3 Start: 04-14-2022 DEPRESSION ASSESSMENT DEPRESSION ASSESSMENT [facility] Start: 02-26-2022 [facility] Start: 12-15-2021 Blood chemistry [facility] Work Phone: Start: 12-15-2021 [facility] Work Phone: Start: 09-01-2022 Influenza vaccination INFLUENZA (#1) [facility] Start: 07-13-2021 DIABETES SCREEN DIABETES SCREEN [facility] Start: 06-21-2021 Colonoscopy COLONOSCOPY [facility] Start: 06-21-2021 COLORECTAL CANCER SCREENING COLORECTAL CANCER SCREENING [facility] Start: 04-14-2021 DEPRESSION ASSESSMENT DEPRESSION ASSESSMENT [facility] Start: 04-10-2021 COVID-19 VACCINE (4 - Booster for Moderna series) COVID-19 VACCINE (4 - Booster for Moderna series) [facility] Start: 09-12-2019 COLOGUARD (FIT-DNA) COLOGUARD (FIT-DNA) [facility] Start: 09-12-2019 Colonoscopy COLONOSCOPY [facility] Start: 09-12-2019 COLORECTAL CANCER SCREENING COLORECTAL CANCER SCREENING [facility] Start: 09-12-[address] COLONOGRAPHY [facility] Start: 09-12-2019 FECAL OCCULT BLOOD FECAL OCCULT BLOOD [facility] Start: 09-12-2019 Screening for malignant neoplasm of colon [facility] Start: 09-12-2019 SIGMOIDOSCOPY SIGMOIDOSCOPY [facility] Start: 1993 Hepatitis B Vaccine (1 of 3 - 19+ 3-dose series) Hepatitis B Vaccine (1 of 3 - 19+ 3-dose series) [facility] Start: 1993 Urine microalbumin profile [facility] Start: 1992 Anxiety Screening Anxiety Screening [facility] Start: 1992 Depression Screening Depression Screening [facility] Start: 1992 HEPATITIS C SCREENING HEPATITIS C SCREENING [facility] Start: 1992 Hepatitis C screening Hepatitis C Screening [facility] Start: 1992 HIV SCREENING HIV SCREENING [facility] Start: 1992 HIV screening HIV Screening [facility] Start: 1974 HEPATITIS B (1 of 3 - 3-dose series) HEPATITIS B (1 of 3 - 3-dose series) [facility] Start: 1974 Hepatitis B Vaccine (1 of 3 - 3-dose series) Hepatitis B Vaccine (1 of 3 - 3-dose series) [facility] 19 EXTRACTION, ERUPT ED TOOTH REQUIRING REMOVAL OF BONE AND/OR SECTIONING OF TOOTH, AND INCLUDING ELEVATION OF MUCOPERIOSTE 19 EXTRACTION, ERUPTED TOOTH REQUIRING REMOVAL OF BONE AND/OR SECTIONING OF TOOTH, AND INCLUDING ELEVATION OF MUCOPERIOSTE Dental Routine 1 Occurrences starting 06/25/2022 [facility] Work Phone: Comment on above: 1 Occurrences starting 06/25/2022 End: 03-09-2023 Ct angiography chest w/contrast/noncontrast CTA CHEST (GATED) W IVCON Radiology Routine Chest pain due to myocardial ischemia, unspecified ischemic chest pain type 1 Occurrences starting 02/07/2022 until 03/09/2023 [facility] Work Phone: Comment on above: 1 Occurrences starting 02/07/2022 until 03/09/2023 End: 10-24-2024 CTA Abdominal vessels and Pelvis vessels WO and W contrast IV CTA ABD/PEL WO/W IVCON Radiology Routine Abdominal aortic aneurysm (AAA), unspecified part, unspecified whether ruptured (HCC) 1 Occurrences starting 09/25/2023 until 10/24/2024 [facility] Comment on above: 1 Occurrences starting 09/25/2023 until 10/24/2024 End: 09-19-2025 CTA Abdominal vessels and Pelvis vessels WO and W contrast IV CTA ABD/PEL WO/W IVCON Radiology Routine Dissection of thoracoabdominal aorta (HCC) S/P AVR (aortic valve replacement) S/P ascending aortic replacement H/O aortic root repair H/O aortic arch replacement S/P insertion of endovascular thoracic aortic stent graft Encounter for other preprocedural examination 1 Occurrences starting 08/19/2024 until 09/19/2025 [facility] Comment on above: 1 Occurrences starting 08/19/2024 until 09/19/2025 End: 10-24-2024 CTA Chest vessels WO and W contrast IV CTA CHEST (NONGATED) WO/W IVCON Radiology Routine Abdominal aortic aneurysm (AAA), unspecified part, unspecified whether ruptured (HCC) 1 Occurrences starting 09/25/2023 until 10/24/2024 [facility] Work Phone: Comment on above: 1 Occurrences starting 09/25/2023 until 10/24/2024 End: 09-19-2025 CTA Chest vessels WO and W contrast IV CTA CHEST (NONGATED) WO/W IVCON Radiology Routine Dissection of thoracoabdominal aorta (HCC) S/P AVR (aortic valve replacement) S/P ascending aortic replacement H/O aortic root repair H/O aortic arch replacement S/P insertion of endovascular thoracic aortic stent graft Encounter for other preprocedural examination 1 Occurrences starting 08/19/2024 until 09/19/2025 [facility] Work Phone: Comment on above: 1 Occurrences starting 08/19/2024 until 09/19/2025 End: 02-07-2023 ECG COMPLETE ECG COMPLETE ECG Routine Chest pain due to myocardial ischemia, unspecified ischemic chest pain type 1 Occurrences starting 02/07/2022 until 02/07/2023 [facility] Work Phone: Comment on above: 1 Occurrences starting 02/07/2022 until 02/07/2023 End: 07-06-2023 ECG COMPLETE ECG COMPLETE ECG Routine Dissection of ascending aorta (HCC) 1 Occurrences starting 07/05/2022 until 07/06/2023 [facility] Work Phone: Comment on above: 1 Occurrences starting 07/05/2022 until 07/06/2023 End: 02-07-2023 Echocardiography ECHO Cardiology Routine Chest pain due to myocardial ischemia, unspecified ischemic chest pain type 1 Occurrences starting 02/07/2022 until 02/07/2023 [facility] Work Phone: Comment on above: 1 Occurrences starting 02/07/2022 until 02/07/2023 End: 07-06-2023 Echocardiography ECHO Cardiology Routine Dissection of ascending aorta (HCC) 1 Occurrences starting 07/05/2022 until 07/06/2023 [facility] Work Phone: Comment on above: 1 Occurrences starting 07/05/2022 until 07/06/2023 End: 08-19-2025 Echocardiography ECHO Cardiology Routine Dissection of thoracoabdominal aorta (HCC) S/P AVR (aortic valve replacement) S/P ascending aortic replacement H/O aortic root repair H/O aortic arch replacement S/P insertion of endovascular thoracic aortic stent graft Encounter for other preprocedural examination 1 Occurrences starting 08/19/2024 until 08/19/2025 [facility] Comment on above: 1 Occurrences starting 08/19/2024 until 08/19/2025 Patient Education [facility] Work Phone: Patient referral [facility] Work Phone: End: 06-04-2023 US CAROTID ARTERIES [facility] US CAROTID ARTERIES [facility] Vascular Lab Routine Dissection of carotid artery (HCC) 1 Occurrences starting 06/04/2022 until 06/04/2023 [facility] Work Phone: Comment on above: 1 Occurrences starting 06/04/2022 until 06/04/2023 [facility] Immunizations Immunization Date Immunization Notes Care Provider Stanislav brandt 02-07-2022 influenza virus vaccine, unspecified formulation Lisa Goddard [facility] 02-23-2007 influenza virus vaccine, unspecified formulation Benton Schwarz MD Work Phone: [facility] Work Phone: 01-31-2006 influenza virus vaccine, unspecified formulation Benton Schwarz MD Work Phone: [facility] Work Phone: Payers Date Payer Category Payer Medicare [id number] 2023 Medicaid [id number] 2023 Self-pay [id number] 2022 Unknown [employer] T [id number] 2022-Present [phone] [address] [place] [address] O [id number] 2018 Medicaid [id number] 2018 Medicare 2018 Unknown [id number] 1974 Unknown [id number] 1974 Unknown [id number] 1974 Unknown [id number] 1974 Unknown [id number] [id number] Medicare [id number] Unknown [id number] [id number] Unknown [id number] [id number] Unknown [id number] [id number] Unknown [id number] [id number] Unknown [id number] [id number] Unknown [id number] [id number] Unknown [id number] [id number] Unknown [id number] [id number] Unknown [id number] [id number] Unknown [id number] Social History Date Type Detail Facility Start: 05-11-2021 End: 06-24-2022 Tobacco smoking status WYIS Unknown if ever smoked [facility] Start: 06-07-2020 None [facility] Start: 06-16-2020 Non-smoker [facility] Start: 1975 Sex Assigned At Male [facility] Start: 06-03-2018 End: 08-26-2024 Tobacco smoking status NHIS Ex-smoker [facility] Start: 03-11-1994 End: 03-11-2014 History of tobacco use Current smoker [facility] Start: 03-11-1994 End: 03-11-2014 History of tobacco use Cigarette Smoker [facility] Start: 06-03-2018 End: 09-20-2022 Cigarettes smoked current (pack per day) - Reported 1 [facility] Start: 06-03-2018 End: 05-13-2022 Tobacco use and exposure Former smokeless tobacco user [facility] History of tobacco use [facility] Start: 05-28-2020 End: 08-18-2024 Alcohol intake Current non-drinker of alcohol (finding) [facility] Start: 1975 Sex Assigned At Not on file [facility] Start: 06-03-2018 End: 09-20-2022 Tobacco use panel [facility] PHQ2 Score 0 [facility] Medical Equipment Procedure Code Equipment Code Equipment Original Text Equipment Identifier Dates EGD, with pH impedance probe insertion Gastrointestinal telemetric monitoring system [id number] Start: 08-30-2024 Graft Gelweave 1 0mm Straight Gelatin Polyester Woven 30cm Cardiovascular - [id number] Start: 06-04-2018 Eustace Thk1.65mm P tfe 4x.5in Cardiovascular Sterile - [id number] Start: 06-04-2018 Patch Thk.5mm Yemi vine Pericardial 38x89ao Cardiovascular Resilience Durable - [id number] Start: 06-04-2018 Valve [place] In spiris Resilia 27mm Pericardial Aortic Bioprosthesis - [id number] Start: 06-04-2018 Stent Viabahn 10 mm 11fr Heparin 2.5cm 120cm Endoprosthesis Delivert System - [id number] Start: 06-04-2018 Relaypro Nbs Tho racic Stent-Graft 21f 32mm X 209mm Straight [id number] Start: 07-01-2022 Plug Amplatzer 2 0mm .098in Nitinol Mesh 16mm 100cm Cardiovascular Type Ii - [id number] Start: 07-01-2022 Stent [place] Viaba hn 11mm 16sq Mm 8fr .035in 39mm 135cm Endoprosthesis - [id number] Start: 07-01-2022 Stent Zenith 36m m 20-30mm 16fr 6mm 180mm Vascular 9 Dissect Introducer - [id number] Start: 07-01-2022 Graft 100mm Strt [id number] - [id number] Start: 06-04-2018 Comment on above: Description: [id number] Graft Gelweave 2 8mm Straight Gelatin Polyester Woven 30cm Cardiovascular - [id number] Start: 06-04-2018 Graft Gelweave V alsalva 30mm 15cm Cardiovascular Woven Aortic Root - [id number] Start: 06-04-2018 Plug Amplatzer 1 2mm Nitinol 9mm 100cm Cardiovascular Type Ii Delivery - [id number] Start: 07-01-2022 Stent [place] Viaba hn 8mm 16sq Mm 8fr .035in 59mm 135cm Endoprosthesis Balloon - [id number] Start: 07-01-2022 Stent Viabahn 13 mm 12fr Heparin 2.5cm 120cm Endoprosthesis Delivery System - [id number] Start: 06-04-2018 Stent Absolute P ro 8mm Nitinol 40mm 135cm Biliary Self Expandable - [id number] Start: 07-01-2022 Goals Date Patient Goal Desired Activity /State Personal health goal Functional Status Date Assessment Result Facility 07-05-2022 Are you deaf, or do you have serious difficulty hearing No 07/05/2022 1:02 PM Lily Barnes RN No [facility] 07-05-2022 Are you blind, or do you have serious difficulty seeing, even when wearing glasses No 07/05/2022 1:02 PM Lily Barnes RN No [facility] 07-05-2022 Do you have serious difficulty walking or climbing stairs No 07/05/2022 1:02 PM Lily Barnes, [facility] No [facility] 07-05-2022 Do you have difficul ty dressing or bathing No 07/05/2022 1:02 PM EDLily Nelson, [facility] No [facility] 07-05-2022 Because of a physica l, mental, or emotional condition, do you have difficulty doing errands alone such as visiting a physician's office or shopping No 07/05/2022 1:02 PM EDT Lily Barrios, RN No [facility] Mental Status Date Assessment Result Facility 08-30-2024 Cognitive function Touch/Shaking [facility] Work Phone: 08-30-2024 Cognitive function Patient Orien tation Person;Place;Time [facility] Work Phone: 07-05-2022 Because of a physica l, mental, or emotional condition, do you have serious difficulty concentrating, remembering, or making decisions No 07/05/2022 1:02 PM EDLily Nelson, [facility] No [facility] 02-26-2022 Cognitive function Level Of Cons ciousness Awake;Alert;Appropriate;Fol lows Commands [facility] Work Phone: 02-17-2022 Cognitive function Level Of Cons ciousness Awake;Alert;Appropriate [facility] Work Phone: 12-15-2021 Cognitive function Voice/Name [facility] Work Phone: Clinical Notes 06-05-2018 to 09-23-2024 Note Date & Type Note Facility 09-23-2024 Radiology Diagnostic study note [facility] Imaging Services [address] [place] [address] Esophagus Dual Contrast MR#: [id number] Acct: [id number] Name: BECK FRAGA Rep #: [id number] : 1975 M 49 From: Wilton Loera MD PCP: Dr. Nguyễn Stark MD Status: REG C LARON Study:Esophagus Dual Contrast Date of Exam: 09/23/24 Exam# [id number] Ordering Dr: Nguyễn Stark MD PROCEDURE: ESOPHAGUS DUAL CONTRAST 09/23/2024 REASON FOR EXAM: DYSPHAGIA TECHNIQUE: The patient ingested barium. Multiple images were obtained. Fluoroscopy: 33 seconds. 4.5 mGy. COMPARISON: None FINDINGS: The esophagus is unremarkable. No evidence of obstruction. No evidence of gastroesophageal reflux. The patient ingested a 12 mm tablet the barium without any difficulty. There is evidence of prior aortic stenting. RAD/Esophagus Dual Contrast IMPRESSION: Unremarkable dual contrast esophagram. Reading Location: [place] [address] CC: Dr. Nguyễn Stark MD ~ Conduit Reamer Operator: Signed [facility] 09-07-2024 Procedure note [facility] 08-30-2024 Consult note Note Date/Time August 30, 2024 7:11am [facility] Medical Records Department [address] [facility] [place] [place] [address] Pre-Anesthesia Evaluation 08/30/24 0711 MR#: [id number] Acct: [id number] Name: BECK FRAGA Rep #:[id number] : 1975 48 From: Brando Hilario MD PCP: Dr. Nguyễn Stark MD Status:REG S DC Y Race: C Location: [place] [address] ASA Classification* ASA Classification ASA Classification: 2 Assessment & Plan Anesthesia* Anesthesia Assessment Anesthesia Assessment: Discussed sedation and/or anesthesia options, risks, benefits, and alternatives with patient/parents/legal guardian/POA. Questions invited. The patient/parents/legal guardian/POA seems to understand and agrees to proceedwith anesthesia plan. Reviewed the physical assessment, medical history, allergy history and patient home medications list prior to surgery/procedure/anesthetic and documented any changes. Performed airway and anesthesia risk assessments. Anesthesia Type Anesthesia Type: MAC Anesthesia Focused Assessment* Temperature: 97.6 F Pulse Rate: 44 Blood Pressure: 148/63 Respiratory Rate: 18 Pulse Ox: 98 Airway Assessment Mouth opens: >3 cm Mallampati Score: II Focused Labs Anesthesia Preop lab: CBC WBC 7.5 K/mm3 (4.4-11.0) 06/07/24 13:00 06/07/24 RBC 5.45 M/mm3 (4.6-6.2) 06/07/24 13:00 06/07/24 Hgb 15.5 g/dL (13.0-16.5) 06/07/24 13:00 06/07/24 Hct 46.8 % (40-54) 06/07/24 13:00 06/07/24 Plt Count 209 K/mm3 (150-450) 06/07/24 13:00 06/07/24 CHEMISTRY Potassium 4.1 mmol/L (3.5-5.1) 06/07/24 13:00 06/07/24 Sodium 140 mmol/L (136-145) 06/07/24 13:00 06/07/24 BUN 14 mg/dL (7-18) 06/07/24 13:00 06/07/24 Creatinine 1.10 mg/dL (0.70-1.30) 06/07/24 13:00 06/07/24 Glucose 76 mg/dL (74-106) 06/07/24 13:00 06/07/24 POC Glucose 99 mg/dL (70-110) 06/26/20 20:27 06/26/20 TSH 3.710 uIU/mL (0.358-3.740) 06/07/24 13:00 05/16 08/06 COAG PT 13.9 SECONDS (11.7-14.9) 03/31/14 23:10 Pre-Assessment Diagnosis/Proposed Procedure Planned Operative Procedure(s): EGD WITH PH PROBE Anesthesia History Anesthesia History - marketing operations specialist: Anesthesia History - marketing operations specialist Hx Hospitalization No 08/26/24 08:47 Any Problems With Anesthesia No 08/26/24 08:47 Cholinesterase deficiency No 08/26/24 08:47 You/Your Family Experience No 08/26/24 08:47 fever (hyperthermia) with Relationship Recent Exposure to Contagious No 08/30/24 06:06 Disease Does patient have nerve No 08/26/24 08:47 stimulator Patient instructed to have device shut off --Does patient have Pacemaker No 08/30/24 06:06 or ICD? When Was Last Pacemaker Check QUESTION #4 FULL TEXT: You/Your Family Experience fever (hyperthermia) with Anesthesia Last Oral Intake Last Oral intake: Last Oral Intake NPO since 00:00 08/30/24 06:06 Meds taken in AM with sips of water? 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 - marketing operations specialist: PONV - marketing operations specialist Female No 08/26/24 08:47 HX of Motion Sickness No 08/26/24 08:47 HX of N/V After Surgery No 08/26/24 08:47 Non-Smoker Yes 08/26/24 08:47 Duration of Surgery greater No 08/26/24 08:47 than 60 minutes Number of Risk Factors 1 08/26/24 08:47 PONV Score Low Risk 08/26/24 08:47 Height & Weight Height & Weight: Anesthesia: Height & Weight Height 5 ft 6.14 in 08/30/24 06:06 Weight: 83 kg 08/30/24 06:06 Body Mass Index (BMI) 29.4 08/30/24 06:06 Respiratory Assessment Respiratory Assessment - marketing operations specialist: Respiratory Tract Infection Hx - marketing operations specialist Hx Respiratory Tract Infection No 08/26/24 08:47 STOP Sleep Apnea STOP Sleep Apnea - marketing operations specialist: STOP Sleep Apnea - marketing operations specialist Hx Hypertension Yes 08/26/24 08:47 Hx Sleep Apnea No 08/26/24 08:47 CPAP BIPAP Do you snore loudly (louder No 08/26/24 08:47 than talking or can be heard Do you often feel tired/ No 08/26/24 08:47 fatigued/ sleepy during daytime? Has anyone observed you stop No 08/26/24 08:47 breathing during sleep? STOP Results Negative 08/26/24 08:47 QUESTION #5 FULL TEXT : Do you snore loudly (louder than talking or can be heard through closed doors)? 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 Specify any problems Hx of Preganancy in last 3 N/A 08/26/24 08:47 Months Nurse Filling Out Transfusion [facility] 08/26/24 08:47 & Questions: Date: 08/26/24 08/26/24 08:47 Time: 08:59 08/26/24 08:47 Patient unable to answer at this time (ie. confused, unrespo /Reproduction History /Reproductive History - marketing operations specialist: /Reproductive Hx- marketing operations specialist Hx Now Gestational Age (in weeks): EDC: Hx Hx Para Hx Section SAB Active Medications Active Medications: Current Medications Generic Name Dose Route Start Last Admin Trade Name Freq PRN Reason Stop Dose Admin Lactated Ringer's 1,000 mls @ 15 mls/hr 08/30/24 06:15 08/30/24 06:16 IV 15 mls/hr .Q48H [place] Administration PFSH Medical History Wears glasses Depression Marijuana use Fatty liver Cirrhosis High cholesterol Migraine headache Diverticulosis Heartburn Gastric reflux Former smoker History of echocardiogram Cardiology follow-up encounter Abdominal aortic aneurysm dissection Dysautonomia-like disorder Seizure GERD (gastroesophageal reflux disease) Pneumonia Hearing problem Back problem Constipation Diarrhea Nausea & vomiting Abdominal pain Heart murmur Afib History of carotid artery dissection CVA (cerebral vascular accident) Thoracoabdominal aortic dissection Hyperlipidemia Bicuspid aortic valve Home Medications ?Medication ?Instructions ?Recorded ?Last Taken ?Type aspirin 81 mg chewable tablet 81 mg PO DAILY 12/30/15 08/27/24 History clopidogrel 75 mg tablet 75 mg PO DAILY 10/26/1608/12 History metoprolol succinate 25 mg 12.5 mg PO BID 02/05/20 History tablet,extended release 24 hr atorvastatin 40 mg tablet 40 mg PO QDAY 07/30/2408/29 History famotidine 40 mg tablet 40 mg PO QHS #30 tabs 08/27/24 Rx pantoprazole 40 mg tablet,delayed 40 mg PO BID #60 tab s 08/03/24 08/27/24 Rx release Allergy/AdvReac Type Severity Reaction Status Date / Time oxycodone (From Percocet) Allergy Shortness Verified 08/26/24 08:40 of breath citalopram (From Celexa) AdvReac erectile Verified 08/26/24 08:40 dysfunction Family History Father CVA (cerebral vascular accident) Heart disease Hypertension Myocardial infarction Grandfather CAD (coronary artery disease) Mother CVA (cerebral vascular accident) Hypertension Heart disease IPF (idiopathic pulmonary fibrosis) Other Cervical cancer Colon cancer Diabetes Ovarian cancer Surgical History History of bilateral carotid endarterectomy History of thoracic aortic aneurysm repair (05/2018) Hx of myringotomy History of appendectomy History of vasectomy History of aortic valve replacement (06/04/18) Social History household members: none Smoking Status: Former smoker alcohol intake: never substance use type: does not use caffeine: No what type of physical activity do you participate in: walking frequency: daily duration: < 15 minutes/day seatbelt use: always do you feel safe at home: Yes Review of Systems (Anesthesia) ROS Narrative System reviewed and no additional complaints, except as documented. 08/30/24710 <Electronically signed by Brando Hilario MD > Date _ Brando Hilario MD Cosigner Signature: Date CC: ~ Signed [facility] Work Phone: [phone]) 402-692805-19-2025 History and physical note Author Jose Luis Friend [facility] Note Date/Time August 30, 2024 7:03a [facility] Medical Records Department [address] [place] [address] [place] [address] History & Physical Exam 08/30/24 0702 MR#: [id number] Acct: [id number] Name: BECK FRAGA Rep #:[id number] : 1975 48 From: Jose Luis Dao DO PCP: Dr. Nguyễn Stark MD Status:REG S DC Location: [place] [address] HPI - General General Date of Admission: 08/30/24 Date of Service: 08/30/24 Chief Complaint: dysphagia HPI Narrative BECK FRAGA, is a 48 M who presents regarding globus sensation behind his cricoid cartilage and epigastric heartburn. He states eating food, especially drinking milk, helps the epigastric pain briefly and then 10 to 15 minutes laterit's very painful again. He reports that manual external manipulation of his upper throat will some times alleviate the globus sensation, but not always. He has a significant vascular history of multiple aortic dissections and a stroke being managed by [facility]. His PCP has stopped his omeprazole, given him 30 days trial of vonoprazan of which he's been on for a week now but has not noticed a change in symptoms, improvement or worsening. He has been given simethicone which he states has made the most difference in his abdominal pain. has already ordered and MBSS, esophagram, and a consult to ENT. He notes that BBQ and tomatoes worsen epigastric pain. He reports a familial history of diverticula and colon cancer. [facility] Medical History Wears glasses Depression Marijuana use Fatty liver Cirrhosis High cholesterol Migraine headache Diverticulosis Heartburn Gastric reflux Former smoker History of echocardiogram Cardiology follow-up encounter Abdominal aortic aneurysm dissection Dysautonomia-like disorder Seizure GERD (gastroesophageal reflux disease) Pneumonia Hearing problem Back problem Constipation Diarrhea Nausea & vomiting Abdominal pain Heart murmur Afib History of carotid artery dissection CVA (cerebral vascular accident) Thoracoabdominal aortic dissection Hyperlipidemia Bicuspid aortic valve Home Medications ?Medication ?Instructions ?Recorded ?Last Taken ?Type aspirin 81 mg chewable tablet 81 mg PO DAILY 12/30/15 08/27/24 History clopidogrel 75 mg tablet 75 mg PO DAILY 10/26/1608/12 History metoprolol succinate 25 mg 12.5 mg PO BID 02/05/20 History tablet,extended release 24 hr atorvastatin 40 mg tablet 40 mg PO QDAY 07/30/2408/29 History famotidine 40 mg tablet 40 mg PO QHS #30 tabs 08/27/24 Rx pantoprazole 40 mg tablet,delayed 40 mg PO BID #60 tab s 08/03/24 08/27/24 Rx release Allergy/AdvReac Type Severity Reaction Status Date / Time oxycodone (From Percocet) Allergy Shortness Verified 08/26/24 08:40 of breath citalopram (From Celexa) AdvReac erectile Verified 08/26/24 08:40 dysfunction Family History Father CVA (cerebral vascular accident) Heart disease Hypertension Myocardial infarction Grandfather CAD (coronary artery disease) Mother CVA (cerebral vascular accident) Hypertension Heart disease IPF (idiopathic pulmonary fibrosis) Other Cervical cancer Colon cancer Diabetes Ovarian cancer Surgical History History of bilateral carotid endarterectomy History of thoracic aortic aneurysm repair (05/2018) Hx of myringotomy History of appendectomy History of vasectomy History of aortic valve replacement (06/04/18) Social History household members: none Smoking Status: Former smoker alcohol intake: never substance use type: does not use caffeine: No what type of physical activity do you participate in: walking frequency: daily duration: < 15 minutes/day seatbelt use: always do you feel safe at home: Yes ROS Constitutional Constitutional: Denies fatigue, fever(s), poor appetite, weight gain or weight loss Gastrointestinal Gastrointestinal: Denies belching, bloating, change in bowel habits, change in stool character, chewing difficulty, coffee ground emesis, constipation, cramping, diarrhea, dyspepsia, dysphagia, early satiety, excessive flatus, fecalincontinence, heartburn, hematemesis, hematochezia, hemorrhoids, loose stools, melena, nausea, odynophagia, rectal bleeding, tenesmus, vomiting or weight changes Vital Signs Vital Signs Vital Signs: 08/30/24 06:06 08/30/24 06:06 Temperature 97.6 F L Temperature Source Temporal Pulse Rate 44 L Respiratory Rate 18 Respiratory Pattern Normal Blood Pressure 148/63 H Blood Pressure Mean 91 Blood Pressure Source Monitor Blood Pressure Position Semi-Fowlers Blood Pressure Location Left Arm Pulse Ox 98 Oxygen Delivery Method Room Air Weight Weight: 182 lb 15.739 oz Body Mass Index (BMI) 29.4 Physical Exam Const alert, oriented x3, no apparent distress and healthy appearing General Appearance: cooperative GI normal to inspection, nondistended, normoactive bowel sounds, soft to palpation,non-tender and non-distended Percussion: normal to percussion Rectal Exam: deferred Assessment & Plan Assessment/Plan (1) Nausea & vomiting: (2) Dysphagia: PLAN: Assessment and Plan Assessment and Plan (1) Dysphagia: Medications: New pantoprazole 30min before breakfast and dinner 40 mg PO BID 60 tabs 2RF famotidine 40 mg PO QHS 30 tabs 2RF Discontinued omeprazole Discontinued Reason: Order Changed 20 mg PO DAILY Plan BECK FRAGA, is a 48 M who presents to the office today for establishment with I regarding globus sensation behind his cricoid cartilage and epigastric heartburn. Discussed care plan with him. * await for results of MBSS and esophagram * consider esophageal manometry * schedule EGD * pantoprazole 40mg PO twice daily 30min before breakfast and dinner * famotidine 40mg PO QHS * office FU for results 08/30/24 0703 <Electronically signed by Jose Luis Dao DO> Cosigner Signature (if applicable): CC: Dr. Nguyễn Stark MD; Jose Luis Dao DO~ Signed [facility] Work Phone: [phone] 162-421305-19-2025 Consult note [facility] Medical Records Department [address] [place] [address] Anesthesia Postop Eval II 08/30/24 0804 MR#: [id number] Acct: [id number] Name: BECK FRAGA Rep #:[id number] : 1975 48 From: Brando Hilario MD PCP: Dr. Nguyễn Stark MD Status:REG S DC Y Race: C Location: [place] [address]- Anesthesia Postop Eval I Sum Postop Eval Completion status Anesthesia document: Postop Eval 1 completed: Yes Anesthesia Postop Eval I Summary Anesthesia Postop Eval I Summary: Anesthesia Postop Eval I: Assessment Summary Airway patent Yes 08/30/24 07:43 DIRECTOR OF FRONT OFFICE.SOBR Spontaneous unlabored Yes 08/30/24 07:43 DIRECTOR OF FRONT OFFICE.SOBR respirations Mental status Awake 08/30/24 07:43 DIRECTOR OF FRONT OFFICE.SOBR nausea No 08/30/24 07:43 DIRECTOR OF FRONT OFFICE.SOBR Vomiting No 08/30/24 07:43 DIRECTOR OF FRONT OFFICE.SOBR Anesthesia Postop Eval I: Fluid Summary Crystalloid volume administer 300 08/30/24 07:43 DIRECTOR OF FRONT OFFICE.SOBR (ml) Colloids volume administered ( ml) Blood Product volume administered (ml) Total IV fluid infused 300 08/30/24 07:43 DIRECTOR OF FRONT OFFICE.SOBR Anesthesia Postop Eval I: Summary Notes Anesthesia Complication No 08/30/24 07:43 DIRECTOR OF FRONT OFFICE.SOBR Anesthesia Complication Comment: Post-operative progress note Anesthesia: Postop Eval II Evaluation Mental status: Awake Pain Level: 0 nausea: No Vomiting: No 08/30/24 0804 > Date _ Brando Hilario MD Cosigner Signature: Date CC: ~ Signed [facility]05-19-2025 Consult note [facility] Medical Records Department [address] [place] [address] Anesthesia Postop Eval I 08/30/24 0742 MR#: [id number] Acct: [id number] Name: BECK FRAGA Rep #:[id number] : 1975 48 From: Kaiden MCCORD PCP: Dr. Nguyễn Stark MD Status:REG S DC Y Race: C Location: [place] [address] Anesthesia: Postop Eval I Current Vital Signs Temperature: 97.1 F Pulse Rate: 58 Blood Pressure: 120/104 Respiratory Rate: 16 Pulse Ox: 93 Oxygen Delivery Method: Nasal Cannula Oxygen Flow Rate (L/min): 3 Assessment Airway patent: Yes Spontaneous unlabored respirations: Yes Mental status: Awake nausea: No Vomiting: No Anesthesia Complication: No Fluid Hydration Crystalloid volume administer (ml): 300 Total IV fluid infused: 300 Progress Note Anesthesia document: Postop Eval 1 completed: Yes 08/30/24 0743 DIRECTOR OF FRONT OFFICE> Date _ Kaiden UriarteTrenton DIRECTOR OF FRONT OFFICE Cosigner Signature: Date CC: ~ Signed [facility]05-19-2025 Procedure note [facility] Medical Records Department [address] [place] [address] EGD Report MR#: [id number] Acct: [id number] Name: EBCK FRAGA Rep #:[id number] : 1975 48 From: Jose Luis Dao DO PCP: Dr. Nguyễn Stark MD Status:REG S DC Patient Name: Beck Fraga Procedure Date: 08/30/2024 6:22 AM Date of : 1975 Age: 48 Procedure: Upper GI endoscopy Indications: Epigastric abdominal pain, Functional Dyspepsia, Indigestion, Suspected esophageal reflux Providers: Jose Luis Dao DO Referring MD: Nguyễn Stark MD Medicines: Monitored Anesthesia Care Patient Profile: This is a 48 year old male. Refer to note in patient chart for documentation of history and physical. Patient has symptoms of chronic cough, chronic dysphagia, dysphagia with both liquids and solids, chronic nausea and chronic vomiting. Complications: No immediate complications. Procedure: Pre-Anesthesia Assessment: - Prior to the procedure, a History and Physical was performed, and patient medications and allergies were reviewed. The patient is competent. The risks and benefits of the procedure and the sedation options and risks were discussed with the patient. All questions were answered and informed consent was obtained. Patient identification and proposed procedure were verified by the physician in the pre-procedure area. Mental Status Examination: alert and oriented. Airway Examination: normal oropharyngeal airway and neck mobility. Respiratory Examination: clear to auscultation. CV Examination: normal. Prophylactic Antibiotics: The patient does not require prophylactic antibiotics. Prior Anticoagulants: The patient has taken no anticoagulant or antiplatelet agents except for NSAID medication. ASA Grade Assessment: II - A patient with mild systemic disease. After reviewing the risks and benefits, the patient was deemed in satisfactory condition to undergo the procedure. The anesthesia plan was to use monitored anesthesia care (MAC). Immediately prior to administration of medications, the patient was re-assessed for adequacy to receive sedatives. The heart rate, respiratory rate, oxygen saturations, blood pressure, adequacy of pulmonary ventilation, and response to care were monitored throughout the procedure. The physical status of the patient was re-assessed after the procedure. After obtaining informed consent, the endoscope was passed under direct vision. Throughout the procedure, the patient's blood pressure, pulse, and oxygen saturations were monitored continuously. The Endoscope was introduced through the mouth, and advanced to the second part of duodenum. The upper GI endoscopy was accomplished without difficulty. The patient tolerated the procedure well. Scope In: 7:19:17 AM Scope Out: 7:28:18 AM Total Procedure Duration Time 0 hours 9 minutes 1 second Findings: No gross lesions were noted in the entire esophagus. Biopsies were obtained from the proximal and distal esophagus with cold forceps for histology of suspected eosinophilic esophagitis. The Z-line was irregular and was found 36 cm from the incisors. Biopsies were taken with a cold forceps for histology. Verification of patient identification for the specimen was done. Estimated blood loss was minimal. The SEBASTIAN capsule with delivery system was introduced through the mouth and advanced into the esophagus, such that the SEBASTIAN pH capsule was positioned 36 cm from the incisors, which was 6 cm proximal to the GE junction. Suction was applied to the well of the SEBASTIAN pH capsule to suck in the adjacent mucosa of the esophagus using the external vacuum pump set at a minimum vacuum pressure of 550 mmHg for 30 seconds. The SEBASTIAN pH capsule was then deployed by depressing the plunger on top of the handle to advance the locking pin into the mucosa, thereby attaching the capsule to the esophagus. The plunger was then rotated a quarter turn clockwise to release the capsule from the delivery system. The delivery system was then withdrawn. Endoscopy was utilized for probe placement and diagnostic evaluation. No gross lesions were noted in the entire examined stomach. The cardia and gastric fundus were normal on retroflexion. No gross lesions were noted in the entire examined duodenum. Impression: - No gross lesions in the entire esophagus. - Z-line irregular, 36 cm from the incisors. Biopsied. - No gross lesions in the entire stomach. - No gross lesions in the entire examined duodenum. - Biopsies were taken with a cold forceps for evaluation of eosinophilic esophagitis. - The SEBASTIAN pH capsule was positioned 36 cm from the incisors, which was 6 cm proximal to the GE junction. Recommendation: - Discharge patient to home. - Resume previous diet. - Continue present medications. - Await pathology results. Procedure Code(s): --- Professional --- 19683, Esophagogastroduodenoscopy, flexible, transoral; with biopsy, single or multiple CPT copyright 2021 [employer]. All rights reserved. The codes documented in this report are preliminary and upon global supply chain director review may be revised to meet current compliance requirements. Jose Luis Dao DO 08/30/2024 7:33:53 AM This report has been signed electronically. Number of Addenda: 0 Note Initiated On: 08/30/2024 6:22 AM 08/30/24 0734 Date _ Jose Luis Dao DO Cosigner Signature: Date (if indicated) CC: Dr. Nguyễn Stark MD; Jose Luis Dao DO ~ Date Dictated: 08/30/24621 Date Transcribed: Conduit Reamer Operator: RF Signed [facility]05-19-2025 Procedure note [facility] Medical Records Department [address] [place] [address] Operative Report - CC Letter MR#: [id number] Acct: [id number] Name: BECK FRAGA Rep #:[id number] : 1975 48 From: Jose Luis Dao DO PCP: Dr. Nguyễn Stark MD Status:REG S DC 08/30/2024 Nguyễn Stark MD [address] [place] [address] Re : Upper GI endoscopy procedure for Bekc Fraga Dear Dr. Stark This procedure was performed on Friday, August 30, 2024. My impressions and recommendations are as follows: Impressions : - No gross lesions in the entire esophagus. - Z-line irregular, 36 cm from the incisors. Biopsied. - No gross lesions in the entire stomach. - No gross lesions in the entire examined duodenum. - Biopsies were taken with a cold forceps for evaluation of eosinophilic esophagitis. - The SEBASTIAN pH capsule was positioned 36 cm from the incisors, which was 6 cm proximal to the GE junction. Recommendations : - Discharge patient to home. - Resume previous diet. - Continue present medications. - Await pathology results. My findings are described in the full procedure note, which is enclosed. If I can be of further assistance, please feel free to contact me at . Sincerely, Jose Luis Dao DO 08/30/2024 7:33:53 AM This report has been signed electronically. 08/30/2434 Date _ Jose Luis Dao DO Cosigner Signature: Date (if indicated) CC: Dr. Nguyễn Stark MD; Jose Luis Dao DO ~ Date Dictated: 08/30/24621 Date Transcribed: Conduit Reamer Operator: RF Signed [facility]05-19-2025 Consult note [facility] Medical Records Department [address] [place] [address] Pre-Anesthesia Evaluation 08/30/24710 MR#: [id number] Acct: [id number] Name: BECK FRAGA Rep #:[id number] : 1975 48 From: Brando Hilario MD PCP: Dr. Nguyễn Stark MD Status:REG S DC Y Race: C Location: [facility] AC10-1 ASA Classification* ASA Classification ASA Classification: 2 Assessment & Plan Anesthesia* Anesthesia Assessment Anesthesia Assessment: Discussed sedation and/or anesthesia options, risks, benefits, and alternatives with patient/parents/legal guardian/POA. Questions invited. The patient/parents/legal guardian/POA seems to understand and agrees to proceedwith anesthesia plan. Reviewed the physical assessment, medical history, allergy history and patient home medications list prior to surgery/procedure/anesthetic and documented any changes. Performed airway and anesthesia risk assessments. Anesthesia Type Anesthesia Type: MAC Anesthesia Focused Assessment* Temperature: 97.6 F Pulse Rate: 44 Blood Pressure: 148/63 Respiratory Rate: 18 Pulse Ox: 98 Airway Assessment Mouth opens: >3 cm Mallampati Score: II Focused Labs Anesthesia Preop lab: CBC WBC 7.5 K/mm3 (4.4-11.0) 06/07/24 13:00 06/07/24 RBC 5.45 M/mm3 (4.6-6.2) 06/07/24 13:06/07/24 Hgb 15.5 g/dL (13.0-16.5) 06/07/24 13:00 06/07/24 Hct 46.8 % (40-54) 06/07/24 13:00 06/07/24 Plt Count 209 K/mm3 (150-450) 06/07/24 13:00 06/07/24 CHEMISTRY Potassium 4.1 mmol/L (3.5-5.1) 06/07/24 13:00 06/07/24 Sodium 140 mmol/L (136-145) 06/07/24 13:06/07/24 BUN 14 mg/dL (7-18) 06/07/24 13:06/07/24 Creatinine 1.10 mg/dL (0.70-1.30) 06/07/24 13:00 06/07/24 Glucose 76 mg/dL (74-106) 06/07/24 13:00 06/07/24 POC Glucose 99 mg/dL (70-110) 06/26/20 20:27 06/26/20 TSH 3.710 uIU/mL (0.358-3.740) 06/07/24 13:05/16 COAG PT 13.9 SECONDS (11.7-14.9) 03/31/14 23:10 Pre-Assessment Diagnosis/Proposed Procedure Planned Operative Procedure(s): EGD WITH PH PROBE Anesthesia History Anesthesia History - marketing operations specialist: Anesthesia History - marketing operations specialist Hx Hospitalization No 08/26/24 08:47 Any Problems With Anesthesia No 08/26/24 08:47 Cholinesterase deficiency No 08/26/24 08:47 You/Your Family Experience No 08/26/24 08:47 fever (hyperthermia) with Relationship Recent Exposure to Contagious No 08/30/24 06:06 Disease Does patient have nerve No 08/26/24 08:47 stimulator Patient instructed to have device shut off --Does patient have Pacemaker No 08/30/24 06:06 or ICD? When Was Last Pacemaker Check QUESTION #4 FULL TEXT: You/Your Family Experience fever (hyperthermia) with Anesthesia Last Oral Intake Last Oral intake: Last Oral Intake NPO since 00:00 08/30/24 06:06 Meds taken in AM with sips of water? 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 - marketing operations specialist: PONV - marketing operations specialist Female No 08/26/24 08:47 HX of Motion Sickness No 08/26/24 08:47 HX of N/V After Surgery No 08/26/24 08:47 Non-Smoker Yes 08/26/24 08:47 Duration of Surgery greater No 08/26/24 08:47 than 60 minutes Number of Risk Factors 1 08/26/24 08:47 PONV Score Low Risk 08/26/24 08:47 Height & Weight Height & Weight: Anesthesia: Height & Weight Height 5 ft 6.14 in 08/30/24 06:06 Weight: 83 kg 08/30/24 06:06 Body Mass Index (BMI) 29.4 08/30/24 06:06 Respiratory Assessment Respiratory Assessment - marketing operations specialist: Respiratory Tract Infection Hx - marketing operations specialist Hx Respiratory Tract Infection No 08/26/24 08:47 STOP Sleep Apnea STOP Sleep Apnea - marketing operations specialist: STOP Sleep Apnea - marketing operations specialist Hx Hypertension Yes 08/26/24 08:47 Hx Sleep Apnea No 08/26/24 08:47 CPAP BIPAP Do you snore loudly (louder No 08/26/24 08:47 than talking or can be heard Do you often feel tired/ No 08/26/24 08:47 fatigued/ sleepy during daytime? Has anyone observed you stop No 08/26/24 08:47 breathing during sleep? STOP Results Negative 08/26/24 08:47 QUESTION #5 FULL TEXT : Do you snore loudly (louder than talking or can be heard through closeddoors)? 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 Specify any problems Hx of Preganancy in last 3 N/A 08/26/24 08:47 Months Nurse Filling Out Transfusion [facility]LE[facility] 08/26/24 08:47 & Questions: Date: 08/26/24 08/26/24 08:47 Time: 08:59 08/26/24 08:47 Patient unable to answer at this time (ie. confused, unrespo /Reproduction History /Reproductive History - marketing operations specialist: /Reproductive Hx- marketing operations specialist Hx Now Gestational Age (in weeks): EDC: Hx Hx Para Hx Section SAB Active Medications Active Medications: Current Medications Generic Name Dose Route Start Last Admin Trade Name Freq PRN Reason Stop Dose Admin Lactated Ringer's 1,000 mls @ 15 mls/hr 08/30/24 06:15 08/30/24 06:16 IV 15 mls/hr .Q48H [place] Administration PFSH Medical History Wears glasses Depression Marijuana use Fatty liver Cirrhosis High cholesterol Migraine headache Diverticulosis Heartburn Gastric reflux Former smoker History of echocardiogram Cardiology follow-up encounter Abdominal aortic aneurysm dissection Dysautonomia-like disorder Seizure GERD (gastroesophageal reflux disease) Pneumonia Hearing problem Back problem Constipation Diarrhea Nausea & vomiting Abdominal pain Heart murmur Afib History of carotid artery dissection CVA (cerebral vascular accident) Thoracoabdominal aortic dissection Hyperlipidemia Bicuspid aortic valve Home Medications ?Medication ?Instructions ?Recorded ?Last Taken ?Type aspirin 81 mg chewable tablet 81 mg PO DAILY 12/30/15 08/27/24 History clopidogrel 75 mg tablet 75 mg PO DAILY 10/26/1608/12 History metoprolol succinate 25 mg 12.5 mg PO BID 02/05/20 History tablet,extended release 24 hr atorvastatin 40 mg tablet 40 mg PO QDAY 07/30/2408/29 History famotidine 40 mg tablet 40 mg PO QHS #30 tabs 08/27/24 Rx pantoprazole 40 mg tablet,delayed 40 mg PO BID #60 tab s 08/03/24 08/27/24 Rx release Allergy/AdvReac Type Severity Reaction Status Date / Time oxycodone (From Percocet) Allergy Shortness Verified 08/26/24 08:40 of breath citalopram (From Celexa) AdvReac erectile Verified 08/26/24 08:40 dysfunction Family History Father CVA (cerebral vascular accident) Heart disease Hypertension Myocardial infarction Grandfather CAD (coronary artery disease) Mother CVA (cerebral vascular accident) Hypertension Heart disease IPF (idiopathic pulmonary fibrosis) Other Cervical cancer Colon cancer Diabetes Ovarian cancer Surgical History History of bilateral carotid endarterectomy History of thoracic aortic aneurysm repair (05/2018) Hx of myringotomy History of appendectomy History of vasectomy History of aortic valve replacement (06/04/18) Social History household members: none Smoking Status: Former smoker alcohol intake: never substance use type: does not use caffeine: No what type of physical activity do you participate in: walking frequency: daily duration: < 15 minutes/day seatbelt use: always do you feel safe at home: Yes Review of Systems (Anesthesia) ROS Narrative System reviewed and no additional complaints, except as documented. 08/30/24 0711 > Date _ Brando Damon Signature: Date CC: ~ Signed [facility]05-19-2025 History and physical note [facility] Medical Records Department [address] [place] [address] History & Physical Exam 08/30/24701 MR#: [id number] Acct: [id number] Name: BECK FRAGA Rep #:[id number] : 1975 48 From: Jose Luis Dao DO PCP: Dr. Nguyễn Stark MD Status:REG S OR Location: [place] [address] HPI - General General Date of Admission: 08/30/24 Date of Service: 08/30/24 Chief Complaint: dysphagia HPI Narrative BECK FRAGA, is a 48 M who presents regarding globus sensation behind his cricoid cartilage and epigastric heartburn. He states eating food, especially drinking milk, helps the epigastric pain briefly and then 10 to 15 minutes laterit's very painful again. He reports that manual external manipulation of his upper throat will some times alleviate the globus sensation, but not always. He has a significant vascular history of multiple aortic dissections and a stroke being managed by [facility]. His PCP has stopped his omeprazole, given him 30 days trial of vonoprazan of which he's been on for a week now but has not noticed a change in symptoms, improvement or worsening. He has been given simethicone which he states has made the most difference in his abdominal pain. has already ordered and MBSS, esophagram, and a consult to ENT. He notes that BBQ and tomatoes worsen epigastric pain. He reports a familial history of diverticula and colon cancer. [facility] Medical History Wears glasses Depression Marijuana use Fatty liver Cirrhosis High cholesterol Migraine headache Diverticulosis Heartburn Gastric reflux Former smoker History of echocardiogram Cardiology follow-up encounter Abdominal aortic aneurysm dissection Dysautonomia-like disorder Seizure GERD (gastroesophageal reflux disease) Pneumonia Hearing problem Back problem Constipation Diarrhea Nausea & vomiting Abdominal pain Heart murmur Afib History of carotid artery dissection CVA (cerebral vascular accident) Thoracoabdominal aortic dissection Hyperlipidemia Bicuspid aortic valve Home Medications ?Medication ?Instructions ?Recorded ?Last Taken ?Type aspirin 81 mg chewable tablet 81 mg PO DAILY 12/30/15 08/27/24 History clopidogrel 75 mg tablet 75 mg PO DAILY 10/26/1608/12 History metoprolol succinate 25 mg 12.5 mg PO BID 02/05/20 History tablet,extended release 24 hr atorvastatin 40 mg tablet 40 mg PO QDAY 07/30/2408/29 History famotidine 40 mg tablet 40 mg PO QHS #30 tabs 08/27/24 Rx pantoprazole 40 mg tablet,delayed 40 mg PO BID #60 tab s 08/03/24 08/27/24 Rx release Allergy/AdvReac Type Severity Reaction Status Date / Time oxycodone (From Percocet) Allergy Shortness Verified 08/26/24 08:40 of breath citalopram (From Celexa) AdvReac erectile Verified 08/26/24 08:40 dysfunction Family History Father CVA (cerebral vascular accident) Heart disease Hypertension Myocardial infarction Grandfather CAD (coronary artery disease) Mother CVA (cerebral vascular accident) Hypertension Heart disease IPF (idiopathic pulmonary fibrosis) Other Cervical cancer Colon cancer Diabetes Ovarian cancer Surgical History History of bilateral carotid endarterectomy History of thoracic aortic aneurysm repair (05/2018) Hx of myringotomy History of appendectomy History of vasectomy History of aortic valve replacement (06/04/18) Social History household members: none Smoking Status: Former smoker alcohol intake: never substance use type: does not use caffeine: No what type of physical activity do you participate in: walking frequency: daily duration: < 15 minutes/day seatbelt use: always do you feel safe at home: Yes ROS Constitutional Constitutional: Denies fatigue, fever(s), poor appetite, weight gain or weight loss Gastrointestinal Gastrointestinal: Denies belching, bloating, change in bowel habits, change in stool character, chewing difficulty, coffee ground emesis, constipation, cramping, diarrhea, dyspepsia, dysphagia, earlysatiety, excessive flatus, fecalincontinence, heartburn, hematemesis, hematochezia, hemorrhoids, loose stools, melena, nausea, odynophagia, rectal bleeding, tenesmus, vomiting or weight changes Vital Signs Vital Signs Vital Signs: 08/30/24 06:06 08/30/24 06:06 Temperature 97.6 F L Temperature Source Temporal Pulse Rate 44 L Respiratory Rate 18 Respiratory Pattern Normal Blood Pressure 148/63 H Blood Pressure Mean 91 Blood Pressure Source Monitor Blood Pressure Position Semi-Fowlers Blood Pressure Location Left Arm Pulse Ox 98 Oxygen Delivery Method Room Air Weight Weight: 182 lb 15.739 oz Body Mass Index (BMI) 29.4 Physical Exam Const alert, oriented x3, no apparent distress and healthy appearing General Appearance: cooperative GI normal to inspection, nondistended, normoactive bowel sounds, soft to palpation,non-tender and non-distended Percussion: normal to percussion Rectal Exam: deferred Assessment & Plan Assessment/Plan (1) Nausea & vomiting: (2) Dysphagia: PLAN: Assessment and Plan Assessment and Plan (1) Dysphagia: Medications: New pantoprazole 30min before breakfast and dinner 40 mg PO BID 60 tabs 2RF famotidine 40 mg PO QHS 30 tabs 2RF Discontinued omeprazole Discontinued Reason: Order Changed 20 mg PO DAILY Plan BECK FRAGA, is a 48 M who presents to the office today for establishment with I regarding globussensation behind his cricoid cartilage and epigastric heartburn. Discussed care plan with him. * await for results of MBSS and esophagram * consider esophageal manometry * schedule EGD * pantoprazole 40mg PO twice daily 30min before breakfast and dinner * famotidine 40mg PO QHS * office FU for results 08/30/24 0703 Cosigner Signature (if applicable): CC: Dr. Nguyễn Stark MD; Jose Luis Dao DO~ Signed [facility]05-19-2025 [facility] Medical Records Department [address] [place] [address] History Physical Exam 08/30/24 0702 MR#: [id number] Acct: [id number] Name: BECK FRAGA Rep #: [id number] : 1975 48 From: Jose Luis Dao DO PCP: Dr. Nguyễn Stark MD Status:REG [facility] Location: [place] [address] HPI - General General Date of Admission: 08/30/24 Date of Service: 08/30/24 Chief Complaint: dysphagia HPI Narrative BECK FRAGA, is a 48 M who presents regarding globus sensation behind his cricoid cartilage and epigastric heartburn. He states eating food, especially drinking milk, helps the epigastric pain briefly and then 10 to 15 minutes later it's very painful again. He reports that manual external manipulation of his upper throat will some times alleviate the globus sensation, but not always. He has a significant vascular history of multiple aortic dissections and a stroke being managed by [facility]. His PCP has stopped his omeprazole, given him 30 days trial of vonoprazan of which he's been on for a week now but has not noticed a change in symptoms, improvement or worsening. He has been given simethicone which he states has made the most difference in his abdominal pain. has already ordered and MBSS, esophagram, and a consult to ENT. He notes that BBQ and tomatoes worsen epigastric pain. He reports a familial history of diverticula and colon cancer. [facility] Medical History Wears glasses Depression Marijuana use Fatty liver Cirrhosis High cholesterol Migraine headache Diverticulosis Heartburn Gastric reflux Former smoker History of echocardiogram Cardiology follow-up encounter Abdominal aortic aneurysm dissection Dysautonomia-like disorder Seizure GERD (gastroesophageal reflux disease) Pneumonia Hearing problem Back problem Constipation Diarrhea Nausea vomiting Abdominal pain Heart murmur Afib History of carotid artery dissection CVA (cerebral vascular accident) Thoracoabdominal aortic dissection Hyperlipidemia Bicuspid aortic valve Home Medications ???Medication ???Instructions ???Recorded ???Last Taken ???Type aspirin 81 mg chewable tablet 81 mg PO DAILY 12/30/15 08/27/24 H istory clopidogrel 75 mg tablet 75 mg PO DAILY 10/26/16 08/27/24 H istory metoprolol succinate 25 mg 12.5 mg PO BID 02/05/20 08/30/24 H istory tablet,extended release 24 hr atorvastatin 40 mg tablet 40 mg PO QDAY 07/30/24 08/29/24 Hi story famotidine 40 mg tablet 40 mg PO QHS #30 tabs 08/03/24 Rx pantoprazole 40 mg tablet,delayed 40 mg PO BID #60 tabs 08/03/24 Rx release Allergy/AdvReac Type Severity Reaction Status Date / Time oxycodone (From Percocet) Allergy Shortness Verified 08/26/24 08:40 of breath citalopram (From Celexa) AdvReac erectile Verified 08/26/24 08:40 dysfunction Family History Father CVA (cerebral vascular accident) Heart disease Hypertension Myocardial infarction Grandfather CAD (coronary artery disease) Mother CVA (cerebral vascular accident) Hypertension Heart disease IPF (idiopathic pulmonary fibrosis) Other Cervical cancer Colon cancer Diabetes Ovarian cancer Surgical History History of bilateral carotid endarterectomy History of thoracic aortic aneurysm repair (05/2018) Hx of myringotomy History of appendectomy History of vasectomy History of aortic valve replacement (06/04/18) Social History household members: none Smoking Status: Former smoker alcohol intake: never substance use type: does not use caffeine: No what type of physical activity do you participate in: walking frequency: daily duration: < 15 minutes/day seatbelt use: always do you feel safe at home: Yes ROS Constitutional Constitutional: Denies fatigue, fever(s), poor appetite, weight gain or weight loss Gastrointestinal Gastrointestinal: Denies belching, bloating, change in bowel habits, change in stool character, chewing difficulty, coffee ground emesis, constipation, cramping, diarrhea, dyspepsia, dysphagia, early satiety, excessive flatus, fecal incontinence, heartburn, hematemesis, hematochezia, hemorrhoids, loose stools, melena, nausea, odynophagia, rectal bleeding, tenesmus, vomiting or weight changes Vital Signs Vital Signs Vital Signs: 08/30/24 06:06 08/30/24 06:06 Temperature 97.6 F L Temperature Source Temporal Pulse Rate 44 L Respiratory Rate 18 Respiratory Pattern Normal Blood Pressure 148/63 H Blood Pressure Mean 91 Blood Pressure Source Monitor Blood Pressure Position Semi-Fowlers Blood Pressure Loc (more content not included)...[facility] 08-18-2024 History of Present illness Narrative* Laminemark Keely, BRIAN.AIR BAG STRIPPER - 08/18/2024 1:30 PM EDT Images from the original note were not included. FOLLOW-UP Aortic Aneurysm, Aortic Dissection, and Aortic Repair Patient Type: Established REFERRED BY: Harjit Thorpe M.D. PCP: Nguyễn Stark MD [id number] [facility] [place] [address] [address] Other Physician: Harjit Thorpe [address] [facility] [address] Patient Mr. Fraga returns, now 12 months following the last assessment of his thoracoabdominal AorticDissection and Aortic Repair. The patient is asymptomatic. Pertinent Surgical History: 07/01/2022 -- Dr Thorpe TEVAR from zone 3 to 5 (32mm x 209mm RELAY PRO) + Cook Zenith NIRAV from zone 5 to 9 (36mm x 180mm) +LSCA stent (VBX 11x39) + LCCA stents (ABSOLUTE 4x40 + VBX 8x59) + Balloon fracture fenestration + False lumen embolization and endoleak repair with 2 aortic Amplatzer plugs at zone 1 ( 12 and 20 mm). 06/04/2018 -- Dr Thorpe Redo median sternotomy, right axillary artery cannulation with a 10 mm Dacron graft, aortic root replacement with reimplantation of the coronary arteries and aortic valve with a 27-mm Inspiris bioprosthetic valve and 30 mm Valsalva graft, ascending and total arch replacement with a 28 mm Dacron graft and direct placement of a 28 mm x 10 cm Relay thoracic stent graft with on-table fenestration andstent grafting of the left subclavian artery with a 13 mm x 2.5 cm Viabahn covered stent, stent graft in the left common carotid artery with a 10 mm x 2.5 cm covered stent, dissection of the left common carotid artery and dissection of the left subclavian artery, repair of dissected left subclavianand left common carotid arteries, hypothermic circulatory arrest with selective antegrade brain perfusion. 2013 -- OSH Aortic valve replacement (bioprosthetic) & ascending aortic dissection repair (supracoronary graft). Done at [facility] in [place]. Genetic Consult, 09/20/22 - Beck Lopez Flakito declined to proceed with a new panel now; would like to reconsider again in the future. The CT scan was reviewed and reveals a maximum aortic diameter of 36 mm in the area just distal to TEVAR with false lumen perfusion. Dissection terminates in right common iliac. Overall, stable findings when compares to CTA in August 2023. The Echocardiogram from 09/20/22 reveals normal ventricular function and well functioning valves, including AVR (30/12). Last ECHO Result Conclusion ECHO Collected: 09/20/2022 10:36 AM (Final result) Impression: CONCLUSIONS: - Exam indication: AVR - The left ventricle is normal in size. Left ventricular systolic function is normal. EF = 66 5% (2D 4-ch.) - The right ventricle is normal in size. Right ventricular systolic function is normal. - Inspiris prosthetic aortic valve (size #27). There is trace (trace - 1+) aortic valve regurgitation. The peak gradient is 18 mmHg, the mean gradient is 9 mmHg and the dimensionless valve index is 0.43. Prior peak/mean gradients 19/9mmHg. - Mild MR and HI. - Exam was compared with the prior CC echocardiographic exam performed on 05/13/2022, similar findings. * * * Final * * * Last CT Result Conclusion CTA CHEST (NONGATED) WO/W IVCON Exam End: 08/18/2024 12:56 PM (Final result) Impression: IMPRESSION: Stable exam since 08/20/2023. 1. Type A aortic dissection status post extensive repair with aortic valve replacement, ascending aortic graft, frozen elephant trunk and endovascular stenting of the thoracoabdominal aorta to the aortic bifurcation. No evidence of endoleak. -Patent stents in the left carotid and left without arteries. Conduit Reamer Operator: PSCB Transcribe Date/Time: Aug 18 2024 1:28P Dictated by : NAYAN DUGAN MD This examination was interpreted and the report reviewed and electronically signed by: NAYAN DUGAN MD on Aug 18 2024 2:02PM EST Impression: The patient is doing well, after the last visit. (I71.03) Dissection of thoracoabdominal aorta (HCC) (primary encounter diagnosis) Comment: (Z95.2) S/P AVR (aortic valve replacement) (Z95.828) S/P ascending aortic replacement (Z98.890) H/O aortic root repair (Z95.828) H/O aortic arch replacement (Z95.828) S/P insertion of endovascular thoracic aortic stent graft Plan: Follow Up CTA and echo Plan: He will return to see me in 12 months, coordinate with cardiology if not done in the interim. The following studies will be necessary: - CT C/A/P with and without contrast, post stent - Echocardiogram Keely Eubanks APRN.AIR BAG STRIPPER [facility] NoteHNO ID: [id number] Author: KEELY EUBANKS APRN.CNS Service: ? Author Type: Clinical Nurse Specialist Type: Progress Notes Filed: 08/19/2024 16:24 Note Text: FOLLOW-UP Aortic Aneurysm, Aortic Dissection, and Aortic Repair Patient Type: Established REFERRED BY: Harjit Thorpe M.D. PCP: Nguyễn Stark MD [address] [facility] [address] [address] Other Physician: Harjit Thorpe [address] [facility] [address] Patient Mr. Fraga returns, now 12 months following the last assessment of his thoracoabdominal Aortic Dissection and Aortic Repair. The patient is asymptomatic. Pertinent Surgical History: 07/01/2022 -- Dr Thorpe TEVAR from zone 3 to 5 (32mm x 209mm RELAY PRO) + Cook Zenith NIRAV from zone 5 to 9 (36mm x 180mm) + LSCA stent (VBX 11x39) + LCCA stents (ABSOLUTE 4x40 + VBX 8x59) + Balloon fracture fenestration + False lumen embolization and endoleak repair with 2 aortic Amplatzer plugs at zone 1 ( 12 and 20 mm). 06/04/2018 -- Dr Thorpe Redo median sternotomy, right axillary artery cannulation with a 10 mm Dacron graft, aortic root replacement with reimplantation of the coronary arteries and aortic valve with a 27-mm Inspiris bioprosthetic valve and 30 mm Valsalva graft, ascending and total arch replacement with a 28 mm Dacron graft and direct placement of a 28 mm x 10 cm Relay thoracic stent graft with on-table fenestration and stent grafting of the left subclavian artery with a 13 mm x 2.5 cm Viabahn covered stent, stent graft in the left common carotid artery with a 10 mm x 2.5 cm covered stent, dissection of the left common carotid artery and dissection of the left subclavian artery, repair of dissected left subclavian and left common carotid arteries, hypothermic circulatory arrest with selectiveantegrade brain perfusion. 2013 -- OSH Aortic valve replacement (bioprosthetic) AND ascending aortic dissection repair (supracoronary graft). Done at [facility] in [place]. Genetic Consult, 09/20/22 - Beck Fraga declined to proceed with a new panel now; would like to reconsider again in the future. The CT scan was reviewed and reveals a maximum aortic diameter of 36 mm in the area just distal to TEVAR with false lumen perfusion. Dissection terminates in right common iliac. Overall, stable findings when compares to CTA in August 2023. The Echocardiogram from 09/20/22 reveals normal ventricular function and well functioning valves, including AVR (30/12). Last ECHO Result Conclusion ECHO Collected: 09/20/2022 10:36 AM (Final result) Impression: CONCLUSIONS: - Exam indication: AVR - The left ventricle is normal in size. Left ventricular systolic function is normal. EF = 66 ? 5% (2D 4-ch.) - The right ventricle is normal in size. Right ventricular systolic function is normal. - Inspiris prosthetic aortic valve (size #27). There is trace (trace - 1+) aortic valve regurgitation. The peak gradient is 18 mmHg, the mean gradient is 9 mmHg and the dimensionless valve index is 0.43. Prior peak/mean gradients 19/9mmHg. - Mild MR and HI. - Exam was compared with the prior echocardiographic exam performed on 05/13/2022, similar findings. * * * Final * * * Last CT Result Conclusion CTA CHEST (NONGATED) WO/W IVCON Exam End: 08/18/2024 12:56 PM (Final result) Impression: IMPRESSION: Stable exam since 08/20/2023. 1. Type A aortic dissection status post extensive repair with aortic valve replacement, ascending aortic graft, frozen elephant trunk and endovascular stenting of the thoracoabdominal aorta to the aortic bifurcation. No evidence of endoleak. -Patent stents in the left carotid and left without arteries. Conduit Reamer Operator: PSCB Transcribe Date/Time: Aug 18 2024 1:28P Dictated by : NAYAN DUGAN MD This examination was interpreted and the report reviewed and electronically signed by: NAYAN DUGAN MD on Aug 18 2024 2:02PM EST Impression: The patient is doing well, after the last visit. (I71.03) Dissection of thoracoabdominal aorta (HCC) (primary encounter diagnosis) Comment: (Z95.2) S/P AVR (aortic valve replacement) (Z95.828) S/P ascending aortic replacement (Z98.890) H/O aortic root repair (Z95.828) H/O aortic arch replacement (Z95.828) S/P insertion of endovascular thoracic aortic stent graft Plan: Follow Up CTA and echo Plan: He will return to see me in 12 months, coordinate with cardiology if not done in the interim. The following studies will be necessary: - CT C/A/P with and without contrast, post stent - Echocardiogram Keely Eubanks APRN.[facility]05-07-2025 History of Present illness Narrative* Diane Wright RN - 08/18/2024 12:30 PM EDT Radiology Service Progress Note DATE OF SERVICE: August 18, 2024 TIME: 12:28 PM PATIENT WEIGHT: 185LBS PATIENT IDENTITY VERIFICATION COMPLETED USING TWO (2) STANDARD IDENTIFIERS: Name and Date of confirmed by patient verbally and Name and Date of confirmed by identification band. FALL SCREENING: Has the patient had 2 falls in the last year or 1 fall with injury or currently using an Ambulatory Assistive Device (Walker, Cane, Wheelchair, Crutches, etc.)? No PATIENT GENDER DATA: Assigned male at ALLERGIES: Reviewed and unchanged CONTRAST ALLERGY: No EXAM: CT -CONTRAST INDUCED NEPHROPATHY RISK FACTORS: Not applicable CREATININE: Creatinine Date Value Ref Range Status 04/20/2023 1.15 0.50 - 1.40 mg/dL Final Comment: Patients receiving either N-Acetylcysteine (NAC) or Metamizole prior to venipuncture, may have falsely depressed results. 09/20/2022 1.13 0.73 - 1.22 mg/dL Final 07/05/2022 1.01 0.73 - 1.22 mg/dL Final Estimated Glomerular Filtration Rate Date Value Ref Range Status 04/20/2023 79 >=60 mL/min/1.73m Final Comment: Estimated Glomerular Filtration Rate (eGFR) is calculated using the 2020 CKD-EPI creatinine equation. This equation utilizes serum creatinine, sex, and age as parameters. The creatinine assay has traceable calibration to isotope dilution- mass spectrometry. Refer to KDIGO guidelines for clinical interpretation. In patients with unstable renal function, e.g. those with acute kidney injury, the eGFRmay not accurately reflect actual GFR. eGFR- Date Value Ref Range Status 07/13/2018 >60 Final P.O.C.T. RESULTS: N/A August 18, 2024 TREATMENT: No Hydration needed. IV SITE: Ambulatory: A peripheral IV was started in the Right antecubital site with a Angio cath: 20 gauge. and A Saline lock was inserted per protocol IV SITE APPEARANCE: Clean,Dry and Intact SIGNATURE: Diane Wright RN PATIENT NAME: Beck Fraga DATE: August 18, 2024 TIME: 12:28 PM * Bailey Sigala RT(R) - 08/18/2024 12:30 PM EDT Radiology Service Progress Note PATIENT NAME: Beck Fraga DATE OF SERVICE: August 18, 2024 TIME: 12:53 PM PATIENT IDENTITY VERIFICATION COMPLETED USING TWO (2) IDENTIFIERS: Name and Date of confirmedby patient verbally. FALL SCREENING: Has the patient had 2 falls in the last year or 1 fall with injury or currently using an Ambulatory Assistive Device (Walker, Cane, Wheelchair, Crutches, etc.)? No PATIENT GENDER DATA: Assigned male at PATIENT RELEVANT IMPLANT DATA REVIEWED: Yes PATIENT PRESENTS WITH AN IMPLANTABLE OR ATTACHED AUTO MOTOR MECHANIC: No RADIOLOGY DEPARTMENT: CT; Exam(s) Completed: Cardiac PERIPHERAL IV DATA: Site assessment: Clean,Dry and Intact, Site disposition Discontinued SIGNED BY: RT Charli(David) August 18, 2024 12:53 PM documented in this [facility]25 NoteHNO ID: [id number] Author: BAILEY SIGALA RT(David) Service: Radiology Author Type: Technologist Type: Progress Notes Filed: 08/18/2024 12:56 Note Text: Radiology Service Progress Note PATIENT NAME: Beck Fraga DATE OF SERVICE: August 18, 2024 TIME: 12:53 PM PATIENT IDENTITY VERIFICATION COMPLETED USING TWO (2) IDENTIFIERS: Name and Date of confirmed by patient verbally. FALL SCREENING: Has the patient had 2 falls in the last year or 1 fall with injury or currently using an Ambulatory Assistive Device (Walker, Cane, Wheelchair, Crutches, etc.)? No PATIENT GENDER DATA: Assigned male at PATIENT RELEVANT IMPLANT DATA REVIEWED: Yes PATIENT PRESENTS WITH AN IMPLANTABLE OR ATTACHED AUTO MOTOR MECHANIC: No RADIOLOGY DEPARTMENT: CT; Exam(s) Completed: Cardiac PERIPHERAL IV DATA: Site assessment: Clean,Dry and Intact, Site disposition Discontinued SIGNED BY: RT Charli(David) August 18, 2024 12:53 [facility]05-07-2025 NoteHNO ID: [id number] Author: DIANE WRIGHT RN Service: Radiology Author Type: Registered Nurse Type: Progress Notes Filed: 08/18/2024 12:32 Note Text: Radiology Service Progress Note DATE OF SERVICE: August 18, 2024 TIME: 12:28 PM PATIENT WEIGHT: 185LBS PATIENT IDENTITY VERIFICATION COMPLETED USING TWO (2) STANDARD IDENTIFIERS: Name and Date of confirmed by patient verbally and Name and Date of confirmed by identification band. FALL SCREENING: Has the patient had 2 falls in the last year or 1 fall with injury or currently using an Ambulatory Assistive Device (Walker, Cane, Wheelchair, Crutches, etc.)? No PATIENT GENDER DATA: Assigned male at ALLERGIES: Reviewed and unchanged CONTRAST ALLERGY: No EXAM: CT -CONTRAST INDUCED NEPHROPATHY RISK FACTORS: Not applicable CREATININE: Creatinine Date Value Ref Range Status 04/20/2023 1.15 0.50 - 1.40 mg/dL Final Comment: Patients receiving either N-Acetylcysteine (NAC) or Metamizole prior to venipuncture, may have falsely depressed results. 09/20/2022 1.13 0.73 - 1.22 mg/dL Final 07/05/2022 1.01 0.73 - 1.22 mg/dL Final Estimated Glomerular Filtration Rate Date Value Ref Range Status 04/20/2023 79 >=60 mL/min/1.73m? Final Comment: Estimated Glomerular Filtration Rate (eGFR) is calculated using the 2020 CKD-EPI creatinine equation. This equation utilizes serum creatinine, sex, and age as parameters. The creatinine assay has traceable calibration to isotope dilution-mass spectrometry. Refer to KDIGO guidelines for clinical interpretation. In patients with unstable renal function, e.g. those with acute kidney injury, the eGFR may not accurately reflect actual GFR. eGFR- Date Value Ref Range Status 07/13/2018 >60 Final P.O.C.T. RESULTS: N/A August 18, 2024 TREATMENT: No Hydration needed. IV SITE: Ambulatory: A peripheral IV was started in the Right antecubital site with a Angio cath: 20 gauge. and A Saline lock was inserted per protocol IV SITE APPEARANCE: Clean,Dry and Intact SIGNATURE: Diane Wright RN PATIENT NAME: Beck Fraga DATE: August 18, 2024 TIME: 12:28 [facility]04-22-2025 Evaluation note* Diagnosis Onset Date Resolution Status Admit Date Dysphagia noneactive August 03 3:08pm Dysphagia acute August 30, 2024 5:33am Nausea & vomiting acute August 5:33am [facility] Work Phone: 1(884) 935-457906-13-2024 Telephone encounter Note* Telephone Encounter - Miguel Dela Cruz RN - 09/25/2023 9:[address] Thorpe met with Beck Fraga 08/20/2023 and is recommending follow up visit in a year with Keely Eubanks APRN, ACNS and CTA (chest abdomen and pelvis. Orders placed and verified recall letter created. Miguel Dela Cruz RN [facility]06-13-2024 Miscellaneous Notes* Telephone Encounter - Miguel Dela Cruz RN - 09/25/2023 9:[address] Thorpe met with Beck Fraga 08/20/2023 and is recommending follow up visit in a year with Keely Eubanks APRN, ACNS and CTA (chest abdomen and pelvis. Orders placed and verified recall letter created. 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 Patient Mr. Fraga returns, now 12 months following the endovascular repair and 5 years since his openrepair of his thoracoabdominal Aortic Aneurysm, Aortic Dissection, and Endoleak. The patient is asymptomatic. SURGERY DATE: 07/01/2022 Surgeon: Harjit Thorpe MD PROCEDURE(S): TEVAR from zone 3 to 5 (32mm x 209mm RELAY PRO) + Cook Zenith NIRAV from zone 5 to 9 (36mm x 180mm) +LSCA stent (VBX 11x39) + LCCA stents (ABSOLUTE 4x40 + VBX 8x59) + Balloon fracture fenestration + False lumen embolization and endoleak repair with 2 aortic Amplatzer plugs at zone 1 ( 12 and 20 mm). DATE OF SURGERY: 06/04/2018 SURGEON: Harjit Thorpe M.D. SURGERY: Redo median sternotomy, right axillary artery cannulation with a 10 mm Dacron graft, aortic root replacement with reimplantation of the coronary arteries and aortic valve with a 27-mm Inspiris bioprosthetic valve and 30 mm Valsalva graft, ascending and total arch replacement with a 28 mm Dacron graft and direct placement of a 28 mm x 10 cm Relay thoracic stent graft with on-table fenestration and stent grafting of the left subclavian artery with a 13 mm x 2.5 cm Viabahn covered stent, stent graft in the left common carotid artery with a 10 mm x 2.5 cm covered stent, dissection of theleft common carotid artery and dissection of the left subclavian artery, repair of dissected left subclavian and left common carotid arteries, hypothermic circulatory arrest with selective antegrade brain perfusion. The CT scanwas reviewed and reveals a maximum aortic diameter of 40 mm in the area of Residual aneurysm sac. There is no endoleak, patent branch vasculature, no retrograde false lumen perfusion. Impression: The patient is doing well after aortic repair and the last visit. Plan: He will return to see Keely Eubanks in 12 months The following studies will be necessary: - CT C/A/P with and without contrast, post stent - Echocardiogram Harjit Thorpe MD documented in this encounterSal[facility]05-08-2024 History of Present illness Narrative* Aliza Gale RN - 08/20/2023 12:45 PM EDT Radiology Service Progress Note DATE OF SERVICE: August 20, 2023 TIME: 12:45 PM PATIENT WEIGHT: 185 LBS PATIENT IDENTITY VERIFICATION COMPLETED USING TWO (2) STANDARD IDENTIFIERS: Name and Date of confirmed by patient verbally and Name and Date of confirmed by identification band. FALL SCREENING: Has the patient had 2 falls in the last year or 1 fall with injury or currently using an Ambulatory Assistive Device (Walker, Cane, Wheelchair, Crutches, etc.)? No PATIENT GENDER DATA: Male ALLERGIES: Reviewed and unchanged CONTRAST ALLERGY: No EXAM: CT -CONTRAST INDUCED NEPHROPATHY RISK FACTORS: Not applicable CREATININE: Creatinine Date Value Ref Range Status 04/20/2023 1.15 0.50 - 1.40 mg/dL Final Comment: Patients receiving either N-Acetylcysteine (NAC) or Metamizole prior to venipuncture, may have falsely depressed results. 09/20/2022 1.13 0.73 - 1.22 mg/dL Final 07/05/2022 1.01 0.73 - 1.22 mg/dL Final Estimated Glomerular Filtration Rate Date Value Ref Range Status 04/20/2023 79 >=60 mL/min/1.73m Final Comment: Estimated Glomerular Filtration Rate (eGFR) is calculated using the 2020 CKD-EPI creatinine equation. This equation utilizes serum creatinine, sex, and age as parameters. The creatinine assay has traceable calibration to isotope dilution- mass spectrometry. Refer to KDIGO guidelines for clinical interpretation. In patients with unstable renal function, e.g. those with acute kidney injury, the eGFRmay not accurately reflect actual GFR. eGFR- Date Value Ref Range Status 07/13/2018 >60 Final P.O.C.T. RESULTS: N/A August 20, 2023 TREATMENT: N/A IV SITE: Ambulatory: A peripheral IV was started in the Right antecubital site with a Angio cath: 20 gauge. and A Saline lock was inserted per protocol IV SITE APPEARANCE: Clean,Dry and Intact SIGNATURE: Aliza Gale RN PATIENT NAME: Beck Fraga DATE: August 20, 2023 TIME: 12:45 PM * Bailey Sigala RT(R) - 08/20/2023 12:45 PM EDT Radiology Service Progress Note PATIENT NAME: Beck Fraga DATE OF SERVICE: August 20, 2023 TIME: 1:00 PM PATIENT IDENTITY VERIFICATION COMPLETED USING TWO (2) IDENTIFIERS: Name and Date of confirmedby patient verbally. FALL SCREENING: Has the patient had 2 falls in the last year or 1 fall with injury or currently using an Ambulatory Assistive Device (Walker, Cane, Wheelchair, Crutches, etc.)? 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: No RADIOLOGY DEPARTMENT: CT; Exam(s) Completed: Cardiac PERIPHERAL IV DATA: Site assessment: Clean,Dry and Intact, Site disposition Discontinued SIGNED BY: RT Charli(R) August 20, 2023 1:00 PM documented in this [facility]04-11-2024 History of Present illness Narrative* Leticia Rouse RN - 07/24/2023 11:23 AM EDT QOL Call Tracking Documentation Follow-Up Type: Phone Call Call Attempt: 1st Attempt Call Status: Left Message documented in this [facility]09-26-2023 History of Present illness Narrative* Lisa Goddard - 01/07/2023 12:53 PM EDT QOL Call Tracking Documentation Follow-Up Type: Phone Call Call Attempt: 1st Attempt Call Status: Left Message documented in this [facility]06-30-2023 History of Present illness Narrative* Priyanka Oneil Research Coordinator - 10/11/2022 5:11 PM EDT QOL Call Tracking Documentation Follow-Up Type: Phone Call Call Attempt: 1st Attempt Call Status: Patient will complete in MyChart documented in this [facility]06-14-2023 History of Present illness Narrative* Karoline Quiroz, [facility] - 09/25/2022 9:33 AM EDT GENETIC COUNSELING CONSULTATION Beck Fraga is a 47 year old male with a history of aortic dissection referred for genetic counseling by Dr. Harjit Thorpe. He is unaccompanied to his appointment. HISTORY OF PRESENT ILLNESS: Beck Fraga presented with a sudden type A dissection in 2013 which also involved his bicuspid aortic valve replacement with a bioprosthetic valve. Relevant history summarized: -- s/p 2013 aortic valve replacement (bioprosthetic) & ascending aortic dissection repair (supracoronary graft). Done at [facility] in [place]. -- postop 2013 had a postoperative stroke (in 2013), with residual left hand weakness. 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 -- 06/04/2018 aortic valve replacement (27mm Inspiris bioprosthetic valve), aortic root replacement (30 mm Valsalva graft), ascending / total arch replacement (28 mm Dacron graft) and stent grafting of left subclavian artery / left common carotid artery, dissection of left common carotid artery / left subclavian artery, and repair of dissected left subclavian and left common carotid arteries. [facility],Dr Thorpe. -- 06/03/22 TEVAR from zone 3 to 5 (32mm x 209mm RELAY PRO) + Cook Zenith NIRAV from zone 5 to 9 (36mmx 180mm) + LSCA stent (VBX 11x39) + LCCA stents (ABSOLUTE 4x40 + VBX 8x59) + Balloon fracture fenestration + False lumen embolization and endoleak repair with 2 aortic Amplatzer plugs at zone 1 ( 12 and 20 mm). CCF[facility] Also history of coronary artery disease, seizures, migraines, vasovegal syncope, tobacco use (quit smoking & chewing) and GERD. The patient comes for genetic counseling to discuss additional genetic testing. 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 Legs Soft/Velvety skin: No Abnormal scars: No Thin skin: No Hyperextensible skin: No Livedo reticularis: No Easy bruising: Yes, only with anticoagulant therapy Varicose veins: Yes. Age diagnosed after his surgery at 38 Pes planus: No Food or environmental allergies: No Gastrointestinal inflammatory disease: GERD secondary to his medications. Hollow organs such as intestine and spleen prone to rupture: No SOCIAL HISTORY: Lives in [place] with and 2 children ages 10 and 12. On disability FAMILY HISTORY: The full family history will be available under scanned documents in the electronic medical record.Significant diagnoses are listed below: Son: Normal echo. Son: Normal echo.Allergies, ADD, migraines (had a normal MRI) Sister 1: Normal echo for her and her 4 children. Sister 2: Normal echo for her and her 4 children. Mother: Normal echo. mini stroke, cardiac arrhthymias no details known, History of encephalitis. Maternal aunts (3): No known medical concerns for them or their children. Maternal grandmother: 50. Suicide. Maternal grandfather: at 87 Father: History of TIAs and some white matter disease. Paternal aunt: Asthma no other concerns known for her or her children. Paternal uncle: at 50 from complications of lung cancer. Paternal grandmother: at 80's from complications of ovarian cancer surgery. Paternal grandfather: 97. His father suddenly at 50's. Patient's maternal ancestors are of mixed descent, and paternal ancestors are of [place] descent. The remainder of the family history is negative for aneurysms, sudden , early-onset stroke/[place], known genetic disease, defects, multiple miscarriages or stillbirths, infant , dev elopmental delay, mental retardation and consanguinity. IMPRESSION: Beck Fraga is a 47 year old male with a history of aortic dissection and bicuspid aortic valve. His family history is not clearly contributory, although there is a history of TIAs and sudden .This may suggest the possibility of a heritable condition with a risk for arterial complications. He underwent genetic testing in 2019 through [facility] that was negative. We discussed that clinic aortic gene panels have been updated since that time. Additional genetic testing is available now. Most significantly would be a gene called LOX that is known to cause aortic disease and bicuspid aortic valve along with some connective tissue features. Discussed option of proceeding with new testing now versus waiting for more genes to be identified. Beck Fraga declined proceeding with testing today but is interested in possibility pursuing genetic testing in the future. Also discussed that we could also consider more advanced testing such as exome or genome sequencing. PLAN: - Beck Fraga declined to proceed with a new panel now; would like to reconsider again in the future. - The patient will be contacted by telephone and/or letter with these results. The patient gave permission to share results with his . A follow up genetic counseling visit will be scheduled if indicated. Online Resources: [email or web address] The patient was seen for a total of 10 minutes in vjxh-we-nute counseling. This plan is being carried out under oversight of Dr. Barbara Osorio, Clinical Kinesiology Professor. This note is available to the patient through [employer] and will be sent to the referring provider through [facility] or the [place] Mail as necessary. Karoline Quiroz MS, [facility], Licensed Genetic Counselor [facility] CC: Dr. Harjit Osorio documented in this encounterSalem [facility]06-09-2023 History of Present illness Narrative* Jessica Montano RN - 09/20/2022 2:00 PM EDT Radiology Service Progress Note DATE OF SERVICE: September 20, 2022 TIME: 9:00 AM PATIENT WEIGHT: 195 LBS PATIENT IDENTITY VERIFICATION COMPLETED USING TWO (2) STANDARD IDENTIFIERS: Name and Date of confirmed by patient verbally. FALL SCREENING: Has the patient had 2 falls in the last year or 1 fall with injury or currently using an Ambulatory Assistive Device (Walker, Cane, Wheelchair, Crutches, etc.)? No PATIENT GENDER DATA: Male ALLERGIES: Reviewed and unchanged CONTRAST ALLERGY: No EXAM: CT -CONTRAST INDUCED NEPHROPATHY RISK FACTORS: Not applicable CREATININE: Creatinine Date Value Ref Range Status 07/05/2022 1.01 0.73 - 1.22 mg/dL Final 07/04/2022 1.04 0.73 - 1.22 mg/dL Final 07/03/2022 1.09 0.73 - 1.22 mg/dL Final Estimated Glomerular Filtration Rate Date Value Ref Range Status 07/05/2022 92 >=60 mL/min/1.73m Final Comment: Estimated Glomerular Filtration Rate (eGFR) is calculated using the 2020 CKD-EPI creatinine equation. This equation utilizes serum creatinine, sex, and age as parameters. The creatinine assay has traceable calibration to isotope dilution- mass spectrometry. Refer to KDIGO guidelines for clinical interpretation. In patients with unstable renal function, e.g. those with acute kidney injury, the eGFRmay not accurately reflect actual GFR. eGFR- Date Value Ref Range Status 07/13/2018 >60 Final P.O.C.T. RESULTS: N/A September 20, 2022 TREATMENT: N/A IV SITE: Ambulatory: A peripheral IV was started in the Right antecubital site with a Angio cath: 20 gauge. IV SITE APPEARANCE: Clean,Dry and Intact SIGNATURE: Jessica Montano RN PATIENT NAME: Beck Fraga DATE: September 20, 2022 TIME: 9:00 AM * Afshan Pierce RT(R) - 09/20/2022 2:00 PM EDT Radiology Service Progress Note PATIENT NAME: Beck Fraga DATE OF SERVICE: September 20, 2022 TIME: 9:06 AM PATIENT IDENTITY VERIFICATION COMPLETED USING TWO (2) IDENTIFIERS: Name and Date of confirmedby patient verbally and Name and Date of confirmed by identification band. FALL SCREENING: Has the patient had 2 falls in the last year or 1 fall with injury or currently using an Ambulatory Assistive Device (Walker, Cane, Wheelchair, Crutches, etc.)? No PATIENT GENDER DATA: Male PATIENT RELEVANT IMPLANT DATA REVIEWED: Yes RADIOLOGY DEPARTMENT: CT; Exam(s) Completed: Cardiac PERIPHERAL IV DATA: Site assessment: Clean,Dry and Intact, Site disposition Discontinued SIGNED BY: RT Meg(R) September 20, 2022 9:06 AM documented in this encounterSal[facility]04-24-2023 History of Present illness Narrative* Leticia Rouse RN - 08/05/2022 11:06 AM EDT QOL Call Tracking Documentation Follow-Up Type: Phone Call Call Attempt: 1st Attempt Call Status: Left Message documented in this encounterSalem [facility]03-28-2023 Miscellaneous Notes* Telephone Encounter - Stephanie Segundo RN - 07/09/2022 3:58 PM EDT PD nurse called patient for follow up from recent hospital discharge, but no answer. Left message on [employer] including resource nurse phone number. Stephanie Segundo RN documented in this encounterSalem [facility] Center03-21-2023 History of Past illness Narrative* Problem Noted Date Resolved Date Hypovolemia 07/02/2022 07/04/2022 Overview: See care cooridnation Postoperative hypotension 06/05/20182018 Overview: A/p Wean [place] gtt for maps 70-80 Hypoxia 06/04/2018 06/10/2018 Overview: Grade 2. 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 Extubated NOS A/p improved NC; wean o2,pep,ezpap,oob Postoperative hypertension 06/04/2018 0 06/05/2018 Overview: A/p Wean NTG gtt MAPs 80-100 Stress hyperglycemia 06/04/2018 019 Overview: A/p SSI Postoperative hypovolemia 06/04/2018 Overview: PRN IVF replacement Idiopathic medial aortopathy and arteriopathy 06/03/19 19 06/04/2018 documented as of this encounter (statuses as of 01/08/2023) [facility]03-21-2023 History of Past illness Narrative* Problem Noted Date Diagnosed Date Resolved Date Hypovolemia 07/02/2022 07/04/2022 Overview: See care cooridnation Postoperative hypotension 06/05/2018 Overview: A/p Wean [place] gtt for maps 70-80 Hypoxia 06/04/2018 06/10/2018 Overview: Grade 2. Extubated NOS A/p improved NC; wean o2,pep,ezpap,oob Postoperative hypertension 06/04/2018 0 06/05/2018 Overview: A/p Wean NTG gtt MAPs 80-100 Stress hyperglycemia 06/04/2018 019 Overview: A/p SSI Postoperative hypovolemia 06/04/2018 Overview: PRN IVF replacement Idiopathic medial aortopathy and arteriopathy 06/03/19 19 06/04/2018 documented as of this encounter (statuses as of 05/26/2023) [facility]03-21-20[facility] History of Past illness Narrative* Problem Noted Date Diagnosed Date Resolved Date Hypovolemia 07/02/2022 07/04/2022 Overview: See care cooridnation Postoperative hypotension 06/05/2018 Overview: A/p Wean [place] gtt for maps 70-80 Hypoxia 06/04/2018 06/10/2018 Overview: Grade 2. Extubated NOS A/p improved NC; wean o2,pep,ezpap,oob Postoperative hypertension 06/04/2018 0 06/05/2018 Overview: A/p Wean NTG gtt MAPs 80-100 Stress hyperglycemia 06/04/2018 019 Overview: A/p SSI Postoperative hypovolemia 06/04/2018 Overview: PRN IVF replacement Idiopathic medial aortopathy and arteriopathy 06/03/19 19 06/04/2018 documented as of this encounter (statuses as of 07/24/2023) [facility]03-16-2023 Instructions* Patient Instructions* Donnie Jiang, DMD - 06/27/2022 4:13 PM EDT Recovering from Extraction Surgery / [facility] Normally after the surgery, you may experience some temporary changes in the mouth and cheek area. Here is what you can expect during your recovery. Bleeding You may experience some oozing of blood the first day and night following surgery. Remember that one drop of blood mixed with your own saliva may lead you to believe that your bleeding is much worse than it actually is. You can protect your pillow with a towel as you rest. You may apply pressure tothe area by biting on a piece of gauze or a dampened tea bag; this will help form a clot and bleeding should subside. Do not disturb the blood clots once they are formed, so that the healing process will begin. If you have stitches in your mouth, they will dissolve on their own in 7 - 10 days, so do not disturb them. It is okay if they fall out on their own. Please contact the office if the bleeding persists. Pain You may be given a prescription for pain medication, take as directed. Do not take additional Tylenol (acetaminophen) while you are taking narcotic medications, as these medications already contain acetaminophen. The pain medication is generally needed the first 2-3 days after the surgery, and after that regular Tylenol and/or Motrin (Ibuprofen) may be used as directed. However, if pain persists and the prescription is not effective in relief, please contact our office. Swelling It is common to experience temporary swelling of your cheeks post-operatively. This usually peaks within 3 days. Applying ice to the cheeks for 20 minutes on and 20 minutes off in the first 24 hours,followed by warm heat after the first day should keep the swelling to minimum. Bruising of the faceis not uncommon, which may fade in a few days. Also, the inability to open wide is to be expected, again warm heat should be applied and will help soothe this. Diet The first couple of days, you may be limited to a liquid or soft diet. For the first 24 hours, do not eat or drink anything hot in temperature, as this can increase the chance of bleeding. Avoid using a straw and do not spit forcefully as these activities may loosen and dislodge the blood clots. Possible complications - Dry socket: healing can be delayed if the blood clot covering the socket is dissolved or washed away. Remember to avoid certain activities that may increase your chance of dry socket such as: sucking through a straw, spitting forcefully, and smoking. This exposes the bone and leads to constant, deep throbbing pain several days after surgery. If you experience these symptoms, call our office immediately. - Infection: although it is minimal, there is always a risk of infection with any surgery. This usually can be treated by draining the infection or taking antibiotics, or both. You may be given a prescription for antibiotics. Please take these medications until you are finished with the course. Keep in mind that antibiotics can make oral and administered contraceptive medications unreliable. - Sinus problems: because the upper teeth are close to the sinus cavity, on rare occasions, the removal of these teeth can lead to a opening into the sinus cavity. If a small perforation exists, thiswill usually heal uneventfully. However, if problem persists, further treatment may be needed. - Numbness (paresthesia): impacted teeth may be close to, or in contact with the nerves that supplysensation to the teeth, gums, cheeks, lips, and tongue. Sometimes these nerves can become injured when the tooth is removed, causing numbness and tingling. In most cases if this occurs, the nerve repairs and regenerates in time. In rare cases, numbness can be permanent. Post-operative DOs and Don'ts - DO rest the day of surgery and avoid any strenuous activities. Plan to take time off from work orschool for a few days, because your routine may be disrupted. - DO rinse with salt water 3-4 times a day until your follow up appointment, starting 1 day after the surgery. - DO eat soft foods such as soups, blenderized meals, and gell-o for the first couple of days aftersurgery. - DO drink lots of fluids, but avoid using a straw as this may dislodge blood clots. - DO apply ice packs intermittently for the first 24 hours after surgery to help reduce swelling. - DON'T rinse your mouth or spit forcefully the day of surgery. - DON'T smoke after surgery, as this may dislodge blood clots as well as reduce flood flow to the extraction site, hindering the healing process. - DON T pull on the stitches; they will dissolve or fall out on their own. - DON'T drink alcohol while you are taking prescribed medications or antibiotics. - DON'T operate heavy machinery or make important decisions while taking prescribed narcotics, as these medications may make you drowsy and impair your judgment. - DON'T brush your teeth on the area of surgery for the first day. After the first day, gentle brushing is recommended. Tooth extraction surgery is an extremely common procedure. Your doctor will do everything possible to make sure that your surgery proceeds as smoothly as possible. We will see you 7 - 10 days after surgery in our office. Please call the office at [phone] for any questions or concerns. [facility] History of Present illness Narrative* Donnie Jiang DMD - 06/27/2022 4:10 PM EDT ORAL & MAXILLOFACIAL SURGERY PROCEDURE NOTE 06/27/2022 HPI: Patient is a 46 year old male who presents for procedure. Medical/surgical/social history reviewed: no changes. Surgery to be performed was reviewed. All R/B/As associated with procedure and anesthesia discussedagain and all questions answered. INFORMED CONSENT Beck Fraga Medical Record: [id number] Procedure:Exo #19 The risks, benefits and anticipated outcomes of the procedure, the risks and benefits of the alternatives to the procedure and the roles and tasks of the personnel to be involved were discussed with the patient and the patient consents to the procedure and agrees to proceed. I verify that I personally obtained Beck Fraga's consent. Donnie Jiang DMD June 27, 2022 4:11 PM Dept of DENTISTRY UNIVERSAL PROTOCOL / SAFETY CHECKLIST Procedure to be Performed: Exco #19 Sign In: A Moment of CARE was completed. Personnel directly involved with the procedure wore the appropriate PPE (Personal Protective Equipment). Patient/Surrogate Stated/Verified: PATIENT VERIFIED(optional for EMERGENT procedures): Patient name, Date of , Relevant allergies, and The intended procedure Time Out Communication: Intended patient and procedure match the source documents. Consent documented and matches the intended procedure. Sign Out: SIGN OUT (optional for EMERGENT procedures): No specimen collected. Donnie Jiang DMD PROCEDURE: P: Dx: Caries into pulp #19 Extraction(s): #19 T: 3 carpules - Local Anesthesia 4% Septocaine with 1:100,000 Epi Reviewed PMH. Risks benefits and alternatives to the procedure were discussed with the patient. Informed Consent was obtained.Topical anesthesia was applied. Local Anesthesia was administered. Tooth #19 was extracted with elevator and extraction forceps. Curettage of extraction socket. Irrigation with NS. [place] hemostasis. No complications. Post operativeinstructions given to the patient. E: Pt cooperative N: 1. Follow up with [facility] as needed 2. Scripts: Peridex DISPOSITION: - Home with instructions Donnie Jiang DMD [facility] History of Present illness Narrative* Xavier Pollard MD - 06/27/2022 8:01 AM EDT Images from the original note were not included. [facility] V[facility] [place] DEPARTMENT OF VASCULAR SURGERY OUTPATIENT VISIT DATE June 27, 2022 OUTPATIENT VISIT TYPE CONSULTATION SERVICE DATE: 06/27/2022 SERVICE TIME: 8:02 AM PRIMARY CARE PHYSICIAN: Nguyễn Stark MD REFERRING PROVIDER: LELE Consult requested for an opinion regarding the evaluation and treatment of the above. My final impression and recommendations will be communicated back to the requesting physician by way of the shared medical record or letter via [place] mail. CHIEF COMPLAINT: Carotid dissection HISTORY OF PRESENT ILLNESS: Vascular consultation at the request of Dr. Brian. A copy of this consultation note will be providedto the requesting physician by way of shared Medical record or letter to requesting physician via US mail. Mr. Fraga is a 46 year old male who is seen today for aortic dissection. Has had b-safer but there isdilation in the proximal DTA. He will e going to OR with Dr. Thorpe. PAST MEDICAL HISTORY Diagnosis Date Aortic dissection (HCC) 2013 s/p 2013 AVR / ascending aortic dissection repair. 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 Aortic dissection (HCC) 2013 s/p 2013 AVR / ascending aortic dissection repair. 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 Bicuspid aortic valve 2013 s/p 2013 AVR / ascending aortic dissection repair. 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 CAD (coronary artery disease) 2013 Carotid artery dissection (HCC) 2013 Dizziness Former tobacco use quit smoking & chewing GERD (gastroesophageal reflux disease) History of spinal cord injury Migraine Pleuritis Postoperative atrial fibrillation (HCC) 05/2018 postop 05/2018 atrial fibrillation (tx amio). Seizures (HCC) 2013 Stroke ([facility]) 2013 9 days post op 2014 after aorta surgery. residual left hand weakness. Vasovagal syncope PAST SURGICAL HISTORY Procedure Laterality Date APPENDECTOMY age 11 HEART SURGERY HX 06/04/2018 REDO Aortic valve replace (27mm Inspiris bioprosthetic valve), aortic root replacement (30mm Valsalva graft), ascending / total arch replacement (28 mm Dacron graft) and stent grafting of left subclavian artery / left common carotid artery, dissection of left common carotid artery / left subclavianartery, and repair of dissected left subclavian and left common carotid arteries Dr Maurilio YOUNG HEART SURGERY HX 2014 Aortic valve replacement (bioprosthetic) & ascending aortic dissection repair (supracoronary graft). Done at [facility] in [place]. MYRINGOTOMY ASPIR&/EUSTACHIAN TUBE NFLTJ ANES age 4 Myringotomy/tubes TILT TABLE TEST 07/22/2017 VASECTOMY UNI/BI SPX W/POSTOP SEMEN EXAMS 02/10/09 SOCIAL HISTORY: Social History Tobacco Use Smoking status: Former Packs/day: 1.00 Years: 20.00 Pack years: 20.00 Types: Cigarettes Quit date: 03/11/2014 Years since quittin.3 Smokeless tobacco: Former Types: Chew Substance Use Topics Alcohol use: No Drug use: No FAMILY HISTORY Problem Relation Age of Onset Stroke Mother Hyperlipidemia Mother Stroke Father Heart disease Father Hypertension Father Hyperlipidemia Father MEDICATIONS: omeprazole (PRILOSEC) 20 mg capsule^Take 1 capsule by mouth once daily.^Disp: 90 capsule^Rfl: 3 atorvastatin (LIPITOR) 40 mg tablet^Take 40 mg by mouth once daily.^Disp: ^Rfl: citalopram hydrobromide (CELEXA) 10 mg tablet^Take 10 mg by mouth once daily.^Disp: ^Rfl: Multivitamin capsule^Take 1 capsule by mouth once daily.^Disp: ^Rfl: clopidogrel (PLAVIX) 75 mg tablet^Take 75 mg by mouth once daily. ^Disp: ^Rfl: aspirin 81 mg chewable tablet^Take 81 mg by mouth once daily.^Disp: ^Rfl: mupirocin (BACTROBAN) 2 % ointment^Apply a small amount in each nostril using a cotton swab twice the day before surgery and once the morning of surgery.^Disp: 22 g^Rfl: 0 metoprolol tartrate, short acting, (LOPRESSOR) 25 mg tablet^TAKE 1/2 (ONE-HALF) OF A TABLET TWICE DAILY^Disp: 90 tablet^Rfl: 3 (Patient not taking: Reported on 06/26/2022) Amoxicillin 500 mg tablet^Take 500 mg by mouth as needed. Before dental procedures^Disp: ^Rfl: (Patient not taking: Reported on 06/25/2022) simvastatin (ZOCOR) 20 mg tablet^Take 20 mg by mouth daily at bedtime.^Disp: ^Rfl: (Patient not taking: No sig reported) ALLERGIES: ALLERGIES Allergen Reactions Atorvastatin Other: See Comments Citalopram Other: See Comments Acetaminophen Shortness of Breath Oxycodone Shortness of Breath Percocet [Oxycodone* Shortness of Breath REVIEW OF SYSTEM: Constitutional: No weight loss, malaise or fevers. HEENT: Negative for frequent or significant headaches Respiratory: Negative for cough, wheezing, or shortness of breath Cardiovascular: Negative for chest pain, leg swelling or palpitations Gatrointestinal: Negative for abdominal discomfort, blood in stools or black stools or change in bowel habits Genitourinary: No history of dysuria, frequency, or incontinence Musculoskeletal: Negative for joint pain or swelling, back pain or muscle pain Endocrine: Negative for cold or heat intolerance, polyuria, polydipsia and goiter Hematology/Lymphatic: Negative for prolonged bleeding, bruising easily or swollen nodes Neurologic: No history or headaches, syncope, paralysis, seizures or tremors Integumentary: Negative for lesions, rash, and itching. PHYSICAL EXAM: VITALS: BP 146/73 Pulse 58 Resp 17 Ht 5' 6 (1.68m) Wt 192 lb (87.1kg) SpO2 98% BMI 31.00 kg/(m^2). General: WDWN in NAD Skin: No lesions; normal color, turgor HEENT: NCAT PERRLA EOMI No icterus or adenopathy Carotid: bruits none Pulmonary: Clear to percussion and auscultation Coronary: Normal S1, S2; no murmurs, rubs or gallops Abdomen: No organomegaly, normal bowel sounds, non-tender Extremities: Normal range of motion, no edema or ulceration Vascular: 2+ Pulses throughout carotid, brachial radial, femoral, popliteal, PT, DP Neurologic: Awake, alert and oriented. Normal and symmetrical M/S function. Diagnostic tests reviewed for today's visit: Most recent imaging IMPRESSION: Mr. Fraga is a 46 year old male has extensive dissection with dilation . PLAN and RECOMMENDATIONS: Tevar/false [id number] embo. Will be available for helping carotid stenting if needed Medical Decision Making: Medical Decision Making Level: 1 - N/A SIGNATURE: Xavier Pollard MD PATIENT NAME: Beck Fraga DATE: June 27, 2022 TIME: 8:02 AM documented in this [facility] History of Present illness Narrative* Priyanka Oneil Research Coordinator - 06/26/2022 6:13 PM EDT QOL Call Tracking Documentation Follow-Up Type: Phone Call Call Attempt: 1st Attempt Call Status: Patient will complete in MyChart documented in this encounterSal[facility] History of Present illness Narrative* Anahy Horn RN - 06/26/2022 3:00 PM EDT CHART COPY-DO NOT DISCARD CARDIOVASCULAR SURGERY PRE-OPERATIVE ASSESSMENT NAME: Beck Fraga Alert Notes: DATE: 06/26/2022 SEX: male : 1975 AGE: [age] year old Estimated body mass index is 30.02 kg/m as calculated from the following: Height as of 05/13/22: 167.6 cm (5' 6). Weight as of 05/13/22: 84.4 kg (186 lb). STS Score No data recorded No data recorded Patient scheduled for surgery on: No data recorded [facility] MD: Jodie Schwarz M.D. REDO: Yes, 2014 type A dissection asc repl / 2019 avr/root/arch/ fet CHIEF COMPLAINT: Pre-Op Open Heart Surgery MEDICATIONS: Current Outpatient Medications Medication Sig iv contrast (will be provided with radiology test) CTA Head/Neck WO/W No IV access, insert saline lock prior to the sedation, infusion, injection for imaging exam. Discontinue saline lock post exam. If Pt. has a central line or IVAD, may access for administration according to line specific nursing protocol. Once exam is complete flush line and de-access according to line specific nursing protocolin the CT contrast administration guidelines link. metoprolol tartrate, short acting, (LOPRESSOR) 25 mg tablet TAKE 1/2 (ONE-HALF) OF A TABLET TWICE DAILY omeprazole (PRILOSEC) 20 mg capsule Take 1 capsule by mouth once daily. atorvastatin (LIPITOR) 40 mg tablet Take 40 mg by mouth once daily. citalopram hydrobromide (CELEXA) 10 mg tablet Take 10 mg by mouth once daily. Amoxicillin 500 mg tablet Take 500 mg by mouth as needed. Before dental procedures (Patient not taking: Reported on 06/25/2022) simvastatin (ZOCOR) 20 mg tablet Take 20 mg by mouth daily at bedtime. Multivitamin capsule Take 1 capsule by mouth once daily. clopidogrel (PLAVIX) 75 mg tablet Take 75 mg by mouth once daily. aspirin 81 mg chewable tablet Take 81 mg by mouth once daily. Current Facility-Administered Medications Medication Dose Route Frequency perflutren lipid microspheres 1.3 mL in NaCl (PF) 0.9% 10 mL injection (DEFINITY) INTRAVENOUS DIRECTED PRN sodium chloride 0.9 % (flush) 10 mL (BD POSIFLUSH) 10 mL INTRAVENOUS DIRECTED PRN ALLERGIES: ALLERGIES Allergen Reactions Atorvastatin Other: See Comments Citalopram Other: See Comments Acetaminophen Shortness of Breath Oxycodone Shortness of Breath Percocet [Oxycodone* Shortness of Breath LATEX ALLERGY: No FOOD SENSITIVITIES: No ANTICOAGULANTS: Plavix OTC ASA Vitamins 06/25/22 STEROIDS: No HISTORIES: FAMILY HISTORY Problem Relation Age of Onset Stroke Mother Hyperlipidemia Mother Stroke Father Heart disease Father Hypertension Father Hyperlipidemia Father PAST MEDICAL HISTORY Diagnosis Date Aortic dissection (HCC) 2013 s/p 2013 AVR / ascending aortic dissection repair. 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 Aortic dissection (HCC) 2013 s/p 2013 AVR / ascending aortic dissection repair. 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 Aortic root aneurysm 2018 s/p 2013 AVR / ascending aortic dissection repair. 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 Bicuspid aortic valve 2013 s/p 2013 AVR / ascending aortic dissection repair. 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 CAD (coronary artery disease) 2013 Carotid artery dissection (HCC) 2013 Dizziness Former tobacco use quit smoking & chewing GERD (gastroesophageal reflux disease) History of spinal cord injury Migraine Pleuritis Postoperative atrial fibrillation (HCC) 05/2018 postop 05/2018 atrial fibrillation (tx amio). Seizures (HCC) 2013 Stroke ([facility]) 2013 9 days post op 2013 after aorta surgery. residual left hand weakness. Vasovagal syncope PAST SURGICAL HISTORY Procedure Laterality Date APPENDECTOMY age 11 HEART SURGERY HX 06/04/2018 REDO Aortic valve replace (27mm Inspiris bioprosthetic valve), aortic root replacement (30mm Valsalva graft), ascending / total arch replacement (28 mm Dacron graft) and stent grafting of left subclavian artery / left common carotid artery, dissection of left common carotid artery / left subclavianartery, and repair of dissected left subclavian and left common carotid arteries [facility], Dr Thorpe HEART SURGERY HX 2013 Aortic valve replacement (bioprosthetic) & ascending aortic dissection repair (supracoronary graft). Done at [facility] in [place]. 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, Dizziness episodes infrequent with position changes / / hx of CVA after 2013 ORwith left hand severe weakness residual - left hand moves very slowly and very slow hand grasp and 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 PERFUSION INDEX: DOMINANT HAND: right-handed Pacer Check: NA CARDIAC EVALUATION: Cardiac Cath: Date - pending Ultrasound: Date - carotids 06/26/22 PFT: Date - na ECHO: Last ECHO Result Conclusion ECHO Collected: 05/13/2022 9:41 AM (Final result) Impression: CONCLUSIONS: - Exam indication: s/p AVR, Asc. aorta replacement - The left ventricle is normal in size. Left ventricular systolic function is normal. EF = 62 5% (2D biplane) Indeterminate left ventricular diastolic dysfunction. - The right ventricle is normal in size. Right ventricular systolic function is normal. - There is mild (1-2+) late systolic mitral regurgitation. - Inspiris prosthetic aortic valve (size #27). There is trace (trace - 1+) aortic valve regurgitation. The peak gradient is 19 mmHg, the mean gradient is 9 mmHg and the dimensionless valve index is 0.41. Prior peak/mean gradients were 20/9 mmHg, DI 0.40. - There is mild (1+) pulmonary regurgitation. - Exam was compared with the prior CC echocardiographic exam performed on 04/23/2021. Comparable findings. * * * Final * * * CT Scan: Last CT Result Conclusion CTA CHEST (GATED) W IVCON Exam End: 05/13/2022 11:24 AM (Final result) Impression: IMPRESSION: 1. No significant interval changes since prior study. Intact composite bioprosthetic aortic valve and ascending aorta surgical graft and frozen elephant trunk with endovascular stent grafts. Dissection continues through the descending thoracic and abdominal aorta, and into right common iliac artery, no substantial change in mild ectasia and partial thrombus within proximal descending segment. Conduit Reamer Operator: PSCB Transcribe Date/Time: May 13 2022 12:01P Dictated by : ANDI LOPEZ MD This examination was interpreted and the report reviewed and electronically signed by: ANDI LOPEZ MD on May 13 2022 12:24PM EST MRI: CXR: No results found. EKG: Last EKG Result Conclusion ECG COMPLETE Collected: 06/25/2022 10:56 AM (Preliminary result) Impression: NORMAL SINUS RHYTHM LEFT AXIS DEVIATION ABNORMAL ECG Dental: Not Cleared pt to have #19 extraction 06/27/22 for [facility] Appt. ? Recent Labs 06/25/22 1126 WBC 6.52 HB 15.8 HCT 46.3 PLT 238 INR 1.0 APTT 26.0 PTSEC 10.1 NA 140 K 4.3 BUN 12 CREAT 1.08 Pre Op Instructions per protocol reviewed and handout given to patient . Patient Education completed and documented. Instructed to start Bactroban per protocol. Emotional support provided to patient and family. All questions and concerns adressed. Signature: Anahy Horn RN See Cardiology History and Physical dated Pt to see Dr. Pollard 06/26/22 and pt to be ADMITTED 06/30/22 [facility] History of Present illness Narrative* Harjit Thorpe MD - 06/26/2022 2:30 PM EDT CHART COPY DO NOT DISCARD Patient Type: Established Visit to determine Surgery: Yes Referring Physician: DHEERAJ VACA [id number] [address] [facility] [id number] HPI: Mr. Beck Fraga is a 46 year old male seen in consultation for opinion regarding treatment options for Aortic Dissection , Aortic Arch Aneurysm, Bicuspid Aortic Valve, and s/p redo root arch and modified FET (B-SAFER). Most of his repaired aorta looks very good but there is some dilatation in the proximal descending aorta around the elephant trunk stentgraft and I think this will best be treated sooner than later with an endovascular approach directed at getting further positive remodeling of his thoracic aorta. DATE OF SURGERY: 06/04/2018 SURGEON: Harjit Thorpe M.D. SURGERY: Redo median sternotomy, right axillary artery cannulation with a 10 mm Dacron graft, aortic root replacement with reimplantation of the coronary arteries and aortic valve with a 27-mm Inspiris bioprosthetic valve and 30 mm Valsalva graft, ascending and total arch replacement with a 28 mm Dacron graft and direct placement of a 28 mm x 10 cm Relay thoracic stent graft with on-table fenestration and stent grafting of the left subclavian artery with a 13 mm x 2.5 cm Viabahn covered stent, stent graft in the left common carotid artery with a 10 mm x 2.5 cm covered stent, dissection of theleft common carotid artery and dissection of the left subclavian artery, repair of dissected left subclavian and left common carotid arteries, hypothermic circulatory arrest with selective antegrade brain perfusion. Impression: Based on my evaluation he is a low risk for aortic repair and endovascular aortic repair. As a result of the March 2021 [facility] decision to cancel non- essential surgeries at [facility] facilities, unless special criteria are met, I have reviewed the clinical record for this patient and have determined that the scheduled procedure meets the criteria to go forward and should be scheduled because of the presence of severe symptoms and/or risk of rapid disease progression. Plan: Endovascular, Descending Aneurysm Repair, Frozen elephant trunk extension and possible false lumen embolization I spent 35 minutes in this visit, with more than 50% of the time devoted to patient counseling. Harjit Thorpe MD documented in this encounter[facility]03-[facility] History of Present illness Narrative* Antonio Bello MD - 06/26/2022 2:12 PM EDT Cardiothoracic Anesthesiology Preoperative Assessment Service Date: 06/26/2022 Service Time: 2:12 PM Primary Care Physician: Nguyễn Stark MD Subjective Scheduled procedure: ENDOVASCULAR REPAIR DESCENDING THORACIC AORTA W/ ENDOPROSTHESIS Surgeon: Harjit Thorpe HPI: 46 year old male seen in periop clinic for abovementioned surgery. He is s/p 2014 aortic valvereplacement (bioprosthetic) & ascending aortic dissection repair (supracoronary graft) c/b postoperative stroke (in 2014), with residual left hand weakness. s/p 2019 aortic valve replacement, aortic root replacement, ascending / total arch replacement and stent grafting of left subclavian artery / left common carotid artery, dissection of left common carotid artery / left subclavian artery, and repair of dissected left subclavian and left common carotid arteries. Other PMHx includes CAD, seizures, migraines, tobacco use (quit smoking & chewing) and GERD. Recently noted to have propagation of dissection in the carotids and some chest pain consequent residual dissection of the descending thoracic and abdominal aorta.... The celiac, SMA, ANNE, right and left renal arteries show no dissection. The right renal artery originates from the false lumen. Review blood transfusion consented - COVID-19 Immunization Status COVID-19 VACCINE (Series Information) Completed 02/07/2022 Imm Admin: COVID-19 booster vaccine, age 12+ yr, bivalent (MODERNA) 08/07/2021 Imm Admin: COVID-19 original vaccine, full dose, monovalent (MODERNA) 02/13/2021 Imm Admin: COVID-19 original vaccine, full dose, monovalent (MODERNA) Only the first 3 history entries have been loaded, but more history exists. The patient has the following: ACTIVE PROBLEM LIST Sterilization Vasovagal Syncope H/O Repair of Dissecting Thoracic Aneurysm Discharge Planning Issues Preop Testing Encounter for Preoperative Anesthesiology Assessment for Cardiac Surgery Chronic Thoracic Aortic Dissection (Hcc) Post-Operative Pain Fluid Overload Postoperative Hypertension Postoperative Atrial Fibrillation (Hcc) Transition of Care Performed With Sharing of Clinical Summary History of Cva (Cerebrovascular Accident) Obesity, Class I, Bmi 30-34.9 PAST MEDICAL HISTORY Diagnosis Date Aortic dissection (HCC) 2013 s/p 2013 AVR / ascending aortic dissection repair. 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 Aortic dissection (HCC) 2013 s/p 2013 AVR / ascending aortic dissection repair. 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 Bicuspid aortic valve 2013 s/p 2013 AVR / ascending aortic dissection repair. 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 CAD (coronary artery disease) 2013 Carotid artery dissection (HCC) 2014 Dizziness Former tobacco use quit smoking & chewing GERD (gastroesophageal reflux disease) History of spinal cord injury Migraine Pleuritis Postoperative atrial fibrillation (HCC) 05/2018 postop 05/2018 atrial fibrillation (tx amio). Seizures (HCC) 2013 Stroke (HCC) 2013 9 days post op 2014 after aorta surgery. residual left hand weakness. Vasovagal syncope PAST SURGICAL HISTORY Procedure Laterality Date APPENDECTOMY age 11 HEART SURGERY HX 06/04/2018 REDO Aortic valve replace (27mm Inspiris bioprosthetic valve), aortic root replacement (30mm Valsalva graft), ascending / total arch replacement (28 mm Dacron graft) and stent grafting of left subclavian artery / left common carotid artery, dissection of left common carotid artery / left subclavianartery, and repair of dissected left subclavian and left common carotid arteries [facility], Dr Thorpe HEART SURGERY HX 2014 Aortic valve replacement (bioprosthetic) & ascending aortic dissection repair (supracoronary graft). Done at [facility] in [place]. MYRINGOTOMY ASPIR&/EUSTACHIAN TUBE NFLTJ ANES age 4 Myringotomy/tubes TILT TABLE TEST 07/22/2017 VASECTOMY UNI/BI SPX W/POSTOP SEMEN EXAMS 02/10/09 FAMILY HISTORY Problem Relation Age of Onset Stroke Mother Hyperlipidemia Mother Stroke Father Heart disease Father Hypertension Father Hyperlipidemia Father Social History Tobacco Use Smoking status: Former Packs/day: 1.00 Years: 20.00 Pack years: 20.00 Types: Cigarettes Quit date: 03/11/2014 Years since quittin.2 Smokeless tobacco: Former Types: Chew Substance Use Topics Alcohol use: No Drug use: No Prior to Admission medications as of 06/26/22 1301 Medication Sig Last Dose Taking iv contrast (will be provided with radiology test) CTA Head/Neck WO/W No IV access, insert saline lock prior to the sedation, infusion, injection for imaging exam. Discontinue saline lock post exam. If Pt. has a central line or IVAD, may access for administration according to line specific nursing protocol. Once exam is complete flush line and de-access according to line specific nursing protocolin the CT contrast administration guidelines link. metoprolol tartrate, short acting, (LOPRESSOR) 25 mg tablet TAKE 1/2 (ONE-HALF) OF A TABLET TWICE DAILY Patient not taking: Reported on 06/26/2022 omeprazole (PRILOSEC) 20 mg capsule Take 1 capsule by mouth once daily. atorvastatin (LIPITOR) 40 mg tablet Take 40 mg by mouth once daily. citalopram hydrobromide (CELEXA) 10 mg tablet Take 10 mg by mouth once daily. Amoxicillin 500 mg tablet Take 500 mg by mouth as needed. Before dental procedures Patient not taking: Reported on 06/25/2022 simvastatin (ZOCOR) 20 mg tablet Take 20 mg by mouth daily at bedtime. Patient not taking: No sig reported Multivitamin capsule Take 1 capsule by mouth once daily. clopidogrel (PLAVIX) 75 mg tablet Take 75 mg by mouth once daily. aspirin 81 mg chewable tablet Take 81 mg by mouth once daily. No medication comments found. ALLERGIES Allergen Reactions Atorvastatin Other: See Comments Citalopram Other: See Comments Acetaminophen Shortness of Breath Oxycodone Shortness of Breath Percocet [Oxycodone* Shortness of Breath Objective Pain Assessment: Vitals: There were no vitals taken for this visit. Diagnostic tests reviewed for today's visit: Lab Value Units Date High Low HB 15.8 g/dL 06/25/2022 17.0 13.0 HCT 46.3 % 06/25/2022 51.0 39.0 WBC 6.52 k/uL 06/25/2022 11.00 3.70 PLT 238 k/uL 06/25/2022 400 150 NA 140 mmol/L 06/25/2022 144 136 K 4.3 mmol/L 06/25/2022 5.1 3.7 GLUC 109 mg/dL 06/25/2022 99 74 BUN 12 mg/dL 06/25/2022 24 9 CREAT 1.08 mg/dL 06/25/2022 1.22 0.73 PTSEC 10.1 sec 06/25/2022 13.0 9.7 INR 1.0 no uni* 06/25/2022 1.3 0.9 APTT 26.0 sec 06/25/2022 32.4 23.0 ALT 38 U/L 06/25/2022 54 10 AST 26 U/L 06/25/2022 40 14 TBILI 0.4 mg/dL 06/25/2022 1.3 0.2 TSH No results within date range. Lab Value Units Date High Low HCGQT No results within date range. UHCG No results within date range. HCG, BODY* No results within date range. Lab Value Units Date High Low ABORHD No results within date range. ABSCREEN No results within date range. No results found for: HBA1C Recent Results (from the past 8760 hour(s)) ECG COMPLETE Collection Time: 06/25/22 10:56 AM Impression NORMAL SINUS RHYTHM LEFT AXIS DEVIATION ABNORMAL ECG Confirmed by ROMEL MCCOLLUM, DRAGAN ([id number]) on 06/26/2022 10:47:55 AM CTA CHEST (GATED) W IVCON Collection Time: 05/13/22 11:24 AM Impression IMPRESSION: 1. No significant interval changes since prior study. Intact composite bioprosthetic aortic valve and ascending aorta surgical graft and frozen elephant trunk with endovascular stent grafts. Dissection continues through the descending thoracic and abdominal aorta, and into right common iliac artery, no substantial change in mild ectasia and partial thrombus within proximal descending segment. Conduit Reamer Operator: PSCB Transcribe Date/Time: May 13 2022 12:01P Dictated by : ANDI LOPEZ MD This examination was interpreted and the report reviewed and electronically signed by: ANDI LOPEZ MD on May 13 2022 12:24PM EST ECHO Collection Time: 05/13/22 9:41 AM Impression CONCLUSIONS: - Exam indication: s/p AVR, Asc. aorta replacement - The left ventricle is normal in size. Left ventricular systolic function is normal. EF = 62 5% (2D biplane) Indeterminate left ventricular diastolic dysfunction. - The right ventricle is normal in size. Right ventricular systolic function is normal. - There is mild (1-2+) late systolic mitral regurgitation. - Inspiris prosthetic aortic valve (size #27). There is trace (trace - 1+) aortic valve regurgitation. The peak gradient is 19 mmHg, the mean gradient is 9 mmHg and the dimensionless valve index is 0.41. Prior peak/mean gradients were 20/9 mmHg, DI 0.40. - There is mild (1+) pulmonary regurgitation. - Exam was compared with the prior echocardiographic exam performed on 04/23/2021. Comparable findings. * * * Final * * * Assessment No problem-specific Assessment & Plan notes found for this encounter. ANESTHESIA FINDINGS: Intubation History: No history of difficult intubation. No abnormal airway history Significant Anesthesia Considerations: Airway History: No history of difficult airway No abnormal airway history Prepared for Surgery: The Following Tests/Procedures Have Been Initiated: No orders of the defined types were placed in this encounter. ASA Class: 4 Planned Anesthetic: general I - PHYSICAL EVALUATION AIRWAY Patient intubated: No. Tracheostomy tube not present Mallampati: II. TM distance: >3 FB. Neck ROM: full ROM without neurological symptoms. Mouth opening: adequate. Short neck: no. Thick neck: no II - ANESTHESIA PLAN ASA Score: 4 Anesthetic Plan: general Airway type: ETT Beta Angela Monitoring Plan Post Procedure Analgesic Plan Informed Consent Anesthetic risks, benefits, alternatives, personnel and consent discussed: yes. Patient / Responsible [employer] agrees to proceed: yes Patient / Surrogate agrees to blood products: Yes Instructions Given to Patient: Instructions located in the after visit summary. Patient given verbal and written preop instructions and voices comprehension and compliance. Anesthesia concerns: Postoperative stroke (residual deficit left elbow to arm)/Afib in the previous surgeries. Last seizure 2013. Signature: Antonio Bello MD, MD Patient Name: Beck Fraga Date: June 26, 2022 Time: 2:12 PM Pager/Contact #: documented in this encounterSal[facility] History of Present illness Narrative* Haile Araya RN - 06/26/2022 9:30 AM EDT Radiology Service Progress Note DATE OF SERVICE: June 26, 2022 TIME: 9:00 AM PATIENT WEIGHT: 186 LBS PATIENT IDENTITY VERIFICATION COMPLETED USING TWO (2) STANDARD IDENTIFIERS: Name and Date of confirmed by patient verbally. FALL SCREENING: Has the patient had 2 falls in the last year or 1 fall with injury or currently using an Ambulatory Assistive Device (Walker, Cane, Wheelchair, Crutches, etc.)? No PATIENT GENDER DATA: Male ALLERGIES: Reviewed and unchanged CONTRAST ALLERGY: No EXAM: CT -CONTRAST INDUCED NEPHROPATHY RISK FACTORS: Not applicable CREATININE: Creatinine Date Value Ref Range Status 06/25/2022 1.08 0.73 - 1.22 mg/dL Final 07/13/2018 1.10 0.73 - 1.22 mg/dL Final 06/18/2018 1.06 0.73 - 1.22 mg/dL Final Estimated Glomerular Filtration Rate Date Value Ref Range Status 06/25/2022 85 >=60 mL/min/1.73m Final Comment: Estimated Glomerular Filtration Rate (eGFR) is calculated using the 2020 CKD-EPI creatinine equation. This equation utilizes serum creatinine, sex, and age as parameters. The creatinine assay has traceable calibration to isotope dilution- mass spectrometry. Refer to KDIGO guidelines for clinical interpretation. In patients with unstable renal function, e.g. those with acute kidney injury, the eGFRmay not accurately reflect actual GFR. eGFR- Date Value Ref Range Status 07/13/2018 >60 Final P.O.C.T. RESULTS: N/A June 26, 2022 TREATMENT: N/A and No Hydration needed. IV SITE: Ambulatory: A peripheral IV was started in the Right antecubital site with a Angio cath: 20 gauge. and A Saline lock was inserted per protocol IV SITE APPEARANCE: Clean,Dry and Intact SIGNATURE: Haile Araya RN PATIENT NAME: Beck Fraga DATE: June 26, 2022 TIME: 9:00 AM * RT Jayson(R) - 06/26/2022 9:30 AM EDT Radiology Service Progress Note PATIENT NAME: Beck Fraga DATE OF SERVICE: June 26, 2022 TIME: 9:26 AM PATIENT IDENTITY VERIFICATION COMPLETED USING TWO (2) IDENTIFIERS: Name and Date of confirmedby patient verbally and Name and Date of confirmed by identification band. FALL SCREENING: Has the patient had 2 falls in the last year or 1 fall with injury or currently using an Ambulatory Assistive Device (Walker, Cane, Wheelchair, Crutches, etc.)? No PATIENT GENDER DATA: Male PATIENT RELEVANT IMPLANT DATA REVIEWED: Yes RADIOLOGY DEPARTMENT: CT; Exam(s) Completed: Cardiac , CTA Brain , and CTA Neck PERIPHERAL IV DATA: Site assessment: Clean,Dry and Intact, Site disposition Discontinued SIGNED BY: RT Jayson(R) June 26, 2022 9:26 AM documented in this encounterSal[facility]03-14-[facility]23 History of Present illness Narrative* Sayda Browning DMD - 06/25/2022 1:53 PM EDT Images from the original note were not included. Head and Neck [facility] CHIEF COMPLAINT: Dental clearance exam HISTORY OF PRESENT ILLNESS: Beck Fraga is a 46 year old male being seen for dental consultation at the request of Dr. Harjit Thorpe prior to open-heart surgery. The patient's last dental visit was 2 years ago. Pain:He denies odontalgia today. PROBLEM LIST: ACTIVE PROBLEM LIST Sterilization Vasovagal Syncope H/O Repair of Dissecting Thoracic Aneurysm Discharge Planning Issues Preop Testing Encounter for Preoperative Anesthesiology Assessment for Cardiac Surgery Chronic Thoracic Aortic Dissection (Hcc) Post-Operative Pain Fluid Overload Postoperative Hypertension Postoperative Atrial Fibrillation (Hcc) Transition of Care Performed With Sharing of Clinical Summary History of Cva (Cerebrovascular Accident) Obesity, Class I, Bmi 30-34.9 CURRENT MEDICATIONS: Current Outpatient Medications on File Prior to Visit Medication Sig metoprolol tartrate, short acting, (LOPRESSOR) 25 mg tablet TAKE 1/2 (ONE-HALF) OF A TABLET TWICE DAILY omeprazole (PRILOSEC) 20 mg capsule Take 1 capsule by mouth once daily. atorvastatin (LIPITOR) 40 mg tablet Take 40 mg by mouth once daily. citalopram hydrobromide (CELEXA) 10 mg tablet Take 10 mg by mouth once daily. simvastatin (ZOCOR) 20 mg tablet Take 20 mg by mouth daily at bedtime. Multivitamin capsule Take 1 capsule by mouth once daily. clopidogrel (PLAVIX) 75 mg tablet Take 75 mg by mouth once daily. aspirin 81 mg chewable tablet Take 81 mg by mouth once daily. Amoxicillin 500 mg tablet Take 500 mg by mouth as needed. Before dental procedures (Patient not taking: Reported on 06/25/2022) Current Facility-Administered Medications on File Prior to Visit Medication perflutren lipid microspheres 1.3 mL in NaCl (PF) 0.9% 10 mL injection (DEFINITY) sodium chloride 0.9 % (flush) 10 mL (BD POSIFLUSH) ALLERGIES: ALLERGIES Allergen Reactions Atorvastatin Other: See Comments Citalopram Other: See Comments Acetaminophen Shortness of Breath Oxycodone Shortness of Breath Percocet [Oxycodone* Shortness of Breath CLINICAL EXAMINATION: General appearance: alert, pleasant. Extraoral, Head and Neck exam: No extraoral swelling or erythema Parotid and submandibular glands soft, nonpainful to palpation bilaterally No lymphadenopathy V1, V2, V3, CN VII intact bilaterally Intraoral Soft Tissues: Tongue soft and non-tender with no apparent lesions. Buccal mucosa without lesions bilaterally. Hard palate is WNL. Soft palate is WNL. Pharynx is WNL. Floor of mouth is WNL. Gingival tissues are erythematous and edematous. Dentition: Caries:Tooth # 19 Retained root tips: None Pain to percussion: None, however, tooth #19 was not percussed due to gross decay and patient's report of previous pain in tooth Mobility: None Oral hygiene: needs improvement. Heavily restored dentition. Radiographic examination: panoramic radiograph taken today Normal trabecular and cortical bone pattern. No apical radiolucencies noted. Caries: 19 ASSESSMENT: Examination of the oral cavity and dentition reveals gross decay #19; other teeth with secondary decay that can be treated by patient's outside dentist. RECOMMENDATIONS: The patient is at high risk of perioperative complication from an oral health standpoint. Recommended extractions: Tooth #19 due to gross decay Recommended debridement prior to surgery/transplant/head & neck radiation: NO Labs needed within 24 hours of dental procedure: None, history of INR in Chart Review. Antibiotic pre-medication required: YES Suggested antibiotic regimen: amoxicillin To be ordered by in-patient team: NO as patient already has Rx for amoxicillin premed for dental care Reason for pre-medication: previous aortic dissection repaired with supracoronary graft. The procedure including risks, benefits, options and personnel performing the procedure was discussed with the patient. Beck Fraga expressed understanding and agreed to proceed. The opinions rendered will be communicated back to the referring provider via shared electronic medical record. NV: extraction #19 Sayda Browning DMD documented in this encounterSal[facility]03[facility]23 History of Present illness Narrative* RT Mira(R) - 06/25/2022 8:30 AM EDT RADIOLOGY SERVICE PROGRESS NOTE SERVICE DATE: 06/25/2022 SERVICE TIME: 7:57 AM PATIENT IDENTITY VERIFICATION COMPLETED USING TWO (2) STANDARD IDENTIFIERS: Name and Date of confirmed by patient verbally FALL SCREENING: Has the patient had 2 falls in the last year or 1 fall with injury or currently using an Ambulatory Assistive Device (Walker, Cane, Wheelchair, Crutches, etc.)? No PATIENT GENDER DATA: .male : No ALLERGIES: Reviewed and unchanged MEDICATIONS REVIEWED: No PATIENT RELEVANT IMPLANT DATA REVIEWED: Not Applicable CREATININE: Creatinine Date Value Ref Range Status 07/13/2018 1.10 0.73 - 1.22 mg/dL Final 06/18/2018 1.06 0.73 - 1.22 mg/dL Final 06/12/2018 0.92 0.73 - 1.22 mg/dL Final eGFR-All Other Races Date Value Ref Range Status 07/13/2018 >60 . Final Comment: eGFR (Estimated GFR) Units of measure: mL/min/1.73 meters squared eGFR is derived from the reexpressed MDRD Study equation using the following parameters: serum creatinine, age, gender and race. The creatinine assay has been calibrated to be traceable to IDMS. An eGFR <60 mL/min/1.73m2 for >3 months is consistent with chronic kidney disease. Refer to KDOQI guidelines for clinical interpretation. In patients with unstable renal function, e.g. those with acute kidney injury, the eGFR may not accurately reflect actual GFR. eGFR- Date Value Ref Range Status 07/13/2018 >60 Final P.O.C.T. RESULTS: N/A June 25, [address] PERFORMED: No IV SITE: Ambulatory: A peripheral IV was started in the Right antecubital site with a Angio cath: 22 gauge. POST EXAM PIV STATUS: Discontinued PROCEDURE TYPE: WI Stress: 12.8mCi [id number] was administered IV for Rest Imaging at 0755 by MB. 31.9 mCi [id number] was administered IV for Stress Imaging by RT Mira(R). PATIENT DISCHARGED TO: Ambulatory patient, left WI department area. A Diagnostic radioactive procedure has taken place, with no further precautions necessary other than routine body substance precautions. More information regarding radiation safety can be found usingthis link: [email or web address] SIGNATURE: RT Mildred(R) PATIENT NAME: Beck Fraga DATE: June 25, 2022 TIME: 7:57 AM PAGER/CONTACT #: [phone] * Ansley Mccann RN - 06/25/2022 8:30 AM EDT RADIOLOGY SERVICE PROGRESS NOTE SERVICE DATE: 06/25/2022 SERVICE TIME: 9:04 AM PATIENT IDENTITY VERIFICATION COMPLETED USING TWO (2) STANDARD IDENTIFIERS: Name and Date of confirmed by patient verbally and Name and Date of confirmed by identification band PATIENT GENDER DATA: male ALLERGIES: Reviewed and unchanged MEDICATIONS REVIEWED BY: Server Manager PROCEDURE TYPE: NM STRESS: 0.4 mg of Lexiscan was administered IV at 0901 by Ansley Mccann RN. Reversal agent used: None. IV SITE: Ambulatory: A Saline lock was inserted per protocol POST EXAM PIV STATUS: Discontinued PATIENT DISCHARGED TO: Ambulatory patient, left [place] department area. A Diagnostic radioactive procedure has taken place, with no further precautions necessary other than routine body substance precautions. More information regarding radiation safety can be found usingthis link: [email or web address] SIGNATURE: Ansley Mccann RN PATIENT NAME: Beck Fraga DATE: June 25, 2022 TIME: 9:04 AM PAGER/CONTACT #: [phone] documented in this encounter[facility]23 Miscellaneous Notes* Telephone Encounter - Eleni Pereyra - 05/15/2022 6:28 AM EST IN * Telephone Encounter - Izabella Coleman - 05/14/2022 5:19 PM EST Insurance Card(s) scanned into [employer] Please register/advise Thank You! documented in this encounterSalem [facility]01-31-2023 Miscellaneous Notes* Telephone Encounter - Izabella - 05/14/2022 5:20 PM EST Internal referral sent to NP 05/14/22 documented in this encounterSalem [facility]01-30-2023 History of Present illness Narrative* Benton Schwarz MD - 05/13/2022 12:27 PM EST Images from the original note were not included. [facility] [place] [facility] Department of Cardiovascular Medicine SECTION OF CARDIOVASCULAR IMAGING OUTPATIENT VISIT DATE May 13, 2022 OUTPATIENT VISIT TYPE ESTABLISHED PRIMARY CARE PHYSICIAN: Nguyễn Stark MD [id number] [address] CHIEF COMPLAINT: Follow up HISTORY OF PRESENT ILLNESS: Mr. Fraga is a 46 year old male who presents today for follow-up visit. He has been seen in the past for a bicuspid aortic valve & aortic dissection : -- s/p 2013 aortic valve replacement (bioprosthetic) & ascending aortic dissection repair (supracoronary graft). Done at [facility] in [place]. -- postop 2013 had a postoperative stroke (in 2013), with residual left hand weakness. 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 -- now s/p 06/04/2018 aortic valve replacement (27mm Inspiris bioprosthetic valve), aortic root replacement (30 mm Valsalva graft), ascending / total arch replacement (28 mm Dacron graft) and stent grafting of left subclavian artery / left common carotid artery, dissection of left common carotid artery / left subclavian artery, and repair of dissected left subclavian and left common carotid arteries. [facility], Dr Thorpe. -- postop 05/2018 atrial fibrillation (tx amio). Also history of coronary artery disease, seizures, migraines, vasovegal syncope, tobacco use (quit smoking & chewing) and GERD. 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 He comes in following that for an opinion. Recently his blood pressure has been elevated and he has not been very diligent in measuring. But it fluctuates a fair bit. He denies chest pain, shortness of breath, orthopnea, cough, edema, palpitations, PND, lightheadedness or syncope. Tolerates medications well. NURSING INTAKE: PAST MEDICAL HISTORY Diagnosis Date Aortic dissection ([facility]) 2013 s/p 2013 AVR / ascending aortic dissection repair. 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 Aortic dissection ([facility]) 2013 s/p 2013 AVR / ascending aortic dissection repair. 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 Aortic root aneurysm 2018 s/p 2013 AVR / ascending aortic dissection repair. 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 Bicuspid aortic valve 2013 s/p 2013 AVR / ascending aortic dissection repair. 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 CAD (coronary artery disease) 2013 Carotid artery dissection ([facility]) 2013 Dizziness Former tobacco use quit smoking & chewing GERD (gastroesophageal reflux disease) History of spinal cord injury 1990s Migraine Pleuritis Postoperative atrial fibrillation ([facility]) 05/2018 postop 05/2018 atrial fibrillation (tx amio). Seizures ([facility]) 2013 Stroke ([facility]) 2013 9 days post op 2014 after aorta surgery. residual left hand weakness. Vasovagal syncope PAST SURGICAL HISTORY Procedure Laterality Date APPENDECTOMY age 11 HEART SURGERY HX 06/04/2018 REDO Aortic valve replace (27mm Inspiris bioprosthetic valve), aortic root replacement (30mm Valsalva graft), ascending / total arch replacement (28 mm Dacron graft) and stent grafting of left subclavian artery / left common carotid artery, dissection of left common carotid artery / left subclavianartery, and repair of dissected left subclavian and left common carotid arteries [facility], Dr Thorpe HEART SURGERY HX 2013 Aortic valve replacement (bioprosthetic) & ascending aortic dissection repair (supracoronary graft). Done at [facility] in [place]. MYRINGOTOMY ASPIR&/EUSTACHIAN TUBE NFLTJ ANES age 4 Myringotomy/tubes TILT TABLE TEST 07/22/2017 VASECTOMY UNI/BI SPX W/POSTOP SEMEN EXAMS 02/10/09 SOCIAL HISTORY Social History Tobacco Use Smoking status: Former Packs/day: 1.00 Years: 20.00 Pack years: 20.00 Types: Cigarettes Quit date: 03/11/2014 Years since quittin.1 Smokeless tobacco: Former Types: Chew Substance Use Topics Alcohol use: No Drug use: No FAMILY HISTORY Problem Relation Age of Onset Stroke Mother Hyperlipidemia Mother Stroke Father Heart disease Father Hypertension Father Hyperlipidemia Father ALLERGIES: ALLERGIES Allergen Reactions Atorvastatin Other: See Comments Citalopram Other: See Comments Acetaminophen Shortness of Breath Oxycodone Shortness of Breath Percocet [Oxycodone* Shortness of Breath MEDICATIONS: atorvastatin (LIPITOR) 40 mg tablet^Take 40 mg by mouth once daily.^Disp: ^Rfl: citalopram hydrobromide (CELEXA) 10 mg tablet^Take 10 mg by mouth once daily.^Disp: ^Rfl: Amoxicillin 500 mg tablet^Take 500 mg by mouth as needed. Before dental procedures^Disp: ^Rfl: omeprazole (PRILOSEC) 20 mg capsule^Take 1 capsule by mouth once daily.^Disp: 90 capsule^Rfl: 3 metoprolol tartrate, short acting, (LOPRESSOR) 25 mg tablet^Take 0.5 tablets by mouth twice daily.^Disp: 60 tablet^Rfl: 5 Multivitamin capsule^Take 1 capsule by mouth once daily.^Disp: ^Rfl: clopidogrel (PLAVIX) 75 mg tablet^Take 75 mg by mouth once daily. ^Disp: ^Rfl: aspirin 81 mg chewable tablet^Take 81 mg by mouth once daily.^Disp: ^Rfl: simvastatin (ZOCOR) 20 mg tablet^Take 20 mg by mouth daily at bedtime.^Disp: ^Rfl: (Patient not taking: Reported on 05/13/2022) PHYSICAL EXAMINATION: BP 141/69 (BP Site: Left Arm) Pulse (!) 54 Ht 167.6 cm (5' 6) Wt 84.4 kg (186 lb) SpO2 98% BMI 30.02 kg/m General: Well appearing, in no acute distress. Skin: No clubbing, no cyanosis. Eyes: Extra ocular movements intact Oropharynx: Teeth in good repair. Neck: No jugular venous distention, no carotid bruits, carotids have a normal upstroke, no palpablethyromegaly. Lungs: Clear to auscultation bilaterally, no wheezing or rhonchi. Heart: Regular rhythm, PMI not displaced, S1, S2 normal, no S3, no S4, no heaves, no rub and no murmur. Abdomen: Soft, nontender, bowel sounds normal, no palpable organomegaly, no bruits. Extremities: No peripheral edema . Grade 2/4 distal pulses bilaterally. Neuro: Oriented to person, place and time, alert, cooperative, gait coordinated. CARDIOVASCULAR MEDICINE TESTING: Reviewed all recent data. Outside data is being scanned into our system. IMPRESSION: Mr. Fraga is a 46 year old male here for follow-up. He has been seen in the past for a bicuspid aortic valve & aortic dissection : -- s/p 2013 aortic valve replacement (bioprosthetic) & ascending aortic dissection repair (supracoronary graft). Done at [facility] in [place]. -- postop 2013 had a postoperative stroke (in 2013), with residual left hand weakness. 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 -- now s/p 06/04/2018 aortic valve replacement (27mm Inspiris bioprosthetic valve), aortic root replacement (30 mm Valsalva graft), ascending / total arch replacement (28 mm Dacron graft) and stent grafting of left subclavian artery / left common carotid artery, dissection of left common carotid artery / left subclavian artery, and repair of dissected left subclavian and left common carotid arteries. [facility], Dr Thorpe. -- postop 05/2018 atrial fibrillation (tx amio). Also history of coronary artery disease, seizures, migraines, vasovegal syncope, tobacco use (quit smoking & chewing) and GERD.. 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 He comes in following that for an opinion. Recently his blood pressure has been elevated and he has not been very diligent in measuring. But it fluctuates a fair bit. He denies chest pain, shortness of breath, orthopnea, cough, edema, palpitations, PND, lightheadedness or syncope. Tolerates medications well. PLAN AND RECOMMENDATIONS: His gated thorax CT scan done today appears stable. 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 We will get him to see Dr. Pollard in vascular surgery. I also want him to reestablish care and continue periodic visits with Dr. Thorpe. Both referrals were placed. I have told him to monitor his blood pressure twice a day on a consistent basis and send us a report in the next few weeks. We will do a virtual visit with Darling Oconnor NP in my office to make any antihypertensive adjustments. All questions answered. I personally interviewed, confirmed and edited the above information as obtained by others. CONTACT INFORMATION: Benton Schwarz MD, FACC, [place], [facility] docking saw operator, [facility] and Maken[facility] Department of Cardiovascular Medicine [facility] [place] [facility] Desk [place] [address] Office - [phone] extension [phone] Office Appointments: [phone] extension [phone] documented in this encounterSalem [facility] Medical Center01-30-2023 History of Present illness Narrative* Pat Suero RN - 05/13/2022 11:00 AM EST Radiology Service Progress Note DATE OF SERVICE: May 13, 2022 TIME: 10:54 AM PATIENT WEIGHT: 187LBS PATIENT IDENTITY VERIFICATION COMPLETED USING TWO (2) STANDARD IDENTIFIERS: Name and Date of confirmed by patient verbally and Name and Date of confirmed by identification band. FALL SCREENING: Has the patient had 2 falls in the last year or 1 fall with injury or currently using an Ambulatory Assistive Device (Walker, Cane, Wheelchair, Crutches, etc.)? No PATIENT GENDER DATA: Male ALLERGIES: Reviewed and unchanged CONTRAST ALLERGY: No EXAM: CT -CONTRAST INDUCED NEPHROPATHY RISK FACTORS: Not applicable CREATININE: Creatinine Date Value Ref Range Status 07/13/2018 1.10 0.73 - 1.22 mg/dL Final 06/18/2018 1.06 0.73 - 1.22 mg/dL Final 06/12/2018 0.92 0.73 - 1.22 mg/dL Final eGFR-All Other Races Date Value Ref Range Status 07/13/2018 >60 . Final Comment: eGFR (Estimated GFR) Units of measure: mL/min/1.73 meters squared eGFR is derived from the reexpressed MDRD Study equation using the following parameters: serum creatinine, age, gender and race. The creatinine assay has been calibrated to be traceable to IDMS. An eGFR <60 mL/min/1.73m2 for >3 months is consistent with chronic kidney disease. Refer to KDOQI guidelines for clinical interpretation. In patients with unstable renal function, e.g. those with acute kidney injury, the eGFR may not accurately reflect actual GFR. eGFR- Date Value Ref Range Status 07/13/2018 >60 Final P.O.C.T. RESULTS: N/A May 13, 2022 TREATMENT: N/A IV SITE: Ambulatory: A peripheral IV was started in the Right forearm with a Angio cath: 20 gauge. and A Saline lock was inserted per protocol IV SITE APPEARANCE: Clean,Dry and Intact SIGNATURE: Pat Suero RN PATIENT NAME: Beck Fraga DATE: May 13, 2022 TIME: 10:54 AM * Mirella Brown RT(R) - 05/13/2022 11:00 AM EST Radiology Service Progress Note PATIENT NAME: Beck Fraga DATE OF SERVICE: May 13, 2022 TIME: 11:20 AM PATIENT IDENTITY VERIFICATION COMPLETED USING TWO (2) IDENTIFIERS: Name and Date of confirmedby patient verbally and Name and Date of confirmed by identification band. FALL SCREENING: Has the patient had 2 falls in the last year or 1 fall with injury or currently using an Ambulatory Assistive Device (Walker, Cane, Wheelchair, Crutches, etc.)? No PATIENT GENDER DATA: Male PATIENT RELEVANT IMPLANT DATA REVIEWED: Yes RADIOLOGY DEPARTMENT: CT; Exam(s) Completed: Cardiac PERIPHERAL IV DATA: Site assessment: Clean,Dry and Intact, Site disposition Discontinued SIGNED BY: RT Jayson(R) May 13, 2022 11:20 AM documented in this encounterSalem [facility] Center01-30-2023 Miscellaneous Notes* Addendum Note - RT Jayson(R) - 05/13/2022 11:00 AM ESTEncounter addended by: RT Jayson(R) on: 05/13/2022 11:21 AM Actions taken: Clinical Note Signed, Check Out activity completed documented in this encounterSalem [facility] Medical Center11-10-2022 Miscellaneous Notes* Telephone Encounter - Dulce Brown Adm - 02/21/2022 10:33 AM EST Received fax of outside CT results DOS: 02/20/22. Uploaded to Scanned Docs via [employer]. documented in this encounterSalem [facility] Center02-16-2022 NoteHNO ID: [id number] Author: Airam Camacho, CT Service: Radiology Author Type: Technologist Type: Progress Notes Filed: 05/30/2021 1:41 PM Note Text: Radiology Service Progress Note DATE OF SERVICE: May 30, 2021 TIME: 1:41 PM PATIENT IDENTITY VERIFICATION COMPLETED USING TWO (2) STANDARD IDENTIFIERS: Name and Date of confirmed by patient verbally and Name and Date of confirmed by identification band. FALL SCREENING: Has the patient had 2 falls in the last year or 1 fall with injury or currently using an Ambulatory Assistive Device (Walker, Cane, Wheelchair, Crutches, etc.)? No PATIENT GENDER DATA: Male PATIENT RELEVANT IMPLANT DATA REVIEWED: Yes ALLERGIES: Reviewed and unchanged CONTRAST ALLERGY: NO. EXAM: CT -CONTRAST INDUCED NEPHROPATHY RISK FACTORS: Not applicable CREATININE: Creatinine Date Value Ref Range Status 07/13/2018 1.10 0.73 - 1.22 mg/dL Final 06/18/2018 1.06 0.73 - 1.22 mg/dL Final 06/12/2018 0.92 0.73 - 1.22 mg/dL Final eGFR-All Other Races Date Value Ref Range Status 07/13/2018 >60 . Final Comment: eGFR (Estimated GFR) Units of measure: mL/min/1.73 meters squared eGFR is derived from the reexpressed MDRD Study equation using the following parameters: serum creatinine, age, gender and race. The creatinine assay has been calibrated to be traceable to IDMS. An eGFR <60 mL/min/1.73m2 for >3 months is consistent with chronic kidney disease. Refer to KDOQI guidelines for clinical interpretation. In patients with unstable renal function, e.g. those with acute kidney injury, the eGFR may not accurately reflect actual GFR. eGFR- Date Value Ref Range Status 07/13/2018 >60 Final P.O.C.T. RESULTS: N/A May 30, 2021 TREATMENT: N/A PERIPHERAL IV DATA: Ambulatory: A peripheral IV was started in the Right antecubital site with a Angio cath: 20 gauge. RADIOLOGY DEPARTMENT: CT; Exam(s) Completed: CTA Cardiac SIGNATURE: TERRELL Palomo PATIENT NAME: Beck Fraga DATE: May 30, 2021 TIME: 1:41 PMEast [id number] History of Past illness Narrative* Problem Noted Date Resolved Date Postoperative hypotension 06/05/20182018 Overview: A/p Wean [place] gtt for maps 70-80 Hypoxia 06/04/2018 06/10/2018 Overview: Grade 2. 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 Nguyễn Stark MD Status:REG S DC Y Race: C Location: [place] [address] Anesthesia: Postop Eval I Current Vital Signs Temperature: 97.1 F Pulse Rate: 58 Blood Pressure: 120/104 Respiratory Rate: 16 Pulse Ox: 93 Oxygen Delivery Method: Nasal Cannula Oxygen Flow Rate (L/min): 3 Assessment Airway patent: Yes Spontaneous unlabored respirations: Yes Mental status: Awake nausea: No Vomiting: No Anesthesia Complication: No Fluid Hydration Crystalloid volume administer (ml): 300 Total IV fluid infused: 300 Progress Note Anesthesia document: Postop Eval 1 completed: Yes 08/30/24 0743 <Electronically signed by Kaiden Hall CRNA> Date _ Kaiden Hall DIRECTOR OF FRONT OFFICE Cosigner Signature: Date CC: ~ Signed [facility] Work Phone: Consult note Author Brando Hilario [facility] Note Date/Time August 30, 2024 8:27a [facility] Medical [facility] Department [address] [place] [address] Anesthesia Postop Eval II 08/30/24 0804 MR#: [id number] Acct: [id number] Name: BECK FRAGA Rep #:[id number] : 1975 48 From: Brando Hilario MD PCP: Dr. Nguyễn Stark MD Status:REG S DC Y Race: C Location: [address] Anesthesia Postop Eval I Sum Postop Eval Completion status Anesthesia document: Postop Eval 1 completed: Yes Anesthesia Postop Eval I Summary Anesthesia Postop Eval I Summary: Anesthesia Postop Eval I: Assessment Summary Airway patent Yes 08/30/24 07:43 DIRECTOR OF FRONT OFFICE.SOBR Spontaneous unlabored Yes 08/30/24 07:43 DIRECTOR OF FRONT OFFICE.SOBR respirations Mental status Awake 08/30/24 07:43 DIRECTOR OF FRONT OFFICE.SOBR nausea No 08/30/24 07:43 DIRECTOR OF FRONT OFFICE.SOBR Vomiting No 08/30/24 07:43 DIRECTOR OF FRONT OFFICE.SOBR Anesthesia Postop Eval I: Fluid Summary Crystalloid volume administer 300 08/30/24 07:43 DIRECTOR OF FRONT OFFICE.SOBR (ml) Colloids volume administered ( ml) Blood Product volume administered (ml) Total IV fluid infused 300 08/30/24 07:43 DIRECTOR OF FRONT OFFICE.SOBR Anesthesia Postop Eval I: Summary Notes Anesthesia Complication No 08/30/24 07:43 DIRECTOR OF FRONT OFFICE.SOBR Anesthesia Complication Comment: Post-operative progress note Anesthesia: Postop Eval II Evaluation Mental status: Awake Pain Level: 0 nausea: No Vomiting: No 08/30/24 0804 <Electronically signed by Brando Hilario MD > Date _ Brando Hilario MD Cosigner Signature: Date CC: ~ Signed [facility] Work Phone: Evaluation noteNo assessment information available [facility] Work Phone: Evaluation note* Diagnosis Chest pain due to myocardial ischemia, unspecified ischemic chest pain type- Primary documented in this encounter [facility] note* Diagnosis 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 of aorta, thoracoabdominal documented in this encounter [facility] note* Diagnosis Chest pain due to myocardial ischemia, unspecified ischemic chest pain type documented in this encounter [facility] note* Diagnosis Dissection of carotid artery (HCC)- Primary Dissection of carotid artery documented in this encounter [facility] note* Diagnosis Onset Date Resolution Status Daytime hypersomnia acute [facility] Work Phone: Evaluation note* Diagnosis Encounter for screening for cardiovascular disorders Screening for other and unspecified cardiovascular conditions Disorder of artery or arteriole (HCC) Unspecified disorders of arteries and arterioles Encounter for other preprocedural examination 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, 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 Pre-op testing Preoperative examination, unspecified Encounter for screening for cardiovascular disorders Screening for other and unspecified cardiovascular conditions Disorder of artery or arteriole (HCC) Unspecified disorders of arteries and arterioles Encounter for other preprocedural examination 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, 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 Pre-op testing Preoperative examination, unspecified documented in this encounter [facility] note* Diagnosis Encounter for preoperative anesthesiology assessment for cardiac surgery- Primary Encounter for screening for cardiovascular disorders Screening for other and unspecified cardiovascular conditions Disorder of artery or arteriole (HCC) Unspecified disorders of arteries and arterioles Encounter for other preprocedural examination 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, 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 Pre-op testing Preoperative examination, unspecified documented in this encounter [facility] note* Diagnosis Encounter for preoperative anesthesiology assessment for cardiac surgery- Primary Encounter for screening for cardiovascular disorders Screening for other and unspecified cardiovascular conditions Disorder of artery or arteriole (HCC) Unspecified disorders of arteries and arterioles Encounter for other preprocedural examination 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, 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 Pre-op testing Preoperative examination, unspecified documented in this encounter [facility] note* Diagnosis Pre-op exam- Primary Preoperative examination, unspecified Encounter for screening for cardiovascular disorders Screening for other and unspecified cardiovascular conditions Disorder of artery or arteriole (HCC) Unspecified disorders of arteries and arterioles Encounter for other preprocedural examination 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, 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 Pre-op testing Preoperative examination, unspecified documented in this encounter [facility] note* Diagnosis Encounter for screening for cardiovascular disorders Screening for other and unspecified cardiovascular conditions Disorder of artery or arteriole (HCC) Unspecified disorders of arteries and arterioles Encounter for other preprocedural examination 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, 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 Pre-op testing Preoperative examination, unspecified Encounter for screening for cardiovascular disorders Screening for other and unspecified cardiovascular conditions Disorder of artery or arteriole (HCC) Unspecified disorders of arteries and arterioles Encounter for other preprocedural examination 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, 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 Pre-op testing Preoperative examination, unspecified documented in this encounter [facility] note* Diagnosis 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 of aorta, thoracoabdominal Encounter for screening for cardiovascular disorders Screening for other and unspecified cardiovascular conditions Disorder of artery or arteriole (HCC) Unspecified disorders of arteries and arterioles Encounter for other preprocedural examination 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, 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 Pre-op testing Preoperative examination, unspecified documented in this encounter [facility] note* Diagnosis Dental caries on pit and fissure surface penetrating into dentin- Primary Dental caries pit and fissure Encounter for screening for cardiovascular disorders Screening for other and unspecified cardiovascular conditions Disorder of artery or arteriole (HCC) Unspecified disorders of arteries and arterioles Encounter for other preprocedural examination 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, 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 Pre-op testing Preoperative examination, unspecified documented in this encounter [facility] note* Diagnosis Encounter for screening for cardiovascular disorders Screening for other and unspecified cardiovascular conditions Disorder of artery or arteriole (HCC) Unspecified disorders of arteries and arterioles Encounter for other preprocedural examination 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, 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 Pre-op testing Preoperative examination, unspecified documented in this encounter [facility] note* Diagnosis Dissection of ascending aorta (HCC)- Primary Dissection of aorta, thoracic [facility] Diagnosis Dissection of aorta, unspecified portion of aorta (HCC) documented in this encounter [facility] note* Diagnosis Dissection of ascending aorta (HCC)- Primary Dissection of aorta, thoracic documented in this encounter [facility] note* Diagnosis Disorder of artery or arteriole (HCC) Unspecified disorders of arteries and arterioles 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, 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 Personal history of surgery to heart and great vessels, presenting hazards to health [facility]* Diagnosis 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 of aorta, thoracoabdominal documented in this encounter [facility] note* Diagnosis 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 of aorta, thoracoabdominal Disorder of artery or arteriole (HCC) Unspecified disorders of arteries and arterioles Abdominal aortic aneurysm (AAA), unspecified part, unspecified whether ruptured (HCC) documented in this encounter [facility] note* Diagnosis Abdominal aortic aneurysm (AAA), unspecified part, unspecified whether ruptured documented in this encounter [facility] note* Diagnosis 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 of aorta, thoracoabdominal S/P AVR (aortic valve replacement) Heart valve replaced by other means S/P ascending aortic replacement Blood vessel replaced by other means H/O aortic root repair Personal history of surgery to heart and great vessels, presenting hazards to health H/O aortic arch replacement Personal history of surgery to heart and great vessels, presenting hazards to health S/P insertion of endovascular thoracic aortic stent graft Encounter for other preprocedural examination documented in this encounter [facility] for referral (narrative)* Outpatient Procedure (Routine) - Authorized Specialty Diagnoses / Procedures Referred By Contac Referred [facility] Diagnoses Dissection of carotid artery (HCC) Procedures US CAROTID ARTERIES FLAVIA VAS LAB DUPLEX SCAN EXTRACRANIAL ART COMPL BI STUDY Xavier Pollard MD [id number] [place] [address] Referral ID Status Reason Start Date Expiration Date Visits Requested Visits Authorized [id number] Authorized Auto-Generat ed Referral 06/04/2022 06/04/2023 1 1 [facility] for referral (narrative)* Diagnostic Procedure Only (Routine) - Closed Specialty Diagnoses / Procedures Referred By Contact Referred To Contact [facility] Diagnoses Encounter for screening for cardiovascular disorders Disorder of artery or arteriole (HCC) Encounter for other preprocedural examination 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) Pre-op testing Procedures NM CARDIAC PERF STRESS/PHARM MYOCARDIAL SPECT MULTIPLE STUDIES Keely Eubanks, BRIAN.AIR BAG STRIPPER [id number] [facility] [address] [place] [address] Referral ID Status Reason Start Date Expiration Date V isits Requested Visits Authorized [id number] Closed Auto-Generate d Referral 06/14/2022 08/13/2022 2 2 [facility] for referral (narrative)* Outpatient Procedure (Routine) - Authorized Specialty Diagnoses / Procedures Referred By Contac t Referred To Contact [facility] Diagnoses Dissection of ascending aorta (HCC) Procedures ECG COMPLETE ECG ROUTINE ECG W/LEAST 12 LDS W/I&R Benton Schwarz MD [address] [place] [address] [facility] [address] [place] [address] Referral ID Status Reason Start Date Expiration Date Visits Requested Visits Authorized [id number] Authorized Auto-Generat ed Referral 07/05/2022 07/05/2023 1 1 * Outpatient Procedure (Routine) - Pending Review Specialty Diagnoses / Procedures Referred By Contac t Referred To [facility] Diagnoses Dissection of ascending aorta (HCC) Procedures ECHO ECHO TTHRC R-T 2D W/WOM-MODE COMPL SPEC&COLR D Benton Schwarz MD [address] [place] [address] [facility] [address] [place] [address] Referral ID Status Reason Start Date Expiration Date Visits Requested Visits Authorized [id number] Pending Review Auto-Generat ed Referral 07/05/2022 07/05/2023 1 1 [facility] for referral (narrative)No reason for [facility] Work Phone: Summary Purpose Family History No Family History Records Found Relationship Condition Age at Onset Recorded Date/T tommie Not Specified Malignant neoplasm of cervix Unknown Malignant neoplasm of colon Unknown Malignant neoplasm of ovary Unknown Diabetes mellitus Unknown father Cerebrovascular accident (CVA) Unknown Cardiac disease Unknown Hypertension Unknown Myocardial infarction Unknown grandfather Coronary artery disease Unknown mother Cerebrovascular accident (CVA) Unknown Idiopathic pulmonary fibrosis Unknown Advance Directives No Advanced Directives Records Found Advance Directive Response Recorded Date/ Time Living Will No June 26, 2020 8:19pm Power of Typing Bookkeeper No June 26 8:19pm Advance Directive Response Recorded Date/ Time Name of Medical Power of Typing Bookkeeper BRETT FRAGA December 15, 2021 9:28pm Living Will Yes December 15 9:28pm Power of Typing Bookkeeper Yes December 15, 2021 9:28pm Documents on File Type Date Recorded 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 Manager Expl 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 Advance Directive(s) 06/02/2018 9:25 AM Advance Directive Response Recorded Date/ Time Name of Medical Power of Typing Bookkeeper BRETT FRAGA December 15, 2021 8:28pm Living Will No February 17 7:44pm Power of Typing Bookkeeper No February 17, 2022 7:44pm Documents on File Type Date Recorded 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 Manager Expl 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 Advance Directive(s) 06/02/2018 9:25 AM Advance Directive Response Recorded Date/ Time Name of Medical Power of Typing Bookkeeper BRETT FRAGA December 15, 2021 8:28pm Name of Medical Power of Typing Bookkeeper February 26, 2022 3:41pm Living Will Yes February 26 3:41pm Power of Typing Bookkeeper Yes February 26, 2022 3:41pm Advance Directive Response Recorded Date/ Time Name of Medical Power of Typing Bookkeeper BRETT FRAGA December 15, 2021 8:28pm Name of Medical Power of Typing Bookkeeper February 26, 2022 3:41pm Name of Medical Power of Typing Bookkeeper BRETT FRAGA March 24, 2022 8:12pm Living Will Yes March 24 8:12pm Power of Typing Bookkeeper Yes March 24, 2022 8:12pm Advance Directive Response Recorded Date/ Time Name of Medical Power of Typing Bookkeeper February 26, 2022 3:41pm Name of Medical Power of Typing Bookkeeper BRETT FRAGA March 24, 2022 8:12pm Living Will Yes March 24 8:12pm Power of Typing Bookkeeper Yes March 24, 2022 8:12pm Documents on File Type Date Recorded 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 Manager Expl anation Advance Directive(s) 07/02/2022 11:33 AM Documents on File Type Date Recorded 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 Manager Expl anation Advance Directive(s) 07/02/2022 11:33 AM Advance Directive Response Recorded Date/ Time Living Will Yes March 24 9:12pm Power of Typing Bookkeeper Yes March 24, 2022 9:12pm Advance Directive Response Recorded Date/ Time Living Will Yes March 24 8:12pm Power of Typing Bookkeeper Yes March 24, 2022 8:12pm Advance Directive Response Recorded Date/ Time Do you have a Healthcare Power of Typing Bookkeeper? Yes August 26, 2024 8:47am Chief Complaint and Reason for Visit Chief Complaint Admit Date Dysphagia August 03, 2024 3:0 8pm DYSPHASIA September 07, 2024 12:52 pm Reason for Visit Admit Date Dysphagia August 03, 2024 3:0 8pm Dysphagia August 30, 2024 5:33a m Nausea & vomiting August 30, 2024 5:33a m Chief Complaint STROKE (I63.50). RX HERE Chief Complaint STROKE (I63.50). RX HERE CHEST PAIN Chief Complaint STROKE (I63.50). RX HERE CHEST PAIN chest pain Chief Complaint STROKE (I63.50). RX HERE CHEST PAIN chest pain ABDOMINAL PAIN Chief Complaint STROKE (I63.50). RX HERE CHEST PAIN chest pain ABDOMINAL PAIN CHEST PAIN Chief Complaint STROKE (I63.50). RX HERE CHEST PAIN chest pain ABDOMINAL PAIN CHEST PAIN NEURO SX Chief Complaint CHEST PAIN chest pain ABDOMINAL PAIN CHEST PAIN NEURO SX SONIA Chief Complaint chest pain ABDOMINAL PAIN CHEST PAIN NEURO SX SONIA FACIAL NUMBNESS Sleep apnea HYPERSOMNIA HEMIPLEGIA,CEREBRAL INFARC /RX HERE Reason for Visit Daytime hypersomnia Chief Complaint SCREENING Chief Complaint Admit Date Dysphagia August 03, 2024 3:0 8pm Chief Complaint Admit Date Dysphagia August 03, 2024 3:0 8pm DYSPHASIA September 07, 2024 12:52 pm DYSPHAGIA September 23, 2024 9:55 am Chief Complaint Admit Date Dysphagia August 03, 2024 3:0 8pm DYSPHASIA September 07, 2024 12:52 pm DYSPHAGIA September 23, 2024 9:55 am 2 M FU October 04, 2024 1:47 pm Reason for Referral Specialty Diagnoses / Procedures Referred By Rudi baltazar Referred To Contact CT IMAGING Diagnoses Chest pain due to myocardial ischemia, unspecified ischemic chest pain type Procedures CTA CHEST (GATED) W IVCON CT ANGIOGRAPHY CHEST W/CONTRAST/NONCONTRAST Benton Schwarz MD [address] [place] [address] Ct Imaging Referral ID Status Reason Start Date Expiration Date Visits Requested Visits Authorized [id number] Pending Review Auto-Generat ed Referral 2 03/09/2023 1 1 Specialty Diagnoses / Procedures Referred By Rudi baltazar Referred [facility] Diagnoses Chest pain due to myocardial ischemia, unspecified ischemic chest pain type Procedures ECHO ECHO TTHRC R-T 2D W/WOM-MODE COMPL SPEC&COLR D Benton Schwarz MD [address] [place] [address] [facility] [place] [address] [place] [address] Referral ID Status Reason Start Date Expiration Date Visits Requested Visits Authorized [id number] Pending Review Auto-Generat ed Referral 2 02/07/2023 1 1 Specialty Diagnoses / Procedures Referred By Contac t Referred To Contact [facility] [place] Diagnoses Chest pain due to myocardial ischemia, unspecified ischemic chest pain type Procedures ECG COMPLETE ECG ROUTINE ECG W/LEAST 12 LDS W/I&R Benton Schwarz MD [address] [place] [address] [facility] [address] [address] Referral ID Status Reason Start Date Expiration Date Visits Requested Visits Authorized [id number] Authorized Auto-Generat ed Referral 2 02/07/2023 1 1 Referral ID Status Reason Start Date Expiration Date V isits Requested Visits Authorized [id number] Closed Auto-Generate d Referral 04/29/2022 06/28/2022 1 1 Specialty Diagnoses / Procedures Referred By Contac t Referred To Contact CT IMAGING Diagnoses Dissection of carotid artery (HCC) Procedures CTA NECK W IVCON CT ANGIOGRAPHY NECK W/CONTRAST/NONCONTRAST Xavier Pollard MD [address] [place] [address] Ct Imaging Referral ID Status Reason Start Date Expiration Date Visits Requested Visits Authorized [id number] Pending Review Auto-Generate d Referral Clearance Not Met -Financial Clearance Bypassed 06/25/2022 07/25/2023 1 1 Specialty Diagnoses / Procedures Referred By Contac t Referred To Contact CT IMAGING Diagnoses Dissection of carotid artery (HCC) Procedures CTA HEAD WO/W IVCON CT ANGIOGRAPHY HEAD W/CONTRAST/NONCONTRAST Xavier Pollard MD [address] [place] [address] Ct Imaging Referral ID Status Reason Start Date Expiration Date Visits Requested Visits Authorized [id number] Pending Review Auto-Generate d Referral Clearance Not Met -Financial Clearance Bypassed 06/25/2022 07/25/2023 1 1 Specialty Diagnoses / Procedures Referred By Contac t Referred To Contact CT IMAGING Diagnoses Dissection of aorta, unspecified portion of aorta (HCC) Procedures CTA ABD/PEL WO/W IVCON CT ANGIO ABD&PLVIS CNTRST MTRL W/WO CNTRST Neema Holder, CHAIN BUILDER.[employer] OFFICER [id number] Imaging Referral ID Status Reason Start Date Expiration Date V isits Requested Visits Authorized [id number] Closed Auto-Generate d Referral 09/07/2022 11/06/2022 1 1 Specialty Diagnoses / Procedures Referred By Contac t Referred To Contact CT IMAGING Diagnoses Dissection of aorta, unspecified portion of aorta (HCC) Procedures CTA CHEST (NONGATED) WO/W IVCON CT ANGIOGRAPHY CHEST W/CONTRAST/NONCONTRAST Neema Finch, CHAIN BUILDER.M[employer] OFFICER [address] [place] [address] Ct Imaging Referral ID Status Reason Start Date Expiration Date V isits Requested Visits Authorized [id number] Closed Auto-Generate d Referral 09/07/2022 11/06/2022 1 1 Specialty Diagnoses / Procedures Referred By Contac t Referred To Contact CT IMAGING Diagnoses 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 Procedures CTA ABD/PEL WO/W IVCON CT ANGIO ABD&PLVIS CNTRST MTRL W/WO CNTRST Harjit Cantrell MD [address] [place] [address] Ct Imaging [place] [address] Referral ID Status Reason Start Date Expiration Date Visits Requested Visits Authorized [id number] Pending Peer to Peer Review Auto-Genera kiah Referral Patient Cleared - Admin/Chair man/Directo r advise to proceed or did not respond 08/07/2023 10/06/2023 1 1 Specialty Diagnoses / Procedures Referred By Contac t Referred To Contact CT IMAGING Diagnoses Disorder of artery or arteriole (HCC) Procedures CTA CHEST (NONGATED) WO/W IVCON CT ANGIOGRAPHY CHEST W/CONTRAST/NONCONTRAST Harjit Thorpe MD [address] [place] [address] Ct Imaging [place] [address] Referral ID Status Reason Start Date Expiration Date Visits Requested Visits Authorized [id number] Pending Peer to Peer Review Auto-Genera kiah Referral Patient Cleared - Admin/Chair man/Directo r advise to proceed or did not respond 08/07/2023 10/06/2023 1 1 Specialty Diagnoses / Procedures Referred By Contac t Referred To Contact CT IMAGING Diagnoses Abdominal aortic aneurysm (AAA), unspecified part, unspecified whether ruptured (HCC) Procedures CTA ABD/PEL WO/W IVCON CT ANGIO ABD&PLVIS CNTRST MTRL W/WO CNTRST Harjit Cantrell MD [address] [place] [address] [address] [facility] [place] [address] Referral ID Status Reason Start Date Expiration Date Visits Requested Visits Authorized [id number] Pending Review Auto-Generat ed Referral 09/25/2023 10/24/2024 1 1 Specialty Diagnoses / Procedures Referred By Contac t Referred To Contact CT IMAGING Diagnoses Abdominal aortic aneurysm (AAA), unspecified part, unspecified whether ruptured (HCC) Procedures CTA CHEST (NONGATED) WO/W IVCON CT ANGIOGRAPHY CHEST W/CONTRAST/NONCONTRAST Harjit Thorpe MD [address] [place] [id number] [facility] [place] [address] Referral ID Status Reason Start Date Expiration Date Visits Requested Visits Authorized [id number] Pending Review Auto-Generat ed Referral 09/25/2023 10/24/2024 1 1 Additional Source Comments (unrecognized sect ion and content) No Status Records FoundNo Status Records FoundNo Status Records FoundNo Status Records FoundNo Status Records FoundNo Status Records FoundNo Status Records Found INFORMATION SOURCE (unrecogn ized section and content) DATE CREATED AUTHOR 10/07/2017 [facility] DATE CREATED AUTHOR AUTHOR'S ORGANIZ ATION 02/06/2018 [facility] DATE CREATED AUTHOR AUTHOR'S ORGANIZ ATION 06/22/2018 [facility] DATE CREATED AUTHOR AUTHOR'S ORGANIZ ATION 05/31/2021 [facility] DATE CREATED AUTHOR AUTHOR'S ORGANIZ ATION 04/21/[address] [facility] DATE CREATED AUTHOR AUTHOR'S ORGANIZ ATION 08/21/2024 [facility] DATE CREATED AUTHOR AUTHOR'S ORGANIZ ATION 10/05/2024 [facility] Goals (unrecognized section and content) Goals may be documented in a n alternate sectionGoals may be documented in an alternate sectionGoals may be documented in an alternate sectionGoals may be documented in an alternate sectionGoals may be documented in an alternate sectionGoals may be documented in an alternate sectionGoals may be documented in an alternate sectionGoals may be documented in an alternate sectionGoals may be documented in an alternate sectionGoals may be documented in an alternate sectionGoals may be documented in an alternate sectionGoals may be documented in an alternate sectionGoals may be documented in an alternate section Source Comments (unrecognize d section and content) In the event this informatio n is protected by the Federal Confidentiality of Alcohol and Drug Abuse Patient Records regulations: The Federal rules restrict any use of the information to criminally investigate or prosecute any alcohol or drug abuse patient.[facility] the event this information is protected by the Federal Confidentiality of Alcohol and Drug Abuse Patient Records regulations: The Federal rules restrict any use of the information to criminally investigate or prosecute any alcohol or drug abuse patient.[facility] CenterIn the event this information is protected by the Federal Confidentiality of Alcohol and Drug Abuse Patient Records regulations: The Federal rules restrict any use of the information to criminally investigate or prosecute any alcohol or drug abuse patient.[facility] CenterIn the event this information is protected by the Federal Confidentiality of Alcohol and Drug Abuse Patient Records regulations: The Federal rules restrict any use of the information to criminally investigate or prosecute any alcohol or drug abuse patient.[facility] CenterIn the event this information is protected by the Federal Confidentiality of Alcohol and Drug Abuse Patient Records regulations: The Federal rules restrict any use of the information to criminally investigate or prosecute any alcohol or drug abuse patient.[facility] CenterIn the event this information is protected by the Federal Confidentiality of Alcohol and Drug Abuse Patient Records regulations: The Federal rules restrict any use of the information to criminally investigate or prosecute any alcohol or drug abuse patient.[facility] CenterIn the event this information is protected by the Federal Confidentiality of Alcohol and Drug Abuse Patient Records regulations: The Federal rules restrict any use of the information to criminally investigate or prosecute any alcohol or drug abuse patient.[facility] CenterIn the event this information is protected by the Federal Confidentiality of Alcohol and Drug Abuse Patient Records regulations: The Federal rules restrict any use of the information to criminally investigate or prosecute any alcohol or drug abuse patient.[facility] CenterIn the event this information is protected by the Federal Confidentiality of Alcohol and Drug Abuse Patient Records regulations: The Federal rules restrict any use of the information to criminally investigate or prosecute any alcohol or drug abuse patient.[facility] CenterIn the event this information is protected by the Federal Confidentiality of Alcohol and Drug Abuse Patient Records regulations: The Federal rules restrict any use of the information to criminally investigate or prosecute any alcohol or drug abuse patient.[facility] CenterIn the event this information is protected by the Federal Confidentiality of Alcohol and Drug Abuse Patient Records regulations: The Federal rules restrict any use of the information to criminally investigate or prosecute any alcohol or drug abuse patient.[facility] CenterIn the event this information is protected by the Federal Confidentiality of Alcohol and Drug Abuse Patient Records regulations: The Federal rules restrict any use of the information to criminally investigate or prosecute any alcohol or drug abuse patient.[facility] CenterIn the event this information is protected by the Federal Confidentiality of Alcohol and Drug Abuse Patient Records regulations: The Federal rules restrict any use of the information to criminally investigate or prosecute any alcohol or drug abuse patient.[facility] CenterIn the event this information is protected by the Federal Confidentiality of Alcohol and Drug Abuse Patient Records regulations: The Federal rules restrict any use of the information to criminally investigate or prosecute any alcohol or drug abuse patient.[facility] CenterIn the event this information is protected by the Federal Confidentiality of Alcohol and Drug Abuse Patient Records regulations: The Federal rules restrict any use of the information to criminally investigate or prosecute any alcohol or drug abuse patient.[facility] CenterIn the event this information is protected by the Federal Confidentiality of Alcohol and Drug Abuse Patient Records regulations: The Federal rules restrict any use of the information to criminally investigate or prosecute any alcohol or drug abuse patient.[facility] CenterIn the event this information is protected by the Federal Confidentiality of Alcohol and Drug Abuse Patient Records regulations: The Federal rules restrict any use of the information to criminally investigate or prosecute any alcohol or drug abuse patient.[facility] CenterIn the event this information is protected by the Federal Confidentiality of Alcohol and Drug Abuse Patient Records regulations: The Federal rules restrict any use of the information to criminally investigate or prosecute any alcohol or drug abuse patient.[facility] CenterIn the event this information is protected by the Federal Confidentiality of Alcohol and Drug Abuse Patient Records regulations: The Federal rules restrict any use of the information to criminally investigate or prosecute any alcohol or drug abuse patient.[facility] CenterIn the event this information is protected by the Federal Confidentiality of Alcohol and Drug Abuse Patient Records regulations: The Federal rules restrict any use of the information to criminally investigate or prosecute any alcohol or drug abuse patient.[facility] CenterIn the event this information is protected by the Federal Confidentiality of Alcohol and Drug Abuse Patient Records regulations: The Federal rules restrict any use of the information to criminally investigate or prosecute any alcohol or drug abuse patient.[facility] CenterIn the event this information is protected by the Federal Confidentiality of Alcohol and Drug Abuse Patient Records regulations: The Federal rules restrict any use of the information to criminally investigate or prosecute any alcohol or drug abuse patient.[facility] CenterIn the event this information is protected by the Federal Confidentiality of Alcohol and Drug Abuse Patient Records regulations: The Federal rules restrict any use of the information to criminally investigate or prosecute any alcohol or drug abuse patient.[facility] CenterIn the event this information is protected by the Federal Confidentiality of Alcohol and Drug Abuse Patient Records regulations: The Federal rules restrict any use of the information to criminally investigate or prosecute any alcohol or drug abuse patient.[facility] CenterIn the event this information is protected by the Federal Confidentiality of Alcohol and Drug Abuse Patient Records regulations: The Federal rules restrict any use of the information to criminally investigate or prosecute any alcohol or drug abuse patient.[facility] CenterIn the event this information is protected by the Federal Confidentiality of Alcohol and Drug Abuse Patient Records regulations: The Federal rules restrict any use of the information to criminally investigate or prosecute any alcohol or drug abuse patient.[facility] CenterIn the event this information is protected by the Federal Confidentiality of Alcohol and Drug Abuse Patient Records regulations: The Federal rules restrict any use of the information to criminally investigate or prosecute any alcohol or drug abuse patient.[facility] CenterIn the event this information is protected by the Federal Confidentiality of Alcohol and Drug Abuse Patient Records regulations: The Federal rules restrict any use of the information to criminally investigate or prosecute any alcohol or drug abuse patient.[facility] CenterIn the event this information is protected by the Federal Confidentiality of Alcohol and Drug Abuse Patient Records regulations: The Federal rules restrict any use of the information to criminally investigate or prosecute any alcohol or drug abuse patient.[facility] CenterIn the event this information is protected by the Federal Confidentiality of Alcohol and Drug Abuse Patient Records regulations: The Federal rules restrict any use of the information to criminally investigate or prosecute any alcohol or drug abuse patient.[facility] CenterIn the event this information is protected by the Federal Confidentiality of Alcohol and Drug Abuse Patient Records regulations: The Federal rules restrict any use of the information to criminally investigate or prosecute any alcohol or drug abuse patient.[facility] Care Teams (unrecognized sec tion and content) Arboriculturist Relationship Specialty Start Date End Date Nguyễn Stark Chi PCP - General Gerontology 07/07/17 ThiernoOvidio calixtoril S [address] [address] Cardiology 01/07/18 Jazmin Ortiz MD Neurology 01/07/18 Magaly Feliciano, PLATFORM ENGINEER PLATFORM ENGINEER 06/06/18 Arboriculturist Relationship Specialty Start Date End Date Nguyễn Stark Chi PCP - General Gerontology 07/07/17 ThiernoOvidio calixtoril S [address] [facility] [address] [place] [address] Cardiology 01/07/18 Jazmin Ortiz MD Neurology 01/07/18 Magaly Feliciano, PLATFORM ENGINEER PLATFORM ENGINEER 06/06/18 Arboriculturist Relationship Specialty Start Date End Date Nguyễn Stark Chi PCP - General Gerontology 07/07/17 Thierno, Dominik S [address] [place] [address] [place] [address] Cardiology 01/07/18 Jazmin Ortiz MD [address] [place] [address] [place] [address] Neurology 01/07/18 Magaly Feliciano, PLATFORM ENGINEER PLATFORM ENGINEER 06/06/18 Arboriculturist Relationship Specialty Start Date End Date Nguyễn Stark Chi PCP - General Gerontology 07/07/17 Thierno, Waco S [address] [place] [address] [place] [address] Cardiology 01/07/18 Jazmin Ortiz MD [address] [place] [address] [place] [address] Neurology 01/07/18 Magaly Feliciano, PLATFORM ENGINEER PLATFORM ENGINEER 06/06/18 Arboriculturist Relationship Specialty Start Date End Date Nguyễn Stark Chi PCP - General Gerontology 07/07/17 Thierno, Dominik S [address] [place] [address] [place] [address] Cardiology 01/07/18 Jazmin Ortiz MD [address] [place] [address] [place] [address] Neurology 01/07/18 Magaly Feliciano, PLATFORM ENGINEER PLATFORM ENGINEER 06/06/18 Harjit Thorpe MD [address] [place] [address] Surgeon Cardiac Surg 05/24/22 Arboriculturist Relationship Specialty Start Date End Date Lincoln Nguyễn Gutierres PCP - General Gerontology 07/07/17 Dominik Pa [address] [id number] Cardiology 01/07/18 Jazmin Ortiz MD [address] [facility] [address] [place], [place] [address] Neurology 01/07/18 Magaly Feliciano, PLATFORM ENGINEER PLATFORM ENGINEER 06/06/18 Harjit Thorpe MD [address] [place] [address] Surgeon Cardiac Surg 05/24/22 Team Status: Active Member Role Status Dates Dr. Nguyễn Stark MD Family Provider Active Dr. Nguyễn Stark MD Primary Care Provider Active Team Status: Active Member Role Status Dates Dr. Nguyễn Stark MD Primary Care Provider, Referring Provider Active Dr. Ernesto Mendoza MD Attending Provider Active Team Status: Inactive Member Role Status Dates Dr. Nguyễn Stark MD Primary Care Provider, Referring Provider Active Karoline Daniel RENEWALS REPRESENTATIVE, RENEWALS REPRESENTATIVE-C Attending Provider Active Team Status: Inactive Member Role Status Dates Dr. Nguyễn Stark MD Primary Care Provider Active Dr. Vinnie Jean MD Attending Provider, Emergency Provi will Active Team Status: Inactive Member Role Status Dates Dr. Nguyễn Stark MD Primary Care Provi will, Attending Provider, Referring Provider Active Team Status: Inactive Member Role Status Dates Dr. Nguyễn Stark MD Primary Care Provider Active Kevin Telles MD Attending Provider, Emergency Provid er Active Team Status: Inactive Member Role Status Dates Dr. Nguyễn Stark MD Primary Care Provider, Attending Provider Active Team Status: Active Member Role Status Dates Dr. Nguyễn Stark MD Primary Care Provi will, Attending Provider, Referring Provider Active Team Status: Active Member Role Status Dates Dr. Nguyễn Stark MD Primary Care Provider Active Karoline Daniel RENEWALS REPRESENTATIVE, RENEWALS REPRESENTATIVE-C Attending Provider Active Team Status: Inactive Member Role Status Dates Dr. Nguyễn Stark MD Primary Care Provider Active Karoline Daniel RENEWALS REPRESENTATIVE, RENEWALS REPRESENTATIVE-C Attending Provider Active Arboriculturist Relationship Specialty Start Date End Date Nguyễn Stakr Chi PCP - General Gerontology 07/07/17 Thierno, Dominik S [address] [place] [address] [place] [address] Cardiology 01/07/18 Jazmin Ortiz MD [address] [place], [place] [address] Neurology 01/07/18 Magaly Feliciano, PLATFORM ENGINEER PLATFORM ENGINEER 06/06/18 Harjit Thorpe MD [address] [place] [address] Surgeon Cardiac Surg 05/24/22 Arboriculturist Relationship Specialty Start Date End Date Nguyễn Stark Chi PCP - General Gerontology 07/07/17 Thierno, Dominik S [address] [place] [address] [place] [address] Cardiology 01/07/18 Jazmin Ortiz MD [address] [place] [address] [place] [address] Neurology 01/07/18 Magaly Feliciano, PLATFORM ENGINEER PLATFORM ENGINEER 06/06/18 Harjit Thorpe MD [address] [place] [address] Surgeon Cardiac Surg 05/24/22 Arboriculturist Relationship Specialty Start Date End Date Nguyễn Stark Chi PCP - General Gerontology 07/07/17 Thierno, Waco S [address] [place] [address] [place] [address] Cardiology 01/07/18 Jazmin Ortiz MD [address] [place] [address] [place] [address] Neurology 01/07/18 Magaly Feliciano, PLATFORM ENGINEER PLATFORM ENGINEER 06/06/18 Harjit Thorpe MD [address] [place], [place] [address] Surgeon Cardiac Surg 05/24/22 Arboriculturist Relationship Specialty Start Date End Date Nguyễn Stark Chi PCP - General Gerontology 07/07/17 Thierno, Waco S [address] [place] [address] [place] [address] Cardiology 01/07/18 Jazmin Ortiz MD [address] [place] [address] [place], [place] [address] Neurology 01/07/18 Magaly Feliciano, PLATFORM ENGINEER PLATFORM ENGINEER 06/06/18 Harjit Thorpe MD [address] [place] [address] Surgeon Cardiac Surg 05/24/22 Arboriculturist Relationship Specialty Start Date End Date Nguyễn Stark Chi PCP - General Gerontology 07/07/17 Thierno, Dominik S [address] [place] [address] [place] [address] Cardiology 01/07/18 Jazmin Ortiz MD [address] [place] [address] [place], [place] [id number] Neurology 01/07/18 Magaly Feliciano, PLATFORM ENGINEER PLATFORM ENGINEER 06/06/18 Harjit Thorpe MD [address] [place] [address] Surgeon Cardiac Surg 05/24/22 Arboriculturist Relationship Specialty Start Date End Date Nguyễn Stark Chi PCP - General Gerontology 07/07/17 Thierno, Dominik S [address] [place] [address] [place], [place] [address] [phone] Cardiology 01/07/18 Jazmin Ortiz MD [address] [place] [address] [place] [address] Neurology 01/07/18 Magaly Feliciano, PLATFORM ENGINEER PLATFORM ENGINEER 06/06/18 Harjit Thorpe MD [address] [place] [address] Surgeon Cardiac Surg 05/24/22 Arboriculturist Relationship Specialty Start Date End Date Nguyễn Stark Chi PCP - General Gerontology 07/07/17 Thierno, Dominik S [address] [place] [address] [place] [address] Cardiology 01/07/18 Jazmin Ortiz MD [address] [place] [address] [place] [address] Neurology 01/07/18 Magaly Feliciano, PLATFORM ENGINEER PLATFORM ENGINEER 06/06/18 Harjit Thorpe MD [address] [place] [address] Surgeon Cardiac Surg 05/24/22 Arboriculturist Relationship Specialty Start Date End Date Nguyễn Stark Chi PCP - General Gerontology 07/07/17 Thierno, Waco S [address] [place] [address] [place] [address] Cardiology 01/07/18 Jazmin Ortiz MD [address] [place] [address] [place] [address] Neurology 01/07/18 Magaly Feliciano, PLATFORM ENGINEER PLATFORM ENGINEER 06/06/18 Harjit Thorpe MD [address] [place] [address] Surgeon Cardiac Surg 05/24/22 Arboriculturist Relationship Specialty Start Date End Date Nguyễn Stark Chi PCP - General Gerontology 07/07/17 Thierno, Dominik S [address] [place] [address] [place] [address] Cardiology 01/07/18 Jazmin Ortiz MD [address] [place] [address] [place] [address] Neurology 01/07/18 Magaly Feliciano, PLATFORM ENGINEER PLATFORM ENGINEER 06/06/18 Harjit Thorpe MD [address] [place] [address] Surgeon Cardiac Surg 05/24/22 Arboriculturist Relationship Specialty Start Date End Date LincolnNguyễn valencia Chi PCP - General Gerontology 07/07/17 Thierno, Waco S [address] [place] [address] [place] [address] Cardiology 01/07/18 Jazmin Ortiz MD [address] [place] [address] [place] [address] Neurology 01/07/18 Magaly Feliciano, PLATFORM ENGINEER PLATFORM ENGINEER 06/06/18 Harjit Thorpe MD [address] [place], [place] [address] Surgeon Cardiac Surg 05/24/22 Arboriculturist Relationship Specialty Start Date End Date Nguyễn Stark Chi PCP - General Gerontology 07/07/17 Thierno, Dominik S [address] [place] [address] [place] [address] Cardiology 01/07/18 Jazmin Ortiz MD [address] [place] [address] [place] [address], [place] [address] Neurology 01/07/18 Magaly Feliciano, PLATFORM ENGINEER PLATFORM ENGINEER 06/06/18 Harjit Thorpe MD [address] [place] [address] Surgeon Cardiac Surg 05/24/22 Arboriculturist Relationship Specialty Start Date End Date Nguyễn Stark Chi PCP - General Gerontology 07/07/17 Thierno, Waco S [address] [place] [address] [place] [address] Cardiology 01/07/18 Jazmin Ortiz MD [address] [place] [address] [place] [address] Neurology 01/07/18 Magaly Feliciano, PLATFORM ENGINEER PLATFORM ENGINEER 06/06/18 Harjit Thorpe MD [address] [place] [place] [address] Surgeon Cardiac Surg 05/24/22 Arboriculturist Relationship Specialty Start Date End Date Nguyễn Stark Chi PCP - General Gerontology 07/07/17 Dominik Pa [address] [place] [address] [place] [address] Cardiology 01/07/18 Jazmin Ortiz MD [address] [place] [address] [place], [place] [address] Neurology 01/07/18 Magaly Feliciano, PLATFORM ENGINEER PLATFORM ENGINEER 06/06/18 Harjit Thorpe MD [address] [facility] [place] [address] Surgeon Cardiac Surg 05/24/22 Arboriculturist Relationship Specialty Start Date End Date Nguyễn Stark Chi PCP - General Gerontology 07/07/17 Dominik Pa MD [address] [place] [address] [place], [place] [address] Cardiology 01/07/18 Jazmin Ortiz MD [address] [place] [address] [place], [place] [id number] Neurology 01/07/18 Magaly Feliciano, PLATFORM ENGINEER PLATFORM ENGINEER 06/06/18 Harjit Thorpe MD [address] [place] [place] [address] Surgeon Cardiac Surg 05/24/22 Arboriculturist Relationship Specialty Start Date End Date Nguyễn Stark Chi PCP - General Gerontology 07/07/17 Dominik Pa MD [address] [place] [address] [place] [address] Cardiology 01/07/18 Jazmin Ortiz MD [address] [place] [address] [place] [address] Neurology 01/07/18 Magaly Feliciano, PLATFORM ENGINEER PLATFORM ENGINEER 06/06/18 Harjit Thorpe MD [address] [place] [address] Surgeon Cardiac Surg 05/24/22 Arboriculturist Relationship Specialty Start Date End Date Nguyễn Stark Chi PCP - General Gerontology 07/07/17 Dominik Pa MD [address] [place] [address] [place] [address] Cardiology 01/07/18 Jazmin Ortiz MD [address] [place] [address] [place] [address] Neurology 01/07/18 Magaly Feliciano, PLATFORM ENGINEER PLATFORM ENGINEER 06/06/18 Harjit Thorpe MD [address] [place], [place] [address] Surgeon Cardiac Surg 05/24/22 Arboriculturist Relationship Specialty Start Date End Date Nguyễn Stark Chi PCP - General Gerontology 07/07/17 Dominik Pa MD [address] [address] [place] [address] Cardiology 01/07/18 Jazmin Ortiz MD [address] [address] Neurology 01/07/18 Magaly Feliciano, PLATFORM ENGINEER PLATFORM ENGINEER 06/06/18 Harjit Thorpe MD [address] [place], [place] [address] Surgeon Cardiac Surg 05/24/22 Arboriculturist Relationship Specialty Start Date End Date Nguyễn Stark Chi PCP - General Gerontology 07/07/17 Dominik Pa MD [address] [address] Cardiology 01/07/18 Jazmin Ortiz MD [address] [address] Neurology 01/07/18 Magaly Bennett, PLATFORM ENGINEER PLATFORM ENGINEER 06/06/18 Harjit Thorpe MD [address] [place], [place] [address] Surgeon Cardiac Surg 05/24/22 Arboriculturist Relationship Specialty Start Date End Date Nguyễn Stark Bhavik PCP - General Gerontology 07/07/17 Jazmin Ortiz MD Neurology 01/07/18 Magaly Bennett, PLATFORM ENGINEER PLATFORM ENGINEER 06/06/18 Harjit Thorpe MD [address] [place] [address] Surgeon Cardiac Surg 05/24/22 Arboriculturist Relationship Specialty Start Date End Date Nguyễn Stark Chi PCP - General Gerontology 07/07/17 Jazmin Ortiz MD Neurology 01/07/18 Magaly Bennett, PLATFORM ENGINEER PLATFORM ENGINEER 06/06/18 Harjit Thorpe MD [address] [place] [address] Surgeon Cardiac Surg 05/24/22 Team Status: Active Member Role Status Dates Dr. Nguyễn Stark MD Primary Care Provider Active Team Status: Inactive Member Role Status Dates Dr. Nguyễn Stark MD Primary Care Provider Active Start: June 07, 2024 End: June 07, 2024 Dr. Nguyễn Stark MD Attending Provider Active Start: June 07, 2024 End: June 07, 2024 Team Status: Inactive Member Role Status Dates Dr. Nguyễn Stark MD Primary Care Provider Active Start: August 03, 2024 End: August 03, 2024 Dr. Nguyễn Stark MD Referring Provider Active Start: August 03, 2024 End: August 03, 2024 HOWARD Palafox Attending Provider Active S tart: August 03, 2024 End: August 03, 2024 Team Status: Inactive Member Role Status Dates Dr. Nguyễn Stark MD Primary Care Provider Active Start: August 30, 2024 End: August 30, 2024 Dr. Nguyễn Stark MD Referring Provider Active Start: August 30, 2024 End: August 30, 2024 Dr. Jose Luis Dao DO Attending Provider Active Start: August 30, 2024 End: August 30, 2024 Team Status: Active Member Role Status Dates Dr. Nguyễn Stark MD Primary Care Provider Active Start: August 30, 2024 Dr. Nguyễn Stark MD Referring Provider Active Start: August 30, 2024 Dr. Jose Luis Dao DO Attending Provider Active Start: August 30, 2024 Dr. Jose Luis Dao DO Other Provider Active St art: August 30, 2024 Team Status: Inactive Member Role Status Dates Dr. Nguyễn Stark MD Primary Care Provider Active Start: September 07, 2024 End: September 07, 2024 Dr. Nguyễn Stark MD Attending Provider Active Start: September 07, 2024 End: September 07, 2024 Dr. Nguyễn Stark MD Referring Provider Active Start: September 07, 2024 End: September 07, 2024 Team Status: Inactive Member Role Status Dates Dr. Nguyễn Stark MD Primary Care Provider Active Start: September 23, 2024 End: September 23, 2024 Dr. Nguyễn Stark MD Attending Provider Active Start: September 23, 2024 End: September 23, 2024 Dr. Nguyễn Stark MD Referring Provider Active Start: September 23, 2024 End: September 23, 2024 Team Status: Inactive Member Role Status Dates Dr. Nguyễn Stark MD Primary Care Provider Active Start: October 04, 2024 End: October 04, 2024 Dr. Nguyễn Stark MD Referring Provider Active Start: October 04, 2024 End: October 04, 2024 HOWARD Palafox Attending Provider Active S tart: October 04, 2024 End: October 04, 2024 Reason for Visit (unrecogniz ed section and content) Reason Comments Received Outside Medical Records Reason Comments Radiology CT Specialty Diagnoses / Procedures Referred By Contac t Referred To Contact CT IMAGING Diagnoses Chest pain due to myocardial ischemia, unspecified ischemic chest pain type Procedures CTA CHEST (GATED) W IVCON CT ANGIOGRAPHY CHEST W/CONTRAST/NONCONTRAST Benton Schwarz MD [address] [place] [address] Ct Imaging Referral ID Status Reason Start Date Expiration Date V isits Requested Visits Authorized [id number] Closed Auto-Generate d Referral 04/29/2022 06/28/2022 1 1 Reason Comments Referral Information Consult with Dr. 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) Pre-op testing Procedures NM CARDIAC PERF STRESS/PHARM MYOCARDIAL SPECT MULTIPLE STUDIES Keely Eubanks, CHAIN BUILDER.AIR BAG STRIPPER [address] [id number] Molecular & Functional Imaging [address] [id number] Referral ID Status Reason Start Date Expiration Date V isits Requested Visits Authorized [id number] Closed Auto-Generate d Referral 06/14/2022 08/13/2022 2 2 Reason Comments Dental Clearance - Open Heart Surgery Reason Comments Pre-Op Exam Reason Comments Radiology CT Specialty Diagnoses / Procedures Referred By Contac t Referred To Contact CT IMAGING Diagnoses Encounter for screening for cardiovascular disorders Disorder of artery or arteriole (HCC) Encounter for other preprocedural examination 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) Pre-op testing Procedures CTA ABD/PEL WO/W IVCON CT ANGIO ABD&PLVIS CNTRST MTRL W/WO CNTRST Keely Mccarty, CHAIN BUILDER.AIR BAG STRIPPER [id number] Imaging Referral ID Status Reason Start Date Expiration Date V isits Requested Visits Authorized [id number] Closed Auto-Generate d Referral 06/16/2022 08/15/2022 1 1 Reason Comments New Patient Consult Reason Comments Tooth Extraction Specialty Diagnoses / Procedures Referred By Contac t Referred To Contact DENTISTRY Diagnoses extraction Procedures EXTRACTION, ERUPTED TOOTH REQUIRING REMOVAL OF BONE AND/OR SECTIONING OF TOOTH, AND INCLUDING ELEVATION OF MUCOPERIOSTE Self [facility] [address] [id number] Referral ID Status Reason Start Date Expiration Date V isits Requested Visits Authorized [id number] Closed Dental - Patient Cleared required payment collected 06/25/2022 09/25/2022 1 1 Specialty Diagnoses / [facility] To [facility]urg Diagnoses Encounter for screening for cardiovascular disorders Disorder of artery or arteriole (HCC) Encounter for other preprocedural examination 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 HIGH MDM 60-74 MINUTES Keely Eubanks, CHAIN BUILDER.AIR BAG STRIPPER [address] [place] [address] Referral ID Status Reason Start Date Expiration Date V isits Requested Visits Authorized [id number] Closed PCP Requested Referral 06/11/2022 06/11/2023 1 1 Reason Comments Follow Up Phone Call RC f/u 1st attempt Specialty Diagnoses / Procedures [facility] Diagnoses Dissection of aorta, unspecified portion of aorta (HCC) Procedures CTA ABD/PEL WO/W IVCON CT ANGIO ABD&PLVIS CNTRST MTRL W/WO CNTRST Neema Holder, CHAIN BUILDER.[employer] OFFICER [phone] Imaging Referral ID Status Reason Start Date Expiration Date V isits Requested Visits Authorized [id number] Closed Auto-Generate d Referral 09/07/2022 11/06/2022 1 1 Specialty Diagnoses / Procedures [facility] To Contact Genetics / MEDICAL GENETICS Diagnoses Aortic dissection (HCC) Genetic testing aortic dissection, genetic testing last in 2018 Procedures UNLISTED EVALUATION AND MANAGEMENT SERVICE UNLISTED DIAGNOSTIC RADIOGRAPHIC PROCEDURE UNLISTED CHEMISTRY TEST NEW COUNSELOR ONLY Harjit Thorpe MD [address] [place] [address] Karoline Quiroz LGC [address] [place] [address] Referral ID Status Reason Start Date Expiration Date Visits Re quested Visits Authorized [id number] Closed 09/04/2022 04/13/2023 1 1 Reason Comments Refill Request Specialty Diagnoses / Procedures [facility] Diagnoses 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 Procedures CTA ABD/PEL WO/W IVCON CT ANGIO ABD&PLVIS CNTRST MTRL W/WO CNTRST Harjit Cantrell MD [address] [place] [address] Ct Imaging [address] [address] Referral ID Status Reason Start Date Expiration Date Visits Requested Visits Authorized [id number] Pending Peer to Peer Review Auto-Genera kiah Referral Patient Cleared - Admin/Chair man/Directo r advise to proceed or did not respond 08/07/2023 10/06/2023 1 1 Reason Comments Follow Up Specialty Diagnoses / Procedures Referred By Contac t Referred To Contact CT IMAGING Diagnoses Abdominal aortic aneurysm (AAA), unspecified part, unspecified whether ruptured Procedures CTA ABD/PEL WO/W IVCON CT ANGIO ABD&PLVIS CNTRST MTRL W/WO CNTRST Harjit Cantrell MD [address] [place] [address] Phone: tel: fax: CT IMAGING [address] [address] Referral ID Status Reason Start Date Expiration Date V isits Requested Visits Authorized [id number] Closed Auto-Generate d Referral 09/25/2023 10/24/2024 1 1 Reason Comments Established Patient FOR RECORDS PERTAINING TO PATIENTS WHO ARE OR HAVE BEEN ENROLLED IN A CHEMICAL DEPENDENCY/SUBSTANCEABUSE PROGRAM, SOME INFORMATION MAY BE OMITTED. This clinical summary was aggregated from multiple sources. Caution should be exercised in using it in the provision of clinical care. This summary normalizes information from multiple sources, and as a consequence, information in this document may materially change the coding, format and clinical context of patient data. In addition, data may be omitted in some cases. CLINICAL DECISIONS SHOULD BE BASED ON THE PRIMARY CLINICAL RECORDS. [employer] provides no warranty or guarantee of the accuracy or completeness of information in this document.
[2024-12-01 21:29] LABS: Xtra Tube Kwok EXTRA TUBE
== END | disposition home or self-care (01) ==
LOC: POLAB3 13:28
PROVIDERS: PCP Family Medicine Geriatric Medicine; Visit Provider Family Medicine Geriatric Medicine
DX: I10 Essential (primary) hypertension (principal); E78.5 Hyperlipidemia, unspecified
CPT/HCPCS: 36415; 80053; 80061; 84443; 85025